=== PATIENT | female | born 1950 | race African-American/Black ===

== ENCOUNTER → 2017-04-11 | Outpatient (CLI) | payer OTHER, MEDICARE ==
[~2017-04-11] MED LIST: AC325T PO; ALBU17AE23 IH; ALBU8.5H2 IH; ASP325T PO; CEFU500T5 PO; FURO40TA4 PO; KCL20TCR PO; LEVO500T2 PO; LISI-594 PO; METO25TA PO; WARF7.5T PO; WRF5T PO; qvar IH
--- NOTE | 2017-04-11 13:53 | Diagnostic Imaging Report ---
PROCEDURE: CT chest without contrast. TECHNIQUE: Multiple contiguous axial images were obtained through the chest without the use of intravenous contrast. INDICATION: One-year followup for pulmonary nodule. History of sarcoidosis. Comparison with 03/26/2016. FINDINGS: Scattered 4 and 5 mm pulmonary nodules again noted bilaterally with no change. There is atelectasis within the lingula which is slightly more prominent today than on previous exam. No evidence of bronchial obstruction. There is a new subpleural tree-in-bud infiltrate in the region of the right upper lobe along the major fissure. The previous infiltrate medially in the right lower lobe has resolved. No mediastinal or hilar adenopathy of pathologic size is occurred. Atherosclerotic changes aorta again noted without aneurysm. Pacemaker present. Leads appear in good position. No pleural effusion or pericardial effusion. IMPRESSION: 1. Scattered 4 and 5 mm nodules appear stable. No new nodules have developed. 2. Left lingular atelectasis is slightly more prominent today. 3. New subtle subpleural tree-in-bud infiltrate in the right upper lobe laterally has developed. Similar appearing infiltrate in the right lower lobe medially on previous study has resolved. Dictated by: Dictated on workstation # [id number]
== END ==
LOC: RAD 12:56
PROVIDERS: ATTEND Internal Medicine Critical Care Medicine
DX: R91.8 Other nonspecific abnormal finding of lung field (principal); I50.43 Acute on chronic combined systolic (congestive) and diastolic (congestive) heart failure; N17.9 Acute kidney failure, unspecified; E66.9 Obesity, unspecified; Z87.09 Personal history of other diseases of the respiratory system
CPT/HCPCS: 71250

== ENCOUNTER → 2017-05-23 | Outpatient (CLI) | payer OTHER, MEDICARE | LOC: CARD 10:40 | PROVIDERS: ATTEND Internal Medicine Cardiovascular Disease | DX: I48.92 Unspecified atrial flutter (principal); I50.42 Chronic combined systolic (congestive) and diastolic (congestive) heart failure; N18.3 Chronic kidney disease, stage 3 (moderate); R91.1 Solitary pulmonary nodule; E66.8 Other obesity; I42.0 Dilated cardiomyopathy; I27.0 Primary pulmonary hypertension | CPT/HCPCS: 93306 ==

== ENCOUNTER → 2017-07-29 | Outpatient (CLI) | payer OTHER, MEDICARE ==
[2017-07-29 13:14] LABS: BASOPHILS % (AUTO) 0 % (0-10); EOSINOPHILS # (AUTO) 0.1 10^3/uL (0.0-0.3); EOSINOPHILS % (AUTO) 2 % (0-10); HEMATOCRIT 37 % (35-52); HEMOGLOBIN 11.9 G/DL (11.5-16.0); LYMPHOCYTES % (AUTO) 22 % (12-44); MEAN CORPUSCULAR HEMOGLOBIN 27 PG (25-34); MEAN CORPUSCULAR HGB CONC 33 G/DL (32-36); MEAN CORPUSCULAR VOLUME 84 FL (80-99); MEAN PLATELET VOLUME 10.4 FL (7.4-10.4); MONOCYTES # (AUTO) 0.6 X 10^3 (0.0-1.0); MONOCYTES % (AUTO) 12 % (0-12); NEUTROPHILS # (AUTO) 2.9 X 10^3 (1.8-7.8); NEUTROPHILS % (AUTO) 64 % (42-75); PLATELET COUNT 224 10^3/uL (130-400); RED BLOOD COUNT 4.37 10^6/uL (4.35-5.85); RED CELL DISTRIBUTION WIDTH 14.9 % (10.0-14.5); WHITE BLOOD COUNT 4.6 10^3/uL (4.3-11.0)
[2017-07-29 13:16] LABS: BILIRUBIN,URINE NEGATIVE (NEGATIVE); CLARITY,URINE CLEAR; COLOR,URINE YELLOW; GLUCOSE, URINE (UA) NEGATIVE (NEGATIVE); KETONES,URINE NEGATIVE (NEGATIVE); LEUKOCYTE ESTERASE ,URINE NEGATIVE (NEGATIVE); NITRITE,URINE NEGATIVE (NEGATIVE); PH,URINE 6 (5-9); PROTEIN,URINE NEGATIVE (NEGATIVE); UROBILINOGEN,URINE NORMAL (NORMAL)
[2017-07-29 13:29] LABS: BACTERIA,URINE NEGATIVE /HPF; SQUAMOUS EPITHELIAL CELL,UR 0-2 /HPF
[2017-07-29 13:36] LABS: CALCIUM 9.6 MG/DL (8.5-10.1); CREATININE SERUM 1.77 MG/DL (0.60-1.30); PHOSPHORUS 4.1 MG/DL (2.3-4.7); POTASSIUM 4.7 MMOL/L (3.6-5.0); URIC ACID 7.7 MG/DL (2.6-7.2)
[2017-07-29 13:52] LABS: URINE CREATININE FOR RATIO 29 MG/DL (30-125); URINE PROTEIN FOR RATIO ONLY < 6 MG/DL (6-12)
--- NOTE | 2017-07-29 14:31 | Diagnostic Imaging Report ---
EXAMINATION: Bilateral renal ultrasound. INDICATION: Chronic kidney disease. COMPARISON: There are no prior ultrasound studies available for comparison. FINDINGS: Both kidneys were identified. The right kidney measures 8.9 x 4.3 x 4.7 cm while the left kidney is estimated to be 8.8 x 5.6 x 5.1 cm. There is no evidence for a solid renal mass or for hydronephrosis of either kidney. The renal cortices are normal in thickness and echogenicity. There is no evidence for chronic medical renal disease. There is no shadowing from the kidneys to suggest nephrolithiasis. The bladder is only partially filled and consequently not well evaluated. There is no obvious bladder abnormality identified, although neither ureteral jet was visualized. IMPRESSION: 1. There is no evidence for a solid renal mass or for an acute abnormality of either kidney. 2. The renal cortices are normal in thickness and echogenicity. 3. There is no obvious bladder abnormality noted, although neither ureteral jet was visualized. Dictated by: Dictated on workstation # [id number]
== END ==
LOC: RAD 12:47
PROVIDERS: ATTEND Internal Medicine Nephrology
DX: N18.4 Chronic kidney disease, stage 4 (severe) (principal); I50.9 Heart failure, unspecified; D64.9 Anemia, unspecified; I27.20 Pulmonary hypertension, unspecified
CPT/HCPCS: 36415; 76770; 80069; 81000; 82306; 82570; 82728; 83540; 83970; 84156; 84550; 85025

== ENCOUNTER → 2017-11-25 | Outpatient (CLI) | payer OTHER, MEDICARE ==
[~2017-11-25] MED LIST changes: +DOXY100T2 PO; +LEVO250T11 PO; +ONDA8TAB9 PO
[2017-11-25 15:59] LABS: ABG BASE EXCESS -0.4 MMOL/L (-2.5-2.5); ABG OXYGEN SATURATION 88 % (94-100); ABG PCO2 40 MMHG (35-45); ABG PH 7.39 (7.37-7.43); ABG PO2 61 MMHG (79-93); ABG TCO2 25.1 MMOL/L (21.0-31.0)
[2017-11-25 16:01] LABS: ALLENS TEST YES-POS; INSPIRED O2 2L; PATIENT TEMP 98.3; VENTILATOR NO
== END ==
LOC: RT 15:21
PROVIDERS: ATTEND Nurse Practitioner Family
DX: J45.901 Unspecified asthma with (acute) exacerbation (principal)
CPT/HCPCS: 36600; 82805

== ENCOUNTER → 2017-12-01 | Outpatient (CLI) | payer OTHER, MEDICARE ==
--- NOTE | 2017-12-01 11:36 | Diagnostic Imaging Report ---
PROCEDURE: CT chest without contrast. TECHNIQUE: Multiple contiguous axial images were obtained through the chest without the use of intravenous contrast. INDICATION: Asthma, exacerbation, and lung nodule. COMPARISON: 04/11/2017. FINDINGS: There is cardiomegaly. A pacemaker overlies the left hemithorax. Note is again made of scattered 4-5 mm nodules bilaterally which are unchanged. There is some minimal atelectasis and/or scarring in the lingula. There is no pleural or pericardial fluid. There is no pneumothorax. There is no pathologically enlarged adenopathy in the chest. There are degenerative changes in the spine. There is cholelithiasis. There are questionable inflammatory changes about the kidneys; however, these are only partially visualized on this exam. IMPRESSION: Stable bilateral 4-5 mm pulmonary nodules. Scarring or atelectasis in the lingula. Cardiomegaly. Cholelithiasis. Degenerative changes in the spine. Questionable inflammatory changes about the kidneys which are only partially visualized on this exam. Dictated by: Dictated on workstation # [id number]
--- NOTE | 2017-12-01 12:44 | Diagnostic Imaging Report ---
PROCEDURE: US Venous Lower Ext Ozzy. TECHNIQUE: Multiple real-time grayscale images were obtained over the lower extremities in various projections, bilaterally. Additional duplex Doppler and color Doppler images were also obtained. INDICATION: Bilateral leg edema. FINDINGS: The common femoral, femoral, popliteal veins and tibial veins demonstrate normal response to compression, augmentation and Valsalva. There is a Jolly's cyst measuring 4.2 x 1.2 x 1.9 cm. There are no other lower extremity fluid collections or masses IMPRESSION: No evidence of deep venous thrombosis in either lower extremity. Jolly's cyst. Dictated by: Dictated on workstation # [id number]
== END ==
LOC: RAD 10:39
PROVIDERS: ATTEND Nurse Practitioner Family
DX: M79.89 Other specified soft tissue disorders (principal); J45.901 Unspecified asthma with (acute) exacerbation; R91.8 Other nonspecific abnormal finding of lung field
CPT/HCPCS: 71250; 93970

== ENCOUNTER 2017-12-05 12:12 | Emergency (ER) | payer OTHER, MEDICARE ==
[~2017-12-05] VITALS: Ht 165.1 cm; Wt 113.9 kg
[~2017-12-05 12:12] MED LIST changes: -DOXY100T2 PO; -LEVO250T11 PO; -ONDA8TAB9 PO
[2017-12-05] MEDS ORDERED: raNItidine 50 MG/2 ML INJ (ZANTAC) ONE (12:27)
[2017-12-05] MEDS ORDERED: diphenhydrAMINE 50 MG/ML INJ (BENADRYL) ONE (12:28)
[2017-12-05] MEDS ORDERED: NS IV 1000 ML 1,000 ML ONE (12:28)
[2017-12-05] MEDS ORDERED: methylPREDNISolone 125 MG (Solu-MEDROL) VIAL ONE (12:28)
[2017-12-05 13:59] LABS: BASOPHILS % (AUTO) 0 % (0-10); EOSINOPHILS % (AUTO) 0 % (0-10); HEMATOCRIT 42 % (35-52); HEMOGLOBIN 13.7 G/DL (11.5-16.0); LYMPHOCYTES # (AUTO) 0.3 X 10^3 (1.0-4.0); LYMPHOCYTES % (AUTO) 4 % (12-44); MEAN CORPUSCULAR HEMOGLOBIN 29 PG (25-34); MEAN CORPUSCULAR HGB CONC 33 G/DL (32-36); MEAN CORPUSCULAR VOLUME 88 FL (80-99); MEAN PLATELET VOLUME 10.6 FL (7.4-10.4); MONOCYTES # (AUTO) 0.3 X 10^3 (0.0-1.0); MONOCYTES % (AUTO) 3 % (0-12); NEUTROPHILS # (AUTO) 7.6 X 10^3 (1.8-7.8); NEUTROPHILS % (AUTO) 93 % (42-75); PLATELET COUNT 197 10^3/uL (130-400); RED BLOOD COUNT 4.76 10^6/uL (4.35-5.85); RED CELL DISTRIBUTION WIDTH 16.4 % (10.0-14.5); WHITE BLOOD COUNT 8.2 10^3/uL (4.3-11.0)
[2017-12-05 14:16] LABS: BAND NEUTROPHILS 0 %; BASOPHILS % (MANUAL) 0 %; EOSINOPHILS % (MANUAL) 0 %; LYMPHOCYTES % (MANUAL) 5 %; MONOCYTES % (MANUAL) 1 %; NEUTROPHILS % (MANUAL) 94 %; RBC MORPH NORMAL
[2017-12-05 14:22] LABS: ALANINE AMINOTRANSFERASE 119 U/L (0-55); ALBUMIN 3.7 GM/DL (3.2-4.5); ALKALINE PHOSPHATASE 287 U/L (40-136); BUN/CREATININE RATIO 29; CALCIUM 9.1 MG/DL (8.5-10.1); CARBON DIOXIDE 26 MMOL/L (21-32); CHLORIDE 104 MMOL/L (98-107); CREATININE SERUM 1.54 MG/DL (0.60-1.30); GFR ESTIMATED 41; GLUCOSE 122 MG/DL (70-105); POTASSIUM 4.1 MMOL/L (3.6-5.0); SODIUM 138 MMOL/L (135-145); TOTAL PROTEIN 6.4 GM/DL (6.4-8.2)
[2017-12-05] MEDS ORDERED: RT-ALBUTEROL/IPRATROPIUM 3 ML (DUONEB) VIAL INH ONE (14:45)
--- NOTE | 2017-12-05 15:05 | Diagnostic Imaging Report ---
INDICATION: Shortness of breath. EXAMINATION: PA and lateral chest was obtained at 2:34 p.m. COMPARISON: 10/01/2013. FINDINGS: There is worsening cardiomegaly. Pacemaker device is unchanged. There is central vascular prominence. There is some infiltrate or atelectasis in the right base which appears chronic or recurrent compared to the previous study. There is no pneumothorax or pleural fluid. IMPRESSION: Worsening cardiomegaly and central vascular congestion compared to the prior study. There is some infiltrate or atelectasis in the right base which appears either recurrent or chronic compared to the previous study of 10/01/2013. There is no pneumothorax or pleural fluid. Dictated by: Dictated on workstation # [id number]
[2017-12-05 15:40] VITALS: BP 100/80
--- NOTE | 2017-12-05 15:44 | ED General ---
General Chief Complaint: Respiratory Problems Stated Complaint: SOB,NAUSEA,SWELLING ON LE Nursing Triage Note: Pt c/o worsening SOA over past month. Pt reports SOA is worse today and she feels more tired than normal. Pt reports she was seen by her field cane scaler helper yesterday and had lasix dosage changed. Pt has hx CHF and COPD. Nursing Sepsis Screen: No Definite Risk Source of Information: Patient Exam Limitations: No Limitations History of Present Illness Date Seen by Provider: Dec 05, 2017 Time Seen by Provider: 12:42 Initial Comments This 67-year-old woman presents to emergency room with complaints of shortness of air, dyspnea on exertion, and increased lower extremity swelling over the last 2-3 weeks. She has had some nausea and mild cough but denies fever or production of sputum with her cough. She has history of A. fib and is out of her Eliquis because of an insurance change. She presently takes Lasix and recently had her dosing doubled by her field cane scaler helper. She made this change about 2 days ago. Patient has COPD and CHF. She has maintenance inhaled medications that is presently out of her albuterol inhaler. Her primary care provider is Dr. Eden, her prizer hand is Dr. Wilson, her field cane scaler helper is Dr. Huff, and her strainer cleaner is Dr. Rose. Allergies and Home Medications Allergies Coded Allergies: No Known Drug Allergies (Unverified , 11/03/11) Home Medications Cefuroxime Axetil 500 Mg Tablet, 500 MG PO BID, (Reported) TAKE FOR 5 DAYS Furosemide 40 Mg Tablet, 40 MG PO DAILY, (Reported) Lisinopril 5 Mg Tablet, 5 MG PO DAILY, (Reported) Metoprolol Succinate 25 Mg Tab.sr.24h, 25 MG PO DAILY, (Reported) Potassium Chloride 20 Meq Tab, 20 MEQ PO DAILY, (Reported) Warfarin Sod 7.5 Mg Tablet, 7.5 MG PO UD, (Reported) ON FRIDAY AND FRIDAY Warfarin Sodium 5 Mg Tablet, 5 MG PO UD, (Reported) EVERY DAY EXCEPT FRIDAY AND FRIDAY Patient Home Medication List Home Medication List Reviewed: Yes (this list was loaded in the note prior to medication correction) Review of Systems Constitutional: no symptoms reported EENTM: no symptoms reported Respiratory: see HPI Cardiovascular: see HPI Gastrointestinal: see HPI Genitourinary: no symptoms reported : No Musculoskeletal: no symptoms reported Skin: no symptoms reported Psychiatric/Neurological: No Symptoms Reported Hematologic/Lymphatic: No Symptoms Reported Past Myfvpji-Hotgls-Dpcmvt Hx Past Med/Social Hx: Reviewed and Corrections made Patient Social History Alcohol Use: Denies Use Recreational Drug Use: No Recent Foreign Travel: No Contact w/Someone Who Travel: No Recent Infectious Disease Expo: No Recent Hopitalizations: Yes Physical Abuse: No Sexual Abuse: No Immunizations Up To Date Date of Influenza Vaccine: Feb 06, 2012 Past Medical History Surgeries: Yes (Appy and hysterectomy ') Respiratory: Yes Asthma, COPD Cardiac: Yes (low ef, CHF) Atrial Fibrillation Neurological: Yes Reproductive Disorders: Yes Sexually Transmitted Disease: No Genitourinary: Yes Renal Failure Gastrointestinal: No Endocrine: No HEENT: No Cancer: No Psychosocial: No Nursing Suicide Risk Score: 0 Blood Disorders: Yes Physical Exam Vital Signs Vital Signs - First Documented 12/05/17 12/05/17 12:15 15:40 Temp 97.8 Pulse 81 Resp 15 B/P (MAP) 120/83 (95) Pulse Ox 99 O2 Delivery Room Air Capillary Refill : Less Than 3 Seconds Height, Weight, BMI Height: 5'5.00" Weight: 251lbs. oz. 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 Norm as Tested Skin: Normal Color, Warm/Dry Progress/Results/Core Measures Suspected Sepsis Recent Fever Within 48 Hours: No Infection Criteria Present: None New/Unexplained Altered Menta: No Sepsis Screen: No Definite Risk SIRS Temperature:97.8 Pulse: 81 Respiratory Rate: Laboratory Tests 12/05/17 13:45: White Blood Count 8.2 Blood Pressure 120 /83 Mean: 95 Laboratory Tests 12/05/17 13:45: Creatinine 1.54H, Platelet Count 197, Total Bilirubin 2.0H Results/Orders Lab Results Laboratory Tests Test 12/05/17 13:45 Range/Units White Blood Count 8.2 4.3-11.0 10^3/uL Red Blood Count 4.76 4.35-5.85 10^6/uL Hemoglobin 13.7 11.5-16.0 G/DL Hematocrit 42 35-52 % Mean Corpuscular Volume 88 80-99 FL Mean Corpuscular Hemoglobin 29 25-34 PG Mean Corpuscular Hemoglobin Concent 33 32-36 G/DL Red Cell Distribution Width 16.4 H 10.0-14.5 % Platelet Count 197 130-400 10^3/uL Mean Platelet Volume 10.6 H 7.4-10.4 FL Neutrophils (%) (Auto) 93 H 42-75 % Lymphocytes (%) (Auto) 4 L 12-44 % Monocytes (%) (Auto) 3 0-12 % Eosinophils (%) (Auto) 0 0-10 % Basophils (%) (Auto) 0 0-10 % Neutrophils # (Auto) 7.6 1.8-7.8 X 10^3 Lymphocytes # (Auto) 0.3 L 1.0-4.0 X 10^3 Monocytes # (Auto) 0.3 0.0-1.0 X 10^3 Eosinophils # (Auto) 0.0 0.0-0.3 10^3/uL Basophils # (Auto) 0.0 0.0-0.1 10^3/uL Neutrophils % (Manual) 94 % Lymphocytes % (Manual) 5 % Monocytes % (Manual) 1 % Eosinophils % (Manual) 0 % Basophils % (Manual) 0 % Band Neutrophils 0 % Blood Morphology Comment NORMAL Sodium Level 138 135-145 MMOL/L Potassium Level 4.1 3.6-5.0 MMOL/L Chloride Level 104 98-107 MMOL/L Carbon Dioxide Level 26 21-32 MMOL/L Anion Gap 8 5-14 MMOL/L Blood Urea Nitrogen 44 H 7-18 MG/DL Creatinine 1.54 H 0.60-1.30 MG/DL Estimat Glomerular Filtration Rate 41 BUN/Creatinine Ratio 29 Glucose Level 122 H 70-105 MG/DL Calcium Level 9.1 8.5-10.1 MG/DL Total Bilirubin 2.0 H 0.1-1.0 MG/DL Aspartate Amino Transf (AST/SGOT) 65 H 5-34 U/L Alanine Aminotransferase (ALT/SGPT) 119 H 0-55 U/L Alkaline Phosphatase 287 H 40-136 U/L Troponin I < 0.30 <0.30 NG/ML B-Type Natriuretic Peptide 2508.6 H <100.0 PG/ML Total Protein 6.4 6.4-8.2 GM/DL Albumin 3.7 3.2-4.5 GM/DL My Orders Orders - JERI GUTIERRES MD Ranitidine Injection (Zantac Injection) (12/05/17 12:27) Diphenhydramine Injection (Benadryl Inje (12/05/17 12:28) Methylprednisolone Sod Succ (Solu-Medrol (12/05/17 12:28) Ns Iv 1000 Ml (Sodium Chloride 0.9%) (12/05/17 12:28) BNP (12/05/17 12:42) Cbc With Automated Diff (12/05/17 12:42) Comprehensive Metabolic Panel (12/05/17 12:42) Troponin I (12/05/17 12:42) Saline Lock/Iv-Start (12/05/17 12:42) Ekg Tracing (12/05/17 12:42) Monitor-Rhythm Ecg Trace Only (12/05/17 12:42) Chest Pa/Lat (2 View) (12/05/17 12:42) Manual Differential (12/05/17 13:45) Albuterol/Ipra Inhalation Soln (Duoneb I (12/05/17 14:45) Svn Small Volume Nebulizer (12/05/17 14:40) Medications Given in ED Vital Signs/I&O Capillary Refill : Less Than 3 Seconds Blood Pressure Mean: 95 Progress Note : Progress Note Patient's workup revealed features of congestive heart failure. Patient's dosing of Lasix was just recently changed. Patient does believe she has diuresed more over the last 24 hours and has perhaps not been patient enough with the dosing change. Encouraged patient to have better compliance with her medications. She has been without her albuterol and her Eliquis for a couple of weeks due to an insurance change. She did check with the pharmacy today and noted she is now able to fill her medications. She plans to pick them up today. We discussed adding perhaps an additional 20 mg of Lasix to the morning dose if necessary for further diuresis. She received a DuoNeb treatment in the ER which was helpful. She plans to discuss a nebulizer machine prescription with Dr. Rose. In the meantime, she will use her albuterol rescue inhaler as needed for shortness of breath. We also discussed strategies for better diuresis including elevating legs more and taking her p.m. dose of Lasix earlier in the afternoon. Return precautions discussed. ECG Initial ECG Impression Date: Dec 05, 2017 Initial ECG Impression Time: 13:35 Initial ECG Rate: 94 Initial ECG Rhythm: A Fib/Flutter Comment Atrial fibrillation with no acute ST elevation or depression. LVH with secondary repolarization abnormality by automated read. Diagnostic Imaging Diagonstic Imaging: Xray Plain Films/CT/US/NM/MRI: chest Comments Chest x-ray viewed by me and report reviewed. See report below: NAME: MARQUIS SHEEHAN [facility] REC#: [id number] PT STATUS: DEP ER : [id number] PHYSICIAN: JERI GUTIERRES MD ADMIT DATE: 12/05/17/ER Signed Date of Exam: 12/05/17 CHEST PA/LAT (2 VIEW) INDICATION: Shortness of breath. EXAMINATION: PA and lateral chest was obtained at 2:34 p.m. COMPARISON: 10/01/2013. FINDINGS: There is worsening cardiomegaly. Pacemaker device is unchanged. There is central vascular prominence. There is some infiltrate or atelectasis in the right base which appears chronic or recurrent compared to the previous study. There is no pneumothorax or pleural fluid. IMPRESSION: Worsening cardiomegaly and central vascular congestion compared to the prior study. There is some infiltrate or atelectasis in the right base which appears either recurrent or chronic compared to the previous study of 10/01/2013. There is no pneumothorax or pleural fluid. Dictated by: Dictated on workstation # [id number] Dict: 12/05/17 1456 Trans: 12/05/[id number] Interpreted by: FERNANDO ELIAS MD Electronically signed by: FERNANDO ELIAS MD 12/05/17 358 Departure Impression Primary Impression: COPD exacerbation Additional Impressions: CHF exacerbation Qualified Codes: I50.9 - Heart failure, unspecified Atrial fibrillation Qualified Codes: I48.2 - Chronic atrial fibrillation Disposition: HOME, SELF-CARE Condition: Improved Departure-Patient Inst. Decision time for Depature: 15:30 Referrals: PILY EDEN MD (PCP/Family) Primary Care Physician Patient Instructions: CHF, Chronic Obstructive Pulmonary Disease (COPD), Including Emphysema Add. Discharge Instructions: Fill the medications your out of today and resume use. You may use your albuterol (Ventolin) inhaler up to 2 puffs every 4 hours. Continue your maintenance inhalers. Call Dr. Rose's office on Friday to inquire about a nebulizer machine. If needed, you may add an additional 20 mg of Lasix (total dose of 60 mg) to your morning dose. Take your second dose of Lasix early in the afternoon to avoid getting up in the night to urinate. Follow-up with your field cane scaler helper on Friday regarding your Lasix dosing. Complete your prednisone steroids as prescribed. Return to care if you have worsening symptoms or if you develop new symptoms such as fever or productive cough. All discharge instructions reviewed with patient and/or family. Voiced understanding. Copy Copies To 1: PILY EDEN MD Copies To 2: PHILLIP ROSE JOSHUA T MD Dec 05, 2017 15:44
== END 2017-12-05 15:52 | disposition home or self-care (01) ==
LOC: EDUNIT# 12:12 → ER 12:14
DX: J44.1 Chronic obstructive pulmonary disease with (acute) exacerbation (principal); I48.91 Unspecified atrial fibrillation; I50.9 Heart failure, unspecified; Z90.710 Acquired absence of both cervix and uterus; Z79.51 Long term (current) use of inhaled steroids; Z79.01 Long term (current) use of anticoagulants
CPT/HCPCS: 36415; 71046; 80053; 83880; 84484; 85007; 85027; 93005; 93041; 94640

== ENCOUNTER 2017-12-10 11:52 | Emergency (ER) | payer OTHER, MEDICARE ==
[~2017-12-10] VITALS: Ht 165.1 cm; Wt 112.5 kg
[2017-12-10] MEDS ORDERED: RT-ALBUTEROL/IPRATROPIUM 3 ML (DUONEB) VIAL INH ONE (12:45)
[2017-12-10 12:48] LABS: BASOPHILS % (AUTO) 0 % (0-10); EOSINOPHILS % (AUTO) 0 % (0-10); HEMATOCRIT 43 % (35-52); HEMOGLOBIN 14.3 G/DL (11.5-16.0); LYMPHOCYTES # (AUTO) 0.7 X 10^3 (1.0-4.0); LYMPHOCYTES % (AUTO) 8 % (12-44); MEAN CORPUSCULAR HEMOGLOBIN 30 PG (25-34); MEAN CORPUSCULAR HGB CONC 33 G/DL (32-36); MEAN CORPUSCULAR VOLUME 90 FL (80-99); MEAN PLATELET VOLUME 10.6 FL (7.4-10.4); MONOCYTES # (AUTO) 0.7 X 10^3 (0.0-1.0); MONOCYTES % (AUTO) 8 % (0-12); NEUTROPHILS # (AUTO) 7.4 X 10^3 (1.8-7.8); NEUTROPHILS % (AUTO) 83 % (42-75); PLATELET COUNT 194 10^3/uL (130-400); RED BLOOD COUNT 4.79 10^6/uL (4.35-5.85); RED CELL DISTRIBUTION WIDTH 16.9 % (10.0-14.5); WHITE BLOOD COUNT 8.8 10^3/uL (4.3-11.0)
[2017-12-10 13:01] LABS: ALBUMIN 3.6 GM/DL (3.2-4.5); BILIRUBIN,TOTAL 2.3 MG/DL (0.1-1.0); CREATININE SERUM 1.67 MG/DL (0.60-1.30); POTASSIUM 3.8 MMOL/L (3.6-5.0); TOTAL PROTEIN 6.5 GM/DL (6.4-8.2)
--- NOTE | 2017-12-10 13:11 | ED Respiratory ---
General Chief Complaint: Respiratory Problems Stated Complaint: SOB Nursing Triage Note: ARRIVED VIA WC TO ROOM 02. STATES SHE WAS HERE ON FRIDAY AND STILL FEELS WORN OUT AND IS HAVING SOA. STATES SHE USUALLY USES OXYGEN AT NOC BUT IS NOW HAVING TO USE IT DURING THE DAY. History of Present Illness Date Seen by Provider: Dec 10, 2017 Time Seen by Provider: 12:45 Initial Comments 67 year old -[place] female presents for progressive shortness of air. She's had long-standing history of COPD who reports over the last few days she has been having SOA on exertion and at rest. Previously she would use oxygen per nasal cannula at night and she is now requiring during the day at times. Timing/Duration: intermittent Severity: mild Modifying Factors: Improves With Oxygen, Improves With Rest Associated Symptoms: cough, shortness of breath, wheezing Allergies and Home Medications Allergies Coded Allergies: No Known Drug Allergies (Unverified , 11/03/11) Home Medications Cefuroxime Axetil 500 Mg Tablet, 500 MG PO BID, (Reported) TAKE FOR 5 DAYS Doxycycline Hyclate 100 Mg Tablet, 100 MG PO BID 200 mg bid for 3 days, then 100 mg bid for 4 days Prescribed by: NELSON LOVE on 12/10/17 1459 Furosemide 40 Mg Tablet, 40 MG PO DAILY, (Reported) Lisinopril 5 Mg Tablet, 5 MG PO DAILY, (Reported) Metoprolol Succinate 25 Mg Tab.sr.24h, 25 MG PO DAILY, (Reported) Ondansetron 8 Mg Tab.rapdis, 8 MG PO Q8H PRN for NAUSEA/VOMITING-1ST LINE Prescribed by: NELSON LOVE on 12/10/17 1540 Potassium Chloride 20 Meq Tab, 20 MEQ PO DAILY, (Reported) Warfarin Sod 7.5 Mg Tablet, 7.5 MG PO UD, (Reported) ON FRIDAY AND FRIDAY Warfarin Sodium 5 Mg Tablet, 5 MG PO UD, (Reported) EVERY DAY EXCEPT FRIDAY AND FRIDAY Patient Home Medication List Home Medication List Reviewed: Yes Review of Systems Constitutional: no symptoms reported, see HPI Respiratory: see HPI, cough, dyspnea on exertion, short of breath, wheezing All Other Systems Reviewed Negative Unless Noted: Yes Past Tjueveg-Vthaal-Dhensf Hx Past Med/Social Hx: Reviewed Nursing Past Med/Soc Hx Patient Social History Alcohol Use: Denies Use Recreational Drug Use: No Smoking Status: Never a Smoker Recent Foreign Travel: No Contact w/Someone Who Travel: No Recent Infectious Disease Expo: No Recent Hopitalizations: Yes Immunizations Up To Date Date of Influenza Vaccine: Feb 06, 2012 Past Medical History Surgeries: Yes (Appy and hysterectomy ) Respiratory: Yes Asthma, COPD Cardiac: Yes (low ef, CHF) Atrial Fibrillation Neurological: Yes Reproductive Disorders: Yes Sexually Transmitted Disease: No Genitourinary: Yes Renal Failure Gastrointestinal: No Musculoskeletal: No Endocrine: No HEENT: No Cancer: No Psychosocial: No Integumentary: No Blood Disorders: Yes Physical Exam Vital Signs - First Documented 12/10/17 11:52 Temp 98.0 Pulse 102 Resp 18 B/P (MAP) 119/90 (100) Pulse Ox 94 O2 Delivery Nasal Cannula O2 Flow Rate 2.00 Capillary Refill : Less Than 3 Seconds Height: 5'5.00" Weight: 248lbs. oz. 112.427866ow; BMI Method:Stated General Appearance: WD/WN, no apparent distress Eyes: Bilateral Eye Normal Inspection, Bilateral Eye PERRL, Bilateral Eye EOMI HEENT: PERRL/EOMI, normal ENT inspection, TMs normal, pharynx normal Neck: non-tender, full range of motion, supple, normal inspection Respiratory: chest non-tender, wheezing, expiration, inspiration Cardiovascular: normal peripheral pulses, tachycardia Gastrointestinal: normal bowel sounds, non tender, soft Neurologic/Psychiatric: no motor/sensory deficits, alert, normal mood/affect, oriented x 3 Skin: normal color, warm/dry Progress/Results/Core Measures Suspected Sepsis Recent Fever Within 48 Hours: No Infection Criteria Present: None New/Unexplained Altered Menta: No Sepsis Screen: No Definite Risk SIRS Temperature:98.0 Pulse: 102 Respiratory Rate: 18 Laboratory Tests 12/10/17 12:13: White Blood Count 8.8 Blood Pressure 119 /90 Mean: 100 Laboratory Tests 12/10/17 12:13: Creatinine 1.67H, Platelet Count 194, Total Bilirubin 2.3H Results/Orders Lab Results Laboratory Tests Test 12/10/17 12:13 Range/Units White Blood Count 8.8 4.3-11.0 10^3/uL Red Blood Count 4.79 4.35-5.85 10^6/uL Hemoglobin 14.3 11.5-16.0 G/DL Hematocrit 43 35-52 % Mean Corpuscular Volume 90 80-99 FL Mean Corpuscular Hemoglobin 30 25-34 PG Mean Corpuscular Hemoglobin Concent 33 32-36 G/DL Red Cell Distribution Width 16.9 H 10.0-14.5 % Platelet Count 194 130-400 10^3/uL Mean Platelet Volume 10.6 H 7.4-10.4 FL Neutrophils (%) (Auto) 83 H 42-75 % Lymphocytes (%) (Auto) 8 L 12-44 % Monocytes (%) (Auto) 8 0-12 % Eosinophils (%) (Auto) 0 0-10 % Basophils (%) (Auto) 0 0-10 % Neutrophils # (Auto) 7.4 1.8-7.8 X 10^3 Lymphocytes # (Auto) 0.7 L 1.0-4.0 X 10^3 Monocytes # (Auto) 0.7 0.0-1.0 X 10^3 Eosinophils # (Auto) 0.0 0.0-0.3 10^3/uL Basophils # (Auto) 0.0 0.0-0.1 10^3/uL Sodium Level 137 135-145 MMOL/L Potassium Level 3.8 3.6-5.0 MMOL/L Chloride Level 99 98-107 MMOL/L Carbon Dioxide Level 26 21-32 MMOL/L Anion Gap 12 5-14 MMOL/L Blood Urea Nitrogen 38 H 7-18 MG/DL Creatinine 1.67 H 0.60-1.30 MG/DL Estimat Glomerular Filtration Rate 37 BUN/Creatinine Ratio 23 Glucose Level 96 70-105 MG/DL Calcium Level 9.0 8.5-10.1 MG/DL Total Bilirubin 2.3 H 0.1-1.0 MG/DL Aspartate Amino Transf (AST/SGOT) 79 H 5-34 U/L Alanine Aminotransferase (ALT/SGPT) 180 H 0-55 U/L Alkaline Phosphatase 392 H 40-136 U/L Troponin I < 0.30 <0.30 NG/ML B-Type Natriuretic Peptide 2468.5 H <100.0 PG/ML Total Protein 6.5 6.4-8.2 GM/DL Albumin 3.6 3.2-4.5 GM/DL My Orders Orders - NELSON LOVE Ekg Tracing (12/10/17 12:41) Cbc With Automated Diff (12/10/17 12:41) Comprehensive Metabolic Panel (12/10/17 12:41) BNP (12/10/17 12:41) Albuterol/Ipra Inhalation Soln (Duoneb I (12/10/17 12:45) Chest Pa/Lat (2 View) (12/10/17 12:41) O2 (12/10/17 12:41) Saline Lock/Iv-Start (12/10/17 12:41) Monitor-Rhythm Ecg Trace Only (12/10/17 12:41) Svn Small Volume Nebulizer (12/10/17 12:41) Troponin I (12/10/17 13:07) General/Regular (12/10/17 Lunch) Methylprednisolone Sod Succ (Solu-Medrol (12/10/17 14:30) Levofloxacin Tablet (Levaquin Tablet) (12/10/17 14:37) Ondansetron Injection (Zofran Injectio (12/10/17 15:45) Medications Given in ED Current Medications Medications Dose Ordered Sig/Jennifer Route Start Time Stop Time Status Last Admin Dose Admin Albuterol/ Ipratropium 3 ml ONCE ONCE INH 12/10/17 12:45 12/10/17 12:46 DC 12/10/17 12:54 3 ML Methylprednisolone Sodium Succinate 125 mg ONCE ONCE IVP 12/10/17 14:30 12/10/17 14:31 DC 12/10/17 14:51 125 MG Ondansetron HCl 4 mg ONCE ONCE IVP 12/10/17 15:45 12/10/17 15:50 DC 12/10/17 15:35 4 MG Vital Signs/I&O 12/10/17 12/10/17 12/10/17 12/10/17 11:52 11:52 12:54 16:00 Temp 98.0 Pulse 102 75 Resp 18 16 B/P (MAP) 119/90 (100) 115/86 Pulse Ox 94 98 93 O2 Delivery Nasal Cannula Room Air Nasal Cannula Room Air O2 Flow Rate 2.00 2.00 Capillary Refill : Less Than 3 Seconds Blood Pressure Mean: 100 Progress Note : Time: 12:45 Progress Note Initial evaluation completed, SaO2 on room air 92-93%, recommended oxygen per nasal cannula 2 L and SaO2 improved to 96%. We'll obtain EKG, chest x-ray and labs. RT complete DuoNeb treatment. 1315 slight improvement of breathing after obtaining the DuoNeb treatment. 1400 Heart rate 90s. Patient reports not taking any of her home medications this morning, she has been with her and gave her metoprolol and amiodarone. 1445 Heart rate down to 60-70s. Patient has eaten and now is complaining of nausea, Zofran 4 mg IV. 1500 discharge instructions and return precautions reviewed with the patient. Stressed the importance of being compliant with her medication regimen. Encouraged to use oxygen at all times during the day and at night until her pneumonia improves. ECG Initial ECG Impression Date: Dec 10, 2017 Initial ECG Impression Time: 12:52 Initial ECG Rate: 102 Initial ECG Rhythm: S.Tach Initial ECG Intervals: Normal Initial ECG Intervals HI 196, QRSD 126, QT 368, QTC 480. Nat[place] P 95, QRS 251, T 100 Initial ECG Impression: Normal Initial ECG Comparisson: Unchanged Comment Reviewed with Dr. Bryson, agreed with interpretation. Diagnostic Imaging Diagonstic Imaging: Xray Plain Films/CT/US/NM/MRI: chest Comments NAME: MARQUIS [facility]EHAN [facility] REC#: [id number] PT STATUS: REG ER : 1950 PHYSICIAN: NELSON LOVE ADMIT DATE: 12/10/17/ER Draft Date of Exam:12/10/17 CHEST PA/LAT (2 VIEW) Indication: Shortness of breath PA and lateral chest obtained at 2:15 hours p.m. and compared to 12/05/2017. There is prominent cardiomegaly with unchanged pacemaker device. There is mild central vascular congestion. There is mild worsening of infiltrate in the right lung base compared to the prior study. There is no pneumothorax or pleural fluid. IMPRESSION: Cardiomegaly and mild central vascular prominence with worsening infiltrate in the right lung base. No pneumothorax or pleural fluid. Dictated on workstation # [id number] Dict: 12/10/17 1335 Trans: 12/10/17 1341 [facility] [id number] Interpreted by: FERNANDO ELIAS MD Electronically signed by: Departure Impression Primary Impression: Right lower lobe pneumonia Qualified Codes: J18.1 - Lobar pneumonia, unspecified organism Additional Impression: CHF exacerbation Qualified Codes: I50.43 - Acute on chronic combined systolic (congestive) and diastolic (congestive) heart failure Disposition: 01 HOME, SELF-CARE Condition: Improved Departure-Patient Inst. Decision time for Depature: 14:45 Referrals: PILY EDEN MD (PCP/Family) Primary Care Physician Patient Instructions: Pneumonia, Adult (DC) Add. Discharge Instructions: Take your medications daily as prescribed. Use your albuterol rescue inhaler 2 puffs every 4 hours as needed. Use the oxygen during the day and at night until your breathing improves. Complete the Doxycycline as prescribed. Schedule follow-up lab studies with Dr. Eden. Continued shortness of air follow-up with Dr. Rose. Return to emergency department for new, acute health care problems. All discharge instructions reviewed with patient and/or family. Voiced understanding. Scripts Ondansetron (Zofran Odt) 8 Mg Tab.rapdis 8 MG PO Q8H PRN for NAUSEA/VOMITING-1ST LINE, #12 TAB 0 Refills Prov: NELSON LOVE 12/10/17 Doxycycline Hyclate (Doxycycline Hyclate) 100 Mg Tablet 100 MG PO BID, #20 TAB 0 Refills 200 mg bid for 3 days, then 100 mg bid for 4 days Prov: NELSON LOVE 12/10/17 Copy Copies To 1: PHILLIP ROSE DO; HENRY SMITH MD FACP [facility]; PILY EDEN MD, AMY ARNP Dec 10, 2017 13:11
--- NOTE | 2017-12-10 13:41 | Diagnostic Imaging Report ---
Indication: Shortness of breath PA and lateral chest obtained at 2:15 hours p.m. and compared to 12/05/2017. There is prominent cardiomegaly with unchanged pacemaker device. There is mild central vascular congestion. There is mild worsening of infiltrate in the right lung base compared to the prior study. There is no pneumothorax or pleural fluid. IMPRESSION: Cardiomegaly and mild central vascular prominence with worsening infiltrate in the right lung base. No pneumothorax or pleural fluid. Dictated by: Dictated on workstation # [id number]
[2017-12-10] MEDS ORDERED: methylPREDNISolone 125 MG (Solu-MEDROL) VIAL IVP ONE (14:30)
[2017-12-10] MEDS ORDERED: LEVOFLOXACIN 500 MG TAB (LEVAQUIN) PO STA (14:37)
[2017-12-10] MEDS ORDERED: LEVO250T11 PO (14:42)
[2017-12-10] MEDS ORDERED: DOXY100T2 PO (14:59)
[2017-12-10] MEDS ORDERED: ONDA8TAB9 PO (15:40)
[2017-12-10] MEDS ORDERED: ONDANSETRON 4 MG/2 ML (SDV) Z0FRAN IVP ONE (15:45)
[2017-12-10 16:00] VITALS: BP 115/86
== END 2017-12-10 16:00 | disposition home or self-care (01) ==
LOC: EDUNIT# 11:52 → ER 11:54
DX: J18.1 Lobar pneumonia, unspecified organism (principal); I50.9 Heart failure, unspecified; J44.9 Chronic obstructive pulmonary disease, unspecified; I48.91 Unspecified atrial fibrillation; Z79.01 Long term (current) use of anticoagulants; Z90.710 Acquired absence of both cervix and uterus
CPT/HCPCS: 36415; 71046; 80053; 83880; 84484; 85025; 93005; 93041; 94640; 94664; 96374; 96375

== ENCOUNTER 2017-12-20 19:44 | Outpatient (CLI) | payer OTHER, MEDICARE ==
[~2017-12-20 19:44] MED LIST changes: +DOXY100T2 PO; +LEVO250T11 PO; +ONDA8TAB9 PO
== END 2017-12-21 06:30 | disposition home or self-care (01) ==
LOC: SLEEP 19:44
PROVIDERS: ATTEND Nurse Practitioner Family
DX: G47.10 Hypersomnia, unspecified (principal); J45.909 Unspecified asthma, uncomplicated; R29.818 Other symptoms and signs involving the nervous system; G47.50 Parasomnia, unspecified; R09.02 Hypoxemia; D86.0 Sarcoidosis of lung
CPT/HCPCS: 95811

== ENCOUNTER 2018-09-22 12:25 | Day surgery (SDC) | payer OTHER, MEDICARE ==
[~2018-09-22] VITALS: Ht 165.1 cm; Wt 109.8 kg
[2018-09-22] VITALS (8 sets, daily range): BP systolic 70–140; BP diastolic 59–90
[2018-09-22] MEDS ORDERED: HEParin (CATH LAB) 1,000 ML IV ONE (12:34)
[2018-09-22] MEDS ORDERED: NS IV 1000 ML 1,000 ML ONE (12:34)
[2018-09-22] MEDS ORDERED: NS IV 1000 ML 1,000 ML IV SCH ×2 (12:41→15:52)
[2018-09-22] MEDS ORDERED: BACITRACIN INJECTION 50,000 UNIT, SODIUM CHLORIDE 0.9% IRRIGATIO 500 ML IR ONE ×2 (12:45)
[2018-09-22] MEDS ORDERED: ceFAZolin INJECTION 1,000 MG ONE (12:45)
[2018-09-22] MEDS ORDERED: LIDOCAINE 1% INJ 20 ML 20 ML VIAL ONE (12:45)
[2018-09-22 13:05] LABS: HEMOGLOBIN 11.7 G/DL (11.5-16.0); RED CELL DISTRIBUTION WIDTH 13.7 % (10.0-14.5)
[2018-09-22 13:19] LABS: PROTHROMBIN TIME PATIENT 13.3 SEC (12.2-14.7)
[2018-09-22 13:27] LABS: ALBUMIN 4.1 GM/DL (3.2-4.5); BILIRUBIN,TOTAL 0.7 MG/DL (0.1-1.0); CALCIUM 9.4 MG/DL (8.5-10.1); CREATININE SERUM 1.3 MG/DL (0.60-1.30); TOTAL PROTEIN 7.5 GM/DL (6.4-8.2)
[2018-09-22] MEDS ORDERED: BACITRACIN 50000 UNITS/500 ML NS IR ONE ×2 (13:30)
[2018-09-22] MEDS ORDERED: METO50TA15 PO (13:42)
[2018-09-22] MEDS ORDERED: CETI10TA17 PO (13:42)
[2018-09-22] MEDS ORDERED: APIX5TAB PO (13:42)
[2018-09-22] MEDS ORDERED: ERGO50006 PO (13:42)
[2018-09-22] MEDS ORDERED: FLUT15.88 NS (13:42)
[2018-09-22] MEDS ORDERED: RT-ALBUINH INH (13:42)
[2018-09-22] MEDS ORDERED: IRON PO (13:42)
[2018-09-22] MEDS ORDERED: POTA10CA43 PO (13:42)
[2018-09-22] MEDS ORDERED: AMIO200T4 PO (13:42)
[2018-09-22] MEDS ORDERED: CHOL10007 PO (13:42)
[2018-09-22] MEDS ORDERED: FLUT1DIS26 IH (13:42)
[2018-09-22] MEDS ORDERED: GLUC100016 PO (13:42)
[2018-09-22] MEDS ORDERED: LISI10TA2 PO (13:42)
[2018-09-22] MEDS ORDERED: MIDAZOLAM 5 MG/5 ML (VERSED) VIAL ONE ×2 (14:07→15:14)
[2018-09-22] MEDS ORDERED: fentaNYL INJECTION 100 MCG/2 ML AMP ONE ×2 (14:07→15:17)
[2018-09-22] MEDS ORDERED: NEO/POLY/BAC (NEOSPORIN) OINT 15 GM TUBE ONE (15:37)
--- NOTE | 2018-09-22 15:52 | Cardiac Procedure Note-CS/ASA ---
Pre-Procedure Note Pre-Op Procedure Note H&P Reviewed The H&P was reviewed, patient examined and no changes noted. Date H&P Reviewed: September 22, 2018 Time H&P Reviewed: 14:45 Conscious Sedation Pre-Proced Time 14:45 ASA Score 3 For ASA 3 and 4: Consider anesthesia and medical clearance. Also, for patients with a history of failed moderate sedation consider anesthesia. Airway Lungs Heart ASA score ASA 1: a normal healthy patient ASA 2: a patient with a mild systemic disease (mid diabetes, controlled hypertension, obesity ASA 3: a patient with a severe systemic disease that limits activity (angina , COPD, prior Myocardial infarction) ASA 4: a patient with an incapacitating disease that is a constant threat to life (CHF, renal failure) ASA 5: a moribund patient not expected to survive 24 hrs. (ruptured aneurysm) ASA 6: a declared brain- patient whose organs are being harvested. For emergent operations, add the letter E after the classification Mallampati Classification Grade 3 Sedation Plan Analgesia, Amnesia, Plan communicated to team members, Discussed options with patient/fam, Discussed risks with patient/fam The patient is an appropriate candidate to undergo the planned procedure, sedation, and anesthesia. The patient immediately re-assessed prior to indication. HENRY SMITH MD FACP [facility] September 22, 2018 15:52
[2018-09-22] MEDS ORDERED: PATIENT MAY USE OWN MEDS, ALL PO SCH (16:00)
[2018-09-22] MEDS ORDERED: CEFU500T63 PO (16:03)
--- NOTE | 2018-09-22 16:03 | Discharge Inst-Post Device ---
Discharge Inst-Post Device Follow up/Plan F/u at Dr Wilson's for wound check on 09/25/18 Heart Healthy Diet Activity as tolerated. Leave dressing on until follow up at the office. HENRY WILSON MD FACP [facility] September 22, 2018 16:03
[2018-09-22] MEDS ORDERED: ACET325C5 PO (16:04)
[2018-09-22] MEDS ORDERED: CATHETER FLUSH 10 ML SYR IV PRN (17:15)
--- NOTE | 2018-09-22 22:34 | OPERATIVE REPORT ---
DATE OF SERVICE: 09/22/2018 PREOPERATIVE DIAGNOSIS: ICD at elective replacement indicator. POSTOPERATIVE DIAGNOSIS: ICD at elective replacement indicator. PROCEDURE: ICD pulse generator change. INDICATIONS: The patient is a 68-year-old lady with nonischemic cardiomyopathy who has the dual chamber pacemaker defibrillator in place, which has reached elective replacement indicator. Informed consent was obtained for the pulse generator change. DESCRIPTION OF PROCEDURE: She was brought to the cardiac catheterization laboratory in a fasting state. The left prepectoral area, the site of device implant, was prepared and draped in the usual sterile fashion. The site was marked under fluoroscopy. A 1% lidocaine was used for anesthesia. Sharp and blunt dissection was used to open the pocket and the device was removed from the pocket and detached from the leads. The pocket was thoroughly irrigated with an antibiotic solution. Good hemostasis was assured. The leads were attached to a new device and the leads and device were placed in the pocket and the pocket was closed in 2 layers using 3.0 Vicryl. The device removed is Fortify device with a Fortify St. [employer]én device with serial #[id number]. The device implanted is Fortify (Mooney) device with serial #[id number]. The leads remained unchanged. The lead sensing is at 1.6 millivolts with an impedance of 360 ohms. Threshold could not be carried out because the patient was in atrial fibrillation. Right ventricle lead sensed at 11.4 millivolts. Right ventricular lead impedance is 690 ohms. Ventricular capture threshold was 0.75 volts at 0.5 milliseconds. HV lead impedance is 46 ohms. The pacemaker is in the DDDR mode (70/120). Job ID: [id number] DocumentID: [id number] Dictated Date: 09/22/2018 16:12:08 Drug Coordinator Date: 09/22/2018 22:33:40 Dictated By: HENRY SMITH MD, MA, FACP, FACC,
[2018-09-23] MEDS ORDERED: FURO40TA4 PO (14:41)
[2018-09-23] MEDS ORDERED: POTA10TA10 PO (14:41)
[2018-09-23] MEDS ORDERED: FLUT16SP22 NS (14:41)
[2018-09-23] MEDS ORDERED: ALBU18HF2 INH (14:41)
[2018-09-23] MEDS ORDERED: FERR-84 PO (14:41)
[2018-09-23] MEDS ORDERED: ACET325T38 PO (14:59)
== END 2018-09-22 18:55 | disposition home or self-care (01) ==
LOC: CATH 12:25 → ICU 16:29 → CATH 18:55
PROVIDERS: ATTEND Internal Medicine Cardiovascular Disease
DX: Z95.810 Presence of automatic (implantable) cardiac defibrillator (principal); I50.42 Chronic combined systolic (congestive) and diastolic (congestive) heart failure; I42.9 Cardiomyopathy, unspecified; I27.20 Pulmonary hypertension, unspecified; N18.3 Chronic kidney disease, stage 3 (moderate); I48.92 Unspecified atrial flutter; G47.33 Obstructive sleep apnea (adult) (pediatric); J45.909 Unspecified asthma, uncomplicated; I44.7 Left bundle-branch block, unspecified; Z79.01 Long term (current) use of anticoagulants; Z79.899 Other long term (current) drug therapy
CPT/HCPCS: 33263; 36415; 80053; 80061; 85027; 85610; 85730; 87081

== ENCOUNTER 2018-09-23 11:15 | Observation (INO) | payer OTHER, MEDICARE ==
[~2018-09-23] VITALS: Ht 165.1 cm; Wt 97.1 kg
[~2018-09-23 11:15] MED LIST changes: +ACET325C5 PO; +AMIO200T4 PO; +APIX5TAB PO; +CEFU500T63 PO; +CETI10TA17 PO; +CHOL10007 PO; +ERGO50006 PO; +FLUT15.88 NS; +FLUT1DIS26 IH; +GLUC100016 PO; +IRON PO; +LISI10TA2 PO; +METO50TA15 PO; +POTA10CA43 PO; +RT-ALBUINH INH
[2018-09-23] MEDS ORDERED: RT-ALBUTEROL SULF 2.5 MG/3 ML PRE-MIX VIAL INH STA (11:27)
[2018-09-23] MEDS ORDERED: RT-ALBUTEROL/IPRATROPIUM 3 ML (DUONEB) VIAL INH ONE (11:30)
[2018-09-23 11:36] LABS: BASOPHILS % (AUTO) 0 % (0-10); EOSINOPHILS % (AUTO) 1 % (0-10); HEMATOCRIT 35 % (35-52); HEMOGLOBIN 11.4 G/DL (11.5-16.0); LYMPHOCYTES # (AUTO) 0.5 X 10^3 (1.0-4.0); LYMPHOCYTES % (AUTO) 6 % (12-44); MEAN CORPUSCULAR HEMOGLOBIN 30 PG (25-34); MEAN CORPUSCULAR HGB CONC 32 G/DL (32-36); MEAN CORPUSCULAR VOLUME 93 FL (80-99); MEAN PLATELET VOLUME 10.6 FL (7.4-10.4); MONOCYTES # (AUTO) 0.7 X 10^3 (0.0-1.0); MONOCYTES % (AUTO) 8 % (0-12); NEUTROPHILS # (AUTO) 7.3 X 10^3 (1.8-7.8); NEUTROPHILS % (AUTO) 85 % (42-75); PLATELET COUNT 155 10^3/uL (130-400); WHITE BLOOD COUNT 8.5 10^3/uL (4.3-11.0)
[2018-09-23 11:56] LABS: ALANINE AMINOTRANSFERASE 18 U/L (0-55); ALBUMIN 4.1 GM/DL (3.2-4.5); ALKALINE PHOSPHATASE 67 U/L (40-136); BILIRUBIN,TOTAL 0.9 MG/DL (0.1-1.0); BUN/CREATININE RATIO 17; CALCIUM 9.8 MG/DL (8.5-10.1); CARBON DIOXIDE 21 MMOL/L (21-32); CHLORIDE 107 MMOL/L (98-107); CREATININE SERUM 1.27 MG/DL (0.60-1.30); GFR ESTIMATED 51; GLUCOSE 108 MG/DL (70-105); MAGNESIUM 2.3 MG/DL (1.8-2.4); POTASSIUM 4.4 MMOL/L (3.6-5.0); SODIUM 141 MMOL/L (135-145); TOTAL PROTEIN 7.7 GM/DL (6.4-8.2)
--- NOTE | 2018-09-23 11:58 | NUR ---
RT IN ROOM AT THIS TIME.
[2018-09-23 12:04] LABS: LYMPHOCYTES % (MANUAL) 7 %; MONOCYTES % (MANUAL) 8 %; NEUTROPHILS % (MANUAL) 85 %; RBC MORPH NORMAL
--- NOTE | 2018-09-23 12:10 | Diagnostic Imaging Report ---
INDICATION: Shortness of air. COMPARISON: 12/10/2017 FINDINGS: Single frontal radiographic view of the chest was obtained and demonstrates marked cardiomegaly and moderate pulmonary vascular congestion. There is also mild diffuse prominence of the pulmonary interstitium. There is an alveolar opacity within the right base as well. These findings have progressed when compared to 12/10/2017. There is no large effusion or pneumothorax on either side. Left-sided AICD is noted. Bony structures show no gross acute abnormalities. IMPRESSION: 1. Marked cardiomegaly with increasing pulmonary vascular congestion and interval development of interstitial pulmonary edema. 2. Probable atelectasis in the right base, although focal area of infiltrate or alveolar edema is not entirely excluded. Dictated by: Dictated on workstation # [id number]
[2018-09-23] MEDS ORDERED: FUROSEMIDE 40 MG/4 ML INJ (LASIX) IV STA (12:14)
--- NOTE | 2018-09-23 12:55 | NUR ---
CESAR FROM PHARMACY NOTIFIED OF MED REC NEEDING DONE.
--- NOTE | 2018-09-23 13:09 | ED Respiratory ---
General Chief Complaint: Respiratory Problems Stated Complaint: TROUBLE BREATHING Nursing Triage Note: SENT OVER FROM DR MADRIGAL OFFICE WITH INCREASED SOA FOR LAST SEVERAL DAYS. Source: patient Exam Limitations: no limitations History of Present Illness Date Seen by Provider: September 23, 2018 Time Seen by Provider: 11:22 Initial Comments Here from pulmonology clinic where she was noted to have increasing shortness of air over the last few days. She has only a few word sentences without having to take a breath currently and this is not her norm. She does have both COPD and CHF. She had procedure done yesterday changing pacemaker leads or pacemaker with Dr. Wilson. Denies fever or chills. Denies nausea or vomiting. Does have some increased swelling of the legs. Timing/Duration: getting worse, other (few days) Severity: moderate Prior Episodes/Possible Cause: occasional episodes Modifying Factors: Worse With Activity; Improves With Oxygen, Improves With Rest Associated Symptoms: No chest pain/soreness, No cough, No fever/chills, No nasal congestion; shortness of breath; No wheezing Allergies and Home Medications Allergies Coded Allergies: No Known Drug Allergies (Unverified , 11/03/11) Home Medications Acetaminophen 325 Mg Capsule, 650 MG PO Q6H PRN for PAIN-MILD TO MODERATE Prescribed by: HENRY WILSON on 09/22/18 1604 Albuterol Sulfate 1 Puff Puff, 2 PUFF INH QID PRN for SHORTNESS OF BREATH, ( Reported) 1 PUFF = 90 MCG Amiodarone HCl 200 Mg Tablet, 200 MG PO DAILY, (Reported) Apixaban 5 Mg Tablet, 5 MG PO BID, (Reported) Cefuroxime Axetil 500 Mg Tablet, 500 MG PO BID Prescribed by: HENRY WILSON on 09/22/18 1603 Cetirizine HCl 10 Mg Tablet, 10 MG PO HS, (Reported) Cholecalciferol (Vitamin D3) 1,000 Unit Capsule, 1,000 UNIT PO DAILY, (Reported) Ergocalciferol (Vitamin D2) 50,000 Unit Capsule, 50,000 UNIT PO WEEK, (Reported) Fluticasone Propionate 15.8 Ml [place].susp, 1 SPRAY NS DAILY, (Reported) Fluticasone/Salmeterol 1 Each Blst.w.dev, 1 EACH IH BID, (Reported) Furosemide 40 Mg Tablet, 80 MG PO DAILY, (Reported) Glucosamine Sulfate 2Kcl 1,000 Mg Tablet, 1,000 MG PO DAILY, (Reported) Lisinopril 10 Mg Tablet, 10 MG PO DAILY, (Reported) Metoprolol Tartrate 50 Mg Tablet, 50 MG PO BID, (Reported) Ondansetron 8 Mg Tab.rapdis, 8 MG PO Q8H PRN for NAUSEA/VOMITING-1ST LINE Prescribed by: NELSON LOVE on 12/10/17 1540 Potassium Chloride 10 Meq Capsule.er, 10 MEQ PO DAILY, (Reported) [Iron] , 65 MG PO BID, (Reported) Patient Home Medication List Home Medication List Reviewed: Yes Review of Systems Review of Systems Constitutional: see HPI; No chills, No fever EENTM: no symptoms reported Respiratory: No cough; short of breath; No wheezing Cardiovascular: No chest pain; edema; No palpitations Gastrointestinal: No abdominal pain, No nausea, No vomiting Genitourinary: no symptoms reported Musculoskeletal: no symptoms reported Skin: no symptoms reported All Other Systems Reviewed Negative Unless Noted: Yes Past Lnikklv-Pbomhx-Uiypcn Hx Past Med/Social Hx: Reviewed Nursing Past Med/Soc Hx Patient Social History Alcohol Use: Denies Use Recreational Drug Use: No Smoking Status: Never a Smoker Recent Foreign Travel: No Contact w/Someone Who Travel: No Recent Infectious Disease Expo: No Recent Hopitalizations: No Immunizations Up To Date Date of Influenza Vaccine: Feb 06, 2012 Past Medical History Surgeries: Yes (Appy and hysterectomy ') Appendectomy, Defibrillator, Hysterectomy Respiratory: Yes Sleep Apnea, COPD Currently Using CPAP: Yes (WITH O2) Cardiac: Yes (CHF WITH RECENT MULTIPLE SHOCKS FROM DEFIB) Atrial Fibrillation Neurological: No Reproductive Disorders: Yes Sexually Transmitted Disease: No Genitourinary: No Renal Failure Gastrointestinal: No Musculoskeletal: No Endocrine: No HEENT: No Cancer: No Psychosocial: No Integumentary: No Blood Disorders: No Adverse Reaction/Blood Tranf: No Family Medical History Reviewed Nursing Family Hx No Pertinent Family Hx Physical Exam Vital Signs - First Documented Capillary Refill : Less Than 3 Seconds Height: 5'2.00" Weight: 248lbs. 0.0oz. 112.327471zy; 40.3 BMI Method:Stated General Appearance: WD/WN, mild distress HEENT: PERRL/EOMI, pharynx normal Neck: full range of motion, supple Respiratory: decreased breath sounds, crackles (few basilar) Cardiovascular: regular rate, rhythm, no murmur Gastrointestinal: non tender, soft Extremities: non-tender, normal inspection Neurologic/Psychiatric: alert, oriented x 3 Skin: normal color, warm/dry Progress/Results/Core Measures Suspected Sepsis Recent Fever Within 48 Hours: No Infection Criteria Present: Suspected New Infection New/Unexplained Altered Menta: No Sepsis Screen: No Definite Risk SIRS Temperature:98.9 Pulse: 70 Respiratory Rate: 16 Laboratory Tests 09/23/18 11:24: White Blood Count 8.5 Blood Pressure 117 /91 Mean: 100 Laboratory Tests 09/23/18 11:24: Creatinine 1.27, Platelet Count 155, Total Bilirubin 0.9 Results/Orders Lab Results Laboratory Tests Test 09/23/18 11:24 Range/Units White Blood Count 8.5 4.3-11.0 10^3/uL Red Blood Count 3.79 L 4.35-5.85 10^6/uL Hemoglobin 11.4 L 11.5-16.0 G/DL Hematocrit 35 35-52 % Mean Corpuscular Volume 93 80-99 FL Mean Corpuscular Hemoglobin 30 25-34 PG Mean Corpuscular Hemoglobin Concent 32 32-36 G/DL Red Cell Distribution Width 14.0 10.0-14.5 % Platelet Count 155 130-400 10^3/uL Mean Platelet Volume 10.6 H 7.4-10.4 FL Neutrophils (%) (Auto) 85 H 42-75 % Lymphocytes (%) (Auto) 6 L 12-44 % Monocytes (%) (Auto) 8 0-12 % Eosinophils (%) (Auto) 1 0-10 % Basophils (%) (Auto) 0 0-10 % Neutrophils # (Auto) 7.3 1.8-7.8 X 10^3 Lymphocytes # (Auto) 0.5 L 1.0-4.0 X 10^3 Monocytes # (Auto) 0.7 0.0-1.0 X 10^3 Eosinophils # (Auto) 0.0 0.0-0.3 10^3/uL Basophils # (Auto) 0.0 0.0-0.1 10^3/uL Neutrophils % (Manual) 85 % Lymphocytes % (Manual) 7 % Monocytes % (Manual) 8 % Blood Morphology Comment NORMAL Sodium Level 141 135-145 MMOL/L Potassium Level 4.4 3.6-5.0 MMOL/L Chloride Level 107 98-107 MMOL/L Carbon Dioxide Level 21 21-32 MMOL/L Anion Gap 13 5-14 MMOL/L Blood Urea Nitrogen 21 H 7-18 MG/DL Creatinine 1.27 0.60-1.30 MG/DL Estimat Glomerular Filtration Rate 51 BUN/Creatinine Ratio 17 Glucose Level 108 H 70-105 MG/DL Calcium Level 9.8 8.5-10.1 MG/DL Corrected Calcium 9.7 8.5-10.1 MG/DL Magnesium Level 2.3 1.8-2.4 MG/DL Total Bilirubin 0.9 0.1-1.0 MG/DL Aspartate Amino Transf (AST/SGOT) 20 5-34 U/L Alanine Aminotransferase (ALT/SGPT) 18 0-55 U/L Alkaline Phosphatase 67 40-136 U/L Troponin I < 0.028 <0.028 NG/ML C-Reactive Protein High Sensitivity 3.25 H 0.00-0.50 MG/DL B-Type Natriuretic Peptide 1004.0 H <100.0 PG/ML Total Protein 7.7 6.4-8.2 GM/DL Albumin 4.1 3.2-4.5 GM/DL My Orders Orders - ANÍBAL CARDOZA MD BNP (09/23/18 11:27) Cbc With Automated Diff (09/23/18 11:27) Comprehensive Metabolic Panel (09/23/18 11:27) Hs C Reactive Protein (09/23/18 11:27) Magnesium (09/23/18 11:27) Troponin I (09/23/18 11:27) Ekg Tracing (09/23/18 11:27) O2 (09/23/18 11:27) Chest 1 View, Ap/Pa Only (09/23/18 11:27) Albuterol Pre-Mix Nebs (Rt) (Proventil (09/23/18 11:27) Albuterol/Ipra Inhalation Soln (Duoneb I (09/23/18 11:30) Svn Small Volume Nebulizer (09/23/18 11:27) Svn Small Volume Nebulizer (09/23/18 11:27) Manual Differential (09/23/18 11:24) Furosemide Injection (Lasix Injection) (09/23/18 12:14) Medications Given in ED Current Medications Medications Dose Ordered Sig/Jennifer Route Start Time Stop Time Status Last Admin Dose Admin Albuterol/ Ipratropium 3 ml ONCE ONCE INH 09/23/18 11:30 09/23/18 11:31 DC 09/23/18 11:58 3 ML Vital Signs/I&O 09/23/18 09/23/18 09/23/18 09/23/18 11:17 11:17 11:58 12:03 Temp 98.9 Pulse 70 Resp 16 B/P (MAP) 117/91 (100) Pulse Ox 96 99 99 O2 Delivery Nasal Cannula Nasal Cannula Nasal Cannula Nasal Cannula O2 Flow Rate 3.00 3.00 2.00 2.00 Capillary Refill : Less Than 3 Seconds Blood Pressure Mean: 100 Progress Note : Progress Note Seen and evaluated. IV, labs, EKG and chest x-ray ordered. Albuterol and DuoNeb treatment ordered. Monitor patient. Albuterol DuoNeb treatment did not change her respiratory concerns. Chest x-ray does show significant pulmonary vascular congestion. Lasix 40 mg IV ordered. I did discuss the case with Dr. Wilson at 1232 and he will accept the patient for admission especially considering she just had a pacemaker changed yesterday. I discussed this with the patient and family who agree. We will continue Lasix inpatient. Admit, inpatient status. ECG Initial ECG Impression Date: September 23, 2018 Initial ECG Impression Time: 11:32 Initial ECG Rate: 70 Comment Atrial paced complexes with normal but leftward axis. Similar but slower than previous to 12/10/17. No evidence of ST elevation AR. Interpreted by me. Diagnostic Imaging Diagonstic Imaging: Xray Plain Films/CT/US/NM/MRI: chest Comments [facility] [place], [place] NAME: MARQUIS SHEEHAN [facility] REC#: [id number] PT STATUS: REG ER : 1950 PHYSICIAN: ANÍBAL CARDOZA MD ADMIT DATE: 09/23/18/ER Draft Date of Exam:09/23/18 CHEST 1 VIEW, AP/PA ONLY INDICATION: Shortness of air. COMPARISON: 12/10/2017 FINDINGS: Single frontal radiographic view of the chest was obtained and demonstrates marked cardiomegaly and moderate pulmonary vascular congestion. There is also mild diffuse prominence of the pulmonary interstitium. There is an alveolar opacity within the right base as well. These findings have progressed when compared to 12/10/2017. There is no large effusion or pneumothorax on either side. Left-sided AICD is noted. Bony structures show no gross acute abnormalities. IMPRESSION: 1. Marked cardiomegaly with increasing pulmonary vascular congestion and interval development of interstitial pulmonary edema. 2. Probable atelectasis in the right base, although focal area of infiltrate or alveolar edema is not entirely excluded. Dictated on workstation # [id number] Dict: 09/23/18 1156 Trans: 09/23/18 1209 [facility] [id number] Interpreted by: CHEIKH GALDAMEZ MD Electronically signed by: Departure Communication (Admissions) Time/Spoke to Admitting Phy: 12:32 Impression Primary Impression: CHF (congestive heart failure) Qualified Codes: I50.9 - Heart failure, unspecified Disposition: ADMITTED INPATIENT Condition: Stable Admissions Decision to Admit Reason: Admit from ER (General) Decision to Admit/Date: September 23, 2018 Time/Decision to Admit Time: 12:32 Departure-Patient Inst. Referrals: PILY EDEN MD (PCP) Primary Care Physician ANÍBAL CARDOZA MD September 23, 2018 13:09
--- NOTE | 2018-09-23 13:35 | NUR ---
REPORT GIVEN TO TAMMY WHO ASKS ME TO WAIT 20 MINS TO BRING PT UP TO 4TH.
[2018-09-23 14:29] VITALS: BP 134/63
--- NOTE | 2018-09-23 14:30 | NUR ---
MARQUIS SHEEHAN admitted to room 404-1, with an admitting diagnosis of CHF EXACERBATION, on 09/23/18 from ER via , accompanied by .MARQUIS SHEEHAN introduced to surroundings, call light, bed controls, phone, TV, temperature control, lights, meal times, smoking policy, visitor policy, side rail policy, bathrooms and showers. Patient Rights given to patient in the handbook.MARQUIS SHEEHAN verbalizes understanding that [facility] is not responsible for the loss or damage to any personal effects or valuables that are kept in the patients posession during their hospitalization. The following Patient Care Plans were discussed with the : Discharge Planning, IMPAIRED GAS EXCHANGE,INEFFECTIVE BREATHING PATTERN, and FLUID VOLUME EXCESS. MARQUIS SHEEHAN verbalizes understanding of Interdisciplinary Patient Education.
[2018-09-23] MEDS ORDERED: FLUT16SP22 NS (14:41)
[2018-09-23] MEDS ORDERED: ALBU18HF2 INH (14:41)
[2018-09-23] MEDS ORDERED: FERR-84 PO (14:41)
[2018-09-23] MEDS ORDERED: FURO40TA4 PO (14:41)
[2018-09-23] MEDS ORDERED: POTA10TA10 PO (14:41)
--- NOTE | 2018-09-23 14:44 | Cardiology History & Physical ---
HPI-Cardiology Cardiology H&P Date of Admission 09-23-18 Primary Care Physician Filippo Levin MD Attending Physician Suzette Smith MD Facp Fac Ccds Consulting Physician FAITH Ms. Hurley is a 68 year old female admitted to 403 from the ED with increasing dyspnea over the course of the last few days, which became progressively worse overnight. She underwent pulse generator change out yesterday d/t device reaching CASH. She reports she has not taken her home medications in 2 day. She reports early this morning her SOB progressed to the point she could not lie in bed even with her CPAP on so she went to the recliner where she was still having difficulty breathing. She reports the SOB has progressed to the point she could not walk across a room with losing her air. She had an appt with Dr. Rose of pulmonary services this morning and they sent her to the ED. She reports she has chest tightness with exertion. No c/o CP, palpitations, syncope or near syncope. No c/o LE swelling. Occ non- productive cough. No c/o fever or chills. She currently reports she is breathing better, but continues to have dyspnea. Review of Systems-Cardiology Review of Systems Constitutional: No chills, No fever Eyes: No vision change Ears/Nose/Throat: No epistaxis, No recent hearing loss Respiratory: As described under HPI Cardiovascular: As described under HPI Gastrointestinal: No constipation, No diarrhea, No nausea, No vomiting Genitourinary: No dysuria, No hematuria Musculoskeletal: muscle pain (back pain) Skin: No dryness, No rash; other (L ACW Drsg in place from pulse generator change out on 09-22-18) Psychiatric/Neurological: No depression, No seizure, No focal weakness, No syncope Hematologic: No bleeding abnormalities All Other Systems Reviewed Negative Unless Noted: Yes WRN-Asfxun-Mrbugi Hx Patient Social History Alcohol Use: Denies Use Recreational Drug Use: No Smoking Status: Never a Smoker Recent Foreign Travel: No Recent Infectious Disease Expo: No Immunizations Up To Date Date of Influenza Vaccine: Feb 06, 2012 Past Medical History PMH As described under Assessment. Allergies and Home Medications Allergies Coded Allergies: No Known Drug Allergies (Unverified , 11/03/11) Home Medications Acetaminophen 325 Mg Tablet, 650 MG PO Q6H PRN for PAIN-MILD, (Reported) Albuterol Sulfate 18 Gm Hfa.aer.ad, 2 PUFF INH QID PRN for SHORTNESS OF BREATH, (Reported) Amiodarone HCl 200 Mg Tablet, 200 MG PO DAILY, (Reported) Apixaban 5 Mg Tablet, 5 MG PO BID, (Reported) Cefuroxime Axetil 500 Mg Tablet, 500 MG PO BID Prescribed by: SUZETTE SMITH on 09/22/18 1603 Cetirizine HCl 10 Mg Tablet, 10 MG PO HS, (Reported) Cholecalciferol (Vitamin D3) 1,000 Unit Capsule, 1,000 UNIT PO DAILY, (Reported) Ergocalciferol (Vitamin D2) 50,000 Unit Capsule, 50,000 UNIT PO Th, (Reported) Ferrous Sulfate 325 Mg Tablet, 325 MG PO BID, (Reported) Fluticasone Propionate 16 Gm [place].susp, 2 SPRAYS NS HS, (Reported) Fluticasone/Salmeterol 1 Each Blst.w.dev, 1 PUFF IH BID, (Reported) Furosemide 40 Mg Tablet, 80 MG PO DAILY, (Reported) TAKES 2 (40MG) TABLETS Glucosamine Sulfate 2Kcl 1,000 Mg Tablet, 1,000 MG PO DAILY, (Reported) Lisinopril 10 Mg Tablet, 10 MG PO DAILY, (Reported) Metoprolol Tartrate 50 Mg Tablet, 50 MG PO BID, (Reported) Potassium Chloride 10 Meq Tablet.er, 10 MEQ PO DAILY, (Reported) Patient Home Medication List Home Medication List Reviewed: Yes Physical Exam-Cardiology Physical Exam Vital Signs/I&O 09/23/18 09/24/18 09/24/18 09/24/18 22:23 00:02 01:00 03:54 Temp 99.1 98.6 Pulse 76 71 69 68 Resp 18 18 B/P (MAP) 140/68 (92) 120/57 (78) 125/79 (94) Pulse Ox 97 96 09/24/18 09/24/18 04:03 07:00 Pulse 69 Pulse Ox 95 O2 Delivery Nasal Cannula O2 Flow Rate 3.00 09/24/18 00:00 Intake Total 200 ml Output Total 700 ml Balance -500 ml Capillary Refill : Less Than 3 Seconds Constitutional: AAO x 3, well-developed, well-nourished HEENT: PERRL, hearing is well preserved, oral hygience is good Neck: No carotid bruit; carotid pulses are 2 + bilaterally Respiratory: No accessory muscle use, No respiratory distress; chest expansion is symmetric, chest is bilaterally symmetric, rhonchi (scattered), other ( diminished bases bilat) Cardiovascular: regular rate-rhythm; No JVD; S1 and S2, systolic murmur Gastrointestinal: No tender; soft, round, audible bowel sounds Rectal: deferred Extremities: no lower extremity edema bilateral Neurologic/Psychiatric: grossly intact, power is 5/5 both on sides Skin: No rash, No ulcerations; other (Dressing to L ACW; mild bruising; no redness or swelling noted) Data Review Labs Laboratory Tests 09/23/18 11:24: White Blood Count 8.5, Red Blood Count 3.79L, Hemoglobin 11.4L, Hematocrit 35, Mean Corpuscular Volume 93, Mean Corpuscular Hemoglobin 30, Mean Corpuscular Hemoglobin Concent 32, Red Cell Distribution Width 14.0, Platelet Count 155, Mean Platelet Volume 10.6H, Neutrophils (%) (Auto) 85H, Lymphocytes (%) (Auto) 6L, Monocytes (%) (Auto) 8, Eosinophils (%) (Auto) 1, Basophils (%) (Auto) 0, Neutrophils # (Auto) 7.3, Lymphocytes # (Auto) 0.5L, Monocytes # (Auto) 0.7, Eosinophils # (Auto) 0.0, Basophils # (Auto) 0.0, Neutrophils % (Manual) 85, Lymphocytes % (Manual) 7, Monocytes % (Manual) 8, Blood Morphology Comment NORMAL, Sodium Level 141, Potassium Level 4.4, Chloride Level 107, Carbon Dioxide Level 21, Anion Gap 13, Blood Urea Nitrogen 21H, Creatinine 1.27, Estimat Glomerular Filtration Rate 51, BUN/Creatinine Ratio 17, Glucose Level 108H, Calcium Level 9.8, Corrected Calcium 9.7, Magnesium Level 2.3, Total Bilirubin 0.9, Aspartate Amino Transf (AST/SGOT) 20, Alanine Aminotransferase ( ALT/SGPT) 18, Alkaline Phosphatase 67, Troponin I < 0.028, C-Reactive Protein High Sensitivity 3.25H, B-Type Natriuretic Peptide 1004.0H, Total Protein 7.7, Albumin 4.1 09/24/18 05:45: White Blood Count 5.8, Red Blood Count 3.24L, Hemoglobin 9.7L, Hematocrit 30L, Mean Corpuscular Volume 93, Mean Corpuscular Hemoglobin 30, Mean Corpuscular Hemoglobin Concent 32, Red Cell Distribution Width 13.6, Platelet Count 126L, Mean Platelet Volume 10.9H, Neutrophils (%) (Auto) 80H, Lymphocytes (%) (Auto) 8L, Monocytes (%) (Auto) 12, Eosinophils (%) (Auto) 1, Basophils (%) (Auto) 0, Neutrophils # (Auto) 4.6, Lymphocytes # (Auto) 0.5L, Monocytes # (Auto) 0.7, Eosinophils # (Auto) 0.0, Basophils # (Auto) 0.0, Sodium Level 139, Potassium Level 3.6, Chloride Level 105, Carbon Dioxide Level 22, Anion Gap 12, Blood Urea Nitrogen 23H, Creatinine 1.38H, Estimat Glomerular Filtration Rate 46, BUN/ Creatinine Ratio 17, Glucose Level 108H, Calcium Level 8.8, Corrected Calcium 9.3, Total Bilirubin 1.2H, Aspartate Amino Transf (AST/SGOT) 13, Alanine Aminotransferase (ALT/SGPT) 15, Alkaline Phosphatase 49, Total Protein 6.3L, Albumin 3.4 Radiology NAME: MARQUIS HURLEY [facility] REC#: [id number] PT STATUS: ADM IN : 1950 PHYSICIAN: ANÍBAL CARDOZA MD ADMIT DATE: 09/23/18 Signed Date of Exam: 09/23/18 CHEST 1 VIEW, AP/PA ONLY INDICATION: Shortness of air. COMPARISON: 12/10/2017 FINDINGS: Single frontal radiographic view of the chest was obtained and demonstrates marked cardiomegaly and moderate pulmonary vascular congestion. There is also mild diffuse prominence of the pulmonary interstitium. There is an alveolar opacity within the right base as well. These findings have progressed when compared to 12/10/2017. There is no large effusion or pneumothorax on either side. Left-sided AICD is noted. Bony structures show no gross acute abnormalities. IMPRESSION: 1. Marked cardiomegaly with increasing pulmonary vascular congestion and interval development of interstitial pulmonary edema. 2. Probable atelectasis in the right base, although focal area of infiltrate or alveolar edema is not entirely excluded. Dictated by: Dictated on workstation # [id number] Dict: 09/23/18 1156 Trans: 09/23/18 1400 Interpreted by: CHEIKH GALDAMEZ MD Electronically signed by: CHEIKH GALADMEZ MD 09/23/18 1400 A/P-Cardiology Assessment/Admission Diagnosis Acute on chronic diastolic CHF Dual chamber ICD, device at CASH on interrogation of 09/21/18. S/P pulse generator change out on 09-22-18. Nonischemic cardiomyopathy with an ejection fraction between 30 and 35%. Most recent echocardiogram of May 2017 shows LVEF 55-60%, grade I diastolic dysfunction, trivial MR and TR. Cardiac cath of October [address] Issa showed angiographically normal coronaries Suspected sarcoidosis, followed by Dr Rose. 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 Rose rn circulating Paroxysmal atrial flutter with an intermittent rapid ventricular response. In July 2012, she received one shock ICD for atrial flutter but has not has not received any since. She has not had any syncope or presyncope. Intolerance to digoxin (results in N/V and poor appetite) Chronic LBBB Diastolic dysfunction of the left ventricle on cardiac catheterization of October 2011. CKD, stage 3 - is being followed by Dr Huff Moderate pulmonary hypertension with pulmonary artery systolic pressure of approximately 60 mmHg on echocardiography of April 2012. Echo of January 2013 showed PASP to be 55mmHg. Echo of October 2013 showed PASP 50-55mmHg. Echo of 04/10/16 shows PASP 30-35 mmHg History of bronchial asthma Chronic anticoagulation with warfarin therapy for stroke prophylaxis. No evidence of MAXIM on sleep study by Dr. Jolly on 05-25-2013 Admission Status: Observation Discussion and Recomendations Acute on chronic diastolic CHF - treat with IV Lasix Continue home medications Monitor lab closely Continue tele Further recs will be based on her hospital course Continue post pulse generator change out oral Abx VIRGIL CORNEJO September 23, 2018 14:44
[2018-09-23] MEDS ORDERED: ACET325T38 PO (14:59)
[2018-09-23] MEDS ORDERED: CATHETER FLUSH 10 ML SYR IV PRN (15:00)
[2018-09-23 15:04] VITALS: BP 134/63
--- NOTE | 2018-09-23 15:05 | NUR ---
WENT OVER THE EXT MED HX WELL THE BOTTLES THE PATIENT BROUGHT IN WITH THEM. SHE VERIFIED HOW SHE TAKES EACH MEDICATION.
[2018-09-23] MEDS ORDERED: RT-ALBUTEROL/IPRATROPIUM 3 ML (DUONEB) VIAL ONE (15:13)
[2018-09-23] MEDS: RT-ALBUTEROL/IPRATROPIUM 3 ML (DUONEB) VIAL INH SCH ×2 (15:20→19:15)
[2018-09-23 15:27] VITALS: BP 161/77
[2018-09-23] MEDS ORDERED: ACETAMINOPHEN 325 MG TABLET PO PRN (15:30)
[2018-09-23] MEDS ORDERED: RT-ALBUTEROL SULF 2.5 MG/3 ML PRE-MIX VIAL INH PRN (15:30)
[2018-09-23] MEDS ORDERED: RT-ALBUTEROL/IPRATROPIUM 3 ML (DUONEB) VIAL INH PRN (15:45)
[2018-09-23] MEDS ORDERED: PANTOPRAZOLE 40 MG (PROTONIX) TAB PO ONE (15:45)
--- OUTSIDE RECORDS SUMMARY | 2018-09-23 16:27 | XMS REPORT | Continuity of Care Document ---
Author Organization Unknown Address Unknown Allergies Active Description Code Type Severity Reaction Onset Reported/Identified Relationship to Patient Clinical Status Yes NO KNOWN DRUG ALLERGIES UNKNOWN NO KNOWN DRUG ALLERG Yes No Known Drug Allergies [id number] Drug Allergy Unknown N/A 11/03/2011 Medications There is no data. Problems Date Dx Coded Attending Type Code Diagnosis Diagnosed By 05/08/2012 Ot 416.8 05/08/2012 Ot 425.4 05/08/2012 Ot 427.31 05/08/2012 Ot 427.81 05/08/2012 Ot 427.89 05/08/2012 Ot 428.0 05/08/2012 Ot 428.42 05/08/2012 Ot V58.61 05/08/2012 Ot V58.69 05/26/2013 VIRGIL CORNEJO Ot 327.23 OBSTRUCTIVE SLEEP APNEA (ADULT) (PEDIATR 05/26/2013 VIRGIL CORNEJO Ot 786.09 RESPIRATORY ABNORM NEC 06/13/2014 PHILLIP MADRIGAL DO Ot 135 06/13/2014 PHILLIP MADRIGAL DO Ot 278.00 06/13/2014 PHILLIP MADRIGAL DO Ot 416.8 06/13/2014 PHILLIP MADRIGAL DO Ot 425.4 06/13/2014 PHILLIP MADRIGAL DO Ot 428.43 06/13/2014 PHILLIP MADRIGAL DO Ot 493.90 06/13/2014 PHILLIP MADRIGAL DO Ot 786.09 06/13/2014 PHILLIP MADRIGAL DO Ot V57.89 06/13/2014 PHILLIP MADRIGAL DO Ot 135 06/13/2014 PHILLIP MADRIGAL DO Ot 278.00 06/13/2014 PHILLIP MADRIGAL DO Ot 416.8 06/13/2014 PHILLIP MADRIGAL DO Ot 425.4 06/13/2014 PHILLIP MADRIGAL DO Ot 428.43 06/13/2014 PHILLIP MADRIGAL DO Ot 493.90 06/13/2014 KAITLIN DO, PHILLIP M Ot 786.09 06/13/2014 KAITLIN DO, PHILLIP M Ot V57.89 06/16/2014 KAITLIN DO, PHILLIP M Ot 135 06/16/2014 KAITLIN DO, PHILLIP M Ot 278.00 06/16/2014 KAITLIN DO, PHILLIP M Ot 416.8 06/16/2014 KAITLIN DO, PHILLIP M Ot 425.4 06/16/2014 KAITLIN DO, PHILLIP M Ot 428.43 06/16/2014 KAITLIN DO, PHILLIP M Ot 493.90 06/16/2014 KAITLIN DO, PHILLIP M Ot 786.09 06/16/2014 KAITLIN DO, PHILLIP M Ot V57.89 06/16/2014 KAITLIN DO, PHILLIP M Ot 135 06/16/2014 KAITLIN DO, PHILLIP M Ot 278.00 06/16/2014 KAITLIN DO, PHILLIP M Ot 416.8 06/16/2014 KAITLIN DO, PHILLIP M Ot 425.4 06/16/2014 KAITLIN DO, PHILLIP M Ot 428.43 06/16/2014 KAITLIN DO, PHILLIP M Ot 493.90 06/16/2014 KAITLIN DO, PHILLIP M Ot 786.09 06/16/2014 KAITLIN DO, PHILLIP M Ot V57.89 06/16/2014 KAITLIN DO, PHILLIP M Ot 135 06/16/2014 KAITLIN DO, PHILLIP M Ot 278.00 06/16/2014 KAITLIN DO, PHILLIP M Ot 416.8 06/16/2014 KAITLIN DO, PHILLIP M Ot 425.4 06/16/2014 KAITLIN DO, PHILLIP M Ot 428.43 06/16/2014 KAITLIN DO, PHILLIP M Ot 493.90 06/16/2014 KAITLIN DO, PHILLIP M Ot 786.09 06/16/2014 KAITLIN DO, PHILLIP M Ot V57.89 06/17/2014 KAITLIN DO, PHILLIP M Ot 135 06/17/2014 KAITLIN DO, PHILLIP M Ot 278.00 06/17/2014 KAITLIN DO, PHILLIP M Ot 416.8 06/17/2014 KAITLIN DO, PHILLIP M Ot 425.4 06/17/2014 KAITLIN DO, PHILLIP M Ot 428.43 06/17/2014 KAITLIN DO, PHILLIP M Ot 493.90 06/17/2014 KAITLIN DO, PHILLIP M Ot 786.09 06/17/2014 KAITLIN DO, PHILLIP M Ot V57.89 06/20/2014 Ot 416.8 06/20/2014 Ot 425.4 06/20/2014 Ot 427.32 06/20/2014 Ot 428.0 06/20/2014 Ot V72.63 06/20/2014 Ot V72.81 06/20/2014 BAIMAVIRGIL L SPECIAL PROCEDURES NURSE Ot 397.0 06/20/2014 BAIMA, VIRGIL L SPECIAL PROCEDURES NURSE Ot 424.0 06/20/2014 BAIMAPIERREVIRGIL L SPECIAL PROCEDURES NURSE Ot 425.4 06/20/2014 ARTHUR SUAREZ, BELLA S Ot 135 06/20/2014 ARTHUR SUAREZ, BELLA S Ot 429.3 06/20/2014 ARTHUR SUAREZ, BELLA S Ot 786.05 06/20/2014 KAITLIN DO, PHILLIP M Ot 135 06/20/2014 KAITLIN DO, PHILLIP M Ot 416.8 06/20/2014 KAITLIN DO, PHILLIP M Ot 425.4 06/20/2014 KAITLIN DO, PHILLIP M Ot 428.43 06/20/2014 KAITLIN DO, PHILLIP M Ot 429.9 06/20/2014 KAITLIN DO, PHILLIP M Ot 493.90 06/20/2014 KAITLIN DO, PHILLIP M Ot 135 06/20/2014 KAITLIN DO, PHILLIP M Ot 278.00 06/20/2014 KAITLIN DO, PHILLIP M Ot 416.8 06/20/2014 KAITLIN DO, PHILLIP M Ot 425.4 06/20/2014 KAITLIN DO, PHILLIP M Ot 428.43 06/20/2014 KAITLIN DO, PHILLIP M Ot 493.90 06/20/2014 KAITLIN DO, PHILLIP M Ot 786.09 06/20/2014 KAITLIN DO, PHILLIP M Ot V57.89 06/20/2014 KAITLIN DO, PHILLIP M Ot 135 06/20/2014 KAITLIN DO, PHILLIP M Ot 278.00 06/20/2014 KAITLIN DO, PHILLIP M Ot 416.8 06/20/2014 KAITLIN DO, PHILLIP M Ot 425.4 06/20/2014 KAITLIN DO, PHILLIP M Ot 428.43 06/20/2014 KAITLIN DO, PHILLIP M Ot 493.90 06/20/2014 KAITLIN DOPHILLIP M Ot 786.09 06/20/2014 KAITLIN DO, PHILLIP M Ot V57.89 06/20/2014 KAITLIN DOPHILLIP M Ot 135 06/20/2014 KAITLIN DOPHILLIP M Ot 278.00 06/20/2014 KAITLIN DO, PHILLIP M Ot 416.8 06/20/2014 KAITLIN DO, PHILLIP M Ot 425.4 06/20/2014 KAITLIN DODINAPHILLIP M Ot 428.43 06/20/2014 KAITLINPHILLIP ALEMAN DO M Ot 493.90 06/20/2014 KAITLINPIHLLIP ALEMAN DO M Ot 786.09 06/20/2014 PHILLIP MADRIGAL DO M Ot V57.89 06/23/2014 PHILLIP MADRIGAL DO M Ot 135 06/23/2014 PHILLIP MADRIGAL DO M Ot 278.00 06/23/2014 PHILLIP MADRIGAL DO M Ot 416.8 06/23/2014 PHILLIP MADRIGAL DO M Ot 425.4 06/23/2014 DINA MADRIGAL DOSON M Ot 428.43 06/23/2014 KAITLIN DOPHILLIP M Ot 493.90 06/23/2014 PHILLIP MADRIGAL DO M Ot 786.09 06/23/2014 KAITLIN JENNINGS, PHILLIP M Ot V57.89 08/10/2014 PHILLIP MADRIGAL DO M Ot 135 08/10/2014 PHILLIP MADRIGAL DO M Ot 278.00 08/10/2014 PHILLIP MADRIGAL DO M Ot 416.8 08/10/2014 KAITLIN JENNINGS, PHILLIP M Ot 425.4 08/10/2014 KAITLIN DO, PHILLIP M Ot 428.43 08/10/2014 KAITLIN DODINAPHILLIP M Ot 493.90 08/10/2014 KAITLINDINA ALEMAN DOSON M Ot 786.09 08/10/2014 KAITLIN DINA JENNINGSSON M Ot V57.89 03/27/2016 THIAGO LONGO APRN Ot I51.7 CARDIOMEGALY 03/27/2016 THIAGO LONGO APRN Ot J45.909 UNSPECIFIED ASTHMA, UNCOMPLICATED 03/27/2016 THIAGO LONGO APRN Ot J98.11 ATELECTASIS 03/27/2016 THIAGO LONGO SECURITY SALES MANAGER Ot K80.20 CALCULUS OF GALLBLADDER W/O CHOLECYSTITI 03/27/2016 THIAGO LONGO SECURITY SALES MANAGER Ot R06.00 DYSPNEA, UNSPECIFIED 03/27/2016 THIAGO LONGO SECURITY SALES MANAGER Ot R59.0 LOCALIZED ENLARGED LYMPH NODES 04/11/2016 BAIMA, VIRGIL L SPECIAL PROCEDURES NURSE Ot I27.0 PRIMARY PULMONARY HYPERTENSION 04/11/2016 BAIMA, VIRGIL L SPECIAL PROCEDURES NURSE Ot I42.9 CARDIOMYOPATHY, UNSPECIFIED 04/11/2016 BAIMA, VIRGIL L SPECIAL PROCEDURES NURSE Ot I51.9 HEART DISEASE, UNSPECIFIED 04/11/2016 BAIMA, VIRGIL L SPECIAL PROCEDURES NURSE Ot R06.09 OTHER FORMS OF DYSPNEA 04/12/2016 BAIMA, VIRGIL L SPECIAL PROCEDURES NURSE Ot I27.0 PRIMARY PULMONARY HYPERTENSION 04/12/2016 BAIMA, VIRGIL L SPECIAL PROCEDURES NURSE Ot I42.9 CARDIOMYOPATHY, UNSPECIFIED 04/12/2016 BAIMA, VIRGIL L SPECIAL PROCEDURES NURSE Ot I51.9 HEART DISEASE, UNSPECIFIED 04/12/2016 BAIMA, VIRGIL L SPECIAL PROCEDURES NURSE Ot R06.09 OTHER FORMS OF DYSPNEA 04/24/2016 THIAGO LONGO SECURITY SALES MANAGER Ot I51.7 CARDIOMEGALY 04/24/2016 THIAGO LONGO APRN Ot J45.909 UNSPECIFIED ASTHMA, UNCOMPLICATED 04/24/2016 THIAGO LONGO APRN Ot J98.11 ATELECTASIS 04/24/2016 THIAGO LONGO APRN Ot K80.20 CALCULUS OF GALLBLADDER W/O CHOLECYSTITI 04/24/2016 THIAGO LONGO SECURITY SALES MANAGER Ot R06.00 DYSPNEA, UNSPECIFIED 04/24/2016 THIAGO LONGO SECURITY SALES MANAGER Ot R59.0 LOCALIZED ENLARGED LYMPH NODES 05/10/2016 BAIMA, VIRGIL L SPECIAL PROCEDURES NURSE Ot I27.0 PRIMARY PULMONARY HYPERTENSION 05/10/2016 BAIMA, VIRGIL L SPECIAL PROCEDURES NURSE Ot I42.9 CARDIOMYOPATHY, UNSPECIFIED 05/10/2016 BAIMA, VIRGIL L SPECIAL PROCEDURES NURSE Ot I51.9 HEART DISEASE, UNSPECIFIED 05/10/2016 BAIMA, VIRGIL L SPECIAL PROCEDURES NURSE Ot R06.09 OTHER FORMS OF DYSPNEA 04/10/2017 THIAGO LONGO SECURITY SALES MANAGER Ot I51.7 CARDIOMEGALY 04/10/2017 THIAGO LONGO SECURITY SALES MANAGER Ot J45.909 UNSPECIFIED ASTHMA, UNCOMPLICATED 04/10/2017 THIAGO LONGO SECURITY SALES MANAGER Ot J98.11 ATELECTASIS 04/10/2017 THIAGO LONGO SECURITY SALES MANAGER Ot K80.20 CALCULUS OF GALLBLADDER W/O CHOLECYSTITI 04/10/2017 THIAGO LONGO SECURITY SALES MANAGER Ot R06.00 DYSPNEA, UNSPECIFIED 04/10/2017 THIAGO LONGO SECURITY SALES MANAGER Ot R59.0 LOCALIZED ENLARGED LYMPH NODES 04/10/2017 CLEMENTEVIRGIL Omaira SPECIAL PROCEDURES NURSE Ot I27.0 PRIMARY PULMONARY HYPERTENSION 04/10/2017 PIERRE CORNEJOHER Omaira SPECIAL PROCEDURES NURSE Ot I42.9 CARDIOMYOPATHY, UNSPECIFIED 04/10/2017 BAIVIRGIL HELMS L SPECIAL PROCEDURES NURSE Ot I51.9 HEART DISEASE, UNSPECIFIED 04/10/2017 ANJALIVIRGIL HELMS SPECIAL PROCEDURES NURSE Ot R06.09 OTHER FORMS OF DYSPNEA 04/17/2017 PHILLIP MADRIGAL DO M Ot E66.9 OBESITY, UNSPECIFIED 04/17/2017 PHILLIP MADRIGAL DO M Ot I50.43 ACUTE ON CHRONIC COMBINED SYSTOLIC AND D 04/17/2017 PHILLIP MADRIGAL DO Ot N17.9 ACUTE KIDNEY FAILURE, UNSPECIFIED 04/17/2017 PHILLIP MADRIGAL DO Ot R91.8 OTHER NONSPECIFIC ABNORMAL FINDING OF 04/17/2017 PHILLIP MADRIGAL DO Ot Z87.09 PERSONAL HISTORY OF OTHER DISEASES OF 04/24/2017 PHILLIP MADRIGAL DO M Ot E66.9 OBESITY, UNSPECIFIED 04/24/2017 PHILLIP MADRIGAL DO M Ot I50.43 ACUTE ON CHRONIC COMBINED SYSTOLIC AND D 04/24/2017 PHILLIP MADRIGAL DO Ot N17.9 ACUTE KIDNEY FAILURE, UNSPECIFIED 04/24/2017 PHILLIP MADRIGAL DO Ot R91.8 OTHER NONSPECIFIC ABNORMAL FINDING OF 04/24/2017 PHILLIP MADRIGAL DO Ot Z87.09 PERSONAL HISTORY OF OTHER DISEASES OF 06/25/2017 SARAH SUAREZ FACC, HENRY YATESP CCDS Ot E66.8 OTHER OBESITY 06/25/2017 SARAH SUAREZ FACC, ALI FACP CCDS Ot I27.0 PRIMARY PULMONARY HYPERTENSION 06/25/2017 SARAH SUAREZ FACC, HENRY FACP CCDS Ot I42.0 DILATED CARDIOMYOPATHY 06/25/2017 SAR[facility] SU[facility]Z [facility], [facility] Ot I48.92 UNSPECIFIED ATRIAL FLUTTER 06/25/[address] [facility], ALI FACP CCDS Ot 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 06/25/[address] [facility], ALI FACP CCDS Ot N18.3 CHRONIC KIDNEY DISEASE, STAGE 3 (MODERAT 06/25/[address] [facility], ALI FACP CCDS Ot R91.1 SOLITARY PULMONARY NODULE 07/30/2017 MARY DE LOS SANTOS MD Ot D64.9 ANEMIA, UNSPECIFIED 07/30/2017 MARY DE LOS SANTOS MD Ot I27.20 PULMONARY HYPERTENSION, UNSPECIFIED 07/30/2017 MARY DE LOS SANTOS MD Ot I50.9 HEART FAILURE, UNSPECIFIED 07/30/2017 MARY DE LOS SANTOS MD Ot N18.4 CHRONIC KIDNEY DISEASE, STAGE 4 (SEVERE) 08/08/2017 MARY DE LOS SANTOS MD Ot D64.9 ANEMIA, UNSPECIFIED 08/08/2017 DOUG DE LOS SANTOS MDMAD Ot I27.20 PULMONARY HYPERTENSION, UNSPECIFIED 08/08/2017 DOUG DE LOS SANTOS MDMAD Ot I50.9 HEART FAILURE, UNSPECIFIED 08/08/2017 MARY DE LOS SANTOS MD Ot N18.4 CHRONIC KIDNEY DISEASE, STAGE 4 (SEVERE) 11/05/2017 MARY DE LOS SANTOS MD Ot D64.9 ANEMIA, UNSPECIFIED 11/05/2017 MARY DE LOS SANTOS MD Ot I27.20 PULMONARY HYPERTENSION, UNSPECIFIED 11/05/2017 MARY DE LOS SANTOS MD Ot I50.9 HEART FAILURE, UNSPECIFIED 11/05/2017 MARY DE LOS SANTOS MD Ot N18.4 CHRONIC KIDNEY DISEASE, STAGE 4 (SEVERE) 11/25/2017 THIAGO LONGO APRN Ot J45.901 UNSPECIFIED ASTHMA WITH (ACUTE) EXACERBA 12/01/2017 THIAGO LONGO APRN Ot I51.7 CARDIOMEGALY 12/01/2017 THIAGO LONGO APRN Ot J45.909 UNSPECIFIED ASTHMA, UNCOMPLICATED 12/01/2017 THIAGO LONGO APRN Ot J98.11 ATELECTASIS 12/01/2017 THIAGO LONGO APRN Ot K80.20 CALCULUS OF GALLBLADDER W/O CHOLECYSTITI 12/01/2017 THIAGO LONGO APRN Ot R06.00 DYSPNEA, UNSPECIFIED 12/01/2017 THIAGO LONGO APRN Ot R59.0 LOCALIZED ENLARGED LYMPH NODES 12/01/2017 CLEMENTEVIRGIL Omaira SPECIAL PROCEDURES NURSE Ot I27.0 PRIMARY PULMONARY HYPERTENSION 12/01/2017 ANJALIANALIA VIRGIL Omaira SPECIAL PROCEDURES NURSE Ot I42.9 CARDIOMYOPATHY, UNSPECIFIED 12/01/2017 ANJALIANALIA VIRGIL L SPECIAL PROCEDURES NURSE Ot I51.9 HEART DISEASE, UNSPECIFIED 12/01/2017 CLEMENTEVIRGIL SPECIAL PROCEDURES NURSE Ot R06.09 OTHER FORMS OF DYSPNEA 12/01/2017 PHILLIP MADRIGAL DO Ot E66.9 OBESITY, UNSPECIFIED 12/01/2017 PHILLIP MADRIGAL DO Ot I50.43 ACUTE ON CHRONIC COMBINED SYSTOLIC AND D 12/01/2017 PHILLIP MADRIGAL DO Ot N17.9 ACUTE KIDNEY FAILURE, UNSPECIFIED 12/01/2017 PHILLIP MADRIGAL DO Ot R91.8 OTHER NONSPECIFIC ABNORMAL FINDING OF 12/01/2017 PHILLIP MADRIGAL DO Ot Z87.09 PERSONAL HISTORY OF OTHER DISEASES OF TH 12/01/2017 SARAH SUAREZ FACC, HENRY FACP CCDS Ot E66.8 OTHER OBESITY 12/01/2017 SARAH SUAREZ FACC, ALI FACP CCDS Ot I27.0 PRIMARY PULMONARY HYPERTENSION 12/01/2017 SARAH SUAREZ FACC, HENRY FACP CCDS Ot I42.0 DILATED CARDIOMYOPATHY 12/01/2017 SARAH SUAREZ FACC, ALI FACP CCDS Ot I48.92 UNSPECIFIED ATRIAL FLUTTER 12/01/2017 SARAH SUAREZ FACC, ALI FACP CCDS Ot 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 12/01/2017 SARAH SUAREZ FACC, ALI FACP CCDS Ot N18.3 CHRONIC KIDNEY DISEASE, STAGE 3 (MODERAT 12/01/2017 SARAH SUAREZ FACC, ALI FACP CCDS Ot R91.1 SOLITARY PULMONARY NODULE 12/01/2017 MARY DE LOS SANTOS MD, Ot D64.9 ANEMIA, UNSPECIFIED 12/01/2017 MARY DE LOS SANTOS MD, Ot I27.20 PULMONARY HYPERTENSION, UNSPECIFIED 12/01/2017 MARY DE LOS SANTOS MD Ot I50.9 HEART FAILURE, UNSPECIFIED 12/01/2017 MARY DE LOS SANTOS MD Ot N18.4 CHRONIC KIDNEY DISEASE, STAGE 4 (SEVERE) 12/01/2017 THIAGO LONGO APRN Ot J45.901 UNSPECIFIED ASTHMA WITH (ACUTE) EXACERBA 12/01/2017 THIAGO LOGNO APRN Ot J45.901 UNSPECIFIED ASTHMA WITH (ACUTE) EXACERBA 12/01/2017 THIAGO LONGO APRN Ot M79.89 OTHER SPECIFIED SOFT TISSUE DISORDERS 12/01/2017 THIAGO LONGO APRN Ot R91.8 OTHER NONSPECIFIC ABNORMAL FINDING OF 12/05/2017 JERI GUTIERRES MD Ot I48.91 UNSPECIFIED ATRIAL FIBRILLATION 12/05/2017 JERI GUTIERRES MD Ot I50.9 HEART FAILURE, UNSPECIFIED 12/05/2017 JERI GUTIERRES MD Ot J44.1 CHRONIC OBSTRUCTIVE PULMONARY DISEASE W 12/05/2017 JERI GUTIERRES MD Ot R06.02 SHORTNESS OF BREATH 12/05/2017 JERI GUTIERRES MD Ot Z79.01 ACTUARIAL TECHNICIAN (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 OF ANTICOAGULANT 12/05/2017 JERI GUTIERRES MD Ot Z79.51 RESIDENTIAL (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 OF INHALED STERO 12/05/2017 JERI GUTIERRES MD Ot Z90.710 ACQUIRED ABSENCE OF BOTH CERVIX AND UTER 12/08/2017 JERI GUTIERRES MD Ot I48.91 UNSPECIFIED ATRIAL FIBRILLATION 12/08/2017 JERI GUTIERRES MD Ot I50.9 HEART FAILURE, UNSPECIFIED 12/08/2017 JERI GUTIERRES MD Ot J44.1 CHRONIC OBSTRUCTIVE PULMONARY DISEASE W 12/08/2017 JERI GUTIERRES MD Ot R06.02 SHORTNESS OF BREATH 12/08/2017 JERI GUTIERRES MD Ot Z79.01 RESIDENTIAL (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 OF ANTICOAGULANT 12/08/2017 JERI GUTIERRES MD Ot Z79.51 ACTUARIAL TECHNICIAN (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 OF INHALED STERO 12/08/2017 JERI GUTIERRES MD Ot Z90.710 ACQUIRED ABSENCE OF BOTH CERVIX AND UTER 12/10/2017 Ot I48.91 UNSPECIFIED ATRIAL FIBRILLATION 12/10/2017 Ot I50.9 HEART FAILURE , UNSPECIFIED 12/10/2017 Ot J18.1 LOBAR PNEUMONIA, UNSPECIFIED ORGANISM 12/10/2017 Ot J44.9 CHRONIC OBSTRUCTIVE PULMONARY DISEASE, U 12/10/2017 Ot R06.02 SHORTNESS OF BREATH 12/10/2017 Ot Z79.01 ACTUARIAL TECHNICIAN ( 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 OF ANTICOAGULANT 12/10/2017 Ot Z90.710 ACQUIRED ABSENCE OF BOTH CERVIX AND UTER 12/21/2017 THIAGO LONGO APRN Ot D86.0 SARCOIDOSIS OF LUNG 12/21/2017 THIAGO LONGO APRN Ot G47.10 HYPERSOMNIA, UNSPECIFIED 12/21/2017 THIAGO LONGO APRN Ot G47.50 PARASOMNIA, UNSPECIFIED 12/21/2017 TIHAGO LONGO APRN Ot J45.909 UNSPECIFIED ASTHMA, UNCOMPLICATED 12/21/2017 THIAGO LONGO APRN Ot R09.02 HYPOXEMIA 12/21/2017 THIAGO LONGO SECURITY SALES MANAGER Ot R29.818 OTHER SYMPTOMS AND SIGNS INVOLVING THE N 12/24/2017 Levin, Gem-Eric W 428.32 CHRONIC DIASTOLIC HEART FAILURE 12/24/2017 Levin, Gem-Eric W 486 PNEUMONIA, ORGANISM UNSPECIFIED 12/24/2017 Levin, Gem-Eric W I50.32 CHRONIC DIASTOLIC (CONGESTIVE) HEART FAILURE 12/24/2017 Levin, Gem-Eric W J18.9 PNEUMONIA, UNSPECIFIED ORGANISM 12/24/2017 Levin, Gem-Eric W 428.32 CHRONIC DIASTOLIC HEART FAILURE 12/24/2017 Levin, Gem-Eric W 486 PNEUMONIA, ORGANISM UNSPECIFIED 12/24/2017 Levin, Gem-Eric W I50.32 CHRONIC DIASTOLIC (CONGESTIVE) HEART FAILURE 12/24/2017 Ollie, Gem-Eric W J18.9 PNEUMONIA, UNSPECIFIED ORGANISM 01/01/2018 THIAGO LONGO SECURITY SALES MANAGER Ot J45.901 UNSPECIFIED ASTHMA WITH (ACUTE) EXACERBA 01/01/2018 THIAGO LONGO SECURITY SALES MANAGER Ot M79.89 OTHER SPECIFIED SOFT TISSUE DISORDERS 01/01/2018 THIAGO LONGO APRN Ot R91.8 OTHER NONSPECIFIC ABNORMAL FINDING OF 01/01/2018 THIAGO LONGO SECURITY SALES MANAGER Ot J45.901 UNSPECIFIED ASTHMA WITH (ACUTE) EXACERBA 01/08/2018 THIAGO LONGO SECURITY SALES MANAGER Ot J45.901 UNSPECIFIED ASTHMA WITH (ACUTE) EXACERBA 01/08/2018 THIAGO LONGO SECURITY SALES MANAGER Ot M79.89 OTHER SPECIFIED SOFT TISSUE DISORDERS 01/08/2018 THIAGO LONGO SECURITY SALES MANAGER Ot R91.8 OTHER NONSPECIFIC ABNORMAL FINDING OF 02/03/2018 SARAH SUAREZ FACC, ALI FACP CCDS Ot E66.8 OTHER OBESITY 02/03/2018 SARAH SUAREZ FACC, ALI FACP CCDS Ot I27.0 PRIMARY PULMONARY HYPERTENSION 02/03/2018 SARAH SUAREZ FACC, ALI FACP CCDS Ot I42.0 DILATED CARDIOMYOPATHY 02/03/2018 SARAH SUAREZ FACC, ALI FACP CCDS Ot I48.92 UNSPECIFIED ATRIAL FLUTTER 02/03/2018 SARAH SUAREZ FACC, ALI FACP CCDS Ot 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 02/03/2018 SARAH SUAREZ FAC, ALI FACP CCDS Ot N18.3 CHRONIC KIDNEY DISEASE, STAGE 3 (MODERAT 02/03/2018 SARAH SUAREZ FACC, ALI FACP CCDS Ot R91.1 SOLITARY PULMONARY NODULE 02/17/2018 MARY DE LOS SANTOS MD Ot D64.9 ANEMIA, UNSPECIFIED 02/17/2018 MARY DE LOS SANTOS MD Ot I27.20 PULMONARY HYPERTENSION, UNSPECIFIED 02/17/2018 MARY DE LOS SANTOS MD Ot I50.9 HEART FAILURE, UNSPECIFIED 02/17/2018 MARY DE LOS SANTOS MD Ot N18.4 CHRONIC KIDNEY DISEASE, STAGE 4 (SEVERE) 03/18/2018 JERI GUTIERRES MD Ot I48.91 UNSPECIFIED ATRIAL FIBRILLATION 03/18/2018 JERI GUTIERRES MD Ot I50.9 HEART FAILURE, UNSPECIFIED 03/18/2018 JERI GUTIERRES MD Ot J44.1 CHRONIC OBSTRUCTIVE PULMONARY DISEASE W 03/18/2018 JERI GUTIERRES MD Ot R06.02 SHORTNESS OF BREATH 03/18/2018 JERI GUTIERRES MD Ot Z79.01 RESIDENTIAL (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 OF ANTICOAGULANT 03/18/2018 JERI GUTIERRES MD, Ot Z79.51 RESIDENTIAL (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 OF INHALED STERO 03/18/2018 JERI GUTIERRES MD, Ot Z90.710 ACQUIRED ABSENCE OF BOTH CERVIX AND UTER Procedures There is no data. Results Test Result Range Complete blood count (CBC) with automated white blood cell (WBC) differential - 07/29/17 13:05 Blood leukocytes automated count (number/volume) 4.6 10*3/uL 4.3-11.0 Blood erythrocytes automated count (number/volume) 4.37 10*6/uL 4.35-5.85 Venous blood hemoglobin measurement (mass/volume) 11.9 g/dL 11.5-16.0 Blood hematocrit (volume fraction) 37 % 35-52 Automated erythrocyte mean corpuscular volume 84 [foz_us] 80-99 Automated erythrocyte mean corpuscular hemoglobin (mass per erythrocyte) 27 pg 25-34 Automated erythrocyte mean corpuscular hemoglobin concentration measurement ( mass/volume) 33 g/dL 32-36 Automated erythrocyte distribution width ratio 14.9 % 10.0-14.5 Automated blood platelet count (count/volume) 224 10*3/uL 130-400 Automated blood platelet mean volume measurement 10.4 [foz_us] 7.4-10.4 Automated blood neutrophils/100 leukocytes 64 % 42-75 Automated blood lymphocytes/100 leukocytes 22 % 12-44 Blood monocytes/100 leukocytes 12 % 0-12 Automated blood eosinophils/100 leukocytes 2 % 0-10 Automated blood basophils/100 leukocytes 0 % 0-10 Blood neutrophils automated count (number/volume) 2.9 10*3 1.8-7.8 Blood lymphocytes automated count (number/volume) 1.0 10*3 1.0-4.0 Blood monocytes automated count (number/volume) 0.6 10*3 0.0-1.0 Automated eosinophil count 0.1 10*3/uL 0.0-0.3 Automated blood basophil count (count/volume) 0.0 10*3/uL 0.0-0.1 Complete urinalysis with reflex to culture - 07/29/17 13:05 Urine color determination YELLOW NRG Urine clarity determination CLEAR NRG Urine pH measurement by test strip 6 5-9 Specific gravity of urine by test strip 1.010 1.016- 1.022 Urine protein assay by test strip, semi-quantitative NEGATIVE NEGATIVE Urine glucose detection by automated test strip NEGATIVE NEGATIVE Erythrocytes detection in urine sediment by light microscopy NEGATIVE NEGATIVE Urine ketones detection by automated test strip NEGATIVE NEGATIVE Urine nitrite detection by test strip NEGATIVE NEGATIVE Urine total bilirubin detection by test strip NEGATIVE NEGATIVE Urine urobilinogen measurement by automated test strip (mass/volume) NORMAL NORMAL Urine leukocyte esterase detection by dipstick NEGATIVE NEGATIVE Automated urine sediment erythrocyte count by microscopy (number/high power field) NONE NRG Automated urine sediment leukocyte count by microscopy (number/high power field ) NONE NRG Bacteria detection in urine sediment by light microscopy NEGATIVE NRG Squamous epithelial cells detection in urine sediment by light microscopy 0-2 NRG Crystals detection in urine sediment by light microscopy NONE NRG Casts detection in urine sediment by light microscopy PRESENT NRG Mucus detection in urine sediment by light microscopy NEGATIVE NRG Complete urinalysis with reflex to culture NO NRG Hyaline casts detection in urine sediment by light microscopy 2-5 NRG Serum or plasma renal function panel (Na, K, Cl, CO2, BUN, Cr, glucose,Ca, phos , alb) - 07/29/17 13:05 Serum or plasma sodium measurement (moles/volume) 138 mmol/L 135-145 Serum or plasma potassium measurement (moles/volume) 4.7 mmol/L 3.6-5.0 Serum or plasma chloride measurement (moles/volume) 103 mmol/L 98-107 Carbon dioxide 25 mmol/L 21-32 Serum or plasma anion gap determination (moles/volume) 10 mmol/L 5-14 Serum or plasma urea nitrogen measurement (mass/volume) 31 mg/dL 7-18 Serum or plasma creatinine measurement (mass/volume) 1.77 mg/dL 0.60-1.30 Serum or plasma urea nitrogen/creatinine mass ratio 18 NRG Serum or plasma creatinine measurement with calculation of estimated glomerular filtration rate 35 NRG Serum or plasma glucose measurement (mass/volume) 86 mg/dL 70-105 Serum or plasma calcium measurement (mass/volume) 9.6 mg/dL 8.5-10.1 Serum or plasma albumin measurement (mass/volume) 4.0 g/dL 3.2-4.5 Serum or plasma phosphate measurement (mass/volume) 4.1 mg/dL 2.3-4.7 Serum or plasma uric acid measurement (mass/volume) - 07/29/17 13:05 Serum or plasma uric acid measurement (mass/volume) 7.7 mg/dL 2.6-7.2 Urine protein/creatinine mass ratio - 07/29/17 13:05 Urine protein measurement (mass/volume) < mg/dL 6-12 Urine creatinine measurement (mass/volume) 29 mg/dL 30- 125 Urine protein/creatinine mass ratio TNP NRG Serum iron and total iron binding capacity panel - 07/29/17 13:05 Serum or plasma iron measurement (mass/volume) 61 % 35- 180 Total iron binding capacity and transferrin saturation measurement 13 % 15-50 Iron binding capacity [mass/volume] in serum or plasma 455 % 280-380 UIBC (unsaturated iron binding capacity) 394 % 55-450 Serum or plasma ferritin measurement (mass/volume) 15.0 % 15.0-150.0 Serum or plasma intact pararthyroid hormone measurement (mass/volume) - 13:05 Serum or plasma intact parathyroid hormone measurement (mass/volume) 111.0 pg/mL 10.0-65.0 Bio-intact parathyroid hormone (PTH) measurement with calcium 9.7 % 8.5-10.5 VITAMIN D 25-HYDROXY - 07/29/17 13:05 VITAMIN D 25-HYDROXY (TOTAL) 13 % 30-100 Arterial blood gas measurement - 11/25/17 15:52 Blood pCO2 40 mm[Hg] 35-45 Blood pO2 61 mm[Hg] 79-93 Arterial blood bicarbonate measurement (moles/volume) 24 mmol/L 23-27 Arterial blood base excess by calculation -0.4 mmol/L - 2.5-2.5 Arterial blood oxygen saturation measurement 88 % 94-100 * Inhaled oxygen flow rate 2L NRG Arterial blood pH measurement with patient temperature correction 7.39 7.37-7.43 Arterial blood carbon dioxide, total measurement (moles/volume) 25.1 mmol/L 21.0-31.0 Body site LT RAD NRG Assessment of wrist artery patency prior to arterial puncture YES- POS NRG Setting of ventilation mode NO NRG Measurement of body temperature 98.3 NRG Complete blood count (CBC) with automated white blood cell (WBC) differential - 12/05/17 13:45 Blood leukocytes automated count (number/volume) 8.2 10*3/uL 4.3-11.0 Blood erythrocytes automated count (number/volume) 4.76 10*6/uL 4.35-5.85 Venous blood hemoglobin measurement (mass/volume) 13.7 g/dL 11.5-16.0 Blood hematocrit (volume fraction) 42 % 35-52 Automated erythrocyte mean corpuscular volume 88 [foz_us] 80-99 Automated erythrocyte mean corpuscular hemoglobin (mass per erythrocyte) 29 pg 25-34 Automated erythrocyte mean corpuscular hemoglobin concentration measurement ( mass/volume) 33 g/dL 32-36 Automated erythrocyte distribution width ratio 16.4 % 10.0-14.5 Automated blood platelet count (count/volume) 197 10*3/uL 130-400 Automated blood platelet mean volume measurement 10.6 [foz_us] 7.4-10.4 Automated blood neutrophils/100 leukocytes 93 % 42-75 Automated blood lymphocytes/100 leukocytes 4 % 12-44 Blood monocytes/100 leukocytes 3 % 0-12 Automated blood eosinophils/100 leukocytes 0 % 0-10 Automated blood basophils/100 leukocytes 0 % 0-10 Blood neutrophils automated count (number/volume) 7.6 10*3 1.8-7.8 Blood lymphocytes automated count (number/volume) 0.3 10*3 1.0-4.0 Blood monocytes automated count (number/volume) 0.3 10*3 0.0-1.0 Automated eosinophil count 0.0 10*3/uL 0.0-0.3 Automated blood basophil count (count/volume) 0.0 10*3/uL 0.0-0.1 Blood manual differential performed detection - 12/05/17 13:45 Blood monocytes/100 leukocytes 1 % NR Manual blood segmented neutrophils/100 leukocytes 94 % NRG Blood band neutrophils/100 leukocytes 0 % NRG Manual blood lymphocytes/100 leukocytes 5 % NRG Manual eosinophils/100 leukocytes in nose 0 % NRG Manual blood basophils/100 leukocytes 0 % NR Blood erythrocyte morphology finding identification NORMAL [facility] Comprehensive metabolic panel - 12/05/17 13:45 Serum or plasma sodium measurement (moles/volume) 138 mmol/L 135-145 Serum or plasma potassium measurement (moles/volume) 4.1 mmol/L 3.6-5.0 Serum or plasma chloride measurement (moles/volume) 104 mmol/L 98-107 Carbon dioxide 26 mmol/L 21-32 Serum or plasma anion gap determination (moles/volume) 8 mmol/L 5-14 Serum or plasma urea nitrogen measurement (mass/volume) 44 mg/dL 7-18 Serum or plasma creatinine measurement (mass/volume) 1.54 mg/dL 0.60-1.30 Serum or plasma urea nitrogen/creatinine mass ratio 29 NRG Serum or plasma creatinine measurement with calculation of estimated glomerular filtration rate 41 NRG Serum or plasma glucose measurement (mass/volume) 122 mg/dL 70-105 Serum or plasma calcium measurement (mass/volume) 9.1 mg/dL 8.5-10.1 Serum or plasma total bilirubin measurement (mass/volume) 2.0 mg/dL 0.1-1.0 Serum or plasma alkaline phosphatase measurement (enzymatic activity/volume) 287 U/L 40-136 Serum or plasma aspartate aminotransferase measurement (enzymatic activity/ volume) 65 U/L 5-34 Serum or plasma alanine aminotransferase measurement (enzymatic activity/volume ) 119 U/L 0-55 Serum or plasma protein measurement (mass/volume) 6.4 g/dL 6.4-8.2 Serum or plasma albumin measurement (mass/volume) 3.7 g/dL 3.2-4.5 Serum or plasma lithium measurement (moles/volume) - 12/05/17 13:45 BNP level 2508.6 pg/mL <100.0 Serum or plasma troponin i.cardiac measurement (mass/volume) - 12/05/17 13:45 Serum or plasma troponin i.cardiac measurement (mass/volume) < ng/ mL <0.30 Complete blood count (CBC) with automated white blood cell (WBC) differential - 12/10/17 12:13 Blood leukocytes automated count (number/volume) 8.8 10*3/uL 4.3-11.0 Blood erythrocytes automated count (number/volume) 4.79 10*6/uL 4.35-5.85 Venous blood hemoglobin measurement (mass/volume) 14.3 g/dL 11.5-16.0 Blood hematocrit (volume fraction) 43 % 35-52 Automated erythrocyte mean corpuscular volume 90 [foz_us] 80-99 Automated erythrocyte mean corpuscular hemoglobin (mass per erythrocyte) 30 pg 25-34 Automated erythrocyte mean corpuscular hemoglobin concentration measurement ( mass/volume) 33 g/dL 32-36 Automated erythrocyte distribution width ratio 16.9 % 10.0-14.5 Automated blood platelet count (count/volume) 194 10*3/uL 130-400 Automated blood platelet mean volume measurement 10.6 [foz_us] 7.4-10.4 Automated blood neutrophils/100 leukocytes 83 % 42-75 Automated blood lymphocytes/100 leukocytes 8 % 12-44 Blood monocytes/100 leukocytes 8 % 0-12 Automated blood eosinophils/100 leukocytes 0 % 0-10 Automated blood basophils/100 leukocytes 0 % 0-10 Blood neutrophils automated count (number/volume) 7.4 10*3 1.8-7.8 Blood lymphocytes automated count (number/volume) 0.7 10*3 1.0-4.0 Blood monocytes automated count (number/volume) 0.7 10*3 0.0-1.0 Automated eosinophil count 0.0 10*3/uL 0.0-0.3 Automated blood basophil count (count/volume) 0.0 10*3/uL 0.0-0.1 Comprehensive metabolic panel - 12/10/17 12:13 Serum or plasma sodium measurement (moles/volume) 137 mmol/L 135-145 Serum or plasma potassium measurement (moles/volume) 3.8 mmol/L 3.6-5.0 Serum or plasma chloride measurement (moles/volume) 99 mmol/L 98-107 Carbon dioxide 26 mmol/L 21-32 Serum or plasma anion gap determination (moles/volume) 12 mmol/L 5-14 Serum or plasma urea nitrogen measurement (mass/volume) 38 mg/dL 7-18 Serum or plasma creatinine measurement (mass/volume) 1.67 mg/dL 0.60-1.30 Serum or plasma urea nitrogen/creatinine mass ratio 23 NRG Serum or plasma creatinine measurement with calculation of estimated glomerular filtration rate 37 NRG Serum or plasma glucose measurement (mass/volume) 96 mg/dL 70-105 Serum or plasma calcium measurement (mass/volume) 9.0 mg/dL 8.5-10.1 Serum or plasma total bilirubin measurement (mass/volume) 2.3 mg/dL 0.1-1.0 Serum or plasma alkaline phosphatase measurement (enzymatic activity/volume) 392 U/L 40-136 Serum or plasma aspartate aminotransferase measurement (enzymatic activity/ volume) 79 U/L 5-34 Serum or plasma alanine aminotransferase measurement (enzymatic activity/volume ) 180 U/L 0-55 Serum or plasma protein measurement (mass/volume) 6.5 g/dL 6.4-8.2 Serum or plasma albumin measurement (mass/volume) 3.6 g/dL 3.2-4.5 Serum or plasma lithium measurement (moles/volume) - 12/10/17 12:13 BNP level 2468.5 pg/mL <100.0 Serum or plasma troponin i.cardiac measurement (mass/volume) - 12/10/17 12:13 Serum or plasma troponin i.cardiac measurement (mass/volume) < ng/ mL <0.30 BNP - 12/19/17 11:45 BNP 2490.00 pg/ml 0.00-100.00 BNP - 12/24/17 14:38 BNP 1338.90 pg/ml 0.00-100.00 Other Culture - 01/29/18 17:36 PRELIM CULTURE RESULTS Abundant Gram Negative RADHA / ID to Follow MEDIA PLATED Setup at 18:11 on 01/29/2018 [facility] - 01/29/18 17:36 FINAL CULTURE RESULTS Klebsiella pneumoniae (Isolate 1) Ampicillin/Sulbactam <=8/4 Ampicillin <=8 Amoxicillin/K Clavulanate <=8/4 Ceftriaxone <=8 Ciprofloxacin <=1 Nitrofurantoin <=32 Gentamicin <=4 Levofloxacin <=2 Trimethoprim/ Sulfamethoxazole <=2/38 Tetracycline <=4 Amikacin <=16 Aztreonam <=8 Ceftazidime <=1 Ceftazidime/K Clavulanate <=0.25 Cephalothin <=8 Cefotaxime <=2 Cefotaxime/K Clavulanate <=0.5 Cefoxitin <=8 Cefazolin <=8 Cefepime <=8 Cefuroxime <=4 Ertapenem <=1 Imipenem <=4 Meropenem <=4 Piperacillin/Tazobactam <=16 Piperacillin <=16 Tigecycline <=2 Tobramycin <=4 Automated blood complete blood count (hemogram) panel - 09/22/18 12:58 Blood leukocytes automated count (number/volume) 6.0 10*3/uL 4.3-11.0 Blood erythrocytes automated count (number/volume) 3.92 10*6/uL 4.35-5.85 Venous blood hemoglobin measurement (mass/volume) 11.7 g/dL 11.5-16.0 Blood hematocrit (volume fraction) 36 % 35-52 Automated erythrocyte mean corpuscular volume 93 [foz_us] 80-99 Automated erythrocyte mean corpuscular hemoglobin (mass per erythrocyte) 30 pg 25-34 Automated erythrocyte mean corpuscular hemoglobin concentration measurement ( mass/volume) 32 g/dL 32-36 Automated erythrocyte distribution width ratio 13.7 % 10.0-14.5 Automated blood platelet count (count/volume) 161 10*3/uL 130-400 Automated blood platelet mean volume measurement 11.0 [foz_us] 7.4-10.4 PT panel in platelet poor plasma by coagulation assay - 09/22/18 12:58 Prothrombin time (PT) in platelet poor plasma by coagulation assay 13.3 s 12.2-14.7 INR in platelet poor plasma or blood by coagulation assay 1.0 0.8-1.4 Activated partial thromboplastin time (aPTT) in platelet poor plasma bycoagulation assay - 09/22/18 12:58 Activated partial thromboplastin time (aPTT) in platelet poor plasma bycoagulation assay 24 s 24-35 Comprehensive metabolic panel - 09/22/18 12:58 Serum or plasma sodium measurement (moles/volume) 141 mmol/L 135-145 Serum or plasma potassium measurement (moles/volume) 4.0 mmol/L 3.6-5.0 Serum or plasma chloride measurement (moles/volume) 107 mmol/L 98-107 Carbon dioxide 25 mmol/L 21-32 Serum or plasma anion gap determination (moles/volume) 9 mmol/L 5-14 Serum or plasma urea nitrogen measurement (mass/volume) 24 mg/dL 7-18 Serum or plasma creatinine measurement (mass/volume) 1.30 mg/dL 0.60-1.30 Serum or plasma urea nitrogen/creatinine mass ratio 18 NRG Serum or plasma creatinine measurement with calculation of estimated glomerular filtration rate 50 NRG Serum or plasma glucose measurement (mass/volume) 100 mg/dL 70-105 Serum or plasma calcium measurement (mass/volume) 9.4 mg/dL 8.5-10.1 Serum or plasma total bilirubin measurement (mass/volume) 0.7 mg/dL 0.1-1.0 Serum or plasma alkaline phosphatase measurement (enzymatic activity/volume) 66 U/L 40-136 Serum or plasma aspartate aminotransferase measurement (enzymatic activity/ volume) 18 U/L 5-34 Serum or plasma alanine aminotransferase measurement (enzymatic activity/volume ) 22 U/L 0-55 Serum or plasma protein measurement (mass/volume) 7.5 g/dL 6.4-8.2 Serum or plasma albumin measurement (mass/volume) 4.1 g/dL 3.2-4.5 CALCIUM CORRECTED 9.3 mg/dL 8.5-10.1 Lipid 1996 panel - 09/22/18 12:58 Serum or plasma triglyceride measurement (mass/volume) 86 mg/dL <150 Serum or plasma cholesterol measurement (mass/volume) 200 mg/dL < 200 Serum or plasma cholesterol in HDL measurement (mass/volume) 61 mg/ dL 40-60 Cholesterol in LDL [mass/volume] in serum or plasma by direct assay 125 mg/dL 1-129 Serum or plasma cholesterol in VLDL measurement (mass/volume) 17 mg/ dL 5-40 Methicillin resistant Staphylococcus aureus (MRSA) screening culture - 12:58 Methicillin resistant Staphylococcus aureus (MRSA) screening culture NEG NRG Complete blood count (CBC) with automated white blood cell (WBC) differential - 09/23/18 11:24 Blood leukocytes automated count (number/volume) 8.5 10*3/uL 4.3-11.0 Blood erythrocytes automated count (number/volume) 3.79 10*6/uL 4.35-5.85 Venous blood hemoglobin measurement (mass/volume) 11.4 g/dL 11.5-16.0 Blood hematocrit (volume fraction) 35 % 35-52 Automated erythrocyte mean corpuscular volume 93 [foz_us] 80-99 Automated erythrocyte mean corpuscular hemoglobin (mass per erythrocyte) 30 pg 25-34 Automated erythrocyte mean corpuscular hemoglobin concentration measurement ( mass/volume) 32 g/dL 32-36 Automated erythrocyte distribution width ratio 14.0 % 10.0-14.5 Automated blood platelet count (count/volume) 155 10*3/uL 130-400 Automated blood platelet mean volume measurement 10.6 [foz_us] 7.4-10.4 Automated blood neutrophils/100 leukocytes 85 % 42-75 Automated blood lymphocytes/100 leukocytes 6 % 12-44 Blood monocytes/100 leukocytes 8 % 0-12 Automated blood eosinophils/100 leukocytes 1 % 0-10 Automated blood basophils/100 leukocytes 0 % 0-10 Blood neutrophils automated count (number/volume) 7.3 10*3 1.8-7.8 Blood lymphocytes automated count (number/volume) 0.5 10*3 1.0-4.0 Blood monocytes automated count (number/volume) 0.7 10*3 0.0-1.0 Automated eosinophil count 0.0 10*3/uL 0.0-0.3 Automated blood basophil count (count/volume) 0.0 10*3/uL 0.0-0.1 Comprehensive metabolic panel - 09/23/18 11:24 Serum or plasma sodium measurement (moles/volume) 141 mmol/L 135-145 Serum or plasma potassium measurement (moles/volume) 4.4 mmol/L 3.6-5.0 Serum or plasma chloride measurement (moles/volume) 107 mmol/L 98-107 Carbon dioxide 21 mmol/L 21-32 Serum or plasma anion gap determination (moles/volume) 13 mmol/L 5-14 Serum or plasma urea nitrogen measurement (mass/volume) 21 mg/dL 7-18 Serum or plasma creatinine measurement (mass/volume) 1.27 mg/dL 0.60-1.30 Serum or plasma urea nitrogen/creatinine mass ratio 17 NRG Serum or plasma creatinine measurement with calculation of estimated glomerular filtration rate 51 NRG Serum or plasma glucose measurement (mass/volume) 108 mg/dL 70-105 Serum or plasma calcium measurement (mass/volume) 9.8 mg/dL 8.5-10.1 Serum or plasma total bilirubin measurement (mass/volume) 0.9 mg/dL 0.1-1.0 Serum or plasma alkaline phosphatase measurement (enzymatic activity/volume) 67 U/L 40-136 Serum or plasma aspartate aminotransferase measurement (enzymatic activity/ volume) 20 U/L 5-34 Serum or plasma alanine aminotransferase measurement (enzymatic activity/volume ) 18 U/L 0-55 Serum or plasma protein measurement (mass/volume) 7.7 g/dL 6.4-8.2 Serum or plasma albumin measurement (mass/volume) 4.1 g/dL 3.2-4.5 CALCIUM CORRECTED 9.7 mg/dL 8.5-10.1 Magnesium - 09/23/18 11:24 Magnesium 2.3 mg/dL 1.8-2.4 Serum or plasma troponin i.cardiac measurement (mass/volume) - 09/23/18 11:24 Serum or plasma troponin i.cardiac measurement (mass/volume) < ng/ mL <0.028 Serum or plasma C reactive protein measurement (mass/volume) - 09/23/18 11:24 Serum or plasma C reactive protein measurement (mass/volume) 3.25 mg /dL 0.00-0.50 Blood manual differential performed detection - 09/23/18 11:24 Blood monocytes/100 leukocytes 8 % NRG Manual blood segmented neutrophils/100 leukocytes 85 % NRG Manual blood lymphocytes/100 leukocytes 7 % NRG Blood erythrocyte morphology finding identification NORMAL NRG Serum or plasma lithium measurement (moles/volume) - 09/23/18 11:24 BNP level 1004.0 pg/mL <100.0 Encounters ACCT No. Visit Date/Time Discharge Status Pt. Type Provider Facility Loc./Unit Complaint [id number] 08/13/2018 10:48:00 08/13/2018 23:59:59 CLS Preadmit THIAGO LONGO APRN [facility] RT BRONCHIAL ASTHMA [id number] 01/08/2018 14:58:00 01/08/2018 23:59:59 CLS Preadmit THIAGO LONGO APRN [facility] RAD ACUTE ON CHRONIC COMBINED SYSTOLIC AND DIASTOLIC [id number] 12/05/2017 12:14:00 12/05/2017 15:52:00 DIS Emergency NENITA SUAREZ, JERI Goodman [facility] ER SOB,NAUSEA,SWELLING ON LE [id number] 12/01/2017 10:39:00 12/01/2017 23:59:59 CLS Outpatient THIAGO LONGO APRN [facility] RAD LEG SWELLING, ASTHMA EXACERBATION,LUNG NODULE [id number] 11/25/2017 15:36:00 11/25/2017 23:59:59 CLS Outpatient THIAGO LONGO APRN [facility] SLEEP BRONCHIAL ASTHMA, SUSPECTED SLEEP APNEA,HYPERSOMNIA [id number] 11/25/2017 15:21:00 11/25/2017 23:59:59 CLS Outpatient THIAGO LONGO APRN [facility] RT ASTHMA EXACERBATION [id number] 07/29/2017 12:47:00 07/29/2017 23:59:59 CLS Outpatient MAGALI SUAREZ, MARY [facility] RAD CHRONIC KIDNEY DISEASE STAGE 4 [id number] 05/23/2017 10:40:00 05/23/2017 23:59:59 CLS Outpatient SARAH SUAREZ FACC, HENRY LOVE CCDS [facility] CARD ATRIAL FLUTTER [id number] 04/11/2017 12:56:00 04/11/2017 23:59:59 CLS Outpatient PHILLIP MADRIGAL DO [facility] RAD LUNG NODULE,OBESITY, SARCOIDOSIS [id number] 04/10/2016 14:18:00 04/10/2016 23:59:59 CLS Outpatient VIRGIL CORNEJO [facility] CARD NICM,DIASTOLIC DYSFUNCTION,FERMIN,PULM HTN [id number] 03/26/2016 13:14:00 03/26/2016 23:59:59 CLS Outpatient THIAGO LONGO APRN [facility] RAD DYSPNEA,BRONCHIAL ASTHMA [id number] 08/11/2014 15:00:00 08/11/2014 23:59:59 CLS Preadmit PHILLIP MADRIGAL DO [facility] PULM [id number] 06/21/2014 13:00:00 06/21/2014 23:59:59 CLS Outpatient PHILLIP MADRIGAL DO [facility] PULM [id number] 06/09/2014 13:00:00 06/13/2014 00:00:00 DIS Outpatient PHILLIP MADRIGAL DO [facility] PULM [id number] 10/27/2013 07:42:00 10/27/2013 23:59:59 CLS Outpatient PHILLIP MADRIGAL DO [facility] RT [id number] 10/15/2013 13:38:00 10/15/2013 23:59:59 CLS Outpatient VIRGIL CORNEJO [facility] CARD [id number] 10/01/2013 11:46:00 10/01/2013 23:59:59 CLS Outpatient ARTHUR SUAREZ, BELLA Estrada [facility] RAD [id number] 05/25/2013 21:00:00 05/26/2013 06:55:00 DIS Outpatient VIRGIL CORNEJO [facility] SLEEP SNORING [id number] 02/05/2013 08:07:00 02/05/2013 23:59:59 CLS Outpatient [id number] 02/02/2013 10:36:00 02/02/2013 23:59:59 CLS Outpatient [id number] 09/23/2018 11:38:00 Document Registration [id number] 09/22/2018 13:06:00 Document Registration [id number] 12/10/2017 12:49:00 Document Registration [id number] 05/07/2012 06:36:00 Document Registration [id number] 05/06/2012 09:58:00 Document Registration [id number] 01/29/2018 17:31:00 01/29/2018 23:59:00 DIS Outpatient Filippo Levin [id number] 12/24/2017 14:38:00 12/24/2017 23:59:00 DIS Outpatient Filippo Levin [id number] 12/19/2017 13:14:00 12/19/2017 23:59:00 DIS Outpatient Filippo Levin
[2018-09-23] MEDS: FUROSEMIDE 40 MG/4 ML INJ (LASIX) IV SCH (18:50)
--- NOTE | 2018-09-23 19:04 | Cardiology History & Physical ---
HPI-Cardiology Cardiology H&P Date of Admission 09/23/18 Primary Care Physician Filippo Levin MD Attending Physician Suzette Smith MD, MA FACP [facility] Consulting Physician FAITH CC: Shortness of breath HPI: Ms. Hurley is a 68 year old female admitted to 403 from the ED with increasing dyspnea over the course of the last few days, which became progressively worse overnight. She underwent pulse generator change out yesterday d/t device reaching CASH. She reports she has not taken her home medications in 2 day. She reports early this morning her SOB progressed to the point she could not lie in bed even with her CPAP on so she went to the recliner where she was still having difficulty breathing. She reports the SOB has progressed to the point she could not walk across a room with losing her air. She had an appt with Dr. Rose of pulmonary services this morning and they sent her to the ED. She reports she has chest tightness with exertion. No c/o CP, palpitations, syncope or near syncope. No c/o LE swelling. Occ non- productive cough. No c/o fever or chills. She currently reports she is breathing better, but continues to have dyspnea. Review of Systems-Cardiology Review of Systems Constitutional: No chills, No fever Eyes: No vision change Ears/Nose/Throat: No epistaxis, No recent hearing loss Respiratory: As described under HPI Cardiovascular: As described under HPI Gastrointestinal: No constipation, No diarrhea, No nausea, No vomiting Genitourinary: No dysuria, No hematuria Musculoskeletal: muscle pain (back pain) Skin: No dryness, No rash; other (L ACW Drsg in place from pulse generator change out on 09-22-18) Psychiatric/Neurological: No depression, No seizure, No focal weakness, No syncope Hematologic: No bleeding abnormalities All Other Systems Reviewed Negative Unless Noted: Yes [id number] Hx Patient Social History Alcohol Use: Denies Use Recreational Drug Use: No Smoking Status: Never a Smoker Recent Foreign Travel: No Recent Infectious Disease Expo: No Hospitalization with Isolation: Denies Physical Abuse Screen: No Sexual Abuse: No Immunizations Up To Date Date of Influenza Vaccine: Feb 06, 2012 Past Medical History PMH As described under Assessment. Family Medical History Family History: Patient reports no known family medical history. Allergies and Home Medications Allergies Coded Allergies: No Known Drug Allergies (Unverified , 6/24/12) Home Medications Acetaminophen 325 Mg Tablet, 650 MG PO Q6H PRN for PAIN-MILD, (Reported) Albuterol Sulfate 18 Gm Hfa.aer.ad, 2 PUFF INH QID PRN for SHORTNESS OF BREATH, (Reported) Amiodarone HCl 200 Mg Tablet, 200 MG PO DAILY, (Reported) Apixaban 5 Mg Tablet, 5 MG PO BID, (Reported) Cefuroxime Axetil 500 Mg Tablet, 500 MG PO BID Prescribed by: SUZETTE SMITH on 09/22/18 1603 Cetirizine HCl 10 Mg Tablet, 10 MG PO HS, (Reported) Cholecalciferol (Vitamin D3) 1,000 Unit Capsule, 1,000 UNIT PO DAILY, (Reported) Ergocalciferol (Vitamin D2) 50,000 Unit Capsule, 50,000 UNIT PO Th, (Reported) Ferrous Sulfate 325 Mg Tablet, 325 MG PO BID, (Reported) Fluticasone Propionate 16 Gm [place].susp, 2 SPRAYS NS HS, (Reported) Fluticasone/Salmeterol 1 Each Blst.w.dev, 1 PUFF IH BID, (Reported) Furosemide 40 Mg Tablet, 80 MG PO DAILY, (Reported) TAKES 2 (40MG) TABLETS Glucosamine Sulfate 2Kcl 1,000 Mg Tablet, 1,000 MG PO DAILY, (Reported) Lisinopril 10 Mg Tablet, 10 MG PO DAILY, (Reported) Metoprolol Tartrate 50 Mg Tablet, 50 MG PO BID, (Reported) Potassium Chloride 10 Meq Tablet.er, 10 MEQ PO DAILY, (Reported) Patient Home Medication List Home Medication List Reviewed: Yes Physical Exam-Cardiology Physical Exam Vital Signs/I&O 09/23/18 09/23/18 09/23/18 09/23/18 11:17 11:17 11:58 12:03 Temp 98.9 Pulse 70 Resp 16 B/P (MAP) 117/91 (100) Pulse Ox 96 99 99 O2 Delivery Nasal Cannula Nasal Cannula Nasal Cannula Nasal Cannula O2 Flow Rate 3.00 3.00 2.00 2.00 09/23/18 09/23/18 09/23/18 09/23/18 14:05 14:29 14:59 15:00 Temp 99.0 Pulse 73 73 77 Resp 16 18 B/P (MAP) 115/82 (93) 134/63 Pulse Ox 98 93 O2 Delivery Nasal Cannula Nasal Cannula Nasal Cannula O2 Flow Rate 3.00 3.00 3.00 09/23/18 09/23/18 09/23/18 15:04 15:20 15:27 Temp 99.2 Pulse 73 70 Resp 22 B/P (MAP) 161/77 (105) Pulse Ox 95 95 96 O2 Delivery Nasal Cannula Nasal Cannula O2 Flow Rate 3.00 3.00 FiO2 32 Capillary Refill : Less Than 3 Seconds Constitutional: AAO x 3, well-developed, well-nourished HEENT: PERRL, hearing is well preserved, oral hygience is good Neck: No carotid bruit; carotid pulses are 2 + bilaterally Respiratory: No accessory muscle use, No respiratory distress; chest expansion is symmetric, chest is bilaterally symmetric, rhonchi (scattered), other ( diminished bases bilat) Cardiovascular: regular rate-rhythm; No JVD; S1 and S2, systolic murmur Gastrointestinal: No tender; soft, round, audible bowel sounds Rectal: deferred Extremities: no lower extremity edema bilateral Neurologic/Psychiatric: grossly intact, power is 5/5 both on sides Skin: No rash, No ulcerations; other (Dressing to L ACW; mild bruising; no redness or swelling noted) Data Review Labs Laboratory Tests 09/23/18 11:24: White Blood Count 8.5, Red Blood Count 3.79L, Hemoglobin 11.4L, Hematocrit 35, Mean Corpuscular Volume 93, Mean Corpuscular Hemoglobin 30, Mean Corpuscular Hemoglobin Concent 32, Red Cell Distribution Width 14.0, Platelet Count 155, Mean Platelet Volume 10.6H, Neutrophils (%) (Auto) 85H, Lymphocytes (%) (Auto) 6L, Monocytes (%) (Auto) 8, Eosinophils (%) (Auto) 1, Basophils (%) (Auto) 0, Neutrophils # (Auto) 7.3, Lymphocytes # (Auto) 0.5L, Monocytes # (Auto) 0.7, Eosinophils # (Auto) 0.0, Basophils # (Auto) 0.0, Neutrophils % (Manual) 85, Lymphocytes % (Manual) 7, Monocytes % (Manual) 8, Blood Morphology Comment NORMAL, Sodium Level 141, Potassium Level 4.4, Chloride Level 107, Carbon Dioxide Level 21, Anion Gap 13, Blood Urea Nitrogen 21H, Creatinine 1.27, Estimat Glomerular Filtration Rate 51, BUN/Creatinine Ratio 17, Glucose Level 108H, Calcium Level 9.8, Corrected Calcium 9.7, Magnesium Level 2.3, Total Bilirubin 0.9, Aspartate Amino Transf (AST/SGOT) 20, Alanine Aminotransferase ( ALT/SGPT) 18, Alkaline Phosphatase 67, Troponin I < 0.028, C-Reactive Protein High Sensitivity 3.25H, B-Type Natriuretic Peptide 1004.0H, Total Protein 7.7, Albumin 4.1 A/P-Cardiology Assessment/Admission Diagnosis Acute on chronic diastolic CHF Dual chamber ICD, device at CASH on interrogation of 09/21/18. S/P pulse generator change out on 09-22-18. Nonischemic cardiomyopathy with an ejection fraction between 30 and 35%. Most recent echocardiogram of May 2017 shows LVEF 55-60%, grade I diastolic dysfunction, trivial MR and TR. Cardiac cath of October [address] Issa showed angiographically normal coronaries Suspected sarcoidosis, followed by Dr Rose. 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 In July 2012, she received one shock ICD for atrial flutter but has not has not received any since. She has not had any syncope or presyncope. Intolerance to digoxin (results in N/V and poor appetite) Chronic LBBB Diastolic dysfunction of the left ventricle on cardiac catheterization of October 2011. CKD, stage 3 - is being followed by Dr Huff Moderate pulmonary hypertension with pulmonary artery systolic pressure of approximately 60 mmHg on echocardiography of April 2012. Echo of January 2013 showed PASP to be 55mmHg. Echo of October 2013 showed PASP 50-55mmHg. Echo of 04/10/16 shows PASP 30-35 mmHg History of bronchial asthma Chronic anticoagulation with warfarin therapy for stroke prophylaxis. No evidence of MAXIM on sleep study by Dr. Jolly on 05-25-2013 Admission Status: Observation Discussion and Recomendations Acute on chronic diastolic CHF - treat with IV Lasix Continue home medications Monitor lab closely Continue tele Further recs will be based on her hospital course Continue post pulse generator change out oral Abx Clinical Quality Measures DVT/VTE Risk/Contraindication: Risk Factor Score Per Nursin RFS Level Per Nursing on Admit: 4+=Very High SUZETTE SMITH MD FACP FAC [facility]S September 23, 2018 19:04
[2018-09-23 19:10] VITALS: BP 130/58
[2018-09-23] MEDS: RT-ADVAIR HFA 115/21 MCG PER PUFF IH SCH (19:16)
[2018-09-23] MEDS ORDERED: LORATADINE (CLARITIN) 10 MG TAB PO SCH (21:00)
[2018-09-23] MEDS ORDERED: FLUTICASONE NASAL SPRAY (FLONASE) 16 GM BTL NS SCH (21:00)
[2018-09-23] MEDS: meTOprolol TARTRATE 50 MG (LOPRESSOR) TAB PO SCH (22:20)
[2018-09-23] MEDS: CEFDINIR 300 MG (OMNICEF) CAP PO SCH (22:20)
[2018-09-23] MEDS: FERROUS SULF 325 MG (IRON) TAB PO SCH (22:20)
[2018-09-23] MEDS: APIXABAN 5 MG (ELIQUIS) TABLET PO SCH (22:20)
[2018-09-23] MEDS: CATHETER FLUSH 10 ML SYR IV SCH (22:22)
[2018-09-23 22:23] VITALS: BP 140/68
[2018-09-24 00:02] VITALS: BP 120/57
[2018-09-24 03:54] VITALS: BP 125/79
[2018-09-24 06:11] LABS: BASOPHILS % (AUTO) 0 % (0-10); EOSINOPHILS % (AUTO) 1 % (0-10); HEMATOCRIT 30 % (35-52); HEMOGLOBIN 9.7 G/DL (11.5-16.0); LYMPHOCYTES # (AUTO) 0.5 X 10^3 (1.0-4.0); LYMPHOCYTES % (AUTO) 8 % (12-44); MEAN CORPUSCULAR HEMOGLOBIN 30 PG (25-34); MEAN CORPUSCULAR HGB CONC 32 G/DL (32-36); MEAN CORPUSCULAR VOLUME 93 FL (80-99); MEAN PLATELET VOLUME 10.9 FL (7.4-10.4); MONOCYTES # (AUTO) 0.7 X 10^3 (0.0-1.0); MONOCYTES % (AUTO) 12 % (0-12); NEUTROPHILS # (AUTO) 4.6 X 10^3 (1.8-7.8); NEUTROPHILS % (AUTO) 80 % (42-75); PLATELET COUNT 126 10^3/uL (130-400); RED CELL DISTRIBUTION WIDTH 13.6 % (10.0-14.5); WHITE BLOOD COUNT 5.8 10^3/uL (4.3-11.0)
[2018-09-24 06:29] LABS: ALBUMIN 3.4 GM/DL (3.2-4.5); BILIRUBIN,TOTAL 1.2 MG/DL (0.1-1.0); CALCIUM 8.8 MG/DL (8.5-10.1); CREATININE SERUM 1.38 MG/DL (0.60-1.30); POTASSIUM 3.6 MMOL/L (3.6-5.0); TOTAL PROTEIN 6.3 GM/DL (6.4-8.2)
[2018-09-24] MEDS: FUROSEMIDE 40 MG/4 ML INJ (LASIX) IV SCH (06:43)
[2018-09-24] MEDS: CATHETER FLUSH 10 ML SYR IV SCH (06:44)
[2018-09-24] MEDS: RT-ALBUTEROL/IPRATROPIUM 3 ML (DUONEB) VIAL INH SCH ×2 (06:47→10:03)
[2018-09-24] MEDS: RT-ADVAIR HFA 115/21 MCG PER PUFF IH SCH (06:52)
[2018-09-24 08:00] VITALS: BP 132/62
[2018-09-24] MEDS ORDERED: lisINopril 10 MG (PRINIVIL) TABLET PO SCH (09:00)
[2018-09-24] MEDS ORDERED: PANTOPRAZOLE 40 MG (PROTONIX) TAB PO SCH (09:00)
[2018-09-24] MEDS ORDERED: VITAMIN D3 1,000 UNITS (CHOLECALCIFEROL) TABLET PO SCH (09:00)
[2018-09-24] MEDS ORDERED: AMIODARONE 200 MG (CORDARONE) TAB PO SCH (09:00)
[2018-09-24] MEDS ORDERED: KCL 10 MEQ TAB (MICRO K) PO SCH (09:00)
--- NOTE | 2018-09-24 09:05 | Progress Note-Cardiology ---
Cardiology SOAP Progress Note Subjective: Sitting up on the side of the bed. Feels SOB is much better today. No c/o CP or palpitations. Objective: I&O/Vital Signs 09/23/18 09/24/18 09/24/18 09/24/18 22:23 00:02 01:00 03:54 Temp 99.1 98.6 Pulse 76 71 69 68 Resp 18 18 B/P (MAP) 140/68 (92) 120/57 (78) 125/79 (94) Pulse Ox 97 96 09/24/18 09/24/18 09/24/18 09/24/18 04:03 06:47 06:52 07:00 Pulse 69 Pulse Ox 95 96 95 O2 Delivery Nasal Cannula Nasal Cannula O2 Flow Rate 3.00 3.00 2.00 09/24/18 08:00 Temp 98.0 Pulse 70 Resp 16 B/P (MAP) 132/62 (85) Pulse Ox 95 O2 Delivery Nasal Cannula O2 Flow Rate 3.00 09/24/18 00:00 Intake Total 200 ml Output Total 700 ml Balance -500 ml Weight (Pounds): 214 Weight (Ounces): 0.8 Weight (Calculated Kilograms): 97.605184 Constitutional: AAO x 3, well-developed, well-nourished Respiratory: No accessory muscle use, No respiratory distress; chest expansion is symmetric, chest is bilaterally symmetric, rhonchi (scattered), other ( diminished bases bilat) Cardiovascular: regular rate-rhythm; No JVD; S1 and S2, systolic murmur Gastrointestional: No tender; soft, round, audible bowel sounds Extremities: no lower extremity edema bilateral Neurologic/Psychiatric: grossly intact, power is 5/5 both on sides Skin: No rash, No ulcerations; other (Dressing to L ACW; mild bruising; no redness or swelling noted) Results/Procedures: Labs Laboratory Tests 09/23/18 11:24: White Blood Count 8.5, Red Blood Count 3.79L, Hemoglobin 11.4L, Hematocrit 35, Mean Corpuscular Volume 93, Mean Corpuscular Hemoglobin 30, Mean Corpuscular Hemoglobin Concent 32, Red Cell Distribution Width 14.0, Platelet Count 155, Mean Platelet Volume 10.6H, Neutrophils (%) (Auto) 85H, Lymphocytes (%) (Auto) 6L, Monocytes (%) (Auto) 8, Eosinophils (%) (Auto) 1, Basophils (%) (Auto) 0, Neutrophils # (Auto) 7.3, Lymphocytes # (Auto) 0.5L, Monocytes # (Auto) 0.7, Eosinophils # (Auto) 0.0, Basophils # (Auto) 0.0, Neutrophils % (Manual) 85, Lymphocytes % (Manual) 7, Monocytes % (Manual) 8, Blood Morphology Comment NORMAL, Sodium Level 141, Potassium Level 4.4, Chloride Level 107, Carbon Dioxide Level 21, Anion Gap 13, Blood Urea Nitrogen 21H, Creatinine 1.27, Estimat Glomerular Filtration Rate 51, BUN/Creatinine Ratio 17, Glucose Level 108H, Calcium Level 9.8, Corrected Calcium 9.7, Magnesium Level 2.3, Total Bilirubin 0.9, Aspartate Amino Transf (AST/SGOT) 20, Alanine Aminotransferase ( ALT/SGPT) 18, Alkaline Phosphatase 67, Troponin I < 0.028, C-Reactive Protein High Sensitivity 3.25H, B-Type Natriuretic Peptide 1004.0H, Total Protein 7.7, Albumin 4.1 09/24/18 05:45: White Blood Count 5.8, Red Blood Count 3.24L, Hemoglobin 9.7L, Hematocrit 30L, Mean Corpuscular Volume 93, Mean Corpuscular Hemoglobin 30, Mean Corpuscular Hemoglobin Concent 32, Red Cell Distribution Width 13.6, Platelet Count 126L, Mean Platelet Volume 10.9H, Neutrophils (%) (Auto) 80H, Lymphocytes (%) (Auto) 8L, Monocytes (%) (Auto) 12, Eosinophils (%) (Auto) 1, Basophils (%) (Auto) 0, Neutrophils # (Auto) 4.6, Lymphocytes # (Auto) 0.5L, Monocytes # (Auto) 0.7, Eosinophils # (Auto) 0.0, Basophils # (Auto) 0.0, Sodium Level 139, Potassium Level 3.6, Chloride Level 105, Carbon Dioxide Level 22, Anion Gap 12, Blood Urea Nitrogen 23H, Creatinine 1.38H, Estimat Glomerular Filtration Rate 46, BUN/ Creatinine Ratio 17, Glucose Level 108H, Calcium Level 8.8, Corrected Calcium 9.3, Total Bilirubin 1.2H, Aspartate Amino Transf (AST/SGOT) 13, Alanine Aminotransferase (ALT/SGPT) 15, Alkaline Phosphatase 49, Total Protein 6.3L, Albumin 3.4 A/P: Assessment: Acute on chronic diastolic CHF, improved Dual chamber ICD, device at CASH on interrogation of 09/21/18. S/P pulse generator change out on 09-22-18. Nonischemic cardiomyopathy with an ejection fraction between 30 and 35%. Most recent echocardiogram of May 2017 shows LVEF 55-60%, grade I diastolic dysfunction, trivial MR and TR. Cardiac cath of October [address] Issa showed angiographically normal coronaries Suspected sarcoidosis, followed by Dr Rose. 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 In July 2012, she received one shock ICD for atrial flutter but has not has not received any since. She has not had any syncope or presyncope. Intolerance to digoxin (results in N/V and poor appetite) Chronic LBBB Diastolic dysfunction of the left ventricle on cardiac catheterization of October 2011. CKD, stage 3 - is being followed by Dr Huff Moderate pulmonary hypertension with pulmonary artery systolic pressure of approximately 60 mmHg on echocardiography of April 2012. Echo of January 2013 showed PASP to be 55mmHg. Echo of October 2013 showed PASP 50-55mmHg. Echo of 04/10/16 shows PASP 30-35 mmHg History of bronchial asthma Chronic anticoagulation with warfarin therapy for stroke prophylaxis. No evidence of MAXIM on sleep study by Dr. Jolly on 05-25-2013 Plan: Acute on chronic diastolic CHF - clinically improved OK to discharge home today Increase home dose of diuretics Out pt f/u in a week Lab in a week Physician Assessment Physician Assessment Shortness of breath improved No cp or palp or syncope Some malaise and weakness, but better No discomfort at site of device implant in the L prepectoral area Lungs: good air entry, a few basal coarse crackles Cor: reg Ext: no c/c. Mild leg edema A&R * As documented in our note above that I updated (italics) and as noted below * I discussed her CV issues with. We also discussed risk factor mod and med changed during this hosp * We advise close clinical f/u for now * Repeat labs on 09/28/18 VIRGIL CORNEJO September 24, 2018 09:05 HENRY SMITH MD FACP FACC CCDS September 24, 2018 09:51
[2018-09-24] MEDS ORDERED: POTA10TA36 PO (09:13)
[2018-09-24] MEDS ORDERED: FURO-124 PO (09:13)
[2018-09-24] MEDS: meTOprolol TARTRATE 50 MG (LOPRESSOR) TAB PO SCH (09:48)
[2018-09-24] MEDS: APIXABAN 5 MG (ELIQUIS) TABLET PO SCH (09:49)
[2018-09-24] MEDS: FERROUS SULF 325 MG (IRON) TAB PO SCH (09:49)
[2018-09-24] MEDS: CEFDINIR 300 MG (OMNICEF) CAP PO SCH (09:49)
[2018-09-24 12:00] VITALS: BP 132/62
--- NOTE | 2018-09-25 16:34 | Physician Query-Final Dx ---
JOSE FRANCISCO CLEARY 09/25/18 1634: Final Diagnosis Give Final Diagnosis Please give Final Diagnosis HENRY SMITH MD [facility] 09/26/18 1554: Final Diagnosis Give Final Diagnosis Acute on chronic diastolic CHF, improved Dual chamber ICD, device at CASH on interrogation of 09/21/18. S/P pulse generator change out on 09-22-18. Nonischemic cardiomyopathy with an ejection fraction between 30 and 35%. Most recent echocardiogram of May 2017 shows LVEF 55-60%, grade I diastolic dysfunction, trivial MR and TR. Cardiac cath of October [address] Issa showed angiographically normal coronaries Suspected sarcoidosis, followed by Dr Rose. 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 In July 2012, she received one shock ICD for atrial flutter but has not has not received any since. She has not had any syncope or presyncope. Intolerance to digoxin (results in N/V and poor appetite) Chronic LBBB Diastolic dysfunction of the left ventricle on cardiac catheterization of October 2011. CKD, stage 3 - is being followed by Dr Huff Moderate pulmonary hypertension with pulmonary artery systolic pressure of a pproximately 60 mmHg on echocardiography of April 2012. Echo of January 2013 showed PASP to be 55mmHg. Echo of October 2013 showed PASP 50-55mmHg. Echo of 04/10/16 shows PASP 30-35 mmHg History of bronchial asthma Chronic anticoagulation with warfarin therapy for stroke prophylaxis. No evidence of MAXIM on sleep study by Dr. Jolly on 05-25-2013 JOSE FRANCISCO CLEARY September 25, 2018 16:34 HENRY SMITH MD [facility] September 26, 2018 15:54
--- OUTSIDE RECORDS SUMMARY | 2018-09-30 17:55 | XMS REPORT | Continuity of Care Document ---
Author Organization Unknown Address Unknown Allergies Active Description Code Type Severity Reaction Onset Reported/Identified Relationship to Patient Clinical Status Yes NO KNOWN DRUG ALLERGIES UNKNOWN NO KNOWN DRUG ALLERG Yes No Known Drug Allergies [id number] Drug Allergy Unknown N/A 11/03/2011 Medications There [...] PHILLIP M Ot 786.09 06/16/2014 KAITLIN DO, PHILLPI M Ot V57.89 06/16/2014 KAITLIN DO, PHILLIP [...] V72.63 06/20/2014 Ot V72.81 06/20/2014 BAIMAVIRGIL L EPIC INTERFACE ANALYST Ot 397.0 06/20/2014 BAIMA, VIRGIL L EPIC INTERFACE ANALYST Ot 424.0 06/20/2014 BAIMAPIERREVIRGIL L EPIC INTERFACE ANALYST Ot 425.4 06/20/2014 ARTHUR SUAREZ, BELLA S [...] KAITLINPHILLIP ALEMAN DO M Ot 493.90 06/20/2014 KAITLINPHILLIP ALEMAN DO M Ot 786.09 06/20/2014 PHILLIP [...] APRN Ot J98.11 ATELECTASIS 03/27/2016 THIAGO LONGO SHOE PULLER Ot K80.20 CALCULUS OF GALLBLADDER W/O CHOLECYSTITI 03/27/2016 THIAGO LONGO SHOE PULLER Ot R06.00 DYSPNEA, UNSPECIFIED 03/27/2016 THIAGO LONGO SHOE PULLER Ot R59.0 LOCALIZED ENLARGED LYMPH NODES 04/11/2016 BAIMA, VIRGIL L EPIC INTERFACE ANALYST Ot I27.0 PRIMARY PULMONARY HYPERTENSION 04/11/2016 BAIMA, VIRGIL L EPIC INTERFACE ANALYST Ot I42.9 CARDIOMYOPATHY, UNSPECIFIED 04/11/2016 BAIMA, VIRGIL L EPIC INTERFACE ANALYST Ot I51.9 HEART DISEASE, UNSPECIFIED 04/11/2016 BAIMA, VIRGIL L EPIC INTERFACE ANALYST Ot R06.09 OTHER FORMS OF DYSPNEA 04/12/2016 BAIMA, VIRGIL L EPIC INTERFACE ANALYST Ot I27.0 PRIMARY PULMONARY HYPERTENSION 04/12/2016 BAIMA, VIRGIL L EPIC INTERFACE ANALYST Ot I42.9 CARDIOMYOPATHY, UNSPECIFIED 04/12/2016 BAIMA, VIRGIL L EPIC INTERFACE ANALYST Ot I51.9 HEART DISEASE, UNSPECIFIED 04/12/2016 BAIMA, VIRGIL L EPIC INTERFACE ANALYST Ot R06.09 OTHER FORMS OF DYSPNEA 04/24/2016 THIAGO LONGO SHOE PULLER Ot I51.7 CARDIOMEGALY 04/24/2016 THIAGO LONGO APRN Ot J45.909 UNSPECIFIED ASTHMA, UNCOMPLICATED 04/24/2016 THIAGO LONGO APRN Ot J98.11 ATELECTASIS 04/24/2016 THIAGO LONGO APRN Ot K80.20 CALCULUS OF GALLBLADDER W/O CHOLECYSTITI 04/24/2016 THIAGO LONGO SHOE PULLER Ot R06.00 DYSPNEA, UNSPECIFIED 04/24/2016 THIAGO LONGO SHOE PULLER Ot R59.0 LOCALIZED ENLARGED LYMPH NODES 05/10/2016 BAIMA, VIRGIL L EPIC INTERFACE ANALYST Ot I27.0 PRIMARY PULMONARY HYPERTENSION 05/10/2016 BAIMA, VIRGIL L EPIC INTERFACE ANALYST Ot I42.9 CARDIOMYOPATHY, UNSPECIFIED 05/10/2016 BAIMA, VIRGIL L EPIC INTERFACE ANALYST Ot I51.9 HEART DISEASE, UNSPECIFIED 05/10/2016 BAIMA, VIRGIL L EPIC INTERFACE ANALYST Ot R06.09 OTHER FORMS OF DYSPNEA 04/10/2017 THIAGO LONGO SHOE PULLER Ot I51.7 CARDIOMEGALY 04/10/2017 THIAGO LONGO SHOE PULLER Ot J45.909 UNSPECIFIED ASTHMA, UNCOMPLICATED 04/10/2017 THIAGO LONGO SHOE PULLER Ot J98.11 ATELECTASIS 04/10/2017 THIAGO LONGO SHOE PULLER Ot K80.20 CALCULUS OF GALLBLADDER W/O CHOLECYSTITI 04/10/2017 THIAGO LONGO SHOE PULLER Ot R06.00 DYSPNEA, UNSPECIFIED 04/10/2017 THIAGO LONGO SHOE PULLER Ot R59.0 LOCALIZED ENLARGED LYMPH NODES 04/10/2017 CLEMENTEVIRGIL Omaira EPIC INTERFACE ANALYST Ot I27.0 PRIMARY PULMONARY HYPERTENSION 04/10/2017 PIERRE CORNEJOHER Omaira EPIC INTERFACE ANALYST Ot I42.9 CARDIOMYOPATHY, UNSPECIFIED 04/10/2017 BAIVIRGIL HELMS L EPIC INTERFACE ANALYST Ot I51.9 HEART DISEASE, UNSPECIFIED 04/10/2017 ANJALIVIRGIL HELMS EPIC INTERFACE ANALYST Ot R06.09 OTHER FORMS OF DYSPNEA 04/17/2017 [...] I42.0 DILATED CARDIOMYOPATHY 06/25/2017 [facility] I48.92 UNSPECIFIED ATRIAL FLUTTER 06/25/2017 SARAH SUAREZ [facility], ALI FACP CCDS Ot 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 06/25/2017 SARAH SUAREZ [facility], ALI FACP CCDS Ot N18.3 CHRONIC KIDNEY DISEASE, STAGE 3 (MODERAT 06/25/2017 SARAH SUAREZ [facility], ALI FACP CCDS Ot R91.1 SOLITARY PULMONARY [...] J45.901 UNSPECIFIED ASTHMA WITH (ACUTE) EXACERBA 12/01/2017 THAIGO LONGO APRN Ot I51.7 CARDIOMEGALY 12/01/2017 THIAGO LONGO APRN Ot J45.909 UNSPECIFIED ASTHMA, UNCOMPLICATED 12/01/2017 THIAGO LONGO APRN Ot J98.11 ATELECTASIS 12/01/2017 THIAGO LONGO APRN Ot K80.20 CALCULUS OF GALLBLADDER W/O CHOLECYSTITI 12/01/2017 THIAGO LONGO APRN Ot R06.00 DYSPNEA, UNSPECIFIED 12/01/2017 THIAGO LONGO APRN Ot R59.0 LOCALIZED ENLARGED LYMPH NODES 12/01/2017 CLEMENTEVIRGIL Omaira EPIC INTERFACE ANALYST Ot I27.0 PRIMARY PULMONARY HYPERTENSION 12/01/2017 ANJALIANALIA VIRGIL Omaira EPIC INTERFACE ANALYST Ot I42.9 CARDIOMYOPATHY, UNSPECIFIED 12/01/2017 ANJALIANALIA VIRGIL L EPIC INTERFACE ANALYST Ot I51.9 HEART DISEASE, UNSPECIFIED 12/01/2017 CLEMENTEVIRGIL EPIC INTERFACE ANALYST Ot R06.09 OTHER FORMS OF DYSPNEA 12/01/2017 [...] 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 12/01/2017 ASRAH SUAREZ FACC, ALI FACP CCDS Ot N18.3 [...] (ACUTE) EXACERBA 12/01/2017 THIAGO LONGO APRN Ot J45.901 UNSPECIFIED [...] BREATH 12/05/2017 JERI GUTIERRES MD Ot 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/ASSISTANT FOREMAN (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 OF ANTICOAGULANT 12/05/2017 JERI GUTIERRES MD Ot Z79.51 LONGTERM (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 OF INHALED STERO 12/05/2017 JERI GUTIERRES MD Ot Z90.710 ACQUIRED ABSENCE OF BOTH CERVIX AND UTER 12/08/2017 JERI GUTIERRES MD Ot I48.91 UNSPECIFIED ATRIAL FIBRILLATION 12/08/2017 JERI GUTIERRES MD Ot I50.9 HEART FAILURE, UNSPECIFIED 12/08/2017 JERI GUTIERRES MD Ot J44.1 CHRONIC OBSTRUCTIVE PULMONARY DISEASE W 12/08/2017 EJRI GUTIERRES MD Ot R06.02 SHORTNESS OF BREATH 12/08/2017 JERI GUTIERRES MD Ot Z79.01 LONGTERM (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 OF ANTICOAGULANT 12/08/2017 JERI GUTIERRES MD Ot Z79.51 OPERATOR/ASSISTANT FOREMAN (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 OF INHALED STERO 12/08/2017 JERI GUTIERRES MD Ot Z90.710 ACQUIRED ABSENCE OF BOTH CERVIX AND UTER 12/10/2017 Ot I48.91 UNSPECIFIED ATRIAL FIBRILLATION 12/10/2017 Ot I50.9 HEART FAILURE, UNSPECIFIED 12/10/2017 Ot J18.1 LOBAR PNEUMONIA, UNSPECIFIED ORGANISM 12/10/2017 Ot J44.9 CHRONIC OBSTRUCTIVE PULMONARY DISEASE, U 12/10/2017 Ot R06.02 SHORTNESS OF BREATH 12/10/2017 Ot 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/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 FOREMAN (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 OF ANTICOAGULANT 12/10/2017 Ot Z90.710 ACQUIRED ABSENCE OF BOTH CERVIX AND UTER 12/21/2017 THIAGO LONGO APRN Ot D86.0 SARCOIDOSIS OF LUNG 12/21/2017 THIAGO LONGO APRN Ot G47.10 HYPERSOMNIA, UNSPECIFIED 12/21/2017 THIAGO LONGO APRN Ot G47.50 PARASOMNIA, UNSPECIFIED 12/21/2017 THIAGO LONGO APRN Ot J45.909 UNSPECIFIED ASTHMA, UNCOMPLICATED 12/21/2017 THIAGO LONGO APRN Ot R09.02 HYPOXEMIA 12/21/2017 THIAGO LONGO SHOE PULLER Ot R29.818 OTHER SYMPTOMS AND SIGNS INVOLVING [...] J18.9 PNEUMONIA, UNSPECIFIED ORGANISM 01/01/2018 THIAGO LONGO SHOE PULLER Ot J45.901 UNSPECIFIED ASTHMA WITH (ACUTE) EXACERBA 01/01/2018 THIAGO LONGO SHOE PULLER Ot M79.89 OTHER SPECIFIED SOFT TISSUE DISORDERS 01/01/2018 THIAGO LONGO APRN Ot R91.8 OTHER NONSPECIFIC ABNORMAL FINDING OF 01/01/2018 THIAGO LONGO SHOE PULLER Ot J45.901 UNSPECIFIED ASTHMA WITH (ACUTE) EXACERBA 01/08/2018 THIAGO LONGO SHOE PULLER Ot J45.901 UNSPECIFIED ASTHMA WITH (ACUTE) EXACERBA 01/08/2018 THIAGO LONGO SHOE PULLER Ot M79.89 OTHER SPECIFIED SOFT TISSUE DISORDERS 01/08/2018 THIAGO LONGO SHOE PULLER Ot R91.8 OTHER NONSPECIFIC ABNORMAL FINDING OF [...] BREATH 03/18/2018 JERI GUTIERRES MD Ot Z79.01 LONGTERM (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 OF ANTICOAGULANT 03/18/2018 JERI GUTIERRES MD Ot Z79.51 OPERATOR/ASSISTANT FOREMAN (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 OF INHALED STERO 03/18/2018 JERI GUTIERRES MD Ot Z90.710 ACQUIRED ABSENCE OF BOTH CERVIX AND UTER 09/24/2018 SARAH SUAREZ FACC, ALI FACP CCDS Ot I27.20 PULMONARY HYPERTENSION, UNSPECIFIED 09/24/2018 SARAH SUAREZ FACC, ALI FACP CCDS Ot I42.9 CARDIOMYOPATHY, UNSPECIFIED 09/24/2018 SARAH SUAREZ FACC, ALI FACP CCDS Ot I44.7 LEFT BUNDLE-BRANCH BLOCK, UNSPECIFIED 09/24/2018 SARAH SUAREZ FACC, ALI FACP CCDS Ot I48.92 UNSPECIFIED ATRIAL FLUTTER 09/24/2018 SARAH SUAREZ FACC, ALI FACP CCDS Ot I50.33 ACUTE ON CHRONIC DIASTOLIC (CONGESTIVE) 09/24/2018 SARAH SUAREZ FACC, ALI FACP CCDS Ot J45.909 UNSPECIFIED ASTHMA, UNCOMPLICATED 09/24/2018 SARAH SUAREZ FACC, ALI FACP CCDS Ot N18.3 CHRONIC KIDNEY DISEASE, STAGE 3 (MODERAT 09/24/2018 SARAH SUAREZ FACC, ALI FACP CCDS Ot Z79.01 LONGTERM (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 OF ANTICOAGULANT 09/24/2018 SARAH SUAREZ FACC, ALI FACP CCDS Ot Z95.810 PRESENCE OF AUTOMATIC (IMPLANTABLE) CARD 09/29/2018 SARAH SUAREZ FACC, ALI FACP CCDS Ot G47.33 OBSTRUCTIVE SLEEP APNEA (ADULT) (PEDIATR 09/29/2018 SARAH SUAREZ FACC, ALI FACP CCDS Ot I27.20 PULMONARY HYPERTENSION, UNSPECIFIED 09/29/2018 SARAH SUAREZ FACC, ALI FACP CCDS Ot I42.9 CARDIOMYOPATHY, UNSPECIFIED 09/29/2018 SARAH SUAREZ FACC, ALI FACP CCDS Ot I44.7 LEFT BUNDLE-BRANCH BLOCK, UNSPECIFIED 09/29/2018 SARAH SUAREZ FACC, ALI FACP CCDS Ot I48.92 UNSPECIFIED ATRIAL FLUTTER 09/29/2018 SARAH SUAREZ FACC, ALI FACP CCDS Ot 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 Results Test [...] Automated erythrocyte mean corpuscular hemoglobin concentration measurement (mass/volume) 33 g/dL 32-36 Automated erythrocyte distribution width ratio 14.9 % 10.0- 14.5 Automated blood platelet count (count/volume) 224 10*3/uL [...] Blood monocytes automated count (number/volume) 0.6 10*3 0.0- 1.0 Automated eosinophil count 0.1 10*3/uL 0.0-0.3 Automated blood basophil count (count/volume) 0.0 10*3/uL 0.0-0.1 Complete urinalysis with reflex to culture - 07/29/17 13:05 Urine color determination YELLOW NRG Urine clarity determination CLEAR NRG Urine pH measurement by test strip 6 5-9 Specific gravity of urine by test strip 1.010 1.016-1.022 Urine protein assay by test strip, semi-quantitative [...] sediment leukocyte count by microscopy (number/high power field) NONE NRG Bacteria detection in urine sediment [...] (Na, K, Cl, CO2, BUN, Cr, glucose,Ca, phos, alb) - 07/29/17 13:05 Serum or plasma [...] 6-12 Urine creatinine measurement (mass/volume) 29 mg/dL 30-125 Urine protein/creatinine mass ratio TNP NRG Serum iron and total iron binding capacity panel - 07/29/17 13:05 Serum or plasma iron measurement (mass/volume) 61 % 35-180 Total iron binding capacity and transferrin saturation measurement 13 % 15-50 Iron binding capacity [mass/volume] in serum or plasma 455 % 280-380 UIBC (unsaturated iron binding capacity) 394 % 55-450 Serum or plasma ferritin measurement (mass/volume) 15.0 % 15.0-150.0 Serum or plasma intact pararthyroid hormone measurement (mass/volume) - 07/29/17 13:05 Serum or plasma intact parathyroid hormone [...] blood base excess by calculation -0.4 mmol/L -2.5-2.5 Arterial blood oxygen saturation measurement 88 % 94-100 * Inhaled oxygen flow rate 2L NRG Arterial blood pH measurement with patient temperature correction 7.39 7.37-7.43 Arterial blood carbon dioxide, total measurement (moles/volume) 25.1 mmol/L 21.0-31.0 Body site LT RAD NRG Assessment of wrist artery patency prior to arterial puncture YES-POS NRG Setting of ventilation mode NO NRG [...] Automated erythrocyte mean corpuscular hemoglobin concentration measurement (mass/volume) 33 g/dL 32-36 Automated erythrocyte distribution width ratio 16.4 % 10.0- 14.5 Automated blood platelet count (count/volume) 197 10*3/uL [...] Blood monocytes automated count (number/volume) 0.3 10*3 0.0- 1.0 Automated eosinophil count 0.0 10*3/uL 0.0-0.3 Automated blood basophil count (count/volume) 0.0 10*3/uL 0.0-0.1 Blood manual differential performed detection - 12/05/17 13:45 Blood monocytes/100 leukocytes 1 % NRG Manual blood segmented neutrophils/100 leukocytes 94 % NRG Blood band neutrophils/100 leukocytes 0 % NRG Manual blood lymphocytes/100 leukocytes 5 % NRG Manual eosinophils/100 leukocytes in nose 0 % NRG Manual blood basophils/100 leukocytes 0 % NRG Blood erythrocyte morphology finding identification NORMAL NRG Comprehensive metabolic panel - 12/05/17 13:45 Serum [...] Serum or plasma aspartate aminotransferase measurement (enzymatic activity/volume) 65 U/L 5-34 Serum or plasma alanine aminotransferase measurement (enzymatic activity/volume) 119 U/L 0-55 Serum or plasma protein measurement (mass/volume) 6.4 g/dL 6.4-8.2 Serum or plasma albumin measurement (mass/volume) 3.7 g/dL 3.2-4.5 Serum or plasma lithium measurement (moles/volume) - 12/05/17 13:45 BNP level 2508.6 pg/mL <100.0 Serum or plasma troponin i.cardiac measurement (mass/volume) - 12/05/17 13:45 Serum or plasma troponin i.cardiac measurement (mass/volume) < ng/mL <0.30 Complete blood count (CBC) with automated [...] Automated erythrocyte mean corpuscular hemoglobin concentration measurement (mass/volume) 33 g/dL 32-36 Automated erythrocyte distribution width ratio 16.9 % 10.0- 14.5 Automated blood platelet count (count/volume) 194 10*3/uL [...] Blood monocytes automated count (number/volume) 0.7 10*3 0.0- 1.0 Automated eosinophil count 0.0 10*3/uL 0.0-0.3 Automated [...] Serum or plasma aspartate aminotransferase measurement (enzymatic activity/volume) 79 U/L 5-34 Serum or plasma alanine aminotransferase measurement (enzymatic activity/volume) 180 U/L 0-55 Serum or plasma protein measurement (mass/volume) 6.5 g/dL 6.4-8.2 Serum or plasma albumin measurement (mass/volume) 3.6 g/dL 3.2-4.5 Serum or plasma lithium measurement (moles/volume) - 12/10/17 12:13 BNP level 2468.5 pg/mL <100.0 Serum or plasma troponin i.cardiac measurement (mass/volume) - 12/10/17 12:13 Serum or plasma troponin i.cardiac measurement (mass/volume) < ng/mL <0.30 BNP - 12/19/17 11:45 BNP 2490.00 [...] Automated erythrocyte mean corpuscular hemoglobin concentration measurement (mass/volume) 32 g/dL 32-36 Automated erythrocyte distribution width ratio 13.7 % 10.0- 14.5 Automated blood platelet count (count/volume) 161 10*3/uL [...] Serum or plasma aspartate aminotransferase measurement (enzymatic activity/volume) 18 U/L 5-34 Serum or plasma alanine aminotransferase measurement (enzymatic activity/volume) 22 U/L 0-55 Serum or plasma protein measurement (mass/volume) 7.5 g/dL 6.4-8.2 Serum or plasma albumin measurement (mass/volume) 4.1 g/dL 3.2-4.5 CALCIUM CORRECTED 9.3 mg/dL 8.5-10.1 Lipid 1996 panel - 09/22/18 12:58 Serum or plasma triglyceride measurement (mass/volume) 86 mg/dL <150 Serum or plasma cholesterol measurement (mass/volume) 200 mg/dL < 200 Serum or plasma cholesterol in HDL measurement (mass/volume) 61 mg/dL 40-60 Cholesterol in LDL [mass/volume] in serum or plasma by direct assay 125 mg/dL 1-129 Serum or plasma cholesterol in VLDL measurement (mass/volume) 17 mg/dL 5-40 Methicillin resistant Staphylococcus aureus (MRSA) screening culture - 09/22/18 12:58 Methicillin resistant Staphylococcus aureus (MRSA) screening culture NEG [facility] Complete blood count (CBC) with automated white [...] Automated erythrocyte mean corpuscular hemoglobin concentration measurement (mass/volume) 32 g/dL 32-36 Automated erythrocyte distribution width ratio 14.0 % 10.0- 14.5 Automated blood platelet count (count/volume) 155 10*3/uL [...] Blood monocytes automated count (number/volume) 0.7 10*3 0.0- 1.0 Automated eosinophil count 0.0 10*3/uL 0.0-0.3 Automated [...] Serum or plasma aspartate aminotransferase measurement (enzymatic activity/volume) 20 U/L 5-34 Serum or plasma alanine aminotransferase measurement (enzymatic activity/volume) 18 U/L 0-55 Serum or plasma protein measurement (mass/volume) 7.7 g/dL 6.4-8.2 Serum or plasma albumin measurement (mass/volume) 4.1 g/dL 3.2-4.5 CALCIUM CORRECTED 9.7 mg/dL 8.5-10.1 Magnesium - 09/23/18 11:24 Magnesium 2.3 mg/dL 1.8-2.4 Serum or plasma troponin i.cardiac measurement (mass/volume) - 09/23/18 11:24 Serum or plasma troponin i.cardiac measurement (mass/volume) < ng/mL <0.028 Serum or plasma C reactive protein measurement (mass/volume) - 09/23/18 11:24 Serum or plasma C reactive protein measurement (mass/volume) 3.25 mg/dL 0.00-0.50 Blood manual differential performed detection - 09/23/18 11:24 Blood monocytes/100 leukocytes 8 % NRG Manual blood segmented neutrophils/100 leukocytes 85 % NRG Manual blood lymphocytes/100 leukocytes 7 % NRG Blood erythrocyte morphology finding identification NORMAL NRG Serum or plasma lithium measurement (moles/volume) - 09/23/18 11:24 BNP level 1004.0 pg/mL <100.0 Complete blood count (CBC) with automated white blood cell (WBC) differential - 09/24/18 05:45 Blood leukocytes automated count (number/volume) 5.8 10*3/uL 4.3-11.0 Blood erythrocytes automated count (number/volume) 3.24 10*6/uL 4.35-5.85 Venous blood hemoglobin measurement (mass/volume) 9.7 g/dL 11.5-16.0 Blood hematocrit (volume fraction) 30 % 35-52 Automated erythrocyte mean corpuscular volume 93 [foz_us] 80-99 Automated erythrocyte mean corpuscular hemoglobin (mass per erythrocyte) 30 pg 25-34 Automated erythrocyte mean corpuscular hemoglobin concentration measurement (mass/volume) 32 g/dL 32-36 Automated erythrocyte distribution width ratio 13.6 % 10.0- 14.5 Automated blood platelet count (count/volume) 126 10*3/uL 130-400 Automated blood platelet mean volume measurement 10.9 [foz_us] 7.4-10.4 Automated blood neutrophils/100 leukocytes 80 % 42-75 Automated blood lymphocytes/100 leukocytes 8 % 12-44 Blood monocytes/100 leukocytes 12 % 0-12 Automated blood eosinophils/100 leukocytes 1 % 0-10 Automated blood basophils/100 leukocytes 0 % 0-10 Blood neutrophils automated count (number/volume) 4.6 10*3 1.8-7.8 Blood lymphocytes automated count (number/volume) 0.5 10*3 1.0-4.0 Blood monocytes automated count (number/volume) 0.7 10*3 0.0- 1.0 Automated eosinophil count 0.0 10*3/uL 0.0-0.3 Automated blood basophil count (count/volume) 0.0 10*3/uL 0.0-0.1 Comprehensive metabolic panel - 09/24/18 05:45 Serum or plasma sodium measurement (moles/volume) 139 mmol/L 135-145 Serum or plasma potassium measurement (moles/volume) 3.6 mmol/L 3.6-5.0 Serum or plasma chloride measurement (moles/volume) 105 mmol/L 98-107 Carbon dioxide 22 mmol/L 21-32 Serum or plasma anion gap determination (moles/volume) 12 mmol/L 5-14 Serum or plasma urea nitrogen measurement (mass/volume) 23 mg/dL 7-18 Serum or plasma creatinine measurement (mass/volume) 1.38 mg/dL 0.60-1.30 Serum or plasma urea nitrogen/creatinine mass ratio 17 NRG Serum or plasma creatinine measurement with calculation of estimated glomerular filtration rate 46 NRG Serum or plasma glucose measurement (mass/volume) 108 mg/dL 70-105 Serum or plasma calcium measurement (mass/volume) 8.8 mg/dL 8.5-10.1 Serum or plasma total bilirubin measurement (mass/volume) 1.2 mg/dL 0.1-1.0 Serum or plasma alkaline phosphatase measurement (enzymatic activity/volume) 49 U/L 40-136 Serum or plasma aspartate aminotransferase measurement (enzymatic activity/volume) 13 U/L 5-34 Serum or plasma alanine aminotransferase measurement (enzymatic activity/volume) 15 U/L 0-55 Serum or plasma protein measurement (mass/volume) 6.3 g/dL 6.4-8.2 Serum or plasma albumin measurement (mass/volume) 3.4 g/dL 3.2-4.5 CALCIUM CORRECTED 9.3 mg/dL 8.5-10.1 Whole blood basic metabolic panel - 09/28/18 13:25 Serum or plasma sodium measurement (moles/volume) 137 mmol/L 135-145 Serum or plasma potassium measurement (moles/volume) 4.4 mmol/L 3.6-5.0 Serum or plasma chloride measurement (moles/volume) 102 mmol/L 98-107 Carbon dioxide 20 mmol/L 21-32 Serum or plasma anion gap determination (moles/volume) 15 mmol/L 5-14 Serum or plasma urea nitrogen measurement (mass/volume) 36 mg/dL 7-18 Serum or plasma creatinine measurement (mass/volume) 1.39 mg/dL 0.60-1.30 Serum or plasma urea nitrogen/creatinine mass ratio 26 NRG Serum or plasma creatinine measurement with calculation of estimated glomerular filtration rate 46 NRG Serum or plasma glucose measurement (mass/volume) 96 mg/dL 70-105 Serum or plasma calcium measurement (mass/volume) 9.7 mg/dL 8.5-10.1 Encounters ACCT No. Visit Date/Time Discharge Status Pt. Type Provider Facility Loc./Unit Complaint [id number] 09/23/2018 13:25:00 09/24/2018 12:00:00 DIS Outpatient HENRY SMITH MD, FACC, FACP CCDS Via [address] CHF ACUTE EXACERBATION [id number] 09/22/2018 12:25:00 09/22/2018 18:55:00 DIS Outpatient HENRY SMITH MD, FACC, FACP CCDS Via [facility] CHF [id number] 01/08/2018 14:58:00 01/08/2018 23:59:59 CLS Preadmit THIAGO LONGO APRN Via [facility] RAD ACUTE ON CHRONIC COMBINED SYSTOLIC AND DIASTOLIC [id number] 12/05/2017 12:14:00 12/05/2017 15:52:00 DIS Emergency NENITA SUAREZ, JERI Goodman [facility] ER SOB,NAUSEA,SWELLING ON LE [id number] 12/01/2017 10:39:00 12/01/2017 23:59:59 CLS Outpatient THIAGO LONGO APRN [facility] RAD LEG SWELLING, ASTHMA EXACERBATION,LUNG NODULE [id number] 11/25/2017 15:36:00 11/25/2017 23:59:59 CLS Outpatient THIAGO LONGO APRN [facility] SLEEP BRONCHIAL ASTHMA,SUSPECTED SLEEP APNEA,HYPERSOMNIA [id number] 11/25/2017 15:21:00 11/25/2017 23:59:59 CLS Outpatient THIAGO LONGO APRN [facility] RT ASTHMA EXACERBATION [id number] 07/29/2017 12:47:00 07/29/2017 23:59:59 CLS Outpatient MARY DE LOS SANTOS MD [facility] RAD CHRONIC KIDNEY DISEASE STAGE 4 [id number] 05/23/2017 10:40:00 05/23/2017 23:59:59 CLS Outpatient SARAH SUAREZ FACC, HENRY LOVE CCDS [facility] CARD ATRIAL FLUTTER [id number] 04/11/2017 12:56:00 04/11/2017 23:59:59 CLS Outpatient PHILLIP MADRIGAL DO [facility] RAD LUNG NODULE,OBESITY,SARCOIDOSIS [id number] 04/10/2016 14:18:00 04/10/2016 23:59:59 CLS Outpatient VIRGIL CORNEJO EPIC INTERFACE ANALYST [facility] CARD NICM,DIASTOLIC DYSFUNCTION,FERMIN,PULM HTN [id number] 03/26/2016 13:14:00 03/26/2016 23:59:59 CLS Outpatient THIAGO LONGO APRN [facility] RAD DYSPNEA,BRONCHIAL ASTHMA [id number] 08/11/2014 15:00:00 08/11/2014 23:59:59 CLS Preadmit PHILLIP MADRIGAL DO [facility] PULM [id number] 06/21/2014 13:00:00 06/21/2014 23:59:59 CLS Outpatient PHILLIP MADRIGAL DO [facility] PULM [id number] 06/09/2014 13:00:00 06/13/2014 00:00:00 DIS Outpatient PHILLIP MADRIGAL DO [facility] PULM [id number] 10/27/2013 07:42:00 10/27/2013 23:59:59 CLS Outpatient PHILLIP MADRIGAL DO [facility] RT [id number] 10/15/2013 13:38:00 10/15/2013 23:59:59 CLS Outpatient VIRGIL CORNEJO EPIC INTERFACE ANALYST [facility] CARD [id number] 10/01/2013 11:46:00 10/01/2013 23:59:59 CLS Outpatient ARTHUR SUAREZ, BELLA Estrada [facility] RAD [id number] 05/25/2013 21:00:00 05/26/2013 06:55:00 DIS Outpatient VIRGIL CORNEJO [facility] SLEEP SNORING [id number] 02/05/2013 08:07:00 02/05/2013 23:59:59 CLS Outpatient [id number] 02/02/2013 10:36:00 02/02/2013 23:59:59 CLS Outpatient [id number] 09/28/2018 13:14:00 ACT Outpatient VIRGIL CORNEJO [facility] LAB HEART FAILURE [id number] 09/28/2018 13:09:00 ACT Outpatient THIAGO LONGO APRN [facility] RT BRONCHIAL ASTHMA [id number] 12/10/2017 12:49:00 Document Registration [id number] 05/07/2012 06:36:00 Document Registration [id number] 05/06/2012 09:58:00 Document Registration [id number] 01/29/2018 17:31:00 01/29/2018 23:59:00 DIS Outpatient Filippo Levin [id number] 12/24/2017 14:38:00 12/24/2017 23:59:00 DIS Outpatient Filippo Levin [id number] 12/19/2017 13:14:00 12/19/2017 23:59:00 DIS Outpatient Filippo Levin
== END 2018-09-24 09:20 | disposition home or self-care (01) ==
LOC: EDUNIT# 11:15 → ER 11:16 → INTOOBSV 13:25 → UNDOADMOB 13:25 → 4TH 13:25 → UNDODISOB 09-24 12:00
PROVIDERS: ADMIT Internal Medicine Cardiovascular Disease; ATTEND Internal Medicine Cardiovascular Disease
DX: I50.33 Acute on chronic diastolic (congestive) heart failure (principal); I42.9 Cardiomyopathy, unspecified; I48.92 Unspecified atrial flutter; I27.20 Pulmonary hypertension, unspecified; I44.7 Left bundle-branch block, unspecified; N18.3 Chronic kidney disease, stage 3 (moderate); J45.909 Unspecified asthma, uncomplicated; Z95.810 Presence of automatic (implantable) cardiac defibrillator; Z79.01 Long term (current) use of anticoagulants
CPT/HCPCS: 36415; 71045; 80053; 83735; 83880; 84484; 85007; 85025; 85027; 86141; 93005; 94640; 94664; 94760; 96374

== ENCOUNTER → 2018-09-28 | Outpatient (CLI) | payer OTHER, MEDICARE ==
[~2018-09-28] MED LIST changes: +ACET325T38 PO; +ALBU18HF2 INH; +FERR-84 PO; +FLUT16SP22 NS; +FURO-124 PO; +POTA10TA10 PO; +POTA10TA36 PO; +RT-ALBUTEROL SULF 2.5 MG/3 ML PRE-MIX VIAL INH ONE; +RT-ALBUTEROL SULF 2.5 MG/3 ML PRE-MIX VIAL ONE
--- NOTE | 2018-09-28 15:48 | Diagnostic Imaging Report ---
PROCEDURE: CT chest without contrast. TECHNIQUE: Multiple contiguous axial images were obtained through the chest without the use of intravenous contrast. Auto Exposure Controls were utilized during the CT exam to meet ALARA standards for radiation dose reduction. INDICATION: Shortness of air and difficulty breathing. COMPARISON: Correlation is made with prior CT chest from 12/01/2017. FINDINGS: Left chest wall cardiac pacemaker remains in place. No axillary lymphadenopathy is seen. Hilar and mediastinal evaluation is limited without intravenous contrast but no gross abnormality is seen. The heart is enlarged. There is no pericardial or pleural fluid identified. Tiny nodules in the right upper lobe appears stable, image 21 of 22. Tiny nodules more inferiorly in the right middle lobe appears stable. Nodular densities in the lateral portion of the left lower lobe image 35 are stable. There are zones of linear atelectasis or scarring in the bilateral upper lobes as well as the right middle lobe. Upper abdomen demonstrates multiple stones in the gallbladder. IMPRESSION: 1. Cardiomegaly and bilateral pulmonary nodules, stable since study from November 2017. 2. Cholelithiasis. Dictated by: Dictated on workstation # [id number]
== END ==
LOC: RT 13:09
PROVIDERS: ATTEND Nurse Practitioner Family
DX: J45.909 Unspecified asthma, uncomplicated (principal); R91.1 Solitary pulmonary nodule; D86.0 Sarcoidosis of lung; I50.43 Acute on chronic combined systolic (congestive) and diastolic (congestive) heart failure
CPT/HCPCS: 71250; 94060; 94726; 94729

== ENCOUNTER → 2018-09-28 | Outpatient (CLI) | payer OTHER, MEDICARE ==
[~2018-09-28] MED LIST changes: -RT-ALBUTEROL SULF 2.5 MG/3 ML PRE-MIX VIAL INH ONE; -RT-ALBUTEROL SULF 2.5 MG/3 ML PRE-MIX VIAL ONE
[2018-09-28 13:54] LABS: CALCIUM 9.7 MG/DL (8.5-10.1); CREATININE SERUM 1.39 MG/DL (0.60-1.30); POTASSIUM 4.4 MMOL/L (3.6-5.0)
== END ==
LOC: LAB 13:14
PROVIDERS: ATTEND Nurse Practitioner Family
DX: I50.9 Heart failure, unspecified (principal); T50.2X5A Adverse effect of carbonic-anhydrase inhibitors, benzothiadiazides and other diuretics, initial encounter
CPT/HCPCS: 36415; 80048

== ENCOUNTER 2018-10-26 07:53 | Outpatient (RCR) | payer OTHER, MEDICARE ==
[2018-11-03 09:25] VITALS: BP 118/70
[2018-11-03 09:58] VITALS: BP 120/68
[2018-11-05 09:30] VITALS: BP 115/60
[2018-11-05 10:30] VITALS: BP 120/62
[2018-11-10 09:25] VITALS: BP 112/60
[2018-11-10 10:10] VITALS: BP 112/64
[2018-11-17 09:30] VITALS: BP 120/60
[2018-11-17 10:32] VITALS: BP 110/66
[2018-11-19 09:23] VITALS: BP 115/60
[2018-11-19 10:20] VITALS: BP 108/64
[2018-11-24 09:30] VITALS: BP 123/64
[2018-11-24 10:39] VITALS: BP 130/50
[2018-11-26 09:15] VITALS: BP 160/60
[2018-11-26 10:30] VITALS: BP 121/60
[2018-12-01 09:30] VITALS: BP 130/60
[2018-12-01 10:45] VITALS: BP 120/68
[2018-12-03 09:20] VITALS: BP 119/78
[2018-12-08 09:30] VITALS: BP 100/60
[2018-12-08 10:45] VITALS: BP 115/60
[2018-12-10 09:30] VITALS: BP 120/60
[2018-12-10 10:45] VITALS: BP 150/60
[2018-12-15 09:20] VITALS: BP 118/60
[2018-12-15 10:22] VITALS: BP 102/64
[2018-12-17 09:30] VITALS: BP 140/70
[2018-12-17 10:33] VITALS: BP 122/70
[2018-12-22 09:30] VITALS: BP 90/60
[2018-12-22 10:45] VITALS: BP 115/60
[2018-12-24 10:45] VITALS: BP 120/60
[2018-12-24 11:20] VITALS: BP 130/60
[2018-12-29 09:30] VITALS: BP 127/70
[2018-12-29 10:35] VITALS: BP 122/58
[2018-12-31 09:20] VITALS: BP 122/64
[2018-12-31 10:25] VITALS: BP 132/72
[2019-01-05 09:40] VITALS: BP 140/60
[2019-01-05 10:30] VITALS: BP 120/70
== END 2019-01-24 | disposition home or self-care (01) ==
LOC: PULM 07:53
PROVIDERS: ATTEND Nurse Practitioner Family
DX: J45.909 Unspecified asthma, uncomplicated (principal); J44.9 Chronic obstructive pulmonary disease, unspecified; G47.33 Obstructive sleep apnea (adult) (pediatric); R91.1 Solitary pulmonary nodule; R06.00 Dyspnea, unspecified
CPT/HCPCS: 99211

== ENCOUNTER → 2019-02-01 | Outpatient (CLI) | payer OTHER, MEDICARE ==
[2019-02-01 12:12] LABS: CREATININE SERUM 1.47 MG/DL (0.60-1.30)
--- NOTE | 2019-02-01 12:50 | Diagnostic Imaging Report ---
PROCEDURE: US Venous Lower Ext Ozzy. TECHNIQUE: Multiple real-time grayscale images were obtained over the lower extremities in various projections, bilaterally. Additional duplex Doppler and color Doppler images were also obtained. INDICATION: Leg swelling. There is no evidence of a right or left lower extremity DVT. Both lower extremity deep venous systems demonstrate normal compressibility with normal response to augmentation and Valsalva. No fluid collection or mass is seen. IMPRESSION: No evidence of right or left lower extremity DVT. Dictated by: Dictated on workstation # [id number]
--- NOTE | 2019-02-01 15:54 | Diagnostic Imaging Report ---
CT CHEST WO TECHNIQUE: Multiple contiguous axial images were obtained through the chest without the use of intravenous contrast. All CT scans use one or more of the following dose optimizing techniques: automated exposure control, MA and/or KvP adjustment based on a patient size and exam type, or iterative reconstruction. INDICATION: Obstructive sleep apnea, allergic rhinitis, dyspnea and leg swelling. COMPARISON: CT chest of 09/28/2018. FINDINGS: Lungs and airway: No endoluminal nodule within the trachea. A few nodular consolidations have developed within the right upper and lower lobes. The largest is in the superior segment of the right lower lobe measuring 1.7 x 1.6 cm. Additionally, there are numerous centrilobular micronodules within the lung bases. Linear atelectasis/scar within the lingula is unchanged. Pleura: No pleural effusion or pneumothorax. Heart and mediastinum: Visualized thyroid is normal. No supraclavicular or axillary lymphadenopathy. No mediastinal, hilar or juxtaphrenic lymphadenopathy. Stable enlargement of the heart without pericardial effusion. Left pectoral transvenous dual-chamber pacemaker is in stable position. Normal caliber thoracic aorta. Upper abdomen: Cholelithiasis is again noted. No features of acute cholecystitis. No hiatal hernia. Musculoskeletal: No worrisome focal osseous lesions. IMPRESSION: 1. New multifocal pulmonary nodules and centrilobular micronodules most compatible with an infectious or inflammatory process. 2. No features of congestive heart failure. Dictated by: Dictated on workstation # [id number]
== END ==
LOC: RAD 11:37
PROVIDERS: ATTEND Nurse Practitioner Family
DX: M79.89 Other specified soft tissue disorders (principal); G47.33 Obstructive sleep apnea (adult) (pediatric); G47.50 Parasomnia, unspecified; J45.909 Unspecified asthma, uncomplicated; R09.02 Hypoxemia; D86.0 Sarcoidosis of lung; R91.8 Other nonspecific abnormal finding of lung field
CPT/HCPCS: 36415; 71250; 82565; 84520; 93970

== ENCOUNTER → 2019-02-08 | Outpatient (CLI) | payer OTHER, MEDICARE ==
[2019-02-08 12:24] LABS: ABG BASE EXCESS 0.6 MMOL/L (-2.5-2.5); ABG OXYGEN SATURATION 89 % (94-100); ABG PCO2 40 MMHG (35-45); ABG PO2 60 MMHG (79-93); ABG TCO2 26.3 MMOL/L (21.0-31.0); ALLENS TEST YES-POS; INSPIRED O2 ROOM AIR; PATIENT TEMP 35.8; VENTILATOR NO
--- NOTE | 2019-02-08 13:58 | Diagnostic Imaging Report ---
PA and lateral chest at 12:45 Indication: Dyspnea Findings: The heart is enlarged but both the heart and the central pulmonary vascularity are less prominent than noted on the prior exam of 09/23/2018. There is no evidence for overt failure at this time. There are a few thin strands of increased density in the right lung base. These could be chronic in nature. There is no consolidative pneumonia identified. There is no sign of a pleural effusion. The mediastinum is not widened. The osseous structures are intact. The left-sided defibrillator device seen previously is again evident and no different. Impression: 1. There is cardiomegaly but there is no evidence for overt congestive failure. The bands of increased density in the right lung base may be secondary to atelectasis/scar formation. There is no pneumonia identified with certainty. 2. If clinical concern regarding an acute abnormality persists, then CT of the chest would be recommended for further study. Dictated by: Dictated on workstation # [id number]
== END ==
LOC: RAD 11:54
PROVIDERS: ATTEND Nurse Practitioner Family
DX: J45.909 Unspecified asthma, uncomplicated (principal); D86.0 Sarcoidosis of lung; J98.4 Other disorders of lung; I51.7 Cardiomegaly; G47.50 Parasomnia, unspecified; G47.36 Sleep related hypoventilation in conditions classified elsewhere; G47.33 Obstructive sleep apnea (adult) (pediatric); Z95.810 Presence of automatic (implantable) cardiac defibrillator
CPT/HCPCS: 71046; 82805

== ENCOUNTER 2019-03-14 09:33 | Observation (INO) | payer OTHER, MEDICARE ==
[2019-03-14] VITALS (7 sets, daily range): BP systolic 112–162; BP diastolic 68–99
[~2019-03-14] VITALS: Ht 162.5 cm; Wt 107.6 kg
--- NOTE | 2019-03-14 09:55 | ED Respiratory ---
General Chief Complaint: Respiratory Problems Stated Complaint: SOB Source: patient Exam Limitations: no limitations History of Present Illness Date Seen by Provider: Mar 14, 2019 Time Seen by Provider: 09:52 Initial Comments This 68-year-old female presents with increasing respiratory distress very progressive over the last month and much worse this morning. Patient has had long-standing COPD. She is under the care of Dr. Rose. She is due for bronchoscopy and their future. In the past exacerbations of required steroids and antibiotics. The patient has had a mildly productive cough. The patient has discontinued several of her medications recently and decreased her diuretics. Allergies and Home Medications Allergies Coded Allergies: No Known Drug Allergies (Unverified , 11/03/11) Home Medications Acetaminophen 325 Mg Tablet, 650 MG PO Q6H PRN for PAIN-MILD, (Reported) Albuterol Sulfate 18 Gm Hfa.aer.ad, 2 PUFF INH QID PRN for SHORTNESS OF BREATH, (Reported) Amiodarone HCl 200 Mg Tablet, 200 MG PO DAILY, (Reported) Apixaban 5 Mg Tablet, 5 MG PO BID, (Reported) Cefuroxime Axetil 500 Mg Tablet, 500 MG PO BID Prescribed by: HENRY SMITH on 09/22/18 1603 Cetirizine HCl 10 Mg Tablet, 10 MG PO HS, (Reported) Cholecalciferol (Vitamin D3) 1,000 Unit Capsule, 1,000 UNIT PO DAILY, (Reported) Ergocalciferol (Vitamin D2) 50,000 Unit Capsule, 50,000 UNIT PO Th, (Reported) Ferrous Sulfate 325 Mg Tablet, 325 MG PO BID, (Reported) Fluticasone Propionate 16 Gm [place].susp, 2 SPRAYS NS HS, (Reported) Fluticasone/Salmeterol 1 Each Blst.w.dev, 1 PUFF IH BID, (Reported) Furosemide 40 Mg Tablet, 40 MG PO LASIXBID Take 2 tablets in the morning and one tablet in the evening Prescribed by: VIRGIL CORNEJO on 09/24/18 09 Glucosamine Sulfate 2Kcl 1,000 Mg Tablet, 1,000 MG PO DAILY, (Reported) Lisinopril 10 Mg Tablet, 10 MG PO DAILY, (Reported) Metoprolol Tartrate 50 Mg Tablet, 50 MG PO BID, (Reported) Potassium Chloride 10 Meq Tab.er.prt, 10 MEQ PO BID Prescribed by: VIRGIL CORNEJO on 09/24/18 0913 Patient Home Medication List Home Medication List Reviewed: Yes Review of Systems Review of Systems Constitutional: No chills, No fever EENTM: no symptoms reported Respiratory: see HPI, cough, short of breath Cardiovascular: chest pain; No edema, No palpitations Gastrointestinal: No abdominal pain, No nausea, No vomiting Genitourinary: no symptoms reported Musculoskeletal: no symptoms reported Skin: no symptoms reported Psychiatric/Neurological: No Symptoms Reported Hematologic/Lymphatic: No Symptoms Reported Immunological/Allergic: no symptoms reported Past Sliomwe-Pepgqf-Znginz Hx Past Med/Social Hx: Reviewed Nursing Past Med/Soc Hx Patient Social History Alcohol Use: Occasionally Uses Recreational Drug Use: No 2nd Hand Smoke Exposure: No Recent Foreign Travel: No Contact w/Someone Who Travel: No Recent Hopitalizations: No Immunizations Up To Date Date of Influenza Vaccine: Feb 06, 2012 Seasonal Allergies Seasonal Allergies: Yes Past Medical History Surgeries: Yes (Appy and hysterectomy ) Appendectomy, Defibrillator, Hysterectomy Respiratory: Yes Sleep Apnea, COPD Currently Using CPAP: Yes (WITH O2) Currently Using BIPAP: No Cardiac: Yes (CHF WITH RECENT MULTIPLE SHOCKS FROM DEFIB) Atrial Fibrillation Neurological: No Reproductive Disorders: Yes Sexually Transmitted Disease: No HIV/AIDS: No Genitourinary: No Renal Failure Gastrointestinal: No Musculoskeletal: No Endocrine: No HEENT: No Loss of Vision: Denies Cancer: No Psychosocial: No Integumentary: No Blood Disorders: No Adverse Reaction/Blood Tranf: No Family Medical History Patient reports no known family medical history. No Pertinent Family Hx Physical Exam Vital Signs - First Documented 03/14/19 03/14/19 09:44 10:19 Temp 36.9 Pulse 76 Resp 19 B/P (MAP) 100/73 (82) Pulse Ox 95 O2 Delivery Nasal Cannula O2 Flow Rate 2.00 Capillary Refill : Height: 5'5.00" Weight: 243lbs. 0.2oz. [id number]; 35.6 BMI Method:Stated General Appearance: WD/WN, mild distress Eyes: Bilateral Eye Normal Inspection HEENT: normal ENT inspection Neck: normal inspection Respiratory: decreased breath sounds Cardiovascular: regular rate, rhythm, no murmur Gastrointestinal: non tender, soft Extremities: normal range of motion, non-tender Neurologic/Psychiatric: no motor/sensory deficits, alert, normal mood/affect, oriented x 3 Skin: normal color, warm/dry Progress/Results/Core Measures Suspected Sepsis SIRS Temperature: Pulse: Respiratory Rate: Laboratory Tests 03/14/19 10:15: White Blood Count 5.3 Blood Pressure / Mean: Laboratory Tests 03/14/19 10:15: Creatinine 1.59H, Platelet Count 231, Total Bilirubin 0.8 Results/Orders Lab Results Laboratory Tests Test 03/14/19 10:15 03/14/19 10:35 Range/Units White Blood Count 5.3 4.3-11.0 10^3/uL Red Blood Count 3.60 L 4.35-5.85 10^6/uL Hemoglobin 10.8 L 11.5-16.0 G/DL Hematocrit 33 L 35-52 % Mean Corpuscular Volume 92 80-99 FL Mean Corpuscular Hemoglobin 30 25-34 PG Mean Corpuscular Hemoglobin Concent 33 32-36 G/DL Red Cell Distribution Width 14.1 10.0-14.5 % Platelet Count 231 130-400 10^3/uL Mean Platelet Volume 10.0 7.4-10.4 FL Neutrophils (%) (Auto) 81 H 42-75 % Lymphocytes (%) (Auto) 9 L 12-44 % Monocytes (%) (Auto) 9 0-12 % Eosinophils (%) (Auto) 1 0-10 % Basophils (%) (Auto) 0 0-10 % Neutrophils # (Auto) 4.3 1.8-7.8 X 10^3 Lymphocytes # (Auto) 0.5 L 1.0-4.0 X 10^3 Monocytes # (Auto) 0.5 0.0-1.0 X 10^3 Eosinophils # (Auto) 0.1 0.0-0.3 10^3/uL Basophils # (Auto) 0.0 0.0-0.1 10^3/uL D-Dimer 0.49 0.00-0.49 UG/ML Sodium Level 141 135-145 MMOL/L Potassium Level 4.1 3.6-5.0 MMOL/L Chloride Level 104 98-107 MMOL/L Carbon Dioxide Level 25 21-32 MMOL/L Anion Gap 12 5-14 MMOL/L Blood Urea Nitrogen 31 H 7-18 MG/DL Creatinine 1.59 H 0.60-1.30 MG/DL Estimat Glomerular Filtration Rate 39 BUN/Creatinine Ratio 19 Glucose Level 105 70-105 MG/DL Calcium Level 9.6 8.5-10.1 MG/DL Corrected Calcium 9.7 8.5-10.1 MG/DL Total Bilirubin 0.8 0.1-1.0 MG/DL Aspartate Amino Transf (AST/SGOT) 20 5-34 U/L Alanine Aminotransferase (ALT/SGPT) 21 0-55 U/L Alkaline Phosphatase 60 40-136 U/L Total Protein 7.3 6.4-8.2 GM/DL Albumin 3.9 3.2-4.5 GM/DL My Orders Orders - SELENA HUFFMAN MD Cbc With Automated Diff (03/14/19 09:49) Comprehensive Metabolic Panel (03/14/19 09:49) Ua Culture If Indicated (03/14/19 09:49) Chest 1 View, Ap/Pa Only (03/14/19 09:49) Ekg Tracing (03/14/19 09:49) Troponin I (03/14/19 09:49) Fibrin Degradation Products (03/14/19 09:49) Basic Metabolic Panel (03/14/19 09:49) Albuterol/Ipra Inhalation Soln (Duoneb I (03/14/19 10:00) Svn Small Volume Nebulizer (03/14/19 09:49) Methylprednisolone Sod Succ (Solu-Medrol (03/14/19 10:00) Ceftriaxone For Iv Use (Rocephin For I (03/14/19 10:00) Furosemide Injection (Lasix Injection) (03/14/19 10:45) Medications Given in ED Current Medications Medications Dose Ordered Sig/Jennifer Route Start Time Stop Time Status Last Admin Dose Admin Albuterol/ Ipratropium 3 ml ONCE ONCE INH 03/14/19 10:00 03/14/19 10:01 DC 03/14/19 10:18 3 ML Methylprednisolone Sodium Succinate 125 mg ONCE ONCE IVP 03/14/19 10:00 03/14/19 10:01 DC 03/14/19 10:24 125 MG Vital Signs/I&O 03/14/19 03/14/19 09:44 10:19 Temp 36.9 Pulse 76 Resp 19 B/P (MAP) 100/73 (82) Pulse Ox 95 97 O2 Delivery Nasal Cannula Nasal Cannula O2 Flow Rate 2.00 Capillary Refill : Progress Note : Time: 10:53 Progress Note Patient's chest x-ray was consistent with congestive heart failure. Patient's white count was normal. The patient's d-dimer was normal. The patient's B and P is pending. Patient received 40 mg of Lasix IV. 125 mg of Solu-Medrol IV were given. A pro-calcitonin was ordered after telephone consultation with Dr. Serrano. IV antibiotics will be held at this point. I left a phone message for Dr. Rose. Patient was admitted to a [facility] bed and orders were written. Patient's EKG demonstrated a paced rhythm with a ventricular rate of 70. Departure Communication (Admissions) Time/Spoke to Admitting Phy: 10:55 Dr. Serrano. Time/Spoke to Consulting Phy: 10:56 I left a message for Dr. Ramirez. Impression Primary Impression: CHF (congestive heart failure) Qualified Codes: I50.9 - Heart failure, unspecified Additional Impression: COPD exacerbation Disposition: ADMITTED INPATIENT Condition: Improved Admissions Decision to Admit Reason: Admit from ER (General) Decision to Admit/Date: Mar 14, 2019 Time/Decision to Admit Time: 10:57 Departure-Patient Inst. Referrals: NO,LOCAL PHYSICIAN (PCP/Family) Primary Care Physician SELENA HUFFMAN MD Mar 14, 2019 09:55 POS
[2019-03-14] MEDS ORDERED: methylPREDNISolone 125 MG (Solu-MEDROL) VIAL IVP ONE (10:00)
[2019-03-14] MEDS ORDERED: cefTRIAXone FOR IV USE 1,000 MG in WATER (STERILE) FOR INJECTION 10 ML IV ONE (10:00)
[2019-03-14] MEDS ORDERED: RT-ALBUTEROL/IPRATROPIUM 3 ML (DUONEB) VIAL INH ONE (10:00)
[2019-03-14 10:31] LABS: BASOPHILS % (AUTO) 0 % (0-10); EOSINOPHILS # (AUTO) 0.1 10^3/uL (0.0-0.3); EOSINOPHILS % (AUTO) 1 % (0-10); HEMATOCRIT 33 % (35-52); HEMOGLOBIN 10.8 G/DL (11.5-16.0); LYMPHOCYTES # (AUTO) 0.5 X 10^3 (1.0-4.0); LYMPHOCYTES % (AUTO) 9 % (12-44); MEAN CORPUSCULAR HEMOGLOBIN 30 PG (25-34); MEAN CORPUSCULAR HGB CONC 33 G/DL (32-36); MEAN CORPUSCULAR VOLUME 92 FL (80-99); MONOCYTES # (AUTO) 0.5 X 10^3 (0.0-1.0); MONOCYTES % (AUTO) 9 % (0-12); NEUTROPHILS # (AUTO) 4.3 X 10^3 (1.8-7.8); NEUTROPHILS % (AUTO) 81 % (42-75); PLATELET COUNT 231 10^3/uL (130-400); RED CELL DISTRIBUTION WIDTH 14.1 % (10.0-14.5); WHITE BLOOD COUNT 5.3 10^3/uL (4.3-11.0)
--- NOTE | 2019-03-14 10:42 | Diagnostic Imaging Report ---
INDICATION: Shortness of breath. Pacemaker COMPARISON: 02/08/2019 FINDINGS: Single view chest demonstrates cardiac enlargement with new central vascular congestion and borderline pulmonary edema. Underlying pneumonia not excluded. There is no pneumothorax or effusion. The pacemaker stable. Osseous structures are age-appropriate IMPRESSION: Cardiac enlargement with new bilateral pulmonary infiltrates representing CHF versus pneumonia. Dictated by: Dictated on workstation # [id number]
[2019-03-14 10:45] LABS: BILIRUBIN,URINE NEGATIVE (NEGATIVE); CLARITY,URINE CLEAR; COLOR,URINE YELLOW; GLUCOSE, URINE (UA) NEGATIVE (NEGATIVE); KETONES,URINE NEGATIVE (NEGATIVE); LEUKOCYTE ESTERASE ,URINE 2+ (NEGATIVE); NITRITE,URINE NEGATIVE (NEGATIVE); PH,URINE 5 (5-9); PROTEIN,URINE 2+ (NEGATIVE)
[2019-03-14] MEDS ORDERED: FUROSEMIDE 40 MG/4 ML INJ (LASIX) IVP ONE (10:45)
[2019-03-14 10:51] LABS: ALBUMIN 3.9 GM/DL (3.2-4.5); BILIRUBIN,TOTAL 0.8 MG/DL (0.1-1.0); CALCIUM 9.6 MG/DL (8.5-10.1); CREATININE SERUM 1.59 MG/DL (0.60-1.30); POTASSIUM 4.1 MMOL/L (3.6-5.0); TOTAL PROTEIN 7.3 GM/DL (6.4-8.2)
[2019-03-14 10:55] LABS: BACTERIA,URINE NEGATIVE /HPF; RBC,URINE RARE /HPF; WBC,URINE 0-2 /HPF
--- NOTE | 2019-03-14 11:10 | NUR ---
Called house sup for bed
[2019-03-14] MEDS ORDERED: NS IV 1000 ML 1,000 ML IV SCH (12:30)
--- NOTE | 2019-03-14 14:13 | Consultation-Cardiology ---
HPI-Cardiology Cardiology Consultation: Date of Consultation 03/14/19 Time Seen by a Provider: 13:50 Date of Admission Attending Physician Jyothi Serrano MD Admitting Physician No,Local Physician Consulting Physician HENRY SMITH MD, MA, FACP, FACC, FSCAI, CCDS HPI: Chief Complaint: CC: Shortness of breath HPI 68 yo woman with increasing shortness of breath for several weeks. This was much worse this am. She decided to come to the hosp ER from where she was admitted to Dr Serrano. Has chronic, mild to mod ankle swelling that has not changed lately. Denies cp or palp or syncope. Notes gen malaise and tiredness. Had been on low dose amio that was stopped on 03/11/19 under the suspicion of amio toxicity being at the root of her relatively recent shortness of breath. She saw her adventure education teacher on 03/10/19 who stopped her ORAL-inhib because of worsening renal function and also reduced her diuretics. Shortness of breath has been worse since Review of Systems-Cardiology Review of Systems Constitutional: malaise, tiredness; No weight loss, No weight gain Eyes: No vision change Ears/Nose/Throat: No ear discharge, No nasal drainage, No recent hearing loss Respiratory: As described under HPI Cardiovascular: As described under HPI Gastrointestinal: No diarrhea, No nausea, No vomiting Genitourinary: No dysuria, No hematuria, No urine frequency changes Musculoskeletal: back pain (chronic) Skin: No rash, No ulcerations Psychiatric/Neurological: No seizure, No focal weakness, No syncope Hematologic: No bleeding abnormalities LJL-Xeoshk-Bqwmbx Hx Patient Social History Alcohol Use: Occasionally Uses Recreational Drug Use: No 2nd Hand Smoke Exposure: No Recent Foreign Travel: No Recent Infectious Disease Expo: No Hospitalization with Isolation: Denies Immunizations Up To Date Date of Influenza Vaccine: Feb 06, 2012 Past Medical History PMH As described under Assessment. Family Medical History Family History: Patient reports no known family medical history. Allergies and Home Medications Allergies Coded Allergies: No Known Drug Allergies (Unverified , 11/03/11) Home Medications Acetaminophen 325 Mg Tablet, 650 MG PO Q6H PRN for PAIN-MILD, (Reported) Albuterol Sulfate 18 Gm Hfa.aer.ad, 2 PUFF INH QID PRN for SHORTNESS OF BREATH, (Reported) Amiodarone HCl 200 Mg Tablet, 200 MG PO DAILY, (Reported) Apixaban 5 Mg Tablet, 5 MG PO BID, (Reported) Cefuroxime Axetil 500 Mg Tablet, 500 MG PO BID Prescribed by: HENRY SMITH on 09/22/18 1603 Cetirizine HCl 10 Mg Tablet, 10 MG PO HS, (Reported) Cholecalciferol (Vitamin D3) 1,000 Unit Capsule, 1,000 UNIT PO DAILY, (Reported) Ergocalciferol (Vitamin D2) 50,000 Unit Capsule, 50,000 UNIT PO Th, (Reported) Ferrous Sulfate 325 Mg Tablet, 325 MG PO BID, (Reported) Fluticasone Propionate 16 Gm [place].susp, 2 SPRAYS NS HS, (Reported) Fluticasone/Salmeterol 1 Each Blst.w.dev, 1 PUFF IH BID, (Reported) Furosemide 40 Mg Tablet, 40 MG PO LASIXBID Take 2 tablets in the morning and one tablet in the evening Prescribed by: VIRGIL CORNEJO on 09/24/18912 Glucosamine Sulfate 2Kcl 1,000 Mg Tablet, 1,000 MG PO DAILY, (Reported) Lisinopril 10 Mg Tablet, 10 MG PO DAILY, (Reported) Metoprolol Tartrate 50 Mg Tablet, 50 MG PO BID, (Reported) Potassium Chloride 10 Meq Tab.er.prt, 10 MEQ PO BID Prescribed by: VIRGIL CORNEJO on 09/24/18912 Patient Home Medication List Home Medication List Reviewed: Yes Physical Exam-Cardiology Physical Exam Vital Signs/I&O 03/14/19 03/14/19 03/14/19 03/14/19 09:44 10:19 11:57 12:30 Temp 36.9 36.9 Pulse 76 70 70 Resp 19 17 21 B/P (MAP) 100/73 (82) 160/67 (82) 162/88 (112) Pulse Ox 95 97 96 94 O2 Delivery Nasal Cannula Nasal Cannula Nasal Cannula Room Air O2 Flow Rate 2.00 2.00 03/14/19 12:35 Pulse 73 Capillary Refill : Less Than 3 Seconds Constitutional: AAO x 3, well-developed, well-nourished HEENT: PERRL, EOMI, hearing is well preserved Neck: carotid pulses are 2 + bilaterally, with good upstrokes Respiratory: No accessory muscle use; other (fair bilat air entry, but diminished at the bases) Cardiovascular: regular rate-rhythm, S1 and S2, systolic murmur (faint LUZ at card base) Gastrointestinal: No tender; soft; No guarding, No rebound; audible bowel sounds Extremities: swelling (mild to mod, bilateral leg edema); No clubbing, No cyanosis Neurologic/Psychiatric: oriented x 3, other (moves all limbs equally) Skin: No rash, No ulcerations Data Review Labs Laboratory Tests 03/14/19 10:15: White Blood Count 5.3, Red Blood Count 3.60L, Hemoglobin 10.8L, Hematocrit 33L, Mean Corpuscular Volume 92, Mean Corpuscular Hemoglobin 30, Mean Corpuscular Hemoglobin Concent 33, Red Cell Distribution Width 14.1, Platelet Count 231, Mean Platelet Volume 10.0, Neutrophils (%) (Auto) 81H, Lymphocytes (%) (Auto) 9L , Monocytes (%) (Auto) 9, Eosinophils (%) (Auto) 1, Basophils (%) (Auto) 0, Neutrophils # (Auto) 4.3, Lymphocytes # (Auto) 0.5L, Monocytes # (Auto) 0.5, Eosinophils # (Auto) 0.1, Basophils # (Auto) 0.0, D-Dimer 0.49, Sodium Level 141, Potassium Level 4.1, Chloride Level 104, Carbon Dioxide Level 25, Anion Gap 12, Blood Urea Nitrogen 31H, Creatinine 1.59H, Estimat Glomerular Filtration Rate 39, BUN/Creatinine Ratio 19, Glucose Level 105, Lactic Acid Level 1.10, Calcium Level 9.6, Corrected Calcium 9.7, Total Bilirubin 0.8, Aspartate Amino Transf (AST/SGOT) 20, Alanine Aminotransferase (ALT/SGPT) 21, Alkaline Phosphatase 60, Troponin I 0.041H, B-Type Natriuretic Peptide 1074.8H, Total Protein 7.3, Albumin 3.9, Procalcitonin 0.05 03/14/19 10:35: Urine Color YELLOW, Urine Clarity CLEAR, Urine pH 5, Urine Specific [place] 1.020, Urine Protein 2+H, Urine Glucose (UA) NEGATIVE, Urine Ketones NEGATIVE, Urine Nitrite NEGATIVE, Urine Bilirubin NEGATIVE, Urine Urobilinogen 1, Urine Leukocyte Esterase 2+H, Urine RBC (Auto) 1+H, Urine RBC RARE, Urine WBC 0-2, Urine Squamous Epithelial Cells 10-25H, Urine Crystals NONE, Urine Bacteria NEGATIVE, Urine Casts NONE, Urine Mucus NEGATIVE, Urine Culture Indicated NO 03/14/19 12:35: Troponin I 0.050H Laboratory Tests 03/14/19 10:15 A/P-Cardiology Assessment/Admission Diagnosis Multifactorial shortness of breath (see below) Nonischemic cardiomyopathy with an ejection fraction between 30 and 35% on serial echocardiograms, the last one of which was in January 2013. Most recent echocardiogram of May 2017 shows LVEF 55-60%, grade I diastolic dysfunction, trivial MR and TR. Cardiac cath of October [address] Issa showed angiographically normal coronaries Ac diastolic CHF after diuretics reduced on 03/10/19. H/o chronic systolic and diastolic CHF due to nonischemic cardiomyopathy. Minimal troponin elevation due to type 2 MT due to CHF Obesity with obesity-hypoventilation Intolerance to ORAL-inhib / ARB due to worsening renal function Suspected sarcoidosis, followed by Dr Rose. 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 Rose police officer S/p dual chamber ICD, pulse generator change out on 09-22-18. Superficial dehiscence at the device insertion site, healed by secondary intention. No evidence of pocket infection or inflammation Paroxysmal atrial flutter with an intermittent rapid ventricular response. In July 2012, she received one shock ICD for atrial flutter but has not has not received any since. She has not had any syncope or presyncope. Intolerance to digoxin (results in N/V and poor apetite) Chronic LBBB CKD-4, being followed by Dr Huff History of bronchial asthma, managed by Dr Aranda Chronic anticoagulation with warfarin therapy for stroke prophylaxis. MAXIM, treated with CPAP H/o pulm hypertension on echo studies of 2011,2012, 2013, echo studies of 2015 and 2017 have shown PASP approx 30-35 mmHg Discussion and Recomendations * Continue previous cardiac regimen * iv diuretics * Monitor labs * Repeat echo HENRY SMITH MD FACP [facility] CCDS Mar 14, 2019 14:13 POS
[2019-03-14] MEDS ORDERED: meTOprolol SUCCINATE 100 MG (TOPROL XL) TAB PO ONE (14:30)
[2019-03-14] MEDS ORDERED: RT-ALBUTEROL/IPRATROPIUM 3 ML (DUONEB) VIAL IH SCH (15:00)
[2019-03-14] MEDS ORDERED: MELATONIN 3 MG TABLET PO PRN (16:15)
[2019-03-14] MEDS ORDERED: POLYETHYLENE GLYCOL 17 GM (MIRALAX) PACK PO PRN (16:15)
[2019-03-14] MEDS ORDERED: ACETAMINOPHEN 325 MG TABLET PO PRN (16:15)
[2019-03-14] MEDS ORDERED: BISACODYL 10 MG SUPP (DULCOLAX) PR PRN (16:15)
[2019-03-14] MEDS ORDERED: ANTACID SUSP 30 ML UDC (MYLANTA) PO PRN (16:15)
[2019-03-14] MEDS ORDERED: ONDANSETRON 4 MG (ZOFRAN) ORAL DISSOLVE TAB PO PRN (16:15)
[2019-03-14] MEDS ORDERED: FUROSEMIDE 40 MG/4 ML INJ (LASIX) IV SCH (17:00)
--- NOTE | 2019-03-14 17:29 | History & Physical-Hospitalist ---
History of Present Illness HPI/Chief Complaint Malathi Hurlye is a 68-year-old female with past medical history of hypertension, atrial flutter, sarcoidosis, nonischemic cardiomyopathy, or failure, who presented with shortness of breath. She reports that the shortness of breath has been getting worse over the past couple months. She is not sure if she has been gaining weight. She hasn't noticed any increase in the swelling in her legs. She denies any fevers or chills. She has a dry cough. She denies any chest pain. She reports chest tightness, but none at this time. She denies any abdominal pain, nausea, vomiting, diarrhea, or constipation. She denies any dysuria. She has been compliant with her medications. Source: patient Exam Limitations: no limitations Date Seen 03/14/19 Time Seen by a Provider: 16:30 Attending Physician Jyothi Tony MD PCP No,Local Physician Referring Physician Date of Admission Mar 14, 2019 at 10:53 Home Medications & Allergies Home Medications Reviewed patient Home Medication Reconciliation performed by pharmacy medication reconciliations production technician and/or nursing. Patients Allergies have been reviewed. Allergies Allergies Coded Allergies No Known Drug Allergies (Unverified11/03/11) Past Gxjucpz-Nzsaxy-Saefel Hx Past Med/Social Hx: Reviewed Nursing Past Med/Soc Hx Patient Social History Alcohol Use: Occasionally Uses Recreational Drug Use: No 2nd Hand Smoke Exposure: No Recent Foreign Travel: No Contact w/other who traveled: No Recent Hopitalizations: No Recent Infectious Disease Expo: No Immunizations Up To Date Date of Influenza Vaccine: Feb 06, 2012 Seasonal Allergies Seasonal Allergies: Yes Past Medical History Surgeries: Appendectomy, Defibrillator, Hysterectomy Currently Using CPAP: Yes (WITH O2) Currently Using BIPAP: No Cardiac: Atrial Fibrillation Reproductive: Yes Sexually Transmitted Disease: No HIV/AIDS: No Genitourinary: Renal Failure Loss of Vision: Denies History of Blood Disorders: No Adverse Reaction to Blood Garduno: No Family History Patient reports no known family medical history. No Pertinent Family Hx Review of Systems Constitutional: weight gain EENTM: no symptoms reported Respiratory: cough, dyspnea on exertion, short of breath Gastrointestinal: no symptoms reported Genitourinary: no symptoms reported Musculoskeletal: no symptoms reported Skin: no symptoms reported Psychiatric/Neurological: No Symptoms Reported Physical Exam Physical Exam Vital Signs Vital Signs - First Documented 1103/14/19 03/14/19 09:44 10:19 16:23 Temp 36.9 Pulse 76 Resp 19 B/P (MAP) 100/73 (82) Pulse Ox 95 O2 Delivery Nasal Cannula O2 Flow Rate 2.00 FiO2 28 Capillary Refill : Less Than 3 Seconds Height, Weight, BMI Height: 5'5.00" Weight: 243lbs. 0.2oz. 97.802175ww; 41.00 BMI Method:Stated General Appearance: No Apparent Distress, Obese HEENT: PERRL/EOMI, Pharynx Normal Neck: Normal Inspection, Supple Respiratory: Lungs Clear, Normal Breath Sounds, No Respiratory Distress, Other (wearing nasal cannula) Cardiovascular: Tachycardia, Other (regular rhythm, no murmurs) Gastrointestinal: Normal Bowel Sounds, Non Tender, Soft Extremity: Normal Inspection, Non Tender, Pedal Edema (2+ pitting edema bilateral lower extremities) Neurologic/Psychiatric: Alert, Oriented x3, No Motor/Sensory Deficits, Normal Mood/Affect Skin: Normal Color, Warm/Dry Lymphatic: No Adenopathy Results Results/Procedures Labs Laboratory Tests 03/14/19 10:15 Patient resulted labs reviewed. Imaging: Reviewed Imaging Films, Reviewed Imaging Report Assessment/Plan Admission Diagnosis Acute on chronic diastolic heart failure Admission Status: Inpatient Order (span 2 midnights) Reason for Inpatient Admission: heart failure requiring IV diuretics Assessment and Plan Acute on chronic diastolic heart failure Acute respiratory failure with hypoxemia weight increased to 110 kg from a 97 kg during September admission Chest x-ray showed pulmonary edema BNP elevated at 1074 WBC normal, procalcitonin normal no indication for antibiotics at this time Daily weights, strict intake and output Cardiology consulted, appreciate recommendations Begin IV Lasix 80 mg twice daily NSTEMI Troponin mildly elevated at 0.04 on admission, trended up to 0.05 Likely secondary to heart failure and chronic kidney disease Cardiology consulted Will continue to trend troponins CKD creatinine 1.59, slightly above baseline likely cardiorenal, will diuresis and continue to monitor COPD without exacerbation MAT protocol ordered Paroxysmal Atrial fibrillation Continue metoprolol and Eliquis DVT prophylaxis: already receiving therapeutic anticoagulation Diagnosis/Problems Diagnosis/Problems (1) Acute on chronic diastolic heart failure (2) COPD without exacerbation (3) Acute respiratory failure with hypoxemia (4) Paroxysmal atrial flutter (5) Nonischemic cardiomyopathy (6) ICD (implantable cardioverter-defibrillator) in place (7) CKD (chronic kidney disease) JYOTHI TONY MD Mar 14, 2019 17:29 POS
[2019-03-14] MEDS: FUROSEMIDE 40 MG/4 ML INJ (LASIX) IV SCH (17:30)
[2019-03-14] MEDS ORDERED: methylPREDNISolone 125 MG (Solu-MEDROL) VIAL IV SCH (18:00)
[2019-03-14] MEDS: RT-ALBUTEROL/IPRATROPIUM 3 ML (DUONEB) VIAL INH SCH ×2 (20:21→21:52)
[2019-03-14] MEDS ORDERED: meTOprolol TARTRATE 50 MG (LOPRESSOR) TAB PO SCH (21:00)
[2019-03-14] MEDS ORDERED: APIXABAN 5 MG (ELIQUIS) TABLET PO SCH (21:00)
[2019-03-14] MEDS: DOCUSATE SODIUM 100 MG (COLACE) CAP PO SCH (21:25)
[2019-03-14] MEDS: FLUTICASONE NASAL SPRAY (FLONASE) 16 GM BTL NS SCH (21:25)
[2019-03-14] MEDS: SENNOSIDES 8.6 MG (SENOKOT) TAB PO SCH (21:25)
[2019-03-14] MEDS: APIXABAN 5 MG (ELIQUIS) TABLET PO SCH (21:25)
[2019-03-14] MEDS: RT-ADVAIR HFA 115/21 MCG PER PUFF IH SCH (21:51)
[2019-03-15] VITALS (8 sets, daily range): BP systolic 104–118; BP diastolic 66–85
[2019-03-15] MEDS: RT-ALBUTEROL/IPRATROPIUM 3 ML (DUONEB) VIAL INH SCH ×6 (02:28→21:34)
[2019-03-15 03:53] LABS: BASOPHILS % (AUTO) 0 % (0-10); EOSINOPHILS % (AUTO) 0 % (0-10); HEMATOCRIT 33 % (35-52); HEMOGLOBIN 10.5 G/DL (11.5-16.0); LYMPHOCYTES # (AUTO) 0.3 X 10^3 (1.0-4.0); LYMPHOCYTES % (AUTO) 6 % (12-44); MEAN CORPUSCULAR HEMOGLOBIN 30 PG (25-34); MEAN CORPUSCULAR HGB CONC 32 G/DL (32-36); MEAN CORPUSCULAR VOLUME 92 FL (80-99); MEAN PLATELET VOLUME 10.6 FL (7.4-10.4); MONOCYTES # (AUTO) 0.1 X 10^3 (0.0-1.0); MONOCYTES % (AUTO) 1 % (0-12); NEUTROPHILS # (AUTO) 5.5 X 10^3 (1.8-7.8); NEUTROPHILS % (AUTO) 93 % (42-75); PLATELET COUNT 269 10^3/uL (130-400); RED CELL DISTRIBUTION WIDTH 13.5 % (10.0-14.5); WHITE BLOOD COUNT 5.9 10^3/uL (4.3-11.0)
[2019-03-15 04:07] LABS: CALCIUM 9.6 MG/DL (8.5-10.1); CREATININE SERUM 1.57 MG/DL (0.60-1.30); MAGNESIUM 2.1 MG/DL (1.6-2.4)
[2019-03-15 04:28] LABS: BAND NEUTROPHILS 2 %; LYMPHOCYTES % (MANUAL) 7 %; MONOCYTES % (MANUAL) 3 %; NEUTROPHILS % (MANUAL) 88 %
[2019-03-15 04:29] LABS: RBC MORPH NORMAL
--- NOTE | 2019-03-15 04:55 | Pulmonary Consultation ---
History of Present Illness History of Present Illness Date of Consultation 03/15/19 04:50 Date of Admission Allergies and Home Medications Allergies Coded Allergies: No Known Drug Allergies (Unverified , 11/03/11) Home Medications Acetaminophen 325 Mg Tablet, 650 MG PO Q6H PRN for PAIN-MILD, (Reported) Albuterol Sulfate 18 Gm Hfa.aer.ad, 2 PUFF INH QID PRN for SHORTNESS OF BREATH, (Reported) Allopurinol 100 Mg Tablet, 100 MG PO DAILY, (Reported) Apixaban 5 Mg Tablet, 5 MG PO BID, (Reported) Calcitriol 0.25 Mcg Capsule, 0.25 MCG PO MoWeFr, (Reported) Cetirizine HCl 10 Mg Tablet, 10 MG PO HS PRN for ALLERGIES, (Reported) Cholecalciferol (Vitamin D3) 2,000 Unit Capsule, 2,000 UNIT PO DAILY, (Reported) Clotrimazole/Betamethasone Dip 15 Gm Cream..g., TOP BID, (Reported) Epinephrine 11.7 Gm Hfa.aer.ad, 2 PUFF IH QID PRN for SHORTNESS OF BREATH, (Reported) USES WHEN SHE DOES NOT HAVE VENTOLIN Ferrous Sulfate 325 Mg Tablet, 325 MG PO BID, (Reported) Fluticasone Propionate 16 Gm Sixes.susp, 1 SPRAY NS HS, (Reported) Fluticasone/Salmeterol 1 Each Blst.w.dev, 1 PUFF IH BID, (Reported) Folic Acid/Mv,Fe,Other Min 1 Each Tablet, 1 TAB PO DAILY, (Reported) Furosemide 40 Mg Tablet, 40 MG PO DAILY, (Reported) Guaifenesin 600 Mg Tab.er.12h, 600 MG PO BID PRN for CONGESTION, (Reported) Metoprolol Tartrate 50 Mg Tablet, 50 MG PO BID, (Reported) Potassium Chloride 10 Meq Tablet.er, 10 MEQ PO DAILY, (Reported) Tiotropium Boyce 4 Gm Mist.inhal, 2 PUFF INH DAILY, (Reported) Past Iwzudkf-Gvgurd-Hnbzyt Hx Past Med/Social Hx: Reviewed Nursing Past Med/Soc Hx Patient Social History Alcohol Use: Occasionally Uses Recreational Drug Use: No 2nd Hand Smoke Exposure: No Recent Foreign Travel: No Contact w/Someone Who Travel: No Recent Infectious Disease Expo: No Recent Hopitalizations: No Immunizations Up To Date Date of Influenza Vaccine: Feb 06, 2012 Seasonal Allergies Seasonal Allergies: Yes Past Medical History Surgeries: Yes (Appy and hysterectomy ') Appendectomy, Defibrillator, Hysterectomy Respiratory: Yes Sleep Apnea, COPD Currently Using CPAP: Yes (WITH O2) Currently Using BIPAP: No Cardiac: Yes (CHF WITH RECENT MULTIPLE SHOCKS FROM DEFIB) Atrial Fibrillation Neurological: No Reproductive Disorders: Yes Sexually Transmitted Disease: No HIV/AIDS: No Genitourinary: No Renal Failure Gastrointestinal: No Musculoskeletal: No Endocrine: No HEENT: No Loss of Vision: Denies Cancer: No Psychosocial: No Integumentary: No Blood Disorders: No Adverse Reaction/Blood Tranf: No Family Medical History Patient reports no known family medical history. No Pertinent Family Hx Review of Systems Time Seen by Provider: 05:09 Sepsis Event Evaluation Height, Weight, BMI Height: 5'5.00" Weight: 243lbs. 0.2oz. 97.296032ca; 41.00 BMI Method:Stated Exam Exam Vital Signs Date Time Temp Pulse Resp B/P (MAP) Pulse Ox O2 Delivery O2 Flow Rate FiO2 03/15/19 04:00 36.1 103 17 110/85 (93) 98 NIV CPAP 2.00 03/15/19 04:00 NIV CPAP 2.00 03/15/19 02:28 98 NIV CPAP 2.00 03/15/19 01:00 105 03/15/19 00:00 36.2 106 16 114/66 (82) 90 NIV CPAP 2.00 03/15/19 00:00 Room Air 2.00 03/14/19 21:52 95 Nasal Cannula 2.50 03/14/19 21:52 Nasal Cannula 3.00 03/14/19 21:00 Nasal Cannula 2.00 03/14/19 20:00 36.4 03/14/19 20:00 103 13 112/89 (97) 96 Nasal Cannula 2.00 03/14/19 20:00 Room Air 03/14/19 19:00 108 21 135/99 (111) Nasal Cannula 2.00 03/14/19 19:00 108 03/14/19 16:31 94 Nasal Cannula 2.00 03/14/19 16:23 107 94 28 03/14/19 16:12 Nasal Cannula 2.00 03/14/19 16:00 36.1 03/14/19 16:00 105 31 140/91 (107) 96 Room Air 03/14/19 15:00 70 16 133/76 (95) 95 Room Air 03/14/19 14:00 70 127/68 (87) 95 Room Air 03/14/19 12:35 73 03/14/19 12:30 70 21 162/88 (112) 94 Room Air 03/14/19 11:57 36.9 70 17 160/67 (82) 96 Nasal Cannula 2.00 03/14/19 10:19 97 Nasal Cannula 2.00 03/14/19 09:44 36.9 76 19 100/73 (82) 95 Nasal Cannula I & O 03/15/19 07:00 Intake Total 1925 ml Output Total 700 ml Balance 1225 ml Height & Weight Height: 5'5.00" Weight: 243lbs. 0.2oz. 97.965643xo; 41.00 BMI Method:Stated General Appearance: No Apparent Distress, Obese HEENT: PERRL/EOMI, Pharynx Normal Neck: Normal Inspection, Supple Respiratory: Lungs Clear, Normal Breath Sounds, No Respiratory Distress, Other (wearing nasal cannula) Cardiovascular: Tachycardia, Other (regular rhythm, no murmurs) Capillary Refill: Less Than 3 Seconds Gastrointestinal: non tender, soft Extremity: Normal Inspection, Non Tender, Pedal Edema (2+ pitting edema bilateral lower extremities) Neurologic/Psychiatric: Alert, Oriented x3, No Motor/Sensory Deficits, Normal Mood/Affect Skin: Normal Color, Warm/Dry Lymphatic: No Adenopathy Results Lab Laboratory Tests 03/14/19 10:15 03/15/19 03:12 Assessment/Plan Assessment/Plan Acute on chronic respiratory failure with hypoxia -- Failed out pt treatment. -Will plan for bronchoscopy tomorrow. Acute on chronic diastolic heart failure -Lasix 80mg BID NSTEMI -Cardiology consulted CKD COPD Paroxysmal Atrial fibrillation Continue metoprolol and Eliquis DVT prophylaxis: already receiving therapeutic anticoagulation PHILLIP MADRIGAL DO Mar 15, 2019 04:55 POS
[2019-03-15] MEDS: FUROSEMIDE 40 MG/4 ML INJ (LASIX) IV SCH ×2 (06:37→17:07)
[2019-03-15] MEDS: RT-ADVAIR HFA 115/21 MCG PER PUFF IH SCH ×2 (06:42→18:28)
--- NOTE | 2019-03-15 08:11 | Diagnostic Imaging Report ---
INDICATION: Shortness of air. Dyspnea. COMPARISON: 03/14/2019 FINDINGS: Single frontal radiograph view of the chest was obtained and again demonstrates moderate cardiomegaly with perhaps mild pulmonary vascular congestion and interstitial pulmonary edema. Overall, aeration is stable compared to prior exam. There is no large effusion or pneumothorax. Left-sided AICD is noted. Osseous structures show no gross acute abnormalities. IMPRESSION: 1. Stable exam of the chest showing cardiomegaly with pulmonary vascular congestion and interstitial pulmonary edema. Dictated by: Dictated on workstation # [id number]
[2019-03-15] MEDS ORDERED: KCL 20 MEQ TAB (K-DUR) PO SCH (09:00)
[2019-03-15] MEDS: SENNOSIDES 8.6 MG (SENOKOT) TAB PO SCH ×2 (09:30→21:48)
[2019-03-15] MEDS: DOCUSATE SODIUM 100 MG (COLACE) CAP PO SCH ×2 (09:30→21:48)
[2019-03-15] MEDS: meTOprolol SUCCINATE 100 MG (TOPROL XL) TAB PO SCH (09:30)
--- NOTE | 2019-03-15 09:36 | Progress Note - Hospitalist ---
Subjective HPI/CC On Admission Date Seen by Provider: Mar 15, 2019 Time Seen by Provider: 08:30 Malathi Hurley is a 68-year-old female with past medical history of hypertension, atrial flutter, sarcoidosis, nonischemic cardiomyopathy, or failure, who presented with shortness of breath. She reports that the shortness of breath has been getting worse over the past couple months. She is not sure if she has been gaining weight. She hasn't noticed any increase in the swelling in her legs. She denies any fevers or chills. She has a dry cough. She denies any chest pain. She reports chest tightness, but none at this time. She denies any abdominal pain, nausea, vomiting, diarrhea, or constipation. She denies any dysuria. She has been compliant with her medications. Subjective/Events-last exam Pt reports doing well and breathing better. Plan for bronchoscopy tomorrow. Focused Exam Lactate Level 03/14/19 10:15: Lactic Acid Level 1.10 Objective Exam Vital Signs Vital Signs Date Time Temp Pulse Resp B/P (MAP) Pulse Ox O2 Delivery O2 Flow Rate FiO2 03/15/19 07:00 107 03/15/19 06:40 94 Nasal Cannula 2.00 03/15/19 04:00 36.1 17 110/85 (93) 03/14/19 16:23 28 Capillary Refill : Less Than 3 Seconds General Appearance: No Apparent Distress, Obese Respiratory: Lungs Clear, No Respiratory Distress Cardiovascular: Regular Rate, Rhythm, No Murmur Gastrointestinal: Normal Bowel Sounds, Soft Neurologic/Psychiatric: Alert, Oriented x3, Normal Mood/Affect Results/Procedures Lab Laboratory Tests 03/14/19 10:15 03/15/19 03:12 Patient resulted labs reviewed. Imaging: Reviewed Imaging Films, Reviewed Imaging Report Assessment/Plan Assessment and Plan Assess & Plan/Chief Complaint Acute on chronic diastolic heart failure Acute respiratory failure with hypoxemia - Pulmonology and Cardiology consulted, appreciate recs Daily weights, strict intake and output Cardiology consulted, appreciate recommendations - Continue IV Lasix 80 mg twice daily - Plan for bronch tomorrow NSTEMI- Type II VT Troponin mildly elevated at 0.04 on admission, trended up to 0.05 Likely secondary to heart failure and chronic kidney disease Cardiology consulted CKD Stage 3b creatinine 1.59, near baseline, trend with Lasix COPD without exacerbation MAT protocol ordered Paroxysmal Atrial fibrillation Continue metoprolol Hold eliquis for bronch tomorrow DVT prophylaxis: On hold for bronch XIN MASTERSON MD Mar 15, 2019 09:36 POS
--- NOTE | 2019-03-15 11:15 | Diagnostic Imaging Report ---
PROCEDURE: CT chest without contrast. TECHNIQUE: Multiple contiguous axial images were obtained through the chest without the use of intravenous contrast. Auto Exposure Controls were utilized during the CT exam to meet ALARA standards for radiation dose reduction. INDICATION: Shortness of breath. COMPARISON: February 01, 2019, September 28, 2018, and April 11, 2017. FINDINGS: Pacer device is again identified with a battery pack overlying the left chest. Calcified mediastinal and hilar lymph nodes are again identified. Precarinal hypodensity is present measuring 1.5 x 1.3 cm, increased in size since the prior examinations. This may relate to a lymph node versus pericardial fluid within a pericardial recess. No additional new adenopathy, though evaluation for adenopathy is limited secondary to lack of intravenous contrast. No aneurysmal dilatation of the thoracic aorta. Mild scattered vascular calcifications. The heart is enlarged, though stable. No large pericardial effusion. No pleural effusion. No pneumothorax. Scarring and atelectasis is identified within the left upper lobe extending into the lingula. Very minimal tree-in-bud nodularity is noted within the left upper lobe, which appears new from the prior examinations. Sub-5 mm subpleural left lower lobe pulmonary nodules are present and unchanged since April 2017 suggesting a benign etiology. Previously noted tree-in-bud nodularity and ground-glass densities within the right lung have improved since the prior examination. However, some persistent tree-in-bud nodularity does remain, particularly within the posterior aspect of the right lower lobe. Increasing interstitial and reticular opacities are seen within the right lung, particularly peripherally. Previously noted sub-5 mm right-sided pulmonary nodules are again identified and stable. These do not appear significantly changed since prior imaging since 2017. Tiny hiatal hernia. Cholelithiasis. Visualized upper abdomen is otherwise unremarkable. Scattered osseous degenerative changes without acute osseous abnormality. IMPRESSION: Previously noted tree-in-bud nodularity and ground-glass nodularity within the lungs has significantly improved since the prior examination, consistent with an improving infectious or inflammatory process. However, persisting scattered regions of tree-in-bud nodularity and reticular opacities are present consistent with improvement though not complete resolution of this underlying abnormality. Additional 5 mm and smaller bilateral pulmonary nodules appearing unchanged since 2017. These are felt to relate to noncalcified granulomas. Precarinal mildly enlarged lymph node versus prominent epicardial recess, appearing more prominent than the prior exam. Cholelithiasis. Evidence of chronic granulomatous disease. Dictated by: Dictated on workstation # [id number]
[2019-03-15] MEDS ORDERED: POTA10TA10 PO (11:20)
[2019-03-15] MEDS ORDERED: CLOT15CR6 TOP (11:20)
[2019-03-15] MEDS ORDERED: CALC0.253 PO (11:20)
[2019-03-15] MEDS ORDERED: CHOL20002 PO (11:20)
[2019-03-15] MEDS ORDERED: ALLO100T PO (11:20)
[2019-03-15] MEDS ORDERED: EPIN11.7 IH (11:20)
[2019-03-15] MEDS ORDERED: TIOT4MIS2 INH (11:20)
[2019-03-15] MEDS ORDERED: GUAI600T43 PO (11:20)
[2019-03-15] MEDS ORDERED: FURO40TA4 PO (11:20)
[2019-03-15] MEDS ORDERED: FOLI-74 PO (11:20)
--- NOTE | 2019-03-15 11:25 | NUR ---
SPOKE WITH THE PATIENT ABOUT HER MEDICATIONS. WE WENT OVER THE EXT MED HX WELL HER BOTTLES SHE HAS HERE WITH HER. SHE STATES THE FOLLOWING THAT HAS BEEN FILLED RECENTLY HAVE BEEN DISCONTINUED: 02-23-19 AMIODARONE 200MG #90 (STOPPED) 02-11-19 LISINOPRIL 10MG #30 (STOPPED) SHE IS FINISHED WITH VITAMIN D WEEKLY DOSES SHE FILLED LASIX 40MG BID #180 02-11-19 HOWEVER SHE STATES THIS WAS DECREASED TO ONCE DAILY. SHE IS UNSURE IF HE INCREASED IT BACK TO TWO DAILY AT HER APPOINTMENT FRIDAY BUT SHE HAS NOT STARTED TAKING IT DIFFERENTLY. SHE WILL VERIFY WITH AFTER SHE IS DISCHARGED. OTC MEDS: TYLENOL PRN ZYRTEC HS PRN ONE A DAY VITAMIN DAILY MUCINEX PRN (HAS 600MG AND 1200MG TABLETS) VITAMIN D DAILY PRIMATENE MIST (BOUGHT THIS OTC WHEN SHE FORGOT HER VENTOLIN INHALER, DOES NOT USE IT IF SHE HAS HER VENTOLIN AVAILABLE)
--- NOTE | 2019-03-15 12:30 | Occupational Therapy Eval ---
OT Evaluation-General/PLF Medical Diagnosis Admission Date Mar 14, 2019 at 10:53 Medical Diagnosis: Acute on chronic diastolic heart failure Onset Date: Mar 14, 2019 Therapy Diagnosis Therapy Diagnosis: Weakness Height/Weight Height (Feet): 5 Height (Inches): 5.00 Weight (Pounds): 243 Weight (Ounces): 0.2 Precautions Precautions/Isolations: Standard Precautions Safety Interventions: None Weight Bear Status Weight Bearing Restriction: Weight Bearing/Tolerated Referral Physician: Dr. Serrano Referral Reason: Activity Tolerance, Self Care, Evaluation/Treatment, Strengthening/ROM Medical History Pertinent Medical History: HTN Additional Medical History Sarcoidosis, defibrillator, hysterectomy Reviewed History: Yes Social History Home: Single Level Current Living Status: Spouse Entry Into Home: Stairs With Railing Steps Into Home: 2 ADL-Prior Level of Function SCALE: Activities may be completed with or without assistive devices. 0-Lumqljuneq-kcaoagu completes the activity by him/herself with no assistance from a helper. 5-Set-up or Clean-up Assistance-helper sets up or cleans up; patient completes activity. Warren assists only prior to or following the activity. 4-Supervision or Touching Assistance-helper provides verbal cues and/or touching/steadying and/or contact guard assistance as patient completes activity. Assistance may be provided throughout the activity or intermittently. 3-Partial/Moderate Assistance-helper does LESS THAN HALF the effort. Warren lifts, holds or supports trunk or limbs, but provides less than half the effort. 2-Substantial/Maximal Assistance-helper does MORE THAN HALF the effort. Warren lifts or holds trunk or limbs and provides more than half the effort. 0-Fcnvpuxxv-ksgftr does ALL the effort. Patient does none of the effort to complete the activity. Or, the assistance of 2 or more helpers is required for the patient to complete the activity. If activity was not attempted, code reason: 7-Patient Refused. 9-Not Applicable-not attempted and the patient did not perform the activity before the current illness, exacerbation or injury. 10-Not Attempted due to Environmental Limitations-(lack of equipment, weather restraints, etc.). 88-Not Attempted due to Medical Conditions or Safety Concerns. ADL PLOF Comments Pt. is independent with daily skills. Self Care: Independent Functional Cognition: Independent DME/Equipment: Bath Chair, Tub/Shower DME/Equipment Comments Pt. will likely need a walker. States that she might have one that was a family member's. 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 Pt. states that she is doing well. Appearance Pt.up in chair listening to a book on tape when OT entered room. Mental Status/Objective Patient Orientation: Person, Place, Time, Situation Attachments: Oxygen Current Glasses/Contacts: Yes Upper Extremity ROM WFL ADL-Treatment Eating (QC): 6 Lower Body Dressing (QC): 6 On/Off Footwear (QC): 6 Toileting Hygiene (QC): 6 (Per pt. report.) Toilet Transfer (QC): 6 (Per pt. report) Pt. seated in chair. States that she has been ambulating to and from bathroom with no difficulty. Demonstrates ability to doff/don socks. Pt. states that she is doing well, but becomes SOA with functional activities at home. Pt. is educated about energy conservation techniques, including planning her day, taking rest breaks, sitting for tasks such as showering and doing dishes, and not bending over to complete tasks. Pt. verbalizes understanding. OT educates pt. on AE to keep from bending over to reach feet, but pt. states that she is not ready for this yet. Pt. is educated on bringing feet up to her, or propping them on stool, so as she does not have to bend over and block lung air. Pt. verbalizes understanding. At this time, OT is not warranted. Will be happy to come back in and re-assess if pt. should need further training or education regarding functional tasks. Education OT Patient Education: Correct positioning, Energy conservation, Modified ADL techniques, Progress toward Goal/Update tx plan, Purpose of tx/functional activities, Reviewed precautions, Rehab process, Transfer techniques Teaching Recipient: Patient Teaching Methods: Demonstration, Discussion Response to Teaching: Verbalize Understanding, Return Demonstration OT Short Term Goals Short Term Goals 1=Demonstrate adherence to instructed precautions during ADL tasks. 2=Patient will verbalize/demonstrate understanding of assistive devices/modifications for ADL. 3=Patient will improve strength/tolerance for activity to enable patient to perform ADL's. OT Airplane Cabin Attendant Goals Airplane Cabin Attendant Goals Time Frame: Mar 15, 2019 Additional Goals: 2-Verbalize Understanding (energy conservation techniques) 1=Demonstrate adherence to instructed precautions during ADL tasks. 2=Patient will verbalize/demonstrate understanding of assistive devices/modifications for ADL. 3=Patient will improve strength/tolerance for activity to enable patient to perform ADL's. OT Education/Plan Problem List/Assessment Assessment: No Skilled OT Needs ID'd Discharge Recommendations Plan/Recommendations: Discontinue OT Treatment Plan/Plan of Care Treatment,Training & Education: Yes Treatment Duration: Mar 15, 2019 Frequency: 5 times per week Estimated Hrs Per Day: .25 hour per day Agreement: Yes Rehab Potential: Good Time/GCodes Start Time: 11:35 Stop Time: 11:55 Total Time Billed (hr/min): 20 Billed Treatment Time 1, EVL Discharge from OT services. No further OT warranted at this time. JAC HELLER OT Mar 15, 2019 12:30 POS
[2019-03-15] MEDS ORDERED: RT-ALBUTEROL/IPRATROPIUM 3 ML (DUONEB) VIAL INH PRN (16:00)
--- NOTE | 2019-03-15 18:11 | Progress Note - Cardiology ---
Cardiology SOAP Progress Note Subjective: She feels her shortness of breath is somewhat improved No cp or palp or syncope Objective: I&O/Vital Signs 03/15/19 03/15/19 03/15/19 03/15/19 06:40 07:00 08:00 08:00 Temp 36.6 Pulse 107 86 Resp 22 B/P (MAP) 118/82 (94) Pulse Ox 94 98 O2 Delivery Nasal Cannula NIV CPAP Nasal Cannula O2 Flow Rate 2.00 2.00 2.00 03/15/19 03/15/19 03/15/19 03/15/19 09:00 10:00 10:49 12:00 Pulse 114 B/P (MAP) 115/82 (93) Pulse Ox 94 96 O2 Delivery Nasal Cannula Nasal Cannula Nasal Cannula NIV CPAP O2 Flow Rate 2.00 2.00 2.00 2.00 03/15/19 03/15/19 03/15/19 03/15/19 12:00 13:00 14:29 14:33 Temp 36.7 36.6 Pulse 112 113 112 Resp 24 B/P (MAP) 107/74 (85) Pulse Ox 97 95 93 O2 Delivery Nasal Cannula Nasal Cannula O2 Flow Rate 2.00 2.00 FiO2 28 03/15/19 16:54 Temp 36.4 Pulse 113 Resp 20 B/P (MAP) 115/75 (88) Pulse Ox 96 O2 Delivery Nasal Cannula O2 Flow Rate 2.00 03/15/19 00:00 Intake Total 875 ml Output Total 300 ml Balance 575 ml Weight (Pounds): 243 Weight (Ounces): 0.2 Weight (Calculated Kilograms): 97.083532 Constitutional: AAO x 3, well-developed, well-nourished Respiratory: No accessory muscle use; other (fair bilat air entry, but diminished at the bases) Cardiovascular: regular rate-rhythm, S1 and S2, systolic murmur (faint LUZ at card base) Gastrointestional: No tender; soft; No guarding, No rebound; audible bowel sounds Extremities: swelling (mild to mod, bilateral leg edema); No clubbing, No cyanosis Neurologic/Psychiatric: oriented x 3, other (moves all limbs equally) Skin: No rash, No ulcerations Results/Procedures: Labs Laboratory Tests 03/14/19 18:25: Troponin I 0.029H 03/15/19 00:25: Troponin I < 0.028 03/15/19 03:12: White Blood Count 5.9, Red Blood Count 3.56L, Hemoglobin 10.5L, Hematocrit 33L, Mean Corpuscular Volume 92, Mean Corpuscular Hemoglobin 30, Mean Corpuscular Hemoglobin Concent 32, Red Cell Distribution Width 13.5, Platelet Count 269, Mean Platelet Volume 10.6H, Neutrophils (%) (Auto) 93H, Lymphocytes (%) (Auto) 6L, Monocytes (%) (Auto) 1, Eosinophils (%) (Auto) 0, Basophils (%) (Auto) 0, Neutrophils # (Auto) 5.5, Lymphocytes # (Auto) 0.3L, Monocytes # (Auto) 0.1, Eosinophils # (Auto) 0.0, Basophils # (Auto) 0.0, Neutrophils % (Manual) 88, Lymphocytes % (Manual) 7, Monocytes % (Manual) 3, Band Neutrophils 2, Blood Morphology Comment NORMAL, Sodium Level 140, Potassium Level 4.0, Chloride Level 101, Carbon Dioxide Level 25, Anion Gap 14, Blood Urea Nitrogen 28H, Creatinine 1.57H, Estimat Glomerular Filtration Rate 40, BUN/Creatinine Ratio 18, Glucose Level 131H, Calcium Level 9.6, Phosphorus Level 4.0, Magnesium Level 2.1, Procalcitonin 0.05 Microbiology 03/14/19 Blood Culture - Preliminary, Resulted No growth Laboratory Tests 03/14/19 10:15 03/15/19 03:12 A/P: Assessment: Multifactorial shortness of breath (see below) Nonischemic cardiomyopathy with an ejection fraction between 30 and 35% on serial echocardiograms, the last one of which was in January 2013. Most recent echocardiogram of May 2017 shows LVEF 55-60%, grade I diastolic dysfunction, trivial MR and TR. Cardiac cath of October [address] Issa showed angiographically normal coronaries Ac diastolic CHF after diuretics reduced on 03/10/19. H/o chronic systolic and diastolic CHF due to nonischemic cardiomyopathy. Minimal troponin elevation due to type 2 MS due to CHF Obesity with obesity-hypoventilation Intolerance to ORAL-inhib / ARB due to worsening renal function Suspected sarcoidosis, followed by Dr Rose. 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 Superficial dehiscence at the device insertion site, healed by secondary intention. No evidence of pocket infection or inflammation Paroxysmal atrial flutter with an intermittent rapid ventricular response. In July 2012, she received one shock ICD for atrial flutter but has not has not received any since. She has not had any syncope or presyncope. Intolerance to digoxin (results in N/V and poor apetite) Chronic LBBB CKD-4, being followed by Dr Huff History of bronchial asthma, managed by Dr Aranda Chronic anticoagulation with warfarin therapy for stroke prophylaxis. MAXIM, treated with CPAP H/o pulm hypertension on echo studies of 2011,2012, 2013, echo studies of 2015 and 2017 have shown PASP approx 30-35 mmHg Plan: * Continue current cardiac regimen * iv diuretics * Monitor labs HENRY SMITH MD FACP FAC CCDS Mar 15, 2019 18:11 POS
[2019-03-15] MEDS: FLUTICASONE NASAL SPRAY (FLONASE) 16 GM BTL NS SCH (21:00)
[2019-03-16] VITALS: BP 93/61
[2019-03-16] MEDS: RT-ALBUTEROL/IPRATROPIUM 3 ML (DUONEB) VIAL INH SCH ×6 (01:40→22:43)
--- NOTE | 2019-03-16 03:36 | Pulmonary Progress Note ---
GRACY CLEARY MED STUDENT 03/16/19 0336: Subjective Date Seen by a Provider: Mar 16, 2019 Time Seen by a Provider: 03:32 Subjective/Events-last exam Patient is a 68 year old female with a past medical history of CHF, A fib on Eliquis, CKD, hypertension, presenting to the ED on 03/14/19 for shortness of breath. No acute events overnight. Patient is sleeping in bed with CPAP. She states that her shortness of breath is fair, but improved. She endorses cough, which is intermittently productive of clear sputum. Sepsis Event Evaluation Height, Weight, BMI Height: 5'5.00" Weight: 243lbs. 0.2oz. 97.822371gr; 41.00 BMI Method:Stated Focused Exam Lactate Level 03/14/19 10:15: Lactic Acid Level 1.10 Exam Exam Vital Signs Date Time Temp Pulse Resp B/P (MAP) Pulse Ox O2 Delivery O2 Flow Rate FiO2 03/16/19 01:40 93 Nasal Cannula 2.00 03/16/19 01:00 110 03/16/19 00:00 36.3 110 18 93/61 (72) 95 NIV CPAP 2.00 03/16/19 00:00 NIV CPAP 2.00 03/15/19 21:34 93 Nasal Cannula 2.00 03/15/19 21:00 Nasal Cannula 2.00 03/15/19 20:00 36.1 115 20 104/71 (82) 94 Nasal Cannula 2.00 03/15/19 20:00 Nasal Cannula 2.00 03/15/19 19:00 111 03/15/19 18:28 94 Nasal Cannula 2.00 03/15/19 16:54 36.4 113 20 115/75 (88) 96 Nasal Cannula 2.00 03/15/19 16:00 NIV CPAP 2.00 03/15/19 14:33 93 Nasal Cannula 2.00 03/15/19 14:29 36.6 112 95 28 03/15/19 13:00 113 03/15/19 12:00 36.7 112 24 107/74 (85) 97 Nasal Cannula 2.00 03/15/19 12:00 NIV CPAP 2.00 03/15/19 10:49 96 Nasal Cannula 2.00 03/15/19 10:00 114 115/82 (93) 94 Nasal Cannula 2.00 03/15/19 09:00 Nasal Cannula 2.00 03/15/19 08:00 36.6 86 22 118/82 (94) 98 Nasal Cannula 2.00 03/15/19 08:00 NIV CPAP 2.00 03/15/19 07:00 107 03/15/19 06:40 94 Nasal Cannula 2.00 03/15/19 04:00 36.1 103 17 110/85 (93) 98 NIV CPAP 2.00 03/15/19 04:00 NIV CPAP 2.00 I & O 03/16/19 07:00 Intake Total 750 ml Output Total 1800 ml Balance -1050 ml Height & Weight Height: 5'5.00" Weight: 243lbs. 0.2oz. 97.391338pj; 41.00 BMI Method:Stated General Appearance: No Apparent Distress, Obese HEENT: PERRL/EOMI, Pharynx Normal Neck: Normal Inspection, Supple Respiratory: Lungs Clear, No Respiratory Distress Cardiovascular: No Murmur, Irregularly Irregular, Tachycardia Capillary Refill: Less Than 3 Seconds Peripheral Pulses: 2+ Dorsalis Pedis (R), 2+ Left Dors-Pedis (L), 2+ Radial Pulses (R), 2+ Radial Pulses (L) Gastrointestinal: normal bowel sounds, non tender, soft Extremity: Normal Inspection, Non Tender, No Pedal Edema Neurologic/Psychiatric: Alert, Oriented x3, Normal Mood/Affect Skin: Normal Color, Warm/Dry Lymphatic: No Adenopathy Other comments Ins and Outs up to 2400 03/15 Intake: 1000 ml NS 850 oral Output: 2200 ml Total: -350 ml Blood culture 03/14/19- No growth to date No current Abx therapy Results Lab Laboratory Tests 03/15/19 03:[address] 03/15/19 IMPRESSION: Previously noted tree-in-bud nodularity and ground-glass nodularity within the lungs has significantly improved since the prior examination, consistent with an improving infectious or inflammatory process. However, persisting scattered regions of tree-in-bud nodularity and reticular opacities are present consistent with improvement though not complete resolution of this underlying abnormality. Additional 5 mm and smaller bilateral pulmonary nodules appearing unchanged since 2017. These are felt to relate to noncalcified granulomas. Precarinal mildly enlarged lymph node versus prominent epicardial recess, appearing more prominent than the prior exam. Chest X ray 03/15/19 Impression: 1. Stable exam of the chest showing cardiomegaly with pulmonary vascular congestion and interstitial pulmonary edema. 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 1,57, near baseline COPD Paroxysmal Atrial fibrillation Continue metoprolol and Eliquis DVT prophylaxis: already receiving therapeutic anticoagulation PHILLIP ROSE DO 03/16/19 0514: Subjective Time Seen by a Provider: 05:09 Exam Exam General Appearance: No Apparent Distress, Obese HEENT: PERRL/EOMI, Pharynx Normal Neck: Normal Inspection Respiratory: Lungs Clear Cardiovascular: Irregularly Irregular, Tachycardia Gastrointestinal: normal bowel sounds, non tender, soft Extremity: Normal Inspection, Non Tender, No Pedal Edema Neurologic/Psychiatric: Alert, Oriented x3 Skin: Normal Color, Warm/Dry Lymphatic: No Adenopathy Assessment/Plan Assessment/Plan Acute on chronic respiratory failure with hypoxia - failed out treatment -Will do bronchoscopy today -Restart eliquis after bronch Acute on chronic diastolic heart failure -Lasix 80mg BID - Hold secondary to renal function. -May 2017 echo LVEF 55-60% NSTEMI -Appreciate cardiology recs -Troponin elevation: type II ND due to CHF CKD -Wellness Spa Manager. 1,57, near baseline COPD Paroxysmal Atrial fibrillation Continue metoprolol and Eliquis DVT prophylaxis: already receiving therapeutic anticoagulation Supervisory-Addendum Brief Verification & Attestation Participated in pt care: history Personally performed: exam, history Care discussed with: Medical Student Procedures: n/a Verification and Attestation of Medical Student E/M Service A medical student performed and documented this service in my presence. I reviewed and verified all information documented by the medical student and made modifications to such information, when appropriate. I personally performed the physical exam and medical decision making. Phillip Rose, Mar 16, 2019,05:10 GRACY CLEARY MED STUDENT Mar 16, 2019 03:36 PHILLIP RONQUILLO DO Mar 16, 2019 05:14 POS
[2019-03-16 03:53] LABS: BASOPHILS % (AUTO) 0 % (0-10); EOSINOPHILS % (AUTO) 0 % (0-10); HEMATOCRIT 32 % (35-52); HEMOGLOBIN 10.2 G/DL (11.5-16.0); LYMPHOCYTES # (AUTO) 0.8 X 10^3 (1.0-4.0); LYMPHOCYTES % (AUTO) 10 % (12-44); MEAN CORPUSCULAR HEMOGLOBIN 29 PG (25-34); MEAN CORPUSCULAR HGB CONC 32 G/DL (32-36); MEAN CORPUSCULAR VOLUME 93 FL (80-99); MEAN PLATELET VOLUME 10.2 FL (7.4-10.4); MONOCYTES # (AUTO) 0.8 X 10^3 (0.0-1.0); MONOCYTES % (AUTO) 10 % (0-12); NEUTROPHILS # (AUTO) 6.1 X 10^3 (1.8-7.8); NEUTROPHILS % (AUTO) 79 % (42-75); PLATELET COUNT 280 10^3/uL (130-400); RED CELL DISTRIBUTION WIDTH 14.2 % (10.0-14.5); WHITE BLOOD COUNT 7.8 10^3/uL (4.3-11.0)
[2019-03-16 04:00] VITALS: BP 109/75
[2019-03-16 04:07] LABS: CALCIUM 9.6 MG/DL (8.5-10.1); CREATININE SERUM 1.83 MG/DL (0.60-1.30); MAGNESIUM 2.2 MG/DL (1.6-2.4); PHOSPHORUS 3.4 MG/DL (2.3-4.7); POTASSIUM 4.3 MMOL/L (3.6-5.0)
[2019-03-16] MEDS ORDERED: LACTATED RINGERS 1,000 ML IV SCH (05:15)
[2019-03-16] MEDS: RT-ADVAIR HFA 115/21 MCG PER PUFF IH SCH ×2 (05:47→18:53)
[2019-03-16] MEDS ORDERED: fentaNYL INJECTION 100 MCG/2 ML AMP ONE (06:19)
[2019-03-16] MEDS ORDERED: MIDAZOLAM 5 MG/5 ML (VERSED) VIAL ONE (06:19)
--- NOTE | 2019-03-16 06:55 | NUR ---
Timeline Note 0639 Dr. Rose at bedside with Bharathi TAYLOR and this RN for bedside bronchoscopy. 0640 2mg Versed IV given 0641 50mcg Fentanyl IV given 0642 Bronchoscopy started 0645 25mcg Fentanyl IV given 0645 1mg Versed IV given 0649 Bronchoscopy completed at this time. Patient resting comfortably, vital signs stable: HR 105 BP 118/91 O2 94% R 14 0651 2mg Versed and 25 mcg Fentanyl wasted by this RN, witnessed by HARRIET Valencia.
--- NOTE | 2019-03-16 07:30 | Diagnostic Imaging Report ---
INDICATION: Dyspnea. COMPARISON: 03/15/2019 FINDINGS: Frontal radiograph view of the chest was obtained and again demonstrates marked cardiomegaly. Pulmonary vasculature however is within normal limits on this exam. Left-sided AICD is noted. Lungs appear clear. There is no focal consolidation, large effusion, no pneumothorax. Osseous structures show no new acute abnormalities. IMPRESSION: 1. Persistent moderate cardiomegaly, but no convincing evidence of failure on today's study. Dictated by: Dictated on workstation # [id number]
[2019-03-16] MEDS ORDERED: LIDOCAINE PF 1% 2 ML AMP IJ ONE (07:52)
[2019-03-16] MEDS ORDERED: LIDOCAINE PF 2% 5 ML (XYLOCAINE) VIAL INJ ONE (07:52)
[2019-03-16] MEDS ORDERED: LIDOCAINE JELLY 2% 6 ML SYRINGE MM ONE (07:52)
[2019-03-16 08:00] VITALS: BP 118/80
--- NOTE | 2019-03-16 08:05 | Pulmonary Procedures ---
Pulmonary Procedures Date of Procedure Date of Service: Mar 16, 2019 Bronch Bronchoscopy with bilateral bronchial washes. Preop DX persistent cough pneumonia - failed out pt tx. Postop DX: same - no endobronchial mass Complications: none After informed consent obtained and formal time out pt was sedated using Fe ntanyl and Versed. Bronchoscope was advanced through the nare and vocal cords. 1% lidocaine was used to anesthetize vocal cords, epiglottis, vickey, and left/right main stem bronchus. An anatomical tour was undertaken down to the segmental bronchi bilaterally. No endobronchial lesions noted. Bronchoscopy with bilateral bronchial washes were obtained. Pt tolerated procedure well. No complications noted. Stat CXR is pending. PHILLIP MADRIGAL DO Mar 16, 2019 08:05 POS
--- NOTE | 2019-03-16 08:45 | Diagnostic Imaging Report ---
INDICATION: Post bronchoscopy. TECHNIQUE/COMPARISON: A frontal chest was obtained at 0829 hours and is compared to 0519 hours the same day. FINDINGS: There is prominent cardiomegaly. The pacemaker device is unchanged. There is mild central vascular congestion. There is some minimal right basilar infiltrate versus atelectasis. There is no pneumothorax or pleural fluid. IMPRESSION: Cardiomegaly. No pneumothorax or pleural fluid following bronchoscopy. There is some minimal infiltrate or atelectasis in the right lung base. Dictated by: Dictated on workstation # [id number]
[2019-03-16] MEDS: APIXABAN 5 MG (ELIQUIS) TABLET PO SCH ×2 (08:48→21:25)
[2019-03-16] MEDS: meTOprolol SUCCINATE 100 MG (TOPROL XL) TAB PO SCH (08:48)
[2019-03-16] MEDS: DOCUSATE SODIUM 100 MG (COLACE) CAP PO SCH ×2 (08:48→21:25)
[2019-03-16] MEDS: SENNOSIDES 8.6 MG (SENOKOT) TAB PO SCH ×2 (08:48→21:25)
--- NOTE | 2019-03-16 09:03 | Progress Note - Cardiology ---
Cardiology SOAP Progress Note Subjective: S/P bronch by Dr. Rose. She denies any CP or palpitations. Continues to have cough. Continues to c/o SOB which is chronic and unchanged. Objective: I&O/Vital Signs 03/16/19 03/16/19 03/16/19 03/16/19 05:47 07:00 07:00 07:48 Pulse 113 Resp 18 Pulse Ox 95 95 O2 Delivery Nasal Cannula Nasal Cannula O2 Flow Rate 2.00 2.00 03/16/19 03/16/19 03/16/19 03/16/19 08:00 08:00 09:00 11:08 Temp 37.0 Pulse 97 Resp 15 B/P (MAP) 118/80 (93) Pulse Ox 94 84 O2 Delivery Nasal Cannula Nasal Cannula Nasal Cannula Room Air O2 Flow Rate 2.00 2.00 2.00 03/16/19 03/16/19 03/16/19 03/16/19 12:00 12:00 13:00 15:08 Temp 36.5 Pulse 105 117 Resp 18 B/P (MAP) 110/65 (80) Pulse Ox 97 92 O2 Delivery Nasal Cannula Nasal Cannula Nasal Cannula O2 Flow Rate 2.00 2.00 2.00 03/16/19 03/16/19 15:33 16:00 Temp 36.3 Pulse 105 Resp 18 B/P (MAP) 118/64 (82) Pulse Ox 97 O2 Delivery Nasal Cannula Nasal Cannula O2 Flow Rate 2.00 2.00 03/15/19 23:59 Intake Total 750 ml Output Total 1800 ml Balance -1050 ml Weight (Pounds): 243 Weight (Ounces): 0.2 Weight (Calculated Kilograms): 97.822869 Constitutional: AAO x 3, well-developed, well-nourished Respiratory: No accessory muscle use; rhonchi (expiratory), other (fair bilat air entry, but diminished at the bases; prolonged exp phase) Cardiovascular: regular rate-rhythm, S1 and S2, systolic murmur (faint LUZ at card base) Gastrointestional: No tender; soft; No guarding, No rebound; audible bowel sounds Extremities: swelling (mild bilateral leg edema); No clubbing, No cyanosis Neurologic/Psychiatric: oriented x 3, other (moves all limbs equally) Skin: No rash, No ulcerations Results/Procedures: Labs Laboratory Tests 03/16/19 03:20: White Blood Count 7.8, Red Blood Count 3.50L, Hemoglobin 10.2L, Hematocrit 32L, Mean Corpuscular Volume 93, Mean Corpuscular Hemoglobin 29, Mean Corpuscular Hemoglobin Concent 32, Red Cell Distribution Width 14.2, Platelet Count 280, Mean Platelet Volume 10.2, Neutrophils (%) (Auto) 79H, Lymphocytes (%) (Auto) 10L, Monocytes (%) (Auto) 10, Eosinophils (%) (Auto) 0, Basophils (%) (Auto) 0, Neutrophils # (Auto) 6.1, Lymphocytes # (Auto) 0.8L, Monocytes # (Auto) 0.8, Eosinophils # (Auto) 0.0, Basophils # (Auto) 0.0, Sodium Level 141, Potassium Level 4.3, Chloride Level 103, Carbon Dioxide Level 27, Anion Gap 11, Blood Urea Nitrogen 44H, Creatinine 1.83H, Estimat Glomerular Filtration Rate 33, BUN/Creatinine Ratio 24, Glucose Level 112H, Calcium Level 9.6, Phosphorus Level 3.4, Magnesium Level 2.2 Microbiology 03/14/19 Blood Culture - Preliminary, Resulted No growth Procedures NAME: MARQUIS SHEEHAN [facility] REC#: [id number] PT STATUS: ADM IN : 1950 PHYSICIAN: PHILLIP ROSE DO ADMIT DATE: 03/14/19/[facility] Draft Date of Exam:03/16/19 CHEST 1 VIEW, AP/PA ONLY INDICATION: Post bronchoscopy. TECHNIQUE/COMPARISON: A frontal chest was obtained at 0829 hours and is compared to 0519 hours the same day. FINDINGS: There is prominent cardiomegaly. The pacemaker device is unchanged. There is mild central vascular congestion. There is some minimal right basilar infiltrate versus atelectasis. There is no pneumothorax or pleural fluid. IMPRESSION: Cardiomegaly. No pneumothorax or pleural fluid following bronchoscopy. There is some minimal infiltrate or atelectasis in the right lung base. Dictated on workstation # [id number] Dict: 03/16/19 0841 Trans: 03/16/19 0844 [id number] Interpreted by: FERNANDO ELIAS MD Electronically signed by: A/P: Assessment: Multifactorial shortness of breath (see below) Nonischemic cardiomyopathy with a h/o ejection fraction between 30 and 35%. Echocardiogram of May 2017, however, shows LVEF 55-60%, grade I diastolic dysfunction, trivial MR and TR. Last echo of 03/15/19 shows LVEF 55-60%, enlargement of LA, mod to sev MR, mod TR, RVSP 40 mmHg Cardiac cath of October [address] Issa showed angiographically normal coronaries Ac diastolic CHF after diuretics reduced on 03/10/19. H/o chronic systolic and diastolic CHF due to nonischemic cardiomyopathy. Minimal troponin elevation due to type 2 KS due to CHF Obesity with obesity-hypoventilation Intolerance to ORAL-inhib / ARB due to worsening renal function Suspected sarcoidosis, followed by Dr Rose. 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 Superficial dehiscence at the device insertion site, healed by secondary intention. No evidence of pocket infection or inflammation Paroxysmal atrial flutter with an intermittent rapid ventricular response. In July 2012, she received one shock ICD for atrial flutter but has not has not received any since. She has not had any syncope or presyncope. Intolerance to digoxin (results in N/V and poor apetite) Chronic LBBB CKD-4, being followed by Dr Huff History of bronchial asthma, managed by Dr Aranda Chronic anticoagulation with Eliquis therapy for stroke prophylaxis. MAXIM, treated with CPAP H/o pulm hypertension on echo studies of 2011,2012, 2013, echo studies of 2015 and 2017 have shown PASP approx 30-35 mmHg Plan: * Continue current cardiac regimen * Oral diuretics * Monitor labs * OK to discharge home from cardiac stand point with out pt f/u Physician Assessment Physician Assessment Shortness of better somewhat improved, but not resolved. Still short of breath. Does not report cp. Has gen malaise and weakness. Denies palp or syncope Lungs: dec bs at bases Cor: reg Ext: no c/c, mild edema A&R * As documented in our note above that I updated (italics) and as noted below * Complex management due to multiple CV issues and other comorbidities * Diuretics increased * Monitor labs * I discussed her case with Dr Rose in detail * I discussed echo findings with her. May need further w/u for consideration of intervention to mitral valve. She is planning to go home tomorrow. Will consider further w/u if symptoms stay significant VIRGIL CORNEJO Mar 16, 2019 09:03 HENRY ROD MD FACP FAC CCDS Mar 16, 2019 16:59 POS
[2019-03-16] MEDS ORDERED: FUROSEMIDE 40 MG (LASIX) TAB PO ONE (09:15)
--- NOTE | 2019-03-16 09:48 | Discharge Inst-Simple/Standard ---
Discharge Inst-Standard Reconcile Patient Problems Problems Reviewed?: Yes Discharge Medications New, Converted or Re-Newed RX: Transmitted to Pharmacy Patient Instructions/Follow Up Plan of Care/Instructions/FU: Please continue to take your medications as written. Please follow up with your PCP in the next week to follow up this hospital stay and with Dr Rose to follow up results from your bronchoscopy. Activity as Tolerated: Yes Discharge Diet: Cardiac Diet Return to The Hospital For: Chest pain, shortness of breath, fever, increasing oxygen needs, if you feel you are getting worse. Planned Outpatient Orders/Ref. Pneu Vac Indicated: Yes XIN MASTERSON MD Mar 16, 2019 09:48 POS
--- NOTE | 2019-03-16 09:52 | Discharge Summary ---
Diagnosis/Chief Complaint Date of Admission Mar 14, 2019 at 10:53 Date of Discharge Discharge Date: Mar 16, 2019 Admission Diagnosis Acute on chronic diastolic heart failure Primary Care No,Local Physician Discharge Diagnosis (1) Acute on chronic diastolic heart failure (2) COPD without exacerbation (3) Acute respiratory failure with hypoxemia (4) Paroxysmal atrial flutter (5) Nonischemic cardiomyopathy (6) ICD (implantable cardioverter-defibrillator) in place (7) CKD (chronic kidney disease) Discharge Summary Discharge Physical Exam Allergies: Coded Allergies: No Known Drug Allergies (Unverified , 11/03/11) Vitals & I&Os Vital Signs Date Time Temp Pulse Resp B/P (MAP) Pulse Ox O2 Delivery O2 Flow Rate FiO2 03/16/19 11:08 84 Room Air 03/16/19 09:00 2.00 03/16/19 08:00 37.0 97 15 118/80 (93) 03/15/19 14:29 28 Hospital Course Labs (last 24 hrs) Laboratory Tests 03/16/19 03:20: White Blood Count 7.8, Red Blood Count 3.50L, Hemoglobin 10.2L, Hematocrit 32L, Mean Corpuscular Volume 93, Mean Corpuscular Hemoglobin 29, Mean Corpuscular Hemoglobin Concent 32, Red Cell Distribution Width 14.2, Platelet Count 280, Mean Platelet Volume 10.2, Neutrophils (%) (Auto) 79H, Lymphocytes (%) (Auto) 10L, Monocytes (%) (Auto) 10, Eosinophils (%) (Auto) 0, Basophils (%) (Auto) 0, Neutrophils # (Auto) 6.1, Lymphocytes # (Auto) 0.8L, Monocytes # (Auto) 0.8, Eosinophils # (Auto) 0.0, Basophils # (Auto) 0.0, Sodium Level 141, Potassium Level 4.3, Chloride Level 103, Carbon Dioxide Level 27, Anion Gap 11, Blood Urea Nitrogen 44H, Creatinine 1.83H, Estimat Glomerular Filtration Rate 33, BUN/Creatinine Ratio 24, Glucose Level 112H, Calcium Level 9.6, Phosphorus Level 3.4, Magnesium Level 2.2 Microbiology 03/14/19 Blood Culture - Preliminary, Resulted No growth Patient resulted labs reviewed. Pending Labs Imaging: Reviewed Imaging Films, Reviewed Imaging Report Discharge Home Medications: Active Scripts Active Lasix (Furosemide) 40 Mg Tablet 40 Mg PO BID Reported Spiriva Respimat 2.5MCG/ACTUATION (Tiotropium [place]) 4 Gm Mist.inhal 2 Puff INH DAILY Potassium Chloride 10 Meq Tablet.er 10 Meq PO DAILY Allopurinol 100 Mg Tablet 100 Mg PO DAILY Calcitriol 0.25 Mcg Capsule 0.25 Mcg PO MOWEFR Primatene Mist (Epinephrine) 11.7 Gm Hfa.aer.ad 2 Puff IH QID PRN USES WHEN SHE DOES NOT HAVE VENTOLIN One Daily For Women Tablet (Folic Acid/Mv,Fe,Other Min) 1 Each Tablet 1 Tab PO DAILY Mucinex (Guaifenesin) 600 Mg Tab.er.12h 600 Mg PO BID PRN Clotrimazole-Betamethasone Crm (Clotrimazole/Betamethasone Dip) 15 Gm Cream..g. TOP BID Vitamin D-3 (Cholecalciferol (Vitamin D3)) 2,000 Unit Capsule 2,000 Unit PO DAILY Tylenol (Acetaminophen) 325 Mg Tablet 650 Mg PO Q6H PRN Fluticasone Propionate 16 Gm Astatula.susp 1 Astatula NS HS Ventolin Hfa (Albuterol Sulfate) 18 Gm Hfa.aer.ad 2 Puff INH QID PRN Metoprolol Tartrate 50 Mg Tablet 50 Mg PO BID Eliquis (Apixaban) 5 Mg Tablet 5 Mg PO BID Advair 250-50 Diskus (Fluticasone/Salmeterol) 1 Each Blst.w.dev 1 Puff IH BID Cetirizine HCl 10 Mg Tablet 10 Mg PO HS PRN Instructions to patient/family Please see electronic discharge instructions given to patient. Problem Qualifiers (1) CKD (chronic kidney disease): Chronic kidney disease stage: stage 4 (severe) Qualified Codes: N18.4 - Chronic kidney disease, stage 4 (severe) XIN MASTERSON MD Mar 16, 2019 09:52 POS
--- NOTE | 2019-03-16 10:01 | NUR ---
CM/SS patient is trying to find transportation. Transportation voucher was provided to the RN for patient if she would need it.
[2019-03-16] MEDS ORDERED: FURO-124 PO (10:56)
[2019-03-16 12:00] VITALS: BP 110/65
[2019-03-16] MEDS: predniSONE 20 MG TAB PO SCH (12:24)
--- NOTE | 2019-03-16 13:46 | Progress Note - Hospitalist ---
Subjective HPI/CC On Admission Date Seen by Provider: Mar 16, 2019 Time Seen by Provider: 08:15 Malathi Hurley is a 68-year-old female with past medical history of hypertension, atrial flutter, sarcoidosis, nonischemic cardiomyopathy, or failure, who presented with shortness of breath. She reports that the shortness of breath has been getting worse over the past couple months. She is not sure if she has been gaining weight. She hasn't noticed any increase in the swelling in her legs. She denies any fevers or chills. She has a dry cough. She denies any chest pain. She reports chest tightness, but none at this time. She denies any abdominal pain, nausea, vomiting, diarrhea, or constipation. She denies any dysuria. She has been compliant with her medications. Subjective/Events-last exam Pt reports feeling better this morning. Had bronch done and no complaints or complications. Received called later that developed coughing and wheezing and felt unsafe to DC to DC plan held. Focused Exam Lactate Level 03/14/19 10:15: Lactic Acid Level 1.10 Objective Exam Vital Signs Vital Signs Date Time Temp Pulse Resp B/P (MAP) Pulse Ox O2 Delivery O2 Flow Rate FiO2 03/16/19 11:08 84 Room Air 03/16/19 09:00 2.00 03/16/19 08:00 37.0 97 15 118/80 (93) 03/15/19 14:29 28 Capillary Refill : Less Than 3 Seconds General Appearance: No Apparent Distress, Chronically ill, Obese Respiratory: Lungs Clear, No Respiratory Distress Cardiovascular: No Murmur, Irregularly Irregular Gastrointestinal: Normal Bowel Sounds, Soft Neurologic/Psychiatric: Alert, Oriented x3 Results/Procedures Lab Laboratory Tests 03/16/19 03:20 Patient resulted labs reviewed. Imaging: Reviewed Imaging Films, Reviewed Imaging Report Assessment/Plan Assessment and Plan Assess & Plan/Chief Complaint Acute on chronic diastolic heart failure Acute respiratory failure with hypoxemia - Pulmonology and Cardiology consulted, appreciate recs Cardiology consulted, appreciate recommendations - Continue Lasix, switched to oral COPD MAT protocol ordered - Will start on prednisone since wheezing - Bronch done, cultures pending NSTEMI- Type II FL Likely secondary to heart failure and chronic kidney disease Cardiology consulted CKD Stage 3b creatinine near baseline but up slightly today, will decrease lasix dose Paroxysmal Atrial fibrillation Continue metoprolol - Resume eliquis DVT prophylaxis: Eliquis Diagnosis/Problems Diagnosis/Problems (1) Acute on chronic diastolic heart failure (2) COPD without exacerbation (3) Acute respiratory failure with hypoxemia (4) Paroxysmal atrial flutter (5) Nonischemic cardiomyopathy (6) ICD (implantable cardioverter-defibrillator) in place (7) CKD (chronic kidney disease) Qualifiers: Chronic kidney disease stage: stage 4 (severe) Qualified Codes: N18.4 - Chronic kidney disease, stage 4 (severe) XIN MASTERSON MD Mar 16, 2019 13:46 POS
[2019-03-16 16:00] VITALS: BP 118/64
[2019-03-16 20:00] VITALS: BP 113/78
[2019-03-16] MEDS: FLUTICASONE NASAL SPRAY (FLONASE) 16 GM BTL NS SCH (21:25)
[2019-03-17] VITALS: BP 96/65
[2019-03-17] MEDS: RT-ALBUTEROL/IPRATROPIUM 3 ML (DUONEB) VIAL INH SCH ×3 (02:08→10:42)
[2019-03-17 03:50] LABS: BASOPHILS % (AUTO) 0 % (0-10); EOSINOPHILS % (AUTO) 0 % (0-10); HEMATOCRIT 32 % (35-52); HEMOGLOBIN 10.2 G/DL (11.5-16.0); LYMPHOCYTES # (AUTO) 0.4 X 10^3 (1.0-4.0); LYMPHOCYTES % (AUTO) 5 % (12-44); MEAN CORPUSCULAR HEMOGLOBIN 29 PG (25-34); MEAN CORPUSCULAR HGB CONC 32 G/DL (32-36); MEAN CORPUSCULAR VOLUME 93 FL (80-99); MEAN PLATELET VOLUME 10.2 FL (7.4-10.4); MONOCYTES # (AUTO) 0.4 X 10^3 (0.0-1.0); MONOCYTES % (AUTO) 6 % (0-12); NEUTROPHILS # (AUTO) 5.9 X 10^3 (1.8-7.8); NEUTROPHILS % (AUTO) 89 % (42-75); PLATELET COUNT 273 10^3/uL (130-400); RED CELL DISTRIBUTION WIDTH 13.9 % (10.0-14.5); WHITE BLOOD COUNT 6.6 10^3/uL (4.3-11.0)
[2019-03-17 04:00] VITALS: BP 129/82
[2019-03-17 04:46] LABS: CALCIUM 9.3 MG/DL (8.5-10.1); CREATININE SERUM 1.41 MG/DL (0.60-1.30); MAGNESIUM 2.2 MG/DL (1.6-2.4); PHOSPHORUS 3.4 MG/DL (2.3-4.7); POTASSIUM 4.6 MMOL/L (3.6-5.0)
--- NOTE | 2019-03-17 05:51 | Diagnostic Imaging Report ---
Portable erect AP chest at 0406 hours. INDICATION: Dyspnea. FINDINGS: The cardiomegaly and the left-sided defibrillator device seen on the prior exam of 03/16/2019 are again evident and no different. There is still a small amount of atelectasis/infiltrate involving the right lung base. This essentially no different. The lungs are otherwise unchanged. The mediastinum is not widened. The osseous structures are intact. IMPRESSION: Stable chest. There has been no significant change since the prior exam. A followup study would be recommended for continued evaluation. Dictated by: Dictated on workstation # [id number]
[2019-03-17] MEDS: predniSONE 20 MG TAB PO SCH (07:04)
[2019-03-17] MEDS: RT-ADVAIR HFA 115/21 MCG PER PUFF IH SCH (07:51)
[2019-03-17 08:00] VITALS: BP 120/79
[2019-03-17] MEDS: meTOprolol SUCCINATE 100 MG (TOPROL XL) TAB PO SCH (08:05)
[2019-03-17] MEDS: SENNOSIDES 8.6 MG (SENOKOT) TAB PO SCH (08:05)
[2019-03-17] MEDS: APIXABAN 5 MG (ELIQUIS) TABLET PO SCH (08:05)
[2019-03-17] MEDS: DOCUSATE SODIUM 100 MG (COLACE) CAP PO SCH (08:06)
[2019-03-17] MEDS ORDERED: FUROSEMIDE 40 MG (LASIX) TAB PO SCH (09:00)
--- NOTE | 2019-03-17 09:03 | Discharge Summary ---
Diagnosis/Chief Complaint Date of Admission Mar 14, 2019 at 10:53 Date of Discharge Discharge Date: Mar 16, 2019 Admission Diagnosis Acute on chronic diastolic heart failure Primary Care No,Local Physician Discharge Diagnosis (1) Acute on chronic diastolic heart failure (2) COPD without exacerbation (3) Acute respiratory failure with hypoxemia (4) Paroxysmal atrial flutter (5) Nonischemic cardiomyopathy (6) ICD (implantable cardioverter-defibrillator) in place (7) CKD (chronic kidney disease) Discharge Summary Procedures/Consulations Dr Rose- Pulm Dr Wilson- Cardiology Discharge Physical Exam Allergies: Coded Allergies: No Known Drug Allergies (Unverified , 11/03/11) Vitals & I&Os Vital Signs Date Time Temp Pulse Resp B/P (MAP) Pulse Ox O2 Delivery O2 Flow Rate FiO2 03/17/19 07:51 96 Nasal Cannula 3.00 03/17/19 06:53 96 03/17/19 04:00 36.1 18 129/82 (98) 03/15/19 14:29 28 General Appearance: No Apparent Distress, WD/WN Respiratory: Lungs Clear, No Respiratory Distress Cardiovascular: Regular Rate, Rhythm, No Murmur Neurologic/Psychiatric: Alert, Oriented x3 Hospital Course patient is a 68-year-old female with a past medical history of CHF, COPD, a-fib and was admitted for dyspnea likely multifactorial in etiology. She was diuresed due to an elevated BMP and symptoms improved but then she developed wheezing. She was started on a prednisone burst which resolved her symptoms. She was discharged home in stable condition to follow up with her primary care doctor, Dr. Rose, and Dr. Wilson. Labs (last 24 hrs) Laboratory Tests 03/17/19 03:25: White Blood Count 6.6, Red Blood Count 3.48L, Hemoglobin 10.2L, Hematocrit 32L, Mean Corpuscular Volume 93, Mean Corpuscular Hemoglobin 29, Mean Corpuscular Hemoglobin Concent 32, Red Cell Distribution Width 13.9, Platelet Count 273, Mean Platelet Volume 10.2, Neutrophils (%) (Auto) 89H, Lymphocytes (%) (Auto) 5L , Monocytes (%) (Auto) 6, Eosinophils (%) (Auto) 0, Basophils (%) (Auto) 0, Neutrophils # (Auto) 5.9, Lymphocytes # (Auto) 0.4L, Monocytes # (Auto) 0.4, Eosinophils # (Auto) 0.0, Basophils # (Auto) 0.0, Sodium Level 140, Potassium Level 4.6, Chloride Level 101, Carbon Dioxide Level 28, Anion Gap 11, Blood Urea Nitrogen 39H, Creatinine 1.41H, Estimat Glomerular Filtration Rate 45, BUN/Creatinine Ratio 28, Glucose Level 110H, Calcium Level 9.3, Phosphorus Level 3.4, Magnesium Level 2.2 Microbiology 03/14/19 Blood Culture - Preliminary, Resulted No growth Patient resulted labs reviewed. Pending Labs Laboratory Tests 03/17/19 03:25: White Blood Count 6.6, Red Blood Count 3.48, Hemoglobin 10.2, Hematocrit 32, Mean Corpuscular Volume 93, Mean Corpuscular Hemoglobin 29, Mean Corpuscular Hemoglobin Concent 32, Red Cell Distribution Width 13.9, Platelet Count 273, Mean Platelet Volume 10.2, Neutrophils (%) (Auto) 89, Lymphocytes (%) (Auto) 5, Monocytes (%) (Auto) 6, Eosinophils (%) (Auto) 0, Basophils (%) (Auto) 0, Neutrophils # (Auto) 5.9, Lymphocytes # (Auto) 0.4, Monocytes # (Auto) 0.4, Eosinophils # (Auto) 0.0, Basophils # (Auto) 0.0, Sodium Level 140, Potassium Level 4.6, Chloride Level 101, Carbon Dioxide Level 28, Anion Gap 11, Blood Urea Nitrogen 39, Creatinine 1.41, Estimat Glomerular Filtration Rate 45, BUN/Creatinine Ratio 28, Glucose Level 110, Calcium Level 9.3, Phosphorus Level 3.4, Magnesium Level 2.2 Imaging: Reviewed Imaging Films, Reviewed Imaging Report Discussion & Recommendations Discharge Planning: >30 minutes discharge planning Discharge Home Medications: Active Scripts Active Lasix (Furosemide) 40 Mg Tablet 40 Mg PO BID Reported Spiriva Respimat 2.5MCG/ACTUATION (Tiotropium [place]) 4 Gm Mist.inhal 2 Puff INH DAILY Potassium Chloride 10 Meq Tablet.er 10 Meq PO DAILY Allopurinol 100 Mg Tablet 100 Mg PO DAILY Calcitriol 0.25 Mcg Capsule 0.25 Mcg PO MOWEFR Primatene Mist (Epinephrine) 11.7 Gm Hfa.aer.ad 2 Puff IH QID PRN USES WHEN SHE DOES NOT HAVE VENTOLIN One Daily For Women Tablet (Folic Acid/Mv,Fe,Other Min) 1 Each Tablet 1 Tab PO DAILY Mucinex (Guaifenesin) 600 Mg Tab.er.12h 600 Mg PO BID PRN Clotrimazole-Betamethasone Crm (Clotrimazole/Betamethasone Dip) 15 Gm Cream..g. TOP BID Vitamin D-3 (Cholecalciferol (Vitamin D3)) 2,000 Unit Capsule 2,000 Unit PO DAILY Tylenol (Acetaminophen) 325 Mg Tablet 650 Mg PO Q6H PRN Fluticasone Propionate 16 Gm [place].susp 1 [place] NS HS Ventolin Hfa (Albuterol Sulfate) 18 Gm Hfa.aer.ad 2 Puff INH QID PRN Metoprolol Tartrate 50 Mg Tablet 50 Mg PO BID Eliquis (Apixaban) 5 Mg Tablet 5 Mg PO BID Advair 250-50 Diskus (Fluticasone/Salmeterol) 1 Each Blst.w.dev 1 Puff IH BID Cetirizine HCl 10 Mg Tablet 10 Mg PO HS PRN Instructions to patient/family Please see electronic discharge instructions given to patient. Problem Qualifiers (1) CKD (chronic kidney disease): Chronic kidney disease stage: stage 4 (severe) Qualified Codes: N18.4 - Chronic kidney disease, stage 4 (severe) XIN MASTERSON MD Mar 17, 2019 09:03 POS
[2019-03-17] MEDS ORDERED: PRD20T PO (09:04)
--- NOTE | 2019-03-17 09:21 | Progress Note - Cardiology ---
Cardiology SOAP Progress Note Subjective: Shortness of breath better No cp or palp or syncope Chronic gen malaise Objective: I&O/Vital Signs 03/16/19 03/17/19 03/17/19 03/17/19 22:43 00:00 00:00 01:00 Temp 36.2 Pulse 110 102 Resp 17 B/P (MAP) 96/65 (75) Pulse Ox 97 98 O2 Delivery NIV CPAP NIV CPAP NIV CPAP O2 Flow Rate 2.00 2.00 2.00 03/17/19 03/17/19 03/17/19 03/17/19 02:08 04:00 04:00 06:53 Temp 36.1 Pulse 106 96 Resp 18 B/P (MAP) 129/82 (98) Pulse Ox 93 97 O2 Delivery NIV CPAP NIV CPAP Nasal Cannula O2 Flow Rate 2.00 2.00 2.00 03/17/19 07:51 Pulse Ox 96 O2 Delivery Nasal Cannula O2 Flow Rate 3.00 03/16/19 23:59 Intake Total 1825 ml Output Total 300 ml Balance 1525 ml Weight (Pounds): 243 Weight (Ounces): 0.2 Weight (Calculated Kilograms): 97.298389 Constitutional: AAO x 3, well-developed, well-nourished Respiratory: No accessory muscle use; rhonchi (expiratory), other (fair bilat air entry, but diminished at the bases; prolonged exp phase) Cardiovascular: regular rate-rhythm, S1 and S2, systolic murmur (faint LUZ at card base) Gastrointestional: No tender; soft; No guarding, No rebound; audible bowel sounds Extremities: swelling (mild bilateral leg edema); No clubbing, No cyanosis Neurologic/Psychiatric: oriented x 3, other (moves all limbs equally) Skin: No rash, No ulcerations Results/Procedures: Labs Laboratory Tests 03/17/19 03:25: White Blood Count 6.6, Red Blood Count 3.48L, Hemoglobin 10.2L, Hematocrit 32L, Mean Corpuscular Volume 93, Mean Corpuscular Hemoglobin 29, Mean Corpuscular Hemoglobin Concent 32, Red Cell Distribution Width 13.9, Platelet Count 273, Mean Platelet Volume 10.2, Neutrophils (%) (Auto) 89H, Lymphocytes (%) (Auto) 5L , Monocytes (%) (Auto) 6, Eosinophils (%) (Auto) 0, Basophils (%) (Auto) 0, Neutrophils # (Auto) 5.9, Lymphocytes # (Auto) 0.4L, Monocytes # (Auto) 0.4, Eosinophils # (Auto) 0.0, Basophils # (Auto) 0.0, Sodium Level 140, Potassium Level 4.6, Chloride Level 101, Carbon Dioxide Level 28, Anion Gap 11, Blood Urea Nitrogen 39H, Creatinine 1.41H, Estimat Glomerular Filtration Rate 45, BUN/Creatinine Ratio 28, Glucose Level 110H, Calcium Level 9.3, Phosphorus Level 3.4, Magnesium Level 2.2 Microbiology 03/14/19 Blood Culture - Preliminary, Resulted No growth Laboratory Tests 03/16/19 03:20 03/17/19 03:25 A/P: Assessment: Multifactorial shortness of breath (see below) Nonischemic cardiomyopathy with a h/o ejection fraction between 30 and 35%. Echocardiogram of May 2017, however, shows LVEF 55-60%, grade I diastolic dysfunction, trivial MR and TR. Last echo of 03/15/19 shows LVEF 55-60%, enlargement of LA, mod to sev MR, mod TR, RVSP 40 mmHg Cardiac cath of October [address] Issa showed angiographically normal coronaries Ac diastolic CHF after diuretics reduced on 03/10/19. H/o chronic systolic and diastolic CHF due to nonischemic cardiomyopathy. Minimal troponin elevation due to type 2 GA due to CHF Obesity with obesity-hypoventilation Intolerance to ORAL-inhib / ARB due to worsening renal function Suspected sarcoidosis, followed by Dr Rose. 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 Superficial dehiscence at the device insertion site, healed by secondary intention. No evidence of pocket infection or inflammation Paroxysmal atrial flutter with an intermittent rapid ventricular response. In July 2012, she received one shock ICD for atrial flutter but has not has not received any since. She has not had any syncope or presyncope. Intolerance to digoxin (results in N/V and poor apetite) Chronic LBBB CKD-4, being followed by Dr Huff History of bronchial asthma, managed by Dr Aranda Chronic anticoagulation with Eliquis therapy for stroke prophylaxis. MAXIM, treated with CPAP H/o pulm hypertension on echo studies of 2011,2013, 2013, echo studies of 2016 and 2018 have shown PASP approx 30-35 mmHg Plan: * I again reviewed her CV issues and our treatment plan with her in detail * I reviewed with her the management of CHF * Continue current cardiac regimen * OK to discharge home from cardiac stand point with close out pt f/u HENRY SMITH MD FACP [facility] Mar 17, 2019 09:21 POS
--- NOTE | 2019-03-17 10:54 | Pulmonary Progress Note ---
Subjective Time Seen by a Provider: 10:54 Subjective/Events-last exam No complications noted. Sepsis Event Evaluation Height, Weight, BMI Height: '.00" Weight: 243lbs. 0.2oz. 97.990867ox; 41.00 BMI Method:Stated Exam Exam Vital Signs Date Time Temp Pulse Resp B/P (MAP) Pulse Ox O2 Delivery O2 Flow Rate FiO2 03/17/19 10:42 95 Nasal Cannula 3.00 03/17/19 09:00 Nasal Cannula 2.00 03/17/19 08:00 Nasal Cannula 2.00 03/17/19 08:00 36.2 103 20 120/79 (93) 97 Nasal Cannula 2.00 03/17/19 07:51 96 Nasal Cannula 3.00 03/17/19 06:53 96 03/17/19 04:00 36.1 106 18 129/82 (98) 97 Nasal Cannula 2.00 03/17/19 04:00 NIV CPAP 2.00 03/17/19 02:08 93 NIV CPAP 2.00 03/17/19 01:00 102 03/17/19 00:00 NIV CPAP 2.00 03/17/19 00:00 36.2 110 17 96/65 (75) 98 NIV CPAP 2.00 03/16/19 22:43 97 NIV CPAP 2.00 03/16/19 21:00 Nasal Cannula 2.00 03/16/19 20:00 36.4 111 20 113/78 (90) 96 Nasal Cannula 2.00 03/16/19 20:00 Nasal Cannula 2.00 03/16/19 19:00 111 03/16/19 18:54 93 Nasal Cannula 2.00 03/16/19 16:00 36.3 105 18 118/64 (82) 97 Nasal Cannula 2.00 03/16/19 15:33 Nasal Cannula 2.00 03/16/19 15:08 92 Nasal Cannula 2.00 03/16/19 13:00 117 03/16/19 12:00 Nasal Cannula 2.00 03/16/19 12:00 36.5 105 18 110/65 (80) 97 Nasal Cannula 2.00 03/16/19 11:08 84 Room Air I & O 03/17/19 07:00 Intake Total 2325 ml Output Total 1100 ml Balance 1225 ml Height & Weight Height: 5'5.00" Weight: 243lbs. 0.2oz. 97.231523te; 41.00 BMI Method:Stated General Appearance: No Apparent Distress, WD/WN HEENT: PERRL/EOMI, Pharynx Normal Neck: Normal Inspection Respiratory: Lungs Clear, No Respiratory Distress Cardiovascular: Regular Rate, Rhythm, No Murmur Capillary Refill: Less Than 3 Seconds Peripheral Pulses: 2+ Dorsalis Pedis (R), 2+ Left Dors-Pedis (L), 2+ Radial Pulses (R), 2+ Radial Pulses (L) Gastrointestinal: normal bowel sounds, non tender, soft Extremity: Normal Inspection, Non Tender, No Pedal Edema Neurologic/Psychiatric: Alert, Oriented x3 Skin: Normal Color, Warm/Dry Lymphatic: No Adenopathy Results Lab Laboratory Tests 03/16/19 03:20 03/17/19 03:25 Assessment/Plan Assessment/Plan Acute on chronic respiratory failure with hypoxia - failed out treatment -S/p bronchoscopy -Prednisone taper Acute on chronic diastolic heart failure -May 2017 echo LVEF 55-60% NSTEMI -Appreciate cardiology recs -Troponin elevation: type II MO due to CHF CKD -[employer]. 1,57, near baseline COPD Paroxysmal Atrial fibrillation Continue metoprolol and Eliquis DVT prophylaxis: already receiving therapeutic anticoagulation Pt is ok from pulmonary standpoint for discharge. PHILLIP MADRIGAL DO Mar 17, 2019 10:54 POS
== END 2019-03-17 09:04 | disposition home or self-care (01) ==
LOC: EDUNIT# 09:33 → ER 09:34 → UNDOADMOB 10:53 → INTOOBSV 10:53 → ICU 10:53 → CSD 03-15 10:27 → ICU 03-15 10:27 → CSD 03-15 10:27 → UNDODISOB 03-17 11:30
PROVIDERS: ADMIT Internal Medicine; ATTEND Internal Medicine
DX: I50.9 Heart failure, unspecified (principal); J44.9 Chronic obstructive pulmonary disease, unspecified; J96.01 Acute respiratory failure with hypoxia; I42.8 Other cardiomyopathies; N18.4 Chronic kidney disease, stage 4 (severe); I48.91 Unspecified atrial fibrillation; M25.473 Effusion, unspecified ankle; I48.0 Paroxysmal atrial fibrillation; I44.7 Left bundle-branch block, unspecified; I21.4 Non-ST elevation (NSTEMI) myocardial infarction; E66.2 Morbid (severe) obesity with alveolar hypoventilation; Z90.89 Acquired absence of other organs; Z90.710 Acquired absence of both cervix and uterus; Z95.810 Presence of automatic (implantable) cardiac defibrillator; Z79.899 Other long term (current) drug therapy; Z79.01 Long term (current) use of anticoagulants; Z68.41 Body mass index [BMI] 40.0-44.9, adult
CPT/HCPCS: 36415; 71045; 71250; 80048; 80053; 81000; 82164; 83605; 83735; 83880; 84100; 84145; 84484; 85007; 85025; 85027; 85379; 87015; 87040; 87070; 87101; 87116; 87205; 87206; 93005; 94640; 94760

== ENCOUNTER 2019-03-28 21:24 | Inpatient (IN) | payer OTHER, MEDICARE ==
[~2019-03-28] VITALS: Ht 165.1 cm; Wt 109.9 kg
[~2019-03-28 21:24] MED LIST changes: +ALLO100T PO; +CALC0.253 PO; +CHOL20002 PO; +CLOT15CR6 TOP; +EPIN11.7 IH; +FOLI-74 PO; +GUAI600T43 PO; +PRD20T PO; +TIOT4MIS2 INH
[2019-03-28] MEDS ORDERED: RT-ALBUTEROL SULF 2.5 MG/3 ML PRE-MIX VIAL INH STA ×2 (21:31→22:11)
[2019-03-28 21:44] LABS: BASOPHILS % (AUTO) 0 % (0-10); EOSINOPHILS # (AUTO) 0.1 10^3/uL (0.0-0.3); EOSINOPHILS % (AUTO) 1 % (0-10); HEMATOCRIT 32 % (35-52); HEMOGLOBIN 9.9 G/DL (11.5-16.0); LYMPHOCYTES # (AUTO) 0.8 X 10^3 (1.0-4.0); LYMPHOCYTES % (AUTO) 10 % (12-44); MEAN CORPUSCULAR HEMOGLOBIN 29 PG (25-34); MEAN CORPUSCULAR HGB CONC 31 G/DL (32-36); MEAN CORPUSCULAR VOLUME 93 FL (80-99); MEAN PLATELET VOLUME 11.3 FL (7.4-10.4); MONOCYTES # (AUTO) 0.8 X 10^3 (0.0-1.0); MONOCYTES % (AUTO) 9 % (0-12); NEUTROPHILS # (AUTO) 6.7 X 10^3 (1.8-7.8); NEUTROPHILS % (AUTO) 80 % (42-75); PLATELET COUNT 174 10^3/uL (130-400); RED CELL DISTRIBUTION WIDTH 14.9 % (10.0-14.5); WHITE BLOOD COUNT 8.4 10^3/uL (4.3-11.0)
[2019-03-28 21:56] LABS: ALBUMIN 3.9 GM/DL (3.2-4.5); BILIRUBIN,TOTAL 0.9 MG/DL (0.1-1.0); CALCIUM 9.2 MG/DL (8.5-10.1); CREATININE SERUM 1.43 MG/DL (0.60-1.30); POTASSIUM 3.9 MMOL/L (3.6-5.0); TOTAL PROTEIN 7.2 GM/DL (6.4-8.2)
--- NOTE | 2019-03-28 22:13 | Diagnostic Imaging Report ---
INDICATION: Shortness of breath. EXAMINATION: Portable erect AP chest at 9:52 p.m. FINDINGS: The cardiomegaly and the left-sided defibrillator device seen on the prior exam of 03/17/2019 are again evident and no different. However, the density in the right lung base is somewhat greater than noted on the prior exam. The right upper lung and left upper lung are generally clear. The left retrocardiac region is not well penetrated. The mediastinum is not widened. The osseous structures are intact. IMPRESSION: The appearance of the chest has worsened somewhat since the prior study as there does appear to be slightly greater involvement of the right lower lobe by pneumonia/atelectasis. A followup exam would be recommended for continued evaluation. Dictated by: Dictated on workstation # [id number]
[2019-03-28] MEDS ORDERED: RT-IPRATROPIUM (ATROVENT) 0.5MG/2.5ML AMP IH ONE (22:15)
[2019-03-28] MEDS ORDERED: methylPREDNISolone 125 MG (Solu-MEDROL) VIAL IV STA (22:21)
[2019-03-28] MEDS ORDERED: CEFEPIME INJECTION 2,000 MG in WATER (STERILE) FOR INJECTION 20 ML IV ONE (22:30)
--- NOTE | 2019-03-28 22:32 | ED Respiratory ---
General Chief Complaint: Respiratory Problems Stated Complaint: SOB Nursing Triage Note: Patient presented to the ER via EMS secondary to c/o shortness of breath. EMS advise that the patient was ambulating to the bathroom at approximately 2000 when she began experiencing shortness of breath that became progressively worse. Source: patient Exam Limitations: no limitations History of Present Illness Date Seen by Provider: Mar 28, 2019 Time Seen by Provider: 21:25 Initial Comments Here by EMS with report of increasing shortness of breath over the last couple of days but certainly worse tonight. Also complains of increased tightness in the right side. She was hospitalized a few weeks ago for COPD exacerbation and discharged after 3 days today. She is not currently on steroids. She has metered-dose inhaler at home but does not have breathing machine. She follows with Dr. Vail and Dr. Wilson and her primary care is Dr. Castellano. Timing/Duration: yesterday, getting worse Severity: moderate Prior Episodes/Possible Cause: occasional episodes Modifying Factors: Worse With Activity; Improves With Albuterol Inhaler, Improves With Albuterol Nebulizer, Improves With Oxygen, Improves With Rest Associated Symptoms: chest pain/soreness, cough; No fever/chills, No nasal congestion, No nasal drainage; shortness of breath, wheezing Allergies and Home Medications Allergies Coded Allergies: No Known Drug Allergies (Unverified , 11/03/11) Home Medications Acetaminophen 325 Mg Tablet, 650 MG PO Q6H PRN for PAIN-MILD, (Reported) Albuterol Sulfate 18 Gm Hfa.aer.ad, 2 PUFF INH QID PRN for SHORTNESS OF BREATH, (Reported) Allopurinol 100 Mg Tablet, 100 MG PO DAILY, (Reported) Apixaban 5 Mg Tablet, 5 MG PO BID, (Reported) Calcitriol 0.25 Mcg Capsule, 0.25 MCG PO MoWeFr, (Reported) Cetirizine HCl 10 Mg Tablet, 10 MG PO HS PRN for ALLERGIES, (Reported) Cholecalciferol (Vitamin D3) 2,000 Unit Capsule, 2,000 UNIT PO DAILY, (Reported) Clotrimazole/Betamethasone Dip 15 Gm Cream..g., TOP BID, (Reported) Epinephrine 11.7 Gm Hfa.aer.ad, 2 PUFF IH QID PRN for SHORTNESS OF BREATH, (Reported) USES WHEN SHE DOES NOT HAVE VENTOLIN Fluticasone Propionate 16 Gm [place].susp, 1 SPRAY NS HS, (Reported) Fluticasone/Salmeterol 1 Each Blst.w.dev, 1 PUFF IH BID, (Reported) Folic Acid/Mv,Fe,Other Min 1 Each Tablet, 1 TAB PO DAILY, (Reported) Furosemide 40 Mg Tablet, 40 MG PO BID Prescribed by: VIRGIL CORNEJO on 03/16/19 1056 Guaifenesin 600 Mg Tab.er.12h, 600 MG PO BID PRN for CONGESTION, (Reported) Metoprolol Tartrate 50 Mg Tablet, 50 MG PO BID, (Reported) Potassium Chloride 10 Meq Tablet.er, 10 MEQ PO DAILY, (Reported) Prednisone 20 Mg Tab, 40 MG PO DAILY@0700 Prescribed by: XIN MASTERSON on 03/17/19 0904 Tiotropium [place] 4 Gm Mist.inhal, 2 PUFF INH DAILY, (Reported) Patient Home Medication List Home Medication List Reviewed: Yes Review of Systems Review of Systems Constitutional: see HPI; No chills, No fever EENTM: no symptoms reported Respiratory: see HPI Cardiovascular: see HPI; No palpitations, No syncope Gastrointestinal: No nausea, No vomiting Genitourinary: No dysuria, No pain Musculoskeletal: no symptoms reported Skin: no symptoms reported All Other Systems Reviewed Negative Unless Noted: Yes Past Ntdxmnc-Bmggad-Ucotmv Hx Past Med/Social Hx: Reviewed Nursing Past Med/Soc Hx Patient Social History Alcohol Use: Denies Use Recreational Drug Use: No Smoking Status: Never a Smoker 2nd Hand Smoke Exposure: No Recent Foreign Travel: No Contact w/Someone Who Travel: No Recent Infectious Disease Expo: No Recent Hopitalizations: No Immunizations Up To Date Date of Influenza Vaccine: Feb 06, 2012 Seasonal Allergies Seasonal Allergies: Yes Past Medical History Surgeries: Yes (Appy and hysterectomy ') Appendectomy, Defibrillator, Hysterectomy Respiratory: Yes Sleep Apnea, COPD Currently Using CPAP: Yes (WITH O2) Currently Using BIPAP: No Cardiac: Yes (CHF WITH RECENT MULTIPLE SHOCKS FROM DEFIB) Atrial Fibrillation Neurological: No Reproductive Disorders: Yes Sexually Transmitted Disease: No HIV/AIDS: No Genitourinary: No Renal Failure Gastrointestinal: No Musculoskeletal: No Endocrine: No HEENT: No Loss of Vision: Denies Cancer: No Psychosocial: No Integumentary: No Blood Disorders: No Adverse Reaction/Blood Tranf: No Family Medical History Reviewed Nursing Family Hx Patient reports no known family medical history. No Pertinent Family Hx Physical Exam Vital Signs - First Documented 03/28/19 03/28/19 21:27 21:45 Pulse 86 Resp 18 B/P (MAP) 127/65 (85) Pulse Ox 98 O2 Delivery Room Air O2 Flow Rate 1.50 Capillary Refill : Less Than 3 Seconds Height: 5'5.00" Weight: 243lbs. 0.2oz. 97.598872pe; 44.00 BMI Method:Stated General Appearance: WD/WN, no apparent distress HEENT: PERRL/EOMI, pharynx normal Neck: full range of motion, supple Respiratory: decreased breath sounds, accessory muscle use, wheezing, expiration Cardiovascular: regular rate, rhythm, no murmur Gastrointestinal: non tender, soft Extremities: non-tender, normal inspection Neurologic/Psychiatric: alert, oriented x 3 Skin: normal color, warm/dry Progress/Results/Core Measures Suspected Sepsis Recent Fever Within 48 Hours: No Infection Criteria Present: Suspected New Infection New/Unexplained Altered Menta: No Sepsis Screen: No Definite Risk SIRS Temperature: Pulse: 86 Respiratory Rate: 18 Laboratory Tests 03/28/19 21:28: White Blood Count 8.4 Blood Pressure 127 /65 Mean: 85 Laboratory Tests 03/28/19 21:28: Creatinine 1.43H, Platelet Count 174, Total Bilirubin 0.9 Results/Orders Lab Results Laboratory Tests Test 03/28/19 21:28 Range/Units White Blood Count 8.4 4.3-11.0 10^3/uL Red Blood Count 3.43 L 4.35-5.85 10^6/uL Hemoglobin 9.9 L 11.5-16.0 G/DL Hematocrit 32 L 35-52 % Mean Corpuscular Volume 93 80-99 FL Mean Corpuscular Hemoglobin 29 25-34 PG Mean Corpuscular Hemoglobin Concent 31 L 32-36 G/DL Red Cell Distribution Width 14.9 H 10.0-14.5 % Platelet Count 174 130-400 10^3/uL Mean Platelet Volume 11.3 H 7.4-10.4 FL Neutrophils (%) (Auto) 80 H 42-75 % Lymphocytes (%) (Auto) 10 L 12-44 % Monocytes (%) (Auto) 9 0-12 % Eosinophils (%) (Auto) 1 0-10 % Basophils (%) (Auto) 0 0-10 % Neutrophils # (Auto) 6.7 1.8-7.8 X 10^3 Lymphocytes # (Auto) 0.8 L 1.0-4.0 X 10^3 Monocytes # (Auto) 0.8 0.0-1.0 X 10^3 Eosinophils # (Auto) 0.1 0.0-0.3 10^3/uL Basophils # (Auto) 0.0 0.0-0.1 10^3/uL Sodium Level 138 135-145 MMOL/L Potassium Level 3.9 3.6-5.0 MMOL/L Chloride Level 101 98-107 MMOL/L Carbon Dioxide Level 25 21-32 MMOL/L Anion Gap 12 5-14 MMOL/L Blood Urea Nitrogen 21 H 7-18 MG/DL Creatinine 1.43 H 0.60-1.30 MG/DL Estimat Glomerular Filtration Rate 44 BUN/Creatinine Ratio 15 Glucose Level 102 70-105 MG/DL Calcium Level 9.2 8.5-10.1 MG/DL Corrected Calcium 9.3 8.5-10.1 MG/DL Total Bilirubin 0.9 0.1-1.0 MG/DL Aspartate Amino Transf (AST/SGOT) 20 5-34 U/L Alanine Aminotransferase (ALT/SGPT) 25 0-55 U/L Alkaline Phosphatase 59 40-136 U/L C-Reactive Protein High Sensitivity 4.10 H 0.00-0.50 MG/DL Total Protein 7.2 6.4-8.2 GM/DL Albumin 3.9 3.2-4.5 GM/DL My Orders Orders - ANÍBAL CARDOZA MD Albuterol Pre-Mix Nebs (Rt) (Proventil (03/28/19 21:31) Chest 1 View, Ap/Pa Only (03/28/19 21:31) Cbc With Automated Diff (03/28/19 21:31) Comprehensive Metabolic Panel (03/28/19 21:31) Hs C Reactive Protein (03/28/19 21:31) Svn Small Volume Nebulizer (03/28/19 21:31) Lactic Acid Analyzer (03/28/19 22:11) Blood Culture (03/28/19 22:11) Albuterol Pre-Mix Nebs (Rt) (Proventil (03/28/19 22:11) Ipratropium 0.02% Neb Solution (Atrovent (03/28/19 22:15) Svn Small Volume Nebulizer (03/28/19 22:11) Svn Small Volume Nebulizer (03/28/19 22:11) Methylprednisolone Sod Succ (Solu-Medrol (03/28/19 22:21) Cefepime Injection (Maxipime Injection) (03/28/19 22:30) Medications Given in ED Current Medications Medications Dose Ordered Sig/Jennifer Route Start Time Stop Time Status Last Admin Dose Admin Ipratropium [place] 0.5 mg ONCE ONCE IH 03/28/19 22:15 03/28/19 22:16 DC 03/28/19 22:21 0.5 MG Vital Signs/I&O 03/28/19 03/28/19 03/28/19 21:27 21:45 22:22 Pulse 86 Resp 18 B/P (MAP) 127/65 (85) Pulse Ox 98 92 94 O2 Delivery Room Air Nasal Cannula Nasal Cannula O2 Flow Rate 1.50 2.00 Capillary Refill : Less Than 3 Seconds Blood Pressure Mean: 85 POS Progress Note : Progress Note Seen and evaluated on arrival by EMS. IV by EMS. EMS did give DuoNeb treatment in route which helped a little bit but patient is still wheezing significantly with some accessory muscle use. Albuterol treatment 3 via nebulizer ordered. We will go ahead and get labs, chest x-ray and EKG is she reportedly has paced r hythm by EMS. Monitor patient. 2220: Patient has findings of right lower lobe pneumonia. Blood cultures and lactic acid added. I discussed the case with Dr. Serrano. She is still wheezing significantly. Continuous one-hour treatment ordered as well as Solu-Medrol 125 mg IV. Due to the pneumonia as well as recent hospital stay of 3 days or more, we will initiate cefepime 2 g IV now and continue inpatient pneumonia protocol. Patient does have findings of sepsis but no findings of severe sepsis or septic shock and does not require high-volume fluid resuscitation. We will continue inpatient Solu-Medrol 60 mg IV every [address] Rose in the morning. She was due to have follow-up and procedure with Dr. Wilson for heart-related condition of some sort so we will consult them in the hospital to evaluate. All findings and concerns were discussed with the patient and family who agree with plan. Dr. Serrano agrees to admission, inpatient status. ECG Initial ECG Impression Date: Mar 28, 2019 Initial ECG Impression Time: 21:25 Initial ECG Rate: 81 Comment Atrial paced rhythm with PVC, left axis deviation and left bundle branch block noted. Similar to 03/14/19. No evidence of ST elevation ND. Interpreted by me. Diagnostic Imaging Diagonstic Imaging: Xray Plain Films/CT/US/NM/MRI: chest Comments Right lower lobe pneumonia and chronic lung disease. Reviewed: Reviewed by Me Departure Communication (Admissions) Time/Spoke to Admitting Phy: 22:20 Impression Primary Impression: Right lower lobe pneumonia Qualified Codes: J18.1 - Lobar pneumonia, unspecified organism Additional Impression: COPD with acute exacerbation Disposition: ADMITTED INPATIENT Condition: Stable Admissions Decision to Admit Reason: Admit from ER (General) Decision to Admit/Date: Mar 28, 2019 Time/Decision to Admit Time: 22:20 Departure-Patient Inst. Referrals: NO,LOCAL PHYSICIAN (PCP/Family) Primary Care Physician ANÍBAL CARDOZA MD Mar 28, 2019 22:32 POS
--- NOTE | 2019-03-28 23:45 | NUR ---
MARQUIS SHEEHAN admitted to room 408-1, with an admitting diagnosis of RLL pneumonia, acute copd exacerbation, on 03/28/19 from ED via stretcher, accompanied by staff.MARQUIS SHEEHAN introduced to surroundings, call light, bed controls, phone, TV, temperature control, lights, meal times, smoking policy, visitor policy, side rail policy, bathrooms and showers. Patient Rights given to patient in the handbook. MARQUIS SHEEHAN verbalizes understanding that [facility] is not responsible for the loss or damage to any personal effects or valuables that are kept in the patients posession during their hospitalization.
[2019-03-29] VITALS (10 sets, daily range): BP systolic 111–144; BP diastolic 50–90
[2019-03-29] MEDS ORDERED: RT-ALBUTEROL/IPRATROPIUM 3 ML (DUONEB) VIAL INH PRN (00:15)
[2019-03-29] MEDS: RT-ALBUTEROL/IPRATROPIUM 3 ML (DUONEB) VIAL INH SCH ×6 (03:00→21:10)
[2019-03-29] MEDS: methylPREDNISolone 40 MG/ML (Solu-MEDROL) VIAL IV SCH ×4 (04:11→22:26)
[2019-03-29] MEDS: APIXABAN 5 MG (ELIQUIS) TABLET PO SCH ×2 (08:13→20:43)
--- NOTE | 2019-03-29 08:39 | Pulmonary Consultation ---
History of Present Illness History of Present Illness Date of Consultation 03/29/19 08:35 Time Seen by Provider: 08:36 Date of Admission History of Present Illness 68 year old female with PMHx of COPD, HTN, Aflutter, CHF, non-ischemic cardiomyopathy p/w worsening SOB over the last couple days. Pt was discharged on 03/17 and states she felt good at that time. Pt states that over the last 3 days she just started becoming more short of breath. Pt states that she has also had a non-productive cough and states that when she would get up and walk that her O2 sat would drop down into the mid 80's with her normal 2L home O2. Pt states that over the weekend she also had some decreased appetitie and decreased activity. Pt denies any nausea, vomiting, diarrhea, ORTIZ, CP. Allergies and Home Medications Allergies Coded Allergies: No Known Drug Allergies (Unverified , 11/03/11) Home Medications Acetaminophen 325 Mg Tablet, 650 MG PO Q6H PRN for PAIN-MILD, (Reported) Albuterol Sulfate 18 Gm Hfa.aer.ad, 2 PUFF INH QID PRN for SHORTNESS OF BREATH, (Reported) Allopurinol 100 Mg Tablet, 100 MG PO DAILY, (Reported) Apixaban 5 Mg Tablet, 5 MG PO BID, (Reported) Calcitriol 0.25 Mcg Capsule, 0.25 MCG PO MoWeFr, (Reported) Cetirizine HCl 10 Mg Tablet, 10 MG PO HS PRN for ALLERGIES, (Reported) Cholecalciferol (Vitamin D3) 2,000 Unit Capsule, 2,000 UNIT PO DAILY, (Reported) Clotrimazole/Betamethasone Dip 15 Gm Cream..g., TOP BID, (Reported) Epinephrine 11.7 Gm Hfa.aer.ad, 2 PUFF IH QID PRN for SHORTNESS OF BREATH, (Reported) USES WHEN SHE DOES NOT HAVE VENTOLIN Fluticasone Propionate 16 Gm [place].susp, 1 SPRAY NS HS, (Reported) Fluticasone/Salmeterol 1 Each Blst.w.dev, 1 PUFF IH BID, (Reported) Folic Acid/Mv,Fe,Other Min 1 Each Tablet, 1 TAB PO DAILY, (Reported) Furosemide 40 Mg Tablet, 40 MG PO BID Prescribed by: VIRGIL CORNEJO on 03/16/19 1056 Guaifenesin 600 Mg Tab.er.12h, 600 MG PO BID PRN for CONGESTION, (Reported) Metoprolol Tartrate 50 Mg Tablet, 50 MG PO BID, (Reported) Potassium Chloride 10 Meq Tablet.er, 10 MEQ PO DAILY, (Reported) Prednisone 20 Mg Tab, 40 MG PO DAILY@0700 Prescribed by: XIN MASTERSON on 03/17/19 0904 Tiotropium [place] 4 Gm Mist.inhal, 2 PUFF INH DAILY, (Reported) Past Hrjokif-Gcevsl-Yjfwlz Hx Past Med/Social Hx: Reviewed Nursing Past Med/Soc Hx Patient Social History Alcohol Use: Denies Use Recreational Drug Use: No Smoking Status: Never a Smoker 2nd Hand Smoke Exposure: No Recent Foreign Travel: No Contact w/Someone Who Travel: No Recent Infectious Disease Expo: No Recent Hopitalizations: No Immunizations Up To Date Date of Influenza Vaccine: Feb 06, 2012 Seasonal Allergies Seasonal Allergies: Yes Past Medical History Surgeries: Yes (Appy and hysterectomy ') Appendectomy, Defibrillator, Hysterectomy Respiratory: Yes Sleep Apnea, COPD Currently Using CPAP: Yes (WITH O2) Currently Using BIPAP: No Cardiac: Yes (CHF WITH RECENT MULTIPLE SHOCKS FROM DEFIB) Atrial Fibrillation Neurological: No Reproductive Disorders: Yes Sexually Transmitted Disease: No HIV/AIDS: No Genitourinary: No Renal Failure Gastrointestinal: No Musculoskeletal: No Endocrine: No HEENT: No Loss of Vision: Denies Cancer: No Psychosocial: No Integumentary: No Blood Disorders: No Adverse Reaction/Blood Tranf: No Family Medical History Reviewed Nursing Family Hx Patient reports no known family medical history. No Pertinent Family Hx Review of Systems Constitutional: No: Fever, Chills Eyes: No: Pain ENT: No: Ear pain Respiratory: Cough, Shortness of breath, SOB with excertion Cardiovascular: No: Chest Pain Gastrointestinal: No: Nausea, Vomiting, Abdominal Pain Genitourinary: No Frequency Musculoskeletal: No: neck pain Skin: No: Rash Neurological: No: Confusion Sepsis Event Evaluation Height, Weight, BMI Height: 5'5.00" Weight: 243lbs. 0.2oz. 97.301303li; 40.31 BMI Method:Stated Exam Exam Vital Signs Date Time Temp Pulse Resp B/P (MAP) Pulse Ox O2 Delivery O2 Flow Rate FiO2 03/29/19 06:40 95 Nasal Cannula 2.00 03/29/19 04:00 36.6 81 22 144/68 (93) 94 Nasal Cannula 2.00 03/29/19 03:00 94 Nasal Cannula 2.00 03/29/19 00:57 37.2 96 22 142/90 95 Nasal Cannula 2.00 03/29/19 00:09 36.8 80 92 03/28/19 23:53 Nasal Cannula 2.00 03/28/19 23:35 36.8 55 22 109/77 94 Nasal Cannula 2.00 03/28/19 23:31 36.8 55 22 109/77 94 Nasal Cannula 03/28/19 22:22 94 Nasal Cannula 2.00 03/28/19 21:45 92 Nasal Cannula 1.50 03/28/19 21:27 86 18 127/65 (85) 98 Room Air I & O 03/29/19 07:00 Intake Total 250 ml Output Total 0 ml Balance 250 ml Height & Weight Height: 5'5.00" Weight: 243lbs. 0.2oz. 97.038435ws; 40.31 BMI Method:Stated General Appearance: No Apparent Distress, WD/WN HEENT: PERRL/EOMI Neck: Full Range of Motion; No JVD Respiratory: Chest Non Tender, Wheezing (expiratory) Cardiovascular: Regular Rate, Rhythm Capillary Refill: Less Than 3 Seconds Gastrointestinal: normal bowel sounds, non tender, soft Extremity: Normal Inspection, Normal Range of Motion Neurologic/Psychiatric: Alert, Oriented x3, No Motor/Sensory Deficits, Normal Mood/Affect Skin: Normal Color, Warm/Dry Lymphatic: No Adenopathy Results Lab Laboratory Tests 03/28/19 21:28 Assessment/Plan Assessment/Plan Acute respiratory failure with failed outpatient therapy -CXR shows worsened greater involvement of RLL by PNA/atelectasis -duoneb -steroids -cefepime AECOPD -duoneb -prednisone 40mg daily Acute on chronic diastolic heart failure -May 2017 echo LVEF 55-60% -lasix CKD -creat 1.43 - around baseline for pt Paroximal Afib -continue metoperlol -continue Eliquis Hx of HTN DVT prophylaxis MORGAN BONILLA [employer] STUDENT Mar 29, 2019 08:39 POS
--- NOTE | 2019-03-29 08:43 | Consultation-Cardiology ---
HPI-Cardiology Cardiology Consultation: Date of Consultation 03/29/19 Time Seen by a Provider: 08:20 Date of Admission 03-28-19 Attending Physician Jyothi Serrano MD Admitting Physician No,Local Physician Consulting Physician Suzette Wilson MD HPI: Chief Complaint: Progressive FERMIN Ms. Hurley is a 68 year old female admitted to [facility] from the ED from home. She reports over the last 2-3 days she has had progressively increased dyspnea. She reports heaviness in her chest. She reports frequent, non-productive cough. She states she generally has been feeling unwell. She reports yesterday she got up, took her oxygen off so she could get ready for orthodoxy. She reports that after just a few steps she felt as though she could not catch her breath. She put her oxygen back on, which did not seem to help. She reports a feeling of "wheezing" in her chest. She reports increasing fatigue. No c/o CP, palpitations, syncope, near syncope or LE swelling. She states she has been compliant with her medications. She reports her breathing is somewhat better than at the time of admission. Review of Systems-Cardiology Review of Systems Constitutional: No chills, No fever; malaise Eyes: No vision change Ears/Nose/Throat: No epistaxis, No recent hearing loss Respiratory: As described under HPI Cardiovascular: As described under HPI Gastrointestinal: No constipation, No diarrhea, No nausea, No vomiting Genitourinary: No dysuria, No hematuria Musculoskeletal: no symptoms reported Skin: No rash on exposed areas, No ulcerations on exposed areas Psychiatric/Neurological: No anxiety, No depression, No seizure, No focal weakness, No syncope Hematologic: No bleeding abnormalities All Other Systems Reviewed Negative Unless Noted: Yes MDB-[id number]-Fonjwb Hx Patient Social History Alcohol Use: Denies Use Recreational Drug Use: No Smoking Status: Never a Smoker 2nd Hand Smoke Exposure: No Recent Foreign Travel: No Recent Infectious Disease Expo: No Immunizations Up To Date Date of Influenza Vaccine: Feb 06, 2012 Past Medical History PMH As described under Assessment. Family Medical History Family History: Patient reports no known family medical history. Allergies and Home Medications Allergies Coded Allergies: No Known Drug Allergies (Unverified , 11/03/11) Home Medications Acetaminophen 325 Mg Tablet, 650 MG PO Q6H PRN for PAIN-MILD, (Reported) Albuterol Sulfate 18 Gm Hfa.aer.ad, 2 PUFF INH QID PRN for SHORTNESS OF BREATH, (Reported) Allopurinol 100 Mg Tablet, 100 MG PO DAILY, (Reported) Apixaban 5 Mg Tablet, 5 MG PO BID, (Reported) Calcitriol 0.25 Mcg Capsule, 0.25 MCG PO MoWeFr, (Reported) Cetirizine HCl 10 Mg Tablet, 10 MG PO HS PRN for ALLERGIES, (Reported) Cholecalciferol (Vitamin D3) 2,000 Unit Capsule, 2,000 UNIT PO DAILY, (Reported) Clotrimazole/Betamethasone Dip 15 Gm Cream..g., TOP BID, (Reported) Fluticasone Propionate 16 Gm [place].susp, 1 SPRAY NS HS, (Reported) Fluticasone/Salmeterol 1 Each Blst.w.dev, 1 EACH IH BID, (Reported) Folic Acid/Mv,Fe,Other Min 1 Each Tablet, 1 TAB PO DAILY, (Reported) Furosemide 40 Mg Tablet, 40 MG PO BID, (Reported) Guaifenesin 600 Mg Tab.er.12h, 600 MG PO BID PRN for CONGESTION, (Reported) Metoprolol Tartrate 50 Mg Tablet, 50 MG PO BID, (Reported) Potassium Chloride 10 Meq Tablet.er, 10 MEQ PO DAILY, (Reported) Tiotropium [place] 4 Gm Mist.inhal, 2 PUFF INH DAILY, (Reported) Physical Exam-Cardiology Physical Exam Vital Signs/I&O 03/29/19 03/29/19 03/30/19 03/30/19 22:00 23:44 01:56 03:55 Temp 36.4 36.4 Pulse 80 97 Resp 18 18 B/P (MAP) 118/50 (72) 131/60 (83) 131/68 (89) Pulse Ox 92 91 94 O2 Delivery High Flow N/C Nasal Cannula High Flow N/C O2 Flow Rate 2.00 2.00 2.00 03/30/19 03/30/19 03/30/19 03/30/19 06:34 06:36 06:36 08:00 Temp 36.2 Pulse 91 Resp 18 B/P (MAP) 126/61 (82) Pulse Ox 87 92 92 95 O2 Delivery Room Air Nasal Cannula Nasal Cannula Nasal Cannula O2 Flow Rate 2.00 2.00 2.00 03/30/19 00:00 Intake Total 1640 ml Output Total 650 ml Balance 990 ml Capillary Refill : Less Than 3 Seconds Constitutional: AAO x 3, well-developed, well-nourished HEENT: PERRL, oral hygience is good Neck: No carotid bruit; carotid pulses are 2 + bilaterally Respiratory: No accessory muscle use, No respiratory distress; chest expansion is symmetric, chest is bilaterally symmetric, rhonchi (scattered), other (fair air entry; diminished lower lobes) Cardiovascular: regular rate-rhythm; No JVD; S1 and S2 Gastrointestinal: No tender; soft, round, audible bowel sounds Rectal: deferred Extremities: no lower extremity edema bilateral Neurologic/Psychiatric: grossly intact Skin: No rash on exposed areas, No ulcerations on exposed areas Data Review Labs Laboratory Tests 03/29/19 10:02: Erythrocyte Sedimentation Rate 62H, C-Reactive Protein High Sensitivity 4.59H, Rheumatoid Factor <15, Rheumatoid Factor Interpretation Negative 03/30/19 05:29: Sodium Level 139, Potassium Level 3.8, Chloride Level 100, Carbon Dioxide Level 24, Anion Gap 15H, Blood Urea Nitrogen 34H, Creatinine 1.53H, Estimat Glomerular Filtration Rate 41, BUN/Creatinine Ratio 22, Glucose Level 150H, Calcium Level 9.6, Magnesium Level 2.3 Microbiology 03/28/19 Blood Culture - Preliminary, Resulted No growth Radiology NAME: MARQUIS HURLEY [facility] REC#: [id number] PT STATUS: REG ER : 1950 PHYSICIAN: ANÍBAL CARDOZA MD ADMIT DATE: 03/28/19/ER Signed Date of Exam:03/28/19 CHEST 1 VIEW, AP/PA ONLY INDICATION: Shortness of breath. EXAMINATION: Portable erect AP chest at 9:52 p.m. FINDINGS: The cardiomegaly and the left-sided defibrillator device seen on the prior exam of 03/17/2019 are again evident and no different. However, the density in the right lung base is somewhat greater than noted on the prior exam. The right upper lung and left upper lung are generally clear. The left retrocardiac region is not well penetrated. The mediastinum is not widened. The osseous structures are intact. IMPRESSION: The appearance of the chest has worsened somewhat since the prior study as there does appear to be slightly greater involvement of the right lower lobe by pneumonia/atelectasis. A followup exam would be recommended for continued evaluation. Dictated by: Dictated on workstation # [id number] Dict: 03/28/192199 Trans: 03/28/192231 [facility] [id number] Interpreted by: RITA PEACOCK MD Electronically signed by: RITA PEACOCK MD 03/28/192231 ECG Impression ECG Comment SR with LBB A/P-Cardiology Assessment/Admission Diagnosis Multifactorial shortness of breath (see below) Pneumonia -management per medical/pulmonary services services H/O nonischemic cardiomyopathy with an ejection fraction between 30 and 35% on serial echocardiograms previously. Most recent echocardiogram of Mar 24, 2019 shows LVEF 50-55%, LA mild to mod dilated; Mod-severe MR and TR. PASP 60mmHg Cardiac cath of October [address] Issa showed angiographically normal coronaries Chronic systolic and diastolic CHF due to nonischemic cardiomyopathy currently clinically compensated Intolerance to ORAL-inhib / ARB due to worsening renal function Suspected sarcoidosis, followed by Dr Rose. 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 Rose order administrator S/p dual chamber ICD, device at [facility] on interrogation of 09/21/18 with pulse generator change out on 09-22-18. Superficial dehiscence at the device insertion site, healed by secondary intention. Device functioning normally per interrogation of Feb 2019 Paroxysmal atrial flutter with an intermittent rapid ventricular response. In July 2012, she received one shock ICD for atrial flutter but has not has not received any since. She has not had any syncope or presyncope. Intolerance to digoxin (results in N/V and poor apetite) Chronic LBBB CKD-4, being followed by Dr Huff History of bronchial asthma, managed by Dr Rose Chronic anticoagulation with Eliquis therapy for stroke prophylaxis. MAXIM, treated with CPAP H/o pulm hypertension on echo studies of 2011,2012, 2013, echo studies of 2015 and 2017 had shown PASP approx 30-35 mmHg. Most recent echo of Mar 2019 showed PASP 60mmHg Mild carotid dz per u/s of Mar 2019 Discussion and Recomendations Complex management issue Multi-factorial dyspnea as noted above Treatment of pneumonia is with medical/pulmonary services Continue home BB and diuretics Monitor lab closely Further recs will be based on her hospital course We would like to thank medical services for this consult Clinical Quality Measures DVT/VTE Risk/Contraindication: Risk Factor Score Per Nursin RFS Level Per Nursing on Admit: 3=High VIRGIL CORNEJO Mar 29, 2019 08:43 POS
[2019-03-29] MEDS ORDERED: KCL 10 MEQ TAB (MICRO K) PO NR (09:00)
[2019-03-29] MEDS ORDERED: FUROSEMIDE 40 MG (LASIX) TAB PO NR (09:00)
[2019-03-29] MEDS ORDERED: CEFEPIME INJECTION 2,000 MG in WATER (STERILE) FOR INJECTION 20 ML IV SCH (09:00)
[2019-03-29] MEDS: meTOprolol TARTRATE 50 MG (LOPRESSOR) TAB PO SCH ×2 (09:33→22:20)
--- NOTE | 2019-03-29 09:35 | History & Physical-Hospitalist ---
History of Present Illness HPI/Chief Complaint Patient is a 68-year-old female known to me from previous admissions who presented to the ER due to shortness of breath. She was recently admitted for a COPD exacerbation and was treated with spheroids which she has since completed. Over the last week she has continued to have worsening shortness of breath and dyspnea on exertion. She has been compliant with her home inhalers and home oxygen. Despite this she has had progressive dyspnea prompting her to seek evaluation in the emergency department. This morning she states she is feeling better but still has some shortness of breath mostly with exertion. In the ER she was found to have a right lower lobe pneumonia and was admitted for IV steroids and antibiotics. Source: patient Date Seen 03/29/19 Time Seen by a Provider: 09:30 Attending Physician Jyothi Serrano MD PCP No,Local Physician Referring Physician Date of Admission Mar 28, 2019 at 22:25 Home Medications & Allergies Home Medications Reviewed patient Home Medication Reconciliation performed by pharmacy medication reconciliations it help desk technician and/or nursing. Patients Allergies have been reviewed. Allergies Allergies Coded Allergies No Known Drug Allergies (Unverified11/03/11) Past Rjaiunt-Jcrzrr-Cbbpsm Hx Past Med/Social Hx: Reviewed Nursing Past Med/Soc Hx Patient Social History Alcohol Use: Denies Use Recreational Drug Use: No Smoking Status: Never a Smoker 2nd Hand Smoke Exposure: No Recent Foreign Travel: No Contact w/other who traveled: No Recent Hopitalizations: No Recent Infectious Disease Expo: No Immunizations Up To Date Date of Influenza Vaccine: Feb 06, 2012 Seasonal Allergies Seasonal Allergies: Yes Past Medical History Surgeries: Appendectomy, Defibrillator, Hysterectomy Respiratory: COPD Currently Using CPAP: Yes (WITH O2) Currently Using BIPAP: No Cardiac: Atrial Fibrillation, Hypertension Reproductive: Yes Sexually Transmitted Disease: No HIV/AIDS: No Genitourinary: Renal Failure Loss of Vision: Denies History of Blood Disorders: No Adverse Reaction to Blood [place]: No Family History Reviewed Nursing Family Hx Patient reports no known family medical history. No Pertinent Family Hx Review of Systems Constitutional: No fever; malaise, weakness EENTM: no symptoms reported Respiratory: see HPI, cough, dyspnea on exertion, short of breath Cardiovascular: No chest pain, No edema, No palpitations Gastrointestinal: no symptoms reported Genitourinary: no symptoms reported Musculoskeletal: no symptoms reported Skin: no symptoms reported Psychiatric/Neurological: No Symptoms Reported Physical Exam Physical Exam Vital Signs Vital Signs - First Documented 03/28/19 03/28/19 03/28/19 03/29/19 21:27 21:45 23:31 11:12 Temp 36.8 Pulse 86 Resp 18 B/P (MAP) 127/65 (85) Pulse Ox 98 O2 Delivery Room Air O2 Flow Rate 1.50 FiO2 28 Capillary Refill : Less Than 3 Seconds Height, Weight, BMI Height: 5'5.00" Weight: 243lbs. 0.2oz. [id number]; 40.31 BMI Method:Stated General Appearance: No Apparent Distress, Chronically ill, Obese HEENT: Moist Mucous Membranes; No Scleral Icterus (L), No Scleral Icterus (R) Neck: Normal Inspection, Supple; No JVD Respiratory: No Accessory Muscle Use, No Respiratory Distress, Wheezing (expiratory) Cardiovascular: Regular Rate, Rhythm, No JVD, No Murmur Gastrointestinal: Normal Bowel Sounds, Non Tender, Soft Extremity: Normal Capillary Refill, No Calf Tenderness, No Pedal Edema Neurologic/Psychiatric: Alert, Oriented x3, Normal Mood/Affect Skin: Normal Color, Warm/Dry Results Results/Procedures Labs Laboratory Tests 03/28/19 21:28 Patient resulted labs reviewed. Imaging: Reviewed Imaging Report Assessment/Plan Admission Diagnosis COPD Exacerbation with lower respiratory tract infection Admission Status: Inpatient Order (span 2 midnights) Reason for Inpatient Admission: ON iv steroids, failed outpatient management with home inhalers, high risk for decompensation if DC home Assessment and Plan COPD with Lower Respiratory Tract Infection RLL Pneumonia Acute respiratory failure with hypoxia Pulmonology consulted, appreciate recs Discussed with Dr Rose- will expand workup of obstructive disease Continue Steroids Continue Cefepime ORAL-I level negative Will need home nebulizer at discharge HTN A-fib- paroxysmal Continue home meds Eliquis Cardiology consulted, appreciate recs Echo from last admission shows preserved EF Diagnosis/Problems Diagnosis/Problems (1) Right lower lobe pneumonia Status: Acute Qualifiers: Pneumonia type: due to unspecified organism Qualified Codes: J18.1 - Lobar pneumonia, unspecified organism (2) COPD with acute exacerbation Status: Acute (3) CKD (chronic kidney disease) Qualifiers: Chronic kidney disease stage: stage 3 (moderate) Qualified Codes: N18.3 - Chronic kidney disease, stage 3 (moderate) (4) Nonischemic cardiomyopathy Status: Chronic (5) Acute respiratory failure with hypoxemia Status: Chronic (6) ICD (implantable cardioverter-defibrillator) in place Status: Chronic (7) Paroxysmal atrial flutter Status: Chronic (8) CHF (congestive heart failure) Status: Chronic Qualifiers: Heart failure type: systolic Heart failure chronicity: chronic Qualified Codes: I50.22 - Chronic systolic (congestive) heart failure Clinical Quality Measures DVT/VTE Risk/Contraindication: Risk Factor Score Per Nursin RFS Level Per Nursing on Admit: 3=High XIN MASTERSON MD Mar 29, 2019 09:35 POS
[2019-03-29] MEDS ORDERED: FURO-124 PO (09:51)
[2019-03-29] MEDS ORDERED: FLUT1DIS26 IH (09:56)
--- NOTE | 2019-03-29 10:33 | NUR ---
SPOKE WITH PT (SHE HAD HER BOTTLES WITH HER) WELL GOING THRU THE EXT MED HISTORY TO COMPLETE THE MED REC. PT WAS ABLE TO TELL ME HOW/WHEN SHE TAKES ALL HER MEDS; EVERYTHING MATCHED THE EXT MED HISTORY. PT INDICATED THE AMIODARONE, LISINOPRIL, AND IRON WERE DISCONTINUED. OTC MEDS: TYLENOL CETIRIZINE VIT D MTV MUCINEX
--- NOTE | 2019-03-29 11:45 | Consultation-Cardiology ---
HPI-Cardiology Cardiology Consultation: Date of Consultation 03/29/19 Time Seen by a Provider: 09:00 Date of Admission Attending Physician Jyothi Serrano MD Admitting Physician No,Local Physician Consulting Physician HENRY SMITH MD, MA, FACP, FACC, FSCAI, CCDS HPI: Chief Complaint: CC: Progressive shortness of breath HPI Ms. Hurlye is a 68 year old female admitted to [facility] from the ED from home. She reports over the last 2-3 days she has had progressively increased dyspnea. She reports heaviness in her chest. She reports frequent, non-productive cough. She states she generally has been feeling unwell. She reports yesterday she got up, took her oxygen off so she could get ready for episcopal. She reports that after just a few steps she felt as though she could not catch her breath. She put her oxygen back on, which did not seem to help. She reports a feeling of "wheezing" in her chest. She reports increasing fatigue. No c/o CP, palpitations, syncope, near syncope or LE swelling. She states she has been compliant with her medications. She reports her breathing is somewhat better than at the time of admission. Review of Systems-Cardiology Review of Systems Constitutional: No chills, No fever; malaise Eyes: No vision change Ears/Nose/Throat: No epistaxis, No recent hearing loss Respiratory: As described under HPI Cardiovascular: As described under HPI Gastrointestinal: No constipation, No diarrhea, No nausea, No vomiting Genitourinary: No dysuria, No hematuria Musculoskeletal: no symptoms reported Skin: No rash on exposed areas, No ulcerations on exposed areas Psychiatric/Neurological: No anxiety, No depression, No seizure, No focal weakness, No syncope Hematologic: No bleeding abnormalities All Other Systems Reviewed Negative Unless Noted: Yes YBQ-Jkdxtj-Ywtfxx Hx Patient Social History Alcohol Use: Denies Use Recreational Drug Use: No Smoking Status: Never a Smoker 2nd Hand Smoke Exposure: No Recent Foreign Travel: No Recent Infectious Disease Expo: No Immunizations Up To Date Date of Influenza Vaccine: Feb 06, 2012 Past Medical History PMH As described under Assessment. Family Medical History Family History: Patient reports no known family medical history. Allergies and Home Medications Allergies Coded Allergies: No Known Drug Allergies (Unverified , 11/03/11) Home Medications Acetaminophen 325 Mg Tablet, 650 MG PO Q6H PRN for PAIN-MILD, (Reported) Albuterol Sulfate 18 Gm Hfa.aer.ad, 2 PUFF INH QID PRN for SHORTNESS OF BREATH, (Reported) Allopurinol 100 Mg Tablet, 100 MG PO DAILY, (Reported) Apixaban 5 Mg Tablet, 5 MG PO BID, (Reported) Calcitriol 0.25 Mcg Capsule, 0.25 MCG PO MoWeFr, (Reported) Cetirizine HCl 10 Mg Tablet, 10 MG PO HS PRN for ALLERGIES, (Reported) Cholecalciferol (Vitamin D3) 2,000 Unit Capsule, 2,000 UNIT PO DAILY, (Reported) Clotrimazole/Betamethasone Dip 15 Gm Cream..g., TOP BID, (Reported) Fluticasone Propionate 16 Gm [place].susp, 1 SPRAY NS HS, (Reported) Fluticasone/Salmeterol 1 Each Blst.w.dev, 1 EACH IH BID, (Reported) Folic Acid/Mv,Fe,Other Min 1 Each Tablet, 1 TAB PO DAILY, (Reported) Furosemide 40 Mg Tablet, 40 MG PO BID, (Reported) Guaifenesin 600 Mg Tab.er.12h, 600 MG PO BID PRN for CONGESTION, (Reported) Metoprolol Tartrate 50 Mg Tablet, 50 MG PO BID, (Reported) Potassium Chloride 10 Meq Tablet.er, 10 MEQ PO DAILY, (Reported) Tiotropium [place] 4 Gm Mist.inhal, 2 PUFF INH DAILY, (Reported) Patient Home Medication List Home Medication List Reviewed: Yes Physical Exam-Cardiology Physical Exam Vital Signs/I&O 03/28/19 03/29/19 03/29/19 03/29/19 23:53 00:09 00:57 03:00 Temp 36.8 37.2 Pulse 80 96 Resp 22 B/P (MAP) 142/90 Pulse Ox 92 95 94 O2 Delivery Nasal Cannula Nasal Cannula Nasal Cannula O2 Flow Rate 2.00 2.00 2.00 03/29/19 03/29/19 03/29/19 03/29/19 04:00 06:40 08:00 08:41 Temp 36.6 36.4 Pulse 81 77 Resp 22 16 B/P (MAP) 144/68 (93) 137/64 (88) Pulse Ox 94 95 94 O2 Delivery Nasal Cannula Nasal Cannula Nasal Cannula Nasal Cannula O2 Flow Rate 2.00 2.00 2.00 2.00 03/29/19 03/29/19 10:29 11:12 Temp 36.4 Pulse 71 Pulse Ox 94 94 O2 Delivery Nasal Cannula O2 Flow Rate 2.00 FiO2 28 Capillary Refill : Less Than 3 Seconds Constitutional: AAO x 3, well-developed, well-nourished HEENT: PERRL, oral hygience is good Neck: No carotid bruit; carotid pulses are 2 + bilaterally Respiratory: No accessory muscle use, No respiratory distress; chest expansion is symmetric, chest is bilaterally symmetric, rhonchi (scattered), other (fair air entry; diminished lower lobes) Cardiovascular: regular rate-rhythm; No JVD; S1 and S2 Gastrointestinal: No tender; soft, round, audible bowel sounds Rectal: deferred Extremities: no lower extremity edema bilateral Neurologic/Psychiatric: grossly intact Skin: No rash on exposed areas, No ulcerations on exposed areas Data Review Labs Laboratory Tests 03/28/19 21:28: White Blood Count 8.4, Red Blood Count 3.43L, Hemoglobin 9.9L, Hematocrit 32L, Mean Corpuscular Volume 93, Mean Corpuscular Hemoglobin 29, Mean Corpuscular Hemoglobin Concent 31L, Red Cell Distribution Width 14.9H, Platelet Count 174, Mean Platelet Volume 11.3H, Neutrophils (%) (Auto) 80H, Lymphocytes (%) (Auto) 10L, Monocytes (%) (Auto) 9, Eosinophils (%) (Auto) 1, Basophils (%) (Auto) 0, Neutrophils # (Auto) 6.7, Lymphocytes # (Auto) 0.8L, Monocytes # (Auto) 0.8, Eosinophils # (Auto) 0.1, Basophils # (Auto) 0.0, Sodium Level 138, Potassium Level 3.9, Chloride Level 101, Carbon Dioxide Level 25, Anion Gap 12, Blood Urea Nitrogen 21H, Creatinine 1.43H, Estimat Glomerular Filtration Rate 44, BUN/Creatinine Ratio 15, Glucose Level 102, Calcium Level 9.2, Corrected Calcium 9.3, Total Bilirubin 0.9, Aspartate Amino Transf (AST/SGOT) 20, Alanine Aminotransferase (ALT/SGPT) 25, Alkaline Phosphatase 59, C-Reactive Protein High Sensitivity 4.10H, Total Protein 7.2, Albumin 3.9 03/28/19 22:27: Lactic Acid Level 1.48 03/29/19 10:02: C-Reactive Protein High Sensitivity 4.59H, Erythrocyte Sedimentation Rate 62H A/P-Cardiology Assessment/Admission Diagnosis Multifactorial shortness of breath (see below) Pneumonia -management per medical/pulmonary services services H/O nonischemic cardiomyopathy with an ejection fraction between 30 and 35% on serial echocardiograms previously. Most recent echocardiogram of Mar 24, 2019 shows LVEF 50-55%, LA mild to mod dilated; Mod-severe MR and TR. PASP 60mmHg Cardiac cath of October [address] Issa showed angiographically normal coronaries Chronic systolic and diastolic CHF due to nonischemic cardiomyopathy currently clinically compensated Intolerance to ORAL-inhib / ARB due to worsening renal function Suspected sarcoidosis, followed by Dr Rose. 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 Superficial dehiscence at the device insertion site, healed by secondary intention. Device functioning normally per interrogation of Feb 2019 Paroxysmal atrial flutter with an intermittent rapid ventricular response. In July 2012, she received one shock ICD for atrial flutter but has not has not re ceived any since. She has not had any syncope or presyncope. Intolerance to digoxin (results in N/V and poor apetite) Chronic LBBB CKD-4, being followed by Dr Huff History of bronchial asthma, managed by Dr Rose Chronic anticoagulation with Eliquis therapy for stroke prophylaxis. MAXIM, treated with CPAP H/o pulm hypertension on echo studies of 2011,2012, 2013, echo studies of 2015 and 2017 had shown PASP approx 30-35 mmHg. Most recent echo of Mar 2019 showed PASP 60mmHg Mild carotid dz per u/s of Mar 2019 Discussion and Recomendations Complex management issue due to multiple comorbidities that are outline above Treatment of pneumonia is with medical/pulmonary services Continue beta-yahaira iv diuretics Monitor lab closely Further recs will be based on her hospital course We would like to thank Medical Services for this consult Clinical Quality Measures DVT/VTE Risk/Contraindication: Risk Factor Score Per Nursin RFS Level Per Nursing on Admit: 3=High HENRY SMITH MD FACP FAC CCDS Mar 29, 2019 11:44 POS
--- NOTE | 2019-03-29 13:10 | NUR ---
CM/SS visited patient to assess for needs. Plan: The patient states that when she discharges she plans to return home. The patient is on oxygen and did bring her portable tank to the hospital with her. The patient is currently on 2L. Summary: The patient states that she does not currently have any needs. CM/SS will continue to follow to see if patient needs a taxi voucher to get home when discharged. Addendum: 03/29/19 at 1617 by APOLINAR LAWRENCE [employer]IT TESTER social work note reviewed and approved
[2019-03-29] MEDS ORDERED: guaiFENesin (MUCINEX) 600 MG TAB PO PRN (14:45)
[2019-03-29] MEDS ORDERED: ACETAMINOPHEN 325 MG TABLET PO PRN (14:45)
[2019-03-29] MEDS: CALCITRIOL 0.25 MCG (ROCALTROL) CAPSULE PO SCH (15:02)
[2019-03-29] MEDS: FUROSEMIDE 40 MG (LASIX) TAB PO SCH (17:10)
[2019-03-29] MEDS: RT-ADVAIR HFA 115/21 MCG PER PUFF IH SCH (18:12)
[2019-03-29] MEDS: FLUTICASONE NASAL SPRAY (FLONASE) 16 GM BTL NS SCH (20:43)
[2019-03-29] MEDS ORDERED: LORATADINE (CLARITIN) 10 MG TAB PO PRN (21:00)
[2019-03-30] MEDS: RT-ALBUTEROL/IPRATROPIUM 3 ML (DUONEB) VIAL INH SCH ×6 (01:56→22:23)
[2019-03-30 03:55] VITALS: BP 131/68
[2019-03-30] MEDS: methylPREDNISolone 40 MG/ML (Solu-MEDROL) VIAL IV SCH ×4 (03:57→22:23)
[2019-03-30] MEDS: UMECLIDINIUM BROMIDE (INCRUSE ELLIPTA) 7'S IH SCH (06:33)
[2019-03-30] MEDS: RT-ADVAIR HFA 115/21 MCG PER PUFF IH SCH (06:33)
[2019-03-30] MEDS: FUROSEMIDE 40 MG (LASIX) TAB PO SCH ×2 (06:42→16:40)
[2019-03-30] MEDS: VITAMIN D3 1,000 UNITS (CHOLECALCIFEROL) TABLET PO SCH (06:42)
[2019-03-30] MEDS: KCL 10 MEQ TAB (MICRO K) PO SCH (06:42)
[2019-03-30 06:53] LABS: CALCIUM 9.6 MG/DL (8.5-10.1); CREATININE SERUM 1.53 MG/DL (0.60-1.30); MAGNESIUM 2.3 MG/DL (1.6-2.4); POTASSIUM 3.8 MMOL/L (3.6-5.0)
--- NOTE | 2019-03-30 07:22 | Pulmonary Progress Note ---
MORGAN BONILLA A MEDICAL STUDENT 03/30/19 0722: Subjective Date Seen by a Provider: Mar 30, 2019 Time Seen by a Provider: 07:19 Subjective/Events-last exam Pt states she feels a little bit better, pt had no acute events over night. Pt states that she still desats when she gets up and walks around. Sepsis Event Evaluation Height, Weight, BMI Height: 5'5.00" Weight: 243lbs. 0.2oz. 97.762674xn; 40.31 BMI Method:Stated Focused Exam Lactate Level 03/28/19 22:27: Lactic Acid Level 1.48 Exam Exam Vital Signs Date Time Temp Pulse Resp B/P (MAP) Pulse Ox O2 Delivery O2 Flow Rate FiO2 03/30/19 06:36 92 Nasal Cannula 2.00 03/30/19 06:36 92 Nasal Cannula 2.00 03/30/19 06:34 87 Room Air 03/30/19 03:55 36.4 97 18 131/68 (89) 94 High Flow N/C 2.00 03/30/19 01:56 91 Nasal Cannula 2.00 03/29/19 23:44 36.4 80 18 131/60 (83) 92 High Flow N/C 2.00 03/29/19 22:00 118/50 (72) 03/29/19 21:10 94 Nasal Cannula 2.00 03/29/19 20:40 Nasal Cannula 2.00 03/29/19 20:04 36.7 72 18 123/56 (78) 94 High Flow N/C 2.00 03/29/19 18:17 93 Nasal Cannula 2.00 03/29/19 18:12 93 Nasal Cannula 2.00 03/29/19 15:20 36.7 70 18 136/62 (86) 94 High Flow N/C 2.00 03/29/19 14:36 92 Nasal Cannula 2.00 03/29/19 12:09 36.6 71 18 123/60 (81) 94 Nasal Cannula 2.00 03/29/19 11:12 36.4 71 94 28 03/29/19 10:29 94 Nasal Cannula 2.00 03/29/19 08:41 36.4 77 16 137/64 (88) 94 Nasal Cannula 2.00 03/29/19 08:00 Nasal Cannula 2.00 I & O 03/30/19 07:00 Intake Total 2140 ml Output Total 1050 ml Balance 1090 ml Height & Weight Height: 5'5.00" Weight: 243lbs. 0.2oz. 97.208405dm; 40.31 BMI Method:Stated General Appearance: No Apparent Distress, Obese HEENT: Moist Mucous Membranes; No Scleral Icterus (L), No Scleral Icterus (R) Neck: Normal Inspection, Supple; No JVD Respiratory: No Accessory Muscle Use, No Respiratory Distress, Wheezing (expir atory) Cardiovascular: Regular Rate, Rhythm, No JVD, No Murmur Capillary Refill: Less Than 3 Seconds Gastrointestinal: normal bowel sounds, non tender, soft Extremity: Normal Capillary Refill, No Calf Tenderness Neurologic/Psychiatric: Alert, Oriented x3, Normal Mood/Affect Skin: Normal Color, Warm/Dry Lymphatic: No Adenopathy Results Lab Laboratory Tests 03/28/19 21:28 03/30/19 05:29 Assessment/Plan Assessment/Plan Acute respiratory failure with failed outpatient therapy -duoneb -steroids -cefepime -recheck cxr AECOPD -duoneb -prednisone 40mg daily Acute on chronic diastolic heart failure -May 2017 echo LVEF 55-60% -lasix -decrease to 20mg daily secondary to worsening kidney function CKD -creat increased to 1.53 today -decrease lasix to 20mg daily Paroximal Afib -continue metoperlol -continue Eliquis Hx of HTN DVT prophylaxis -on Eliquis PHILLIP ROSE DO 03/30/19 1520: Exam Exam General Appearance: No Apparent Distress, Obese HEENT: Moist Mucous Membranes; No Scleral Icterus (L), No Scleral Icterus (R) Neck: Normal Inspection, Supple; No JVD Respiratory: No Accessory Muscle Use, No Respiratory Distress Cardiovascular: Regular Rate, Rhythm, No JVD, No Murmur Capillary Refill: Less Than 3 Seconds Gastrointestinal: normal bowel sounds, non tender, soft Extremity: Normal Capillary Refill, No Calf Tenderness Neurologic/Psychiatric: Alert, Oriented x3, Normal Mood/Affect Skin: Normal Color, Warm/Dry Lymphatic: No Adenopathy Assessment/Plan Assessment/Plan Acute respiratory failure with failed outpatient therapy -No fever, no leukocytosis -duoneb -steroids -cefepime -recheck cxr AECOPD -duoneb -prednisone 40mg daily Acute on chronic diastolic heart failure -May 2017 echo LVEF 55-60% -lasix -decrease to 20mg daily secondary to worsening kidney function CKD -creat increased to 1.53 today -decrease lasix to 20mg daily Paroximal Afib -continue metoperlol -continue Eliquis Hx of HTN DVT prophylaxis -on Eliquis Supervisory-Addendum Brief Verification & Attestation Participated in pt care: history Personally performed: exam, history Care discussed with: Medical Student Procedures: n/a Verification and Attestation of Medical Student E/M Service A medical student performed and documented this service in my presence. I reviewed and verified all information documented by the medical student and made modifications to such information, when appropriate. I personally performed the physical exam and medical decision making. Phillip Rose, Mar 30, 2019,15:21 MORGAN BONILLA MEDICAL STUDENT Mar 30, 2019 07:22 PHILLIP RONQUILLO DO Mar 30, 2019 15:20 POS
[2019-03-30 08:00] VITALS: BP 126/61
[2019-03-30] MEDS: ALLOPURINOL 100 MG (ZYLOPRIM) TAB PO SCH (08:38)
[2019-03-30] MEDS: APIXABAN 5 MG (ELIQUIS) TABLET PO SCH ×2 (08:38→20:05)
[2019-03-30] MEDS: meTOprolol TARTRATE 50 MG (LOPRESSOR) TAB PO SCH ×2 (08:38→20:05)
[2019-03-30] MEDS: CEFEPIME INJECTION 2,000 MG in WATER (STERILE) FOR INJECTION 20 ML IV SCH (08:39)
--- NOTE | 2019-03-30 09:31 | Progress Note - Hospitalist ---
Subjective HPI/CC On Admission Date Seen by Provider: Mar 30, 2019 Time Seen by Provider: 09:29 Patient is a 68-year-old female known to me from previous admissions who presented to the ER due to shortness of breath. She was recently admitted for a COPD exacerbation and was treated with spheroids which she has since comp leted. Over the last week she has continued to have worsening shortness of breath and dyspnea on exertion. She has been compliant with her home inhalers and home oxygen. Despite this she has had progressive dyspnea prompting her to seek evaluation in the emergency department. This morning she states she is feeling better but still has some shortness of breath mostly with exertion. In the ER she was found to have a right lower lobe pneumonia and was admitted for IV steroids and antibiotics. Subjective/Events-last exam Pt reports feeling better. Still has a tightness in her chest. Was able to ambulate to the bathroom and around her room more easily. No other complaints. Focused Exam Lactate Level 03/28/19 22:27: Lactic Acid Level 1.48 Objective Exam Vital Signs Vital Signs Date Time Temp Pulse Resp B/P (MAP) Pulse Ox O2 Delivery O2 Flow Rate FiO2 03/30/19 08:00 36.2 91 18 126/61 (82) 95 Nasal Cannula 2.00 03/29/19 11:12 28 Capillary Refill : Less Than 3 Seconds General Appearance: No Apparent Distress, WD/WN, Obese Respiratory: Lungs Clear, No Respiratory Distress Cardiovascular: Regular Rate, Rhythm, No Murmur Gastrointestinal: Normal Bowel Sounds, Non Tender, Soft Neurologic/Psychiatric: Alert, Oriented x3 Results/Procedures Lab Laboratory Tests 03/30/19 05:29 Patient resulted labs reviewed. Imaging: Reviewed Imaging Report Assessment/Plan Assessment and Plan Assess & Plan/Chief Complaint COPD with Lower Respiratory Tract Infection RLL Pneumonia Acute respiratory failure with hypoxia Pulmonology consulted, appreciate recs Continue Steroids Continue Cefepime ORAL-I level negative, RF negative Will need home nebulizer at discharge Will add nasal saline due to nasal dryness HTN A-fib- paroxysmal Continue home meds Eliquis Cardiology consulted, appreciate recs Echo from last admission shows preserved EF Diagnosis/Problems Diagnosis/Problems (1) Right lower lobe pneumonia Status: Acute Qualifiers: Pneumonia type: due to unspecified organism Qualified Codes: J18.1 - Lobar pneumonia, unspecified organism (2) COPD with acute exacerbation Status: Acute (3) CKD (chronic kidney disease) Qualifiers: Chronic kidney disease stage: stage 3 (moderate) Qualified Codes: N18.3 - Chronic kidney disease, stage 3 (moderate) (4) Nonischemic cardiomyopathy Status: Chronic (5) Acute respiratory failure with hypoxemia Status: Chronic (6) ICD (implantable cardioverter-defibrillator) in place Status: Chronic (7) Paroxysmal atrial flutter Status: Chronic (8) CHF (congestive heart failure) Status: Chronic Qualifiers: Heart failure type: systolic Heart failure chronicity: chronic Qualified Codes: I50.22 - Chronic systolic (congestive) heart failure Clinical Quality Measures DVT/VTE Risk/Contraindication: Risk Factor Score Per Nursin RFS Level Per Nursing on Admit: 3=High XIN MASTERSON MD Mar 30, 2019 09:31 POS
[2019-03-30] MEDS ORDERED: SALINE NASAL SPRAY (OCEAN) 45 ML BTL PRN (09:45)
--- NOTE | 2019-03-30 09:50 | Progress Note - Cardiology ---
Cardiology SOAP Progress Note Subjective: Sitting up in bed. States SOB is somewhat better today. No c/o CP, palpitations. C/O oxygen desat when up ambulating without oxygen. Objective: I&O/Vital Signs 03/30/19 03/30/19 03/30/19 03/30/19 01:56 03:55 06:34 06:36 Temp 36.4 Pulse 97 Resp 18 B/P (MAP) 131/68 (89) Pulse Ox 91 94 87 92 O2 Delivery Nasal Cannula High Flow N/C Room Air Nasal Cannula O2 Flow Rate 2.00 2.00 2.00 03/30/19 03/30/19 03/30/19 03/30/19 06:36 08:00 08:00 09:52 Temp 36.2 Pulse 91 Resp 18 B/P (MAP) 126/61 (82) Pulse Ox 92 95 93 93 O2 Delivery Nasal Cannula Nasal Cannula Nasal Cannula Nasal Cannula O2 Flow Rate 2.00 2.00 2.00 2.00 03/30/19 12:49 Temp 36.3 Pulse 71 Resp 18 B/P (MAP) 121/79 (93) Pulse Ox 97 O2 Delivery Nasal Cannula O2 Flow Rate 2.00 03/30/19 00:00 Intake Total 1640 ml Output Total 650 ml Balance 990 ml Weight (Pounds): 243 Weight (Ounces): 0.2 Weight (Calculated Kilograms): 97.817801 Constitutional: AAO x 3, well-developed, well-nourished Respiratory: No accessory muscle use, No respiratory distress; chest expansion is symmetric, chest is bilaterally symmetric, rhonchi (scattered), other (fair air entry; diminished lower lobes) Cardiovascular: regular rate-rhythm; No JVD; S1 and S2 Gastrointestional: No tender; soft, round, audible bowel sounds Extremities: no lower extremity edema bilateral Neurologic/Psychiatric: grossly intact Skin: No rash on exposed areas, No ulcerations on exposed areas Results/Procedures: Labs Laboratory Tests 03/30/19 05:29: Sodium Level 139, Potassium Level 3.8, Chloride Level 100, Carbon Dioxide Level 24, Anion Gap 15H, Blood Urea Nitrogen 34H, Creatinine 1.53H, Estimat Glomerular Filtration Rate 41, BUN/Creatinine Ratio 22, Glucose Level 150H, Calcium Level 9.6, Magnesium Level 2.3 Microbiology 03/28/19 Blood Culture - Preliminary, Resulted No growth A/P: Assessment: Multifactorial shortness of breath (see below) Pneumonia -management per medical/pulmonary services services H/O nonischemic cardiomyopathy with an ejection fraction between 30 and 35% on serial echocardiograms previously. Most recent echocardiogram of Mar 24, 2019 shows LVEF 50-55%, LA mild to mod dilated; Mod-severe MR and TR. PASP 60mmHg Cardiac cath of October [address] Issa showed angiographically normal coronaries Chronic systolic and diastolic CHF due to nonischemic cardiomyopathy currently clinically compensated Intolerance to ORAL-inhib / ARB due to worsening renal function Suspected sarcoidosis, followed by Dr Rose. 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 Rose bar pointer S/p dual chamber ICD, device at [facility] on interrogation of 09/21/18 with pulse generator change out on 09-22-18. Superficial dehiscence at the device insertion site, healed by secondary intention. Device functioning normally per interrogation of Feb 2019 Paroxysmal atrial flutter with an intermittent rapid ventricular response. In July 2012, she received one shock ICD for atrial flutter but has not has not re ceived any since. She has not had any syncope or presyncope. Intolerance to digoxin (results in N/V and poor apetite) Chronic LBBB CKD-4, being followed by Dr Huff History of bronchial asthma, managed by Dr Rose Chronic anticoagulation with Eliquis therapy for stroke prophylaxis. MAXIM, treated with CPAP H/o pulm hypertension on echo studies of 2011,2012, 2013, echo studies of 2015 and 2017 had shown PASP approx 30-35 mmHg. Most recent echo of Mar 2019 showed PASP 60mmHg Mild carotid dz per u/s of Mar 2019 Plan: Complex management issue due to multiple comorbidities that are outline above Treatment of pneumonia is with medical/pulmonary services Continue beta-yahaira Continue oral diuretics Monitor lab closely VIRGIL CORNEJO Mar 30, 2019 09:50 POS
[2019-03-30 12:49] VITALS: BP 121/79
--- NOTE | 2019-03-30 13:08 | Progress Note - Cardiology ---
Cardiology SOAP Progress Note Subjective: No cp. Still short of breath. Still has malaise and weakness. No palp or syncope Objective: I&O/Vital Signs 03/30/19 03/30/19 03/30/19 03/30/19 01:56 03:55 06:34 06:36 Temp 36.4 Pulse 97 Resp 18 B/P (MAP) 131/68 (89) Pulse Ox 91 94 87 92 O2 Delivery Nasal Cannula High Flow N/C Room Air Nasal Cannula O2 Flow Rate 2.00 2.00 2.00 03/30/19 03/30/19 03/30/19 03/30/19 06:36 08:00 08:00 09:52 Temp 36.2 Pulse 91 Resp 18 B/P (MAP) 126/61 (82) Pulse Ox 92 95 93 93 O2 Delivery Nasal Cannula Nasal Cannula Nasal Cannula Nasal Cannula O2 Flow Rate 2.00 2.00 2.00 2.00 03/30/19 12:49 Temp 36.3 Pulse 71 Resp 18 B/P (MAP) 121/79 (93) Pulse Ox 97 O2 Delivery Nasal Cannula O2 Flow Rate 2.00 03/30/19 00:00 Intake Total 1640 ml Output Total 650 ml Balance 990 ml Weight (Pounds): 243 Weight (Ounces): 0.2 Weight (Calculated Kilograms): 97.818046 Constitutional: AAO x 3, well-developed, well-nourished Respiratory: No accessory muscle use, No respiratory distress; chest expansion is symmetric, chest is bilaterally symmetric, rhonchi (scattered), other (fair air entry; diminished lower lobes) Cardiovascular: regular rate-rhythm; No JVD; S1 and S2 Gastrointestional: No tender; soft, round, audible bowel sounds Extremities: no lower extremity edema bilateral Neurologic/Psychiatric: grossly intact Skin: No rash on exposed areas, No ulcerations on exposed areas Results/Procedures: Labs Laboratory Tests 03/30/19 05:29: Sodium Level 139, Potassium Level 3.8, Chloride Level 100, Carbon Dioxide Level 24, Anion Gap 15H, Blood Urea Nitrogen 34H, Creatinine 1.53H, Estimat Glomerular Filtration Rate 41, BUN/Creatinine Ratio 22, Glucose Level 150H, Calcium Level 9.6, Magnesium Level 2.3 Microbiology 03/28/19 Blood Culture - Preliminary, Resulted No growth Laboratory Tests 03/28/19 21:28 03/30/19 05:29 A/P: Assessment: Multifactorial shortness of breath (see below) Pneumonia -management per medical/pulmonary services services H/O nonischemic cardiomyopathy with an ejection fraction between 30 and 35% on serial echocardiograms previously. Most recent echocardiogram of Mar 24, 2019 shows LVEF 50-55%, LA mild to mod dilated; Mod-severe MR and TR. PASP 60mmHg Cardiac cath of October [address] Issa showed angiographically normal coronaries Chronic systolic and diastolic CHF due to nonischemic cardiomyopathy currently clinically compensated Intolerance to ORAL-inhib / ARB due to worsening renal function Suspected sarcoidosis, followed by Dr Rose. 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 Rose moving consultant S/p dual chamber ICD, device at [facility] on interrogation of 09/21/18 with pulse generator change out on 09-22-18. Superficial dehiscence at the device insertion site, healed by secondary intention. Device functioning normally per interrogation of Feb 2019 Paroxysmal atrial flutter with an intermittent rapid ventricular response. In July 2012, she received one shock ICD for atrial flutter but has not has not received any since. She has not had any syncope or presyncope. Intolerance to digoxin (results in N/V and poor apetite) Chronic LBBB CKD-4, being followed by Dr Huff History of bronchial asthma, managed by Dr Rose Chronic anticoagulation with Eliquis therapy for stroke prophylaxis. MAXIM, treated with CPAP H/o pulm hypertension on echo studies of 2011,2012, 2013, echo studies of 2015 and 2017 had shown PASP approx 30-35 mmHg. Most recent echo of Mar 2019 showed PASP 60mmHg Mild carotid dz per u/s of Mar 2019 Plan: * Complex management due to multiple comorbidities * Continue current management * [facility] managing pneumonia * Monitor lab * I answered her and her 's CV-related questions HENRY SMITH MD FACP FAC CCDS Mar 30, 2019 13:08 POS
--- NOTE | 2019-03-30 13:15 | NUR ---
Pastoral care visit.
[2019-03-30 15:40] VITALS: BP 140/68
[2019-03-30 19:36] VITALS: BP 131/60
[2019-03-30] MEDS: FLUTICASONE NASAL SPRAY (FLONASE) 16 GM BTL NS SCH (20:06)
[2019-03-31] VITALS: BP 134/80
[2019-03-31] MEDS: RT-ALBUTEROL/IPRATROPIUM 3 ML (DUONEB) VIAL INH SCH ×3 (02:53→10:30)
[2019-03-31] MEDS: methylPREDNISolone 40 MG/ML (Solu-MEDROL) VIAL IV SCH ×2 (03:26→09:36)
[2019-03-31 04:47] VITALS: BP 129/80
[2019-03-31] MEDS: KCL 10 MEQ TAB (MICRO K) PO SCH (06:35)
[2019-03-31] MEDS: VITAMIN D3 1,000 UNITS (CHOLECALCIFEROL) TABLET PO SCH (06:35)
[2019-03-31] MEDS: FUROSEMIDE 40 MG (LASIX) TAB PO SCH (06:35)
[2019-03-31] MEDS: RT-ADVAIR HFA 115/21 MCG PER PUFF IH SCH (07:08)
[2019-03-31] MEDS: UMECLIDINIUM BROMIDE (INCRUSE ELLIPTA) 7'S IH SCH (07:12)
--- NOTE | 2019-03-31 07:26 | Diagnostic Imaging Report ---
INDICATION: Dyspnea. COMPARISON: 03/28/2019. FINDINGS: Cardiomegaly is again noted. There has been some decrease in infiltrate in the right lung, though interstitial infiltrates remain present bilaterally. Blunting of left costophrenic angle. Pacemaker on the left unchanged. Upper lungs are clear without evidence of pulmonary edema. IMPRESSION: 1. There has been improvement with decreasing infiltrates since previous exam. 2. Continued cardiomegaly with blunting of left costophrenic angle likely representing small pleural effusion. Dictated by: Dictated on workstation # [id number]
[2019-03-31] MEDS: meTOprolol TARTRATE 50 MG (LOPRESSOR) TAB PO SCH (07:57)
[2019-03-31] MEDS: CALCITRIOL 0.25 MCG (ROCALTROL) CAPSULE PO SCH (07:57)
[2019-03-31] MEDS: APIXABAN 5 MG (ELIQUIS) TABLET PO SCH (07:58)
[2019-03-31] MEDS: CEFEPIME INJECTION 2,000 MG in WATER (STERILE) FOR INJECTION 20 ML IV SCH (07:58)
[2019-03-31] MEDS: ALLOPURINOL 100 MG (ZYLOPRIM) TAB PO SCH (07:58)
[2019-03-31 08:00] VITALS: BP 124/69
--- NOTE | 2019-03-31 08:50 | Pulmonary Progress Note ---
MORGAN BONILLA A MEDICAL STUDENT 03/31/19 0850: Subjective Date Seen by a Provider: Mar 31, 2019 Time Seen by a Provider: 08:47 Subjective/Events-last exam Pt satting 96% on her normal 2L O2. Pt has not current complaints at this time, no acute events over night. Pt states she fells better and is able to get up and walk around without getting short of breath. Pt states she would like a concentrator and nebulizer for home. Pt states she feels comfortable going home. Sepsis Event Evaluation Height, Weight, BMI Height: 5'5.00" Weight: 243lbs. 0.2oz. 97.989722gs; 40.31 BMI Method:Stated Focused Exam Lactate Level 03/28/19 22:27: Lactic Acid Level 1.48 Exam Exam Vital Signs Date Time Temp Pulse Resp B/P (MAP) Pulse Ox O2 Delivery O2 Flow Rate FiO2 03/31/19 08:00 Nasal Cannula 2.00 03/31/19 07:15 Nasal Cannula 2.00 03/31/19 07:14 96 Nasal Cannula 2.00 03/31/19 04:47 36.6 69 20 129/80 (96) 96 Nasal Cannula 2.00 03/31/19 02:52 98 Nasal Cannula 2.00 03/31/19 00:00 36.6 68 20 134/80 (98) 96 Nasal Cannula 1.00 03/30/19 22:22 98 Nasal Cannula 2.00 03/30/19 20:06 94 Nasal Cannula 2.00 03/30/19 20:00 Nasal Cannula 2.00 03/30/19 19:36 36.9 78 18 131/60 (83) 95 03/30/19 15:40 36.8 76 19 140/68 (92) 96 03/30/19 13:58 94 Nasal Cannula 2.00 03/30/19 12:49 36.3 71 18 121/79 (93) 97 Nasal Cannula 2.00 03/30/19 09:52 93 Nasal Cannula 2.00 I & O 03/31/19 07:00 Intake Total 1710 ml Output Total 2901 ml Balance -1191 ml Height & Weight Height: 5'5.00" Weight: 243lbs. 0.2oz. 97.503771fg; 40.31 BMI Method:Stated General Appearance: No Apparent Distress, Obese HEENT: Moist Mucous Membranes; No Scleral Icterus (L), No Scleral Icterus (R) Neck: Normal Inspection, Supple; No JVD Respiratory: No Accessory Muscle Use, No Respiratory Distress, Wheezing (slight expiratory) Cardiovascular: Regular Rate, Rhythm, No JVD, No Murmur Capillary Refill: Less Than 3 Seconds Gastrointestinal: normal bowel sounds, non tender, soft Extremity: Normal Capillary Refill, No Calf Tenderness Neurologic/Psychiatric: Alert, Oriented x3, Normal Mood/Affect Skin: Normal Color, Warm/Dry Lymphatic: No Adenopathy Results Lab Laboratory Tests 03/30/19 05:29 Assessment/Plan Assessment/Plan Acute respiratory failure with failed outpatient therapy -No fever, no leukocytosis, patient satting 96% on her normal 2L O2 NC -duoneb -steroids -cefepime -cxr showed: improvement with decreasing infiltrates since previous exam and continued cardiomegaly with blunting of left costophrenic angle likely representing small pleural effusion. AECOPD -duoneb -prednisone 40mg daily Acute on chronic diastolic heart failure -May 2017 echo LVEF 55-60% -lasix -betty diuresis secondary to worsening kidney function CKD -betty diuresis secondary to worsening kidney function Paroximal Afib -continue metoperlol -continue Eliquis Hx of HTN DVT prophylaxis -on Bessyquis PHILLIP MADRIGAL DO 03/31/19 1034: Subjective Time Seen by a Provider: 10:32 Assessment/Plan Assessment/Plan Acute respiratory failure with failed outpatient therapy -No fever, no leukocytosis, patient satting 96% on her normal 2L O2 NC -duoneb -steroids -cefepime -cxr showed: improvement with decreasing infiltrates since previous exam and continued cardiomegaly with blunting of left costophrenic angle likely representing small pleural effusion. AECOPD -duoneb -Currently on Solumedrol - D/C upon discharge Acute on chronic diastolic heart failure -May 2017 echo LVEF 55-60% -lasix CKD -betty diuresis secondary to worsening kidney function Paroximal Afib -continue metoprolol -continue Eliquis Hx of HTN DVT prophylaxis -on Eliquis Pt is ok for discharge from pulmonary standpoint. MORGAN BONILLA MEDICAL STUDENT Mar 31, 2019 08:50 PHILLIP RONQUILLO DO Mar 31, 2019 10:34 POS
--- NOTE | 2019-03-31 08:51 | Discharge Summary ---
Diagnosis/Chief Complaint Date of Admission Mar 28, 2019 at 22:25 Date of Discharge Discharge Date: Mar 31, 2019 Admission Diagnosis COPD Exacerbation with lower respiratory tract infection Primary Care No,Local Physician Discharge Diagnosis (1) Right lower lobe pneumonia Status: Acute (2) COPD with acute exacerbation Status: Acute (3) CKD (chronic kidney disease) (4) Nonischemic cardiomyopathy Status: Chronic (5) Acute respiratory failure with hypoxemia Status: Chronic (6) ICD (implantable cardioverter-defibrillator) in place Status: Chronic (7) Paroxysmal atrial flutter Status: Chronic (8) CHF (congestive heart failure) Status: Chronic Discharge Summary Discharge Physical Exam Allergies: Coded Allergies: No Known Drug Allergies (Unverified , 11/03/11) Vitals & I&Os Vital Signs Date Time Temp Pulse Resp B/P (MAP) Pulse Ox O2 Delivery O2 Flow Rate FiO2 03/31/19 08:00 36.5 70 20 124/69 (87) 95 High Flow N/C 2.00 03/29/19 11:12 28 Hospital Course Labs (last 24 hrs) Microbiology 03/28/19 Blood Culture - Preliminary, Resulted No growth Patient resulted labs reviewed. Imaging: Reviewed Imaging Report Discharge Home Medications: Active Scripts Active Reported Advair 250-50 Diskus (Fluticasone/Salmeterol) 1 Each Blst.w.dev 1 Each IH BID Lasix (Furosemide) 40 Mg Tablet 40 Mg PO BID Spiriva Respimat 2.5MCG/ACTUATION (Tiotropium [place]) 4 Gm Mist.inhal 2 Puff INH DAILY Potassium Chloride 10 Meq Tablet.er 10 Meq PO DAILY Allopurinol 100 Mg Tablet 100 Mg PO DAILY Calcitriol 0.25 Mcg Capsule 0.25 Mcg PO MOWEFR One Daily For Women Tablet (Folic Acid/Mv,Fe,Other Min) 1 Each Tablet 1 Tab PO DAILY Mucinex (Guaifenesin) 600 Mg Tab.er.12h 600 Mg PO BID PRN Clotrimazole-Betamethasone Crm (Clotrimazole/Betamethasone Dip) 15 Gm Cream..g. TOP BID Vitamin D-3 (Cholecalciferol (Vitamin D3)) 2,000 Unit Capsule 2,000 Unit PO DAILY Tylenol (Acetaminophen) 325 Mg Tablet 650 Mg PO Q6H PRN Fluticasone Propionate 16 Gm Baxter.susp 1 Baxter NS HS Ventolin Hfa (Albuterol Sulfate) 18 Gm Hfa.aer.ad 2 Puff INH QID PRN Metoprolol Tartrate 50 Mg Tablet 50 Mg PO BID Eliquis (Apixaban) 5 Mg Tablet 5 Mg PO BID Cetirizine HCl 10 Mg Tablet 10 Mg PO HS PRN Instructions to patient/family Please see electronic discharge instructions given to patient. Clinical Quality Measures DVT/VTE Risk/Contraindication: Risk Factor Score Per Nursin RFS Level Per Nursing on Admit: 3=High Problem Qualifiers (1) Right lower lobe pneumonia: Pneumonia type: due to unspecified organism Qualified Codes: J18.1 - Lobar pneumonia, unspecified organism (2) CKD (chronic kidney disease): Chronic kidney disease stage: stage 3 (moderate) Qualified Codes: N18.3 - Chronic kidney disease, stage 3 (moderate) (3) CHF (congestive heart failure): Heart failure type: systolic Heart failure chronicity: chronic Qualified Codes: I50.22 - Chronic systolic (congestive) heart failure XIN MASTERSON MD Mar 31, 2019 08:51 POS
[2019-03-31 12:00] VITALS: BP 116/77
[2019-03-31] MEDS ORDERED: CEFD300C3 PO (12:44)
--- NOTE | 2019-03-31 12:45 | Discharge Inst-Simple/Standard ---
Discharge Inst-Standard Patient Instructions/Follow Up Plan of Care/Instructions/FU: Please continue to take your medications as written. Please follow up with your PCP in the next week and with Dr Rose in 2 weeks. Activity as Tolerated: Yes Discharge Diet: Cardiac Diet Return to The Hospital For: Chest pain, shortness of breath, fever, if you feel you are getting worse. Planned Outpatient Orders/Ref. Pneu Vac Indicated: Yes XIN MASTERSON MD Mar 31, 2019 12:45 POS
--- NOTE | 2019-03-31 13:56 | NUR ---
CM/SS spoke with patient regarding discharge planning. Plan: The patient plans to return home. DME: The patient is established with [facility] and a choice form was signed and completed. The patient needs a nebulizer and information was sent to DME. No other needs at this time. Addendum: 03/31/19 at 1613 by APOLINAR ANGUIANO JOCELYN social work student note reviewed and approved.
[2019-03-31 14:33] VITALS: BP 116/77
== END 2019-03-31 14:30 | disposition home or self-care (01) | DRG 193 ==
LOC: EDUNIT# 21:24 → ER 21:25 → 4TH 22:25
PROVIDERS: ADMIT Internal Medicine; ATTEND Internal Medicine
DX: J18.1 Lobar pneumonia, unspecified organism (principal); J44.1 Chronic obstructive pulmonary disease with (acute) exacerbation; J96.01 Acute respiratory failure with hypoxia; I13.0 Hypertensive heart and chronic kidney disease with heart failure and stage 1 through stage 4 chronic kidney disease, or unspecified chronic kidney disease; I50.42 Chronic combined systolic (congestive) and diastolic (congestive) heart failure; N18.3 Chronic kidney disease, stage 3 (moderate); I48.92 Unspecified atrial flutter; I48.0 Paroxysmal atrial fibrillation; I49.3 Ventricular premature depolarization; I44.7 Left bundle-branch block, unspecified; I42.9 Cardiomyopathy, unspecified; I27.20 Pulmonary hypertension, unspecified; G47.33 Obstructive sleep apnea (adult) (pediatric); D86.9 Sarcoidosis, unspecified; Z95.810 Presence of automatic (implantable) cardiac defibrillator; Z90.710 Acquired absence of both cervix and uterus
CPT/HCPCS: 36415; 71045; 80048; 80053; 82103; 83605; 83735; 85025; 85652; 86021; 86038; 86141; 86431; 87040; 93005; 94640; 94760; 96374; 96375

== ENCOUNTER 2019-05-07 10:35 | Inpatient (IN) | payer OTHER, MEDICARE ==
[~2019-05-07] VITALS: Ht 165 cm; Wt 109.1 kg
[~2019-05-07 10:35] MED LIST changes: +ASPI-983 PO; +CEFD300C3 PO; +IPRA3AMP31 NEB
--- NOTE | 2019-05-07 10:56 | ED Cardiac General ---
History of Present Illness General Stated Complaint: SOA Source: patient, family (SON) History of Present Illness Date Seen by Provider: May 07, 2019 Time Seen by Provider: 10:38 Allergies and Home Medications Allergies Coded Allergies: No Known Drug Allergies (Unverified , 11/03/11) Home Medications Acetaminophen 325 Mg Tablet, 650 MG PO Q6H PRN for PAIN-MILD, (Reported) Albuterol Sulfate 18 Gm Hfa.aer.ad, 2 PUFF INH QID PRN for SHORTNESS OF BREATH, (Reported) Allopurinol 100 Mg Tablet, 100 MG PO DAILY, (Reported) Amiodarone HCl 200 Mg Tablet, 200 MG PO DAILY Prescribed by: ELVIRA VINES on 04/13/19950 Apixaban 5 Mg Tablet, 5 MG PO BID, (Reported) Aspirin 81 Mg Tablet.dr, 81 MG PO DAILY Prescribed by: ELVIRA VINES on 04/13/19950 Calcitriol 0.25 Mcg Capsule, 0.25 MCG PO MoWeFr, (Reported) Cetirizine HCl 10 Mg Tablet, 10 MG PO HS PRN for ALLERGIES, (Reported) Cholecalciferol (Vitamin D3) 2,000 Unit Capsule, 2,000 UNIT PO DAILY, (Reported) Clotrimazole/Betamethasone Dip 15 Gm Cream..g., 1 APPLIC TOP BID PRN for RASH, (Reported) Fluticasone Propionate 16 Gm [place].susp, 1 SPRAY NS HS, (Reported) Fluticasone/Salmeterol 1 Each Blst.w.dev, 1 EACH IH BID, (Reported) Folic Acid/Mv,Fe,Other Min 1 Each Tablet, 1 TAB PO DAILY, (Reported) Furosemide 40 Mg Tablet, 40 MG PO BID, (Reported) Ipratropium/Albuterol Sulfate 3 Ml Ampul.neb, 3 ML NEB TID PRN for SHORTNESS OF BREATH, (Reported) Metoprolol Tartrate 50 Mg Tablet, 50 MG PO BID, (Reported) Potassium Chloride 10 Meq Tablet.er, 10 MEQ PO DAILY, (Reported) Tiotropium [place] 4 Gm Mist.inhal, 2 PUFF INH DAILY, (Reported) Past Tfjlhfn-Xrjxtl-Jnfyji Hx Patient Social History 2nd Hand Smoke Exposure: No Recent Foreign Travel: No Contact w/Someone Who Travel: No Recent Hopitalizations: Yes (pneumonia 03/2019) Immunizations Up To Date Date of Influenza Vaccine: Feb 06, 2012 Seasonal Allergies Seasonal Allergies: Yes Past Medical History Surgeries: Yes (Appy and hysterectomy ') Appendectomy, Defibrillator, Hysterectomy Respiratory: Yes Sleep Apnea, COPD Currently Using CPAP: Yes (WITH O2) Currently Using BIPAP: No Cardiac: Yes (CHF WITH RECENT MULTIPLE SHOCKS FROM DEFIB) Atrial Fibrillation, Cardiomyopathy, Hypertension Neurological: No Reproductive Disorders: Yes Sexually Transmitted Disease: No HIV/AIDS: No Genitourinary: Yes Renal Failure Gastrointestinal: No Musculoskeletal: No Endocrine: No HEENT: No Loss of Vision: Denies Cancer: No Psychosocial: No Integumentary: No Blood Disorders: No Adverse Reaction/Blood Tranf: No Family Medical History Patient reports no known family medical history. No Pertinent Family Hx Physical Exam Vital Signs Capillary Refill : Height, Weight, BMI Height: 5'5.00" Weight: 243lbs. 0.2oz. [id number]; 39.87 BMI Method:Stated Progress/Results/Core Measures Results/Orders My Orders Orders - TANA SHAW DO Ed Iv/Invasive Line Start (05/07/19 10:47) Ekg Tracing (05/07/19 10:47) O2 (05/07/19 10:47) Monitor-Rhythm Ecg Trace Only (05/07/19 10:47) BNP (05/07/19 10:47) Cbc With Automated Diff (05/07/19 10:47) Comprehensive Metabolic Panel (05/07/19 10:47) Creatine Kinase (05/07/19 10:47) Creatine Kinase Mb (05/07/19 10:47) Magnesium (05/07/19 10:47) Protime With Inr (05/07/19 10:47) Partial Thromboplastin Time (05/07/19 10:47) Thyroid Analyzer (05/07/19 10:47) Myoglobin Serum (05/07/19 10:47) Troponin I (05/07/19 10:47) Chest 1 View, Ap/Pa Only (05/07/19 10:47) Departure Impression Condition: Improved Departure-Patient Inst. Referrals: CAPRI CARCAMO MD (PCP/Family) Primary Care Physician TANA SHAW DO May 07, 2019 10:56
[2019-05-07 11:12] LABS: BASOPHILS % (AUTO) 0 % (0-10); EOSINOPHILS % (AUTO) 0 % (0-10); HEMATOCRIT 33 % (35-52); HEMOGLOBIN 9.7 G/DL (11.5-16.0); LYMPHOCYTES # (AUTO) 0.5 X 10^3 (1.0-4.0); LYMPHOCYTES % (AUTO) 6 % (12-44); MEAN CORPUSCULAR HEMOGLOBIN 29 PG (25-34); MEAN CORPUSCULAR HGB CONC 30 G/DL (32-36); MEAN CORPUSCULAR VOLUME 97 FL (80-99); MEAN PLATELET VOLUME 10.6 FL (7.4-10.4); MONOCYTES # (AUTO) 0.5 X 10^3 (0.0-1.0); MONOCYTES % (AUTO) 6 % (0-12); NEUTROPHILS # (AUTO) 6.8 X 10^3 (1.8-7.8); NEUTROPHILS % (AUTO) 88 % (42-75); PLATELET COUNT 167 10^3/uL (130-400); RED CELL DISTRIBUTION WIDTH 17.6 % (10.0-14.5); WHITE BLOOD COUNT 7.7 10^3/uL (4.3-11.0)
[2019-05-07 11:14] LABS: INR 1.5 (0.8-1.4); PROTHROMBIN TIME PATIENT 18.8 SEC (12.2-14.7)
[2019-05-07 11:24] LABS: ALBUMIN 4.1 GM/DL (3.2-4.5); BILIRUBIN,TOTAL 1.8 MG/DL (0.1-1.0); CALCIUM 9.5 MG/DL (8.5-10.1); CREATININE SERUM 1.72 MG/DL (0.60-1.30); MAGNESIUM 2.2 MG/DL (1.6-2.4); POTASSIUM 3.9 MMOL/L (3.6-5.0); TOTAL PROTEIN 6.8 GM/DL (6.4-8.2)
[2019-05-07 11:40] LABS: ANISOCYTOSIS SLIGHT; BAND NEUTROPHILS 2 %; BASOPHILS % (MANUAL) 0 %; ELLIPT/OVALOCYTES SLIGHT; EOSINOPHILS % (MANUAL) 0 %; LYMPHOCYTES % (MANUAL) 9 %; MONOCYTES % (MANUAL) 3 %; NEUTROPHILS % (MANUAL) 86 %; POLYCHROMASIA SLIGHT
[2019-05-07 11:44] LABS: CREATINE KINASE MB 4.1 NG/ML (<6.6); TSH (THYROID ANALYZER) 1.79 UIU/ML (0.35-4.94)
[2019-05-07] MEDS ORDERED: FUROSEMIDE 40 MG/4 ML INJ (LASIX) IVP ONE (12:00)
[2019-05-07] MEDS ORDERED: NITROGLYCERIN 2% OINT 1 GM UNIT DOSE PACKET TOP ONE (12:00)
--- NOTE | 2019-05-07 12:18 | Diagnostic Imaging Report ---
INDICATION: Shortness of air. Time of exam 11:39 AM Correlation is made with prior chest 04/13/2019. Heart remains enlarged but stable. Cardiac defibrillator remains in place. There is some mild central congestive changes noted but no overt failure is identified. There is no effusion or pneumothorax. IMPRESSION: Cardiomegaly and central congestion. Dictated by: Dictated on workstation # [id number]
[2019-05-07] MEDS ORDERED: meTOprolol SUCCINATE 100 MG (TOPROL XL) TAB PO ONE (12:30)
[2019-05-07] MEDS ORDERED: morphine INJ 4 MG/ML 1 ML (VIAL/SYRINGE) IV PRN (14:15)
[2019-05-07] MEDS ORDERED: CATHETER FLUSH 10 ML SYR IV PRN (14:15)
[2019-05-07] MEDS ORDERED: ONDANSETRON 4 MG/2 ML (SDV) Z0FRAN IV PRN (14:15)
[2019-05-07 16:00] VITALS: BP 109/76
[2019-05-07] MEDS ORDERED: AMIO200T4 PO (16:04)
[2019-05-07] MEDS ORDERED: ASPI-983 PO (16:06)
[2019-05-07] MEDS ORDERED: LORA1TAB59 PO (16:13)
[2019-05-07] MEDS ORDERED: SODI30SP2 NS (16:13)
[2019-05-07] MEDS ORDERED: FURO40TA4 PO (16:13)
[2019-05-07 16:49] VITALS: BP 142/88
[2019-05-07] MEDS ORDERED: FUROSEMIDE 40 MG/4 ML INJ (LASIX) IV NR (18:00)
--- NOTE | 2019-05-07 18:01 | Consultation-Cardiology ---
HPI-Cardiology Cardiology Consultation: Date of Consultation 05/07/19 Date of Admission Attending Physician Jyothi Serrano MD Admitting Physician Carlos Castellano MD Consulting Physician Mervat PRITCHETT MD HPI: Time Seen by a Provider: 15:00 Chief Complaint: Shortness of breath This is a 68-year-old lady who presents with shortness of breath which has been worsening with coughing as well. Lower extremity swelling as well. Near syncope.. She has history of active smoking. History of COPD, congestive heart failure, chronic kidney disease. Negative family history for atrial fibril lation or CAD. She has history of atrial fibrillation. On amiodarone and Eliquis. Elevated BNP. She has mildly positive troponin however coronary angiography done within the last few weeks for is negative. Review of Systems-Cardiology Review of Systems Constitutional: As described under HPI; No As described under HPI, No no symptoms reported, No chills, No fever, No lightheadedness Eyes: No As described under HPI, No no symptoms reported, No blindness, No blurred vision, No contact lenses, No drainage, No decreased acuity, No foreign body sensation, No pain, No vision change Ears/Nose/Throat: No As described under HPI, No no symptoms reported, No chronic hearing loss, No ear discharge, No ear pain, No nasal drainage, No ulcerations Respiratory: No no symptoms reported; As described under HPI; No As described under HPI, No cough; orthopnea; No shortness of breath, No SOB with excertion Cardiovascular: No no symptoms reported; As described under HPI; No As described under HPI; chest pain; No edema, No irregular heart rate, No lightheadedness, No palpitations Gastrointestinal: No no symptoms reported, No As described under HPI, No abdomen distended, No abdominal pain, No blood streaked bowels, No constipation, No diarrhea, No nausea, No vomiting, No stool coloration changes Genitourinary: No As described under HPI, No burning, No dysuria, No discharge, No frequency, No flank pain, No hematuria, No urgency : Yes : No Skin: No rash, No skin related problems, No ulcerations Psychiatric/Neurological: No anxiety, No depression, No seizure, No focal weakness, No syncope Hematologic: No bleeding abnormalities GUR-Yfjrev-Gqddmx Hx Patient Social History Alcohol Use: Denies Use Recreational Drug Use: No Smoking Status: Never a Smoker 2nd Hand Smoke Exposure: No Recent Foreign Travel: No Recent Infectious Disease Expo: No Hospitalization with Isolation: Denies Immunizations Up To Date Date of Influenza Vaccine: Feb 06, 2012 Past Medical History PMH As described under Assessment. Family Medical History Family History: Patient reports no known family medical history. Allergies and Home Medications Allergies Coded Allergies: No Known Drug Allergies (Unverified , 11/03/11) Home Medications Acetaminophen 325 Mg Tablet, 650 MG PO Q6H PRN for PAIN-MILD, (Reported) Albuterol Sulfate 18 Gm Hfa.aer.ad, 2 PUFF INH QID PRN for SHORTNESS OF BREATH, (Reported) Allopurinol 100 Mg Tablet, 100 MG PO DAILY, (Reported) Amiodarone HCl 200 Mg Tablet, 200 MG PO DAILY, (Reported) FILLED 05-02-19 - HAS NOT PICKED UP YET Apixaban 5 Mg Tablet, 5 MG PO BID, (Reported) Aspirin 81 Mg Tablet.dr, 81 MG PO DAILY, (Reported) Calcitriol 0.25 Mcg Capsule, 0.25 MCG PO MoWeFr, (Reported) Cetirizine HCl 10 Mg Tablet, 10 MG PO HS PRN for ALLERGIES, (Reported) Cholecalciferol (Vitamin D3) 2,000 Unit Capsule, 2,000 UNIT PO DAILY, (Reported) Clotrimazole/Betamethasone Dip 15 Gm Cream..g., 1 APPLIC TOP BID PRN for RASH, (Reported) Fluticasone Propionate 16 Gm [place].susp, 1 SPRAY NS HS, (Reported) Fluticasone/Salmeterol 1 Each Blst.w.dev, 1 PUFF IH BID, (Reported) Folic Acid/Mv,Fe,Other Min 1 Each Tablet, 1 TAB PO DAILY, (Reported) Furosemide 40 Mg Tablet, 40 MG PO BID, (Reported) Ipratropium/Albuterol Sulfate 3 Ml Ampul.neb, 3 ML NEB QID PRN for SHORTNESS OF BREATH, (Reported) Loratadine/Pseudoephedrine 1 Each Tab.er.12h, 1 TAB PO BID PRN for CONGESTION, (Reported) Metoprolol Tartrate 50 Mg Tablet, 50 MG PO BID, (Reported) Potassium Chloride 10 Meq Tablet.er, 10 MEQ PO DAILY, (Reported) Sodium Chloride 30 Ml [place], 1-2 SPRAYS NS QID PRN for DRY NOSE, (Reported) Tiotropium [place] 4 Gm Mist.inhal, 2 PUFF INH DAILY, (Reported) Patient Home Medication List Home Medication List Reviewed: Yes Physical Exam-Cardiology Physical Exam Vital Signs/I&O 05/08/19 05/08/19 05/08/19 05/08/19 01:00 01:35 04:00 04:00 Temp 36.2 Pulse 95 103 Resp 18 B/P (MAP) 118/84 (95) Pulse Ox 96 96 96 O2 Delivery Nasal Cannula Nasal Cannula Nasal Cannula O2 Flow Rate 3.00 3.00 3.00 05/08/19 05/08/19 05/08/19 05/08/19 06:17 07:00 08:00 08:00 Temp 36.7 Pulse 109 109 Resp 20 B/P (MAP) 101/67 (78) Pulse Ox 94 96 96 O2 Delivery Nasal Cannula Nasal Cannula Nasal Cannula O2 Flow Rate 3.00 3.00 3.00 05/08/19 05/08/19 05/08/19 05/08/19 09:00 12:00 12:00 12:02 Temp 36.9 Pulse 108 Resp 20 B/P (MAP) 108/73 (85) Pulse Ox 96 96 95 93 O2 Delivery Nasal Cannula Nasal Cannula Nasal Cannula Nasal Cannula O2 Flow Rate 3.00 3.00 3.00 3.00 05/08/19 12:21 Pulse 109 05/08/19 00:00 Intake Total 700 ml Output Total 1900 ml Balance -1200 ml Capillary Refill : Less Than 3 Seconds Constitutional: appears stated age, AAO x 3; No apparent distress; well- developed, well-nourished HEENT: PERRL; No discharge; hearing is well preserved, oral hygience is good; No ulceration, No xanthelasmas are seen Neck: No carotid bruit; carotid pulses are 2 + bilaterally Respiratory: chest is bilaterally symmetric, other (decreased air entry bilaterally.) Cardiovascular: irregularly irregular, S1 and S2 Gastrointestinal: soft, audible bowel sounds; No spleenomegaly Rectal: deferred Extremities: normal range of motion, non-tender, normal inspection, pedal edema; No clubbing, No cyanosis, No significant edema Neurologic/Psychiatric: no motor/sensory deficits, alert, normal mood/affect, oriented x 3, power is 5/5 both on sides Skin: normal color; No rash, No ulcerations Data Review Labs Laboratory Tests 05/07/19 16:06: Glucometer 122H 05/07/19 16:43: Troponin I 0.059H 05/07/19 20:54: Glucometer 128H 05/07/19 23:06: Troponin I 0.064H 05/08/19 03:42: White Blood Count 6.4, Red Blood Count 2.99L, Hemoglobin 8.7L, Hematocrit 29L, Mean Corpuscular Volume 97, Mean Corpuscular Hemoglobin 29, Mean Corpuscular Hemoglobin Concent 30L, Red Cell Distribution Width 17.1H, Platelet Count 135, Mean Platelet Volume 10.8H, Neutrophils (%) (Auto) 81H, Lymphocytes (%) (Auto) 10L, Monocytes (%) (Auto) 7, Eosinophils (%) (Auto) 2, Basophils (%) (Auto) 0, Neutrophils # (Auto) 5.2, Lymphocytes # (Auto) 0.7L, Monocytes # (Auto) 0.5, Eosinophils # (Auto) 0.1, Basophils # (Auto) 0.0, Sodium Level 142, Potassium Level 3.6, Chloride Level 100, Carbon Dioxide Level 30, Anion Gap 12, Blood Urea Nitrogen 32H, Creatinine 1.56H, Estimat Glomerular Filtration Rate 40, BUN/Creatinine Ratio 21, Glucose Level 96, Calcium Level 9.0, Corrected Calcium 9.4, Total Bilirubin 1.5H, Aspartate Amino Transf (AST/SGOT) 23, Alanine Aminotransferase (ALT/SGPT) 42, Alkaline Phosphatase 86, Total Protein 5.9L, Albumin 3.5 ECG Impression ECG Initial ECG Rhythm: S.Tach Initial ECG Impression: Nonspecific Changes A/P-Cardiology Assessment/Admission Diagnosis Acute diastolic congestive heart failure, Chest pain, COPD, Chronic Atrial fibrillation, Chronic kidney disease stage IV, Pulmonary hypertension. Moderate to severe mitral regurgitation. Plan Acute diastolic congestive heart failure, IV Lasix. Chest pain, serial troponin. Borderline positive troponin. Likely type II myocardial infarction due to congestive heart failure. COPD, defer to the primary team. Atrial fibrillation, on amiodarone and Eliquis. Request echocardiogram. Chest discomfort and shortness of breath of unclear etiology, improved Card cath of 04/12/19: normal cors, LVEF 50%, LVEDP 17 mmHg, no significant MR on this study H/O nonischemic cardiomyopathy with an ejection fraction between 30 and 35% on serial echocardiograms previously. Most recent echocardiogram of Mar 24, 2019 shows LVEF 50-55%, LA mild to mod dilated; Mod-severe MR and TR. PASP 60mmHg Chronic systolic and diastolic CHF due to nonischemic cardiomyopathy currently clinically compensated Anemia of undetermined etiology (possibly due to CKD) managed by the [facility] [place] Intolerance to ORAL-inhib / ARB due to worsening renal function Suspected sarcoidosis, followed by Dr Rose. 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 Device functioning normally per interrogation of Feb 2019 Paroxysmal atrial flutter with an intermittent rapid ventricular response. In July 2012, she received one shock ICD for atrial flutter but has not has not received any since. She has not had any syncope or presyncope. Intolerance to digoxin (results in N/V and poor apetite) Chronic LBBB CKD-4, being followed by Dr Huff History of bronchial asthma, managed by Dr Rose Chronic anticoagulation with Eliquis therapy for stroke prophylaxis. MAXIM, treated with CPAP H/o pulm hypertension on echo studies of 2011,2012, 2013, echo studies of 2015 and 2017 had shown PASP approx 30-35 mmHg. Most recent echo of Mar 2019 showed PASP 60mmHg Mild carotid dz per u/s of Mar 2019 Thank you for your consultation. Please call me if you have any questions. Thais Pritchett MD, FACP, FACC, FSCAI, FHRS, CCDS Interventional Cardiology Cardiac Electrophysiology Vascular Medicine and Endovascular Interventions Clinical Quality Measures DVT/VTE Risk/Contraindication: Risk Factor Score Per Nursin RFS Level Per Nursing on Admit: 4+=Very High Mervat PRITCHETT MD May 07, 2019 18:01
[2019-05-07] MEDS: RT-ALBUTEROL/IPRATROPIUM 3 ML (DUONEB) VIAL INH SCH ×2 (18:19→22:39)
[2019-05-07] MEDS: NITROGLYCERIN 2% OINT 1 GM UNIT DOSE PACKET TOP SCH (18:31)
[2019-05-07 20:00] VITALS: BP 100/62
[2019-05-07] MEDS ORDERED: RT-ALBUTEROL/IPRATROPIUM 3 ML (DUONEB) VIAL INH PRN (20:00)
[2019-05-07] MEDS: FLUTICASONE NASAL SPRAY (FLONASE) 16 GM BTL NS SCH ×2 (20:39→21:00)
[2019-05-07] MEDS: APIXABAN 5 MG (ELIQUIS) TABLET PO SCH (20:39)
[2019-05-07] MEDS ORDERED: NON-FORMULARY MEDICATION 1 EA EA (Fluticasone/Salmeterol (Advair 250-50 Diskus) 1 PUFF) IH SCH (21:00)
[2019-05-07] MEDS: RT-ADVAIR HFA 115/21 MCG PER PUFF IH SCH (22:39)
[2019-05-07] MEDS: CATHETER FLUSH 10 ML SYR IV SCH (22:49)
[2019-05-08] VITALS (7 sets, daily range): BP systolic 101–118; BP diastolic 64–84
[2019-05-08] MEDS: NITROGLYCERIN 2% OINT 1 GM UNIT DOSE PACKET TOP SCH ×5 (00:02→23:49)
[2019-05-08] MEDS: RT-ALBUTEROL/IPRATROPIUM 3 ML (DUONEB) VIAL INH SCH ×5 (01:35→18:25)
[2019-05-08 04:07] LABS: BASOPHILS % (AUTO) 0 % (0-10); EOSINOPHILS # (AUTO) 0.1 10^3/uL (0.0-0.3); EOSINOPHILS % (AUTO) 2 % (0-10); HEMATOCRIT 29 % (35-52); HEMOGLOBIN 8.7 G/DL (11.5-16.0); LYMPHOCYTES # (AUTO) 0.7 X 10^3 (1.0-4.0); LYMPHOCYTES % (AUTO) 10 % (12-44); MEAN CORPUSCULAR HEMOGLOBIN 29 PG (25-34); MEAN CORPUSCULAR HGB CONC 30 G/DL (32-36); MEAN CORPUSCULAR VOLUME 97 FL (80-99); MEAN PLATELET VOLUME 10.8 FL (7.4-10.4); MONOCYTES # (AUTO) 0.5 X 10^3 (0.0-1.0); MONOCYTES % (AUTO) 7 % (0-12); NEUTROPHILS # (AUTO) 5.2 X 10^3 (1.8-7.8); NEUTROPHILS % (AUTO) 81 % (42-75); PLATELET COUNT 135 10^3/uL (130-400); RED CELL DISTRIBUTION WIDTH 17.1 % (10.0-14.5); WHITE BLOOD COUNT 6.4 10^3/uL (4.3-11.0)
[2019-05-08 04:28] LABS: ALBUMIN 3.5 GM/DL (3.2-4.5); BILIRUBIN,TOTAL 1.5 MG/DL (0.1-1.0); CREATININE SERUM 1.56 MG/DL (0.60-1.30); POTASSIUM 3.6 MMOL/L (3.6-5.0); TOTAL PROTEIN 5.9 GM/DL (6.4-8.2)
[2019-05-08] MEDS: CATHETER FLUSH 10 ML SYR IV SCH ×3 (06:11→20:18)
[2019-05-08] MEDS: RT-ADVAIR HFA 115/21 MCG PER PUFF IH SCH ×2 (06:20→18:25)
[2019-05-08] MEDS: UMECLIDINIUM BROMIDE (INCRUSE ELLIPTA) 7'S IH SCH (06:20)
--- NOTE | 2019-05-08 06:35 | History & Physical-Hospitalist ---
History of Present Illness HPI/Chief Complaint Malathi Hurley is a 68-year-old female with past medical history of heart failure, chronic kidney disease, COPD, atrial fibrillation, who presented with shortness of breath. She reports that she has had worsening shortness of breath and cough. She has noticed that her shoes been fitting more tightly. She was walking around her car and had a near syncopal episode with her son present. Immediately following the event she felt better. She denies any fevers or chills. She denies any chest pain. She says that she has been compliant with a low-salt diet. She has been taking her diuretics. She does not have a scale and does not weigh herself daily. Source: patient, family Exam Limitations: no limitations Date Seen 05/07/19 Time Seen by a Provider: 18:00 Attending Physician Jyothi Tony MD PCP Carlos Castellano MD Referring Physician Date of Admission May 07, 2019 at 12:55 Home Medications & Allergies Home Medications Reviewed patient Home Medication Reconciliation performed by pharmacy medication reconciliations survey and mapping technician and/or nursing. Patients Allergies have been reviewed. Allergies Allergies Coded Allergies No Known Drug Allergies (Unverified11/03/11) Past Cnkuval-Syiesf-Wujyfh Hx Past Med/Social Hx: Reviewed Nursing Past Med/Soc Hx Patient Social History Alcohol Use: Denies Use Recreational Drug Use: No Smoking Status: Never a Smoker 2nd Hand Smoke Exposure: No Recent Foreign Travel: No Contact w/other who traveled: No Recent Hopitalizations: Yes (pneumonia 03/2019) Recent Infectious Disease Expo: No Immunizations Up To Date Date of Influenza Vaccine: Feb 06, 2012 Seasonal Allergies Seasonal Allergies: Yes Past Medical History Surgeries: Appendectomy, Defibrillator, Hysterectomy Respiratory: COPD, Pneumonia, Sleep Apnea Sarcoidosis Currently Using CPAP: Yes (WITH O2) Currently Using BIPAP: No Cardiac: Atrial Fibrillation, Cardiomyopathy, Hypertension PHTN Reproductive: Yes Sexually Transmitted Disease: No HIV/AIDS: No Genitourinary: Renal Failure Loss of Vision: Denies History of Blood Disorders: No Adverse Reaction to Blood [place]: No Family History Patient reports no known family medical history. No Pertinent Family Hx Review of Systems Constitutional: no symptoms reported, see HPI EENTM: nose congestion Respiratory: cough, short of breath Cardiovascular: no symptoms reported Gastrointestinal: no symptoms reported Genitourinary: no symptoms reported Musculoskeletal: no symptoms reported Skin: no symptoms reported Psychiatric/Neurological: No Symptoms Reported Physical Exam Physical Exam Vital Signs Vital Signs - First Documented 05/07/19 05/07/19 10:38 16:49 Temp 36.8 Pulse 111 Resp 20 B/P (MAP) 142/88 (106) Pulse Ox 98 O2 Delivery Nasal Cannula O2 Flow Rate 3.00 FiO2 32 Capillary Refill : Less Than 3 Seconds Height, Weight, BMI Height: 5'5.00" Weight: 243lbs. 0.2oz. 97.732239fd; 40.00 BMI Method:Stated General Appearance: No Apparent Distress, WD/WN, Obese HEENT: PERRL/EOMI, Pharynx Normal Neck: Normal Inspection, Non Tender, Supple Respiratory: Chest Non Tender, No Respiratory Distress, Crackles, Decreased Breath Sounds Cardiovascular: Regular Rate, Rhythm, No Murmur Gastrointestinal: Normal Bowel Sounds, Non Tender, Soft Extremity: Normal Inspection, Non Tender, Pedal Edema, Swelling Neurologic/Psychiatric: Alert, Oriented x3, No Motor/Sensory Deficits, Normal Mood/Affect Skin: Normal Color, Warm/Dry Lymphatic: No Adenopathy Results Results/Procedures Labs Laboratory Tests 05/07/19 10:55 05/08/19 03:42 Patient resulted labs reviewed. Imaging: Reviewed Imaging Report Assessment/Plan Admission Diagnosis acute on chronic heart failure with preserved ejection fraction Admission Status: Inpatient Order (span 2 midnights) Reason for Inpatient Admission: heart failure requiring IV diuresis Assessment and Plan Acute on chronic heart failure with preserved ejection fraction Acute on chronic respiratory failure with hypoxemia clinically hypervolemic on arrival BNP elevated at 1100 Chest x-ray with cardiomegaly and central venous congestion Started on IV Lasix Monitor intake and output and daily weights Low-sodium diet Cardiology consulted, appreciate assistance Elevated troponin Minimal elevation Likely due to chronic heart failure and kidney disease Cardiology following Acute kidney injury superimposed on chronic kidney disease Baseline appears to be around 1.4 Creatinine increased at 1.72 on arrival IV diuresis Paroxysmal atrial fibrillation Continue metoprolol, amiodarone, and Eliquis COPD without acute exacerbation Continue home meds Morbid obesity Clinically significant, in no acute management needs Diagnosis/Problems Diagnosis/Problems (1) Acute on chronic heart failure with preserved ejection fraction Status: Acute (2) Acute and chronic respiratory failure with hypoxia Status: Acute (3) Acute kidney injury superimposed on chronic kidney disease Status: Acute (4) Paroxysmal atrial flutter Status: Chronic (5) COPD without exacerbation Status: Chronic Clinical Quality Measures DVT/VTE Risk/Contraindication: Risk Factor Score Per Nursin RFS Level Per Nursing on Admit: 4+=Very High JYOTHI TONY MD May 08, 2019 06:35
--- NOTE | 2019-05-08 08:35 | Diagnostic Imaging Report ---
INDICATION: CHF. TIME OF EXAM: 01:48 a.m. Correlation is made with prior chest from one day earlier. FINDINGS: Cardiac defibrillator remains in place. Heart is enlarged. Congestive changes have worsened since yesterday's exam. There are bilateral perihilar and bibasilar infiltrates. No significant effusion or pneumothorax is seen. IMPRESSION: Worsening congestive changes when compared with exam one day earlier. Dictated by: Dictated on workstation # [id number]
[2019-05-08] MEDS: meTOprolol TARTRATE 50 MG (LOPRESSOR) TAB PO SCH ×2 (08:55→20:17)
[2019-05-08] MEDS: APIXABAN 5 MG (ELIQUIS) TABLET PO SCH ×2 (08:55→20:17)
[2019-05-08] MEDS: LORATADINE (CLARITIN) 10 MG TAB PO SCH (08:55)
[2019-05-08] MEDS: AMIODARONE 200 MG (CORDARONE) TAB PO SCH (08:55)
[2019-05-08] MEDS: ASPIRIN E.C. 81 MG (ECOTRIN) TAB PO SCH (08:55)
[2019-05-08] MEDS ORDERED: FLUTICASONE NASAL SPRAY (FLONASE) 16 GM BTL NS SCH (09:00)
[2019-05-08] MEDS ORDERED: ACETAMINOPHEN 500 MG TAB (TYLENOL) PO PRN (09:00)
[2019-05-08] MEDS ORDERED: NON-FORMULARY MEDICATION 1 EA EA (Tiotropium Bromide (Spiriva Respimat 2.5MCG/ACTUATION) 2 INH SCH (09:00)
[2019-05-08] MEDS: FUROSEMIDE 40 MG/4 ML INJ (LASIX) IVP SCH ×2 (09:03→17:01)
--- NOTE | 2019-05-08 11:39 | Progress Note - Hospitalist ---
Subjective HPI/CC On Admission Date Seen by Provider: May 08, 2019 Time Seen by Provider: 08:30 Malathi Hurley is a 68-year-old female with past medical history of heart failure, chronic kidney disease, COPD, atrial fibrillation, who presented with shortness of breath. She reports that she has had worsening shortness of breath and cough. She has noticed that her shoes been fitting more tightly. She was walking around her car and had a near syncopal episode with her son present. Immediately following the event she felt better. She denies any fevers or chills. She denies any chest pain. She says that she has been compliant with a low-salt diet. She has been taking her diuretics. She does not have a scale and does not weigh herself daily. Subjective/Events-last exam she feels about the same this morning. She is still having nasal congestion. She reports having a bloody nose. She asks many questions about her chronic medical conditions and they were all answered to the best of my ability. She denies any fevers or chills. She reports shortness of breath. She denies chest pain. She denies abdominal pain, nausea, or vomiting. Objective Exam Vital Signs Vital Signs Date Time Temp Pulse Resp B/P (MAP) Pulse Ox O2 Delivery O2 Flow Rate FiO2 05/08/19 08:00 36.7 109 20 101/67 (78) 96 Nasal Cannula 3.00 05/07/19 16:49 32 Capillary Refill : Less Than 3 Seconds General Appearance: No Apparent Distress, WD/WN, Obese HEENT: PERRL/EOMI, Pharynx Normal Neck: Normal Inspection, Supple Respiratory: No Respiratory Distress, Decreased Breath Sounds Cardiovascular: Regular Rate, Rhythm, No Edema, No Murmur Gastrointestinal: Normal Bowel Sounds, Non Tender, Soft Extremity: Normal Inspection, Non Tender, Pedal Edema Neurologic/Psychiatric: Alert, Oriented x3, No Motor/Sensory Deficits, Normal Mood/Affect Skin: Normal Color, Warm/Dry Lymphatic: No Adenopathy Results/Procedures Lab Laboratory Tests 05/08/19 03:42 Patient resulted labs reviewed. Imaging: Reviewed Imaging Report Assessment/Plan Assessment and Plan Assess & Plan/Chief Complaint Acute on chronic heart failure with preserved ejection fraction Acute on chronic respiratory failure with hypoxemia continue Lasix Cardiology following, appreciate assistance Elevated troponin Minimal elevation Likely due to chronic heart failure and kidney disease Cardiology following Acute kidney injury superimposed on chronic kidney disease Baseline appears to be around 1.4 Creatinine increased at 1.72 on arrival, improved to 1.56 this morning continue IV diuresis Paroxysmal atrial fibrillation Continue metoprolol, amiodarone, and Eliquis COPD without acute exacerbation Continue home meds Morbid obesity Clinically significant, in no acute management needs Diagnosis/Problems Diagnosis/Problems (1) Acute on chronic heart failure with preserved ejection fraction Status: Acute (2) Acute and chronic respiratory failure with hypoxia Status: Acute (3) Acute kidney injury superimposed on chronic kidney disease Status: Acute (4) Paroxysmal atrial flutter Status: Chronic (5) COPD without exacerbation Status: Chronic Clinical Quality Measures DVT/VTE Risk/Contraindication: Risk Factor Score Per Nursin RFS Level Per Nursing on Admit: 4+=Very High STEFFI TONY MD May 08, 2019 11:39
--- NOTE | 2019-05-08 12:45 | Cardiology Progress Note ---
Cardiology SOAP Progress Note Subjective: Slightly improved shortness of breath Objective: I&O/Vital Signs 05/08/19 05/08/19 05/08/19 05/08/19 01:00 01:35 04:00 04:00 Temp 36.2 Pulse 95 103 Resp 18 B/P (MAP) 118/84 (95) Pulse Ox 96 96 96 O2 Delivery Nasal Cannula Nasal Cannula Nasal Cannula O2 Flow Rate 3.00 3.00 3.00 05/08/19 05/08/19 05/08/19 05/08/19 06:17 07:00 08:00 08:00 Temp 36.7 Pulse 109 109 Resp 20 B/P (MAP) 101/67 (78) Pulse Ox 94 96 96 O2 Delivery Nasal Cannula Nasal Cannula Nasal Cannula O2 Flow Rate 3.00 3.00 3.00 05/08/19 05/08/19 05/08/19 05/08/19 09:00 12:00 12:00 12:02 Temp 36.9 Pulse 108 Resp 20 B/P (MAP) 108/73 (85) Pulse Ox 96 96 95 93 O2 Delivery Nasal Cannula Nasal Cannula Nasal Cannula Nasal Cannula O2 Flow Rate 3.00 3.00 3.00 3.00 05/08/19 12:21 Pulse 109 05/08/19 00:00 Intake Total 700 ml Output Total 1900 ml Balance -1200 ml Weight (Pounds): 243 Weight (Ounces): 0.2 Weight (Calculated Kilograms): 97.113763 Constitutional: appears stated age, AAO x 3; No apparent distress; well- developed, well-nourished Respiratory: chest is bilaterally symmetric, other (decreased air entry bilaterally.) Cardiovascular: irregularly irregular, S1 and S2 Gastrointestional: soft, audible bowel sounds; No spleenomegaly Extremities: normal range of motion, non-tender, normal inspection, pedal edema; No clubbing, No cyanosis, No significant edema Neurologic/Psychiatric: no motor/sensory deficits, alert, normal mood/affect, oriented x 3, power is 5/5 both on sides Skin: normal color; No rash, No ulcerations Results/Procedures: Labs Laboratory Tests 05/07/19 16:06: Glucometer 122H 05/07/19 16:43: Troponin I 0.059H 05/07/19 20:54: Glucometer 128H 05/07/19 23:06: Troponin I 0.064H 05/08/19 03:42: White Blood Count 6.4, Red Blood Count 2.99L, Hemoglobin 8.7L, Hematocrit 29L, Mean Corpuscular Volume 97, Mean Corpuscular Hemoglobin 29, Mean Corpuscular Hemoglobin Concent 30L, Red Cell Distribution Width 17.1H, Platelet Count 135, Mean Platelet Volume 10.8H, Neutrophils (%) (Auto) 81H, Lymphocytes (%) (Auto) 10L, Monocytes (%) (Auto) 7, Eosinophils (%) (Auto) 2, Basophils (%) (Auto) 0, Neutrophils # (Auto) 5.2, Lymphocytes # (Auto) 0.7L, Monocytes # (Auto) 0.5, Eosinophils # (Auto) 0.1, Basophils # (Auto) 0.0, Sodium Level 142, Potassium Level 3.6, Chloride Level 100, Carbon Dioxide Level 30, Anion Gap 12, Blood Urea Nitrogen 32H, Creatinine 1.56H, Estimat Glomerular Filtration Rate 40, BUN/Creatinine Ratio 21, Glucose Level 96, Calcium Level 9.0, Corrected Calcium 9.4, Total Bilirubin 1.5H, Aspartate Amino Transf (AST/SGOT) 23, Alanine Aminotransferase (ALT/SGPT) 42, Alkaline Phosphatase 86, Total Protein 5.9L, Albumin 3.5 A/P: Assessment/Dx: Acute diastolic congestive heart failure, Chest pain, COPD, Chronic Atrial fibrillation, Chronic kidney disease stage IV, Pulmonary hypertension. Moderate to severe mitral regurgitation. Plan: Acute diastolic congestive heart failure, IV Lasix. Chest pain, serial troponin. Borderline positive troponin. Likely type II myocardial infarction due to congestive heart failure. COPD, defer to the primary team. Atrial fibrillation, on amiodarone and Eliquis. Request echocardiogram. Chest discomfort and shortness of breath of unclear etiology, improved Card cath of 04/12/19: normal cors, LVEF 50%, LVEDP 17 mmHg, no significant MR on this study H/O nonischemic cardiomyopathy with an ejection fraction between 30 and 35% on serial echocardiograms previously. Most recent echocardiogram of Mar 24, 2019 shows LVEF 50-55%, LA mild to mod dilated; Mod-severe MR and TR. PASP 60mmHg Chronic systolic and diastolic CHF due to nonischemic cardiomyopathy currently clinically compensated Anemia of undetermined etiology (possibly due to CKD) managed [place] [facility] [place] Intolerance to ORAL-inhib / ARB due to worsening renal function Suspected sarcoidosis, followed by Dr Rose. 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 Device functioning normally per interrogation of Feb 2019 Paroxysmal atrial flutter with an intermittent rapid ventricular response. In July 2012, she received one shock ICD for atrial flutter but has not has not received any since. She has not had any syncope or presyncope. Intolerance to digoxin (results in N/V and poor apetite) Chronic LBBB CKD-4, being followed by Dr Huff History of bronchial asthma, managed by Dr Rose Chronic anticoagulation with Eliquis therapy for stroke prophylaxis. MAXIM, treated with CPAP H/o pulm hypertension on echo studies of 2011,2012, 2013, echo studies of 2015 and 2017 had shown PASP approx 30-35 mmHg. Most recent echo of Mar 2019 showed PASP 60mmHg Mild carotid dz per u/s of Mar 2019 Thank you for your consultation. Please call me if you have any questions. Thais Pritchett MD, FACP, FACC, FSCAI, FHRS, CCDS Interventional Cardiology Cardiac Electrophysiology Vascular Medicine and Endovascular Interventions Mervat PRITCHETT MD May 08, 2019 12:45
[2019-05-09] MEDS: RT-ALBUTEROL/IPRATROPIUM 3 ML (DUONEB) VIAL INH SCH ×7 (02:38→23:02)
[2019-05-09 04:00] VITALS: BP 110/78
[2019-05-09] MEDS: FUROSEMIDE 40 MG/4 ML INJ (LASIX) IVP SCH ×2 (05:19→14:16)
[2019-05-09] MEDS: CATHETER FLUSH 10 ML SYR IV SCH ×3 (05:20→19:22)
[2019-05-09] MEDS: NITROGLYCERIN 2% OINT 1 GM UNIT DOSE PACKET TOP SCH ×3 (05:20→18:29)
[2019-05-09 06:43] LABS: BASOPHILS % (AUTO) 0 % (0-10); EOSINOPHILS # (AUTO) 0.1 10^3/uL (0.0-0.3); EOSINOPHILS % (AUTO) 2 % (0-10); HEMATOCRIT 30 % (35-52); LYMPHOCYTES # (AUTO) 0.6 X 10^3 (1.0-4.0); LYMPHOCYTES % (AUTO) 10 % (12-44); MEAN CORPUSCULAR HEMOGLOBIN 29 PG (25-34); MEAN CORPUSCULAR HGB CONC 30 G/DL (32-36); MEAN CORPUSCULAR VOLUME 96 FL (80-99); MEAN PLATELET VOLUME 10.6 FL (7.4-10.4); MONOCYTES # (AUTO) 0.5 X 10^3 (0.0-1.0); MONOCYTES % (AUTO) 9 % (0-12); NEUTROPHILS # (AUTO) 4.7 X 10^3 (1.8-7.8); NEUTROPHILS % (AUTO) 79 % (42-75); PLATELET COUNT 132 10^3/uL (130-400); RED CELL DISTRIBUTION WIDTH 17.2 % (10.0-14.5)
[2019-05-09] MEDS: RT-ADVAIR HFA 115/21 MCG PER PUFF IH SCH ×2 (06:52→22:44)
[2019-05-09] MEDS: UMECLIDINIUM BROMIDE (INCRUSE ELLIPTA) 7'S IH SCH (06:55)
[2019-05-09 06:58] LABS: CALCIUM 8.8 MG/DL (8.5-10.1); CREATININE SERUM 1.6 MG/DL (0.60-1.30); POTASSIUM 3.5 MMOL/L (3.6-5.0)
[2019-05-09 07:34] VITALS: BP 125/77
[2019-05-09] MEDS ORDERED: KCL 20 MEQ TAB (K-DUR) PO ONE (07:45)
[2019-05-09] MEDS ORDERED: FUROSEMIDE 40 MG/4 ML INJ (LASIX) IVP ONE (07:45)
[2019-05-09] MEDS: AMIODARONE 200 MG (CORDARONE) TAB PO SCH (07:55)
[2019-05-09] MEDS: APIXABAN 5 MG (ELIQUIS) TABLET PO SCH ×2 (07:55→19:22)
[2019-05-09] MEDS: ASPIRIN E.C. 81 MG (ECOTRIN) TAB PO SCH (07:55)
[2019-05-09] MEDS: LORATADINE (CLARITIN) 10 MG TAB PO SCH (07:55)
[2019-05-09] MEDS: meTOprolol TARTRATE 50 MG (LOPRESSOR) TAB PO SCH ×2 (07:55→19:22)
--- NOTE | 2019-05-09 09:20 | Progress Note - Hospitalist ---
Subjective HPI/CC On Admission Date Seen by Provider: May 09, 2019 Time Seen by Provider: 07:50 Malathi Hurley is a 68-year-old female with past medical history of heart failure, chronic kidney disease, COPD, atrial fibrillation, who presented with shortness of breath. She reports that she has had worsening shortness of breath and cough. She has noticed that her shoes been fitting more tightly. She was walking around her car and had a near syncopal episode with her son present. Immediately following the event she felt better. She denies any fevers or chills. She denies any chest pain. She says that she has been compliant with a low-salt diet. She has been taking her diuretics. She does not have a scale and does not weigh herself daily. Subjective/Events-last exam She reports feeling a bit better this morning. She reports that she noticed the swelling in her feet yesterday evening but it is better this morning. She reports that her congestion is improved. She thinks her shortness of breath is improved. She denies any fevers or chills. Objective Exam Vital Signs Vital Signs Date Time Temp Pulse Resp B/P (MAP) Pulse Ox O2 Delivery O2 Flow Rate FiO2 05/09/19 07:34 36.8 98 18 125/77 (93) 96 05/09/19 07:31 Nasal Cannula 3.00 05/07/19 16:49 32 Capillary Refill : Less Than 3 SecondsLess Than 3 Seconds General Appearance: No Apparent Distress, WD/WN, Obese HEENT: PERRL/EOMI, Pharynx Normal Neck: Normal Inspection, Supple Respiratory: Lungs Clear, Normal Breath Sounds, No Respiratory Distress Cardiovascular: Regular Rate, Rhythm, No Edema, No Murmur Gastrointestinal: Normal Bowel Sounds, Non Tender, Soft Extremity: Normal Inspection, Non Tender, Pedal Edema, Swelling Neurologic/Psychiatric: Alert, Oriented x3, No Motor/Sensory Deficits, Normal Mood/Affect Skin: Normal Color, Warm/Dry Lymphatic: No Adenopathy Results/Procedures Lab Laboratory Tests 05/09/19 06:25 Patient resulted labs reviewed. Imaging: Reviewed Imaging Report Assessment/Plan Assessment and Plan Assess & Plan/Chief Complaint Acute on chronic heart failure with preserved ejection fraction Acute on chronic respiratory failure with hypoxemia continue Lasix, increased dose this morning Cardiology following, appreciate assistance Oxygen requirement at her baseline, 3 L Acute kidney injury superimposed on chronic kidney disease Creatinine stable, 1.6 continue IV diuresis Elevated troponin Minimal elevation Likely due to chronic heart failure and kidney disease Cardiology following Paroxysmal atrial fibrillation Continue metoprolol, amiodarone, and Eliquis COPD without acute exacerbation Continue home meds Morbid obesity Clinically significant, in no acute management needs Diagnosis/Problems Diagnosis/Problems (1) Acute on chronic heart failure with preserved ejection fraction Status: Acute (2) Acute and chronic respiratory failure with hypoxia Status: Acute (3) Acute kidney injury superimposed on chronic kidney disease Status: Acute (4) Paroxysmal atrial flutter Status: Chronic (5) COPD without exacerbation Status: Chronic Clinical Quality Measures DVT/VTE Risk/Contraindication: Risk Factor Score Per Nursin RFS Level Per Nursing on Admit: 4+=Very High STEFFI TONY MD May 09, 2019 09:20
[2019-05-09 11:58] VITALS: BP 109/73
--- NOTE | 2019-05-09 14:50 | Cardiology Progress Note ---
Cardiology SOAP Progress Note Subjective: Some improvement in shortness of breath. Objective: I&O/Vital Signs 05/09/19 05/09/19 05/09/19 05/09/19 02:58 04:00 04:00 06:55 Temp 36.8 Pulse 102 Resp 18 B/P (MAP) 110/78 (89) Pulse Ox 94 98 94 96 O2 Delivery Nasal Cannula Nasal Cannula Nasal Cannula Nasal Cannula O2 Flow Rate 3.00 3.00 3.00 3.00 05/09/19 05/09/19 05/09/19 05/09/19 07:00 07:31 07:34 09:00 Temp 36.8 Pulse 104 98 Resp 18 B/P (MAP) 125/77 (93) Pulse Ox 94 96 96 O2 Delivery Nasal Cannula Nasal Cannula O2 Flow Rate 3.00 3.00 05/09/19 05/09/19 05/09/19 05/09/19 09:57 11:58 12:00 12:05 Temp 36.6 Pulse 99 104 Resp 20 B/P (MAP) 109/73 (85) Pulse Ox 96 97 100 O2 Delivery Nasal Cannula Nasal Cannula Nasal Cannula O2 Flow Rate 3.00 3.00 3.00 05/09/19 14:15 Pulse Ox 95 O2 Delivery Nasal Cannula O2 Flow Rate 3.00 05/09/19 00:00 Intake Total 1400 ml Output Total 650 ml Balance 750 ml Weight (Pounds): 243 Weight (Ounces): 0.2 Weight (Calculated Kilograms): 97.003241 Constitutional: appears stated age, AAO x 3; No apparent distress; well- developed, well-nourished Respiratory: chest is bilaterally symmetric, other (decreased air entry bilaterally.) Cardiovascular: irregularly irregular, S1 and S2 Gastrointestional: soft, audible bowel sounds; No spleenomegaly Extremities: normal range of motion, non-tender, normal inspection, pedal edema; No clubbing, No cyanosis, No significant edema Neurologic/Psychiatric: no motor/sensory deficits, alert, normal mood/affect, oriented x 3, power is 5/5 both on sides Skin: normal color; No rash, No ulcerations Results/Procedures: Labs Laboratory Tests 05/09/19 06:25: White Blood Count 6.0, Red Blood Count 3.13L, Hemoglobin 9.0L, Hematocrit 30L, Mean Corpuscular Volume 96, Mean Corpuscular Hemoglobin 29, Mean Corpuscular Hemoglobin Concent 30L, Red Cell Distribution Width 17.2H, Platelet Count 132, Mean Platelet Volume 10.6H, Neutrophils (%) (Auto) 79H, Lymphocytes (%) (Auto) 10L, Monocytes (%) (Auto) 9, Eosinophils (%) (Auto) 2, Basophils (%) (Auto) 0, Neutrophils # (Auto) 4.7, Lymphocytes # (Auto) 0.6L, Monocytes # (Auto) 0.5, Eosinophils # (Auto) 0.1, Basophils # (Auto) 0.0, Sodium Level 141, Potassium Level 3.5L, Chloride Level 98, Carbon Dioxide Level 28, Anion Gap 15H, Blood Urea Nitrogen 33H, Creatinine 1.60H, Estimat Glomerular Filtration Rate 39, BUN/Creatinine Ratio 21, Glucose Level 110H, Calcium Level 8.8 A/P: Assessment/Dx: Acute diastolic congestive heart failure, Chest pain, COPD, Chronic Atrial fibrillation, Chronic kidney disease stage IV, Pulmonary hypertension. Moderate to severe mitral regurgitation. Plan: Acute diastolic congestive heart failure, IV Lasix. Chest pain, serial troponin. Borderline positive troponin. Likely type II myocardial infarction due to congestive heart failure. COPD, defer to the primary team. Atrial fibrillation, on amiodarone and Eliquis. Request echocardiogram. Chest discomfort and shortness of breath of unclear etiology, improved Card cath of 04/12/19: normal cors, LVEF 50%, LVEDP 17 mmHg, no significant MR on this study H/O nonischemic cardiomyopathy with an ejection fraction between 30 and 35% on serial echocardiograms previously. Most recent echocardiogram of Mar 24, 2019 shows LVEF 50-55%, LA mild to mod dilated; Mod-severe MR and TR. PASP 60mmHg Chronic systolic and diastolic CHF due to nonischemic cardiomyopathy currently clinically compensated Anemia of undetermined etiology (possibly due to CKD) [place] [facility] [place] Intolerance to ORAL-inhib / ARB due to worsening renal function Suspected sarcoidosis, followed by Dr Rose. 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 Device functioning normally per interrogation of Feb 2019 Paroxysmal atrial flutter with an intermittent rapid ventricular response. In July 2012, she received one shock ICD for atrial flutter but has not has not received any since. She has not had any syncope or presyncope. Intolerance to digoxin (results in N/V and poor apetite) Chronic LBBB CKD-4, being followed by Dr Huff History of bronchial asthma, managed by Dr Rose Chronic anticoagulation with Eliquis therapy for stroke prophylaxis. MAXIM, treated with CPAP H/o pulm hypertension on echo studies of 2011,2012, 2013, echo studies of 2015 and 2017 had shown PASP approx 30-35 mmHg. Most recent echo of Mar 2019 showed PASP 60mmHg Mild carotid dz per u/s of Mar 2019 Thank you for your consultation. Please call me if you have any questions. Thais Pritchett MD, FACP, FACC, FSCAI, FHRS, CCDS Interventional Cardiology Cardiac Electrophysiology Vascular Medicine and Endovascular Interventions Mervat PRITCHETT MD May 09, 2019 14:50
[2019-05-09] MEDS ORDERED: SALINE NASAL SPRAY (OCEAN) 45 ML BTL PRN (15:45)
[2019-05-09 15:48] LABS: BILIRUBIN,URINE NEGATIVE (NEGATIVE); CLARITY,URINE SL CLOUDY; COLOR,URINE YELLOW; GLUCOSE, URINE (UA) NEGATIVE (NEGATIVE); KETONES,URINE NEGATIVE (NEGATIVE); LEUKOCYTE ESTERASE ,URINE 1+ (NEGATIVE); NITRITE,URINE NEGATIVE (NEGATIVE); PH,URINE 6.5 (5-9); PROTEIN,URINE NEGATIVE (NEGATIVE)
[2019-05-09 15:57] LABS: BACTERIA,URINE LARGE /HPF; SQUAMOUS EPITHELIAL CELL,UR 0-2 /HPF
[2019-05-09 16:00] VITALS: BP 104/62
[2019-05-09 19:21] VITALS: BP 99/63
[2019-05-09] MEDS ORDERED: guaiFENesin/DM (ROBITUSSIN DM) 10 ML UDC PO PRN (19:30)
[2019-05-09] MEDS: FLUTICASONE NASAL SPRAY (FLONASE) 16 GM BTL NS SCH (20:25)
[2019-05-10] VITALS: BP 114/63
[2019-05-10] MEDS: NITROGLYCERIN 2% OINT 1 GM UNIT DOSE PACKET TOP SCH ×3 (00:05→13:24)
[2019-05-10] MEDS: RT-ALBUTEROL/IPRATROPIUM 3 ML (DUONEB) VIAL INH SCH ×4 (00:59→14:58)
[2019-05-10 04:00] VITALS: BP 100/70
[2019-05-10] MEDS: FUROSEMIDE 40 MG/4 ML INJ (LASIX) IVP SCH (05:17)
[2019-05-10] MEDS: CATHETER FLUSH 10 ML SYR IV SCH ×2 (05:17→14:04)
[2019-05-10] MEDS: UMECLIDINIUM BROMIDE (INCRUSE ELLIPTA) 7'S IH SCH (07:35)
[2019-05-10] MEDS: RT-ADVAIR HFA 115/21 MCG PER PUFF IH SCH (07:35)
[2019-05-10 08:00] VITALS: BP 106/72
[2019-05-10] MEDS: LORATADINE (CLARITIN) 10 MG TAB PO SCH (08:00)
[2019-05-10] MEDS: ASPIRIN E.C. 81 MG (ECOTRIN) TAB PO SCH (08:00)
[2019-05-10] MEDS: meTOprolol TARTRATE 50 MG (LOPRESSOR) TAB PO SCH (08:00)
[2019-05-10] MEDS: AMIODARONE 200 MG (CORDARONE) TAB PO SCH (08:00)
[2019-05-10] MEDS: APIXABAN 5 MG (ELIQUIS) TABLET PO SCH (08:00)
--- NOTE | 2019-05-10 10:33 | Physical Therapy Evaluation ---
PT Evaluation-General Medical Diagnosis Admission Date May 07, 2019 at 12:55 Medical Diagnosis: CHF/elevated troponin/COPD Onset Date: May 07, 2019 Therapy Diagnosis Therapy Diagnosis: debility Height/Weight Height (Feet): 5 Height (Inches): 5.00 Weight (Pounds): 243 Weight (Ounces): 0.2 Precautions Precautions/Isolations: Standard Precautions Weight Bear Status Right Lower Extremity: Right Weight Bearing/Tolerated Left Lower Extremity: Left Weight Bearing/Tolerated Referral Physician: Maggie Reason for Referral: Evaluation/Treatment Medical History Pertinent Medical History: Atrial Fib, COPD, HTN Current History ER with SOA and weakness Reviewed History: Yes Social History Current Living Status: Spouse Prior Prior Level of Function SCALE: Activities may be completed with or without assistive devices. 5-Qmkdtmdbhz-bqawoud completes the activity by him/herself with no assistance from a helper. 5-Set-up or Clean-up Assistance-helper sets up or cleans up; patient completes activity. [place] assists only prior to or following the activity. 4-Supervision or Touching Assistance-helper provides verbal cues and/or touching/steadying and/or contact guard assistance as patient completes activity. Assistance may be provided throughout the activity or intermittently. 3-Partial/Moderate Assistance-helper does LESS THAN HALF the effort. [place] lifts, holds or supports trunk or limbs, but provides less than half the effort. 2-Substantial/Maximal Assistance-helper does MORE THAN HALF the effort. [place] lifts or holds trunk or limbs and provides more than half the effort. 6-Htqvuulke-utqzjg does ALL the effort. Patient does none of the effort to complete the activity. Or, the assistance of 2 or more helpers is required for the patient to complete the activity. If activity was not attempted, code reason: 7-Patient Refused. 9-Not Applicable-not attempted and the patient did not perform the activity before the current illness, exacerbation or injury. 10-Not Attempted due to Environmental Limitations-(lack of equipment, weather restraints, etc.). 88-Not Attempted due to Medical Conditions or Safety Concerns. Bed Mobility: 6 Transfers (B,C,W/C): 6 Gait: 6 Indoor Mobility (Ambulation): Independent PT Evaluation-Current Subjective Patient agrees to PT. Pain Numeric Pain Scale: 0-No Pain Location: No Pain Reported Objective Patient Orientation: Normal For Age Attachments: Oxygen ROM/Strength ROM Lower Extremities bilateral LE WFL Strength Lower Extremities 4-/5 grossly bilateral LE Integumentary/Posture Integumentary refer to nursing notes Bowel Incontinence: No Bladder Incontinence: No Posture WFL Neuromuscular (Tone, Coordination, Reflexes) grossly intact Sensory Vision: Functional Hearing: Functional Sensation Right Lower Extremit: Intact Sensation Left Lower Extremity: Intact Transfers Roll Left to Right (QC): 6 Sit to Lying (QC): 6 Lying to Sitting/Side of Bed(Q: 6 Sit to Stand (QC): 6 Chair/Rld-pd-Pxpao Xfer(QC): 6 Gait Does the Patient Walk?: Yes Mode of Locomotion: Walk Anticipated Mode of Locomotion: Walk Walk 10 feet (QC): 6 Walk 50 ft with 2 Turns(QC): 6 Walk 150 ft (QC): 6 Distance: 200' Gait Assistive Device: FWW Comments/Gait Description FWW for energy conservation Balance Sitting Static: Normal Sitting Dynamic: Normal Standing Static: Normal Standing Dynamic: Normal Assessment/Needs 68 y.o. female, will be seen short term by skilled PT to address pulmonary function with functional mobility. Patient is limited due to SOA with minimal activity. Rehab Potential: Fair PT Post Doc Fellowship Goals Long-Term Goals PT Long-Term Goals Time Frame: May 19, 2019 Roll Left & Right (QC): 6 Sit to Lying (QC): 6 Lying-Sitting on Side/Bed(QC): 6 Sit to Stand (QC): 6 Chair/Ord-we-Lryyz Xfer(QC): 6 Toilet Transfer (QC): 6 Does the Patient Walk: Yes Walk 10 feet (QC): 6 Walk 50ft with 2 Turns (QC): 6 Walk 150 ft (QC): 6 PT Plan Problem List Problem List: Activity Tolerance Treatment/Plan Treatment Plan: Continue Plan of Care Treatment Plan: Education, Functional Activity Rufina, Functional Strength, Gait, Safety, Therapeutic Exercise, Transfers Treatment Duration: May 19, 2019 Frequency: 6 times per week Estimated Hrs Per Day: .25 hour per day Patient and/or Family Agrees t: Yes Time/GCodes Time In: 830 Time Out: 848 Total Billed Treatment Time: 18 Total Billed Treatment 1 visit EVModC 18 min SUZIE ASH PT May 10, 2019 10:33
[2019-05-10 12:00] VITALS: BP 112/79
--- NOTE | 2019-05-10 13:15 | Occupational Therapy Eval ---
OT Evaluation-General/PLF Medical Diagnosis Admission Date May 07, 2019 at 12:55 Medical Diagnosis: CHF/elevated troponin/COPD Onset Date: May 07, 2019 Therapy Diagnosis Therapy Diagnosis: Weakness Height/Weight Height (Feet): 5 Height (Inches): 5.00 Weight (Pounds): 243 Weight (Ounces): 0.2 Precautions Precautions/Isolations: Standard Precautions Safety Interventions: None Weight Bear Status Weight Bearing Restriction: Weight Bearing/Tolerated Referral Physician: Maggie Referral Reason: Activity Tolerance, Self Care, Evaluation/Treatment, Strengthening/ROM Medical History Pertinent Medical History: Atrial Fib, COPD, HTN Additional Medical History Heart failure, pneumonia Current History Pt. became SOA. Presented to hospital with acute on chronic heart failure with hypoxemia. Reviewed History: Yes Social History Home: Single Level Current Living Status: Spouse ADL-Prior Level of Function SCALE: Activities may be completed with or without assistive devices. 6-Iwpjngqgap-eekpabh completes the activity by him/herself with no assistance from a helper. 5-Set-up or Clean-up Assistance-helper sets up or cleans up; patient completes activity. [place] assists only prior to or following the activity. 4-Supervision or Touching Assistance-helper provides verbal cues and/or touching/steadying and/or contact guard assistance as patient completes acti vity. Assistance may be provided throughout the activity or intermittently. 3-Partial/Moderate Assistance-helper does LESS THAN HALF the effort. [place] lifts, holds or supports trunk or limbs, but provides less than half the effort. 2-Substantial/Maximal Assistance-helper does MORE THAN HALF the effort. [place] lifts or holds trunk or limbs and provides more than half the effort. 4-Zrieiumcq-qpxowq does ALL the effort. Patient does none of the effort to complete the activity. Or, the assistance of 2 or more helpers is required for the patient to complete the activity. If activity was not attempted, code reason: 7-Patient Refused. 9-Not Applicable-not attempted and the patient did not perform the activity before the current illness, exacerbation or injury. 10-Not Attempted due to Environmental Limitations-(lack of equipment, weather restraints, etc.). 88-Not Attempted due to Medical Conditions or Safety Concerns. ADL PLOF Comments Pt. was independent with daily tasks. States that she has a walker but was only using it for approximately the last week. Does wear oxygen at home. States that she can perform all ADLs, but does become SOA. Takes rest breaks and plans her day out. Self Care: Independent Functional Cognition: Independent OT Current Status Subjective No pain reported. Mental Status/Objective Patient Orientation: Person, Place, Time, Situation Current Glasses/Contacts: Yes Upper Extremity ROM WFL ADL-Treatment Eating (QC): 6 (Lunch tray arrives when OT in room. Pt. able to set up her own meal and eat with no difficulty.) On/Off Footwear (QC): 5 Pt. in bed when OT enters room. Transferred supine-sit with Mod I. This pt. is known to this therapist from previous hospitalizations. OT spoke with pt. regarding self care skills. Pt. reports that currently, she is able to do everything that she needs to do, but does become SOA when doing it. Pt. has already showered this date. Reports no difficulty. Pt. is able to doff/don socks by bending over. Talked with pt. about this "cutting her air off." Pt. is able to stand with SBA. OT talked with pt. regarding AE equipment training. Pt. is open to it to make doffing/donning LE clothing easier. OT went over energy conservation techniques briefly, but pt. aware, as OT had educated her in the past regarding this. OT to bring back AE and educate pt. on using it to make dressing/bathing easier. All needs met at this time. Education OT Patient Education: Correct positioning, Modified ADL techniques, Progress toward Goal/Update tx plan, Purpose of tx/functional activities, Reviewed precautions, Rehab process, Transfer techniques, Use of adapted equipment Teaching Recipient: Patient Teaching Methods: Demonstration, Discussion Response to Teaching: Verbalize Understanding, Return Demonstration OT Industrial Relations Worker Goals Industrial Relations Worker Goals Time Frame: May 17, 2019 Eating (QC): 6 Oral Hygiene (QC): 6 Toileting Hygiene (QC): 6 Shower/Bathe Self (QC): 6 Upper Body Dressing (QC): 6 Lower Body Dressing (QC): 6 On/Off Footwear (QC): 6 Additional Goals: 1-Demonstrate ADL Tasks, 2-Verbalize Understanding, 3- ImproveStrength/Rufina 1=Demonstrate adherence to instructed precautions during ADL tasks. 2=Patient will verbalize/demonstrate understanding of assistive devices/modifi cations for ADL. 3=Patient will improve strength/tolerance for activity to enable patient to perform ADL's. OT Education/Plan Problem List/Assessment Assessment: Decreased Activ Tolerance, Impaired I ADL's, Impaired Self-Care Skills Discharge Recommendations Plan/Recommendations: Continue POC Therapy Discharge Recommendati: Home & Family Equpiment Recommendations-D/C: Hip Kit Treatment Plan/Plan of Care Treatment,Training & Education: Yes Patient would benefit from OT for education, treatment and training to promote independence in ADL's, mobility, safety and/or upper extremity function for ADL's. Plan of Care: ADL Retraining, Functional Mobility, UE Funct Exercise/Act Treatment Duration: May 17, 2019 Frequency: 5 times per week Estimated Hrs Per Day: .25 hour per day Agreement: Yes Rehab Potential: Good Time/GCodes Start Time: 10:15 Stop Time: 12:00 Total Time Billed (hr/min): 15 Billed Treatment Time 1015- 1, visit- in room and OT to come back. [id number] 1, EVM x 15minutes JAC HELLER OT May 10, 2019 13:15
--- NOTE | 2019-05-10 13:31 | Occupational Ther Daily Note ---
OT Current Status-Daily Note Subjective Pt alert, lying in bed. Pt agrees to therapy. Pt c/o not knowing why she is so SOA. Mental Status/Objective Patient Orientation: Person, Place, Time, Situation Attachments: IV, Oxygen, Telemetry ADL-Treatment Pt educated on LE dressing equipment. Pt verbalized understanding and stated that she would try to get it at [facility]. Pt declined attempting equipment stating that she understands how to use equipment. After therapy, pt lying in bed with call light/phone in reach. Nrsg present in room. All needs met in room. Therapy Code Descriptions/Definitions Functional [place] Measure: 0=Not Assessed/NA 4=Minimal Assistance 1=Total Assistance 5=Supervision or Setup 2=Maximal Assistance 6=Modified [place] 3=Moderate Assistance 7=Complete IndependenceSCALE: Activities may be completed with or without assistive devices. 9-Utnczsnzjt-decruwl completes the activity by him/herself with no assistance from a helper. 5-Set-up or Clean-up Assistance-helper sets up or cleans up; patient completes activity. [place] assists only prior to or following the activity. 4-Supervision or Touching Assistance-helper provides verbal cues and/or touching/steadying and/or contact guard assistance as patient completes activity. Assistance may be provided throughout the activity or intermittently. 3-Partial/Moderate Assistance-helper does LESS THAN HALF the effort. Tw[place] lifts, holds or supports trunk or limbs, but provides less than half the effort. 2-Substantial/Maximal Assistance-helper does MORE THAN HALF the effort. [place] lifts or holds trunk or limbs and provides more than half the effort. 4-Bcosskjpg-lkjwfv does ALL the effort. Patient does none of the effort to complete the activity. Or, the assistance of 2 or more helpers is required for the patient to complete the activity. If activity was not attempted, code reason: 7-Patient Refused. 9-Not Applicable-not attempted and the patient did not perform the activity before the current illness, exacerbation or injury. 10-Not Attempted due to Environmental Limitations-(lack of equipment, weather restraints, etc.). 88-Not Attempted due to Medical Conditions or Safety Concerns. 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 2=Patient will verbalize/demonstrate understanding of assistive devices/modifications for ADL. 3=Patient will improve strength/tolerance for activity to enable patient to perform ADL's. OT Education/Plan Problem List/Assessment Assessment: Decreased Activ Tolerance, Impaired Self-Care Skills Discharge Recommendations Plan/Recommendations: Continue POC Treatment Plan/Plan of Care Patient would benefit from OT for education, treatment and training to promote independence in ADL's, mobility, safety and/or upper extremity function for ADL's. Plan of Care: ADL Retraining, Functional Mobility, UE Funct Exercise/Act Treatment Duration: May 17, 2019 Frequency: 5 times per week Estimated Hrs Per Day: .25 hour per day Agreement: Yes Rehab Potential: Good Time/GCodes Start Time: 14:10 Stop Time: 14:24 Total Time Billed (hr/min): 14 Billed Treatment Time 1 visit-ADL 1 (14 min) ANTHONY SMITH May 10, 2019 13:31
--- NOTE | 2019-05-10 14:47 | Discharge Inst-Simple/Standard ---
Discharge Inst-Standard Reconcile Patient Problems Problems Reviewed?: Yes Patient Instructions/Follow Up Plan of Care/Instructions/FU: Please continue to take your medications as written. Please follow up with Dr Rose as scheduled and with [facility] in June. Activity as Tolerated: Yes Discharge Diet: Low Sodium Diet Return to The Hospital For: Chest pain, shortness of breath, low oxygen, if you feel you are getting worse. Planned Outpatient Orders/Ref. Pneu Vac Indicated: Yes XIN MASTERSON MD May 10, 2019 14:47
--- NOTE | 2019-05-10 14:48 | Discharge Summary ---
Diagnosis/Chief Complaint Date of Admission May 07, 2019 at 12:55 Date of Discharge Discharge Date: May 10, 2019 Admission Diagnosis acute on chronic heart failure with preserved ejection fraction Primary Care Carlos Castellano MD Discharge Diagnosis (1) Acute on chronic heart failure with preserved ejection fraction Status: Acute (2) Acute and chronic respiratory failure with hypoxia Status: Acute (3) Acute kidney injury superimposed on chronic kidney disease Status: Acute (4) Paroxysmal atrial flutter Status: Chronic (5) COPD without exacerbation Status: Chronic Discharge Summary Discharge Physical Exam Allergies: Coded Allergies: No Known Drug Allergies (Unverified , 11/03/11) Vitals & I&Os Vital Signs Date Time Temp Pulse Resp B/P (MAP) Pulse Ox O2 Delivery O2 Flow Rate FiO2 05/10/19 13:00 97 05/10/19 12:00 Nasal Cannula 3.00 05/10/19 12:00 36.3 20 112/79 (90) 94 05/07/19 16:49 32 Hospital Course Labs (last 24 hrs) Laboratory Tests 05/09/19 15:25: Urine Color YELLOW, Urine Clarity SL CLOUDY, Urine pH 6.5, Urine Specific [place] 1.015L, Urine Protein NEGATIVE, Urine Glucose (UA) NEGATIVE, Urine Ketones NEGATIVE, Urine Nitrite NEGATIVE, Urine Bilirubin NEGATIVE, Urine Urobilinogen 1.0, Urine Leukocyte Esterase 1+H, Urine RBC (Auto) NEGATIVE, Urine RBC NONE, Urine WBC 5-10H, Urine Squamous Epithelial Cells 0-2, Urine Crystals NONE, Urine Bacteria LARGEH, Urine Casts NONE, Urine Mucus NEGATIVE, Urine Culture Indicated YES Microbiology 05/09/19 Urine Culture - Preliminary, Resulted Escherichia coli Patient resulted labs reviewed. Imaging: Reviewed Imaging Report Discharge Home Medications: Active Scripts Active Reported Claritin-D 12 Hour Tablet (Loratadine/Pseudoephedrine) 1 Each Tab.er.12h 1 Tab PO BID PRN Saline Nasal [place] (Sodium Chloride) 30 Ml [place] 1-2 Sprays NS QID PRN Furosemide 40 Mg Tablet 40 Mg PO BID Aspirin EC (Aspirin) 81 Mg Tablet.dr 81 Mg PO DAILY Amiodarone HCl 200 Mg Tablet 200 Mg PO DAILY FILLED 05-02-19 - HAS NOT PICKED UP YET Iprat-Albut 0.5-3(2.5) mg/3 ml (Ipratropium/Albuterol Sulfate) 3 Ml Ampul.neb 3 Ml NEB QID PRN Advair 250-50 Diskus (Fluticasone/Salmeterol) 1 Each Blst.w.dev 1 Puff IH BID Spiriva Respimat 2.5MCG/ACTUATION (Tiotropium [place]) 4 Gm Mist.inhal 2 Puff INH DAILY Potassium Chloride 10 Meq Tablet.er 10 Meq PO DAILY Allopurinol 100 Mg Tablet 100 Mg PO DAILY Calcitriol 0.25 Mcg Capsule 0.25 Mcg PO MOWEFR One Daily For Women Tablet (Folic Acid/Mv,Fe,Other Min) 1 Each Tablet 1 Tab PO DAILY Clotrimazole-Betamethasone Crm (Clotrimazole/Betamethasone Dip) 15 Gm Cream..g. 1 Applic TOP BID PRN Vitamin D-3 (Cholecalciferol (Vitamin D3)) 2,000 Unit Capsule 2,000 Unit PO BACILIO Y Tylenol (Acetaminophen) 325 Mg Tablet 650 Mg PO Q6H PRN Fluticasone Propionate 16 Gm [place].susp 1 [place] NS HS Ventolin Hfa (Albuterol Sulfate) 18 Gm Hfa.aer.ad 2 Puff INH QID PRN Metoprolol Tartrate 50 Mg Tablet 50 Mg PO BID Eliquis (Apixaban) 5 Mg Tablet 5 Mg PO BID Cetirizine HCl 10 Mg Tablet 10 Mg PO HS PRN Instructions to patient/family Please see electronic discharge instructions given to patient. Clinical Quality Measures DVT/VTE Risk/Contraindication: Risk Factor Score Per Nursin RFS Level Per Nursing on Admit: 4+=Very High XIN MASTERSON MD May 10, 2019 14:48
--- NOTE | 2019-05-10 17:34 | Cardiology Progress Note ---
Cardiology SOAP Progress Note Subjective: Significantly improved shortness of breath. Objective: I&O/Vital Signs 05/10/19 05/10/19 05/10/19 05/10/19 07:00 07:35 08:00 08:00 Temp 36.7 Pulse 103 107 Resp 18 B/P (MAP) 106/72 (83) Pulse Ox 93 95 O2 Delivery Nasal Cannula Nasal Cannula Nasal Cannula O2 Flow Rate 3.00 3.00 3.00 05/10/19 05/10/19 05/10/19 05/10/19 08:00 11:04 12:00 12:00 Temp 36.3 Pulse 97 Resp 20 B/P (MAP) 112/79 (90) Pulse Ox 92 94 O2 Delivery Nasal Cannula Nasal Cannula Nasal Cannula Nasal Cannula O2 Flow Rate 3.00 3.00 3.00 3.00 05/10/19 05/10/19 05/10/19 05/10/19 13:00 14:59 16:00 16:40 Pulse 97 B/P (MAP) Pulse Ox 91 O2 Delivery Nasal Cannula Nasal Cannula O2 Flow Rate 3.00 3.00 05/10/19 00:00 Intake Total 1250 ml Output Total 600 ml Balance 650 ml Weight (Pounds): 243 Weight (Ounces): 0.2 Weight (Calculated Kilograms): 97.794321 Constitutional: appears stated age, AAO x 3; No apparent distress; well- developed, well-nourished Respiratory: chest is bilaterally symmetric, other (decreased air entry bilaterally.) Cardiovascular: irregularly irregular, S1 and S2 Gastrointestional: soft, audible bowel sounds; No spleenomegaly Extremities: normal range of motion, non-tender, normal inspection, pedal edema; No clubbing, No cyanosis, No significant edema Neurologic/Psychiatric: no motor/sensory deficits, alert, normal mood/affect, oriented x 3, power is 5/5 both on sides Skin: normal color; No rash, No ulcerations Results/Procedures: Labs Microbiology 05/09/19 Urine Culture - Preliminary, Resulted Escherichia coli A/P: Assessment/Dx: Acute diastolic congestive heart failure, Chest pain, COPD, Chronic Atrial fibrillation, Chronic kidney disease stage IV, Pulmonary hypertension. severe mitral regurgitation. Plan: Acute diastolic congestive heart failure, IV Lasix. Significantly improved. Chest pain, serial troponin. Borderline positive troponin. Likely type II myocardial infarction due to congestive heart failure. COPD, defer to the primary team. Atrial fibrillation, on amiodarone and Eliquis. Echocardiogram showed normal LV function with moderate diastolic dysfunction. Severe tricuspid regurgitation, severe mitral regurgitation, moderate to severe pulmonary hypertension. Chest discomfort and shortness of breath of unclear etiology, improved Card cath of 04/12/19: normal cors, LVEF 50%, LVEDP 17 mmHg, no significant MR on this study H/O nonischemic cardiomyopathy with an ejection fraction between 30 and 35% on serial echocardiograms previously. Most recent echocardiogram of Mar 24, 2019 shows LVEF 50-55%, LA mild to mod dilated; Mod-severe MR and TR. PASP 60mmHg Chronic systolic and diastolic CHF due to nonischemic cardiomyopathy currently clinically compensated Anemia of undetermined etiology (possibly due to CKD) [facility] Intolerance to ORAL-inhib / ARB due to worsening renal function Suspected sarcoidosis, followed by Dr Rose. 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 Rose resident service coordinator S/p dual chamber ICD, pulse generator change out on 09-22-18 and subsequent superficial dehiscence at the device insertion site that healed by secondary intention. Device functioning normally per interrogation of Feb 2019 Paroxysmal atrial flutter with an intermittent rapid ventricular response. In July 2012, she received one shock ICD for atrial flutter but has not has not received any since. She has not had any syncope or presyncope. Intolerance to digoxin (results in N/V and poor apetite) Chronic LBBB CKD-4, being followed by Dr Huff History of bronchial asthma, managed by Dr Rose Chronic anticoagulation with Eliquis therapy for stroke prophylaxis. MAXIM, treated with CPAP H/o pulm hypertension on echo studies of 2011,2012, 2013, echo studies of 2015 and 2017 had shown PASP approx 30-35 mmHg. Most recent echo of Mar 2019 showed PASP 60mmHg Mild carotid dz per u/s of Mar 2019 Thank you for your consultation. Please call me if you have any questions. Thias Pritchett MD, FACP, FACC, FSCAI, FHRS, CCDS Interventional Cardiology Cardiac Electrophysiology Vascular Medicine and Endovascular Interventions Mervat PRITCHETT MD May 10, 2019 17:34
== END 2019-05-10 16:40 | disposition home or self-care (01) | DRG 280 ==
LOC: EDUNIT# 10:35 → ER 10:36 → CSD 12:55
PROVIDERS: ADMIT Internal Medicine; ATTEND Internal Medicine
DX: I13.0 Hypertensive heart and chronic kidney disease with heart failure and stage 1 through stage 4 chronic kidney disease, or unspecified chronic kidney disease (principal); I21.A1 Myocardial infarction type 2; I50.33 Acute on chronic diastolic (congestive) heart failure; J96.21 Acute and chronic respiratory failure with hypoxia; N18.4 Chronic kidney disease, stage 4 (severe); N17.9 Acute kidney failure, unspecified; I48.92 Unspecified atrial flutter; Z68.41 Body mass index [BMI] 40.0-44.9, adult; J44.9 Chronic obstructive pulmonary disease, unspecified; E66.01 Morbid (severe) obesity due to excess calories; G47.33 Obstructive sleep apnea (adult) (pediatric); I48.0 Paroxysmal atrial fibrillation; I42.9 Cardiomyopathy, unspecified; I27.20 Pulmonary hypertension, unspecified; I08.1 Rheumatic disorders of both mitral and tricuspid valves; D86.9 Sarcoidosis, unspecified; I44.7 Left bundle-branch block, unspecified; D64.9 Anemia, unspecified; F17.200 Nicotine dependence, unspecified, uncomplicated; Z79.01 Long term (current) use of anticoagulants; Z95.810 Presence of automatic (implantable) cardiac defibrillator; Z99.81 Dependence on supplemental oxygen; Z90.710 Acquired absence of both cervix and uterus; Z90.49 Acquired absence of other specified parts of digestive tract
CPT/HCPCS: 36415; 71045; 80048; 80053; 81000; 82550; 82553; 82962; 83735; 83874; 83880; 84443; 84484; 85007; 85025; 85027; 85610; 85730; 87077; 87088; 87186; 93005; 93041; 93306; 94640; 94760; 96374

== ENCOUNTER 2019-05-17 09:32 | Observation (INO) | payer BC, MEDICARE ==
[~2019-05-17] VITALS: Ht 165.1 cm; Wt 109.8 kg
[~2019-05-17 09:32] MED LIST changes: +LORA1TAB59 PO; +SODI30SP2 NS
[2019-05-17] MEDS ORDERED: NITROGLYCERIN 0.4 MG SL TABS BTL 25'S SL PRN (09:45)
[2019-05-17 09:51] LABS: BASOPHILS % (AUTO) 0 % (0-10); EOSINOPHILS # (AUTO) 0.1 10^3/uL (0.0-0.3); EOSINOPHILS % (AUTO) 1 % (0-10); HEMATOCRIT 34 % (35-52); HEMOGLOBIN 10.2 G/DL (11.5-16.0); LYMPHOCYTES # (AUTO) 0.5 X 10^3 (1.0-4.0); LYMPHOCYTES % (AUTO) 8 % (12-44); MEAN CORPUSCULAR HEMOGLOBIN 29 PG (25-34); MEAN CORPUSCULAR HGB CONC 30 G/DL (32-36); MEAN CORPUSCULAR VOLUME 95 FL (80-99); MEAN PLATELET VOLUME 10.9 FL (7.4-10.4); MONOCYTES # (AUTO) 0.3 X 10^3 (0.0-1.0); MONOCYTES % (AUTO) 5 % (0-12); NEUTROPHILS # (AUTO) 5.7 X 10^3 (1.8-7.8); NEUTROPHILS % (AUTO) 86 % (42-75); PLATELET COUNT 255 10^3/uL (130-400); RED CELL DISTRIBUTION WIDTH 16.9 % (10.0-14.5); WHITE BLOOD COUNT 6.6 10^3/uL (4.3-11.0)
--- NOTE | 2019-05-17 10:04 | Diagnostic Imaging Report ---
INDICATION: Chest pain. TECHNIQUE/COMPARISON: A frontal chest was obtained at 0951 hours and is compared to 05/08/2019. FINDINGS: There is cardiomegaly with an unchanged pacemaker device. There is central vascular congestion with patchy bibasilar infiltrates. There is no pneumothorax or pleural fluid. IMPRESSION: Unchanged cardiomegaly and central vascular congestion with stable pacemaker device. Unchanged patchy bibasilar infiltrates. Dictated by: Dictated on workstation # [id number]
[2019-05-17 10:10] LABS: PROTHROMBIN TIME PATIENT 23.2 SEC (12.2-14.7)
[2019-05-17 10:19] LABS: ALBUMIN 4.3 GM/DL (3.2-4.5); BILIRUBIN,TOTAL 1.6 MG/DL (0.1-1.0); CALCIUM 9.5 MG/DL (8.5-10.1); CREATININE SERUM 1.87 MG/DL (0.60-1.30); MAGNESIUM 2.1 MG/DL (1.6-2.4); POTASSIUM 4.8 MMOL/L (3.6-5.0); TOTAL PROTEIN 7.4 GM/DL (6.4-8.2)
--- NOTE | 2019-05-17 10:26 | ED Chest Pain ---
General Chief Complaint: Chest Pain Stated Complaint: SOA;CP Nursing Triage Note: PT TO RM 7 BY WHEELCHAIR WITH COMPLAINT OF SOA AND CP. STATES SOA STARTED LAST NIGHT AND CP THIS MORNING. PT WEARS 3LNC. Nursing Sepsis Screen: No Definite Risk Source: patient Exam Limitations: no limitations History of Present Illness Date Seen by Provider: May 17, 2019 Time Seen by Provider: 09:38 Initial Comments Here with report of chest pain central and right-sided. States that she had worse shortness of breath. Chest pain started this morning and shortness of air started last night. This history of heart failure and was recently hospitalized for that. She is on Lasix. Does note that her legs are swelling. Denies nausea or vomiting. Does report weakness which is related to shortness of breath. Has had some nosebleeds and is chronically on oxygen at home. 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 NTG SL STRAIGHTENING ROLL OPERATOR: No Associated Symptoms: No abdominal pain, No back pain; edema; No fever/chills, No nausea/vomiting; shortness of breath; No weakness Allergies and Home Medications Allergies Coded Allergies: No Known Drug Allergies (Unverified , 11/03/11) Home Medications Acetaminophen 325 Mg Tablet, 650 MG PO Q6H PRN for PAIN-MILD, (Reported) Albuterol Sulfate 18 Gm Hfa.aer.ad, 2 PUFF INH QID PRN for SHORTNESS OF BREATH, (Reported) Allopurinol 100 Mg Tablet, 100 MG PO DAILY, (Reported) Amiodarone HCl 200 Mg Tablet, 200 MG PO DAILY, (Reported) FILLED 05-02-19 - HAS NOT PICKED UP YET Apixaban 5 Mg Tablet, 5 MG PO BID, (Reported) Aspirin 81 Mg Tablet.dr, 81 MG PO DAILY, (Reported) Calcitriol 0.25 Mcg Capsule, 0.25 MCG PO MoWeFr, (Reported) Cetirizine HCl 10 Mg Tablet, 10 MG PO HS PRN for ALLERGIES, (Reported) Cholecalciferol (Vitamin D3) 2,000 Unit Capsule, 2,000 UNIT PO DAILY, (Reported) Clotrimazole/Betamethasone Dip 15 Gm Cream..g., 1 APPLIC TOP BID PRN for RASH, (Reported) Fluticasone Propionate 16 Gm [place].susp, 1 SPRAY NS HS, (Reported) Fluticasone/Salmeterol 1 Each Blst.w.dev, 1 PUFF IH BID, (Reported) Folic Acid/Mv,Fe,Other Min 1 Each Tablet, 1 TAB PO DAILY, (Reported) Furosemide 40 Mg Tablet, 40 MG PO BID, (Reported) Ipratropium/Albuterol Sulfate 3 Ml Ampul.neb, 3 ML NEB QID PRN for SHORTNESS OF BREATH, (Reported) Loratadine/Pseudoephedrine 1 Each Tab.er.12h, 1 TAB PO BID PRN for CONGESTION, (Reported) Metoprolol Tartrate 50 Mg Tablet, 50 MG PO BID, (Reported) Potassium Chloride 10 Meq Tablet.er, 10 MEQ PO DAILY, (Reported) Sodium Chloride 30 Ml [place], 1-2 SPRAYS NS QID PRN for DRY NOSE, (Reported) Tiotropium [place] 4 Gm Mist.inhal, 2 PUFF INH DAILY, (Reported) Patient Home Medication List Home Medication List Reviewed: Yes Review of Systems Review of Systems Constitutional: see HPI; No chills, No fever EENTM: See HPI Respiratory: Cough, Shortness of Air, Wheezing Cardiovascular: Chest Pain, Edema, Irregular Heart Rate Gastrointestinal: No Symptoms Reported Genitourinary: No Symptoms Reported Musculoskeletal: no symptoms reported Skin: no symptoms reported Psychiatric/Neurological: No Symptoms Reported All Other Systems Reviewed Negative Unless Noted: Yes Past Uxojwwa-Niihaz-Tucoap Hx Past Med/Social Hx: Reviewed Nursing Past Med/Soc Hx Patient Social History Alcohol Use: Rarely Uses Recreational Drug Use: No Smoking Status: Never a Smoker 2nd Hand Smoke Exposure: No Recent Foreign Travel: No Contact w/Someone Who Travel: No Recent Infectious Disease Expo: No Recent Hopitalizations: Yes (pneumonia 03/2019) Immunizations Up To Date Date of Influenza Vaccine: Feb 06, 2012 Seasonal Allergies Seasonal Allergies: Yes Past Medical History Surgeries: Yes (Appy and hysterectomy ) Appendectomy, Defibrillator, Hysterectomy Respiratory: Yes Sleep Apnea, COPD Currently Using CPAP: Yes (WITH O2) Currently Using BIPAP: No Cardiac: Yes (CHF WITH RECENT MULTIPLE SHOCKS FROM DEFIB) Atrial Fibrillation, Cardiomyopathy, Hypertension Neurological: No Reproductive Disorders: Yes Sexually Transmitted Disease: No HIV/AIDS: No Genitourinary: Yes Renal Failure Gastrointestinal: No Musculoskeletal: No Endocrine: No HEENT: No Loss of Vision: Denies Cancer: No Psychosocial: No Integumentary: No Blood Disorders: No Adverse Reaction/Blood Tranf: No Family Medical History Reviewed Nursing Family Hx Patient reports no known family medical history. No Pertinent Family Hx Physical Exam Vital Signs Vital Signs - First Documented 05/17/19 09:33 Temp 37.2 Pulse 101 Resp 30 B/P (MAP) 122/79 (93) Pulse Ox 91 O2 Delivery Nasal Cannula O2 Flow Rate 3.0 Capillary Refill : Less Than 3 Seconds Height, Weight, BMI Height: 5'5.00" Weight: 243lbs. 0.2oz. 97.394551ps; 39.00 BMI Method:Stated General Appearance: No Apparent Distress, WD/WN, Obese HEENT: PERRL/EOMI, Pharynx Normal Neck: Non Tender, Supple Respiratory: No Respiratory Distress, Expiration, Wheezing Cardiovascular: No Murmur, Irregularly Irregular, Tachycardia Gastrointestinal: Non Tender, Soft Extremity: Normal Range of Motion, Non Tender, Pedal Edema (2+ bilateral lower extremities at the knees) Neurologic/Psychiatric: Alert, Oriented x3 Skin: Normal Color, Warm/Dry Progress/Results/Core Measures Results/Orders Lab Results Laboratory Tests Test 05/17/19 09:40 Range/Units White Blood Count 6.6 4.3-11.0 10^3/uL Red Blood Count 3.55 L 4.35-5.85 10^6/uL Hemoglobin 10.2 L 11.5-16.0 G/DL Hematocrit 34 L 35-52 % Mean Corpuscular Volume 95 80-99 FL Mean Corpuscular Hemoglobin 29 25-34 PG Mean Corpuscular Hemoglobin Concent 30 L 32-36 G/DL Red Cell Distribution Width 16.9 H 10.0-14.5 % Platelet Count 255 130-400 10^3/uL Mean Platelet Volume 10.9 H 7.4-10.4 FL Neutrophils (%) (Auto) 86 H 42-75 % Lymphocytes (%) (Auto) 8 L 12-44 % Monocytes (%) (Auto) 5 0-12 % Eosinophils (%) (Auto) 1 0-10 % Basophils (%) (Auto) 0 0-10 % Neutrophils # (Auto) 5.7 1.8-7.8 X 10^3 Lymphocytes # (Auto) 0.5 L 1.0-4.0 X 10^3 Monocytes # (Auto) 0.3 0.0-1.0 X 10^3 Eosinophils # (Auto) 0.1 0.0-0.3 10^3/uL Basophils # (Auto) 0.0 0.0-0.1 10^3/uL Neutrophils % (Manual) 85 % Lymphocytes % (Manual) 6 % Monocytes % (Manual) 4 % Eosinophils % (Manual) 2 % Basophils % (Manual) 1 % Band Neutrophils 2 % Poikilocytosis SLIGHT Anisocytosis SLIGHT Elliptocytes SLIGHT Prothrombin Time 23.2 H 12.2-14.7 SEC INR Comment 2.0 H 0.8-1.4 Activated Partial Thromboplast Time 37 H 24-35 SEC Sodium Level 139 135-145 MMOL/L Potassium Level 4.8 3.6-5.0 MMOL/L Chloride Level 99 98-107 MMOL/L Carbon Dioxide Level 22 21-32 MMOL/L Anion Gap 18 H 5-14 MMOL/L Blood Urea Nitrogen 30 H 7-18 MG/DL Creatinine 1.87 H 0.60-1.30 MG/DL Estimat Glomerular Filtration Rate 33 BUN/Creatinine Ratio 16 Glucose Level 127 H 70-105 MG/DL Calcium Level 9.5 8.5-10.1 MG/DL Corrected Calcium 9.3 8.5-10.1 MG/DL Magnesium Level 2.1 1.6-2.4 MG/DL Total Bilirubin 1.6 H 0.1-1.0 MG/DL Aspartate Amino Transf (AST/SGOT) 45 H 5-34 U/L Alanine Aminotransferase (ALT/SGPT) 32 0-55 U/L Alkaline Phosphatase 86 40-136 U/L Myoglobin 158.7 H 10.0-92.0 NG/ML Troponin I 0.062 H <0.028 NG/ML B-Type Natriuretic Peptide 1027.5 H <100.0 PG/ML Total Protein 7.4 6.4-8.2 GM/DL Albumin 4.3 3.2-4.5 GM/DL Lipase 24 8-78 U/L My Orders Orders - ANÍBAL CARDOZA MD Ekg Tracing (05/17/19 09:35) Cbc With Automated Diff (05/17/19 09:40) Magnesium (05/17/19 09:40) Chest 1 View, Ap/Pa Only (05/17/19 09:40) Comprehensive Metabolic Panel (05/17/19 09:40) Myoglobin Serum (05/17/19 09:40) Protime With Inr (05/17/19 09:40) Partial Thromboplastin Time (05/17/19 09:40) O2 (05/17/19 09:40) Monitor-Rhythm Ecg Trace Only (05/17/19 09:40) Lipid Panel (05/18/19 06:00) Ed Iv/Invasive Line Start (05/17/19 09:40) Lipase (05/17/19 09:40) BNP (05/17/19 09:40) Troponin I (05/17/19 09:40) Nitroglycerin 0.4 Mg Btl 25's (Nitrostat (05/17/19 09:45) Manual Differential (05/17/19 09:40) Furosemide Injection (Lasix Injection) (05/17/19 12:01) Furosemide Injection (Lasix Injection) (05/17/19 12:13) Medications Given in ED Current Medications Medications Dose Ordered Sig/Jennifer Route Start Time Stop Time Status Last Admin Dose Admin Nitroglycerin 0.4 mg UD PRN SL 05/17/19 09:45 05/17/19 09:44 0.4 MG Vital Signs/I&O 05/17/19 05/17/19 09:33 09:33 Temp 37.2 Pulse 101 Resp 30 B/P (MAP) 122/79 (93) Pulse Ox 91 O2 Delivery Nasal Cannula Nasal Cannula O2 Flow Rate 3.0 3.00 Blood Pressure Mean: 93 Progress Progress Note : Progress Note Seen and evaluated. IV, labs, EKG and chest x-ray ordered. Patient did take aspirin already this morning. Monitor patient. 1201: Lasix IV ordered for apparent heart failure. Does have bump in troponin indicating type 2 TX likely secondary to heart failure. She will need admission. I discussed the case with Dr. Serrano, on-call for hospitalist service and he accepts patient for admission. 1210: I discussed the case with Dr. Wilson, patient's primary cistern room operator and he accepts patient and consult and is requesting Lasix 80 mg IV now and twice a day with potassium 20 mEq by mouth daily. I did discuss at [facility] with the patient regarding diet especially at home after discharge from the hospital. It does appear that she did have salty food after discharge and I think this is what is likely causing her weight gain and water retention and heart failure. She states that she knows that it's bad and she is trying. Admit, inpatient status. Patient agrees with plan. Initial ECG Impression Date: May 17, 2019 Initial ECG Impression Time: 09:38 Initial ECG Rate: 97 Initial ECG Rhythm: A Fib/Flutter Comment Atrial fibrillation, left bundle branch block ECG noted. No evidence of ST elevation TX. Similar to previous with respect to morphology but seems to go in and out of atrial fibrillation from 05/07/19. Interpreted by me. Diagnostic Imaging Diagonstic Imaging: Xray Plain Films/CT/US/NM/MRI: chest Comments [facility]. [place], [place] NAME: MARQUIS SHEEHAN [facility] REC#: [id number] PT STATUS: REG ER : 1950 PHYSICIAN: ANÍBAL CARDOZA MD ADMIT DATE: 05/17/19/ER Draft Date of Exam:05/17/19 CHEST 1 VIEW, AP/PA ONLY INDICATION: Chest pain. TECHNIQUE/COMPARISON: A frontal chest was obtained at 0951 hours and is compared to 05/08/2019. FINDINGS: There is cardiomegaly with an unchanged pacemaker device. There is central vascular congestion with patchy bibasilar infiltrates. There is no pneumothorax or pleural fluid. IMPRESSION: Unchanged cardiomegaly and central vascular congestion with stable pacemaker device. Unchanged patchy bibasilar infiltrates. Dictated on workstation # [id number] Dict: 05/17/19 0953 Trans: 05/17/19 1003 [id number] Interpreted by: FERNANDO ELIAS MD Electronically signed by: Departure Communication (Admissions) Time/Spoke to Admitting Phy: 12:01 Time/Spoke to Consulting Phy: 12:10 Impression Primary Impression: Acute on chronic heart failure Qualified Codes: I50.9 - Heart failure, unspecified Additional Impression: Non-ST elevation TX (NSTEMI) Disposition: ADMITTED INPATIENT Condition: Improved Admissions Decision to Admit Reason: Admit from ER (General) Decision to Admit/Date: May 17, 2019 Time/Decision to Admit Time: 12:01 Departure-Patient Inst. Referrals: CAPRI CARCAMO MD (PCP/Family) Primary Care Physician ANÍBAL CARDOZA MD May 17, 2019 10:26
[2019-05-17 10:43] LABS: BAND NEUTROPHILS 2 %; BASOPHILS % (MANUAL) 1 %; EOSINOPHILS % (MANUAL) 2 %; LYMPHOCYTES % (MANUAL) 6 %; MONOCYTES % (MANUAL) 4 %; NEUTROPHILS % (MANUAL) 85 %
[2019-05-17 10:44] LABS: ANISOCYTOSIS SLIGHT; ELLIPT/OVALOCYTES SLIGHT; POIKILOCYTOSIS SLIGHT
[2019-05-17] MEDS ORDERED: FUROSEMIDE 40 MG/4 ML INJ (LASIX) IV STA ×2 (12:01→12:13)
[2019-05-17 12:55] VITALS: BP 115/73
--- NOTE | 2019-05-17 12:55 | NUR ---
MARQUIS SHEEHAN admitted to room 429-1, with an admitting diagnosis of CHF, on 05/17/19 from ER via W/C, accompanied by STAFF.MARQUIS SHEEHAN introduced to surroundings, call light, bed controls, phone, TV, temperature control, lights, meal times, smoking policy, visitor policy, side rail policy, bathrooms and showers. Patient Rights given to patient in the handbook.MARQUIS SHEEHAN verbalizes understanding that [facility] is not responsible for the loss or damage to any personal effects or valuables that are kept in the patients posession during their hospitalization. The following Patient Care Plans were discussed with the PT: Discharge Planning, PAIN CONTROL,IV THERAPY AND MEDS, and TESTS AND PROCEDURES. MARQUIS SHEEHAN verbalizes understanding of Interdisciplinary Patient Education. Patient and/or family were informed about the Rapid Response Team and its purpose.
--- NOTE | 2019-05-17 12:58 | Consultation-Cardiology ---
HPI-Cardiology Cardiology Consultation: Date of Consultation 05/17/19 Time Seen by a Provider: 13:10 Date of Admission 05/17/19 Attending Physician Jyothi Serrano MD Admitting Physician Carlos Castellano MD Consulting Physician Suzette Wilson MD HPI: Chief Complaint: Chest pain Dyspnea Ms. Hurley is a 68 year old female admitted to 429 from the ED with c/o increasing bilat LE swelling and progressive exertional dyspnea. She states for the last 3-4 days she has noticed increased bilat LE swelling up to her knees. She states she has been compliant with her medications. She reports increasing FERMIN over the last 2-3 days. She denies any c/o CP, palpitations. She reports frequent nose bleeds and dry nares. She reports when she blows her nose she notices dried blood and then it will bleed a small amount for a few minutes and resolve on its own. She reports that she has been using normal saline mist spray and on OTC nasal decongestant. She also reports on the day after she went to her sons house and got out of the car; she walked around the car and passed out. She reports she was only out for a few seconds. She reports feeling dizzy prior to the syncopal episode, but no palpitations and no shock from her device. She reports she has frequent episodes of dizziness when she first gets up from a sitting or lying position. She denies any other syncopal or near syncopal episodes. She denies any loss of bowel or bladder control. She denies any fever, chills or productive cough. She states she has been drinking a lot of fluids at home to stay hydrated. She also reports an abr asion to her left hand, below the thumb from her fall. Review of Systems-Cardiology Review of Systems Constitutional: No chills, No fever Eyes: no symptoms reported Ears/Nose/Throat: epistaxis; No recent hearing loss Respiratory: As described under HPI Cardiovascular: As described under HPI Gastrointestinal: No constipation, No diarrhea, No nausea, No vomiting Genitourinary: No dysuria, No hematuria Musculoskeletal: no symptoms reported Skin: other (abrasion to the palm of her left hand) Psychiatric/Neurological: syncope; No anxiety, No depression, No seizure, No focal weakness Hematologic: easy bruising; No bleeding abnormalities All Other Systems Reviewed Negative Unless Noted: Yes OYP-Gvwell-Mdfuyy Hx Patient Social History Alcohol Use: Rarely Uses Recreational Drug Use: No Smoking Status: Never a Smoker 2nd Hand Smoke Exposure: No Recent Foreign Travel: No Recent Infectious Disease Expo: No Hospitalization with Isolation: Denies Immunizations Up To Date Date of Influenza Vaccine: Feb 06, 2012 Past Medical History PMH As described under Assessment. Family Medical History Family Medical History: She reports her father had HTN. No reported family h/o CAD or SCD. Family History: Patient reports no known family medical history. Allergies and Home Medications Allergies Coded Allergies: No Known Drug Allergies (Unverified , 11/03/11) Home Medications Acetaminophen 325 Mg Tablet, 650 MG PO Q6H PRN for PAIN-MILD, (Reported) Albuterol Sulfate 18 Gm Hfa.aer.ad, 2 PUFF INH QID PRN for SHORTNESS OF BREATH, (Reported) Allopurinol 100 Mg Tablet, 100 MG PO DAILY, (Reported) Amiodarone HCl 200 Mg Tablet, 200 MG PO DAILY, (Reported) Apixaban 5 Mg Tablet, 5 MG PO BID, (Reported) Aspirin 81 Mg Tablet.dr, 81 MG PO DAILY, (Reported) Calcitriol 0.25 Mcg Capsule, 0.25 MCG PO MoWeFr, (Reported) Cetirizine HCl 10 Mg Tablet, 10 MG PO HS PRN for ALLERGIES, (Reported) Cholecalciferol (Vitamin D3) 2,000 Unit Capsule, 2,000 UNIT PO DAILY, (Reported) Clotrimazole/Betamethasone Dip 15 Gm Cream..g., 1 APPLIC TOP BID PRN for RASH, (Reported) Fluticasone Propionate 16 Gm [place].susp, 1 SPRAY NS HS, (Reported) Fluticasone/Salmeterol 1 Each Blst.w.dev, 1 PUFF IH BID, (Reported) Folic Acid/Mv,Fe,Other Min 1 Each Tablet, 1 TAB PO DAILY, (Reported) Furosemide 40 Mg Tablet, 40 MG PO BID, (Reported) Ipratropium/Albuterol Sulfate 3 Ml Ampul.neb, 3 ML NEB QID PRN for SHORTNESS OF BREATH, (Reported) Loratadine/Pseudoephedrine 1 Each Tab.er.12h, 1 TAB PO BID PRN for CONGESTION, (Reported) Metoprolol Tartrate 50 Mg Tablet, 50 MG PO BID, (Reported) Potassium Chloride 10 Meq Tablet.er, 10 MEQ PO DAILY, (Reported) Sodium Chloride 30 Ml [place], 1-2 SPRAYS NS QID PRN for DRY NOSE, (Reported) Tiotropium [place] 4 Gm Mist.inhal, 2 PUFF INH DAILY, (Reported) Physical Exam-Cardiology Physical Exam Vital Signs/I&O 05/17/19 05/18/19 05/18/19 05/18/19 23:52 00:45 03:33 05:00 Temp 36.3 36.6 Pulse 96 98 101 Resp 20 20 B/P (MAP) 102/61 (75) 111/79 (90) Pulse Ox 97 97 97 O2 Delivery Nasal Cannula Nasal Cannula Nasal Cannula O2 Flow Rate 3.00 3.00 3.00 05/18/19 05/18/19 05/18/19 05/18/19 07:00 07:33 07:35 08:18 Temp 36.1 Pulse 100 98 Resp 20 B/P (MAP) 115/64 (81) 115/64 (81) 110/64 (79) Pulse Ox 98 91 O2 Delivery Nasal Cannula Nasal Cannula O2 Flow Rate 3.00 3.00 05/18/19 00:00 Intake Total 1450 ml Output Total 1200 ml Balance 250 ml Capillary Refill : Less Than 3 Seconds Constitutional: AAO x 3, well-developed, well-nourished HEENT: PERRL, other (dried blood inside nares bilat), hearing is well preserved Neck: carotid pulses are 2 + bilaterally Respiratory: No accessory muscle use, No respiratory distress; chest expansion is symmetric, chest is bilaterally symmetric, rhonchi (scattered), other (good air entry) Cardiovascular: irregularly irregular; No JVD; S1 and S2 Gastrointestinal: No tender; soft, round, audible bowel sounds Extremities: swelling (bilat pitting edema) Neurologic/Psychiatric: grossly intact (moves all extremities) Skin: other (abrasion, approx the size of a quarter, to the palm of her left hand, below the thumb; multiple brusies/abrasions to her arms bilat) Data Review Labs Laboratory Tests 05/18/19 05:45: White Blood Count 5.3, Red Blood Count 3.23L, Hemoglobin 9.1L, Hematocrit 31L, Mean Corpuscular Volume 94, Mean Corpuscular Hemoglobin 28, Mean Corpuscular Hemoglobin Concent 30L, Red Cell Distribution Width 16.1H, Platelet Count 203, Mean Platelet Volume 10.5H, Neutrophils (%) (Auto) 78H, Lymphocytes (%) (Auto) 11L, Monocytes (%) (Auto) 9, Eosinophils (%) (Auto) 2, Basophils (%) (Auto) 0, Neutrophils # (Auto) 4.1, Lymphocytes # (Auto) 0.6L, Monocytes # (Auto) 0.5, Eosinophils # (Auto) 0.1, Basophils # (Auto) 0.0, Sodium Level 139, Potassium Level 3.4L, Chloride Level 97L, Carbon Dioxide Level 28, Anion Gap 14, Blood Urea Nitrogen 35H, Creatinine 1.95H, Estimat Glomerular Filtration Rate 31, B UN/Creatinine Ratio 18, Glucose Level 100, Calcium Level 9.4, Corrected Calcium 9.6, Magnesium Level 2.1, Total Bilirubin 1.3H, Aspartate Amino Transf (AST/SGOT) 22, Alanine Aminotransferase (ALT/SGPT) 25, Alkaline Phosphatase 78, Total Protein 6.6, Albumin 3.7, Triglycerides Level 66, Cholesterol Level 127, LDL Cholesterol Direct 83, VLDL Cholesterol 13, HDL Cholesterol 40 Radiology NAME: MARQUIS HURLEY [facility] REC#: [id number] PT STATUS: REG ER : 1950 PHYSICIAN: ANÍBAL CARDOZA MD ADMIT DATE: 05/17/19/ER Draft Date of Exam:05/17/19 CHEST 1 VIEW, AP/PA ONLY INDICATION: Chest pain. TECHNIQUE/COMPARISON: A frontal chest was obtained at 0951 hours and is compared to 05/08/2019. FINDINGS: There is cardiomegaly with an unchanged pacemaker device. There is central vascular congestion with patchy bibasilar infiltrates. There is no pneumothorax or pleural fluid. IMPRESSION: Unchanged cardiomegaly and central vascular congestion with stable pacemaker device. Unchanged patchy bibasilar infiltrates. Dictated on workstation # [id number] Dict: 05/17/19 0953 Trans: 05/17/19 1003 [id number] [id number] Interpreted by: FERNANDO ELIAS MD Electronically signed by: ECG Impression ECG Initial ECG Impression: Atrial Fibrillation Initial ECG Comparisson: Unchanged Comment LBBB A/P-Cardiology Assessment/Admission Diagnosis Multifactorial shortness of breath (see below) Card cath of 04/12/19: normal cors, LVEF 50%, LVEDP 17 mmHg, no significant MR on this study H/O nonischemic cardiomyopathy with an ejection fraction between 30 and 35% on serial echocardiograms previously. Most recent echocardiogram of Mar 24, 2019 shows LVEF 50-55%, LA mild to mod dilated; Mod-severe MR and TR. PASP 60mmHg. Most recent echo of May 08, [address] Pritchett showed LVEF 55-65%. Concentric LVH. Grade 2 diastolic dysfuncton. LA mild to mod dilated. Severe MR and TR. PASP 70-75mmHg. Acute on chronic systolic and diastolic CHF due to nonischemic cardiomyopathy Type 2 PA likely secondary to transient hypoxia and acute on chronic renal dz Syncopal episode of undetermined etiology (May 06, 2019 per pt report) Anemia of undetermined etiology (possibly due to CKD) managed by the Med Svce Intolerance to ORAL-inhib / ARB due to worsening renal function Suspected sarcoidosis, followed by Dr Rose. 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 Rose juvenile justice specialist S/p dual chamber ICD, pulse generator change out on 09-22-18 and subsequent superficial dehiscence at the device insertion site that healed by secondary intention. Device functioning normally per interrogation of Feb 2019 Paroxysmal atrial flutter with an intermittent rapid ventricular response. In July 2012, she received one shock ICD for atrial flutter but has not has not r eceived any since. Intolerance to digoxin (results in N/V and poor apetite) Chronic LBBB CKD-4, being followed by Dr Huff History of bronchial asthma, managed by Dr Rose Chronic anticoagulation with Eliquis therapy for stroke prophylaxis. Obesity-hypoventilation syndrome and MAXIM, treated with CPAP, but she is noncompliant H/o pulm hypertension on echo studies of 2011,2012, 2013, echo studies of 2015 and 2017 had shown PASP approx 30-35 mmHg. Most recent echo of Mar 2019 showed PASP 60mmHg Mild carotid dz per u/s of Mar 2019 Discussion and Recomendations Complex management issue Multi-factorial dyspnea as noted above IV Lasix to tx decompensated HF Replace electrolytes Continue home medications Reported syncopal episode of undetermined etiology - interrogate device to check for possible arrhythmia Check ortho v/s Further recs will be based on her hospital course We would like to thank medical services for this consult Clinical Quality Measures AMI/AHF: ASA po Prior to arrival: Yes VIRGIL CORNEJO May 17, 2019 12:58
[2019-05-17] MEDS ORDERED: CATHETER FLUSH 10 ML SYR IV PRN (13:30)
--- NOTE | 2019-05-17 13:30 | NUR ---
WENT OVER THE EXT MED HX WITH THE PATIENT AND SHE VERIFIED HOW SHE TAKES THEM. SHE ALSO LISTED HER OTC MEDS. IN ADDITION TO WHAT IS SHOWN ON THE EXT MED HX [facility]UA FILLED THE ADVAIR 250 04-06-19 FOR #1 INHALER.
[2019-05-17 16:00] VITALS: BP 118/74
[2019-05-17] MEDS: CATHETER FLUSH 10 ML SYR IV SCH ×2 (16:14→20:06)
[2019-05-17] MEDS: FUROSEMIDE 40 MG/4 ML INJ (LASIX) IVP SCH (16:14)
[2019-05-17] MEDS ORDERED: KCL 20 MEQ TAB (K-DUR) PO SCH (17:00)
--- NOTE | 2019-05-17 17:06 | Consultation-Cardiology ---
HPI-Cardiology Cardiology Consultation: Date of Consultation 05/17/19 Time Seen by a Provider: 16:50 Date of Admission Attending Physician Jyothi Serrano MD Admitting Physician Carlos Castellano MD Consulting Physician HENRY SMITH MD, MA, FACP, FACC, FSCAI, CCDS HPI: Chief Complaint: CC: Shortness of breath HPI Ms. Hurley is a 68 year old female admitted to 429 from the ED with c/o increasing bilat LE swelling and progressive exertional dyspnea. She states for the last 3-4 days she has noticed increased bilat LE swelling up to her knees. She states she has been compliant with her medications. She reports increasing FERMIN over the last 2-3 days. She denies any c/o CP, palpitations. She reports frequent nose bleeds and dry nares. She reports when she blows her nose she notices dried blood and then it will bleed a small amount for a few minutes and resolve on its own. She reports that she has been using normal saline mist spray and on OTC nasal decongestant. She also reports on the day after she went to her sons house and got out of the car; she walked around the car and passed out. She reports she was only out for a few seconds. She reports feeling dizzy prior to the syncopal episode, but no palpitations and no shock from her device. She reports she has frequent episodes of dizziness when she first gets up from a sitting or lying position. She denies any other syncopal or near syncopal episodes. She denies any loss of bowel or bladder control. She denies any fever, chills or productive cough. She states she has been drinking a lot of fluids at home to stay hydrated. She also reports an abrasion to her left hand, below the thumb from her fall. Review of Systems-Cardiology Review of Systems Constitutional: No chills, No fever Eyes: no symptoms reported Ears/Nose/Throat: epistaxis; No recent hearing loss Respiratory: As described under HPI Cardiovascular: As described under HPI Gastrointestinal: No constipation, No diarrhea, No nausea, No vomiting Genitourinary: No dysuria, No hematuria Musculoskeletal: no symptoms reported Skin: other (abrasion to the palm of her left hand) Psychiatric/Neurological: syncope; No anxiety, No depression, No seizure, No focal weakness Hematologic: easy bruising; No bleeding abnormalities All Other Systems Reviewed Negative Unless Noted: Yes GSG-Xqgmpr-Yandto Hx Patient Social History Alcohol Use: Rarely Uses Recreational Drug Use: No Smoking Status: Never a Smoker 2nd Hand Smoke Exposure: No Recent Foreign Travel: No Recent Infectious Disease Expo: No Hospitalization with Isolation: Denies Physical Abuse Screen: No Sexual Abuse: No Immunizations Up To Date Date of Influenza Vaccine: Feb 06, 2012 Past Medical History PMH As described under Assessment. Family Medical History Family Medical History: She reports her father had HTN. No reported family h/o CAD or SCD. Family History: Patient reports no known family medical history. Allergies and Home Medications Allergies Coded Allergies: No Known Drug Allergies (Unverified , 11/03/11) Home Medications Acetaminophen 325 Mg Tablet, 650 MG PO Q6H PRN for PAIN-MILD, (Reported) Albuterol Sulfate 18 Gm Hfa.aer.ad, 2 PUFF INH QID PRN for SHORTNESS OF BREATH, (Reported) Allopurinol 100 Mg Tablet, 100 MG PO DAILY, (Reported) Amiodarone HCl 200 Mg Tablet, 200 MG PO DAILY, (Reported) Apixaban 5 Mg Tablet, 5 MG PO BID, (Reported) Aspirin 81 Mg Tablet.dr, 81 MG PO DAILY, (Reported) Calcitriol 0.25 Mcg Capsule, 0.25 MCG PO MoWeFr, (Reported) Cetirizine HCl 10 Mg Tablet, 10 MG PO HS PRN for ALLERGIES, (Reported) Cholecalciferol (Vitamin D3) 2,000 Unit Capsule, 2,000 UNIT PO DAILY, (Reported) Clotrimazole/Betamethasone Dip 15 Gm Cream..g., 1 APPLIC TOP BID PRN for RASH, (Reported) Fluticasone Propionate 16 Gm [place].susp, 1 SPRAY NS HS, (Reported) Fluticasone/Salmeterol 1 Each Blst.w.dev, 1 PUFF IH BID, (Reported) Folic Acid/Mv,Fe,Other Min 1 Each Tablet, 1 TAB PO DAILY, (Reported) Furosemide 40 Mg Tablet, 40 MG PO BID, (Reported) Ipratropium/Albuterol Sulfate 3 Ml Ampul.neb, 3 ML NEB QID PRN for SHORTNESS OF BREATH, (Reported) Loratadine/Pseudoephedrine 1 Each Tab.er.12h, 1 TAB PO BID PRN for CONGESTION, (Reported) Metoprolol Tartrate 50 Mg Tablet, 50 MG PO BID, (Reported) Potassium Chloride 10 Meq Tablet.er, 10 MEQ PO DAILY, (Reported) Sodium Chloride 30 Ml [place], 1-2 SPRAYS NS QID PRN for DRY NOSE, (Reported) Tiotropium [place] 4 Gm Mist.inhal, 2 PUFF INH DAILY, (Reported) Patient Home Medication List Home Medication List Reviewed: Yes Physical Exam-Cardiology Physical Exam Vital Signs/I&O 05/17/19 05/17/19 05/17/19 05/17/19 09:33 09:33 12:38 12:55 Temp 37.2 36.0 Pulse 101 93 95 Resp 30 15 24 B/P (MAP) 122/79 (93) 125/87 115/73 Pulse Ox 91 96 90 O2 Delivery Nasal Cannula Nasal Cannula Nasal Cannula Nasal Cannula O2 Flow Rate 3.0 3.00 3.00 05/17/19 05/17/19 14:04 14:07 Pulse 85 Pulse Ox 92 O2 Delivery Room Air Capillary Refill : Less Than 3 Seconds Constitutional: AAO x 3, well-developed, well-nourished HEENT: PERRL, other (dried blood inside nares bilat), hearing is well preserved Neck: carotid pulses are 2 + bilaterally Respiratory: No accessory muscle use, No respiratory distress; chest expansion is symmetric, chest is bilaterally symmetric, rhonchi (scattered), other (good air entry) Cardiovascular: irregularly irregular; No JVD; S1 and S2 Gastrointestinal: No tender; soft, round, audible bowel sounds Extremities: swelling (bilat pitting edema) Neurologic/Psychiatric: grossly intact (moves all extremities) Skin: other (abrasion, approx the size of a quarter, to the palm of her left hand, below the thumb; multiple brusies/abrasions to her arms bilat) Data Review Labs Laboratory Tests 05/17/19 09:40: White Blood Count 6.6, Red Blood Count 3.55L, Hemoglobin 10.2L, Hematocrit 34L, Mean Corpuscular Volume 95, Mean Corpuscular Hemoglobin 29, Mean Corpuscular Hemoglobin Concent 30L, Red Cell Distribution Width 16.9H, Platelet Count 255, Mean Platelet Volume 10.9H, Neutrophils (%) (Auto) 86H, Lymphocytes (%) (Auto) 8L, Monocytes (%) (Auto) 5, Eosinophils (%) (Auto) 1, Basophils (%) (Auto) 0, Neutrophils # (Auto) 5.7, Lymphocytes # (Auto) 0.5L, Monocytes # (Auto) 0.3, Eosinophils # (Auto) 0.1, Basophils # (Auto) 0.0, Neutrophils % (Manual) 85, Lymphocytes % (Manual) 6, Monocytes % (Manual) 4, Eosinophils % (Manual) 2, Basophils % (Manual) 1, Band Neutrophils 2, Poikilocytosis SLIGHT, Anisocytosis SLIGHT, Elliptocytes SLIGHT, Prothrombin Time 23.2H, INR Comment 2.0H, Activated Partial Thromboplast Time 37H, Sodium Level 139, Potassium Level 4.8, Chloride Level 99, Carbon Dioxide Level 22, Anion Gap 18H, Blood Urea Nitrogen 30H, Creatinine 1.87H, Estimat Glomerular Filtration Rate 33, BUN/Creatinine Ratio 16, Glucose Level 127H, Calcium Level 9.5, Corrected Calcium 9.3, Magnesium Level 2.1, Total Bilirubin 1.6H, Aspartate Amino Transf (AST/SGOT) 45H, Alanine Aminotransferase (ALT/SGPT) 32, Alkaline Phosphatase 86, Myoglobin 158.7H, Troponin I 0.062H, B-Type Natriuretic Peptide 1027.5H, Total Protein 7.4, Albumin 4.3, Lipase 24 A/P-Cardiology Assessment/Admission Diagnosis Multifactorial shortness of breath (see below) Card cath of 04/12/19: normal cors, LVEF 50%, LVEDP 17 mmHg, no significant MR on this study H/O nonischemic cardiomyopathy with an ejection fraction between 30 and 35% on serial echocardiograms previously. Most recent echocardiogram of Mar 24, 2019 shows LVEF 50-55%, LA mild to mod dilated; Mod-severe MR and TR. PASP 60mmHg. Most recent echo of May 08, [address] Pritchett showed LVEF 55-65%. Concentric LVH. Grade 2 diastolic dysfuncton. LA mild to mod dilated. Severe MR and TR. PASP 70-75mmHg. Acute on chronic systolic and diastolic CHF due to nonischemic cardiomyopathy Type 2 LA likely secondary to transient hypoxia and acute on chronic renal dz Syncopal episode of undetermined etiology (May 06, 2019 per pt report). Device interrogation of 05/17/19 did not any significant arrhythmia that might account for syncope Anemia of undetermined etiology (possibly due to CKD) managed by the Med Svce Intolerance to ORAL-inhib / ARB due to worsening renal function Suspected sarcoidosis, followed by Dr Rose. 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 Rose dance artist S/p dual chamber ICD, pulse generator change out on 09-22-18 and subsequent superficial dehiscence at the device insertion site that healed by secondary intention. Device functioning normally per interrogation of Feb 2019 Paroxysmal atrial flutter with an intermittent rapid ventricular response. In 2012, she received one shock ICD for atrial flutter but has not has not received any since. Interrogation of 05/17/19 shows brief episodes of A Fl but with good rate control Intolerance to digoxin (results in N/V and poor apetite) Chronic LBBB CKD-4, being followed by Dr Huff History of bronchial asthma, managed by Dr Rose Chronic anticoagulation with Eliquis therapy for stroke prophylaxis. Obesity-hypoventilation syndrome and MAXIM, treated with CPAP, but she is noncompliant H/o pulm hypertension on echo studies of 2011,2012, 2013, echo studies of 2015 and 2017 had shown PASP approx 30-35 mmHg. Most recent echo of Mar 2019 showed PASP 60mmHg Mild carotid dz per u/s of Mar 2019 Discussion and Recomendations Complex management issue IV Lasix to tx decompensated HF Replace electrolytes Continue home medications Check ortho v/s Further recs will be based on her hospital course We would like to thank medical services for this consult Clinical Quality Measures AMI/AHF: ASA po Prior to arrival: Yes DVT/VTE Risk/Contraindication: Risk Factor Score Per Nursin RFS Level Per Nursing on Admit: 4+=Very High HENRY SMITH MD FACP FAC CCDS May 17, 2019 17:06
[2019-05-17] MEDS ORDERED: FUROSEMIDE 40 MG/4 ML INJ (LASIX) IV SCH (18:00)
[2019-05-17 19:56] VITALS: BP 104/65
[2019-05-17] MEDS: meTOprolol TARTRATE 50 MG (LOPRESSOR) TAB PO SCH (20:05)
[2019-05-17] MEDS: APIXABAN 5 MG (ELIQUIS) TABLET PO SCH (20:05)
[2019-05-17 23:52] VITALS: BP 102/61
[2019-05-18] MEDS ORDERED: RT-ALBUTEROL/IPRATROPIUM 3 ML (DUONEB) VIAL ONE (03:26)
[2019-05-18] MEDS ORDERED: RT-ALBUTEROL/IPRATROPIUM 3 ML (DUONEB) VIAL INH ONE (03:45)
[2019-05-18 05:00] VITALS: BP 111/79
[2019-05-18] MEDS: CATHETER FLUSH 10 ML SYR IV SCH ×3 (05:07→20:15)
[2019-05-18] MEDS: FUROSEMIDE 40 MG/4 ML INJ (LASIX) IVP SCH ×2 (06:08→16:24)
[2019-05-18] MEDS: RT-ALBUTEROL/IPRATROPIUM 3 ML (DUONEB) VIAL INH SCH ×6 (06:08→21:21)
[2019-05-18 06:10] LABS: BASOPHILS % (AUTO) 0 % (0-10); EOSINOPHILS # (AUTO) 0.1 10^3/uL (0.0-0.3); EOSINOPHILS % (AUTO) 2 % (0-10); HEMATOCRIT 31 % (35-52); HEMOGLOBIN 9.1 G/DL (11.5-16.0); LYMPHOCYTES # (AUTO) 0.6 X 10^3 (1.0-4.0); LYMPHOCYTES % (AUTO) 11 % (12-44); MEAN CORPUSCULAR HEMOGLOBIN 28 PG (25-34); MEAN CORPUSCULAR HGB CONC 30 G/DL (32-36); MEAN CORPUSCULAR VOLUME 94 FL (80-99); MEAN PLATELET VOLUME 10.5 FL (7.4-10.4); MONOCYTES # (AUTO) 0.5 X 10^3 (0.0-1.0); MONOCYTES % (AUTO) 9 % (0-12); NEUTROPHILS # (AUTO) 4.1 X 10^3 (1.8-7.8); NEUTROPHILS % (AUTO) 78 % (42-75); PLATELET COUNT 203 10^3/uL (130-400); RED CELL DISTRIBUTION WIDTH 16.1 % (10.0-14.5); WHITE BLOOD COUNT 5.3 10^3/uL (4.3-11.0)
[2019-05-18 06:36] LABS: ALBUMIN 3.7 GM/DL (3.2-4.5); BILIRUBIN,TOTAL 1.3 MG/DL (0.1-1.0); CALCIUM 9.4 MG/DL (8.5-10.1); CREATININE SERUM 1.95 MG/DL (0.60-1.30); MAGNESIUM 2.1 MG/DL (1.6-2.4); POTASSIUM 3.4 MMOL/L (3.6-5.0); TOTAL PROTEIN 6.6 GM/DL (6.4-8.2)
[2019-05-18] MEDS ORDERED: KCL 10 MEQ TAB (MICRO K) PO SCH (07:00)
[2019-05-18 07:33] VITALS: BP 115/64
[2019-05-18 07:35] VITALS: BP_SYST 110; BP_SYST 115; BP_DIAS 64
[2019-05-18] MEDS ORDERED: ASPIRIN E.C. 81 MG (ECOTRIN) TAB PO SCH (09:00)
[2019-05-18] MEDS: AMIODARONE 200 MG (CORDARONE) TAB PO SCH (09:01)
[2019-05-18] MEDS: APIXABAN 5 MG (ELIQUIS) TABLET PO SCH ×2 (09:01→20:14)
[2019-05-18] MEDS: meTOprolol TARTRATE 50 MG (LOPRESSOR) TAB PO SCH ×2 (09:01→20:14)
[2019-05-18] MEDS ORDERED: KCL 20 MEQ TAB (K-DUR) PO ONE (09:45)
--- NOTE | 2019-05-18 10:05 | Progress Note - Cardiology ---
Cardiology SOAP Progress Note Subjective: Lying in bed. States she feels her LE swelling has improved somewhat. Continues to report mild to mod dyspnea. No c/o dizziness, syncope or near syncope. Frequent cough, non-productive. Objective: I&O/Vital Signs 05/17/19 05/18/19 05/18/19 05/18/19 23:52 00:45 03:33 05:00 Temp 36.3 36.6 Pulse 96 98 101 Resp 20 20 B/P (MAP) 102/61 (75) 111/79 (90) Pulse Ox 97 97 97 O2 Delivery Nasal Cannula Nasal Cannula Nasal Cannula O2 Flow Rate 3.00 3.00 3.00 05/18/19 05/18/19 05/18/19 05/18/19 07:00 07:33 07:35 08:18 Temp 36.1 Pulse 100 98 Resp 20 B/P (MAP) 115/64 (81) 115/64 (81) 110/64 (79) Pulse Ox 98 91 O2 Delivery Nasal Cannula Nasal Cannula O2 Flow Rate 3.00 3.00 05/18/19 00:00 Intake Total 1450 ml Output Total 1200 ml Balance 250 ml Weight (Pounds): 243 Weight (Ounces): 0.2 Weight (Calculated Kilograms): 97.884416 Constitutional: AAO x 3, well-developed, well-nourished Respiratory: No accessory muscle use, No respiratory distress; chest expansion is symmetric, chest is bilaterally symmetric, rhonchi (scattered), other (good air entry) Cardiovascular: irregularly irregular; No JVD; S1 and S2 Gastrointestional: No tender; soft, round, audible bowel sounds Extremities: swelling (bilat pitting edema) Neurologic/Psychiatric: grossly intact (moves all extremities) Skin: other (abrasion, approx the size of a quarter, to the palm of her left hand, below the thumb; multiple brusies/abrasions to her arms bilat) Results/Procedures: Labs Laboratory Tests 05/18/19 05:45: White Blood Count 5.3, Red Blood Count 3.23L, Hemoglobin 9.1L, Hematocrit 31L, Mean Corpuscular Volume 94, Mean Corpuscular Hemoglobin 28, Mean Corpuscular Hemoglobin Concent 30L, Red Cell Distribution Width 16.1H, Platelet Count 203, Mean Platelet Volume 10.5H, Neutrophils (%) (Auto) 78H, Lymphocytes (%) (Auto) 11L, Monocytes (%) (Auto) 9, Eosinophils (%) (Auto) 2, Basophils (%) (Auto) 0, Neutrophils # (Auto) 4.1, Lymphocytes # (Auto) 0.6L, Monocytes # (Auto) 0.5, Eosinophils # (Auto) 0.1, Basophils # (Auto) 0.0, Sodium Level 139, Potassium Level 3.4L, Chloride Level 97L, Carbon Dioxide Level 28, Anion Gap 14, Blood Urea Nitrogen 35H, Creatinine 1.95H, Estimat Glomerular Filtration Rate 31, BUN/Creatinine Ratio 18, Glucose Level 100, Calcium Level 9.4, Corrected Calcium 9.6, Magnesium Level 2.1, Total Bilirubin 1.3H, Aspartate Amino Transf (AST/SGOT) 22, Alanine Aminotransferase (ALT/SGPT) 25, Alkaline Phosphatase 78, Total Protein 6.6, Albumin 3.7, Triglycerides Level 66, Cholesterol Level 127, LDL Cholesterol Direct 83, VLDL Cholesterol 13, HDL Cholesterol 40 A/P: Assessment: Multifactorial shortness of breath (see below) Card cath of 04/12/19: normal cors, LVEF 50%, LVEDP 17 mmHg, no significant MR on this study H/O nonischemic cardiomyopathy with an ejection fraction between 30 and 35% on serial echocardiograms previously. Most recent echocardiogram of Mar 24, 2019 shows LVEF 50-55%, LA mild to mod dilated; Mod-severe MR and TR. PASP 60mmHg. Most recent echo of May 08, [address] Pritchett showed LVEF 55-65%. Concentric LVH. Grade 2 diastolic dysfuncton. LA mild to mod dilated. Severe MR and TR. PASP 70-75mmHg. Acute on chronic systolic and diastolic CHF due to nonischemic cardiomyopathy Type 2 HI likely secondary to transient hypoxia and acute on chronic renal dz Syncopal episode of undetermined etiology (May 06, 2019 per pt report). Device interrogation of 05/17/19 did not any significant arrhythmia that might account for syncope Anemia of undetermined etiology (possibly due to CKD) managed by the [facility] [place] Intolerance to ORAL-inhib / ARB due to worsening renal function Suspected sarcoidosis, followed by Dr Rose. 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 Device functioning normally per interrogation of Feb 2019 Paroxysmal atrial flutter with an intermittent rapid ventricular response. In July 2012, she received one shock ICD for atrial flutter but has not has not received any since. Interrogation of 05/17/19 shows brief episodes of A Fl but with good rate control Intolerance to digoxin (results in N/V and poor apetite) Chronic LBBB CKD-4, being followed by Dr Huff History of bronchial asthma, managed by Dr Rose Chronic anticoagulation with Eliquis therapy for stroke prophylaxis. Obesity-hypoventilation syndrome and MAXIM, treated with CPAP, but she is noncompliant H/o pulm hypertension on echo studies of 2011,2012, 2013, echo studies of 2015 and 2017 had shown PASP approx 30-35 mmHg. Most recent echo of Mar 2019 showed PASP 60mmHg Mild carotid dz per u/s of Mar 2019 Plan: Complex management issue Continue IV Lasix to tx decompensated HF Fluid restriction Replace electrolytes Monitor lab Clinical Quality Measures AMI/AHF: ASA po Prior to arrival: Yes VIRGIL CORNEJO May 18, 2019 10:05
[2019-05-18] MEDS ORDERED: SALINE NASAL SPRAY (OCEAN) 45 ML BTL NS PRN (10:15)
[2019-05-18] MEDS ORDERED: ACETAMINOPHEN 325 MG TABLET PO PRN (10:15)
--- NOTE | 2019-05-18 10:43 | History & Physical-Hospitalist ---
History of Present Illness HPI/Chief Complaint Malathi Hurley is a 68-year-old female with a past medical history of heart failure, chronic kidney disease, COPD, atrial fibrillation, who presented with shortness of breath. She reports that she had increasing swelling in her legs. She also reports that she is having some orthopnea and PND. She denies any fevers or chills. She denies any cough. She reports that her nose has been congested. She has had ongoing issues with epistaxis. She denies any abdominal pain, nausea, vomiting, or diarrhea. She denies any dysuria. Source: patient Exam Limitations: no limitations Date Seen 05/18/19 Time Seen by a Provider: 07:55 Attending Physician Jyothi Tony MD PCP Carlos Castellano MD Referring Physician Date of Admission May 17, 2019 at 12:24 Home Medications & Allergies Home Medications Reviewed patient Home Medication Reconciliation performed by pharmacy medication reconciliations orthotic finish grinding technician and/or nursing. Patients Allergies have been reviewed. Allergies Allergies Coded Allergies No Known Drug Allergies (Unverified11/03/11) Past Dusgxdc-Vuwrjd-Nmjqli Hx Past Med/Social Hx: Reviewed Nursing Past Med/Soc Hx Patient Social History Alcohol Use: Rarely Uses Number of Drinks Today: 0 Recreational Drug Use: No Smoking Status: Never a Smoker 2nd Hand Smoke Exposure: No Physical Abuse Screen: No Sexual Abuse: No Recent Foreign Travel: No Contact w/other who traveled: No Recent Hopitalizations: Yes (pneumonia 03/2019) Recent Infectious Disease Expo: No Immunizations Up To Date Date of Influenza Vaccine: Feb 06, 2012 Seasonal Allergies Seasonal Allergies: Yes Past Medical History Surgeries: Appendectomy, Defibrillator, Hysterectomy Respiratory: COPD, Pneumonia, Sleep Apnea Sarcoidosis Currently Using CPAP: Yes (WITH O2) Currently Using BIPAP: No Cardiac: Atrial Fibrillation, Cardiomyopathy, Hypertension PHTN Reproductive: Yes Sexually Transmitted Disease: No HIV/AIDS: No Genitourinary: Renal Failure Loss of Vision: Denies History of Blood Disorders: No Adverse Reaction to Blood [place]: No Family History Reviewed Nursing Family Hx Patient reports no known family medical history. No Pertinent Family Hx Review of Systems Constitutional: no symptoms reported EENTM: no symptoms reported Respiratory: short of breath Cardiovascular: no symptoms reported Gastrointestinal: no symptoms reported Genitourinary: no symptoms reported Musculoskeletal: no symptoms reported Skin: no symptoms reported Psychiatric/Neurological: No Symptoms Reported Physical Exam Physical Exam Vital Signs Vital Signs - First Documented 05/17/19 09:33 Temp 37.2 Pulse 101 Resp 30 B/P (MAP) 122/79 (93) Pulse Ox 91 O2 Delivery Nasal Cannula O2 Flow Rate 3.0 Capillary Refill : Less Than 3 Seconds Height, Weight, BMI Height: 5'5.00" Weight: 243lbs. 0.2oz. 97.430660gn; 40.53 BMI Method:Stated General Appearance: No Apparent Distress, Anxious, Obese HEENT: PERRL/EOMI, Pharynx Normal Neck: Normal Inspection, Supple Respiratory: Lungs Clear, Normal Breath Sounds, No Respiratory Distress Cardiovascular: Regular Rate, Rhythm, No Murmur Gastrointestinal: Normal Bowel Sounds, Non Tender, Soft Extremity: Normal Inspection, Non Tender, Pedal Edema Neurologic/Psychiatric: Alert, Oriented x3, No Motor/Sensory Deficits, Normal Mood/Affect Skin: Normal Color, Warm/Dry Lymphatic: No Adenopathy Results Results/Procedures Labs Laboratory Tests 05/17/19 09:40 05/18/19 05:45 Patient resulted labs reviewed. Imaging: Reviewed Imaging Report Assessment/Plan Admission Diagnosis Acute on chronic heart failure with preserved ejection fraction Admission Status: Observation Assessment and Plan Acute on chronic heart failure with preserved ejection fraction Chronic respiratory failure with hypoxia Chest x-ray with congestion, stable from prior BNP elevated at 1000, appears to be at baseline Troponin mildly elevated, appears chronic due to heart failure and kidney disease Requiring baseline oxygen supplementation Cardiology consulted, appreciate recommendations Continue IV Lasix Nutrition consulted for heart failure diet education Debility PT/OT consulted Nasal congestion [place] nasal spray Acute kidney injury superimposed on chronic kidney disease Creatinine increased at 1.95, baseline appears to be around 1.6 IV diuresis Paroxysmal atrial fibrillation Continue metoprolol, amiodarone, and Eliquis COPD without acute exacerbation Continue home meds Morbid obesity Clinically significant, in no acute management needs Diagnosis/Problems Diagnosis/Problems (1) Acute on chronic heart failure with preserved ejection fraction Status: Acute Clinical Quality Measures AMI/AHF: ASA po Prior to arrival: Yes DVT/VTE Risk/Contraindication: Risk Factor Score Per Nursin RFS Level Per Nursing on Admit: 4+=Very High JYOTHI TONY MD May 18, 2019 10:43
--- NOTE | 2019-05-18 11:26 | Occupational Therapy Eval ---
OT Evaluation-General/PLF Medical Diagnosis Admission Date May 17, 2019 at 12:24 Medical Diagnosis: CHF Onset Date: May 17, 2019 Therapy Diagnosis Therapy Diagnosis: weakness/impaired ADLs Height/Weight Height (Feet): 5 Height (Inches): 5.00 Weight (Pounds): 243 Weight (Ounces): 0.2 Precautions Precautions/Isolations: Standard Precautions Referral Physician: Maggie Referral Reason: Activity Tolerance, Self Care, Evaluation/Treatment, Strengthening/ROM Medical History Pertinent Medical History: Atrial Fib, COPD, HTN Current History Pt was recently admitted to the hospital on 05/07/19 and discharged on 05/10/19. Pt states she began to have BLE swelling and came to the ED yesterday and she was admitted to the hospital. Social History Home: Single Level Current Living Status: Spouse ADL-Prior Level of Function SCALE: Activities may be completed with or without assistive devices. 9-Wicrywrajk-nxpcbcj completes the activity by him/herself with no assistance from a helper. 5-Set-up or Clean-up Assistance-helper sets up or cleans up; patient completes activity. [place] assists only prior to or following the activity. 4-Supervision or Touching Assistance-helper provides verbal cues and/or touch ing/steadying and/or contact guard assistance as patient completes activity. Assistance may be provided throughout the activity or intermittently. 3-Partial/Moderate Assistance-helper does LESS THAN HALF the effort. [place] lifts, holds or supports trunk or limbs, but provides less than half the effort. 2-Substantial/Maximal Assistance-helper does MORE THAN HALF the effort. [place] lifts or holds trunk or limbs and provides more than half the effort. 9-Uorivuikn-nrbiub does ALL the effort. Patient does none of the effort to complete the activity. Or, the assistance of 2 or more helpers is required for the patient to complete the activity. If activity was not attempted, code reason: 7-Patient Refused. 9-Not Applicable-not attempted and the patient did not perform the activity before the current illness, exacerbation or injury. 10-Not Attempted due to Environmental Limitations-(lack of equipment, weather restraints, etc.). 88-Not Attempted due to Medical Conditions or Safety Concerns. ADL PLOF Comments Pt reports she is able to complete all ADLs at home and simple cooking/cleaning. She knows that she needs rest breaks throughout the day and with tasks. Self Care: Independent Functional Cognition: Independent DME/Equipment: Tub/Shower DME/Equipment Comments Pt has home O2 (3L), she denies needing a walker or a cane but expressed that she would like to look into getting a 4WW. OT Current Status Subjective Pt seating in recliner at start of session, agreeable to OT evaluation Mental Status/Objective Patient Orientation: Person, Place, Time, Situation Attachments: Oxygen Current Glasses/Contacts: Yes Hearing Aids: No Dentures/Partials: No Hand Dominance: Right Upper Extremity ROM WFL, BUE shoulder flexion to approx 140 degrees, she is able to touch the back of her head. Upper Extremity Strength grossly 4/5 Other Treatments Pt sitting upright in recliner, provided information about PLOF and home set up. Pt expressed that she would like to look into getting a 4WW. She also states she has been looking into getting a chair for her shower but she may need to go to [place] to get what she is looking for. OT educated pt on benefits of bath chair vs bath bench. Pt also said she has thought about getting a walk in tub, but she has heard they can be expensive. Education OT Patient Education: Correct positioning, Energy conservation, Modified ADL techniques, Progress toward Goal/Update tx plan, Purpose of tx/functional activities, Use of adapted equipment Teaching Recipient: Patient Teaching Methods: Discussion Response to Teaching: Verbalize Understanding OT Manager Country Goals Manager Country Goals Time Frame: May 28, 2019 Eating (QC): 6 Oral Hygiene (QC): 6 Toileting Hygiene (QC): 6 Shower/Bathe Self (QC): 6 Upper Body Dressing (QC): 6 Lower Body Dressing (QC): 6 On/Off Footwear (QC): 6 Additional Goals: 1-Demonstrate ADL Tasks, 2-Verbalize Understanding, 3-Impr oveStrength/Rufina 1=Demonstrate adherence to instructed precautions during ADL tasks. 2=Patient will verbalize/demonstrate understanding of assistive devices/modifications for ADL. 3=Patient will improve strength/tolerance for activity to enable patient to perform ADL's. OT Education/Plan Problem List/Assessment Assessment: Decreased Activ Tolerance, Decreased UE Strength, Impaired I ADL's, Impaired Self-Care Skills Discharge Recommendations Plan/Recommendations: Continue POC Treatment Plan/Plan of Care Treatment,Training & Education: Yes Patient would benefit from OT for education, treatment and training to promote independence in ADL's, mobility, safety and/or upper extremity function for ADL's. Plan of Care: ADL Retraining, Functional Mobility, UE Funct Exercise/Act Treatment Duration: May 28, 2019 Frequency: 5 times per week Estimated Hrs Per Day: .25 hour per day Agreement: Yes Rehab Potential: Fair Time/GCodes Start Time: 10:55 Stop Time: 11:07 Total Time Billed (hr/min): 12 Billed Treatment Time 1, GHULAM RICE OT May 18, 2019 11:26
--- NOTE | 2019-05-18 11:54 | Progress Note - Cardiology ---
Cardiology SOAP Progress Note Subjective: Still having intermittent nose bleeds Mouth remains dry, leading to consumption of large amounts of water No cp Shortness of breath as before Leg swelling as before No palp or syncope since adm Objective: I&O/Vital Signs 05/17/19 05/18/19 05/18/19 05/18/19 23:52 00:45 03:33 05:00 Temp 36.3 36.6 Pulse 96 98 101 Resp 20 20 B/P (MAP) 102/61 (75) 111/79 (90) Pulse Ox 97 97 97 O2 Delivery Nasal Cannula Nasal Cannula Nasal Cannula O2 Flow Rate 3.00 3.00 3.00 05/18/19 05/18/19 05/18/19 05/18/19 07:00 07:33 07:35 08:18 Temp 36.1 Pulse 100 98 Resp 20 B/P (MAP) 115/64 (81) 115/64 (81) 110/64 (79) Pulse Ox 98 91 O2 Delivery Nasal Cannula Nasal Cannula O2 Flow Rate 3.00 3.00 05/18/19 05/18/19 09:00 11:29 Pulse Ox 94 O2 Delivery Nasal Cannula Nasal Cannula O2 Flow Rate 3.00 3.00 05/18/19 00:00 Intake Total 1450 ml Output Total 1200 ml Balance 250 ml Weight (Pounds): 243 Weight (Ounces): 0.2 Weight (Calculated Kilograms): 97.776562 Constitutional: AAO x 3, well-developed, well-nourished Respiratory: No accessory muscle use, No respiratory distress; chest expansion is symmetric, chest is bilaterally symmetric, rhonchi (scattered), other (good air entry) Cardiovascular: irregularly irregular; No JVD; S1 and S2 Gastrointestional: No tender; soft, round, audible bowel sounds Extremities: swelling (bilat pitting edema) Neurologic/Psychiatric: grossly intact (moves all extremities) Skin: other (abrasion, approx the size of a quarter, to the palm of her left hand, below the thumb; multiple brusies/abrasions to her arms bilat) Results/Procedures: Labs Laboratory Tests 05/18/19 05:45: White Blood Count 5.3, Red Blood Count 3.23L, Hemoglobin 9.1L, Hematocrit 31L, Mean Corpuscular Volume 94, Mean Corpuscular Hemoglobin 28, Mean Corpuscular Hemoglobin Concent 30L, Red Cell Distribution Width 16.1H, Platelet Count 203, Mean Platelet Volume 10.5H, Neutrophils (%) (Auto) 78H, Lymphocytes (%) (Auto) 11L, Monocytes (%) (Auto) 9, Eosinophils (%) (Auto) 2, Basophils (%) (Auto) 0, Neutrophils # (Auto) 4.1, Lymphocytes # (Auto) 0.6L, Monocytes # (Auto) 0.5, Eosinophils # (Auto) 0.1, Basophils # (Auto) 0.0, Sodium Level 139, Potassium Level 3.4L, Chloride Level 97L, Carbon Dioxide Level 28, Anion Gap 14, Blood Urea Nitrogen 35H, Creatinine 1.95H, Estimat Glomerular Filtration Rate 31, BUN/Creatinine Ratio 18, Glucose Level 100, Calcium Level 9.4, Corrected Calcium 9.6, Magnesium Level 2.1, Total Bilirubin 1.3H, Aspartate Amino Transf (AST/SG OT) 22, Alanine Aminotransferase (ALT/SGPT) 25, Alkaline Phosphatase 78, Total Protein 6.6, Albumin 3.7, Triglycerides Level 66, Cholesterol Level 127, LDL Cholesterol Direct 83, VLDL Cholesterol 13, HDL Cholesterol 40 Laboratory Tests 05/17/19 09:40 05/18/19 05:45 A/P: Assessment: Multifactorial shortness of breath (see below) Card cath of 04/12/19: normal cors, LVEF 50%, LVEDP 17 mmHg, no significant MR on this study H/O nonischemic cardiomyopathy with an ejection fraction between 30 and 35% on serial echocardiograms previously. Most recent echocardiogram of Mar 24, 2019 shows LVEF 50-55%, LA mild to mod dilated; Mod-severe MR and TR. PASP 60mmHg. Most recent echo of May 08, [address] Pritchett showed LVEF 55-65%. Concentric LVH. Grade 2 diastolic dysfuncton. LA mild to mod dilated. Severe MR and TR. PASP 70-75mmHg. Acute on chronic systolic and diastolic CHF due to nonischemic cardiomyopathy Type 2 IA likely secondary to transient hypoxia and acute on chronic renal dz Syncopal episode of undetermined etiology (May 06, 2019 per pt report). Device interrogation of 05/17/19 did not any significant arrhythmia that might account for syncope Anemia of undetermined etiology (possibly due to CKD) [place] [facility] [place] to ORAL-inhib / ARB due to worsening renal function Suspected sarcoidosis, followed by Dr Rose. 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 Device functioning normally per interrogation of Feb 2019 Paroxysmal atrial flutter with an intermittent rapid ventricular response. In July 2012, she received one shock ICD for atrial flutter but has not has not received any since. Interrogation of 05/17/19 shows brief episodes of A Fl but with good rate control Intolerance to digoxin (results in N/V and poor apetite) Chronic LBBB CKD-4, being followed by Dr Huff History of bronchial asthma, managed by Dr Rose Chronic anticoagulation with Eliquis therapy for stroke prophylaxis. Frequent epistaxis Obesity-hypoventilation syndrome and MAXIM, treated with CPAP, but she is nonc ompliant H/o pulm hypertension on echo studies of 2011,2012, 2013, echo studies of 2015 and 2017 had shown PASP approx 30-35 mmHg. Most recent echo of Mar 2019 showed PASP 60mmHg Mild carotid dz per u/s of Mar 2019 Plan: Complex management issue Continue IV Lasix to tx decompensated HF She is consuming large amoutns of fluid. We have advised fluid restriction Because nose bleeds is a significant problem for her and because she does not have significant CAD and is on Eliquis, we have stopped ASA. Consider reducing Eliquis if nose bleeds continue Replace electrolytes Monitor lab Clinical Quality Measures AMI/AHF: ASA po Prior to arrival: Yes HENRY SMITH MD FACP FAC CCDS May 18, 2019 11:53
[2019-05-18 12:00] VITALS: BP 105/63
[2019-05-18] MEDS ORDERED: SALINE NASAL SPRAY (OCEAN) 45 ML BTL SCH (13:00)
--- NOTE | 2019-05-18 13:50 | Physical Therapy Evaluation ---
PT Evaluation-General Medical Diagnosis Admission Date May 17, 2019 at 12:24 Medical Diagnosis: CHF Onset Date: May 17, 2019 Therapy Diagnosis Therapy Diagnosis: Debility; deconditioning Height/Weight Height (Feet): 5 Height (Inches): 5.00 Weight (Pounds): 243 Weight (Ounces): 0.2 Precautions Precautions/Isolations: Standard Precautions Weight Bear Status Right Lower Extremity: Right Weight Bearing/Tolerated Left Lower Extremity: Left Weight Bearing/Tolerated Referral Physician: Maggie Reason for Referral: Evaluation/Treatment Medical History Pertinent Medical History: Atrial Fib, COPD, HTN, Renal Insufficiency Additional Medical History previous hospital stay 05/07-05/10 Current History ER with SOA and CP Reviewed History: Yes Social History Home: Single Level Current Living Status: Spouse Prior Prior Level of Function SCALE: Activities may be completed with or without assistive devices. 3-Pgicjievts-lkpcvze completes the activity by him/herself with no assistance from a helper. 5-Set-up or Clean-up Assistance-helper sets up or cleans up; patient completes activity. [place] assists only prior to or following the activity. 4-Supervision or Touching Assistance-helper provides verbal cues and/or touching /steadying and/or contact guard assistance as patient completes activity. Assistance may be provided throughout the activity or intermittently. 3-Partial/Moderate Assistance-helper does LESS THAN HALF the effort. [place] lifts, holds or supports trunk or limbs, but provides less than half the effort. 2-Substantial/Maximal Assistance-helper does MORE THAN HALF the effort. [place] lifts or holds trunk or limbs and provides more than half the effort. 7-Nihmbljge-ffpukh does ALL the effort. Patient does none of the effort to complete the activity. Or, the assistance of 2 or more helpers is required for the patient to complete the activity. If activity was not attempted, code reason: 7-Patient Refused. 9-Not Applicable-not attempted and the patient did not perform the activity before the current illness, exacerbation or injury. 10-Not Attempted due to Environmental Limitations-(lack of equipment, weather restraints, etc.). 88-Not Attempted due to Medical Conditions or Safety Concerns. Bed Mobility: 6 Transfers (B,C,W/C): 6 Gait: 6 Indoor Mobility (Ambulation): Independent Prior Devices Use: None PT Evaluation-Current Subjective 68 y.o. female with history of COPE, a-fib, HTN, and renal insufficiency presented to the ER with SOA and CP. Patient was previously in the hospital 05/07/19 to 05/10/19. Objective Patient Orientation: Person, Place, Time, Situation Attachments: Oxygen (2L resting 3L with activity) ROM/Strength ROM Lower Extremities WFL bilateral Strength Lower Extremities WFL bilateral Integumentary/Posture Bowel Incontinence: No Bladder Incontinence: No Neuromuscular (Tone, Coordination, Reflexes) Normal Sensory Vision: Functional Hearing: Functional Hand Dominance: Right Sensation Right Lower Extremit: Intact Sensation Left Lower Extremity: Intact Transfers Sit to Stand (QC): 5 Gait Does the Patient Walk?: Yes Mode of Locomotion: Walk Anticipated Mode of Locomotion: Walk Walk 10 feet (QC): 4 Walk 50 ft with 2 Turns(QC): 4 Walk 150 ft (QC): 4 Distance: 200' with frequent rest breaks due to SOA; O2 stats >96 Gait Assistive Device: FWW Wheelchair Training Does the Pt Use a Wheelchair?: No Stairs 1 Step (curb) (QC): 9 4 Steps (QC): 9 12 Steps (QC): 9 Balance Sitting Static: Normal Sitting Dynamic: Normal Standing Static: Normal Standing Dynamic: Normal Assessment/Needs Patient is able to get around well but is limited by her SOA. During ambulation patient needed frequent rest breaks due to SOA, O2 states remained >96 while ambulating. Rehab Potential: Fair Post Rehab Potential-Barriers: SOA due to COPD Equipment Needs Walker for energy conservation PT Short Term Goals Short Term Goals Time Frame: May 21, 2019 Roll Left & Right: 5 Sit to lyin Lying to sitting on side of be: 5 Sit to stand: 6 Chair/mil-qi-eiikz transfer: 4 Toilet transfer: 4 Car transfer: 4 Walk 10 feet: 6 Walk 50 feet with two turns: 6 Walk 150 feet: 6 Walking 10ft on uneven surface: 4 1 step (curb): 9 4 steps: 9 12 steps: 9 Does pt use a wc or scooter: No PT Crop Specialist Goals Crop Specialist Goals PT Crop Specialist Goals Time Frame: May 25, 2019 Roll Left & Right (QC): 6 Sit to Lying (QC): 6 Lying-Sitting on Side/Bed(QC): 6 Sit to Stand (QC): 6 Chair/Fvi-zc-Xjxnz Xfer(QC): 6 Toilet Transfer (QC): 6 Car Transfer (QC): 6 Does the Patient Walk: Yes Walk 10 feet (QC): 6 Walk 50ft with 2 Turns (QC): 6 Walk 150 ft (QC): 6 Walking 10ft on Uneven Surface: 6 1 Step (curb) (QC): 9 4 Steps (QC): 9 12 Steps (QC): 9 Does the Pt use WC or Scooter?: No PT Plan Problem List Problem List: Activity Tolerance, Safety Treatment/Plan Treatment Plan: Continue Plan of Care Treatment Plan: Bed Mobility, Education, Functional Activity Rufina, Functional Strength, Gait, Safety, Therapeutic Exercise, Transfers Treatment Duration: May 25, 2019 Frequency: 6 times per week Estimated Hrs Per Day: .25 hour per day Patient and/or Family Agrees t: Yes Safety Risks/Education Patient Education: Safety Issues Teaching Recipient: Patient discussed with patient different types of walker as patient is planning t buy a walker upon discharge. Time/GCodes Time In: 1317 Time Out: 1338 Total Billed Treatment Time: 21 Total Billed Treatment 1 visit EVM 21 minutes SUZIE ASH PT May 18, 2019 13:50
--- NOTE | 2019-05-18 13:54 | NUR ---
Received consult for dietary education on low-salt diet. Note previous education and handout were given to pt on 05/10/3019 with discussion provided in dietary note. Will continue to follow and reassess as pt needs and status change. Paola Krishna, MS, RD, LD
[2019-05-18 15:56] VITALS: BP 104/67
--- NOTE | 2019-05-18 16:16 | NUR ---
CM/SS visited patient to assess for needs upon discharge. CM/SS discussed the patients recurrent visit into the hospital and how the patient felt she was doing at home. The patient states that she is doing really well at home but does need some help with running errands, grocery shopping, and other things around the house. Her is a manager truck and usually stays in the [place] area; therefore he is not home a lot. The patient does report that she has two sons who live close and help her out when she needs it. CM/SS spoke with the patient about the concern with frequent visit to the hospital and discussed resources such as [facility]. CM/SS will call with the patient tomorrow to set up a meeting. This could provide help with the homemaker services and extra support in the home. Will continue to follow patient.
[2019-05-18] MEDS: KCL 20 MEQ TAB (K-DUR) PO SCH (16:25)
--- NOTE | 2019-05-18 16:45 | NUR ---
REPORT RECEIVED FROM HARRIET LEWIS. ASSUMED CARE OF THE PATIENT AT THIS TIME.
[2019-05-18 20:22] VITALS: BP 118/59
[2019-05-18] MEDS ORDERED: FLUTICASONE NASAL SPRAY (FLONASE) 16 GM BTL NS SCH (21:00)
[2019-05-18] MEDS: RT-ADVAIR HFA 115/21 MCG PER PUFF IH SCH (21:21)
[2019-05-19 00:13] VITALS: BP 98/53
[2019-05-19] MEDS: RT-ALBUTEROL/IPRATROPIUM 3 ML (DUONEB) VIAL INH SCH ×3 (02:24→13:06)
[2019-05-19 04:33] VITALS: BP 109/67
[2019-05-19] MEDS: FUROSEMIDE 40 MG/4 ML INJ (LASIX) IVP SCH (05:52)
[2019-05-19] MEDS: KCL 20 MEQ TAB (K-DUR) PO SCH (05:52)
[2019-05-19] MEDS: CATHETER FLUSH 10 ML SYR IV SCH (05:53)
[2019-05-19 07:00] LABS: HEMOGLOBIN 9.2 G/DL (11.5-16.0); MEAN PLATELET VOLUME 10.6 FL (7.4-10.4); RED CELL DISTRIBUTION WIDTH 16.1 % (10.0-14.5); WHITE BLOOD COUNT 4.3 10^3/uL (4.3-11.0)
[2019-05-19 07:21] LABS: CALCIUM 9.2 MG/DL (8.5-10.1); CREATININE SERUM 1.92 MG/DL (0.60-1.30); MAGNESIUM 2.3 MG/DL (1.6-2.4); POTASSIUM 4.2 MMOL/L (3.6-5.0)
[2019-05-19] MEDS: RT-ADVAIR HFA 115/21 MCG PER PUFF IH SCH (07:29)
[2019-05-19 08:00] VITALS: BP 126/68
[2019-05-19] MEDS ORDERED: UMECLIDINIUM BROMIDE (INCRUSE ELLIPTA) 7'S IH SCH (08:00)
[2019-05-19] MEDS: APIXABAN 5 MG (ELIQUIS) TABLET PO SCH (08:26)
[2019-05-19] MEDS: meTOprolol TARTRATE 50 MG (LOPRESSOR) TAB PO SCH (08:26)
[2019-05-19] MEDS: AMIODARONE 200 MG (CORDARONE) TAB PO SCH (08:26)
--- NOTE | 2019-05-19 11:57 | NUR ---
CM/SS follow up with patient The patient and CM/SS called Nubia Hendricks with [facility] to see if she was able to get resources through them. Nubia stated that the patient would not qualify due to, too high of an income. Nubia suggested that they patient may be able to qualify for Medicaid with division of assets. CM/SS called Aleja in financial services to do a consult with the patient. Aleja reported that she would try and assist with that. The patient is planned to discharge today. No other needs at this time.
--- NOTE | 2019-05-19 13:02 | Progress Note - Cardiology ---
Cardiology SOAP Progress Note Subjective: Nose bleeds have resolved Shortness of breath and leg swelling are better No cp or palp or syncope Gen weakness as before Objective: I&O/Vital Signs 05/19/19 05/19/19 05/19/19 05/19/19 01:00 02:25 04:33 07:00 Temp 36.4 Pulse 101 101 100 Resp 18 B/P (MAP) 109/67 (81) Pulse Ox 94 98 O2 Delivery Nasal Cannula Nasal Cannula O2 Flow Rate 3.00 3.00 05/19/19 05/19/19 05/19/19 05/19/19 07:30 07:35 07:37 08:00 Temp 36.2 Pulse 100 Resp 0 B/P (MAP) 126/68 (87) Pulse Ox 93 96 O2 Delivery Nasal Cannula Nasal Cannula Nasal Cannula Nasal Cannula O2 Flow Rate 3.00 3.00 3.00 3.00 05/19/19 09:00 O2 Delivery Nasal Cannula O2 Flow Rate 3.00 05/19/19 00:00 Intake Total 850 ml Output Total 1250 ml Balance -400 ml Weight (Pounds): 243 Weight (Ounces): 0.2 Weight (Calculated Kilograms): 97.723691 Constitutional: AAO x 3, well-developed, well-nourished Respiratory: No accessory muscle use, No respiratory distress; chest expansion is symmetric, chest is bilaterally symmetric, rhonchi (scattered), other (good air entry) Cardiovascular: irregularly irregular; No JVD; S1 and S2 Gastrointestional: No tender; soft, round, audible bowel sounds Extremities: swelling (bilat pitting edema) Neurologic/Psychiatric: grossly intact (moves all extremities) Skin: other (abrasion, approx the size of a quarter, to the palm of her left hand, below the thumb; multiple brusies/abrasions to her arms bilat) Results/Procedures: Labs Laboratory Tests 05/19/19 06:25: White Blood Count 4.3, Red Blood Count 3.25L, Hemoglobin 9.2L, Hematocrit 31L, Mean Corpuscular Volume 94, Mean Corpuscular Hemoglobin 28, Mean Corpuscular Hemoglobin Concent 30L, Red Cell Distribution Width 16.1H, Platelet Count 228, Mean Platelet Volume 10.6H, Sodium Level 141, Potassium Level 4.2, Chloride Level 100, Carbon Dioxide Level 27, Anion Gap 14, Blood Urea Nitrogen 34H, Creatinine 1.92H, Estimat Glomerular Filtration Rate 32, BUN/Creatinine Ratio 18, Glucose Level 100, Calcium Level 9.2, Magnesium Level 2.3 Laboratory Tests 05/18/19 05:45 05/19/19 06:25 A/P: Assessment: Multifactorial shortness of breath (see below) Card cath of 04/12/19: normal cors, LVEF 50%, LVEDP 17 mmHg, no significant MR on this study H/O nonischemic cardiomyopathy with an ejection fraction between 30 and 35% on serial echocardiograms previously. Most recent echocardiogram of Mar 24, 2019 shows LVEF 50-55%, LA mild to mod dilated; Mod-severe MR and TR. PASP 60mmHg. Most recent echo of May 08, [address] Pritchett showed LVEF 55-65%. Concentric LVH. Grade 2 diastolic dysfuncton. LA mild to mod dilated. Severe MR and TR. PASP 70-75mmHg. Acute on chronic systolic and diastolic CHF due to nonischemic cardiomyopathy Type 2 ND likely secondary to transient hypoxia and acute on chronic renal dz Syncopal episode of undetermined etiology (May 06, 2019 per pt report). Device interrogation of 05/17/19 did not any significant arrhythmia that might account for syncope Anemia of undetermined etiology (possibly due to CKD) managed by the [facility] [place] Intolerance to ORAL-inhib / ARB due to worsening renal function Suspected sarcoidosis, followed by Dr Rose. 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 Device functioning normally per interrogation of Feb 2019 Paroxysmal atrial flutter with an intermittent rapid ventricular response. In July 2012, she received one shock ICD for atrial flutter but has not has not received any since. Interrogation of 05/17/19 shows brief episodes of A Fl but with good rate control Intolerance to digoxin (results in N/V and poor apetite) Chronic LBBB CKD-4, being followed by Dr Huff History of bronchial asthma, managed by Dr Rose Chronic anticoagulation with Eliquis therapy for stroke prophylaxis. Frequent epistaxis Obesity-hypoventilation syndrome and MAXIM, treated with CPAP, but she is noncompliant H/o pulm hypertension on echo studies of 2011,2012, 2013, echo studies of 2015 and 2017 had shown PASP approx 30-35 mmHg. Most recent echo of Mar 2019 showed PASP 60mmHg Mild carotid dz per u/s of Mar 2019 Plan: Complex management issue Change diuretics to oral Advised to avoid large amounts of water intake Because nose bleeds is a significant problem for her and because she does not have significant CAD and is on Eliquis, we have stopped ASA I discussed her case with Dr Serrano, her hospitalist Outpt card f/u is advised Clinical Quality Measures AMI/AHF: ASA po Prior to arrival: Yes HENRY SMITH MD FACP FACC CCDS May 19, 2019 13:02
[2019-05-19 13:25] VITALS: BP 126/68
--- NOTE | 2019-05-19 14:17 | NUR ---
Pt scheduled for pulmonary rehab evaluation; looked up pt's file to see if current PFT in records and to get mailing address to send paperwork
--- NOTE | 2019-05-21 13:15 | Physician Query-Final Dx ---
HILDA EDMONDS 05/21/19 1314: Final Diagnosis Give Final Diagnosis Please give Final Diagnosis STEFFI TONY MD 05/21/19 1527: Final Diagnosis Give Final Diagnosis acute on chronic heart failure with preserved ejection fraction HILDA EDMONDS May 21, 2019 13:14 STEFFI TONY MD May 21, 2019 15:27
--- NOTE | 2019-05-21 15:14 | Discharge Summary ---
Discharge Summary Hospital Course Was the Problem List Reviewed?: Yes Problems/Dx: (1) Acute on chronic heart failure with preserved ejection fraction Status: Acute Hospital Course Date of Admission: May 17, 2019 at 12:24 Admission Diagnosis : acute on chronic heart failure with preserved ejection fraction Family Physician/Provider: Carlos Castellano MD Date of Discharge: 05/21/19 Discharge Diagnosis: acute on chronic heart failure with preserved ejection fraction Hospital Course: Malathi Hurley is a 68-year-old female with history of heart failure who presented with shortness of breath and leg swelling and was admitted with acute on chronic heart failure with preserved ejection fraction. She was treated with IV diuretics and responded appropriately. Cardiology was consulted and assisted with her care. She was on her baseline oxygen requirement at the time of discharge. She was educated regarding a low-salt diet. She was encouraged to weigh herself daily. She was scheduled to follow-up with her primary care physician and cardiology. Labs and Pending Lab Test: Home Meds Active Reported Claritin-D 12 Hour Tablet (Loratadine/Pseudoephedrine) 1 Each Tab.er.12h 1 Tab PO BID PRN Saline Nasal Newell (Sodium Chloride) 30 Ml Newell 1-2 Sprays NS QID PRN Furosemide 40 Mg Tablet 40 Mg PO BID Amiodarone HCl 200 Mg Tablet 200 Mg PO DAILY Iprat-Albut 0.5-3(2.5) mg/3 ml (Ipratropium/Albuterol Sulfate) 3 Ml Ampul.neb 3 Ml NEB QID PRN Advair 250-50 Diskus (Fluticasone/Salmeterol) 1 Each Blst.w.dev 1 Puff IH BID Spiriva Respimat 2.5MCG/ACTUATION (Tiotropium [place]) 4 Gm Mist.inhal 2 Puff INH DAILY Potassium Chloride 10 Meq Tablet.er 10 Meq PO DAILY Allopurinol 100 Mg Tablet 100 Mg PO DAILY Calcitriol 0.25 Mcg Capsule 0.25 Mcg PO MOWEFR One Daily For Women Tablet (Folic Acid/Mv,Fe,Other Min) 1 Each Tablet 1 Tab PO DAILY Clotrimazole-Betamethasone Crm (Clotrimazole/Betamethasone Dip) 15 Gm Cream..g. 1 Applic TOP BID PRN Vitamin D-3 (Cholecalciferol (Vitamin D3)) 2,000 Unit Capsule 2,000 Unit PO DAILY Tylenol (Acetaminophen) 325 Mg Tablet 650 Mg PO Q6H PRN Fluticasone Propionate 16 Gm Newell.susp 1 Newell NS HS Ventolin Hfa (Albuterol Sulfate) 18 Gm Hfa.aer.ad 2 Puff INH QID PRN Metoprolol Tartrate 50 Mg Tablet 50 Mg PO BID Eliquis (Apixaban) 5 Mg Tablet 5 Mg PO BID Cetirizine HCl 10 Mg Tablet 10 Mg PO HS PRN Assessment/Pt Instructions take medications as prescribed. Follow up with her primary care physician. Discharge Planning: <30 minutes discharge planning Discharge Instructions Discharge Diet: Low Sodium Diet Pneumonia Vaccine Order Indica: Yes Consultations Cardiology Discharge Physical Examination Vital Signs Vital Signs Date Time Temp Pulse Resp B/P (MAP) Pulse Ox O2 Delivery O2 Flow Rate FiO2 05/19/19 13:25 36.2 100 18 126/68 96 Nasal Cannula 3.00 General Appearance: No Apparent Distress, WD/WN HEENT: PERRL/EOMI, Pharynx Normal Respiratory: Lungs Clear, Normal Breath Sounds, No Respiratory Distress Cardiovascular: Regular Rate, Rhythm, No Murmur Gastrointestinal: Normal Bowel Sounds, Non Tender, Soft Extremity: Normal Inspection, Non Tender, Pedal Edema Skin: Normal Color, Warm/Dry Neurologic/Psychiatric: Alert, Oriented x3, No Motor/Sensory Deficits, Normal Mood/Affect Allergies: Coded Allergies: No Known Drug Allergies (Unverified , 11/03/11) Discharge Summary Date of Admission May 17, 2019 at 12:24 Date of Discharge May 19, 2019 at 13:25 Discharge Date: May 19, 2019 Discharge Time: 13:25 Admission Diagnosis Acute on chronic heart failure with preserved ejection fraction Consults/Procedures Consulations cardiology Discharge Diagnosis Acute on chronic heart failure with preserved ejection fraction (1) Acute on chronic heart failure with preserved ejection fraction Status: Acute Clinical Quality Measures AMI/AHF: ASA po Prior to arrival: Yes DVT/VTE Risk/Contraindication: Risk Factor Score Per Nursin RFS Level Per Nursing on Admit: 4+=Very High STEFFI TONY MD May 21, 2019 15:14
== END 2019-05-19 13:25 | disposition home or self-care (01) ==
LOC: EDUNIT# 09:32 → ER 09:33 → 4TH 12:24 → INTOOBSV 12:24
PROVIDERS: ADMIT Internal Medicine; ATTEND Internal Medicine
DX: I13.0 Hypertensive heart and chronic kidney disease with heart failure and stage 1 through stage 4 chronic kidney disease, or unspecified chronic kidney disease (principal); I50.23 Acute on chronic systolic (congestive) heart failure; N18.4 Chronic kidney disease, stage 4 (severe); R53.81 Other malaise; R09.81 Nasal congestion; I44.7 Left bundle-branch block, unspecified; I48.0 Paroxysmal atrial fibrillation; J44.9 Chronic obstructive pulmonary disease, unspecified; E66.01 Morbid (severe) obesity due to excess calories; Z68.41 Body mass index [BMI] 40.0-44.9, adult; G47.30 Sleep apnea, unspecified; D86.9 Sarcoidosis, unspecified; I27.20 Pulmonary hypertension, unspecified; Z90.710 Acquired absence of both cervix and uterus; Z79.82 Long term (current) use of aspirin; Z79.01 Long term (current) use of anticoagulants; Z79.899 Other long term (current) drug therapy; Z79.52 Long term (current) use of systemic steroids; Z82.49 Family history of ischemic heart disease and other diseases of the circulatory system
CPT/HCPCS: 36415; 71045; 80048; 80053; 80061; 83690; 83735; 83874; 83880; 84484; 85007; 85025; 85027; 85610; 85730; 93005; 93041; 94640; 94760; 96374; G0378

== ENCOUNTER 2019-05-24 10:43 | Inpatient (IN) | payer BC, MEDICARE ==
[~2019-05-24] VITALS: Ht 165 cm; Wt 110.1 kg
[~2019-05-24 10:43] MED LIST changes: -ACET325C5 PO; +ACET325C7 PO; +FLUT15.845 NS; -FLUT15.88 NS
[2019-05-24] MEDS ORDERED: ASPIRIN 81 MG CHEW (CHILDREN'S ASA) PO ONE (11:00)
[2019-05-24 11:29] LABS: BASOPHILS % (AUTO) 0 % (0-10); EOSINOPHILS % (AUTO) 0 % (0-10); HEMATOCRIT 32 % (35-52); HEMOGLOBIN 9.3 G/DL (11.5-16.0); LYMPHOCYTES # (AUTO) 0.4 X 10^3 (1.0-4.0); LYMPHOCYTES % (AUTO) 6 % (12-44); MEAN CORPUSCULAR HEMOGLOBIN 28 PG (25-34); MEAN CORPUSCULAR HGB CONC 30 G/DL (32-36); MEAN CORPUSCULAR VOLUME 94 FL (80-99); MEAN PLATELET VOLUME 10.5 FL (7.4-10.4); MONOCYTES # (AUTO) 0.8 X 10^3 (0.0-1.0); MONOCYTES % (AUTO) 12 % (0-12); NEUTROPHILS # (AUTO) 5.5 X 10^3 (1.8-7.8); NEUTROPHILS % (AUTO) 82 % (42-75); PLATELET COUNT 302 10^3/uL (130-400); RED CELL DISTRIBUTION WIDTH 15.9 % (10.0-14.5); WHITE BLOOD COUNT 6.7 10^3/uL (4.3-11.0)
[2019-05-24 11:41] LABS: INR 1.7 (0.8-1.4); PROTHROMBIN TIME PATIENT 20.8 SEC (12.2-14.7)
[2019-05-24] MEDS ORDERED: FUROSEMIDE 40 MG/4 ML INJ (LASIX) IVP ONE (11:45)
[2019-05-24 11:51] LABS: ALBUMIN 3.8 GM/DL (3.2-4.5); CALCIUM 9.5 MG/DL (8.5-10.1); CREATININE SERUM 1.91 MG/DL (0.60-1.30); MAGNESIUM 2.2 MG/DL (1.6-2.4); POTASSIUM 4.2 MMOL/L (3.6-5.0); TOTAL PROTEIN 6.9 GM/DL (6.4-8.2)
[2019-05-24 11:57] LABS: CREATINE KINASE MB 3.2 NG/ML (<6.6)
--- NOTE | 2019-05-24 12:09 | Diagnostic Imaging Report ---
Indication: Shortness of air. Time of exam 11:28 AM Correlation is made with prior chest from 05/17/2019. Heart size is stable. Cardiac defibrillator is in place. There is central congestion. Patchy bibasal infiltrates persist. Mid and upper lung hermosillo are clear. There is no effusion or pneumothorax. IMPRESSION: Stable chest since one week earlier. Dictated by: Dictated on workstation # [id number]
[2019-05-24 12:54] LABS: ANISOCYTOSIS SLIGHT; BASOPHILS % (MANUAL) 0 %; ELLIPT/OVALOCYTES SLIGHT; EOSINOPHILS % (MANUAL) 0 %; HYPOCHROMASIA SLIGHT; LYMPHOCYTES % (MANUAL) 8 %; MONOCYTES % (MANUAL) 10 %; NEUTROPHILS % (MANUAL) 82 %; POIKILOCYTOSIS SLIGHT; TEAR DROP CELLS SLIGHT
[2019-05-24 12:58] LABS: BILIRUBIN,URINE NEGATIVE (NEGATIVE); CLARITY,URINE CLEAR; COLOR,URINE YELLOW; GLUCOSE, URINE (UA) NEGATIVE (NEGATIVE); KETONES,URINE NEGATIVE (NEGATIVE); LEUKOCYTE ESTERASE ,URINE TRACE (NEGATIVE); NITRITE,URINE NEGATIVE (NEGATIVE); PH,URINE 5.5 (5-9); PROTEIN,URINE NEGATIVE (NEGATIVE)
[2019-05-24 13:09] LABS: BACTERIA,URINE MODERATE /HPF; RBC,URINE RARE /HPF
[2019-05-24 13:10] LABS: AMORPHOUS SEDIMENT,UR MOD AMOR URATES /LPF; SQUAMOUS EPITHELIAL CELL,UR RARE /HPF
--- NOTE | 2019-05-24 15:15 | NUR ---
MARQUIS SHEEHAN admitted to room 407-1, with an admitting diagnosis of ACUTE EXACERBATION OF CHF, COPD; MIDLY ELEVATED TROPONIN, on 05/24/19 from ED via STRETCHER, accompanied by ED STAFF. MARQUIS SHEEHAN introduced to surroundings, call light, bed controls, phone, TV, temperature control, lights, meal times, smoking policy, visitor policy, side rail policy, bathrooms and showers. Patient Rights given to patient in the handbook. MARQUIS SHEEHAN verbalizes understanding that [facility] is not responsible for the loss or damage to any personal effects or valuables that are kept in the patients posession during their hospitalization. The following Patient Care Plans were discussed with the PATIENT: Discharge Planning, CHRONIC OBSTRUCTIVE PULMONARY DISEASE, CONGESTIVE HEART FAILURE and KNOWLEDGE DEFICIT. MARQUIS SHEEHAN verbalizes understanding of Interdisciplinary Patient Education. Patient and/or family were informed about the Rapid Response Team and its purpose.
[2019-05-24 15:24] VITALS: BP 122/87
[2019-05-24] MEDS ORDERED: CATHETER FLUSH 10 ML SYR IV PRN (15:30)
--- NOTE | 2019-05-24 15:30 | NUR ---
DR MASTERSON NOTIFIED THAT THE PATIENT IS ON THE FLOOR AND REPORTS THAT SHE HAS NOT TAKEN ANY OF HER HOME MEDICATIONS TODAY
--- NOTE | 2019-05-24 15:51 | NUR ---
PATIENT STATES NOTHING HAS CHANGED SINCE HER RECENT DISCHARGE. AT THAT DISCHARGE THEY STOPPED HER ASPIRIN, SHE STATES SHE HAS NOT BEEN TAKING IT. I REVIEWED THE MEDICATIONS THEY WERE REPORTED PREVIOUSLY.
--- NOTE | 2019-05-24 16:13 | Pulmonary Consultation ---
History of Present Illness History of Present Illness Date Seen by Provider: May 24, 2019 Time Seen by Provider: 16:11 Date of Admission Allergies and Home Medications Allergies Coded Allergies: No Known Drug Allergies (Unverified , 11/03/11) Home Medications Acetaminophen 325 Mg Tablet, 650 MG PO Q6H PRN for PAIN-MILD, (Reported) Albuterol Sulfate 18 Gm Hfa.aer.ad, 2 PUFF INH QID PRN for SHORTNESS OF BREATH, (Reported) Allopurinol 100 Mg Tablet, 100 MG PO DAILY, (Reported) Amiodarone HCl 200 Mg Tablet, 200 MG PO DAILY, (Reported) Apixaban 5 Mg Tablet, 5 MG PO BID, (Reported) Calcitriol 0.25 Mcg Capsule, 0.25 MCG PO MoWeFr, (Reported) Cetirizine HCl 10 Mg Tablet, 10 MG PO HS PRN for ALLERGIES, (Reported) Cholecalciferol (Vitamin D3) 2,000 Unit Capsule, 2,000 UNIT PO DAILY, (Reported) Clotrimazole/Betamethasone Dip 15 Gm Cream..g., 1 APPLIC TOP BID PRN for RASH, (Reported) Fluticasone Propionate 16 Gm [place].susp, 1 SPRAY NS HS, (Reported) Fluticasone/Salmeterol 1 Each Blst.w.dev, 1 PUFF IH BID, (Reported) Folic Acid/Mv,Fe,Other Min 1 Each Tablet, 1 TAB PO DAILY, (Reported) Furosemide 40 Mg Tablet, 40 MG PO BID, (Reported) Ipratropium/Albuterol Sulfate 3 Ml Ampul.neb, 3 ML NEB QID PRN for SHORTNESS OF BREATH, (Reported) Loratadine/Pseudoephedrine 1 Each Tab.er.12h, 1 TAB PO BID PRN for CONGESTION, (Reported) Metoprolol Tartrate 50 Mg Tablet, 50 MG PO BID, (Reported) Potassium Chloride 10 Meq Tablet.er, 10 MEQ PO DAILY, (Reported) Sodium Chloride 30 Ml [place], 1-2 SPRAYS NS QID PRN for DRY NOSE, (Reported) Tiotropium [place] 4 Gm Mist.inhal, 2 PUFF INH DAILY, (Reported) Past Aatidyg-Pibtqy-Yasoha Hx Patient Social History 2nd Hand Smoke Exposure: No Recent Foreign Travel: No Contact w/Someone Who Travel: No Recent Infectious Disease Expo: No Recent Hopitalizations: Yes (pneumonia 03/2019) Immunizations Up To Date Date of Influenza Vaccine: Feb 06, 2012 Seasonal Allergies Seasonal Allergies: Yes Past Medical History Surgeries: Yes (Appy and hysterectomy ) Appendectomy, Defibrillator, Hysterectomy Respiratory: Yes Sleep Apnea, COPD Currently Using CPAP: Yes (WITH O2) Currently Using BIPAP: No Cardiac: No (CHF , MULTIPLE SHOCKS TO DEFIB) Atrial Fibrillation, Cardiomyopathy, Hypertension Neurological: No Reproductive Disorders: Yes Sexually Transmitted Disease: No HIV/AIDS: No Genitourinary: Yes Renal Failure Gastrointestinal: No Musculoskeletal: No Endocrine: No HEENT: No Loss of Vision: Denies Cancer: No Psychosocial: No Integumentary: No Blood Disorders: No Adverse Reaction/Blood Tranf: No Family Medical History Patient reports no known family medical history. No Pertinent Family Hx Sepsis Event Evaluation Height, Weight, BMI Height: 5'5.00" Weight: 243lbs. 0.2oz. 97.031440kr; 40.69 BMI Method:Stated Exam Exam Vital Signs Date Time Temp Pulse Resp B/P (MAP) Pulse Ox O2 Delivery O2 Flow Rate FiO2 05/24/19 15:24 36.6 102 22 122/87 95 Nasal Cannula 3.00 Height & Weight Height: 5'5.00" Weight: 243lbs. 0.2oz. 97.552442uh; 40.69 BMI Method:Stated Results Lab Laboratory Tests 05/24/19 11:19 Assessment/Plan Assessment/Plan Pulmonary edema CHFAE -Lasix Oxygen dependent COPD -Duonebs -Oxygen MAXIM -Noncompliant with CPAP therapy Multiple hospitalizations PHILLIP MADRIGAL DO May 24, 2019 16:13
--- NOTE | 2019-05-24 16:14 | NUR ---
DR SMITH PAGED - TO NOTIFY OF CONSULT
--- NOTE | 2019-05-24 16:15 | NUR ---
DR MADRIGAL CALLED- HE IS ALREADY AWARE OF THE CONSULT.
--- NOTE | 2019-05-24 17:12 | NUR ---
PATIENT IS UNSURE ABOUT GETTING THE FLU VACCINE. THE PATIENT WAS EDUCATED ON THE EFFECTS THE FLU COULD HAVE ON HER WITH HER CHRONIC HEALTH PROBLEMS. SHE WILL THINK ABOUT IT..
--- NOTE | 2019-05-24 17:37 | NUR ---
CALLED DR MASTERSON REGARDING DVT SCORE- NO NEW ORDERS AT THIS TIME.
[2019-05-24] MEDS ORDERED: FLU QUADRIvalent (5+ YOA) 2019-2020 (AFLURIA) 0.5 ML IM ONE (17:45)
[2019-05-24] MEDS ORDERED: FUROSEMIDE 40 MG/4 ML INJ (LASIX) IV SCH (18:00)
[2019-05-24] MEDS: RT-ALBUTEROL/IPRATROPIUM 3 ML (DUONEB) VIAL INH SCH ×2 (18:39→21:21)
[2019-05-24] MEDS: RT-ADVAIR HFA 115/21 MCG PER PUFF IH SCH (18:44)
[2019-05-24 19:49] VITALS: BP 132/87
[2019-05-24] MEDS ORDERED: RT-ALBUTEROL/IPRATROPIUM 3 ML (DUONEB) VIAL INH PRN (20:00)
[2019-05-24] MEDS: CATHETER FLUSH 10 ML SYR IV SCH (22:00)
[2019-05-25] VITALS (7 sets, daily range): BP systolic 105–138; BP diastolic 61–87
[2019-05-25] MEDS: RT-ALBUTEROL/IPRATROPIUM 3 ML (DUONEB) VIAL INH SCH ×6 (01:22→21:12)
[2019-05-25 05:08] LABS: BASOPHILS % (AUTO) 0 % (0-10); EOSINOPHILS % (AUTO) 1 % (0-10); HEMATOCRIT 30 % (35-52); HEMOGLOBIN 8.8 G/DL (11.5-16.0); LYMPHOCYTES # (AUTO) 0.5 X 10^3 (1.0-4.0); LYMPHOCYTES % (AUTO) 8 % (12-44); MEAN CORPUSCULAR HEMOGLOBIN 28 PG (25-34); MEAN CORPUSCULAR HGB CONC 30 G/DL (32-36); MEAN CORPUSCULAR VOLUME 94 FL (80-99); MEAN PLATELET VOLUME 10.5 FL (7.4-10.4); MONOCYTES # (AUTO) 0.9 X 10^3 (0.0-1.0); MONOCYTES % (AUTO) 13 % (0-12); NEUTROPHILS # (AUTO) 5.2 X 10^3 (1.8-7.8); NEUTROPHILS % (AUTO) 78 % (42-75); PLATELET COUNT 298 10^3/uL (130-400); RED CELL DISTRIBUTION WIDTH 16.2 % (10.0-14.5); WHITE BLOOD COUNT 6.7 10^3/uL (4.3-11.0)
[2019-05-25 05:31] LABS: ALBUMIN 3.7 GM/DL (3.2-4.5); BILIRUBIN,TOTAL 1.1 MG/DL (0.1-1.0); CALCIUM 9.4 MG/DL (8.5-10.1); CREATININE SERUM 1.75 MG/DL (0.60-1.30); TOTAL PROTEIN 6.6 GM/DL (6.4-8.2)
[2019-05-25] MEDS: CATHETER FLUSH 10 ML SYR IV SCH ×3 (05:31→22:00)
[2019-05-25] MEDS: RT-ADVAIR HFA 115/21 MCG PER PUFF IH SCH ×2 (07:32→18:35)
--- NOTE | 2019-05-25 08:04 | Consultation-Cardiology ---
HPI-Cardiology Cardiology Consultation: Date of Consultation 05/25/19 Time Seen by a Provider: 08:35 Date of Admission 05-24-18 Attending Physician Carey Dai MD Admitting Physician Carlos Castellano MD Consulting Physician Suzette Wilson MD HPI: Chief Complaint: Progressive dyspnea LE swelling Orthopnea Ms. Hurley is a 68 year old female admitted to [facility] from the ED. She reports on Friday night she has some increasing dyspnea, so she did a breathing tx which did help somewhat. She reports Friday morning she had an appt with her PCP in [place]. She reports she was feeling more SOB yesterday morning. She states she was able to drive herself to her appt, but then d/t worsening dyspnea she was unable to walk into the clinic. She reports she continues to have bilat LE swelling, which she feels has not improved since her last admission. She reports orthopnea and has been sleeping in her recliner at home. She continues to have episodes of nose bleeds. She denies any blood in her stool or urine. She reports worsening dyspnea with any exertion and associated tightness in her chest. She denies any fever or chills. She reports she did not take her diuretic yesterday since she had to go to her doctors appt. She denies any n/v/d. She denies any fever or chills. Review of Systems-Cardiology Review of Systems Constitutional: No chills, No fever; malaise Eyes: No vision change Ears/Nose/Throat: epistaxis; No recent hearing loss Respiratory: As described under HPI Cardiovascular: As described under HPI Gastrointestinal: No constipation, No diarrhea, No nausea, No vomiting Genitourinary: No dysuria, No hematuria Musculoskeletal: no symptoms reported Skin: No rash on exposed areas, No ulcerations on exposed areas Psychiatric/Neurological: anxiety; No seizure, No focal weakness, No syncope Hematologic: easy bruising OVZ-Xpnekg-Xhdfht Hx Patient Social History Alcohol Use: Denies Use Recreational Drug Use: No Smoking Status: Never a Smoker 2nd Hand Smoke Exposure: No Recent Foreign Travel: No Recent Infectious Disease Expo: No Hospitalization with Isolation: Denies Physical Abuse Screen: No Sexual Abuse: No Immunizations Up To Date Date of Influenza Vaccine: Feb 06, 2012 Past Medical History PMH As described under Assessment. Family Medical History Family Medical History: She reports her father had HTN. No reported family h/o CAD or SCD. Family History: Patient reports no known family medical history. Allergies and Home Medications Allergies Coded Allergies: No Known Drug Allergies (Unverified , 11/03/11) Home Medications Acetaminophen 325 Mg Tablet, 650 MG PO Q6H PRN for PAIN-MILD, (Reported) Albuterol Sulfate 18 Gm Hfa.aer.ad, 2 PUFF INH QID PRN for SHORTNESS OF BREATH, (Reported) Allopurinol 100 Mg Tablet, 100 MG PO DAILY, (Reported) Amiodarone HCl 200 Mg Tablet, 200 MG PO DAILY, (Reported) Apixaban 5 Mg Tablet, 5 MG PO BID, (Reported) Calcitriol 0.25 Mcg Capsule, 0.25 MCG PO MoWeFr, (Reported) Cetirizine HCl 10 Mg Tablet, 10 MG PO HS PRN for ALLERGIES, (Reported) Cholecalciferol (Vitamin D3) 2,000 Unit Capsule, 2,000 UNIT PO DAILY, (Reported) Clotrimazole/Betamethasone Dip 15 Gm Cream..g., 1 APPLIC TOP BID PRN for RASH, (Reported) Fluticasone Propionate 16 Gm [place].susp, 1 SPRAY NS HS, (Reported) Fluticasone/Salmeterol 1 Each Blst.w.dev, 1 PUFF IH BID, (Reported) Folic Acid/Mv,Fe,Other Min 1 Each Tablet, 1 TAB PO DAILY, (Reported) Furosemide 40 Mg Tablet, 40 MG PO BID, (Reported) Ipratropium/Albuterol Sulfate 3 Ml Ampul.neb, 3 ML NEB QID PRN for SHORTNESS OF BREATH, (Reported) Loratadine/Pseudoephedrine 1 Each Tab.er.12h, 1 TAB PO BID PRN for CONGESTION, (Reported) Metoprolol Tartrate 50 Mg Tablet, 50 MG PO BID, (Reported) Potassium Chloride 10 Meq Tablet.er, 10 MEQ PO DAILY, (Reported) Sodium Chloride 30 Ml [place], 1-2 SPRAYS NS QID PRN for DRY NOSE, (Reported) Tiotropium [place] 4 Gm Mist.inhal, 2 PUFF INH DAILY, (Reported) Patient Home Medication List Home Medication List Reviewed: Yes Physical Exam-Cardiology Physical Exam Vital Signs/I&O 05/25/19 05/25/19 05/25/19 05/25/19 00:00 00:11 00:52 01:22 Temp 36.7 Pulse 103 105 Resp 18 B/P (MAP) 105/70 (82) Pulse Ox 96 96 97 O2 Delivery Nasal Cannula Nasal Cannula Nasal Cannula O2 Flow Rate 3.00 3.00 3.00 05/25/19 05/25/19 05/25/19 05/25/19 04:19 07:00 07:30 08:00 Temp 36.9 36.6 Pulse 105 106 108 Resp 20 20 B/P (MAP) 131/83 (99) 107/61 (76) Pulse Ox 95 95 97 O2 Delivery Nasal Cannula Nasal Cannula Nasal Cannula O2 Flow Rate 3.00 3.00 3.00 05/25/19 00:00 Intake Total 390 ml Output Total 1350 ml Balance -960 ml Capillary Refill : Less Than 3 Seconds Constitutional: AAO x 3, well-developed, well-nourished HEENT: other, hearing is well preserved, oral hygience is good Neck: No carotid bruit; carotid pulses are 2 + bilaterally Respiratory: No accessory muscle use, No respiratory distress; chest expansion is symmetric, chest is bilaterally symmetric, other (diminshed lower lobes bilate) Cardiovascular: regular rate-rhythm; No JVD; S1 and S2 Gastrointestinal: No tender; soft, round, audible bowel sounds Extremities: significant edema (2 (+) bilat LE swelling) Neurologic/Psychiatric: grossly intact (moves all extremities) Skin: No rash on exposed areas, No ulcerations on exposed areas; other (mutiple brusies and scrapes to arms bilat) Data Review Labs Laboratory Tests 05/24/19 11:19: White Blood Count 6.7, Red Blood Count 3.35L, Hemoglobin 9.3L, Hematocrit 32L, Mean Corpuscular Volume 94, Mean Corpuscular Hemoglobin 28, Mean Corpuscular Hemoglobin Concent 30L, Red Cell Distribution Width 15.9H, Platelet Count 302, Mean Platelet Volume 10.5H, Neutrophils (%) (Auto) 82H, Lymphocytes (%) (Auto) 6L, Monocytes (%) (Auto) 12, Eosinophils (%) (Auto) 0, Basophils (%) (Auto) 0, Neutrophils # (Auto) 5.5, Lymphocytes # (Auto) 0.4L, Monocytes # (Auto) 0.8, Eosinophils # (Auto) 0.0, Basophils # (Auto) 0.0, Neutrophils % (Manual) 82, Lymphocytes % (Manual) 8, Monocytes % (Manual) 10, Eosinophils % (Manual) 0, Basophils % (Manual) 0, Hypochromasia SLIGHT, Poikilocytosis SLIGHT, Anisocytosis SLIGHT, Tear Drop Cells SLIGHT, Elliptocytes SLIGHT, Prothrombin Time 20.8H, INR Comment 1.7H, Activated Partial Thromboplast Time 34, Sodium Level 139, Potassium Level 4.2, Chloride Level 100, Carbon Dioxide Level 26, Anion Gap 13, Blood Urea Nitrogen 37H, Creatinine 1.91H, Estimat Glomerular Filtration Rate 32, BUN/Creatinine Ratio 19, Glucose Level 110H, Calcium Level 9.5, Corrected Calcium 9.7, Magnesium Level 2.2, Total Bilirubin 1.0, Aspartate Amino Transf (AST/SGOT) 26, Alanine Aminotransferase (ALT/SGPT) 26, Alkaline Phosphatase 95, Total Creatine Kinase 111, Creatine Kinase MB 3.2, Myoglobin 153.0H, Troponin I 0.061H, B-Type Natriuretic Peptide 1182.2H, Total Protein 6.9, Albumin 3.8 05/24/19 12:34: Urine Color YELLOW, Urine Clarity CLEAR, Urine pH 5.5, Urine Specific [place] 1.015L, Urine Protein NEGATIVE, Urine Glucose (UA) NEGATIVE, Urine Ketones NEGATIVE, Urine Nitrite NEGATIVE, Urine Bilirubin NEGATIVE, Urine Urobilinogen 0.2, Urine Leukocyte Esterase TRACE, Urine RBC (Auto) NEGATIVE, Urine RBC RARE, Urine WBC 5-10H, Urine Squamous Epithelial Cells RARE, Urine Crystals PRESENTH, Urine Amorphous Sediment MOD LEROY URATESH, Urine Bacteria MODERATEH, Urine Casts NONE, Urine Mucus NEGATIVE, Urine Culture Indicated YES 05/24/19 15:40: Troponin I 0.069H 05/25/19 04:40: White Blood Count 6.7, Red Blood Count 3.18L, Hemoglobin 8.8L, Hematocrit 30L, Mean Corpuscular Volume 94, Mean Corpuscular Hemoglobin 28, Mean Corpuscular Hemoglobin Concent 30L, Red Cell Distribution Width 16.2H, Platelet Count 298, Mean Platelet Volume 10.5H, Neutrophils (%) (Auto) 78H, Lymphocytes (%) (Auto) 8L, Monocytes (%) (Auto) 13H, Eosinophils (%) (Auto) 1, Basophils (%) (Auto) 0, Neutrophils # (Auto) 5.2, Lymphocytes # (Auto) 0.5L, Monocytes # (Auto) 0.9, Eosinophils # (Auto) 0.0, Basophils # (Auto) 0.0, Sodium Level 141, Potassium Level 4.0, Chloride Level 99, Carbon Dioxide Level 28, Anion Gap 14, Blood Urea Nitrogen 33H, Creatinine 1.75H, Estimat Glomerular Filtration Rate 35, BUN/Creatinine Ratio 19, Glucose Level 103, Calcium Level 9.4, Corrected Calcium 9.6, Total Bilirubin 1.1H, Aspartate Amino Transf (AST/SGOT) 22, Alanine Aminotransferase (ALT/SGPT) 24, Alkaline Phosphatase 73, B-Type Natriuretic Peptide 961.9H, Total Protein 6.6, Albumin 3.7 Microbiology 05/24/19 Urine Culture - Preliminary, Resulted Gram Negative Hank 05/24/19 Influenza Types A,B Antigen (RADHA) - Final, Complete Radiology NAME: MARQUIS HURLEY [facility] REC#: [id number] PT STATUS: ADM IN : 1950 PHYSICIAN: TANA SHAW DO ADMIT DATE: 05/24/19 Signed Date of Exam:05/24/19 CHEST 1 VIEW, AP/PA ONLY Indication: Shortness of air. Time of exam 11:28 AM Correlation is made with prior chest from 05/17/2019. Heart size is stable. Cardiac defibrillator is in place. There is central congestion. Patchy bibasal infiltrates persist. Mid and upper lung [place] are clear. There is no effusion or pneumothorax. IMPRESSION: Stable chest since one week earlier. Dictated by: Dictated on workstation # [id number] Dict: 05/24/19 1152 Trans: 05/24/19 1516 [facility] [id number] Interpreted by: KAREN CLEARY MD Electronically signed by: KAREN CLEARY MD 05/24/19 1516 ECG Impression ECG Initial ECG Rhythm: Normal Sinus A/P-Cardiology Assessment/Admission Diagnosis Multifactorial shortness of breath (see below) Card cath of 04/12/19: normal cors, LVEF 50%, LVEDP 17 mmHg, no significant MR on this study H/O nonischemic cardiomyopathy with an ejection fraction between 30 and 35% on serial echocardiograms previously. Most recent echocardiogram of Mar 24, 2019 shows LVEF 50-55%, LA mild to mod dilated; Mod-severe MR and TR. PASP 60mmHg. Most recent echo of May 08, [address] Pritchett showed LVEF 55-65%. Concentric LVH. Grade 2 diastolic dysfuncton. LA mild to mod dilated. Severe MR and TR. PASP 70-75mmHg. Acute on chronic systolic and diastolic CHF due to nonischemic cardiomyopathy and non-compliance with diuretic regimen Type 2 ID likely secondary to transient hypoxia and acute on chronic renal dz Syncopal episode of undetermined etiology (May 06, 2019 per pt report). Device interrogation of 05/17/19 did not any significant arrhythmia that might account for syncope Anemia of undetermined etiology (possibly due to CKD) managed by the [facility] Svce Intolerance to ORAL-inhib / ARB due to worsening renal function Suspected sarcoidosis, followed by Dr Rose. 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 Rose audio visual manager S/p dual chamber ICD, pulse generator change out on 09-22-18 and subsequent superficial dehiscence at the device insertion site that healed by secondary intention. Device functioning normally per interrogation of Feb 2019 Paroxysmal atrial flutter with an intermittent rapid ventricular response. In July 2012, she received one shock ICD for atrial flutter but has not has not received any since. Interrogation of 05/17/19 shows brief episodes of A Fl but with good rate control Intolerance to digoxin (results in N/V and poor apetite) Chronic LBBB CKD-4, being followed by Dr Huff History of bronchial asthma, managed by Dr Rose Chronic anticoagulation with Eliquis therapy for stroke prophylaxis. Frequent epistaxis Obesity-hypoventilation syndrome and MAXIM, treated with CPAP, but she is noncompliant H/o pulm hypertension on echo studies of 2011,2012, 2013, echo studies of 2015 and 2017 had shown PASP approx 30-35 mmHg. Most recent echo of Mar 2019 showed PASP 60mmHg Mild carotid dz per u/s of Mar 2019 Discussion and Recomendations Complex management issue with multiple admissions Treat decompensated CHF with diuretics Monitor lab closely Replace electrolytes Advised strict compliance with medications and recommendations Further recs will be based on her hospital course I have spoken with Dr. Dai of medical services this morning We would like to thank her for this consult Clinical Quality Measures DVT/VTE Risk/Contraindication: Risk Factor Score Per Nursin RFS Level Per Nursing on Admit: 4+=Very High VIRGIL CORNEJO May 25, 2019 08:04
--- NOTE | 2019-05-25 08:24 | Diagnostic Imaging Report ---
CHEST 1 VIEW, AP/PA ONLY Indication: Congestive heart failure, COPD Comparison: 05/24/2019 Findings: Right perihilar bandlike opacities have increased. Ill-defined opacities in lung bases are otherwise unchanged. No pneumothorax or pleural effusion. Stable enlargement of the cardiac silhouette with left pectoral transvenous pacemaker/ICD. Impression: 1. Increased right midlung zone bandlike atelectasis. Dictated by: Dictated on workstation # [id number]
[2019-05-25] MEDS ORDERED: AMIODARONE 200 MG (CORDARONE) TAB PO SCH (09:00)
[2019-05-25] MEDS: meTOprolol TARTRATE 50 MG (LOPRESSOR) TAB PO SCH ×2 (09:49→21:22)
[2019-05-25] MEDS: APIXABAN 5 MG (ELIQUIS) TABLET PO SCH ×2 (09:49→21:36)
[2019-05-25] MEDS ORDERED: FUROSEMIDE 40 MG/4 ML INJ (LASIX) IVP ONE (10:30)
--- NOTE | 2019-05-25 10:44 | History & Physical-Hospitalist ---
History of Present Illness HPI/Chief Complaint Patient is a 68-year-old female well-known to me from recent admissions for CHF and COPD who presented to the emergency department with a chief complaint of shortness of breath. She was just here last week and discharged home. She states she felt well for a couple days and then developed worsening shortness of breath. She states it is worse with laying back and with any exertion. She also complains of some mild chest tightness. She reports compliance with her medications and with diet changes but when asked more specifically she did not take her medications yesterday morning and she also had eaten a burger the night before. She reports difficulty with knowing what to eat. She states she did not take her medication because she didn't want to have to urinate while on the way to her doctor's office yesterday. She has an appointment with [facility] Pulmonology in June. Source: patient Exam Limitations: no limitations Date Seen 05/25/19 Time Seen by a Provider: 10:40 Attending Physician Xin Masterson MD PCP Carlos Castellano MD Referring Physician Date of Admission May 24, 2019 at 14:31 Home Medications & Allergies Home Medications Reviewed patient Home Medication Reconciliation performed by pharmacy medication reconciliations metallurgical or materials technician and/or nursing. Patients Allergies have been reviewed. Allergies Allergies Coded Allergies No Known Drug Allergies (Unverified11/03/11) Past Narqnbg-Ketpba-Fryvhq Hx Past Med/Social Hx: Reviewed Nursing Past Med/Soc Hx Patient Social History Marrital Status: Alcohol Use: Denies Use Recreational Drug Use: No Smoking Status: Never a Smoker 2nd Hand Smoke Exposure: No Physical Abuse Screen: No Sexual Abuse: No Recent Foreign Travel: No Contact w/other who traveled: No Recent Hopitalizations: Yes (pneumonia 03/2019) Recent Infectious Disease Expo: No Immunizations Up To Date Date of Influenza Vaccine: Feb 06, 2012 Seasonal Allergies Seasonal Allergies: Yes Past Medical History Surgeries: Appendectomy, Defibrillator, Hysterectomy Respiratory: COPD, Pneumonia, Sleep Apnea Sarcoidosis Currently Using CPAP: Yes (WITH O2) Currently Using BIPAP: No Cardiac: Atrial Fibrillation, Cardiomyopathy, Hypertension PHTN Reproductive: Yes Sexually Transmitted Disease: No HIV/AIDS: No Genitourinary: Renal Failure Loss of Vision: Denies History of Blood Disorders: No Adverse Reaction to Blood [place]: No Family History Patient reports no known family medical history. No Pertinent Family Hx Review of Systems Constitutional: No chills, No fever EENTM: no symptoms reported Respiratory: No cough; dyspnea on exertion; No hemoptysis; orthopnea; No phlegm; short of breath Cardiovascular: chest pain, edema; No palpitations Gastrointestinal: no symptoms reported Genitourinary: no symptoms reported Musculoskeletal: no symptoms reported Skin: no symptoms reported Psychiatric/Neurological: No Symptoms Reported Physical Exam Physical Exam Vital Signs Vital Signs - First Documented 05/24/19 15:24 Temp 36.6 Capillary Refill : Less Than 3 Seconds Height, Weight, BMI Height: 5'5.00" Weight: 243lbs. 0.2oz. 97.196279hp; 40.69 BMI Method:Stated General Appearance: No Apparent Distress, Chronically ill, Obese Respiratory: Lungs Clear, No Respiratory Distress Cardiovascular: Regular Rate, Rhythm, No Murmur Gastrointestinal: Normal Bowel Sounds, Non Tender, Soft Neurologic/Psychiatric: Alert, Oriented x3, Normal Mood/Affect Results Results/Procedures Labs Laboratory Tests 05/24/19 11:19 05/25/19 04:40 Patient resulted labs reviewed. Imaging: Reviewed Imaging Report Assessment/Plan Admission Diagnosis CHF Exacerbation Admission Status: Inpatient Order (span 2 midnights) Reason for Inpatient Admission: IV duiresis, had failed outpatient management, noncompliance Assessment and Plan Acute on chronic diastolic heart failure with preserved ejection fraction Chronic respiratory failure with hypoxia- at baseline 3lpm CAD -BNP Elevated -Continue IV Lasix -Cardiology consulted -Echo n 05/10/19 shows preserved EF and grade 2 diastolic dysfunction with PA pressure of 70 -Significant issues with noncompliance with diet and meds - I discussed with length about compliance with meds and diet, dietary consult placed Acute kidney injury superimposed on chronic kidney disease Creatinine increased at 1.91 on arrival -baseline appears to be around 1.6 IV diuresis as above but monitor creatinine closely COPD without acute exacerbation - Continue home meds - Pulm consulted, appreciate recs Paroxysmal atrial fibrillation Continue metoprolol, amiodarone, and Eliquis Debility Morbid Obesity PT/OT consulted Diagnosis/Problems Diagnosis/Problems (1) Pulmonary hypertension (2) Morbid obesity with BMI of 40.0-44.9, adult (3) Debility (4) Acute on chronic heart failure with preserved ejection fraction Status: Acute (5) COPD without exacerbation Status: Chronic (6) Acute kidney injury superimposed on chronic kidney disease Status: Acute (7) Acute and chronic respiratory failure with hypoxia Status: Acute (8) Paroxysmal atrial flutter Status: Chronic (9) ICD (implantable cardioverter-defibrillator) in place Status: Chronic Clinical Quality Measures DVT/VTE Risk/Contraindication: Risk Factor Score Per Nursin RFS Level Per Nursing on Admit: 4+=Very High XIN MASTERSON MD May 25, 2019 10:44
[2019-05-25] MEDS ORDERED: ACETAMINOPHEN 500 MG TAB (TYLENOL) PO PRN (11:00)
--- NOTE | 2019-05-25 12:16 | Pulmonary Progress Note ---
Subjective Time Seen by a Provider: 12:13 Subjective/Events-last exam Pt is doing better with less SOB. Sepsis Event Evaluation Height, Weight, BMI Height: 5'5.00" Weight: 243lbs. 0.2oz. 97.180899ip; 40.69 BMI Method:Stated Exam Exam Vital Signs Date Time Temp Pulse Resp B/P (MAP) Pulse Ox O2 Delivery O2 Flow Rate FiO2 05/25/19 11:01 95 Nasal Cannula 3.00 05/25/19 09:46 96 Nasal Cannula 3.00 05/25/19 08:00 36.6 108 20 107/61 (76) 97 Nasal Cannula 3.00 05/25/19 07:30 95 Nasal Cannula 3.00 05/25/19 07:00 106 05/25/19 04:19 36.9 105 20 131/83 (99) 95 Nasal Cannula 3.00 05/25/19 01:22 97 Nasal Cannula 3.00 05/25/19 00:52 105 05/25/19 00:11 96 Nasal Cannula 3.00 05/25/19 00:00 36.7 103 18 105/70 (82) 96 Nasal Cannula 3.00 05/24/19 21:21 96 Nasal Cannula 3.00 05/24/19 20:00 96 Nasal Cannula 3.00 05/24/19 19:49 36.7 104 20 132/87 (102) 97 Nasal Cannula 3.00 05/24/19 18:44 97 Nasal Cannula 3.00 05/24/19 18:39 98 Nasal Cannula 3.00 05/24/19 18:20 105 05/24/19 15:30 101 20 110/76 94 Room Air 05/24/19 15:24 36.6 102 22 122/87 95 Nasal Cannula 3.00 05/24/19 15:15 95 Nasal Cannula 3.00 I & O 05/25/19 07:00 Intake Total 840 ml Output Total 1900 ml Balance -1060 ml Height & Weight Height: 5'5.00" Weight: 243lbs. 0.2oz. 97.006045qa; 40.69 BMI Method:Stated General Appearance: No Apparent Distress, Chronically ill, Obese Respiratory: Lungs Clear, No Respiratory Distress Cardiovascular: Regular Rate, Rhythm, No Murmur Capillary Refill: Less Than 3 Seconds Neurologic/Psychiatric: Alert, Oriented x3, Normal Mood/Affect Results Lab Laboratory Tests 05/24/19 11:19 05/25/19 04:40 Assessment/Plan Assessment/Plan Pulmonary edema CHFAE -continue Lasix -Noncompliant with Lasix Oxygen dependent COPD -Duonebs -Oxygen Atelectasis -Increase activity -IS MAXIM -Noncompliant with CPAP therapy Multiple hospitalizations PHILLIP MADRIGAL DO May 25, 2019 12:16
--- NOTE | 2019-05-25 12:41 | Consultation-Cardiology ---
HPI-Cardiology Cardiology Consultation: Date of Consultation 05/25/19 Time Seen by a Provider: 11:30 Date of Admission Attending Physician Carey Dai MD Admitting Physician Carlos Castellano MD Consulting Physician HENRY SMITH MD, FACP, FACC HPI: Chief Complaint: CC: Shortness of breath, leg swelling HPI Ms. Hurley is a 68 year old female admitted to [facility] from the ED. She reports on Friday night she has some increasing dyspnea, so she did a breathing tx which did help somewhat. She reports Friday morning she had an appt with her PCP in [place]. She reports she was feeling more SOB yesterday morning. She states she was able to drive herself to her appt, but then d/t worsening dyspnea she was unable to walk into the clinic. She reports she continues to have bilat LE swelling, which she feels has not improved since her last admission. She reports orthopnea and has been sleeping in her recliner at home. She continues to have episodes of nose bleeds. She denies any blood in her stool or urine. She reports worsening dyspnea with any exertion and associated tightness in her chest. She denies any fever or chills. She reports she did not take her diuretic yesterday since she had to go to her doctors appt. She denies any n/v/d. She denies any fever or chills. She intermittently is non-compliant with diuretics and does not watch her diet at home Review of Systems-Cardiology Review of Systems Constitutional: No chills, No fever; malaise Eyes: No vision change Ears/Nose/Throat: epistaxis; No recent hearing loss Respiratory: As described under HPI Cardiovascular: As described under HPI Gastrointestinal: No constipation, No diarrhea, No nausea, No vomiting Genitourinary: No dysuria, No hematuria Musculoskeletal: no symptoms reported Skin: No rash on exposed areas, No ulcerations on exposed areas Psychiatric/Neurological: anxiety; No seizure, No focal weakness, No syncope Hematologic: easy bruising OYE-Ttffnb-Oxpctx Hx Patient Social History Marrital Status: Alcohol Use: Denies Use Recreational Drug Use: No Smoking Status: Never a Smoker 2nd Hand Smoke Exposure: No Recent Foreign Travel: No Recent Infectious Disease Expo: No Hospitalization with Isolation: Denies Physical Abuse Screen: No Sexual Abuse: No Immunizations Up To Date Date of Influenza Vaccine: Feb 06, 2012 Past Medical History PMH As described under Assessment. Family Medical History Family Medical History: She reports her father had HTN. No reported family h/o CAD or SCD. Family History: Patient reports no known family medical history. Allergies and Home Medications Allergies Coded Allergies: No Known Drug Allergies (Unverified , 11/03/11) Home Medications Acetaminophen 325 Mg Tablet, 650 MG PO Q6H PRN for PAIN-MILD, (Reported) Albuterol Sulfate 18 Gm Hfa.aer.ad, 2 PUFF INH QID PRN for SHORTNESS OF BREATH, (Reported) Allopurinol 100 Mg Tablet, 100 MG PO DAILY, (Reported) Amiodarone HCl 200 Mg Tablet, 200 MG PO DAILY, (Reported) Apixaban 5 Mg Tablet, 5 MG PO BID, (Reported) Calcitriol 0.25 Mcg Capsule, 0.25 MCG PO MoWeFr, (Reported) Cetirizine HCl 10 Mg Tablet, 10 MG PO HS PRN for ALLERGIES, (Reported) Cholecalciferol (Vitamin D3) 2,000 Unit Capsule, 2,000 UNIT PO DAILY, (Reported) Clotrimazole/Betamethasone Dip 15 Gm Cream..g., 1 APPLIC TOP BID PRN for RASH, (Reported) Fluticasone Propionate 16 Gm Marshall.susp, 1 SPRAY NS HS, (Reported) Fluticasone/Salmeterol 1 Each Blst.w.dev, 1 PUFF IH BID, (Reported) Folic Acid/Mv,Fe,Other Min 1 Each Tablet, 1 TAB PO DAILY, (Reported) Furosemide 40 Mg Tablet, 40 MG PO BID, (Reported) Ipratropium/Albuterol Sulfate 3 Ml Ampul.neb, 3 ML NEB QID PRN for SHORTNESS OF BREATH, (Reported) Loratadine/Pseudoephedrine 1 Each Tab.er.12h, 1 TAB PO BID PRN for CONGESTION, (Reported) Metoprolol Tartrate 50 Mg Tablet, 50 MG PO BID, (Reported) Potassium Chloride 10 Meq Tablet.er, 10 MEQ PO DAILY, (Reported) Sodium Chloride 30 Ml Marshall, 1-2 SPRAYS NS QID PRN for DRY NOSE, (Reported) Tiotropium [place] 4 Gm Mist.inhal, 2 PUFF INH DAILY, (Reported) Patient Home Medication List Home Medication List Reviewed: Yes Physical Exam-Cardiology Physical Exam Vital Signs/I&O 05/25/19 05/25/19 05/25/19 05/25/19 00:52 01:22 04:19 07:00 Temp 36.9 Pulse 105 105 106 Resp 20 B/P (MAP) 131/83 (99) Pulse Ox 97 95 O2 Delivery Nasal Cannula Nasal Cannula O2 Flow Rate 3.00 3.00 05/25/19 05/25/19 05/25/19 05/25/19 07:30 08:00 09:46 11:01 Temp 36.6 Pulse 108 Resp 20 B/P (MAP) 107/61 (76) Pulse Ox 95 97 96 95 O2 Delivery Nasal Cannula Nasal Cannula Nasal Cannula Nasal Cannula O2 Flow Rate 3.00 3.00 3.00 3.00 05/25/19 00:00 Intake Total 390 ml Output Total 1350 ml Balance -960 ml Capillary Refill : Less Than 3 Seconds Constitutional: AAO x 3, well-developed, well-nourished HEENT: other, hearing is well preserved, oral hygience is good Neck: No carotid bruit; carotid pulses are 2 + bilaterally Respiratory: No accessory muscle use, No respiratory distress; chest expansion is symmetric, chest is bilaterally symmetric, other (diminshed lower lobes bilate) Cardiovascular: regular rate-rhythm; No JVD; S1 and S2 Gastrointestinal: No tender; soft, round, audible bowel sounds Extremities: significant edema (2 (+) bilat LE swelling) Neurologic/Psychiatric: grossly intact (moves all extremities) Skin: No rash on exposed areas, No ulcerations on exposed areas; other (mutiple brusies and scrapes to arms bilat) Data Review Labs Laboratory Tests 05/24/19 15:40: Troponin I 0.069H 05/25/19 04:40: White Blood Count 6.7, Red Blood Count 3.18L, Hemoglobin 8.8L, Hematocrit 30L, Mean Corpuscular Volume 94, Mean Corpuscular Hemoglobin 28, Mean Corpuscular Hemoglobin Concent 30L, Red Cell Distribution Width 16.2H, Platelet Count 298, Mean Platelet Volume 10.5H, Neutrophils (%) (Auto) 78H, Lymphocytes (%) (Auto) 8L, Monocytes (%) (Auto) 13H, Eosinophils (%) (Auto) 1, Basophils (%) (Auto) 0, Neutrophils # (Auto) 5.2, Lymphocytes # (Auto) 0.5L, Monocytes # (Auto) 0.9, Eosinophils # (Auto) 0.0, Basophils # (Auto) 0.0, Sodium Level 141, Potassium Level 4.0, Chloride Level 99, Carbon Dioxide Level 28, Anion Gap 14, Blood Urea Nitrogen 33H, Creatinine 1.75H, Estimat Glomerular Filtration Rate 35, BUN/Creatinine Ratio 19, Glucose Level 103, Calcium Level 9.4, Corrected Calcium 9.6, Total Bilirubin 1.1H, Aspartate Amino Transf (AST/SGOT) 22, Alanine Aminotransferase (ALT/SGPT) 24, Alkaline Phosphatase 73, B-Type Natriuretic Peptide 961.9H, Total Protein 6.6, Albumin 3.7 Microbiology 05/24/19 Urine Culture - Preliminary, Resulted Gram Negative Hank 05/24/19 Influenza Types A,B Antigen (RADHA) - Final, Complete A/P-Cardiology Assessment/Admission Diagnosis Multifactorial shortness of breath (see below) Card cath of 04/12/19: normal cors, LVEF 50%, LVEDP 17 mmHg, no significant MR on this study H/O nonischemic cardiomyopathy that is much improved now. Previously, she had an ejection fraction between 30 and 35% on serial echocardiograms, but most recent echo of May 08, [address] Pritchett showed LVEF 55-65%. Concentric LVH. Grade 2 diastolic dysfuncton. LA mild to mod dilated. Severe MR and TR. PASP 70-75mmHg Acute on chronic systolic and diastolic CHF due to nonischemic cardiomyopathy and non-compliance with diuretic regimen Type 2 TN likely secondary to transient hypoxia and acute on chronic renal dz Syncopal episode of undetermined etiology (May 06, 2019 per pt report). Device interrogation of 05/17/19 did not any significant arrhythmia that might account for syncope Anemia of undetermined etiology (possibly due to CKD) managed by the [facility] Intolerance to ORAL-inhib / ARB due to worsening renal function Suspected sarcoidosis, followed by Dr Rose. 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 Device functioning normally per interrogation of Feb 2019 Paroxysmal atrial flutter with an intermittent rapid ventricular response. In July 2012, she received one shock ICD for atrial flutter but has not has not received any since. Interrogation of 05/17/19 shows brief episodes of A Fl but with good rate control Intolerance to digoxin (results in N/V and poor apetite) Chronic LBBB CKD-4, being followed by Dr Huff History of bronchial asthma, managed by Dr Rose Chronic anticoagulation with Eliquis therapy for stroke prophylaxis. Frequent epistaxis Obesity-hypoventilation syndrome and MAXIM, treated with CPAP, but she is noncompliant Pulmonary hypertension of undetermined etiology. H/o pulm hypertension on echo studies of 2011,2012, 2013, echo studies of 2015 and 2017 had shown PASP approx 30-35 mmHg. Most recent echo of Mar and Apr 2019 showed PASP in 60-80 mmHg range Mild carotid dz per u/s of Mar 2019 Discussion and Recomendations * Complex management issue - multiple admissions * Treat decompensated CHF with diuretics * GABRIELLA to eval MR that was severe on TTE but insignificant on card cath * D/c amiodarone because it may be resulting in pulm toxicity * Monitor lab closely * Replace electrolytes * Advised strict compliance with medications and recommendations * I discussed her case in detail with Dr Dai on the phone today * Advise consideration of inpatient rehab to improve stamina prior to discharge Clinical Quality Measures DVT/VTE Risk/Contraindication: Risk Factor Score Per Nursin RFS Level Per Nursing on Admit: 4+=Very High HNERY SMITH MD FACP [facility] May 25, 2019 12:41
--- NOTE | 2019-05-25 14:14 | Physical Therapy Evaluation ---
PT Evaluation-General Medical Diagnosis Admission Date May 24, 2019 at 14:31 Medical Diagnosis: CHF exacerbation Onset Date: May 24, 2019 Therapy Diagnosis Therapy Diagnosis: impaired mobility, strength, endurance Height/Weight Height (Feet): 5 Height (Inches): 5.00 Weight (Pounds): 243 Weight (Ounces): 0.2 Precautions Precautions/Isolations: Fall Prevention, Standard Precautions Weight Bear Status Right Lower Extremity: Right Weight Bearing/Tolerated Left Lower Extremity: Left Weight Bearing/Tolerated Referral Physician: Malaika Reason for Referral: Evaluation/Treatment Medical History Pertinent Medical History: Atrial Fib, COPD, HTN, Renal Insufficiency Additional Medical History Past Medical History Surgeries: Appendectomy, Defibrillator, Hysterectomy Respiratory: COPD, Pneumonia, Sleep Apnea Sarcoidosis Currently Using CPAP: Yes (WITH O2) Currently Using BIPAP: No Cardiac: Atrial Fibrillation, Cardiomyopathy, Hypertension PHTN Reproductive: Yes Sexually Transmitted Disease: No HIV/AIDS: No Genitourinary: Renal Failure Loss of Vision: Denies Reviewed History: Yes Social History Home: Single Level Current Living Status: Spouse Prior Prior Level of Function SCALE: Activities may be completed with or without assistive devices. 4-Orsrhqbbtt-etknmxn completes the activity by him/herself with no assistance from a helper. 5-Set-up or Clean-up Assistance-helper sets up or cleans up; patient completes activity. [place] assists only prior to or following the activity. 4-Supervision or Touching Assistance-helper provides verbal cues and/or touching/steadying and/or contact guard assistance as patient completes activity. Assistance may be provided throughout the activity or intermittently. 3-Partial/Moderate Assistance-helper does LESS THAN HALF the effort. [place] lifts, holds or supports trunk or limbs, but provides less than half the effort. 2-Substantial/Maximal Assistance-helper does MORE THAN HALF the effort. [place] lifts or holds trunk or limbs and provides more than half the effort. 9-Ntxvyvehn-otoaek does ALL the effort. Patient does none of the effort to complete the activity. Or, the assistance of 2 or more helpers is required for the patient to complete the activity. If activity was not attempted, code reason: 7-Patient Refused. 9-Not Applicable-not attempted and the patient did not perform the activity before the current illness, exacerbation or injury. 10-Not Attempted due to Environmental Limitations-(lack of equipment, weather restraints, etc.). 88-Not Attempted due to Medical Conditions or Safety Concerns. Bed Mobility: 6 Transfers (B,C,W/C): 6 Gait: 6 Indoor Mobility (Ambulation): Independent PT Evaluation-Current Subjective Patient in bed pre tx, agrees to PT, has no complaints of pain. Patient states that she needs to use her bedside commode for BM. Pt/Family Goals to be independent at home Objective Patient Orientation: Person, Place, Situation Attachments: Oxygen, Gtz Catheter ROM/Strength Strength Lower Extremities 4/5 gross BLE Sensory Vision: Wears Glasses Hearing: Functional Sensation Right Lower Extremit: Impaired Sensation Left Lower Extremity: Impaired Sensation Lower Extremities Patient states she has occasional numbness in her feet. Transfers Roll Left to Right (QC): 6 Lying to Sitting/Side of Bed(Q: 6 Sit to Stand (QC): 6 Chair/Vpi-ne-Msoek Xfer(QC): 6 Patient transferrs to commode without assist using a rolling walker, she is able to wipe herself after going. Gait Does the Patient Walk?: Yes Mode of Locomotion: Walk Anticipated Mode of Locomotion: Walk Walk 10 feet (QC): 4 Walk 50 ft with 2 Turns(QC): 4 Distance: 120' Gait Assistive Device: FWW Comments/Gait Description SBA, slow but steady, patient needs about 6 standing rest breaks due to SOB, she purse lip breathes Assessment/Needs Patient has impaired mobility, strength, endurance. She gets SOB with ambulation but needs no assist with it or transfers. Rehab Potential: Fair PT Chcf Goals Chcf Goals PT Fleet Manager Goals Time Frame: Jun 01, 2019 Roll Left & Right (QC): 6 Sit to Lying (QC): 6 Lying-Sitting on Side/Bed(QC): 6 Sit to Stand (QC): 6 Chair/Siv-pk-Fonpl Xfer(QC): 6 Walk 10 feet (QC): 6 Walk 50ft with 2 Turns (QC): 6 Walk 150 ft (QC): 6 PT Plan Problem List Problem List: Activity Tolerance, Functional Strength, Safety, Balance, Gait, Transfer, ROM Treatment/Plan Treatment Plan: Continue Plan of Care Treatment Plan: Education, Functional Activity Rufina, Functional Strength, Gait, Safety, Therapeutic Exercise, Transfers Treatment Duration: Jun 01, 2019 Frequency: 6 times per week Estimated Hrs Per Day: .25 hour per day Patient and/or Family Agrees t: Yes Safety Risks/Education Patient Education: Gait Training, Transfer Techniques, Correct Positioning, Safety Issues Teaching Recipient: Patient Teaching Methods: Demonstration, Discussion Response to Teaching: Reinforcement Needed Discharge Recommendations Plan Patient will perform bed mobility and transfer training, balance and endurance training, functional strengthening, stair training, gait training, and education, to improve functional mobility and independence at home. Therapy Discharge Recommendati: Other, See Comments (home with family) Time/GCodes Time In: 1343 Time Out: 1406 Total Billed Treatment Time: 23 Total Billed Treatment 1 visit HEIDE 15' GT 8' RUBIO PRITCHETT PT May 25, 2019 14:13
--- NOTE | 2019-05-25 15:18 | NUR ---
IRF Evaluation Order received to evaluate patient for the ARU. Chart review complete and it appears patient is transferring with independence and ambulating 120ft, FWW; therefore, patient does not require intensive therapies at this time. CM/SS notified. Thank you for this referral.
[2019-05-25] MEDS ORDERED: SALINE NASAL SPRAY (OCEAN) 45 ML BTL NS PRN (16:30)
[2019-05-25] MEDS ORDERED: ACETAMINOPHEN 325 MG TABLET PO PRN (16:30)
[2019-05-25] MEDS ORDERED: BETAMETHASONE/CLOTRIM CREAM (LOTRISONE) 45 GM TP PRN (16:30)
[2019-05-25] MEDS: FUROSEMIDE 40 MG/4 ML INJ (LASIX) IVP SCH (16:51)
--- NOTE | 2019-05-25 16:54 | NUR ---
CM/SS visited with the patient for discharge planning. The patient states that one of her physicians is wanting her to go to an assisted living however the patient is not wanting to go to an assisted living at this time. The patient only has medicare which would not pay for an assisted living stay. The patient states she does not have the funds and is not willing to apply for Medicaid with a division of assets. CM/SS discussed what was talked about last visit and patient verbalized that she did not follow up or make any calls. CM/SS discussed having a personal friend or someone she knows be a caregiver for a couple hours a week and the patient seemed interested in this. CM/SS discussed with Dr. Dai [facility] but unsure if the patient would qualify at this time. IRF evaluated the patient but has denied. A referral was put in for a new CPAP mask and CM/SS called to get this set up for the patient however the [employer] company [facility] stated that she could not provide that right now due to the patient not being compliant with CPAP at home. Will continue to follow and assist patient with any needs.
[2019-05-25] MEDS: KCL 20 MEQ TAB (K-DUR) PO SCH (21:22)
[2019-05-25] MEDS: FLUTICASONE NASAL SPRAY (FLONASE) 16 GM BTL NS SCH (21:37)
[2019-05-26 00:20] VITALS: BP 108/60
[2019-05-26] MEDS: RT-ALBUTEROL/IPRATROPIUM 3 ML (DUONEB) VIAL INH SCH ×6 (01:26→22:12)
[2019-05-26 03:16] VITALS: BP 116/74
[2019-05-26 04:41] LABS: HEMOGLOBIN 8.9 G/DL (11.5-16.0); MEAN PLATELET VOLUME 10.6 FL (7.4-10.4); RED CELL DISTRIBUTION WIDTH 16.1 % (10.0-14.5); WHITE BLOOD COUNT 7.2 10^3/uL (4.3-11.0)
[2019-05-26 05:11] LABS: CALCIUM 9.1 MG/DL (8.5-10.1); CREATININE SERUM 1.73 MG/DL (0.60-1.30); MAGNESIUM 2.4 MG/DL (1.6-2.4); POTASSIUM 4.4 MMOL/L (3.6-5.0)
[2019-05-26] MEDS: CATHETER FLUSH 10 ML SYR IV SCH ×3 (06:07→22:12)
[2019-05-26] MEDS: FUROSEMIDE 40 MG/4 ML INJ (LASIX) IVP SCH ×2 (06:39→17:43)
[2019-05-26] MEDS ORDERED: NS IV 1000 ML 1,000 ML IV ONE (07:00)
[2019-05-26] MEDS: CALCITRIOL 0.25 MCG (ROCALTROL) CAPSULE PO SCH ×2 (07:28→10:32)
[2019-05-26] MEDS: KCL 20 MEQ TAB (K-DUR) PO SCH ×3 (07:28→20:26)
[2019-05-26] MEDS: ALLOPURINOL 100 MG (ZYLOPRIM) TAB PO SCH ×2 (07:28→10:32)
--- NOTE | 2019-05-26 07:29 | NUR ---
MATTRESS FINISHER CALLED AND SPOKE TO ANN LARIOS. INSTRUCTED TO GIVE AM DOSE OF ELIQUIS AND LOPRESSOR.
[2019-05-26] MEDS ORDERED: PSEUDOEPHEDRINE HCL 30 MG (SUDAFED) TAB PO PRN (07:45)
[2019-05-26 08:00] VITALS: BP 124/79
[2019-05-26] MEDS: meTOprolol TARTRATE 50 MG (LOPRESSOR) TAB PO SCH ×2 (08:58→20:26)
[2019-05-26] MEDS: APIXABAN 5 MG (ELIQUIS) TABLET PO SCH ×2 (08:58→20:26)
[2019-05-26] MEDS ORDERED: LORATADINE (CLARITIN) 10 MG TAB PO PRN (09:00)
[2019-05-26] MEDS: RT-ADVAIR HFA 115/21 MCG PER PUFF IH SCH ×2 (09:14→18:53)
--- NOTE | 2019-05-26 09:25 | NUR ---
DR. MASTERSON NOTIFIED OF UTI AND PT ON NO ABX.
--- NOTE | 2019-05-26 10:00 | NUR ---
GABRIELLA CANCELED FOR TODAY BY DR. SMITH. RESCHEDULED FOR TOMORROW WITH ADD ON FAXED TO NURSING EXECUTIVE.
--- NOTE | 2019-05-26 10:21 | Progress Note - Hospitalist ---
Subjective HPI/CC On Admission Date Seen by Provider: May 26, 2019 Time Seen by Provider: 10:08 Patient is a 68-year-old female well-known to me from recent admissions for CHF and COPD who presented to the emergency department with a chief complaint of shortness of breath. She was just here last week and discharged home. She stat es she felt well for a couple days and then developed worsening shortness of breath. She states it is worse with laying back and with any exertion. She also complains of some mild chest tightness. She reports compliance with her medications and with diet changes but when asked more specifically she did not take her medications yesterday morning and she also had eaten a burger the night before. She reports difficulty with knowing what to eat. She states she did not take her medication because she didn't want to have to urinate while on the way to her doctor's office yesterday. She has an appointment with [facility] in June. Subjective/Events-last exam patient reports feeling a little bit better today but still short of breath with exertion. We discussed at length about nutrition and diet choices. Also about compliance with meds and CPAP. While she initially stated she was compliant upon further questioning she states she hasn't worn her CPAP in 2 months because shes says it doesn't tell the [employer] company that she wears it. I advised her strongly the need for compliance with all of her therapies. Objective Exam Vital Signs Vital Signs Date Time Temp Pulse Resp B/P (MAP) Pulse Ox O2 Delivery O2 Flow Rate FiO2 05/26/19 09:15 95 Nasal Cannula 4.00 05/26/19 08:00 37.3 105 22 124/79 (94) Capillary Refill : Less Than 3 Seconds General Appearance: No Apparent Distress, Chronically ill, Obese Respiratory: Lungs Clear, No Respiratory Distress Cardiovascular: Regular Rate, Rhythm, No Murmur Extremity: Pedal Edema Neurologic/Psychiatric: Alert, Oriented x3 Results/Procedures Lab Laboratory Tests 05/26/19 04:04 Patient resulted labs reviewed. Imaging: Reviewed Imaging Report Assessment/Plan Assessment and Plan Assess & Plan/Chief Complaint Acute on chronic diastolic heart failure with preserved ejection fraction Chronic respiratory failure with hypoxia- at baseline 3lpm CAD -BNP Elevated -Continue IV Lasix, hopefully switch to oral tomorrow -Cardiology consulted -Echo n 12/30/19 shows preserved EF and grade 2 diastolic dysfunction with PA pressure of 70 Plan for GABRIELLA tomorrow -Significant issues with noncompliance with diet and meds - I discussed with length about compliance with meds and diet, dietary consult placed Acute kidney injury superimposed on chronic kidney disease Creatinine back to baseline IV diuresis as above but monitor creatinine closely COPD without acute exacerbation - Continue home meds - Pulm consulted, appreciate recs Paroxysmal atrial fibrillation Continue metoprolol, amiodarone, and Eliquis Debility Morbid Obesity PT/OT consulted - IRF declined Diagnosis/Problems Diagnosis/Problems (1) Pulmonary hypertension (2) Morbid obesity with BMI of 40.0-44.9, adult (3) Debility (4) Acute on chronic heart failure with preserved ejection fraction Status: Acute (5) COPD without exacerbation Status: Chronic (6) Acute kidney injury superimposed on chronic kidney disease Status: Acute (7) Acute and chronic respiratory failure with hypoxia Status: Acute (8) Paroxysmal atrial flutter Status: Chronic (9) ICD (implantable cardioverter-defibrillator) in place Status: Chronic Clinical Quality Measures DVT/VTE Risk/Contraindication: Risk Factor Score Per Nursin RFS Level Per Nursing on Admit: 4+=Very High XIN MASTERSON MD May 26, 2019 10:21
[2019-05-26] MEDS: AUGMENTIN 875 MG TAB (AMOXICILLIN/CLAVULANATE) PO SCH ×2 (10:32→17:43)
--- NOTE | 2019-05-26 10:40 | Physical Therapy Daily Note ---
PT Daily Note-Current Subjective Pt. in bed upon arrival and agrees to Rx. Pt. states repeatedly she has no problem with strength but does run short on air when up and about and has to stand while walking to rest. Pt. states this is about how she got around at home. Pt. comments that she has had a bloody nose and cant really breathe through her nose to get O2 well Pain Location: No Pain Reported Mental Status Patient Orientation: Normal For Age Attachments: Oxygen, IV Transfers SCALE: Activities may be completed with or without assistive devices. 9-Sdkxbkyqfk-ojuljzn completes the activity by him/herself with no assistance from a helper. 5-Set-up or Clean-up Assistance-helper sets up or cleans up; patient completes activity. [place] assists only prior to or following the activity. 4-Supervision or Touching Assistance-helper provides verbal cues and/or touching/steadying and/or contact guard assistance as patient completes activity. Assistance may be provided throughout the activity or intermittently. 3-Partial/Moderate Assistance-helper does LESS THAN HALF the effort. [place] li fts, holds or supports trunk or limbs, but provides less than half the effort. 2-Substantial/Maximal Assistance-helper does MORE THAN HALF the effort. [place] lifts or holds trunk or limbs and provides more than half the effort. 9-Pnuziueeg-wbdsfe does ALL the effort. Patient does none of the effort to complete the activity. Or, the assistance of 2 or more helpers is required for the patient to complete the activity. If activity was not attempted, code reason: 7-Patient Refused. 9-Not Applicable-not attempted and the patient did not perform the activity before the current illness, exacerbation or injury. 10-Not Attempted due to Environmental Limitations-(lack of equipment, weather restraints, etc.). 88-Not Attempted due to Medical Conditions or Safety Concerns. in out bed and chair SBA to Mod I Weight Bearing Right Lower Extremity: Right Weight Bearing/Tolerated Left Lower Extremity: Left Weight Bearing/Tolerated Gait Training Does the Patient Walk?: Yes Gait Assistive Device: FWW CGA to SBA 225 ft with standing rest breaks about every 75 ft . Exercises Seated Therapy Exercises: Ankle pumps, Sit to stand, Long arc quads, Hip flexion, Hip abd/add Seated Reps: 12 Assessment Current Status: Good Progress PT Alf Goals Alf Goals PT Quill Stripper Goals Time Frame: Jun 01, 2019 Roll Left & Right (QC): 6 Sit to Lying (QC): 6 Lying-Sitting on Side/Bed(QC): 6 Sit to Stand (QC): 6 Chair/Xaa-da-Nrotw Xfer(QC): 6 Walk 10 feet (QC): 6 Walk 50ft with 2 Turns (QC): 6 Walk 150 ft (QC): 6 PT Plan Treatment/Plan Treatment Plan: Continue Plan of Care Treatment Plan: Education, Functional Activity Rufina, Functional Strength, Gait, Safety, Therapeutic Exercise, Transfers Treatment Duration: Jun 01, 2019 Frequency: 6 times per week Estimated Hrs Per Day: .25 hour per day Patient and/or Family Agrees t: Yes Safety Risks/Education Patient Education: Gait Training, Correct Positioning, Safety Issues Teaching Recipient: Patient Teaching Methods: Demonstration, Discussion Response to Teaching: Verbalize Understanding, Return Demonstration, Reinforcement Needed Time/GCodes Time In: 1008 Time Out: 1031 Total Billed Treatment Time: 23 Total Billed Treatment 1,GT13m,EX10m SILVIA RUIZ S[employer]IOR [employer]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
[2019-05-26 12:00] VITALS: BP 108/72
--- NOTE | 2019-05-26 12:50 | Progress Note - Cardiology ---
Cardiology SOAP Progress Note Subjective: Shortness of breath as before No cp or palp Gen weakness and malaise No N/V Objective: I&O/Vital Signs 05/26/19 05/26/19 05/26/19 05/26/19 01:00 01:26 03:16 06:38 Temp 36.7 Pulse 104 106 104 Resp 20 B/P (MAP) 116/74 (88) Pulse Ox 97 99 O2 Delivery Nasal Cannula Nasal Cannula O2 Flow Rate 4.00 4.00 05/26/19 05/26/19 08:00 09:15 Temp 37.3 Pulse 105 Resp 22 B/P (MAP) 124/79 (94) Pulse Ox 96 95 O2 Delivery Nasal Cannula Nasal Cannula O2 Flow Rate 3.50 4.00 05/26/19 00:00 Intake Total 1240 ml Output Total 1300 ml Balance -60 ml Weight (Pounds): 243 Weight (Ounces): 0.2 Weight (Calculated Kilograms): 97.453416 Constitutional: AAO x 3, well-developed, well-nourished Respiratory: No accessory muscle use, No respiratory distress; chest expansion is symmetric, chest is bilaterally symmetric, other (diminshed lower lobes bilate) Cardiovascular: regular rate-rhythm; No JVD; S1 and S2 Gastrointestional: No tender; soft, round, audible bowel sounds Extremities: significant edema (2 (+) bilat LE swelling) Neurologic/Psychiatric: grossly intact (moves all extremities) Skin: No rash on exposed areas, No ulcerations on exposed areas; other (mutiple brusies and scrapes to arms bilat) Results/Procedures: Labs Laboratory Tests 05/26/19 04:04: White Blood Count 7.2, Red Blood Count 3.21L, Hemoglobin 8.9L, Hematocrit 30L, Mean Corpuscular Volume 93, Mean Corpuscular Hemoglobin 28, Mean Corpuscular Hemoglobin Concent 30L, Red Cell Distribution Width 16.1H, Platelet Count 271, Mean Platelet Volume 10.6H, Sodium Level 138, Potassium Level 4.4, Chloride Level 98, Carbon Dioxide Level 27, Anion Gap 13, Blood Urea Nitrogen 30H, Creatinine 1.73H, Estimat Glomerular Filtration Rate 36, BUN/Creatinine Ratio 17, Glucose Level 102, Calcium Level 9.1, Magnesium Level 2.4 Microbiology 05/24/19 Urine Culture - Final, Complete Escherichia coli 05/24/19 Influenza Types A,B Antigen (RADHA) - Final, Complete 05/24/19 Blood Culture - Preliminary, Resulted No growth A/P: Assessment: Multifactorial shortness of breath (see below) Card cath of 04/12/19: normal cors, LVEF 50%, LVEDP 17 mmHg, no significant MR on this study H/O nonischemic cardiomyopathy that is much improved now. Previously, she had an ejection fraction between 30 and 35% on serial echocardiograms, but most recent echo of May 08, [address] Pritchett showed LVEF 55-65%. Concentric LVH. Grade 2 diastolic dysfuncton. LA mild to mod dilated. Severe MR and TR. PASP 70-75mmHg Acute on chronic systolic and diastolic CHF due to nonischemic cardiomyopathy and non-compliance with diuretic regimen Type 2 OR likely secondary to transient hypoxia and acute on chronic renal dz Syncopal episode of undetermined etiology (May 06, 2019 per pt report). Device interrogation of 05/17/19 did not any significant arrhythmia that might account for syncope Anemia of undetermined etiology (possibly due to CKD) managed by the [facility] Intolerance to ORAL-inhib / ARB due to worsening renal function Suspected sarcoidosis, followed by Dr Rose. 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 Rose cloth folder hand S/p dual chamber ICD, pulse generator change out on 09-22-18 and subsequent superficial dehiscence at the device insertion site that healed by secondary intention. Device functioning normally per interrogation of Feb 2019 Paroxysmal atrial flutter with an intermittent rapid ventricular response. In July 2012, she received one shock ICD for atrial flutter but has not has not received any since. Interrogation of 05/17/19 shows brief episodes of A Fl but with good rate control Intolerance to digoxin (results in N/V and poor apetite) Chronic LBBB CKD-4, being followed by Dr Huff History of bronchial asthma, managed by Dr Rose Chronic anticoagulation with Eliquis therapy for stroke prophylaxis. Frequent epistaxis Obesity-hypoventilation syndrome and MAXIM, treated with CPAP, but she is noncompliant Pulmonary hypertension of undetermined etiology. H/o pulm hypertension on echo studies of 2011,2012, 2013, echo studies of 2015 and 2017 had shown PASP approx 30-35 mmHg. Most recent echo of Mar and Apr 2019 showed PASP in 60-80 mmHg range Mild carotid dz per u/s of Mar 2019 Plan: * Complex management issue - multiple admissions * Continue diuretics * Amiodarone d/c'd * GABRIELLA had to be postponed to tomorrow for logistic reasons * Monitor lab closely * I again discussed her case with Dr Dai today HENRY SMITH MD FACP FAC CCDS May 26, 2019 12:50
--- NOTE | 2019-05-26 13:19 | NUR ---
RD ASSESSMENT PMHx: HF; COPD; CKD; afib; HTN PT INTERACTION: Pt was awake and pleasant during consult for dietary education. Pt states current appetite is "not too bad" has been this way for some time. Note avg PO intake of 81%x1d, per chart review Pt states following a regular diet at home, consisting of canned vegetables and eating out a lot at fast food restaurants. Pt states no recent issues with n/v/c/d at this time. Note last BM was 05/26 and pt not currently on bowel regimen per chart review. Pt states no recent wt changes. Note unable to determine recent wt hx, per chart review. ABNORMAL NUTRITION-RELATED LAB VALUES LOW: HIGH: BUN 30; cr 1.73 Est. kcal needs: 5349-5916 kcal | 15-18 kcal/kg Est. Pro needs: 87-110 g Pro | 0.8-1.0 g Pro/kg PES STATEMENT: Food- and nutrition-related knowledge deficit (NB-1.1) related to uncertainty how to apply nutrition information as evidenced by pt interview | demonstrates inability to apply food- and nutrition-related information (i.e. food choices) INTERVENTION: Note pt is currently NPO. Recommend advancing to 2g Na diet, when medically able and as tolerated. Discussed with pt importance of watching sodium content in food choices. Will follow-up tomorrow with more in-depth discussion and provide handout. Will continue to follow and reassess as pt needs and status change. MONITOR/EVALUATE: PO Intake; Plan of Care; Hydration Status; Weight Status; Lab Values Paola Krishna, MS, RD, LD
--- NOTE | 2019-05-26 14:00 | NUR ---
Pastoral care visit.
--- NOTE | 2019-05-26 14:57 | Pulmonary Progress Note ---
Subjective Time Seen by a Provider: 14:56 Sepsis Event Evaluation Height, Weight, BMI Height: 5'5.00" Weight: 243lbs. 0.2oz. 97.272925fj; 40.69 BMI Method:Stated Exam Exam Vital Signs Date Time Temp Pulse Resp B/P (MAP) Pulse Ox O2 Delivery O2 Flow Rate FiO2 05/26/19 09:15 95 Nasal Cannula 4.00 05/26/19 08:00 Nasal Cannula 4.00 05/26/19 08:00 37.3 105 22 124/79 (94) 96 Nasal Cannula 3.50 05/26/19 06:38 104 05/26/19 03:16 36.7 106 20 116/74 (88) 99 Nasal Cannula 4.00 05/26/19 01:26 97 Nasal Cannula 4.00 05/26/19 01:00 104 05/25/19 23:20 37.1 106 20 138/87 (104) 98 Nasal Cannula 4.00 05/25/19 21:12 95 Nasal Cannula 4.00 05/25/19 20:00 98 Nasal Cannula 3.00 05/25/19 20:00 36.8 111 20 128/77 (94) 96 Nasal Cannula 4.00 05/25/19 19:00 109 05/25/19 18:35 95 Nasal Cannula 4.00 05/25/19 17:02 98 Nasal Cannula 4.00 05/25/19 15:53 37.2 112 28 119/64 (82) 96 Nasal Cannula 4.00 I & O 05/26/19 07:00 Intake Total 1240 ml Output Total 1700 ml Balance -460 ml Height & Weight Height: 5'5.00" Weight: 243lbs. 0.2oz. 97.970434iw; 40.69 BMI Method:Stated General Appearance: No Apparent Distress, Chronically ill, Obese Respiratory: Lungs Clear, No Respiratory Distress Cardiovascular: Regular Rate, Rhythm, No Murmur Capillary Refill: Less Than 3 Seconds Extremity: Pedal Edema Neurologic/Psychiatric: Alert, Oriented x3 Results Lab Laboratory Tests 05/25/19 04:40 05/26/19 04:04 Assessment/Plan Assessment/Plan Pulmonary edema CHFAE -continue Lasix -Noncompliant with Lasix Oxygen dependent COPD -Duonebs -Oxygen Atelectasis -Increase activity -IS MAXIM -Noncompliant with CPAP therapy Multiple hospitalizations PHILLIP MADRIGAL DO May 26, 2019 14:57
[2019-05-26 16:00] VITALS: BP 111/69
[2019-05-26 20:00] VITALS: BP 115/73
[2019-05-26] MEDS: FLUTICASONE NASAL SPRAY (FLONASE) 16 GM BTL NS SCH (20:26)
--- NOTE | 2019-05-26 21:30 | NUR ---
ASSUMED PT CARE AT THIS TIME. REPORT RECEIVED FROM HARRIET JAUREGUI. PT ASSESSED BY THIS RN, AGREE WITH PREVIOUS ASSESSMENT.
[2019-05-27] VITALS (15 sets, daily range): BP systolic 85–180; BP diastolic 43–74
[2019-05-27] MEDS: RT-ALBUTEROL/IPRATROPIUM 3 ML (DUONEB) VIAL INH SCH ×4 (02:39→13:58)
[2019-05-27] MEDS: RT-ADVAIR HFA 115/21 MCG PER PUFF IH SCH (07:16)
[2019-05-27] MEDS: AUGMENTIN 875 MG TAB (AMOXICILLIN/CLAVULANATE) PO SCH ×2 (07:46→16:19)
[2019-05-27] MEDS: FUROSEMIDE 40 MG/4 ML INJ (LASIX) IVP SCH ×2 (07:47→16:17)
[2019-05-27] MEDS: CATHETER FLUSH 10 ML SYR IV SCH ×2 (07:47→15:36)
[2019-05-27] MEDS ORDERED: LIDOCAINE 2% VISCOUS 15 ML UDC ONE (08:05)
[2019-05-27] MEDS ORDERED: NS IV 1000 ML 1,000 ML ONE (08:05)
[2019-05-27] MEDS ORDERED: MIDAZOLAM 5 MG/5 ML (VERSED) VIAL ONE (08:29)
[2019-05-27] MEDS ORDERED: fentaNYL INJECTION 100 MCG/2 ML AMP ONE (08:30)
[2019-05-27] MEDS ORDERED: HURRICAINE EXT TUBE (BENZOCAINE) ONE (08:41)
--- NOTE | 2019-05-27 09:12 | Discharge Summary ---
Diagnosis/Chief Complaint Date of Admission May 24, 2019 at 14:31 Date of Discharge Discharge Date: May 27, 2019 Admission Diagnosis CHF Exacerbation Primary Care Carlos Castellano MD Discharge Diagnosis (1) Pulmonary hypertension (2) Morbid obesity with BMI of 40.0-44.9, adult (3) Debility (4) Acute on chronic heart failure with preserved ejection fraction Status: Acute (5) COPD without exacerbation Status: Chronic (6) Acute kidney injury superimposed on chronic kidney disease Status: Acute (7) Acute and chronic respiratory failure with hypoxia Status: Acute (8) Paroxysmal atrial flutter Status: Chronic (9) ICD (implantable cardioverter-defibrillator) in place Status: Chronic Discharge Summary Procedures/Consulations Dr Steve Rose Discharge Physical Exam Allergies: Coded Allergies: No Known Drug Allergies (Unverified , 11/03/11) Vitals & I&Os Vital Signs Date Time Temp Pulse Resp B/P (MAP) Pulse Ox O2 Delivery O2 Flow Rate FiO2 05/27/19 12:08 104 05/27/19 11:54 37.0 20 135/65 (88) 95 Nasal Cannula 3.50 General Appearance: No Apparent Distress, Chronically ill, Obese Respiratory: Lungs Clear, No Respiratory Distress Cardiovascular: Regular Rate, Rhythm, No Murmur Skin: No Diaphoresis Neurologic/Psychiatric: Alert, Oriented x3 Hospital Course Patient is a 68-year-old female with past history of CHF and COPD who is admitted due to acutely decompensated congestive heart failure. She was treated with IV diarrhetic's and responded well. She underwent GABRIELLA which did show moderate atrial regurgitation. Discussions with cardiology were had with did not feel that this was a cooperative for her multiple readmissions. I discussed at length with her compliance with medications and diet. Though it firstly and she says she is very compliant upon further discussion she reveals that she misses multiple doses of medications and is not compliant with her diet. She states she eats fast food, chili cheese hotdogs, and other high sodium foods. Patient education and dietitian consultation to provide further education to patient. She was placed on a fluid restriction. Her symptoms improved and she was discharged home in stable condition. I did advise patient to keep a log of everything she eats and what time she takes her medicines and to bring this to her next doctor's appointment. Labs (last 24 hrs) Microbiology 05/24/19 Urine Culture - Final, Complete Escherichia coli 05/24/19 Influenza Types A,B Antigen (RADHA) - Final, Complete 05/24/19 Blood Culture - Preliminary, Resulted No growth Patient resulted labs reviewed. Imaging: Reviewed Imaging Report Discussion & Recommendations Discharge Planning: >30 minutes discharge planning Discharge Home Medications: Active Scripts Active Reported Claritin-D 12 Hour Tablet (Loratadine/Pseudoephedrine) 1 Each Tab.er.12h 1 Tab PO BID PRN Saline Nasal [place] (Sodium Chloride) 30 Ml [place] 1-2 Sprays NS QID PRN Furosemide 40 Mg Tablet 40 Mg PO BID Amiodarone HCl 200 Mg Tablet 200 Mg PO DAILY Iprat-Albut 0.5-3(2.5) mg/3 ml (Ipratropium/Albuterol Sulfate) 3 Ml Ampul.neb 3 Ml NEB QID PRN Advair 250-50 Diskus (Fluticasone/Salmeterol) 1 Each Blst.w.dev 1 Puff IH BID Spiriva Respimat 2.5MCG/ACTUATION (Tiotropium [place]) 4 Gm Mist.inhal 2 Puff INH DAILY Potassium Chloride 10 Meq Tablet.er 10 Meq PO DAILY Allopurinol 100 Mg Tablet 100 Mg PO DAILY Calcitriol 0.25 Mcg Capsule 0.25 Mcg PO MOWEFR One Daily For Women Tablet (Folic Acid/Mv,Fe,Other Min) 1 Each Tablet 1 Tab PO DAILY Clotrimazole-Betamethasone Crm (Clotrimazole/Betamethasone Dip) 15 Gm Cream..g. 1 Applic TOP BID PRN Vitamin D-3 (Cholecalciferol (Vitamin D3)) 2,000 Unit Capsule 2,000 Unit PO DAILY Tylenol (Acetaminophen) 325 Mg Tablet 650 Mg PO Q6H PRN Fluticasone Propionate 16 Gm [place].susp 1 [place] NS HS Ventolin Hfa (Albuterol Sulfate) 18 Gm Hfa.aer.ad 2 Puff INH QID PRN Metoprolol Tartrate 50 Mg Tablet 50 Mg PO BID Eliquis (Apixaban) 5 Mg Tablet 5 Mg PO BID Cetirizine HCl 10 Mg Tablet 10 Mg PO HS PRN Instructions to patient/family Please see electronic discharge instructions given to patient. Clinical Quality Measures DVT/VTE Risk/Contraindication: Risk Factor Score Per Nursin RFS Level Per Nursing on Admit: 4+=Very High Copy Copies To 1: XIN Winters MD May 27, 2019 09:12
[2019-05-27] MEDS ORDERED: NS IV 1000 ML 1,000 ML IV ONE (09:38)
[2019-05-27] MEDS: KCL 20 MEQ TAB (K-DUR) PO SCH ×2 (09:40→10:09)
[2019-05-27] MEDS: ALLOPURINOL 100 MG (ZYLOPRIM) TAB PO SCH ×2 (09:40→10:09)
[2019-05-27] MEDS ORDERED: LIDOCAINE 2% VISCOUS 15 ML UDC PO ONE (09:45)
[2019-05-27] MEDS ORDERED: fentaNYL INJECTION 100 MCG/2 ML AMP IV ONE (09:45)
[2019-05-27] MEDS ORDERED: MIDAZOLAM 5 MG/5 ML (VERSED) VIAL IV ONE (09:45)
[2019-05-27] MEDS: meTOprolol TARTRATE 50 MG (LOPRESSOR) TAB PO SCH (10:09)
[2019-05-27] MEDS: APIXABAN 5 MG (ELIQUIS) TABLET PO SCH (10:09)
--- NOTE | 2019-05-27 10:10 | NUR ---
BACK TO FLOOR FROM GABRIELLA. ALERT AND ORIENTED. BP 110/58, HR 104.
--- NOTE | 2019-05-27 11:11 | D/C HH Face to Face Order ---
D/C Face to Face Orders Instructions for Patient Via [facility], Patient Instructions/FollowUp: Continue to take her medications as written. Please use her CPAP every night. Please follow the dietary instructions we have given new. Please follow-up with Dr. Wilson and Dr. Rose as scheduled. Please follow-up with your primary care physician Dr. Castellano within the next week. Physician to follow Patient: Dr Castellano Discharge Diet for Home: Cardiac Diet, Low Sodium Diet Patient Data-Allergies,Ht & Wt Patient Allergies: Coded Allergies: No Known Drug Allergies (Unverified , 11/03/11) Height (Feet): 5 Height (Inches): 5.00 Weight (Pounds): 243 Weight (Ounces): 0.2 Home Health Need/Face to Face Date of Face to Face: May 27, 2019 Clinical Findings: Shortness of breath I have seen Pt rkqu-wa-ygxm: Yes Discharged To: Home Diagnosis/Conditions: Congestive heart failure, COPD Patient is Homebound due to: Shortness of breath/distress Homebound Status Due to the above stated illness, injury or surgical procedure (medical condition or diagnosis) and associated clinical findings, the patient is homebound because of his/her inability to leave home except with aid of a supportive device and/or person AND leaving the home requires a considerable and taxing effort or is medically contraindicated. Pt req the following assistanc: Aid of another person, [place] Home Health Nursing Orders Home Health Services Order: Nursing Services Med set up Home Health Infusion Therapy Line Start Date: May 24, 2019 Certify Stmt I certify that this patient is under my care and that I, a nurse practitioner or a physician; a gift shop assistant working with me, had a face to face encounter that - meets the physician face to face encounter requirements with this patient as dated. XIN MASTERSON MD May 27, 2019 11:11
--- NOTE | 2019-05-27 11:50 | Physical Therapy Daily Note ---
PT Daily Note-Current Subjective Patient is agreeable to therapy and is excited to get up and moving. Patient reports no pain at this time. Appearance Patient is in recliner with legs up, bedside table and call light within reach. Mental Status Patient Orientation: Person, Place, Time, Situation Attachments: Oxygen (4L) Transfers SCALE: Activities may be completed with or without assistive devices. 2-Duhrtmkytj-zxwxoin completes the activity by him/herself with no assistance from a helper. 5-Set-up or Clean-up Assistance-helper sets up or cleans up; patient completes activity. [place] assists only prior to or following the activity. 4-Supervision or Touching Assistance-helper provides verbal cues and/or touching/steadying and/or contact guard assistance as patient completes activity. Assistance may be provided throughout the activity or intermittently. 3-Partial/Moderate Assistance-helper does LESS THAN HALF the effort. [place] lifts, holds or supports trunk or limbs, but provides less than half the effort. 2-Substantial/Maximal Assistance-helper does MORE THAN HALF the effort. [place] lifts or holds trunk or limbs and provides more than half the effort. 6-Fchocdlsl-rfsqcv does ALL the effort. Patient does none of the effort to compl ete the activity. Or, the assistance of 2 or more helpers is required for the patient to complete the activity. If activity was not attempted, code reason: 7-Patient Refused. 9-Not Applicable-not attempted and the patient did not perform the activity before the current illness, exacerbation or injury. 10-Not Attempted due to Environmental Limitations-(lack of equipment, weather restraints, etc.). 88-Not Attempted due to Medical Conditions or Safety Concerns. Roll Left & Right (QC): 6 Lying to Sitting/Side of Bed(Q: 6 Sit to Stand (QC): 6 Weight Bearing Right Lower Extremity: Right Weight Bearing/Tolerated Left Lower Extremity: Left Weight Bearing/Tolerated Gait Training Does the Patient Walk?: Yes Distance: 200' Walk 10 feet (QC): 4 Walk 50 ft with 2 Turns(QC): 4 Walk 150 ft (QC): 4 Gait Persons Needed: 1 Gait Assistive Device: FWW Assessment Current Status: Good Progress Patient requires frequent rest breaks during ambulation due to SOA. Patient is able to get around well she just can't catch her breath. Patient uses FWW to aide in energy conservation while ambulating. PT Mcfp Goals Mcfp Goals PT Mcfp Goals Time Frame: Jun 01, 2019 Roll Left & Right (QC): 6 Sit to Lying (QC): 6 Lying-Sitting on Side/Bed(QC): 6 Sit to Stand (QC): 6 Chair/Bji-wx-Fufhp Xfer(QC): 6 Walk 10 feet (QC): 6 Walk 50ft with 2 Turns (QC): 6 Walk 150 ft (QC): 6 PT Plan Problem List Problem List: Activity Tolerance, Functional Strength, Safety, Gait, Transfer Treatment/Plan Treatment Plan: Continue Plan of Care Treatment Plan: Education, Functional Activity Rufina, Functional Strength, Gait, Safety, Therapeutic Exercise, Transfers Treatment Duration: Jun 01, 2019 Frequency: 6 times per week Estimated Hrs Per Day: .25 hour per day Patient and/or Family Agrees t: Yes Safety Risks/Education Patient Education: Gait Training, Transfer Techniques Teaching Recipient: Patient Teaching Methods: Discussion Response to Teaching: Reinforcement Needed Time/GCodes Time In: 1123 Time Out: 1135 Total Billed Treatment Time: 12 Total Billed Treatment 1 visit FA (12 minutes) SUZIE ASH PT May 27, 2019 11:50
--- NOTE | 2019-05-27 12:07 | Progress Note - Cardiology ---
Cardiology SOAP Progress Note Subjective: Shortness of breath improved compared to time of admission and now at its usual baseline No cp or palp or syncope Chronic mod leg swelling that waxes and wanes Objective: I&O/Vital Signs 05/27/19 05/27/19 05/27/19 05/27/19 00:31 01:00 02:39 04:50 Temp 37.1 37.2 Pulse 105 102 104 Resp 22 18 B/P (MAP) 180/71 (107) 128/70 (89) Pulse Ox 93 93 98 O2 Delivery Nasal Cannula Nasal Cannula Nasal Cannula O2 Flow Rate 3.50 3.50 3.50 05/27/19 05/27/19 05/27/19 05/27/19 07:00 07:16 08:07 08:36 Temp 36.9 Pulse 105 108 106 Resp 20 B/P (MAP) 128/74 (92) 90/53 (65) Pulse Ox 90 95 97 O2 Delivery Nasal Cannula Nasal Cannula Nasal Cannula O2 Flow Rate 3.50 3.50 5.00 05/27/19 05/27/19 05/27/19 05/27/19 08:40 08:44 08:48 08:53 Pulse 112 104 110 105 B/P (MAP) 91/55 (67) 110/56 (74) 108/58 (75) 111/59 (76) Pulse Ox 94 91 93 95 O2 Delivery Nasal Cannula Nasal Cannula Nasal Cannula Nasal Cannula O2 Flow Rate 5.00 5.00 5.00 5.00 05/27/19 05/27/19 05/27/19 05/27/19 09:01 09:06 09:15 09:32 Pulse 104 101 104 104 B/P (MAP) 93/55 (68) 89/52 (64) 85/43 (57) 89/45 (60) Pulse Ox 95 95 95 96 O2 Flow Rate 4.00 4.00 4.00 05/27/19 05/27/19 05/27/19 10:17 10:54 11:54 Temp 37.0 Pulse 106 Resp 20 B/P (MAP) 135/65 (88) Pulse Ox 93 95 O2 Delivery Nasal Cannula Nasal Cannula Nasal Cannula O2 Flow Rate 4.00 3.50 3.50 05/27/19 00:00 Intake Total 1500 ml Output Total 1045 ml Balance 455 ml Weight (Pounds): 243 Weight (Ounces): 0.2 Weight (Calculated Kilograms): [id number] Constitutional: AAO x 3, well-developed, well-nourished Respiratory: No accessory muscle use, No respiratory distress; chest expansion is symmetric, chest is bilaterally symmetric, other (diminshed lower lobes bilate) Cardiovascular: regular rate-rhythm; No JVD; S1 and S2 Gastrointestional: No tender; soft, round, audible bowel sounds Extremities: significant edema (2 (+) bilat LE swelling) Neurologic/Psychiatric: grossly intact (moves all extremities) Skin: No rash on exposed areas, No ulcerations on exposed areas; other (mutiple brusies and scrapes to arms bilat) Results/Procedures: Labs Microbiology 05/24/19 Urine Culture - Final, Complete Escherichia coli 05/24/19 Influenza Types A,B Antigen (RADHA) - Final, Complete 05/24/19 Blood Culture - Preliminary, Resulted No growth Laboratory Tests 05/26/19 04:04 A/P: Assessment: Multifactorial shortness of breath (see below) Mitral regurg. GABRIELLA of 05/27/19 showed severe MR, mod TR, RVSP 53 mmHg, LVEF approx 50% Card cath of 04/12/19: normal cors, LVEF 50%, LVEDP 17 mmHg, no significant MR on this study H/O nonischemic cardiomyopathy that is much improved now. Previously, she had an ejection fraction between 30 and 35% on serial echocardiograms, but most recent echo of May 08, [address] Pritchett showed LVEF 55-65%. Concentric LVH. Grade 2 diastolic dysfuncton. LA mild to mod dilated. Severe MR and TR. PASP 70-75mmHg Acute on chronic systolic and diastolic CHF due to nonischemic cardiomyopathy and non-compliance with diuretic regimen Type 2 SC likely secondary to transient hypoxia and acute on chronic renal dz Syncopal episode of undetermined etiology (May 06, 2019 per pt report). Device interrogation of 05/17/19 did not any significant arrhythmia that might account for syncope Anemia of undetermined etiology (possibly due to CKD) managed by the Med [facility] Intolerance to ORAL-inhib / ARB due to worsening renal function Suspected sarcoidosis, followed by Dr Rose. 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 Rose sales mgr S/p dual chamber ICD, pulse generator change out on 09-22-18 and subsequent superficial dehiscence at the device insertion site that healed by secondary intention. Device functioning normally per interrogation of Feb 2019 Paroxysmal atrial flutter with an intermittent rapid ventricular response. In July 2012, she received one shock ICD for atrial flutter but has not has not received any since. Interrogation of 05/17/19 shows brief episodes of A Fl but with good rate control Intolerance to digoxin (results in N/V and poor apetite) Chronic LBBB CKD-4, being followed by Dr Huff History of bronchial asthma, managed by Dr Rose Chronic anticoagulation with Eliquis therapy for stroke prophylaxis. Frequent epistaxis Obesity-hypoventilation syndrome and MAXIM, treated with CPAP, but she is noncompliant Pulmonary hypertension of undetermined etiology. H/o pulm hypertension on echo studies of 2011,2012, 2013, echo studies of 2015 and 2017 had shown PASP approx 30-35 mmHg. Most recent echo of Mar and Apr 2019 showed PASP in 60-80 mmHg range Mild carotid dz per u/s of Mar 2019 Plan: * Complex management issue * GABRIELLA results note above. I have called Dr Bran at [facility], discussed the case with him and requested eval for MV surgery. He will see her on 06/01/19 * Close outpt f/u advised HENRY SMITH MD FACP FAC CCDS May 27, 2019 12:07
--- NOTE | 2019-05-27 14:00 | NUR ---
AMANDA CATHETER REMOVED.
--- NOTE | 2019-05-27 14:06 | NUR ---
Discussed and provided handout on Heart Healthy diet and nutrition label reading. Explained handout as it pertains to fat, sodium and fiber content in foods. Pt asked questions about different types of vegetables (fresh vs. canned). Explained method to lower sodium in canned vegetables by placing vegetables in a colander and rinsing them off before putting them into a pot. Pt asked questions about different soups she could have. Explained to pt that as long as the sodium content was less than 300 mg per serving of the soup, she could have it. Pt appeared confident in the suggestions provided and stated she felt better knowing what to watch for. Provided contact information should pt have any questions upon discharge. Paola Krishna, MS, RD, LD
--- NOTE | 2019-05-27 14:37 | NUR ---
GABRIELLA REPORT, DISCHARGE SUMMARY, AND CARDIOLOGY PROGRESS NOTE FROM TODAY (05/27/2019) FAXED TO DR. RANDLE'S OFFICE AND DR. ZHAO'S OFFICE WITH CONFIRMATION.
--- NOTE | 2019-05-27 14:44 | NUR ---
APPOINTMENT WITH CARDIAC REHAB ON 06/16/2019 AT 1:00 PM.
--- NOTE | 2019-05-27 14:45 | NUR ---
PER DR. MASTERSON... CONTINUE 1500 CC FLUID RESTRICTION AT [place]. 800- DAY, 400- EVENING, 300- NIGHT. PATIENT INFORMED AND VERBALIZED UNDERSTANDING.
--- NOTE | 2019-05-27 15:36 | NUR ---
UP TO THE BS. VOIDED 100 MLS.
--- NOTE | 2019-05-27 16:07 | NUR ---
CM/SS visited with patient for discharge planning. Plan: The patient will return home with Home Health. Home Health: The patient was provided with a preference form. The patient verbalized that they would like to have [facility] . CM/SS faxed referral to [facility]. Summary: The patient did talk about things that might be bothering her breathing in the home such as sprays and dust. The patient is going to try and keep track of different things in the home that affects him.
== END 2019-05-27 17:04 | disposition home health service (06) | DRG 280 ==
LOC: EDUNIT# 10:43 → ER 10:45 → 4TH 14:31
PROVIDERS: ADMIT Family Medicine; ATTEND Family Medicine
DX: I13.0 Hypertensive heart and chronic kidney disease with heart failure and stage 1 through stage 4 chronic kidney disease, or unspecified chronic kidney disease (principal); I21.A1 Myocardial infarction type 2; I50.43 Acute on chronic combined systolic (congestive) and diastolic (congestive) heart failure; N18.4 Chronic kidney disease, stage 4 (severe); J96.11 Chronic respiratory failure with hypoxia; E66.2 Morbid (severe) obesity with alveolar hypoventilation; N17.9 Acute kidney failure, unspecified; I48.92 Unspecified atrial flutter; J98.11 Atelectasis; Z68.41 Body mass index [BMI] 40.0-44.9, adult; J44.9 Chronic obstructive pulmonary disease, unspecified; I42.9 Cardiomyopathy, unspecified; I48.0 Paroxysmal atrial fibrillation; I44.7 Left bundle-branch block, unspecified; I27.20 Pulmonary hypertension, unspecified; I25.10 Atherosclerotic heart disease of native coronary artery without angina pectoris; I08.1 Rheumatic disorders of both mitral and tricuspid valves; Z91.14 Patient's other noncompliance with medication regimen; D63.1 Anemia in chronic kidney disease; D86.9 Sarcoidosis, unspecified; R53.81 Other malaise; Z79.01 Long term (current) use of anticoagulants; Z95.810 Presence of automatic (implantable) cardiac defibrillator; Z90.710 Acquired absence of both cervix and uterus; Z90.49 Acquired absence of other specified parts of digestive tract; Z99.81 Dependence on supplemental oxygen; Z23 Encounter for immunization
CPT/HCPCS: 36415; 51702; 71045; 80048; 80053; 81000; 82550; 82553; 83735; 83874; 83880; 84484; 85007; 85025; 85027; 85610; 85730; 87040; 87077; 87081; 87088; 87186; 87804; 93005; 93041; 93312; 93320; 93325; 94640; 94664; 94760; 96374

== ENCOUNTER 2019-06-12 19:13 | Observation (INO) | payer BC, MEDICARE ==
[2019-06-12] VITALS (8 sets, daily range): BP systolic 113–142; BP diastolic 56–99
[~2019-06-12] VITALS: Ht 165.1 cm; Wt 104.8 kg
[~2019-06-12 19:13] MED LIST changes: +CHOL200012 PO; +DILT-27 PO; +POTA-51 PO; +POTA10TA PO
[2019-06-12] MEDS ORDERED: RT-ALBUTEROL/IPRATROPIUM 3 ML (DUONEB) VIAL ONE (19:15)
[2019-06-12] MEDS ORDERED: DEXAMETHASONE 4 MG/ML SDV (DECADRON) ONE (19:16)
[2019-06-12] MEDS ORDERED: methylPREDNISolone 125 MG (Solu-MEDROL) VIAL IV STA (19:22)
[2019-06-12] MEDS ORDERED: RT-ALBUTEROL/IPRATROPIUM 3 ML (DUONEB) VIAL INH ONE (19:30)
[2019-06-12] MEDS ORDERED: DEXAMETHASONE 4 MG/ML SDV (DECADRON) IH ONE (19:30)
--- NOTE | 2019-06-12 19:34 | ED Respiratory ---
General Chief Complaint: Respiratory Problems Stated Complaint: SOA Source: patient, old records History of Present Illness Date Seen by Provider: Jun 12, 2019 Time Seen by Provider: 19:15 Initial Comments PT ARRIVES VIA EMS FROM HOME C/O SHORTNESS OF BREATH--CHRONIC PROBLEM, STATES IT GOT MUCH WORSE THIS EVENING HAS USED NEBULIZER AT LEAST 4 TIMES TODAY, LAST TIME WAS JUST PRIOR TO ARRIVAL. HAS ALSO USED INHALER SEVERAL TIMES TODAY PT IS NORMALLY ON O2 AT 3 1/2 L/NC CONTINUOUSLY, EMS PLACED PT ON 8L ON NRB NO FEVER STATES SHE HAD A COUGHING SPELL EARLIER, AND HAD CLEAR SPUTUM AT THAT TIME, OTHERWISE NO SIGNIFICANT COUGH NO FEVER, SWEATS OR CHILLS NO CHEST PAIN, EXCEPT WITH DEEP BREATHS NO SWELLING IN LEGS/ FEET OR PAIN IN CALVES STATES SHE "FELT GOOD" EARLIER TODAY CLAIMS THAT THE ONLY THING SHE HAS HAD TO EAT TODAY, WAS SAUSAGE AND EGGS, THIS AM. CLAIMS THE ONLY THINGS SHE HAS HAD TO DRINK TODAY WERE COFFEE, TEA AND WATER. PT HAS HAD A MULTITUDE OF VISITS, THIS BEING HER 8TH VISIT SINCE 03/14/19--HAS BEEN ADMITTED EVERY TIME -05/07-05/10 FOR CHF, COPD, ELEVATED TROPONIN -05/17-05/19 FOR CHF, COPD -05/24-05/27 FOR CHF, COPD -05/30-06/02 FOR CHF, COPD, RESPIRATORY FAILURE PT HAD CARDIAC CATH 04/11/19--EF50%, NO INTERVENTION. PT STATES SHE SAW DR. SMITH THIS WEEK FOR FOLLOW UP. NO CHANGES IN MEDICATIONS WAS SUPPOSED TO SEE A CARDIOVASCULAR SURGEON AT [employer] THIS LAST FRIDAY, BUT DIDN'T GO. HAS REPORTEDLY HAD SEVERAL APPOINTMENTS, BUT HAS NOT BEEN TO ANY OF THEM, FOR VARIOUS REASONS. PT HAS SEVERE MITRAL REGURGITATION/TRICUSPID REGURG PT IS ON ELIQUIS, AND DENIES ANY MISSED DOSES PT HAS HAD ONGOING ISSUES WITH NOSEBLEEDS, AND HAD ONE TODAY. PCP: [facility] NATIONAL SALES CONSULTANT: DR. SMITH CUSTOMER CONSULTING MANAGER: DR. MADRIGAL Allergies and Home Medications Allergies Coded Allergies: No Known Drug Allergies (Unverified , 11/03/11) Home Medications Acetaminophen 325 Mg Tablet, 650 MG PO Q6H PRN for PAIN-MILD, (Reported) Albuterol Sulfate 18 Gm Hfa.aer.ad, 2 PUFF INH QID PRN for SHORTNESS OF BREATH, (Reported) Allopurinol 100 Mg Tablet, 100 MG PO DAILY, (Reported) Apixaban 5 Mg Tablet, 5 MG PO BID, (Reported) Calcitriol 0.25 Mcg Capsule, 0.25 MCG PO MoWeFr, (Reported) Cefdinir 300 Mg Capsule, 300 MG PO BID Prescribed by: STEFFI TONY on 06/02/191203 Cetirizine HCl 10 Mg Tablet, 10 MG PO HS PRN for ALLERGIES, (Reported) Cholecalciferol (Vitamin D3) 50 Mcg Capsule, 50 MCG PO DAILY, (Reported) Clotrimazole/Betamethasone Dip 15 Gm Cream..g., 1 APPLIC TOP BID PRN for RASH, (Reported) Diltiazem HCl 120 Mg Cap.er.24h, 120 MG PO DAILY Prescribed by: STEFFI TONY on 06/02/191203 Fluticasone Propionate 16 Gm [employer].susp, 1 SPRAY NS HS, (Reported) Fluticasone/Salmeterol 1 Each Blst.w.dev, 1 PUFF IH BID, (Reported) Folic Acid/Mv,Fe,Other Min 1 Each Tablet, 1 TAB PO DAILY, (Reported) Furosemide 40 Mg Tablet, 80 MG PO BID Prescribed by: STEFFI TONY on 06/02/191203 Ipratropium/Albuterol Sulfate 3 Ml Ampul.neb, 3 ML NEB QID PRN for SHORTNESS OF BREATH, (Reported) Metoprolol Tartrate 50 Mg Tablet, 50 MG PO BID, (Reported) Potassium Chloride 20 Meq Tablet.er, 20 MEQ PO DAILY Prescribed by: STEFFI TONY on 06/02/191203 Sodium Chloride 30 Ml [employer], 1-2 SPRAYS NS QID PRN for DRY NOSE, (Reported) Tiotropium [place] 4 Gm Mist.inhal, 2 PUFF INH DAILY, (Reported) Patient Home Medication List Home Medication List Reviewed: Yes Review of Systems Review of Systems Constitutional: no symptoms reported; No chills, No diaphoresis, No dizziness, No fever EENTM: see HPI, epistaxis Respiratory: see HPI, cough, dyspnea on exertion, orthopnea, phlegm, short of breath, wheezing Cardiovascular: see HPI, chest pain (ONLY WITH DEEP BREATHS); No edema, No palpitations, No syncope Gastrointestinal: no symptoms reported; No abdominal pain, No nausea, No vomiting Genitourinary: no symptoms reported Musculoskeletal: no symptoms reported; No back pain Skin: no symptoms reported Psychiatric/Neurological: No Symptoms Reported Hematologic/Lymphatic: See HPI, Anemia, Easy Bleeding, Easy Bruising Immunological/Allergic: no symptoms reported Past Avitwzb-Lqcovh-Labokc Hx Past Med/Social Hx: Reviewed and Corrections made Patient Social History Alcohol Use: Denies Use Recreational Drug Use: No Smoking Status: Never a Smoker 2nd Hand Smoke Exposure: Yes (IN PAST, BUT NOT FOR 20 YEARS) Recent Hopitalizations: Yes (MULTIPLE ADMITS SINCE 03/2019) Immunizations Up To Date Date of Influenza Vaccine: Feb 06, 2012 Seasonal Allergies Seasonal Allergies: Yes Past Medical History Surgeries: Yes (Appy and hysterectomy ; CARDIAC CATH 04/11/19-NO INTERVENTION;) Appendectomy, Cardiac, Defibrillator, Hysterectomy Respiratory: Yes (CHRONIC RESPIRATORY FAILURE; OBESITY/HYPOVENTILATION;PULMONARY HTN) Pneumonia, Sleep Apnea, COPD Currently Using CPAP: Yes (WITH O2) Currently Using BIPAP: No Cardiac: Yes (CHF;LBBB;MR/TR;NON-ISC CARDIOMYOPATHY WITH DEFIB-MULTIPLE SHOCKS FROM DEFIB) Atrial Fibrillation, Cardiomyopathy, Chronic Edema/Swelling, High Cholesterol, Hypertension, Valvular Heart Disease Neurological: No 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 No Pertinent Family Hx PSH: -CARDIAC CATH--04/11/19--NO INTERVENTION; EF 50%, NO SIGNIFICANT CAD PMH: -SEVERE MITRAL REGURGITATION/TRIUCUSPIC REGURG -MILD CAROTID DISEASE Physical Exam Vital Signs - First Documented 06/12/19 19:27 Pulse Ox 93 Capillary Refill : Height: 5'5.00" Weight: 243lbs. 0.2oz. 97.713502tx; 40.24 BMI Method:Stated General Appearance: mild distress, other (MILD TO MODERATE DYSPNEA, TALKS IN SHORT SENTENCES. ) HEENT: PERRL/EOMI, other (DRIED BLOOD IN NARES. FEW ERYTHEMATOUS PATCHES TO FACE. ) Neck: normal inspection Respiratory: respiratory distress (MILD), decreased breath sounds (DECREASED AERATION IN ALL LUNG VEGA, ESPECIALLY IN BASES); No rales, No rhonchi, No wheezing; other (RESPIRATIONS SHALLOW AND MILDLY TACHYPNEIC. 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, no motor/sensory deficits, a lert, normal mood/affect, oriented x 3 Skin: normal color, warm/dry Focused Exam Lactate Level 06/12/19 19:30: Lactic Acid Level 1.90 Lactic Acid Level Laboratory Tests Test 06/12/19 19:30 Lactic Acid Level 1.90 MMOL/L (0.50-2.00) Progress/Results/Core Measures Suspected Sepsis SIRS Temperature: Pulse: Respiratory Rate: Laboratory Tests 06/12/19 19:30: White Blood Count 6.6 Blood Pressure / Mean: 06/12/19 19:30: Lactic Acid Level 1.90 Laboratory Tests 06/12/19 19:22: Creatinine 2.06H, Total Bilirubin 0.6 06/12/19 19:30: INR Comment 1.6H, Platelet Count 262 Results/Orders Lab Results Laboratory Tests Test 06/12/19 19:22 06/12/19 19:30 06/12/19 19:42 Range/Units Sodium Level 138 135-145 MMOL/L Potassium Level 4.0 3.6-5.0 MMOL/L Chloride Level 97 L 98-107 MMOL/L Carbon Dioxide Level 28 21-32 MMOL/L Anion Gap 13 5-14 MMOL/L Blood Urea Nitrogen 32 H 7-18 MG/DL Creatinine 2.06 H 0.60-1.30 MG/DL Estimat Glomerular Filtration Rate 29 BUN/Creatinine Ratio 16 Glucose Level 112 H 70-105 MG/DL Calcium Level 9.8 8.5-10.1 MG/DL Corrected Calcium 9.9 8.5-10.1 MG/DL Magnesium Level 2.0 1.6-2.4 MG/DL Total Bilirubin 0.6 0.1-1.0 MG/DL Aspartate Amino Transf (AST/SGOT) 23 5-34 U/L Alanine Aminotransferase (ALT/SGPT) 23 0-55 U/L Alkaline Phosphatase 69 40-136 U/L Myoglobin 102.6 H 10.0-92.0 NG/ML Troponin I 0.048 H <0.028 NG/ML Total Protein 7.7 6.4-8.2 GM/DL Albumin 3.9 3.2-4.5 GM/DL White Blood Count 6.6 4.3-11.0 10^3/uL Red Blood Count 3.29 L 4.35-5.85 10^6/uL Hemoglobin 8.7 L 11.5-16.0 G/DL Hematocrit 29 L 35-52 % Mean Corpuscular Volume 89 80-99 FL Mean Corpuscular Hemoglobin 26 25-34 PG Mean Corpuscular Hemoglobin Concent 30 L 32-36 G/DL Red Cell Distribution Width 15.9 H 10.0-14.5 % Platelet Count 262 130-400 10^3/uL Mean Platelet Volume 9.9 7.4-10.4 FL Neutrophils (%) (Auto) 79 H 42-75 % Lymphocytes (%) (Auto) 12 12-44 % Monocytes (%) (Auto) 8 0-12 % Eosinophils (%) (Auto) 1 0-10 % Basophils (%) (Auto) 0 0-10 % Neutrophils # (Auto) 5.2 1.8-7.8 X 10^3 Lymphocytes # (Auto) 0.8 L 1.0-4.0 X 10^3 Monocytes # (Auto) 0.5 0.0-1.0 X 10^3 Eosinophils # (Auto) 0.1 0.0-0.3 10^3/uL Basophils # (Auto) 0.0 0.0-0.1 10^3/uL Prothrombin Time 19.8 H 12.2-14.7 SEC INR Comment 1.6 H 0.8-1.4 Activated Partial Thromboplast Time 28 24-35 SEC Lactic Acid Level 1.90 0.50-2.00 MMOL/L B-Type Natriuretic Peptide 1348.0 H <100.0 PG/ML Blood Gas Puncture Site LEFT RADIAL Blood Gas Patient Temperature 37.0 Arterial Blood pH 7.52 H 7.37-7.43 Arterial Blood Partial Pressure CO2 38 35-45 MMHG Arterial Blood Partial Pressure O2 65 L 79-93 MMHG Arterial Blood HCO3 30 H 23-27 MMOL/L Arterial Blood Total CO2 31.5 H 21.0-31.0 MMOL/L Arterial Blood Oxygen Saturation 92 L 94-100 % Arterial Blood Base Excess 7.0 H -2.5-2.5 MMOL/L Ren Test POSITIVE Blood Gas Ventilator Setting NO Blood Gas Inspired Oxygen 2L Micro Results Microbiology 06/12/19 Influenza Types A,B Antigen (RADHA) - Final, Complete My Orders Orders - TANA SHAW DO Albuterol/Ipra Inhalation Soln (Duoneb I (06/12/19 19:15) Dexamethasone Injection (Decadron Inject (06/12/19 19:16) Ed Iv/Invasive Line Start (06/12/19 19:22) Ekg Tracing (06/12/19 19:22) O2 (06/12/19 19:22) Monitor-Rhythm Ecg Trace Only (06/12/19 19:22) Chest 1 View, Ap/Pa Only (06/12/19 19:22) BNP (06/12/19 19:22) Cbc With Automated Diff (06/12/19 19:22) Comprehensive Metabolic Panel (06/12/19 19:22) Lactic Acid Analyzer (06/12/19 19:22) Magnesium (06/12/19 19:22) Protime With Inr (06/12/19 19:22) Partial Thromboplastin Time (06/12/19 19:22) Blood Culture (06/12/19 19:22) Influenza A And B Antigens (06/12/19 19:22) Myoglobin Serum (06/12/19 19:22) Troponin I (06/12/19 19:22) Albuterol/Ipra Inhalation Soln (Duoneb I (06/12/19 19:30) Dexamethasone Injection (Decadron Inject (06/12/19 19:30) Rt Request For Service (06/12/19 19:22) Methylprednisolone Sod Succ (Solu-Medrol (06/12/19 19:22) Svn Small Volume Nebulizer (06/12/19 19:22) Arterial Blood Gas (06/12/19 19:26) Furosemide Injection (Lasix Injection) (06/12/19 20:15) Catheter(Urinary) Insert & Ass 03,15 (2/1/20 20:12) Ua Culture If Indicated (06/12/19 20:12) Medications Given in ED Current Medications Medications Dose Ordered Sig/Jennifer Route Start Time Stop Time Status Last Admin Dose Admin Albuterol/ Ipratropium 3 ml ONCE ONCE INH 06/12/19 19:30 06/12/19 19:31 DC 06/12/19 19:34 3 ML Dexamethasone Sodium Phosphate 20 mg ONCE ONCE IH 06/12/19 19:30 06/12/19 19:31 DC 06/12/19 19:34 20 MG Furosemide 80 mg ONCE ONCE IVP 06/12/19 20:15 06/12/19 20:27 DC 06/12/19 21:05 80 MG Vital Signs/I&O 06/12/19 06/12/19 06/12/19 06/12/19 19:13 19:13 19:27 20:12 Temp 37.0 37.0 Pulse 96 93 Resp 22 20 B/P (MAP) 142/85 (104) 117/45 Pulse Ox 93 99 O2 Delivery Nasal Cannula Nasal Cannula Nasal Cannula Nasal Cannula O2 Flow Rate 3.00 3.00 2.00 3.00 Capillary Refill : Progress Note : Progress Note GIVEN LASIX, SOLU-MEDROL AND NEB TREATMENTS WITH IMPROVEMENT IN SYMPTOMS--O2 SATS UPPER 90'S TO 100% ON 3L/NC, INCREASED AERATION, LESS DYSPNEIC, BUT STILL WITH SOME RESIDUAL MILD DYSPNEA. NO DETERIORATION IN PT'S CONDITION DURING ER STAY ECG Initial ECG Impression Date: Jun 12, 2019 Initial ECG Impression Time: 19:36 Initial ECG Rate: 97 Initial ECG Rhythm: A Fib/Flutter (LBBB) Initial ECG Comparisson: Unchanged Diagnostic Imaging Comments CXR--MULTIFOCAL LUNG CONSOLIDATIONS OF AT LEAST THE RIGHT LUNG, LEFT MID AND LOWER LUNG DIFFICULT TO EVALUATE, CARDIOMEGALY, UNCHANGED FROM PREVIOUS ON 05/31/19. PER RADIOLOGIST REPORT AT 0837 Reviewed: Reviewed by Me Departure Communication (Admissions) 2024--SPOKE WITH DR. MASTERSON, HOSPITALIST, ACCEPTS PT FOR ADMIT. WILL CONSULT DR. MADRIGAL IN AM. Impression Primary Impression: Acute and chronic respiratory failure with hypoxia Additional Impressions: COPD with acute exacerbation Acute exacerbation of CHF (congestive heart failure) ICD (implantable cardioverter-defibrillator) in place PERSISTENTLY ELEVATED TROPONIN Acute on chronic renal failure Morbid obesity Chronic atrial fibrillation Frequent nosebleeds Chronic anemia Mitral regurgitation Disposition: ADMITTED INPATIENT Condition: Improved Departure-Patient Inst. Referrals: CAPRI CARCAMO MD (PCP/Family) Primary Care Physician TANA SHAW DO Jun 12, 2019 19:34
[2019-06-12 19:40] LABS: BASOPHILS % (AUTO) 0 % (0-10); EOSINOPHILS # (AUTO) 0.1 10^3/uL (0.0-0.3); EOSINOPHILS % (AUTO) 1 % (0-10); HEMATOCRIT 29 % (35-52); HEMOGLOBIN 8.7 G/DL (11.5-16.0); LYMPHOCYTES # (AUTO) 0.8 X 10^3 (1.0-4.0); LYMPHOCYTES % (AUTO) 12 % (12-44); MEAN CORPUSCULAR HEMOGLOBIN 26 PG (25-34); MEAN CORPUSCULAR HGB CONC 30 G/DL (32-36); MEAN CORPUSCULAR VOLUME 89 FL (80-99); MEAN PLATELET VOLUME 9.9 FL (7.4-10.4); MONOCYTES # (AUTO) 0.5 X 10^3 (0.0-1.0); MONOCYTES % (AUTO) 8 % (0-12); NEUTROPHILS # (AUTO) 5.2 X 10^3 (1.8-7.8); NEUTROPHILS % (AUTO) 79 % (42-75); PLATELET COUNT 262 10^3/uL (130-400); RED CELL DISTRIBUTION WIDTH 15.9 % (10.0-14.5); WHITE BLOOD COUNT 6.6 10^3/uL (4.3-11.0)
[2019-06-12 19:51] LABS: INR 1.6 (0.8-1.4); PROTHROMBIN TIME PATIENT 19.8 SEC (12.2-14.7)
[2019-06-12 19:59] LABS: ALBUMIN 3.9 GM/DL (3.2-4.5); BILIRUBIN,TOTAL 0.6 MG/DL (0.1-1.0); CALCIUM 9.8 MG/DL (8.5-10.1); CREATININE SERUM 2.06 MG/DL (0.60-1.30); TOTAL PROTEIN 7.7 GM/DL (6.4-8.2)
[2019-06-12 20:06] LABS: ABG OXYGEN SATURATION 92 % (94-100); ABG PCO2 38 MMHG (35-45); ABG PH 7.52 (7.37-7.43); ABG PO2 65 MMHG (79-93); ABG TCO2 31.5 MMOL/L (21.0-31.0); ALLENS TEST POSITIVE; INSPIRED O2 2L; VENTILATOR NO
[2019-06-12] MEDS ORDERED: FUROSEMIDE 40 MG/4 ML INJ (LASIX) IVP ONE (20:15)
--- NOTE | 2019-06-12 20:33 | Diagnostic Imaging Report ---
EXAMINATION: Chest radiograph, portable AP view. DATE: 06/12/2019 7:58 PM. INDICATION: 68-year-old female, shortness of breath COMPARISON: May 31, 2019. FINDINGS: There is a left-sided cardiac assist device with leads. There is redemonstrated cardiomegaly. There is no identified pneumothorax. There is multifocal lung consolidation at least on the right. There is difficulty evaluating the left mid and lower lung zone, given heart size and overlying material. IMPRESSION: Multifocal consolidation involving at least the right lung without significant interval change since comparison exam. Dictated by: Dictated on workstation # [id number]
[2019-06-12 21:25] LABS: BILIRUBIN,URINE NEGATIVE (NEGATIVE); CLARITY,URINE CLEAR; COLOR,URINE YELLOW; GLUCOSE, URINE (UA) NEGATIVE (NEGATIVE); KETONES,URINE NEGATIVE (NEGATIVE); LEUKOCYTE ESTERASE ,URINE 1+ (NEGATIVE); NITRITE,URINE NEGATIVE (NEGATIVE); PROTEIN,URINE NEGATIVE (NEGATIVE)
[2019-06-12 21:51] LABS: BACTERIA,URINE FEW /HPF
[2019-06-13] VITALS (7 sets, daily range): BP systolic 109–148; BP diastolic 65–84
--- NOTE | 2019-06-13 00:27 | NUR ---
DUONEB Q6/QID AND Q2 PRN USE AEROBIKKA TID RT TO REASSESS OR REEVALUATE IN 72 HOURS OR PRN IF NEEDED. INITIATE 02 TO KEEP SAT GREATER THEN 90% Addendum: 06/13/19 at 0027 by UZMA MADRIGAL RT Amended: Links added.
[2019-06-13] MEDS ORDERED: RT-ALBUTEROL/IPRATROPIUM 3 ML (DUONEB) VIAL INH PRN (00:30)
[2019-06-13] MEDS ORDERED: methylPREDNISolone 125 MG (Solu-MEDROL) VIAL IV SCH (01:30)
[2019-06-13] MEDS: RT-ALBUTEROL/IPRATROPIUM 3 ML (DUONEB) VIAL INH SCH ×4 (02:26→22:03)
[2019-06-13 03:38] LABS: BASOPHILS % (AUTO) 0 % (0-10); EOSINOPHILS % (AUTO) 0 % (0-10); HEMATOCRIT 29 % (35-52); HEMOGLOBIN 8.6 G/DL (11.5-16.0); LYMPHOCYTES # (AUTO) 0.2 X 10^3 (1.0-4.0); LYMPHOCYTES % (AUTO) 3 % (12-44); MEAN CORPUSCULAR HEMOGLOBIN 27 PG (25-34); MEAN CORPUSCULAR HGB CONC 30 G/DL (32-36); MEAN CORPUSCULAR VOLUME 89 FL (80-99); MEAN PLATELET VOLUME 10.6 FL (7.4-10.4); MONOCYTES % (AUTO) 1 % (0-12); NEUTROPHILS # (AUTO) 6.6 X 10^3 (1.8-7.8); NEUTROPHILS % (AUTO) 96 % (42-75); PLATELET COUNT 263 10^3/uL (130-400); RED CELL DISTRIBUTION WIDTH 16.1 % (10.0-14.5); WHITE BLOOD COUNT 6.9 10^3/uL (4.3-11.0)
[2019-06-13 04:15] LABS: ALBUMIN 3.8 GM/DL (3.2-4.5); BILIRUBIN,TOTAL 0.7 MG/DL (0.1-1.0); CALCIUM 9.7 MG/DL (8.5-10.1); CREATININE SERUM 1.97 MG/DL (0.60-1.30); POTASSIUM 3.8 MMOL/L (3.6-5.0); TOTAL PROTEIN 7.5 GM/DL (6.4-8.2)
[2019-06-13 04:29] LABS: CREATINE KINASE MB 2.1 NG/ML (<6.6)
[2019-06-13 04:32] LABS: LYMPHOCYTES % (MANUAL) 1 %; NEUTROPHILS % (MANUAL) 99 %
--- NOTE | 2019-06-13 04:43 | Pulmonary Consultation ---
History of Present Illness History of Present Illness Date Seen by Provider: Jun 13, 2019 Time Seen by Provider: 04:39 Date of Admission Allergies and Home Medications Allergies Coded Allergies: No Known Drug Allergies (Unverified , 11/03/11) Home Medications Acetaminophen 325 Mg Tablet, 650 MG PO Q6H PRN for PAIN-MILD, (Reported) Albuterol Sulfate 18 Gm Hfa.aer.ad, 2 PUFF INH QID PRN for SHORTNESS OF BREATH, (Reported) Allopurinol 100 Mg Tablet, 100 MG PO DAILY, (Reported) Apixaban 5 Mg Tablet, 5 MG PO BID, (Reported) Calcitriol 0.25 Mcg Capsule, 0.25 MCG PO MoWeFr, (Reported) Cefdinir 300 Mg Capsule, 300 MG PO BID Prescribed by: STEFFI TONY on 06/02/191203 Cetirizine HCl 10 Mg Tablet, 10 MG PO HS PRN for ALLERGIES, (Reported) Cholecalciferol (Vitamin D3) 50 Mcg Capsule, 50 MCG PO DAILY, (Reported) Clotrimazole/Betamethasone Dip 15 Gm Cream..g., 1 APPLIC TOP BID PRN for RASH, (Reported) Diltiazem HCl 120 Mg Cap.er.24h, 120 MG PO DAILY Prescribed by: STEFFI TONY on 06/02/19 120 Fluticasone Propionate 16 Gm [place].susp, 1 SPRAY NS HS, (Reported) Fluticasone/Salmeterol 1 Each Blst.w.dev, 1 PUFF IH BID, (Reported) Folic Acid/Mv,Fe,Other Min 1 Each Tablet, 1 TAB PO DAILY, (Reported) Furosemide 40 Mg Tablet, 80 MG PO BID Prescribed by: STEFFI TONY on 06/02/19 120 Ipratropium/Albuterol Sulfate 3 Ml Ampul.neb, 3 ML NEB QID PRN for SHORTNESS OF BREATH, (Reported) Metoprolol Tartrate 50 Mg Tablet, 50 MG PO BID, (Reported) Potassium Chloride 20 Meq Tablet.er, 20 MEQ PO DAILY Prescribed by: STEFFI TONY on 06/02/19 120 Sodium Chloride 30 Ml [place], 1-2 SPRAYS NS QID PRN for DRY NOSE, (Reported) Tiotropium [place] 4 Gm Mist.inhal, 2 PUFF INH DAILY, (Reported) Past Izyrobb-Zrrihd-Cuclzx Hx Past Med/Social Hx: Reviewed and Corrections made Patient Social History Alcohol Use: Denies Use Recreational Drug Use: No Smoking Status: Never a Smoker 2nd Hand Smoke Exposure: Yes (IN PAST, BUT NOT FOR 20 YEARS) Recent Foreign Travel: No Contact w/Someone Who Travel: No Recent Infectious Disease Expo: No Recent Hopitalizations: Yes (MULTIPLE ADMITS SINCE 03/2019) Physical Abuse: No Sexual Abuse: No Mistreated: No Fear: No Immunizations Up To Date Tetanus Booster (TDap): Unknown Date of Influenza Vaccine: May 12, 2019 Seasonal Allergies Seasonal Allergies: Yes Past Medical History Surgeries: Yes (Appy and hysterectomy ; CARDIAC CATH 04/11/19-NO INTERVENTION;) Appendectomy, Cardiac, Defibrillator, Hysterectomy Respiratory: Yes (CHRONIC RESPIRATORY FAILURE; OBESITY/HYPOVENTILATION;PULMONARY HTN) Pneumonia, Sleep Apnea, COPD Currently Using CPAP: Yes (WITH O2) Currently Using BIPAP: No Cardiac: Yes (CHF;LBBB;MR/TR;NON-ISC CARDIOMYOPATHY WITH DEFIB-MULTIPLE SHOCKS FROM DEFIB) Atrial Fibrillation, Cardiomyopathy, Chronic Edema/Swelling, High Cholesterol, Hypertension, Valvular Heart Disease Neurological: No 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 No Pertinent Family Hx PSH: -CARDIAC CATH--04/11/19--NO INTERVENTION; EF 50%, NO SIGNIFICANT CAD PMH: -SEVERE MITRAL REGURGITATION/TRIUCUSPIC REGURG -MILD CAROTID DISEASE Sepsis Event Evaluation Height, Weight, BMI Height: 5'5.00" Weight: 243lbs. 0.2oz. 97.347340ex; 38.44 BMI Method:Stated Exam Exam Vital Signs Date Time Temp Pulse Resp B/P (MAP) Pulse Ox O2 Delivery O2 Flow Rate FiO2 06/13/19 04:00 96 118/66 (83) 97 Nasal Cannula 3.00 06/13/19 03:11 98 Nasal Cannula 3.00 06/13/19 03:10 36.6 06/13/19 02:26 97 Nasal Cannula 3.00 06/13/19 01:00 93 06/13/19 00:00 84 18 146/84 (104) 98 Nasal Cannula 3.00 06/12/19 23:56 98 Nasal Cannula 3.00 06/12/19 23:55 36.8 06/12/19 23:50 37.0 96 93 52 06/12/19 23:15 96 19 141/99 (113) 98 Nasal Cannula 3.00 06/12/19 23:00 104 20 123/83 (96) 96 Nasal Cannula 3.00 06/12/19 22:45 97 20 113/56 (75) 97 Nasal Cannula 3.00 06/12/19 22:30 98 15 126/72 (90) 98 Nasal Cannula 3.00 06/12/19 22:15 94 16 132/79 (96) 94 Nasal Cannula 3.00 06/12/19 22:13 98 Nasal Cannula 3.00 06/12/19 22:00 94 15 129/95 (106) 97 Nasal Cannula 3.00 06/12/19 21:57 98 06/12/19 21:45 36.6 95 12 124/74 (91) 97 Nasal Cannula 3.00 06/12/19 21:27 37.0 92 20 127/76 (69) 99 Nasal Cannula 3.00 06/12/19 20:12 37.0 93 20 117/45 99 Nasal Cannula 3.00 06/12/19 19:27 93 Nasal Cannula 2.00 06/12/19 19:13 Nasal Cannula 3.00 06/12/19 19:13 37.0 96 22 142/85 (104) Nasal Cannula 3.00 I & O 06/13/19 07:00 Output Total 150 ml Balance -150 ml Height & Weight Height: 5'5.00" Weight: 243lbs. 0.2oz. 97.039283ed; 38.44 BMI Method:Stated Capillary Refill: Less Than 3 Seconds Gastrointestinal: non tender, soft Results Lab Laboratory Tests 06/12/19 19:22 06/12/19 19:30 06/13/19 03:00 Assessment/Plan Assessment/Plan CHFAE -Continue lasix -Doubt PNA, Doubt COPDAE NSTEMI -cardiology following COPD hx -Duoneb -Advair Morbid obesity medical noncompliance Chronic anemia HX Afib -Eliquis OK to discharge home from pulmonary standpoint once cleared by cardiology. I will see her in my office in 3-4 wks. PHILLIP MADRIGAL DO Jun 13, 2019 04:43
[2019-06-13 04:57] LABS: MAGNESIUM 1.9 MG/DL (1.6-2.4); PHOSPHORUS 3.5 MG/DL (2.3-4.7)
[2019-06-13] MEDS: APIXABAN 5 MG (ELIQUIS) TABLET PO SCH ×2 (08:28→20:13)
[2019-06-13] MEDS: FUROSEMIDE 40 MG/4 ML INJ (LASIX) IV SCH ×2 (08:28→20:13)
[2019-06-13] MEDS: meTOprolol TARTRATE 50 MG (LOPRESSOR) TAB PO SCH ×2 (08:28→20:12)
--- NOTE | 2019-06-13 08:45 | Diagnostic Imaging Report ---
Clinical indication: Follow-up acute exacerbation CHF and COPD exacerbation. Exam: Portable chest x-ray upright view. Comparisons: Chest x-ray dated 06/12/2019. Findings: Cardiomegaly is again seen. There is no significant pulmonary vascular congestion. There is subtle improved aeration of the right midlung field with continued infiltrate in the right midlung field right lung base. Remaining lungs are grossly clear as visualized. There is no pleural effusion or pneumothorax. Cardiac pacemaker/AICD is in stable position. The remainder of this exam shows no significant interval change compared to the prior study of comparison. IMPRESSION: 1: There is slight improved aeration of the right mid lung field with continued right midlung field right lung base infiltrate. 2: Stable cardiomegaly with no significant pulmonary vascular congestion. Dictated by: Dictated on workstation # [id number]
--- NOTE | 2019-06-13 08:51 | Consultation-Cardiology ---
HPI-Cardiology Cardiology Consultation Date of Consultation 06/13/19 Date of Admission Time Seen by Provider: 08:46 Indication: Shortness of breath HPI 68-year-old lady with history of congestive heart failure, nonischemic cardiomyopathy, valvular heart disease. She was discharged from the hospital recently, started to have increasing shortness of breath. No palpitation, no chest pain, no syncope or near syncopal episodes, no fever or cough. Home Medications & Allergies Allergies: Coded Allergies: No Known Drug Allergies (Unverified , 11/03/11) Home Medication List Reviewed: Yes OMZ-Ohsjqe-Lcfpdi Hx Patient Social History Employed/Student: retired Alcohol Use: Denies Use Recreational Drug Use: No Smoking Status: Never a Smoker 2nd Hand Smoke Exposure: Yes (IN PAST, BUT NOT FOR 20 YEARS) Recent Foreign Travel: No Recent Infectious Disease Expo: No Recent Hopitalizations: Yes (MULTIPLE ADMITS SINCE 03/2019) Immunizations Up To Date Tetanus Booster (TDap): Unknown Date of Influenza Vaccine: May 12, 2019 Past Medical History Discussed below Family Medical History Significant Family History: No Pertinent Family Hx Family Medical Hx Noncontributory Family History: Patient reports no known family medical history. Review of Systems-General Review of Systems Constitutional: no symptoms reported; No chills, No diaphoresis, No dizziness, No fever EENTM: see HPI, epistaxis Respiratory: see HPI, cough, dyspnea on exertion, orthopnea, phlegm, short of breath, wheezing Cardiovascular: see HPI, chest pain (ONLY WITH DEEP BREATHS); No edema, No palpitations, No syncope Gastrointestinal: no symptoms reported; No abdominal pain, No nausea, No vomiting Genitourinary: no symptoms reported Musculoskeletal: no symptoms reported; No back pain Skin: no symptoms reported Psychiatric/Neurological: No Symptoms Reported Reviewed Test Results Reviewed Test Results Lab Laboratory Tests Test 06/12/19 19:22 06/12/19 19:30 06/12/19 19:42 06/12/19 21:15 Range/Units Sodium Level 138 135-145 MMOL/L Potassium Level 4.0 3.6-5.0 MMOL/L Chloride Level 97 L 98-107 MMOL/L Carbon Dioxide Level 28 21-32 MMOL/L Anion Gap 13 5-14 MMOL/L Blood Urea Nitrogen 32 H 7-18 MG/DL Creatinine 2.06 H 0.60-1.30 MG/DL Estimat Glomerular Filtration Rate 29 BUN/Creatinine Ratio 16 Glucose Level 112 H 70-105 MG/DL Calcium Level 9.8 8.5-10.1 MG/DL Corrected Calcium 9.9 8.5-10.1 MG/DL Magnesium Level 2.0 1.6-2.4 MG/DL Total Bilirubin 0.6 0.1-1.0 MG/DL Aspartate Amino Transf (AST/SGOT) 23 5-34 U/L Alanine Aminotransferase (ALT/SGPT) 23 0-55 U/L Alkaline Phosphatase 69 40-136 U/L Myoglobin 102.6 H 10.0-92.0 NG/ML Troponin I 0.048 H <0.028 NG/ML Total Protein 7.7 6.4-8.2 GM/DL Albumin 3.9 3.2-4.5 GM/DL White Blood Count 6.6 4.3-11.0 10^3/uL Red Blood Count 3.29 L 4.35-5.85 10^6/uL Hemoglobin 8.7 L 11.5-16.0 G/DL Hematocrit 29 L 35-52 % Mean Corpuscular Volume 89 80-99 FL Mean Corpuscular Hemoglobin 26 25-34 PG Mean Corpuscular Hemoglobin Concent 30 L 32-36 G/DL Red Cell Distribution Width 15.9 H 10.0-14.5 % Platelet Count 262 130-400 10^3/uL Mean Platelet Volume 9.9 7.4-10.4 FL Neutrophils (%) (Auto) 79 H 42-75 % Lymphocytes (%) (Auto) 12 12-44 % Monocytes (%) (Auto) 8 0-12 % Eosinophils (%) (Auto) 1 0-10 % Basophils (%) (Auto) 0 0-10 % Neutrophils # (Auto) 5.2 1.8-7.8 X 10^3 Lymphocytes # (Auto) 0.8 L 1.0-4.0 X 10^3 Monocytes # (Auto) 0.5 0.0-1.0 X 10^3 Eosinophils # (Auto) 0.1 0.0-0.3 10^3/uL Basophils # (Auto) 0.0 0.0-0.1 10^3/uL Prothrombin Time 19.8 H 12.2-14.7 SEC INR Comment 1.6 H 0.8-1.4 Activated Partial Thromboplast Time 28 24-35 SEC Lactic Acid Level 1.90 0.50-2.00 MMOL/L B-Type Natriuretic Peptide 1348.0 H <100.0 PG/ML Blood Gas Puncture Site LEFT RADIAL Blood Gas Patient Temperature 37.0 Arterial Blood pH 7.52 H 7.37-7.43 Arterial Blood Partial Pressure CO2 38 35-45 MMHG Arterial Blood Partial Pressure O2 65 L 79-93 MMHG Arterial Blood HCO3 30 H 23-27 MMOL/L Arterial Blood Total CO2 31.5 H 21.0-31.0 MMOL/L Arterial Blood Oxygen Saturation 92 L 94-100 % Arterial Blood Base Excess 7.0 H -2.5-2.5 MMOL/L Ren Test POSITIVE Blood Gas Ventilator Setting NO Blood Gas Inspired Oxygen 2L Urine Color YELLOW Urine Clarity CLEAR Urine pH 6.0 5-9 Urine Specific [place] 1.010 L 1.016-1.022 Urine Protein NEGATIVE NEGATIVE Urine Glucose (UA) NEGATIVE NEGATIVE Urine Ketones NEGATIVE NEGATIVE Urine Nitrite NEGATIVE NEGATIVE Urine Bilirubin NEGATIVE NEGATIVE Urine Urobilinogen 0.2 < = 1.0 MG/DL Urine Leukocyte Esterase 1+ H NEGATIVE Urine RBC (Auto) NEGATIVE NEGATIVE Urine RBC NONE /HPF Urine WBC 2-5 /HPF Urine Squamous Epithelial Cells 2-5 /HPF Urine Crystals NONE /LPF Urine Bacteria FEW H /HPF Urine Casts NONE /LPF Urine Mucus NEGATIVE /LPF Urine Culture Indicated NO Test 06/13/19 03:00 Range/Units White Blood Count 6.9 4.3-11.0 10^3/uL Red Blood Count 3.24 L 4.35-5.85 10^6/uL Hemoglobin 8.6 L 11.5-16.0 G/DL Hematocrit 29 L 35-52 % Mean Corpuscular Volume 89 80-99 FL Mean Corpuscular Hemoglobin 27 25-34 PG Mean Corpuscular Hemoglobin Concent 30 L 32-36 G/DL Red Cell Distribution Width 16.1 H 10.0-14.5 % Platelet Count 263 130-400 10^3/uL Mean Platelet Volume 10.6 H 7.4-10.4 FL Neutrophils (%) (Auto) 96 H 42-75 % Lymphocytes (%) (Auto) 3 L 12-44 % Monocytes (%) (Auto) 1 0-12 % Eosinophils (%) (Auto) 0 0-10 % Basophils (%) (Auto) 0 0-10 % Neutrophils # (Auto) 6.6 1.8-7.8 X 10^3 Lymphocytes # (Auto) 0.2 L 1.0-4.0 X 10^3 Monocytes # (Auto) 0.0 0.0-1.0 X 10^3 Eosinophils # (Auto) 0.0 0.0-0.3 10^3/uL Basophils # (Auto) 0.0 0.0-0.1 10^3/uL Neutrophils % (Manual) 99 % Lymphocytes % (Manual) 1 % Sodium Level 137 135-145 MMOL/L Potassium Level 3.8 3.6-5.0 MMOL/L Chloride Level 98 98-107 MMOL/L Carbon Dioxide Level 25 21-32 MMOL/L Anion Gap 14 5-14 MMOL/L Blood Urea Nitrogen 31 H 7-18 MG/DL Creatinine 1.97 H 0.60-1.30 MG/DL Estimat Glomerular Filtration Rate 31 BUN/Creatinine Ratio 16 Glucose Level 167 H 70-105 MG/DL Calcium Level 9.7 8.5-10.1 MG/DL Corrected Calcium 9.9 8.5-10.1 MG/DL Phosphorus Level 3.5 2.3-4.7 MG/DL Magnesium Level 1.9 1.6-2.4 MG/DL Total Bilirubin 0.7 0.1-1.0 MG/DL Aspartate Amino Transf (AST/SGOT) 23 5-34 U/L Alanine Aminotransferase (ALT/SGPT) 23 0-55 U/L Alkaline Phosphatase 64 40-136 U/L Creatine Kinase MB 2.1 <6.6 NG/ML Myoglobin 109.5 H 10.0-92.0 NG/ML Troponin I 0.031 H <0.028 NG/ML B-Type Natriuretic Peptide 1337.6 H <100.0 PG/ML Total Protein 7.5 6.4-8.2 GM/DL Albumin 3.8 3.2-4.5 GM/DL Physical Exam Physical Exam Vital Signs Vital Signs - First Documented 06/12/19 06/12/19 19:27 23:50 Pulse Ox 93 FiO2 52 Capillary Refill : Less Than 3 Seconds Height, Weight, BMI Height: 5'5.00" Weight: 243lbs. 0.2oz. 97.028617wr; 38.44 BMI Method:Stated General Appearance: No Apparent Distress, WD/WN Eyes: Bilateral Eye Normal Inspection, Bilateral Eye PERRL, Bilateral Eye EOMI HEENT: PERRL/EOMI, TMs Normal, Normal ENT Inspection, Pharynx Normal, Moist Mucous Membranes Neck: Full Range of Motion, Normal Inspection, Non Tender, Supple, Carotid Bruit Respiratory: Chest Non Tender, Normal Breath Sounds, No Accessory Muscle Use, No Respiratory Distress, Crackles Cardiovascular: Regular Rate, Rhythm, No Edema, No Gallop, No JVD, Normal Peripheral Pulses, Systolic Murmur Gastrointestinal: Normal Bowel Sounds, No Organomegaly, No Pulsatile Mass, Non Tender, Soft Back: Normal Inspection, No CVA Tenderness, No Vertebral Tenderness Extremity: Normal Capillary Refill, Normal Inspection, Normal Range of Motion, Non Tender, No Calf Tenderness, No Pedal Edema Neurologic/Psychiatric: Alert, Oriented x3, No Motor/Sensory Deficits, Normal Mood/Affect Skin: Normal Color, Warm/Dry Lymphatic: No Adenopathy A/P-Cardiology Admission Diagnosis Shortness of breath Congestive heart failure Coronary artery disease Hypertension Assessment/Plan Shortness of breath, acute on chronic left ventricular systolic dysfunction, nonischemic cardiomyopathy, started on diuretics. Restart home medications and monitor. Congestive heart failure, acute on chronic left ventricular diastolic dysfunction, severe mitral regurgitation, pulmonary hypertension with PA pressure 53 mmHg on GABRIELLA on May 27, [address] Wilson, scheduled to see Dr. Bran next week Heart catheterization done on April 12, 2019 showing normal coronaries with ejection fraction 50 percent, echocardiogram reported by Dr. Pritchett on May 30, 2019 with ejection fraction 30 percent. History of syncope on May 06, 2019, no further syncopal episodes. Intolerant to ORAL inhibitor and/or ARB due to worsening renal function Chronic kidney disease, monitored and managed by primary care team Suspected sarcoidosis, followed by Dr Rose. 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 Device functioning normally per interrogation of May 2019 Paroxysmal atrial flutter with an intermittent rapid ventricular response. In July 2012, she received one shock ICD for atrial flutter but has not has not received any since. Interrogation of 05/17/19 shows brief episodes of A Fl but with good rate control Intolerance to digoxin (results in N/V and poor apetite) Chronic LBBB CKD-4, being followed by Dr Huff History of bronchial asthma, managed by Dr Rose Chronic anticoagulation with Eliquis therapy for stroke prophylaxis. Frequent epistaxis Obesity-hypoventilation syndrome and MAIXM, treated with CPAP, but she is noncompliant Pulmonary hypertension of undetermined etiology. H/o pulm hypertension on echo studies of 2011,2012, 2013, echo studies of 2015 and 2017 had shown PASP approx 30-35 mmHg. Most recent echo of May 2019 showed PASP in 48-53 mmHg range Mild carotid dz per u/s of Mar 2019 Clinical Quality Measures DVT/VTE Risk/Contraindication: Risk Factor Score Per Nursin RFS Level Per Nursing on Admit: 4+=Very High VERA DE LUNA MD Jun 13, 2019 08:51
[2019-06-13] MEDS ORDERED: APIXABAN 5 MG (ELIQUIS) TABLET PO SCH (09:00)
--- NOTE | 2019-06-13 09:40 | History & Physical-Hospitalist ---
History of Present Illness HPI/Chief Complaint Patient is a 68-year-old female with a past medical history of COPD, CHF, CK B, paroxysmal A. fib, mitral regurgitation who presented to the emergency room due to shortness of breath. She is well known to me due to multiple admissions over the past 2 months. She reports that she was doing really well since her discha rge on June 02 at until yesterday evening when she started developed acute onset shortness of breath. She used her inhaler multiple times without any improvement and ultimately decided to call EMS. She was giving nebulized breathing treatment which helped improve her symptoms significantly. On arrival to the ER she was on 8 L up from her baseline of 3 L via nasal cannula. This morning she reports that she is feeling much better. Her BMP was found to be high. She is to see a cardiothoracic surgeon for evaluation of her mitral valve but she has missed those appointments. Upcoming appointment is on June 15. We discussed compliance with her diet and medications which she re ports she is trying to do. She denies any missed meds. She endorses compliance with diet but then stated she ate at [employer] two days ago and had their clam chowder (730mg sodium in 8 oz) and then yesterday morning at sausage patties at eggs. Source: patient Date Seen 06/13/19 Time Seen by a Provider: 09:36 Attending Physician Xin Dai MD PCP Carlos Castellano MD Referring Physician Date of Admission Jun 12, 2019 at 20:25 Home Medications & Allergies Home Medications Reviewed patient Home Medication Reconciliation performed by pharmacy medication reconciliations turfgrass technician and/or nursing. Patients Allergies have been reviewed. Allergies Allergies Coded Allergies No Known Drug Allergies (Unverified11/03/11) Past Rkuahsv-Lijuma-Cwfqyo Hx Past Med/Social Hx: Reviewed Nursing Past Med/Soc Hx, Reviewed and Corrections made Patient Social History Marrital Status: Employed/Student: retired Alcohol Use: Denies Use Recreational Drug Use: No Smoking Status: Never a Smoker 2nd Hand Smoke Exposure: Yes (IN PAST, BUT NOT FOR 20 YEARS) Recent Foreign Travel: No Contact w/other who traveled: No Recent Hopitalizations: Yes (MULTIPLE ADMITS SINCE 03/2019) Recent Infectious Disease Expo: No Immunizations Up To Date Tetanus Booster (TDap): Unknown Date of Influenza Vaccine: May 12, 2019 Seasonal Allergies Seasonal Allergies: Yes Past Medical History Surgeries: Appendectomy, Cardiac, Defibrillator, Hysterectomy Respiratory: COPD, Pneumonia, Sleep Apnea Sarcoidosis Currently Using CPAP: Yes (WITH O2) Currently Using BIPAP: No Cardiac: Atrial Fibrillation, Cardiomyopathy, Chronic Edema/Swelling, High Cholesterol, Hypertension, Valvular Heart Disease PHTN Reproductive: Yes Sexually Transmitted Disease: No HIV/AIDS: No Hysterectomy, Menopausal Genitourinary: Renal Failure Loss of Vision: Denies History of Blood Disorders: Yes (ANEMIA) Adverse Reaction to Blood [place]: No Family History Patient reports no known family medical history. No Pertinent Family Hx PSH: -CARDIAC CATH--04/11/19--NO INTERVENTION; EF 50%, NO SIGNIFICANT CAD PMH: -SEVERE MITRAL REGURGITATION/TRIUCUSPIC REGURG -MILD CAROTID DISEASE Review of Systems Constitutional: No chills, No fever EENTM: epistaxis, nose congestion Respiratory: dyspnea on exertion; No hemoptysis; short of breath Cardiovascular: No chest pain, No palpitations Gastrointestinal: no symptoms reported Genitourinary: no symptoms reported Musculoskeletal: no symptoms reported Skin: no symptoms reported Psychiatric/Neurological: No Symptoms Reported Physical Exam Physical Exam Vital Signs Vital Signs - First Documented 06/12/19 06/12/19 19:27 23:50 Pulse Ox 93 FiO2 52 Capillary Refill : Less Than 3 Seconds Height, Weight, BMI Height: 5'5.00" Weight: 243lbs. 0.2oz. 97.226301uj; 38.44 BMI Method:Stated General Appearance: No Apparent Distress, Chronically ill, Obese HEENT: PERRL/EOMI, Moist Mucous Membranes, Other (dried blood noticed in nares on left) Neck: Normal Inspection, Supple; No Thyromegaly Respiratory: No Accessory Muscle Use, No Respiratory Distress, Decreased Breath Sounds (in bases); No Rhonci, No Wheezing Cardiovascular: Regular Rate, Rhythm, No Murmur Gastrointestinal: Normal Bowel Sounds, Soft Results Results/Procedures Labs Laboratory Tests 06/12/19 19:22 06/12/19 19:30 06/13/19 03:00 Patient resulted labs reviewed. Assessment/Plan Admission Diagnosis Acute CHF exacerbation Chronic respiratory failure HTN Mitral Regurg Elevated troponin Continue Lasix Long history of noncompliance Was asked to keep log of food intake but does not have this Cardiology consulted, appreciate recs Has appointment with CTS on 06/15/19 COPD not an acute exacerbation MAT protocol Sarah Canseco consulted, apreciate diony Atrial Fibrillation Chronic anticoagulation Continue Eliquis Rate controlled Continue home meds Epistaxis Likely due to irritation from nasal cannula and anticoagulation CKD Creatinine at baseline Monitor with diuresis Anemia Due to chronic disease At baseline Trend Admission Status: Observation Diagnosis/Problems Diagnosis/Problems (1) Acute exacerbation of CHF (congestive heart failure) Status: Acute Qualifiers: Heart failure type: diastolic Qualified Codes: I50.33 - Acute on chronic diastolic (congestive) heart failure (2) Elevated troponin Status: Acute (3) Frequent nosebleeds Status: Acute (4) Chronic anemia Status: Acute (5) Chronic atrial fibrillation Status: Acute (6) Mitral regurgitation Status: Acute Qualifiers: Cardiac valve disease etiology: nonrheumatic Qualified Codes: I34.0 - Nonrheumatic mitral (valve) insufficiency (7) Morbid obesity Status: Acute (8) Chronic renal failure Status: Acute Qualifiers: Chronic kidney disease stage: stage 3 (moderate) Qualified Codes: N18.3 - Chronic kidney disease, stage 3 (moderate) (9) ICD (implantable cardioverter-defibrillator) in place Status: Chronic (10) COPD without exacerbation Status: Chronic Clinical Quality Measures DVT/VTE Risk/Contraindication: Risk Factor Score Per Nursin RFS Level Per Nursing on Admit: 4+=Very High XIN DAI MD Jun 13, 2019 09:40
--- NOTE | 2019-06-13 17:00 | NUR ---
Report called to Saira LARIOS. Patient taken to room 413 via wheel chair by this nurse and DAVID Lawton, patient sent down on telemetry.
--- NOTE | 2019-06-13 17:00 | NUR ---
RECEIVED PATIENT FROM ICU. HAVE REVIEWED ASSESSMENT BY ICU NURSE AND AGREE WITH THE ASSESSMENT
[2019-06-14] VITALS: BP 116/67
[2019-06-14] MEDS: RT-ALBUTEROL/IPRATROPIUM 3 ML (DUONEB) VIAL INH SCH ×2 (02:49→08:47)
[2019-06-14 04:00] VITALS: BP 111/81
[2019-06-14 08:00] VITALS: BP 108/65
[2019-06-14] MEDS: meTOprolol TARTRATE 50 MG (LOPRESSOR) TAB PO SCH (08:38)
[2019-06-14] MEDS: FUROSEMIDE 40 MG/4 ML INJ (LASIX) IV SCH (08:38)
[2019-06-14] MEDS: APIXABAN 5 MG (ELIQUIS) TABLET PO SCH (08:38)
--- NOTE | 2019-06-14 08:43 | Progress Note - Cardiology ---
Cardiology SOAP Progress Note Subjective: Sitting up in the recliner at the bedside. States she feels she has some chest heaviness which comes and goes. She feels her SOB is somewhat better, but still not back to baseline. C/O gen fatigue Objective: I&O/Vital Signs 06/15/19 00:00 Intake Total 700 ml Output Total 300 ml Balance 400 ml Weight (Pounds): 243 Weight (Ounces): 0.2 Weight (Calculated Kilograms): 97.503168 Constitutional: AAO x 3, well-developed, well-nourished Respiratory: No accessory muscle use, No respiratory distress; chest expansion is symmetric, chest is bilaterally symmetric, other (good air entry) Cardiovascular: regular rate-rhythm; No JVD; S1 and S2, systolic murmur Gastrointestional: No tender; soft, round, audible bowel sounds Extremities: other (mild to mod bilat LE swelling) Neurologic/Psychiatric: grossly intact (moves all extremities) Results/Procedures: Labs Microbiology 06/12/19 Blood Culture - Preliminary, Resulted No growth 06/12/19 Influenza Types A,B Antigen (RADHA) - Final, Complete Procedures NAME: MARQUIS SHEEHAN [facility] REC#: [id number] PT STATUS: ADM Nate : 1950 PHYSICIAN: XIN MASTERSON MD ADMIT DATE: 06/12/19/ICU Signed Date of Exam:06/13/19 CHEST 1 VIEW, AP/PA ONLY Clinical indication: Follow-up acute exacerbation CHF and COPD exacerbation. Exam: Portable chest x-ray upright view. Comparisons: Chest x-ray dated 06/12/2019. Findings: Cardiomegaly is again seen. There is no significant pulmonary vascular congestion. There is subtle improved aeration of the right midlung field with continued infiltrate in the right midlung field right lung base. Remaining lungs are grossly clear as visualized. There is no pleural effusion or pneumothorax. Cardiac pacemaker/AICD is in stable position. The remainder of this exam shows no significant interval change compared to the prior study of comparison. IMPRESSION: 1: There is slight improved aeration of the right mid lung field with continued right midlung field right lung base infiltrate. 2: Stable cardiomegaly with no significant pulmonary vascular congestion. Dictated by: Dictated on workstation # [id number] Dict: 06/13/19 0835 Trans: 06/13/19 1322 DARRON [id number] Interpreted by: LINDSEY ALEX MD Electronically signed by: LINDSEY ALEX MD 06/13/19 1322 A/P: Assessment: Multifactorial shortness of breath (see below) RML infiltrate seen on CXR of 06-14-2019 RLL pneumonia in May 2019 Acute on chronic systolic and diastolic CHF due to nonischemic cardiomyopathy Mitral regurg. GABRIELLA of 05/27/19 showed severe MR, mod TR, RVSP 53 mmHg, LVEF approx 50% Card cath of 04/12/19: normal cors, LVEF 50%, LVEDP 17 mmHg, no significant MR on this study H/O nonischemic cardiomyopathy that had improved. Previously, she had an ejection fraction between 30 and 35% on serial echocardiograms, but most recent echo of May 30, [address] Pritchett showed LVEF 30%. Severe MR and TR. PASP 48- 53 mmHg Syncopal episode of undetermined etiology (May 06, 2019 per pt report). Device interrogation of 05/17/19 did not any significant arrhythmia that might account for syncope Anemia of undetermined etiology (possibly due to CKD) managed by the [facility] Intolerance to ORAL-inhib / ARB due to worsening renal function Suspected sarcoidosis, followed by Dr Rose. 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 Device functioning normally per interrogation of May 2019 Paroxysmal atrial flutter with an intermittent rapid ventricular response. In July 2012, she received one shock ICD for atrial flutter but has not has not received any since. Interrogation of 05/17/19 shows brief episodes of A Fl but wi th good rate control Intolerance to digoxin (results in N/V and poor appetite) Chronic LBBB CKD-4, being followed by Dr Huff History of bronchial asthma, managed by Dr Rose Chronic anticoagulation with Eliquis therapy for stroke prophylaxis. Frequent epistaxis Obesity-hypoventilation syndrome and MAXIM, treated with CPAP, but she is noncompliant Pulmonary hypertension of undetermined etiology. H/o pulm hypertension on echo studies of 2011,2012, 2013, echo studies of 2015 and 2017 had shown PASP approx 30-35 mmHg. Most recent echo of May 2019 showed PASP in 48-53 mmHg range Mild carotid dz per u/s of Mar 2019 Plan: Complex management issue as noted above Continue current regimen Monitor lab closely Resume CCB for rate control Continue OAC for stroke prophylaxis VIRGIL CORNEJO Jun 14, 2019 08:43
[2019-06-14] MEDS ORDERED: DILTIAZEM 120 MG (CARDIZEM CD) CAP PO NR (09:15)
[2019-06-14 12:05] VITALS: BP 108/58
--- NOTE | 2019-06-14 12:24 | NUR ---
THE DISCHARGE HAS ALREADY BEEN STARTED FOR THE PT. THE PT SAYS THE ONLY THING THAT HAS CHANGED IS ON THE LASIX 40MG SHE IS NOW TAKING 2 TABS BID- THAT IS REFLECTED ON THE MED REC SINCE. WHEN I CHECKED WITH THE AID TO SEE IF SHE IS REALLY BEING DISCHARGED TODAY, SHE CONFINED THAT YES THE PT WAS LEAVING SOON. DUE TO THIS I DID NOT UPDATE ANYTHING ON THE MED LIST IT WAS NOT NEEDED.
--- NOTE | 2019-06-14 12:27 | NUR ---
CM/SS visited with patient to follow up from last discharge. Plan: The patient plans to return home and resume care with [facility]. The patient has an appointment tomorrow 06/15/19. The patient felt like she did really well after she left the hospital last time. However felt like the breathing treatment and inhaler did not help enough the night that she came in. The patient states she likes her nurse Yashira that comes out once a week on Friday'. The patient states she has really been trying to be compliant with her diet but really hasn't felt like eating much. The patient plans to go to her appointment tomorrow. No other needs at this time.
--- NOTE | 2019-06-14 12:45 | Progress Note - Cardiology ---
Cardiology SOAP Progress Note Subjective: Shortness of breath modestly improved since adm No cp or palp or syncope Leg swelling present No N/V/D Gen malaise and weakness Objective: I&O/Vital Signs 06/14/19 06/14/19 06/14/19 06/14/19 01:00 02:46 04:00 04:00 Temp 36.3 Pulse 83 104 Resp 21 B/P (MAP) 111/81 (91) Pulse Ox 96 98 98 O2 Delivery Nasal Cannula Nasal Cannula Nasal Cannula O2 Flow Rate 4.00 3.00 3.00 06/14/19 06/14/19 06/14/19 06/14/19 07:00 08:00 08:00 08:49 Temp 36.2 Pulse 100 97 Resp 18 B/P (MAP) 108/65 (79) Pulse Ox 98 93 95 O2 Delivery Nasal Cannula Nasal Cannula Nasal Cannula O2 Flow Rate 3.00 4.00 4.00 06/14/19 06/14/19 06/14/19 09:00 12:05 12:28 Temp 36.4 Pulse 88 Resp 18 B/P (MAP) 108/58 (75) Pulse Ox 95 98 99 O2 Delivery Nasal Cannula Nasal Cannula Nasal Cannula O2 Flow Rate 4.00 4.00 4.00 06/14/19 00:00 Intake Total 1290 ml Output Total 900 ml Balance 390 ml Weight (Pounds): 243 Weight (Ounces): 0.2 Weight (Calculated Kilograms): 97.034809 Constitutional: AAO x 3, well-developed, well-nourished Respiratory: No accessory muscle use, No respiratory distress; chest expansion is symmetric, chest is bilaterally symmetric, other (good air entry) Cardiovascular: regular rate-rhythm; No JVD; S1 and S2, systolic murmur Gastrointestional: No tender; soft, round, audible bowel sounds Extremities: other (mild to mod bilat LE swelling) Neurologic/Psychiatric: grossly intact (moves all extremities) Results/Procedures: Labs Microbiology 06/12/19 Blood Culture - Preliminary, Resulted No growth 06/12/19 Influenza Types A,B Antigen (RADHA) - Final, Complete Laboratory Tests 06/12/19 19:22 06/12/19 19:30 06/13/19 03:00 A/P: Assessment: Multifactorial shortness of breath (see below) Pneumonia. RML infiltrate seen on CXR of 06-14-2019. RLL pneumonia in May 2019 Acute on chronic systolic and diastolic CHF due to nonischemic cardiomyopathy Mitral regurg. GABRIELLA of 05/27/19 showed severe MR, mod TR, RVSP 53 mmHg, LVEF approx 50% Card cath of 04/12/19: normal cors, LVEF 50%, LVEDP 17 mmHg, no significant MR on this study H/O nonischemic cardiomyopathy that had improved. Previously, she had an ejection fraction between 30 and 35% on serial echocardiograms, but most recent echo of May 30, [address] Pritchett showed LVEF 30%. Severe MR and TR. PASP 48- 53 mmHg Syncopal episode of undetermined etiology (May 06, 2019 per pt report). Device interrogation of 05/17/19 did not any significant arrhythmia that might account for syncope Anemia of undetermined etiology (possibly due to CKD) managed by the [facility] Intolerance to ORAL-inhib / ARB due to worsening renal function Suspected sarcoidosis, followed by Dr Rose. 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 Device functioning normally per interrogation of May 2019 Paroxysmal atrial flutter with an intermittent rapid ventricular response. In July 2012, she received one shock ICD for atrial flutter but has not has not received any since. Interrogation of 05/17/19 shows brief episodes of A Fl but with good rate control Intolerance to digoxin (results in N/V and poor appetite) Chronic LBBB CKD-4, being followed by Dr Huff History of bronchial asthma, managed by Dr Rose Chronic anticoagulation with Eliquis therapy for stroke prophylaxis. Frequent epistaxis Obesity-hypoventilation syndrome and MAXIM, treated with CPAP, but she is noncompliant Pulmonary hypertension of undetermined etiology. H/o pulm hypertension on echo studies of 2011,2012, 2013, echo studies of 2015 and 2017 had shown PASP approx 30-35 mmHg. Most recent echo of May 2019 showed PASP in 48-53 mmHg range Mild carotid dz per u/s of Mar 2019 Plan: Complex management issue as noted above Continue current regimen Monitor lab closely Resume CCB for rate control Continue OAC for stroke prophylaxis Hospitalist [facility] managing pneumonia and COPD HENRY SMITH MD FACP FACC CCDS Jun 14, 2019 12:45
--- NOTE | 2019-06-14 13:03 | Discharge Summary ---
Discharge Summary Hospital Course Was the Problem List Reviewed?: Yes Problems/Dx: (1) Acute exacerbation of CHF (congestive heart failure) Status: Acute Qualifiers: Qualified Codes: I50.33 - Acute on chronic diastolic (congestive) heart failure (2) Elevated troponin Status: Acute (3) Frequent nosebleeds Status: Acute (4) Chronic anemia Status: Acute (5) Chronic atrial fibrillation Status: Acute (6) Mitral regurgitation Status: Acute Qualifiers: Qualified Codes: I34.0 - Nonrheumatic mitral (valve) insufficiency (7) Morbid obesity Status: Acute (8) Chronic renal failure Status: Acute Qualifiers: Qualified Codes: N18.3 - Chronic kidney disease, stage 3 (moderate) (9) ICD (implantable cardioverter-defibrillator) in place Status: Chronic (10) COPD without exacerbation Status: Chronic Hospital Course Date of Admission: Jun 12, 2019 at 20:25 Admission Diagnosis : Acute on chronic heart failure with preserved ejection fraction Family Physician/Provider: Carlos Castellano MD Date of Discharge: 06/14/19 Discharge Diagnosis: Acute on chronic heart failure with preserved ejection fraction Hospital Course: Malathi Hurley is a 68-year-old female with multiple comorbidities and the frequent recent hospitalizations who presented with acute on chronic heart failure with preserved ejection fraction. She received IV Lasix and her fluid overload improved. She has an appointment with a cardiothoracic surgeon and [place] to evaluate her mitral regurgitation tomorrow. She has a follow-up scheduled with her primary care physician, Dr. Castellano. Labs and Pending Lab Test: Microbiology 06/12/19 Blood Culture - Preliminary, Resulted No growth 06/12/19 Influenza Types A,B Antigen (RADHA) - Final, Complete Home Meds Active Diltiazem 24Hr ER (Diltiazem HCl) 120 Mg Cap.er.24h 120 Mg PO DAILY 90 Days Potassium Chloride 20 Meq Tablet.er 20 Meq PO DAILY 30 Days Furosemide 40 Mg Tablet 80 Mg PO BID 30 Days Reported D3-2000 (Cholecalciferol (Vitamin D3)) 50 Mcg Capsule 50 Mcg PO DAILY Saline Nasal Aurora (Sodium Chloride) 30 Ml Aurora 1-2 Sprays NS QID PRN Iprat-Albut 0.5-3(2.5) mg/3 ml (Ipratropium/Albuterol Sulfate) 3 Ml Ampul.neb 3 Ml NEB QID PRN Advair 250-50 Diskus (Fluticasone/Salmeterol) 1 Each Blst.w.dev 1 Puff IH BID Spiriva Respimat 2.5MCG/ACTUATION (Tiotropium Moira) 4 Gm Mist.inhal 2 Puff INH DAILY Allopurinol 100 Mg Tablet 100 Mg PO DAILY Calcitriol 0.25 Mcg Capsule 0.25 Mcg PO MOWEFR One Daily For Women Tablet (Folic Acid/Mv,Fe,Other Min) 1 Each Tablet 1 Tab PO DAILY Clotrimazole-Betamethasone Crm (Clotrimazole/Betamethasone Dip) 15 Gm Cream..g. 1 Applic TOP BID PRN Tylenol (Acetaminophen) 325 Mg Tablet 650 Mg PO Q6H PRN Fluticasone Propionate 16 Gm Aurora.susp 1 Aurora NS HS Ventolin Hfa (Albuterol Sulfate) 18 Gm Hfa.aer.ad 2 Puff INH QID PRN Metoprolol Tartrate 50 Mg Tablet 50 Mg PO BID Eliquis (Apixaban) 5 Mg Tablet 5 Mg PO BID Cetirizine HCl 10 Mg Tablet 10 Mg PO HS PRN Assessment/Pt Instructions Take medications as prescribed. Follow-up with your reflow operator in [place] for her mitral regurgitation. Return with worsening shortness of breath, swelling, or if you feel like you're getting worse. Discharge Planning: <30 minutes discharge planning Discharge Instructions Discharge Diet: Low Sodium Diet, Cardiac Diet Activity as Tolerated: Yes Pneumonia Vaccine Order Indica: Yes Discharge Physical Examination Vital Signs Vital Signs Date Time Temp Pulse Resp B/P (MAP) Pulse Ox O2 Delivery O2 Flow Rate FiO2 06/14/19 12:50 90 06/14/19 12:28 99 Nasal Cannula 4.00 06/14/19 12:05 36.4 18 108/58 (75) 06/12/19 23:50 52 General Appearance: No Apparent Distress, Obese HEENT: PERRL/EOMI, Pharynx Normal Respiratory: Lungs Clear, Normal Breath Sounds, No Respiratory Distress Cardiovascular: Regular Rate, Rhythm, Systolic Murmur Gastrointestinal: Normal Bowel Sounds, Non Tender, Soft Extremity: Non Tender, Pedal Edema Skin: Normal Color, Warm/Dry Neurologic/Psychiatric: Alert, Oriented x3, No Motor/Sensory Deficits, Normal Mood/Affect Allergies: Coded Allergies: No Known Drug Allergies (Unverified , 11/03/11) Discharge Summary Date of Admission Jun 12, 2019 at 20:25 Date of Discharge Discharge Date: Jun 14, 2019 Discharge Time: 13:02 Admission Diagnosis Acute on chronic heart failure with preserved ejection fraction Consults/Procedures Consulations Cardiology Discharge Diagnosis Acute on chronic heart failure with preserved ejection fraction (1) Acute exacerbation of CHF (congestive heart failure) Status: Acute Qualifiers: Qualified Codes: I50.33 - Acute on chronic diastolic (congestive) heart failure (2) Elevated troponin Status: Acute (3) Frequent nosebleeds Status: Acute (4) Chronic anemia Status: Acute (5) Chronic atrial fibrillation Status: Acute (6) Mitral regurgitation Status: Acute Qualifiers: Qualified Codes: I34.0 - Nonrheumatic mitral (valve) insufficiency (7) Morbid obesity Status: Acute (8) Chronic renal failure Status: Acute Qualifiers: Qualified Codes: N18.3 - Chronic kidney disease, stage 3 (moderate) (9) ICD (implantable cardioverter-defibrillator) in place Status: Chronic (10) COPD without exacerbation Status: Chronic Clinical Quality Measures DVT/VTE Risk/Contraindication: Risk Factor Score Per Nursin RFS Level Per Nursing on Admit: 4+=Very High STEFFI TONY MD Jun 14, 2019 13:01
[2019-06-15] MEDS ORDERED: DILTIAZEM 120 MG (CARDIZEM CD) CAP PO SCH (09:00)
== END 2019-06-14 15:15 | disposition home or self-care (01) ==
LOC: EDUNIT# 19:15 → ER 19:16 → ICU 20:25 → 4TH 06-13 17:01
PROVIDERS: ADMIT Family Medicine; ATTEND Family Medicine
DX: I13.0 Hypertensive heart and chronic kidney disease with heart failure and stage 1 through stage 4 chronic kidney disease, or unspecified chronic kidney disease (principal); I50.33 Acute on chronic diastolic (congestive) heart failure; J96.21 Acute and chronic respiratory failure with hypoxia; I48.20 Chronic atrial fibrillation, unspecified; I21.4 Non-ST elevation (NSTEMI) myocardial infarction; I42.8 Other cardiomyopathies; I27.20 Pulmonary hypertension, unspecified; I44.7 Left bundle-branch block, unspecified; I48.0 Paroxysmal atrial fibrillation; I34.0 Nonrheumatic mitral (valve) insufficiency; D64.9 Anemia, unspecified; E66.01 Morbid (severe) obesity due to excess calories; G47.33 Obstructive sleep apnea (adult) (pediatric); E78.00 Pure hypercholesterolemia, unspecified; J44.1 Chronic obstructive pulmonary disease with (acute) exacerbation; N17.9 Acute kidney failure, unspecified; N18.4 Chronic kidney disease, stage 4 (severe); Z91.14 Patient's other noncompliance with medication regimen; Z79.899 Other long term (current) drug therapy; Z90.89 Acquired absence of other organs; Z90.710 Acquired absence of both cervix and uterus; Z95.810 Presence of automatic (implantable) cardiac defibrillator; Z99.89 Dependence on other enabling machines and devices; Z68.38 Body mass index [BMI] 38.0-38.9, adult
CPT/HCPCS: 36415; 51702; 71045; 80053; 81000; 82553; 82805; 83605; 83735; 83874; 83880; 84100; 84484; 85007; 85025; 85027; 85610; 85730; 87040; 87804; 93005; 93041; 94640; 96374; 96375

== ENCOUNTER 2019-07-14 14:13 | Outpatient (RCR) | payer BC, MEDICARE ==
[2019-10-06] MEDS ORDERED: ALBU1.25 NEB (12:08)
[2019-10-06] MEDS ORDERED: POTA20TA15 PO (12:08)
[2019-10-06] MEDS ORDERED: METO50TA7 PO (12:08)
[2019-10-06] MEDS ORDERED: FURO40TA4 PO ×2 (12:08→13:57)
[2019-10-06] MEDS ORDERED: LISI-552 PO ×2 (12:08→13:57)
[2019-10-06] MEDS ORDERED: DILT120C53 PO (12:10)
[2019-10-06] MEDS ORDERED: CYAN-23 PO (12:23)
[2019-10-06] MEDS ORDERED: AMIO200T4 PO (12:23)
[2019-10-06] MEDS ORDERED: FOLIC ACID 1 MG PO (12:23)
[2019-10-06] MEDS ORDERED: PANT40TA3 PO (12:23)
== END 2019-10-12 | disposition home or self-care (01) ==
LOC: PULM 14:13
PROVIDERS: ATTEND Family Medicine
DX: J44.9 Chronic obstructive pulmonary disease, unspecified (principal)
CPT/HCPCS: 99211

== ENCOUNTER 2019-10-13 14:48 | Emergency (ER) | payer BC, MEDICARE ==
[~2019-10-13] VITALS: Ht 165 cm; Wt 102.0 kg
[~2019-10-13 14:48] MED LIST changes: +ALBU1.25 NEB; +CYAN-23 PO; +DILT120C53 PO; +FOLIC ACID 1 MG PO; +LISI-552 PO; +METO50TA7 PO; +PANT40TA3 PO; +POTA20TA15 PO
[2019-10-13 15:03] LABS: BASOPHILS % (AUTO) 0 % (0-10); EOSINOPHILS % (AUTO) 1 % (0-10); HEMATOCRIT 31 % (35-52); HEMOGLOBIN 9.6 G/DL (11.5-16.0); LYMPHOCYTES # (AUTO) 0.5 X 10^3 (1.0-4.0); LYMPHOCYTES % (AUTO) 9 % (12-44); MEAN CORPUSCULAR HEMOGLOBIN 29 PG (25-34); MEAN CORPUSCULAR HGB CONC 31 G/DL (32-36); MEAN CORPUSCULAR VOLUME 92 FL (80-99); MONOCYTES # (AUTO) 0.5 X 10^3 (0.0-1.0); MONOCYTES % (AUTO) 10 % (0-12); NEUTROPHILS # (AUTO) 4.5 X 10^3 (1.8-7.8); NEUTROPHILS % (AUTO) 80 % (42-75); PLATELET COUNT 204 10^3/uL (130-400); RED CELL DISTRIBUTION WIDTH 15.9 % (10.0-14.5); WHITE BLOOD COUNT 5.6 10^3/uL (4.3-11.0)
[2019-10-13 15:14] LABS: PROTHROMBIN TIME PATIENT 23.1 SEC (12.2-14.7)
[2019-10-13] MEDS ORDERED: ONDANSETRON 4 MG/2 ML (SDV) Z0FRAN IVP ONE (15:15)
--- NOTE | 2019-10-13 15:21 | ED Cardiac General ---
History of Present Illness General Chief Complaint: Chest Pain Stated Complaint: VOMITING;FEVER;CHEST PAIN Nursing Triage Note: ARRIVED VIA WC TO ROOM [address] FLOYD OFFICE. TODAY STATES SHE IS HAVING CHEST TIGNESS, SOA, AND VOMITIING. STATES SHE HAS NOT FELT WELL FOR SEVERAL DAYS. Source: patient Exam Limitations: no limitations History of Present Illness Date Seen by Provider: Oct 13, 2019 Time Seen by Provider: 15:19 Initial Comments To ER with reports of nausea for 2 or 3 days, feels like she's got fluid on her lungs she states. Increasing shortness of breath. Denies chest pain, states that she did have 3 or 4 sharp chest pains on Friday, none today. She is scheduled for a teleconference with Dr. Oreilly from [facility] for mitral valve clipping to help with her severe mitral regurgitation. That is scheduled for the of this month Severity: moderate Location: central Activities at Onset: none Prior CP/Workup: no prior chest pain Modifying Factors: improves with rest NTG SL SEWING TECHNIQUES DEMONSTRATOR: No ASA po SEWING TECHNIQUES DEMONSTRATOR: No Allergies and Home Medications Allergies Coded Allergies: No Known Drug Allergies (Unverified , 11/03/11) Home Medications Acetaminophen 325 Mg Tablet, 650 MG PO Q6H PRN for PAIN-MILD, (Reported) Albuterol Sulfate 18 Gm Hfa.aer.ad, 2 PUFF INH QID PRN for SHORTNESS OF BREATH, (Reported) Albuterol Sulfate 1.25 Mg/3 Ml Vial.neb, 3 ML NEB Q6H PRN for SHORTNESS OF BREATH, (Reported) Allopurinol 100 Mg Tablet, 100 MG PO DAILY, (Reported) Amiodarone HCl 200 Mg Tablet, 200 MG PO DAILY, (Reported) Apixaban 5 Mg Tablet, 5 MG PO BID, (Reported) LAST FILLED 08-26-2019 #60/30 DAY SUPPLY Calcitriol 0.25 Mcg Capsule, 0.25 MCG PO MoWeFr, (Reported) Cetirizine HCl 10 Mg Tablet, 10 MG PO HS PRN for ALLERGIES, (Reported) Cholecalciferol (Vitamin D3) 50 Mcg Capsule, 50 MCG PO DAILY, (Reported) Clotrimazole/Betamethasone Dip 15 Gm Cream..g., 1 APPLIC TOP BID PRN for RASH, (Reported) Cyanocobalamin (Vitamin B-12) 1,000 Mcg Capsule, 1,000 MCG PO DAILY, (Reported) Diltiazem HCl 120 Mg Cap.er.24h, 120 MG PO DAILY, (Reported) Fluticasone Propionate 16 Gm [place].susp, 1 SPRAY NS HS, (Reported) Fluticasone/Salmeterol 1 Each Blst.w.dev, 1 PUFF IH BID, (Reported) Folic Acid/Mv,Fe,Other Min 1 Each Tablet, 1 TAB PO DAILY, (Reported) Furosemide 40 Mg Tablet, 40 MG PO DAILY Prescribed by: STEFFI TONY on 10/06/191356 Lisinopril 20 Mg Tablet, 20 MG PO DAILY Hold until PCP follow up Prescribed by: STEFFI TONY on 10/06/19 135 Metoprolol Succinate 50 Mg Tab.er.24h, 50 MG PO DAILY, (Reported) Pantoprazole Sodium 40 Mg Tablet.dr, 40 MG PO DAILY, (Reported) Tiotropium [place] 4 Gm Mist.inhal, 2 PUFF INH DAILY, (Reported) [folic ACID 1MG] 1 TAB, 1 MG PO DAILY, (Reported) Patient Home Medication List Home Medication List Reviewed: Yes Review of Systems Review of Systems Constitutional: see HPI EENTM: No Symptoms Reported Respiratory: No Symptoms Reported Cardiovascular: See HPI, Chest Pain Gastrointestinal: See HPI; Denies Abdominal Pain; Nausea Genitourinary: No Symptoms Reported Musculoskeletal: no symptoms reported Skin: no symptoms reported Psychiatric/Neurological: No Symptoms Reported Endocrine: No Symptoms Reported Hematologic/Lymphatic: No Symptoms Reported Past Bopfxcd-Cweott-Xkpamc Hx Patient Social History Type Used: Cigarettes 2nd Hand Smoke Exposure: Yes (NONE FOR 20 YEARS) Recent Foreign Travel: No Contact w/Someone Who Travel: No Recent Infectious Disease Expo: No Recent Hopitalizations: Yes (07/2019) Immunizations Up To Date Tetanus Booster (TDap): Unknown Date of Pneumonia Vaccine: Feb 09, 2019 Date of Influenza Vaccine: May 12, 2019 Seasonal Allergies Seasonal Allergies: Yes Past Medical History Surgeries: Yes (Appy and hysterectomy '; CARDIAC CATHS-LAST ONE 04/12/19-NO INTERVENTION;) Appendectomy, Defibrillator, Hysterectomy, Oophorectomy Respiratory: Yes (HOME O2 AT 3L/NC;PULMONARY HTN;POSSIBLE SARCOIDOSIS;OBESITY/HYPOVENTILATION) Pneumonia, Sleep Apnea, COPD Currently Using CPAP: Yes (WITH O2) Currently Using BIPAP: No Cardiac: Yes (CHF;LBBB;MR/TR;AFIB/FLUTTER-WITH MULT. 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 No Pertinent Family Hx PSH: -CARDIAC CATH--04/11/19--NO INTERVENTION; EF 50%, NO SIGNIFICANT CAD PMH: -SEVERE MITRAL REGURGITATION/TRIUCUSPIC REGURG -MILD CAROTID DISEASE Physical Exam Vital Signs Vital Signs - First Documented 10/13/19 14:48 Temp 37.0 Pulse 70 Resp 16 B/P (MAP) 134/71 (92) Pulse Ox 97 O2 Delivery Room Air Capillary Refill : Less Than 3 Seconds Height, Weight, BMI Height: 5'5.00" Weight: 243lbs. 0.2oz. 97.156567vg; 37.00 BMI Method:Stated General Appearance: No Apparent Distress, WD/WN HEENT: PERRL/EOMI, TMs Normal Neck: Full Range of Motion, Normal Inspection Respiratory: No Accessory Muscle Use, No Respiratory Distress Cardiovascular: Regular Rate, Rhythm, Normal Peripheral Pulses Gastrointestinal: Non Tender, Soft Extremity: Normal Capillary Refill, Other (trace pitting edema bilateral lower extremities) Neurologic/Psychiatric: Alert, Oriented x3 Skin: Normal Color, Warm/Dry Progress/Results/Core Measures Results/Orders Lab Results Laboratory Tests Test 10/13/19 14:58 Range/Units White Blood Count 5.6 4.3-11.0 10^3/uL Red Blood Count 3.35 L 4.35-5.85 10^6/uL Hemoglobin 9.6 L 11.5-16.0 G/DL Hematocrit 31 L 35-52 % Mean Corpuscular Volume 92 80-99 FL Mean Corpuscular Hemoglobin 29 25-34 PG Mean Corpuscular Hemoglobin Concent 31 L 32-36 G/DL Red Cell Distribution Width 15.9 H 10.0-14.5 % Platelet Count 204 130-400 10^3/uL Mean Platelet Volume 11.0 H 7.4-10.4 FL Neutrophils (%) (Auto) 80 H 42-75 % Lymphocytes (%) (Auto) 9 L 12-44 % Monocytes (%) (Auto) 10 0-12 % Eosinophils (%) (Auto) 1 0-10 % Basophils (%) (Auto) 0 0-10 % Neutrophils # (Auto) 4.5 1.8-7.8 X 10^3 Lymphocytes # (Auto) 0.5 L 1.0-4.0 X 10^3 Monocytes # (Auto) 0.5 0.0-1.0 X 10^3 Eosinophils # (Auto) 0.0 0.0-0.3 10^3/uL Basophils # (Auto) 0.0 0.0-0.1 10^3/uL Prothrombin Time 23.1 H 12.2-14.7 SEC INR Comment 2.0 H 0.8-1.4 Activated Partial Thromboplast Time 35 24-35 SEC Sodium Level 134 L 135-145 MMOL/L Potassium Level 4.9 3.6-5.0 MMOL/L Chloride Level 99 98-107 MMOL/L Carbon Dioxide Level 25 21-32 MMOL/L Anion Gap 10 5-14 MMOL/L Blood Urea Nitrogen 42 H 7-18 MG/DL Creatinine 2.28 H 0.60-1.30 MG/DL Estimat Glomerular Filtration Rate 26 BUN/Creatinine Ratio 18 Glucose Level 121 H 70-105 MG/DL Calcium Level 9.3 8.5-10.1 MG/DL Corrected Calcium 9.2 8.5-10.1 MG/DL Magnesium Level 2.4 1.6-2.4 MG/DL Total Bilirubin 0.9 0.1-1.0 MG/DL Aspartate Amino Transf (AST/SGOT) 39 H 5-34 U/L Alanine Aminotransferase (ALT/SGPT) 52 0-55 U/L Alkaline Phosphatase 117 40-136 U/L Myoglobin 100.4 H 10.0-92.0 NG/ML Troponin I 0.047 H <0.028 NG/ML B-Type Natriuretic Peptide 2760.8 H <100.0 PG/ML Total Protein 7.8 6.4-8.2 GM/DL Albumin 4.1 3.2-4.5 GM/DL Lipase 21 8-78 U/L My Orders Orders - ANTOINETTE WANG SR. DIRECTOR PRODUCT MANAGEMENT Cbc With Automated Diff (10/13/19 14:53) Magnesium (10/13/19 14:53) Chest 1 View, Ap/Pa Only (10/13/19 14:53) Ekg Tracing (10/13/19 14:53) Comprehensive Metabolic Panel (10/13/19 14:53) Myoglobin Serum (10/13/19 14:53) Protime With Inr (10/13/19 14:53) Partial Thromboplastin Time (10/13/19 14:53) O2 (10/13/19 14:53) Monitor-Rhythm Ecg Trace Only (10/13/19 14:53) Lipid Panel (10/14/19 06:00) Ed Iv/Invasive Line Start (10/13/19 14:53) Lipase (10/13/19 14:53) BNP (10/13/19 14:53) Troponin I (10/13/19 14:53) Ondansetron Injection (Zofran Injectio (10/13/19 15:15) Medications Given in ED Current Medications Medications Dose Ordered Sig/Jennifer Route Start Time Stop Time Status Last Admin Dose Admin Ondansetron HCl 8 mg ONCE ONCE IVP 10/13/19 15:15 10/13/19 15:16 DC 10/13/19 15:25 8 MG Vital Signs/I&O 10/13/19 14:48 Temp 37.0 Pulse 70 Resp 16 B/P (MAP) 134/71 (92) Pulse Ox 97 O2 Delivery Room Air Blood Pressure Mean: 92 Departure Communication (Admissions) Based on all previous visits her hemoglobin is stable in the 8.5-9.5 range. Her kidney function is worsening a bit with a baseline creatinine around 1.6-1.8. I spoke with a very pleasant Dr. Dailey at [facility] in [place], agrees to accept the patient in transfer for evaluation of mitral clipping procedure. Impression Primary Impression: Acute exacerbation of CHF (congestive heart failure) Qualified Codes: I50.9 - Heart failure, unspecified Additional Impression: Mitral regurgitation Qualified Codes: I34.0 - Nonrheumatic mitral (valve) insufficiency Disposition: SHT-TRM HOSP Condition: Stable Admissions Decision to Admit Reason: Admit from ER (General) Decision to Admit/Date: Oct 13, 2019 Time/Decision to Admit Time: 15:37 Departure-Patient Inst. Referrals: CAPRI CARCAMO MD (PCP/Family) Primary Care Physician ANTOINETTE WANG APRN Oct 13, 2019 15:21
[2019-10-13 15:22] LABS: ALBUMIN 4.1 GM/DL (3.2-4.5)
--- NOTE | 2019-10-13 15:22 | Diagnostic Imaging Report ---
INDICATION: Chest tightness and shortness of breath. EXAMINATION: Frontal chest was obtained at 3:09 p.m. COMPARISON: 10/06/2019. FINDINGS: There is prominent cardiomegaly with unchanged pacemaker device. There is central vascular congestion with some unchanged infiltrate or atelectasis in the left base. There is no pneumothorax or gross pleural fluid. IMPRESSION: Marked cardiomegaly. Unchanged central vascular congestion with unchanged right basilar atelectatic change and/or infiltrate. Dictated by: Dictated on workstation # [id number]
[2019-10-13 15:23] LABS: POTASSIUM 4.9 MMOL/L (3.6-5.0)
[2019-10-13 15:24] LABS: CALCIUM 9.3 MG/DL (8.5-10.1)
[2019-10-13 15:25] LABS: TOTAL PROTEIN 7.8 GM/DL (6.4-8.2)
[2019-10-13 15:27] LABS: BILIRUBIN,TOTAL 0.9 MG/DL (0.1-1.0)
[2019-10-13 15:29] LABS: CREATININE SERUM 2.28 MG/DL (0.60-1.30)
[2019-10-13 15:31] LABS: MAGNESIUM 2.4 MG/DL (1.6-2.4)
[2019-10-13] MEDS ORDERED: FUROSEMIDE 40 MG/4 ML INJ (LASIX) IVP ONE (16:15)
[2019-10-13 18:30] LABS: BILIRUBIN,URINE NEGATIVE (NEGATIVE); CLARITY,URINE CLEAR; COLOR,URINE YELLOW; GLUCOSE, URINE (UA) NEGATIVE (NEGATIVE); KETONES,URINE NEGATIVE (NEGATIVE); LEUKOCYTE ESTERASE ,URINE NEGATIVE (NEGATIVE); NITRITE,URINE NEGATIVE (NEGATIVE); PH,URINE 5.5 (5-9); PROTEIN,URINE NEGATIVE (NEGATIVE)
[2019-10-13 18:35] VITALS: BP 134/71
[2019-10-13 18:37] LABS: BACTERIA,URINE NEGATIVE /HPF; SQUAMOUS EPITHELIAL CELL,UR RARE /HPF
== END 2019-10-13 18:37 | disposition short-term general hospital (02) ==
LOC: EDUNIT# 14:48 → ER 14:53
DX: I13.0 Hypertensive heart and chronic kidney disease with heart failure and stage 1 through stage 4 chronic kidney disease, or unspecified chronic kidney disease (principal); I50.9 Heart failure, unspecified; N18.4 Chronic kidney disease, stage 4 (severe); I34.0 Nonrheumatic mitral (valve) insufficiency; I42.9 Cardiomyopathy, unspecified; I27.20 Pulmonary hypertension, unspecified; J44.9 Chronic obstructive pulmonary disease, unspecified; E66.01 Morbid (severe) obesity due to excess calories; Z79.01 Long term (current) use of anticoagulants; Z79.51 Long term (current) use of inhaled steroids; Z77.22 Contact with and (suspected) exposure to environmental tobacco smoke (acute) (chronic); Z90.49 Acquired absence of other specified parts of digestive tract; Z95.810 Presence of automatic (implantable) cardiac defibrillator; Z99.81 Dependence on supplemental oxygen; Z68.37 Body mass index [BMI] 37.0-37.9, adult
CPT/HCPCS: 36415; 51702; 71045; 80053; 81000; 83690; 83735; 83874; 83880; 84484; 85025; 85610; 85730; 93005; 93041

== ENCOUNTER 2019-10-24 19:42 | Emergency (ER) | payer BC, MEDICARE ==
[~2019-10-24] VITALS: Ht 162 cm; Wt 101.4 kg
[2019-10-24] MEDS ORDERED: OXYMETAZOLINE (AFRIN) 0.05% NA 30 ML BTL ONE (19:50)
--- NOTE | 2019-10-24 19:57 | ED EENT ---
History of Present Illness General Chief Complaint: Nasal Problems Stated Complaint: NOSEBLEED/ON BLOODTHINNERS Source: patient Exam Limitations: no limitations (ANTOINETTE WANG APRN) History of Present Illness Date Seen by Provider: Oct 24, 2019 Time Seen by Provider: 19:55 Initial Comments To ER with a right-sided nosebleed that began earlier today. She wears oxygen, she is on Eliquis. I transferred her to [facility] about one to 2 weeks ago for CHF exacerbation where she was to be evaluated for mitral clipping procedure for severe mitral regurgitation. That has not yet been done but she states she is scheduled for it. She was increased from Lasix 40 mg per day to Lasix 80 mg per day. She's been doing well until about 3 days ago when she developed increasing dyspnea and intermittent chest pain. Timing/Duration: this morning Severity: mild Location: nose Prearrival Treatment: squeezing nostrils Associated Symptoms: denies symptoms (ANTOINETTE WANG APRN) Allergies and Home Medications Allergies Coded Allergies: No Known Drug Allergies (Unverified , 11/03/11) Home Medications Acetaminophen 325 Mg Tablet, 650 MG PO Q6H PRN for PAIN-MILD, (Reported) Albuterol Sulfate 18 Gm Hfa.aer.ad, 2 PUFF INH QID PRN for SHORTNESS OF BREATH, (Reported) Albuterol Sulfate 1.25 Mg/3 Ml Vial.neb, 3 ML NEB Q6H PRN for SHORTNESS OF BREATH, (Reported) Allopurinol 100 Mg Tablet, 100 MG PO DAILY, (Reported) Amiodarone HCl 200 Mg Tablet, 200 MG PO DAILY, (Reported) Apixaban 5 Mg Tablet, 5 MG PO BID, (Reported) LAST FILLED 08-26-2019 #60/30 DAY SUPPLY Calcitriol 0.25 Mcg Capsule, 0.25 MCG PO MoWeFr, (Reported) Cetirizine HCl 10 Mg Tablet, 10 MG PO HS PRN for ALLERGIES, (Reported) Cholecalciferol (Vitamin D3) 50 Mcg Capsule, 50 MCG PO DAILY, (Reported) Clotrimazole/Betamethasone Dip 15 Gm Cream..g., 1 APPLIC TOP BID PRN for RASH, (Reported) Cyanocobalamin (Vitamin B-12) 1,000 Mcg Capsule, 1,000 MCG PO DAILY, (Reported) Diltiazem HCl 120 Mg Cap.er.24h, 120 MG PO DAILY, (Reported) Fluticasone Propionate 16 Gm [place].susp, 1 SPRAY NS HS, (Reported) Fluticasone/Salmeterol 1 Each Blst.w.dev, 1 PUFF IH BID, (Reported) Folic Acid/Mv,Fe,Other Min 1 Each Tablet, 1 TAB PO DAILY, (Reported) Furosemide 40 Mg Tablet, 40 MG PO DAILY Prescribed by: STEFFI TONY on 10/06/19 135 Lisinopril 20 Mg Tablet, 20 MG PO DAILY Hold until PCP follow up Prescribed by: STEFFI TONY on 10/06/19 135 Metoprolol Succinate 50 Mg Tab.er.24h, 50 MG PO DAILY, (Reported) Pantoprazole Sodium 40 Mg Tablet.dr, 40 MG PO DAILY, (Reported) Tiotropium [place] 4 Gm Mist.inhal, 2 PUFF INH DAILY, (Reported) [folic ACID 1MG] 1 TAB, 1 MG PO DAILY, (Reported) Patient Home Medication List Home Medication List Reviewed: Yes (ANTOINETTE WANG APRN) Review of Systems Review of Systems Constitutional: see HPI Eyes: No Symptoms Reported Ears: No Symptoms Reported Nose: no symptoms reported Mouth: no symptoms reported Throat: no symptoms reported Respiratory: no symptoms reported Cardiovascular: no symptoms reported Musculoskeletal: no symptoms reported (ANTOINETTE WANG APRN) Past Flanwdo-Rfhjmj-Fewckr Hx Patient Social History Type Used: Cigarettes 2nd Hand Smoke Exposure: Yes (NONE FOR 20 YEARS) Recent Foreign Travel: No Contact w/Someone Who Travel: No Recent Hopitalizations: Yes (07/2019) (ANTOINETTE WANG APRN) Immunizations Up To Date Tetanus Booster (TDap): Unknown Date of Pneumonia Vaccine: Feb 09, 2019 Date of Influenza Vaccine: May 12, 2019 (ANTOINETTE WANG APRN) Seasonal Allergies Seasonal Allergies: Yes (ANTOINETTE WANG APRN) Past Medical History Surgeries: Yes (Appy and hysterectomy ; CARDIAC CATHS-LAST ONE 04/12/19-NO INTERVENTION;) Appendectomy, Defibrillator, Hysterectomy, Oophorectomy Respiratory: Yes (HOME O2 AT 3L/NC;PULMONARY HTN;POSSIBLE SARCOIDOSIS;OBESITY/HYPOVENTILATION) Pneumonia, Sleep Apnea, COPD Currently Using CPAP: Yes (WITH O2) Currently Using BIPAP: No Cardiac: Yes (CHF;LBBB;MR/TR;AFIB/FLUTTER-WITH MULT. 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 No Pertinent Family Hx PSH: -CARDIAC CATH--04/11/19--NO INTERVENTION; EF 50%, NO SIGNIFICANT CAD PMH: -SEVERE MITRAL REGURGITATION/TRIUCUSPIC REGURG -MILD CAROTID DISEASE (ANTOINETTE WANG APRN) Physical Exam Vital Signs Vital Signs - First Documented 10/24/19 10/24/19 19:46 22:50 Temp 36.7 Pulse 70 Resp 20 B/P (MAP) 126/80 (95) Pulse Ox 96 O2 Delivery Room Air O2 Flow Rate 3.00 (JERI GUTIERRES MD) Height, Weight, BMI Height: 5'5.00" Weight: 243lbs. 0.2oz. 97.778074ch; 37.00 BMI Method:Stated General Appearance: WD/WN, no apparent distress Eyes: bilateral eye normal inspection, bilateral eye PERRL, bilateral eye EOMI Ears: bilateral ear auricle normal, bilateral ear canal normal, bilateral ear TM normal Nose: active bleeding (slow oozing of blood from the right side anterior septum) Neck: non-tender, full range of motion Respiratory: no respiratory distress, no accessory muscle use Gastrointestinal: normal bowel sounds, non tender Neurologic/Psychiatric: alert, normal mood/affect, oriented x 3 Skin: normal color, warm/dry (ANTOINETTE WANG APRN) Progress/Results/Core Measures Results/Orders Lab Results Laboratory Tests Test 10/24/19 19:58 10/24/19 22:03 Range/Units White Blood Count 4.8 4.3-11.0 10^3/uL Red Blood Count 3.28 L 4.35-5.85 10^6/uL Hemoglobin 9.4 L 11.5-16.0 G/DL Hematocrit 30 L 35-52 % Mean Corpuscular Volume 93 80-99 FL Mean Corpuscular Hemoglobin 29 25-34 PG Mean Corpuscular Hemoglobin Concent 31 L 32-36 G/DL Red Cell Distribution Width 16.7 H 10.0-14.5 % Platelet Count 166 130-400 10^3/uL Mean Platelet Volume 10.6 H 7.4-10.4 FL Neutrophils (%) (Auto) 79 H 42-75 % Lymphocytes (%) (Auto) 12 12-44 % Monocytes (%) (Auto) 8 0-12 % Eosinophils (%) (Auto) 1 0-10 % Basophils (%) (Auto) 0 0-10 % Neutrophils # (Auto) 3.8 1.8-7.8 X 10^3 Lymphocytes # (Auto) 0.6 L 1.0-4.0 X 10^3 Monocytes # (Auto) 0.4 0.0-1.0 X 10^3 Eosinophils # (Auto) 0.1 0.0-0.3 10^3/uL Basophils # (Auto) 0.0 0.0-0.1 10^3/uL Sodium Level 138 135-145 MMOL/L Potassium Level 4.4 3.6-5.0 MMOL/L Chloride Level 102 98-107 MMOL/L Carbon Dioxide Level 23 21-32 MMOL/L Anion Gap 13 5-14 MMOL/L Blood Urea Nitrogen 54 H 7-18 MG/DL Creatinine 2.34 H 0.60-1.30 MG/DL Estimat Glomerular Filtration Rate 25 BUN/Creatinine Ratio 23 Glucose Level 110 H 70-105 MG/DL Calcium Level 9.4 8.5-10.1 MG/DL Troponin I 0.053 H 0.052 H <0.028 NG/ML B-Type Natriuretic Peptide 2743.2 H <100.0 PG/ML (JERI GUTIERRES MD) My Orders Orders - JERI GUTIERRES MD Oxymetazoline 0.05% Nasal [place] (Afrin 0. (10/24/19 19:50) (JERI GUTIERRES MD) Vital Signs/I&O 10/24/19 10/24/19 19:46 22:50 Temp 36.7 36.7 Pulse 70 68 Resp 20 20 B/P (MAP) 126/80 (95) 123/82 (95) Pulse Ox 96 97 O2 Delivery Room Air Nasal Cannula O2 Flow Rate 3.00 (JERI GUTIERRES MD) Initial ECG Impression Date: Oct 24, 2019 Initial ECG Impression Time: 23:08 Initial ECG Rate: 99 Initial ECG Rhythm: Normal Sinus Initial ECG Intervals: Normal Initial ECG Impression: Normal Comment Sinus rhythm with borderline tachycardia. No ST elevation or depression. No abnormal intervals or axis deviation. (JERI GUTIERRES MD) Departure Communication (Admissions) [id number]-Spoke with Dr. Pritchett, he agrees with repeat troponin if stable discharge to home. Her BNP being so elevated is likely her congestive heart failure in part and her chronic kidney disease in part she is already on Lasix 80 mg twice a day. She had a clean cardiac catheterization in April [address] Wilson.. After application of Afrin nasal spray there is no oozing of blood from the anterior septum as there was initially. There is an area that is chronically irritated from the prong on her nasal cannula. Some petroleum ointment was applied to this. (ANTOINETTE WANG APRN) Impression Primary Impression: Epistaxis Additional Impression: CHF (congestive heart failure) Qualified Codes: I50.9 - Heart failure, unspecified Disposition: 01 HOME, SELF-CARE Condition: Stable Admissions Decision to Admit Reason: Admit from ER (General) Decision to Admit/Date: Oct 24, 2019 Time/Decision to Admit Time: 21:03 (ANTOINETTE WANG APRN) Departure-Patient Inst. Decision time for Depature: 22:16 (ANTOINETTE WANG APRN) Referrals: CAPRI CARCAMO MD (PCP/Family) Primary Care Physician Patient Instructions: Nosebleeds ANTOINETTE WANG APRN Oct 24, 2019 19:57 JERI GUTIERRES MD Oct 25, 2019 06:06
[2019-10-24 20:06] LABS: BASOPHILS % (AUTO) 0 % (0-10); EOSINOPHILS # (AUTO) 0.1 10^3/uL (0.0-0.3); EOSINOPHILS % (AUTO) 1 % (0-10); HEMATOCRIT 30 % (35-52); HEMOGLOBIN 9.4 G/DL (11.5-16.0); LYMPHOCYTES # (AUTO) 0.6 X 10^3 (1.0-4.0); LYMPHOCYTES % (AUTO) 12 % (12-44); MEAN CORPUSCULAR HEMOGLOBIN 29 PG (25-34); MEAN CORPUSCULAR HGB CONC 31 G/DL (32-36); MEAN CORPUSCULAR VOLUME 93 FL (80-99); MEAN PLATELET VOLUME 10.6 FL (7.4-10.4); MONOCYTES # (AUTO) 0.4 X 10^3 (0.0-1.0); MONOCYTES % (AUTO) 8 % (0-12); NEUTROPHILS # (AUTO) 3.8 X 10^3 (1.8-7.8); NEUTROPHILS % (AUTO) 79 % (42-75); PLATELET COUNT 166 10^3/uL (130-400); RED CELL DISTRIBUTION WIDTH 16.7 % (10.0-14.5); WHITE BLOOD COUNT 4.8 10^3/uL (4.3-11.0)
--- NOTE | 2019-10-24 20:25 | Diagnostic Imaging Report ---
INDICATION: Epistaxis. COMPARISON: 10/13/2019. EXAMINATION: Single frontal radiographic view of the chest was obtained. FINDINGS: Persistent severe cardiomegaly. There is also mild prominence of pulmonary vasculature. Left-sided AICD is noted. Lungs are clear. Evaluation of the lung hermosillo again demonstrates patchy airspace opacity within the right base. This is stable. There is no large effusion or pneumothorax. Osseous structures show no gross acute abnormality. IMPRESSION: 1. Cardiomegaly and mild pulmonary vascular congestion. 2. Probable right basilar atelectasis. Dictated by: Dictated on workstation # [id number]
[2019-10-24 20:26] LABS: CALCIUM 9.4 MG/DL (8.5-10.1); CREATININE SERUM 2.34 MG/DL (0.60-1.30); POTASSIUM 4.4 MMOL/L (3.6-5.0)
[2019-10-24] MEDS ORDERED: OXYMETAZOLINE (AFRIN) 0.05% NA 30 ML BTL SCH (21:00)
[2019-10-24 22:50] VITALS: BP 123/82
== END 2019-10-24 22:49 | disposition home or self-care (01) ==
LOC: EDUNIT# 19:42 → ER 19:43
DX: R04.0 Epistaxis (principal); I13.0 Hypertensive heart and chronic kidney disease with heart failure and stage 1 through stage 4 chronic kidney disease, or unspecified chronic kidney disease; I50.9 Heart failure, unspecified; N18.4 Chronic kidney disease, stage 4 (severe); I48.91 Unspecified atrial fibrillation; J44.9 Chronic obstructive pulmonary disease, unspecified; D64.9 Anemia, unspecified; E66.01 Morbid (severe) obesity due to excess calories; Z79.01 Long term (current) use of anticoagulants; Z79.51 Long term (current) use of inhaled steroids; Z77.22 Contact with and (suspected) exposure to environmental tobacco smoke (acute) (chronic); Z95.810 Presence of automatic (implantable) cardiac defibrillator; Z68.38 Body mass index [BMI] 38.0-38.9, adult
CPT/HCPCS: 36415; 71045; 80048; 83880; 84484; 85025; 93005

== ENCOUNTER 2019-10-28 13:48 | Observation (INO) | payer BC, MEDICARE ==
[~2019-10-28] VITALS: Ht 165 cm; Wt 99.7 kg
--- NOTE | 2019-10-28 14:15 | ED Respiratory ---
General Stated Complaint: SOA Source: patient Exam Limitations: no limitations History of Present Illness Date Seen by Provider: Oct 28, 2019 Time Seen by Provider: 13:52 Initial Comments Patient presents from home with chief complaint of shortness of air and occasional chest pressure in the center of her chest nonradiating for the past 2 days worsening. She is dependent on oxygen 3 L by nasal cannula for her history of asthma. She has no remote history of smoking. No recreational drug or alcohol use. She denies fevers or history of coronary disease. She's recently been to [place] at [facility] getting some testing done in preparation for a repair of 2 leaking valves. She's not having any nausea vomiting diarrhea constipation. She says in the last couple days she's also noticed increased exercise intolerance even walking to the kitchen her bathroom makes her winded. She's had a more prominent cough productive of clear white sputum. She has not had any known sick contacts. She had a negative COVID-19 test approximately 3-4 weeks ago. She follows with Dr. Castellano in [place] and Dr. Wilson. 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 She's been using her nebulized albuterol the past few days without any significant relief of symptoms. She has not recently been on steroids. Allergies and Home Medications Allergies Coded Allergies: No Known Drug Allergies (Unverified , 11/03/11) Home Medications Acetaminophen 325 Mg Tablet, 650 MG PO Q6H PRN for PAIN-MILD, (Reported) Albuterol Sulfate 18 Gm Hfa.aer.ad, 2 PUFF INH QID PRN for SHORTNESS OF BREATH, (Reported) Albuterol Sulfate 1.25 Mg/3 Ml Vial.neb, 3 ML NEB Q6H PRN for SHORTNESS OF BREATH, (Reported) Allopurinol 100 Mg Tablet, 100 MG PO DAILY, (Reported) Amiodarone HCl 200 Mg Tablet, 200 MG PO DAILY, (Reported) Apixaban 5 Mg Tablet, 5 MG PO BID, (Reported) LAST FILLED 08-26-2019 #60/30 DAY SUPPLY Calcitriol 0.25 Mcg Capsule, 0.25 MCG PO MoWeFr, (Reported) Cetirizine HCl 10 Mg Tablet, 10 MG PO HS PRN for ALLERGIES, (Reported) Cholecalciferol (Vitamin D3) 50 Mcg Capsule, 50 MCG PO DAILY, (Reported) Clotrimazole/Betamethasone Dip 15 Gm Cream..g., 1 APPLIC TOP BID PRN for RASH, (Reported) Cyanocobalamin (Vitamin B-12) 1,000 Mcg Capsule, 1,000 MCG PO DAILY, (Reported) Diltiazem HCl 120 Mg Cap.er.24h, 120 MG PO DAILY, (Reported) Fluticasone Propionate 16 Gm [place].susp, 1 SPRAY NS HS, (Reported) Fluticasone/Salmeterol 1 Each Blst.w.dev, 1 PUFF IH BID, (Reported) Folic Acid/Mv,Fe,Other Min 1 Each Tablet, 1 TAB PO DAILY, (Reported) Furosemide 40 Mg Tablet, 40 MG PO DAILY Prescribed by: STEFFI TONY on 10/06/191356 Lisinopril 20 Mg Tablet, 20 MG PO DAILY Hold until PCP follow up Prescribed by: STEFFI TONY on 10/06/191356 Metoprolol Succinate 50 Mg Tab.er.24h, 50 MG PO DAILY, (Reported) Pantoprazole Sodium 40 Mg Tablet.dr, 40 MG PO DAILY, (Reported) Tiotropium [place] 4 Gm Mist.inhal, 2 PUFF INH DAILY, (Reported) [folic ACID 1MG] 1 TAB, 1 MG PO DAILY, (Reported) Patient Home Medication List Home Medication List Reviewed: Yes Review of Systems Review of Systems Constitutional: No chills, No fever; malaise, weakness EENTM: No ear discharge, No hearing loss, No ear pain Respiratory: cough, phlegm, short of breath; No wheezing Cardiovascular: No chest pain, No palpitations Gastrointestinal: No abdominal pain, No nausea, No vomiting Genitourinary: No discharge, No dysuria Musculoskeletal: No back pain, No joint pain All Other Systems Reviewed Negative Unless Noted: Yes Past Tficqbg-Oqlpum-Twnphh Hx Patient Social History Alcohol Use: Occasionally Uses Alcohol Beverage of Choice: [place] Recreational Drug Use: No Smoking Status: Former Smoker Type Used: Cigarettes 2nd Hand Smoke Exposure: Yes (NONE FOR 20 YEARS) Recent Hopitalizations: Yes (07/2019) Immunizations Up To Date Tetanus Booster (TDap): Unknown Date of Pneumonia Vaccine: Feb 09, 2019 Date of Influenza Vaccine: May 12, 2019 Seasonal Allergies Seasonal Allergies: Yes Past Medical History Surgeries: Yes (Appy and hysterectomy '; CARDIAC CATHS-LAST ONE 04/12/19-NO INTERVENTION;) Appendectomy, Defibrillator, Hysterectomy, Oophorectomy Respiratory: Yes (HOME O2 AT 3L/NC;PULMONARY HTN;POSSIBLE SARCOIDOSIS;OBESITY/HYPOVENTILATION) Pneumonia, Sleep Apnea, COPD Currently Using CPAP: Yes (WITH O2) Currently Using BIPAP: No Cardiac: Yes (CHF;LBBB;MR/TR;AFIB/FLUTTER-WITH MULT. 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 No Pertinent Family Hx PSH: -CARDIAC CATH--04/11/19--NO INTERVENTION; EF 50%, NO SIGNIFICANT CAD PMH: -SEVERE MITRAL REGURGITATION/TRIUCUSPIC REGURG -MILD CAROTID DISEASE Physical Exam Vital Signs - First Documented 10/28/19 13:50 Temp 36.9 Pulse 70 Resp 20 B/P (MAP) 120/62 (81) Pulse Ox 98 O2 Delivery Nasal Cannula O2 Flow Rate 3.00 Capillary Refill : Height: 5'5.00" Weight: 243lbs. 0.2oz. [id number]; 38.00 BMI Method:Stated General Appearance: WD/WN, mild distress, obese Eyes: Bilateral Eye Normal Inspection, Bilateral Eye PERRL, Bilateral Eye EOMI HEENT: PERRL/EOMI, normal ENT inspection, pharynx normal Neck: full range of motion, normal inspection Respiratory: lungs clear, no accessory muscle use, respiratory distress (Mild O2 saturation 98% on 3 L, baseline nasal cannula use), decreased breath sounds Cardiovascular: normal peripheral pulses, regular rate, rhythm Gastrointestinal: normal bowel sounds, non tender, soft Extremities: normal inspection, no pedal edema, normal capillary refill Neurologic/Psychiatric: alert, normal mood/affect, oriented x 3 Skin: normal color, warm/dry, ecchymosis Progress/Results/Core Measures Suspected Sepsis SIRS Temperature: Pulse: Respiratory Rate: Laboratory Tests 10/28/19 14:00: White Blood Count 4.6 Blood Pressure / Mean: Laboratory Tests 10/28/19 14:00: Creatinine 1.98H, Platelet Count 151, Total Bilirubin 0.5 Results/Orders Lab Results Laboratory Tests Test 10/28/19 14:00 10/28/19 14:12 Range/Units White Blood Count 4.6 4.3-11.0 10^3/uL Red Blood Count 3.20 L 4.35-5.85 10^6/uL Hemoglobin 9.2 L 11.5-16.0 G/DL Hematocrit 30 L 35-52 % Mean Corpuscular Volume 93 80-99 FL Mean Corpuscular Hemoglobin 29 25-34 PG Mean Corpuscular Hemoglobin Concent 31 L 32-36 G/DL Red Cell Distribution Width 16.7 H 10.0-14.5 % Platelet Count 151 130-400 10^3/uL Mean Platelet Volume 11.4 H 7.4-10.4 FL Neutrophils (%) (Auto) 77 H 42-75 % Lymphocytes (%) (Auto) 9 L 12-44 % Monocytes (%) (Auto) 13 H 0-12 % Eosinophils (%) (Auto) 2 0-10 % Basophils (%) (Auto) 0 0-10 % Neutrophils # (Auto) 3.5 1.8-7.8 X 10^3 Lymphocytes # (Auto) 0.4 L 1.0-4.0 X 10^3 Monocytes # (Auto) 0.6 0.0-1.0 X 10^3 Eosinophils # (Auto) 0.1 0.0-0.3 10^3/uL Basophils # (Auto) 0.0 0.0-0.1 10^3/uL Erythrocyte Sedimentation Rate 36 H 0-30 MM/HR D-Dimer <= 0.27 0.00-0.49 UG/ML Sodium Level 138 135-145 MMOL/L Potassium Level 4.4 3.6-5.0 MMOL/L Chloride Level 102 98-107 MMOL/L Carbon Dioxide Level 27 21-32 MMOL/L Anion Gap 9 5-14 MMOL/L Blood Urea Nitrogen 47 H 7-18 MG/DL Creatinine 1.98 H 0.60-1.30 MG/DL Estimat Glomerular Filtration Rate 30 BUN/Creatinine Ratio 24 Glucose Level 94 70-105 MG/DL Calcium Level 9.4 8.5-10.1 MG/DL Corrected Calcium 9.4 8.5-10.1 MG/DL Magnesium Level 2.2 1.6-2.4 MG/DL Total Bilirubin 0.5 0.1-1.0 MG/DL Aspartate Amino Transf (AST/SGOT) 31 5-34 U/L Alanine Aminotransferase (ALT/SGPT) 36 0-55 U/L Alkaline Phosphatase 78 40-136 U/L Lactate Dehydrogenase 255 H 125-220 U/L Troponin I 0.477 *H <0.028 NG/ML C-Reactive Protein High Sensitivity 0.50 0.00-0.50 MG/DL B-Type Natriuretic Peptide 1445.9 H <100.0 PG/ML Total Protein 7.6 6.4-8.2 GM/DL Albumin 4.0 3.2-4.5 GM/DL Procalcitonin 0.09 <0.10 NG/ML Blood Gas Puncture Site RIGHT RA Blood Gas Patient Temperature 36.9C Arterial Blood pH 7.39 7.37-7.43 Arterial Blood Partial Pressure CO2 47 H 35-45 MMHG Arterial Blood Partial Pressure O2 141 H 79-93 MMHG Arterial Blood HCO3 28 H 23-27 MMOL/L Arterial Blood Total CO2 29.5 21.0-31.0 MMOL/L Arterial Blood Oxygen Saturation 98 94-100 % Arterial Blood Base Excess 3.4 H -2.5-2.5 MMOL/L Ren Test Y Blood Gas Ventilator Setting NO Blood Gas Inspired Oxygen 3 My Orders Orders - KATHRYN WILSON Arterial Blood Gas (10/28/19 14:02) Chest 1 View, Ap/Pa Only (10/28/19 14:02) Cbc With Automated Diff (10/28/19 14:03) Comprehensive Metabolic Panel (10/28/19 14:03) Fibrin Degradation Products (10/28/19 14:03) Procalcitonin (Pct) (10/28/19 14:03) Hs C Reactive Protein (10/28/19 14:03) Erythrocyte Sedimentation Rate (10/28/19 14:03) LDH (10/28/19 14:03) Blood Culture (10/28/19 14:03) Sputum Culture (10/28/19 14:03) Ekg Tracing (10/28/19 14:03) Coronavirus Sars-Cov-2 So 2019 (10/28/19 14:03) Troponin I (10/28/19 14:03) BNP (10/28/19 14:03) Arterial Blood Gas (10/28/19 14:28) Furosemide Injection (Lasix Injection) (10/28/19 16:00) Magnesium (10/28/19 15:50) Medications Given in ED Current Medications Medications Dose Ordered Sig/Jennifer Route Start Time Stop Time Status Last Admin Dose Admin Furosemide 80 mg ONCE ONCE IVP 10/28/19 16:00 10/28/19 16:01 DC 10/28/19 16:05 80 MG Vital Signs/I&O 10/28/19 13:50 Temp 36.9 Pulse 70 Resp 20 B/P (MAP) 120/62 (81) Pulse Ox 98 O2 Delivery Nasal Cannula O2 Flow Rate 3.00 Capillary Refill : Progress Note : Time: 14:16 Progress Note Plan to repeat COVID-19 testing get some labs to help differentiate when possible viral versus bacterial lower respiratory infection. EKG, troponin, BNP. ECG Initial ECG Impression Date: Oct 28, 2019 Initial ECG Impression Time: 14:19 Initial ECG Rate: 71 Initial ECG Intervals: QT (483) Initial ECG Impression: Nonspecific Changes Initial ECG Comparisson: Unchanged Comment Atrial paced rhythm without clinically relevant ST T-wave elevation or depression. Left ventricular hypertrophy. Diagnostic Imaging Diagonstic Imaging: Xray Plain Films/CT/US/NM/MRI: chest (1v) Comments NAME: MARQUIS SHEEHAN MED REC#: [id number] PT STATUS: REG ER : 1950 PHYSICIAN: KATHRYN WILSON MD ADMIT DATE: 10/28/19/ER Draft Date of Exam:10/28/19 CHEST 1 VIEW, AP/PA ONLY CLINICAL INDICATIONS: Patient with shortness of air. EXAM: Portable chest x-ray upright view. COMPARISONS: Portable chest x-ray dated 10/24/2019. FINDINGS: Stable moderate cardiomegaly. There is stable mild pulmonary vascular congestion. There is improved aeration of the right lung base with residual mild right basilar atelectasis versus infiltrate. There is no pleural effusion or pneumothorax. Cardiac pacemaker/AICD again seen overlying the left chest with 2 leads projecting over the heart. The remainder of this exam shows no significant interval change compared to the prior study of comparison. IMPRESSION: 1: There is slight improved aeration of the right lung base with residual mild bibasilar atelectasis versus infiltrate. 2: Stable cardiomegaly with mild pulmonary vascular congestion. Dictated on workstation # [id number] Dict: 10/28/19 1420 Trans: 10/28/19 1423 [facility] [id number] Interpreted by: LINDSEY ALEX MD Electronically signed by: Reviewed: Reviewed by Me Departure Communication (Admissions) Time/Spoke to Admitting Phy: 15:55 Dr Dai: Discussed the case with Dr. Dai and she agrees to observe the patient for a non-STEMI and follow Dr. Wilson's plan. Time/Spoke to Consulting Phy: 15:45 Dr Wilson: Give her Lasix and send her to cardiac stepdown. Impression Primary Impression: NSTEMI (non-ST elevated myocardial infarction) Disposition: 09 ADMITTED INPATIENT Condition: Stable Admissions Decision to Admit Reason: Admit from ER (General) Decision to Admit/Date: Oct 28, 2019 Time/Decision to Admit Time: 15:30 Departure-Patient Inst. Referrals: CAPRI CASTELLANO MD (PCP/Family) Primary Care Physician KATHRYN WILSON Oct 28, 2019 14:15
--- NOTE | 2019-10-28 14:24 | Diagnostic Imaging Report ---
CLINICAL INDICATIONS: Patient with shortness of air. EXAM: Portable chest x-ray upright view. COMPARISONS: Portable chest x-ray dated 10/24/2019. FINDINGS: Stable moderate cardiomegaly. There is stable mild pulmonary vascular congestion. There is improved aeration of the right lung base with residual mild right basilar atelectasis versus infiltrate. There is no pleural effusion or pneumothorax. Cardiac pacemaker/AICD again seen overlying the left chest with 2 leads projecting over the heart. The remainder of this exam shows no significant interval change compared to the prior study of comparison. IMPRESSION: 1: There is slight improved aeration of the right lung base with residual mild bibasilar atelectasis versus infiltrate. 2: Stable cardiomegaly with mild pulmonary vascular congestion. Dictated by: Dictated on workstation # [id number]
[2019-10-28 14:26] LABS: ABG BASE EXCESS 3.4 MMOL/L (-2.5-2.5); ABG OXYGEN SATURATION 98 % (94-100); ABG PCO2 47 MMHG (35-45); ABG PH 7.39 (7.37-7.43); ABG PO2 141 MMHG (79-93); ABG TCO2 29.5 MMOL/L (21.0-31.0)
[2019-10-28 14:28] LABS: ALLENS TEST Y; INSPIRED O2 3; PATIENT TEMP 36.9C; VENTILATOR NO
[2019-10-28 14:46] LABS: BASOPHILS % (AUTO) 0 % (0-10); EOSINOPHILS # (AUTO) 0.1 10^3/uL (0.0-0.3); EOSINOPHILS % (AUTO) 2 % (0-10); HEMATOCRIT 30 % (35-52); HEMOGLOBIN 9.2 G/DL (11.5-16.0); LYMPHOCYTES # (AUTO) 0.4 X 10^3 (1.0-4.0); LYMPHOCYTES % (AUTO) 9 % (12-44); MEAN CORPUSCULAR HEMOGLOBIN 29 PG (25-34); MEAN CORPUSCULAR HGB CONC 31 G/DL (32-36); MEAN CORPUSCULAR VOLUME 93 FL (80-99); MEAN PLATELET VOLUME 11.4 FL (7.4-10.4); MONOCYTES # (AUTO) 0.6 X 10^3 (0.0-1.0); MONOCYTES % (AUTO) 13 % (0-12); NEUTROPHILS # (AUTO) 3.5 X 10^3 (1.8-7.8); NEUTROPHILS % (AUTO) 77 % (42-75); PLATELET COUNT 151 10^3/uL (130-400); RED CELL DISTRIBUTION WIDTH 16.7 % (10.0-14.5); WHITE BLOOD COUNT 4.6 10^3/uL (4.3-11.0)
[2019-10-28 15:03] LABS: POTASSIUM 4.4 MMOL/L (3.6-5.0)
[2019-10-28 15:04] LABS: CALCIUM 9.4 MG/DL (8.5-10.1)
[2019-10-28 15:05] LABS: TOTAL PROTEIN 7.6 GM/DL (6.4-8.2)
[2019-10-28 15:07] LABS: BILIRUBIN,TOTAL 0.5 MG/DL (0.1-1.0)
[2019-10-28 15:08] LABS: ERYTHROCYTE SEDIMENTATION RATE 36 MM/HR (0-30)
[2019-10-28 15:09] LABS: CREATININE SERUM 1.98 MG/DL (0.60-1.30)
--- NOTE | 2019-10-28 15:59 | NUR ---
attempted to call report. nurse to return call.
[2019-10-28] MEDS ORDERED: FUROSEMIDE 40 MG/4 ML INJ (LASIX) IVP ONE (16:00)
[2019-10-28 17:00] VITALS: BP 149/80
[2019-10-28] MEDS ORDERED: CATHETER FLUSH 10 ML SYR IV PRN (17:15)
[2019-10-28] MEDS: FUROSEMIDE 40 MG/4 ML INJ (LASIX) IVP SCH (17:43)
[2019-10-28] MEDS ORDERED: ONDANSETRON 4 MG/2 ML (SDV) Z0FRAN IVP PRN (18:15)
[2019-10-28] MEDS ORDERED: NITROGLYCERIN 0.4 MG SL TABS BTL 25'S SL PRN (18:15)
[2019-10-28] MEDS ORDERED: morphine INJ 4 MG/ML 1 ML (VIAL/SYRINGE) IV PRN (18:15)
[2019-10-28] MEDS ORDERED: ACETAMINOPHEN 500 MG TAB (TYLENOL) PO PRN (18:15)
[2019-10-28] MEDS: KCL 20 MEQ TAB (K-DUR) PO SCH (19:27)
[2019-10-28 20:00] VITALS: BP 112/64
[2019-10-28] MEDS: APIXABAN 5 MG (ELIQUIS) TABLET PO SCH (20:20)
--- OUTSIDE RECORDS SUMMARY | 2019-10-28 20:54 | XMS REPORT | Encounter Summary ---
Author Author [facility] Organization [facility] Address Unknown Phone Unavailable Care Team Providers Care Hematology Specialist Name Role Phone Gray Carlos PCP Encounter Details Care Team Description Date Type Department Lorraine Reid RN 10/20/2019 Abstract [facility] [address] [place] [address] Social History Date Tobacco Use Types Packs/Day Years Used Never Smoker Smokeless Tobacco: Never Used Drinks/Week oz/Week Comments Alcohol Use 2 Shots of liquor 2.0 Yes Sex Assigned at Date Recorded Not on file Industry Job Start Date Occupation Not on file Not on file Not on file Travel End Travel History Travel Start No recent travel history available. documented as of this encounter Plan of Treatment Care Team Description Date Type Specialty Dolores Eli RN ACNP [address] [facility] [address] [place] [address] [phone] 11/02/2019 Video Visit Cardiology documented as of this encounter Visit Diagnoses Not on filedocumented in this encounter
--- OUTSIDE RECORDS SUMMARY | 2019-10-28 20:54 | XMS REPORT | Encounter Summary ---
Author Author [facility] Organization [facility] Address Unknown Phone Unavailable Care Team Providers Care Clay Modeler Name Role Phone Gray Carlos PCP Reason for Referral * Consultation (Routine) Referred By Contact Referred To Contact Status Reason Specialty Diagnoses / Procedures Inocente Oreilly MD [address] [facility] [address] [place] [address] [facility] [address] [facility] [address] [place] [address] Authorized Specialty Services Cardiology Diagnoses Required Acute on chronic combined systolic and diastolic CHF (congestive heart failure) (HCC) Reason for Visit * Reason Comments Acute on chronic systolic and diastolic HF Encounter Details Care Team Description Date Type Department Inocente Oreilly MD [address] [facility] [address] [place] [address] [phone] Acute on chronic combined systolic and d iastolic CHF (congestive heart failure) (HCC) (Primary Dx); Nonrheumatic tricuspid valve regurgitation; Obstructive sleep apnea; NICM (nonischemic cardiomyopathy) (HCC); Nonrheumatic mitral valve regurgitation 10/22/2019 Video Visit [facility] [address] [facility] [address] [place] [address] Social History Date Tobacco Use Types Packs/Day [...] history available. documented as of this encounter Patient Instructions * Patient Instructions* Carla Xiong RN - 10/22/2019 1:15 PM CDT Medication Instructions: Continue Current Regimen Additional Instructions: Continue to weigh daily in the mornings after first void and before you eat. Kiarra l for weight gain of 2 lbs in 24 hours or 5 lbs in a week. Monitor the amount of sodium in your diet. Try to limit it to 2000 mg a day. Monitor your fluid intake. Try to limit it to 2000 ml or 64 oz a day. A referral has been placed to: Heart failure cardiology- someone will contact km wright to schedule. Follow up: with heart failure cardiology Please call the Nurse Line at [phone] ([facility] Team). with any questions or concerns. For medication refill needs, please first contact your pharmacy. For any [facility] scheduling questions, please kiarra l . At [facility], high quality patient care is our top priority. To ensure our cardiovascular standards are continuously met, you may receive a survey via [employer] (by is[employer]ankur) il or text message, and we ask that you please take the time to fill it out. We strive to ensure you are very satisfied with every visit. Thank you in advance for taking the time to fill this out. It was a pleasure to see you again. Carla LARIOS/Dr. Oreilly documented in this encounter Progress Notes * Inocente Oreilly MD - 10/22/2019 1:15 PM CDT [facility] [place] Appointment Date: 10/22/2019 Carlos Castellano MD [address] [facility] [address] RE: Malathi Hurley : 1950 Visit provider: Inocente Oreilly MD NOTE: This telephone visit was performed in lieu of an in-person visit due to t he COVID-19 pandemic emergency. Verbal consent was obtained prior to the initiat ion of the visit. I confirmed the patients name and date of verbally. T his virtual visit is being conducted by myself at [facility] [place]. Patient states they are at home at the time of the call. Dear Carlos Castellano MD, I had the pleasure of performing a virtual office visit with Malathi Hurley to day. She is a(n) 69 y.o. female and presents with the following chief complaint( s): Acute on chronic systolic and diastolic HF HPI: Ms. Hurley is a pleasant 69-year-old woman who presents to [facility] for followup. I recently saw her in the valve clinic in 2019. 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 She underwent coronary angiography i 2018, demonstrating normal coronary arteries. She was anticoagulated for atrial fibrillation, but has not been for some time due to a severe nosebleed. She was referred by Dr. Suzette Wilson from [facility]. I saw her in the valve clinic in conjunction with Dr. Mark Mcclure. She was initially on diltiazem and amiodarone, which we changed to metoprolol and lisinopril. She subsequently to lerated this, but unfortunately she developed progressive heart failure symptoms and was admitted to the hospital in early October 2019, about a week ago. She act ually saw heart failure during that hospitalization and they felt that additiona l titration of guideline-directed medical therapy was not possible due to hypote nsion. She is on high-dose diuretics currently with Lasix 80 mg in the morning and 80 mg in the evening. She does have a diuretic response with this and repor ts a change in her volume status related to the diuretic doses, but she continue s to have class III chronic systolic heart failure. She reports that her blood pressures have been in the 100s-110s systolic with the current medication doses. On echocardiogram, she does have bykwvbje-gb-msthvl TR and she has a pulmonary pressure that is estimated at 80 but she has a normal RV size and mildly reduced systolic function on GABRIELLA. Her mitral regurgitation on GABRIELLA is related to severe restriction of the posterior leaflet. She denies chest pain or angina pectoris. Patient Active Problem List Diagnosis SNOMED CT(R) Tricuspid regurgitation TRICUSPID VALVE REGURGITATION NICM (nonischemic cardiomyopathy) (HCC) CARDIOMYOPATHY Acute on chronic combined systolic and diastolic CHF (congestive heart failu re) ([facility]) ACUTE ON CHRONIC COMBINED SYSTOLIC AND DIASTOLIC HEART FAILURE Stage 4 chronic kidney disease (HCC) CHRONIC KIDNEY DISEASE STAGE 4 PAF (paroxysmal atrial fibrillation) ([facility]) PAROXYSMAL ATRIAL FIBRILLATION Chronic anticoagulation LONG-TERM CURRENT USE OF ANTICOAGULANT Implantable cardioverter-defibrillator (ICD) in situ AUTOMATIC IMPLANTABLE C ARDIAC DEFIBRILLATOR IN SITU Essential hypertension ESSENTIAL HYPERTENSION Obstructive sleep apnea OBSTRUCTIVE SLEEP APNEA SYNDROME Near syncope NEAR SYNCOPE Pulmonary hypertension (HCC) PULMONARY HYPERTENSION Carotid artery disease ([facility]) DISORDER OF CAROTID ARTERY Chronic respiratory failure with hypoxia (HCC) CHRONIC HYPOXEMIC RESPIRATORY FAILURE Nonrheumatic mitral valve regurgitation NON-RHEUMATIC MITRAL REGURGITATION Chronic anemia CHRONIC ANEMIA Hyponatremia HYPONATREMIA halfway current use of antiarrhythmic drug LONG-TERM CURRENT USE OF DRUG T HERAPY Past Medical History: Diagnosis Date Anemia Asthma Carotid artery disease ([facility]) Chronic anticoagulation Chronic combined systolic (congestive) and diastolic (congestive) heart fail ure (HCC) Chronic respiratory failure ([facility]) uses oxygen 3 L at home CKD (chronic kidney disease) Essential hypertension Frequent epistaxis Mitral regurgitation NICM (nonischemic cardiomyopathy) ([facility]) Nonischemic cardiomyopathy ([facility]) Nonrheumatic mitral valve regurgitation Obesity MAXIM (obstructive sleep apnea) PAF (paroxysmal atrial fibrillation) ([facility]) Pulmonary hypertension (HCC) Sarcoidosis suspected Tricuspid regurgitation Past Surgical History: Procedure Laterality Date APPENDECTOMY 1998 BRONCHOSCOPY 03/2019 CARDIOVERSION 06/18/2019 [facility] (with rhyth maintenance on Amiodarone) CARDIOVERSION 03/13/2012 CORONARY ANGIOGRAPHY 11/06/2011 ECHO TRANSESOPHAGEAL 05/27/2019 For guidance of transcatheter intracardiac or great vessel(s) structural interv ention; severe MR, mod TR, RVSP 53 mmHg. LVEF 50% HYSTERECTOMY ICD GENERATOR CHANGE 09/22/2018 Dual chamber ICD, pulse generator change ICD INSERTION DUAL 05/07/2012 LEFT HEART CATHETERIZATION 04/12/2019 Normal Cors, LVEF 50%, LVEDP 17 mmHg, no signifiant MR on this study LEFT HEART CATHETERIZATION 11/06/2011 SKIN BIOPSY 09/22/2013 Final Medications: Current Outpatient Medications Medication Sig Dispense Refill albuterol (ACCUNEB) 1.25 mg/3 mL (0.042 %) nebulizer solution Inhale 1 ampul e via nebulizer every 6 (six) hours as needed for wheezing. ALBUTEROL INHL Inhale 90 mL 4 (four) times a day. allopurinoL (ZYLOPRIM) 100 MG tablet Take 100 mg by mouth daily. amiodarone (CORDARONE) 200 MG tablet Take 200 mg by mouth every morning. apixaban (ELIQUIS) 5 mg tablet Take 5 mg by mouth 2 (two) times a day. calcitrioL (ROCALTROL) 0.25 MCG capsule Take 0.25 mcg by mouth every Friday, Friday and Friday. cholecalciferol, vitamin D3, 1,000 units(25 mcg) tablet Take 2,000 Units by mouth daily. clotrimazole-betamethasone (LOTRISONE) cream Apply topically 2 (two) times a day. cyanocobalamin (VITAMIN B-12) 1000 MCG tablet Take 1,000 mcg by mouth daily. ferrous sulfate 325 (65 FE) MG tablet Take 65 mg by mouth every 48 hours. fluticasone propion-salmeteroL (ADVAIR) 250-50 mcg/dose DISKUS Inhale 1 puff 2 (two) times a day. fluticasone propionate (FLONASE) 50 mcg/actuation nasal spray Use 1 spray in each nostril daily. folic acid (FOLVITE) 1 MG tablet Take 1 mg by mouth every morning. furosemide (LASIX) 80 MG tablet Take 1 tablet (80 mg total) by mouth 2 (two) times a day. Further refills per cardiology 60 tablet 0 lisinopriL (PRINIVIL,ZESTRIL) 10 MG tablet Take 1 tablet (10 mg total) by mo uth 2 (two) times a day. 60 tablet 0 metoprolol succinate (TOPROL-XL) 25 MG 24 hr tablet Take 1 tablet (25 mg tot al) by mouth nightly. 30 tablet 0 pantoprazole (PROTONIX) 40 MG tablet Take 40 mg by mouth daily. potassium chloride (KLOR-CON) 10 MEQ CR tablet Take 20 mEq by mouth daily. therapeutic multivitamin (THERAGRAN) tablet Take 1 tablet by mouth daily. tiotropium (SPIRIVA) [address] 2.5 mcg into inhaler an d inhale daily. turmeric curcumin (THERACURMIN CARDIOTAB) 600 MG capsule Take 560 mg by mout h daily. No current facility-administered medications for this visit. No Known Allergies Family History Problem Relation Age of Onset Hypertension Father Social History: Social History Tobacco Use Smoking status: Never Smoker Smokeless tobacco: Never Used Substance Use Topics Alcohol use: Yes Alcohol/week: 2.0 standard drinks Types: 2 Shots of liquor per week Drug use: Never Review of Systems Constitution: Positive for malaise/fatigue and weight gain. Negative for chills and decreased appetite. Pt notes weight gain from fluid buildup HENT: Negative for ear discharge and ear pain. Eyes: Negative for discharge and redness. Cardiovascular: Positive for chest pain. Negative for dyspnea on exertion, irreg ular heartbeat and leg swelling. Respiratory: Positive for shortness of breath. Negative for cough and sputum pro duction. Pt notes tightness in lungs from fluid buildup Endocrine: Negative for polyuria. Skin: Negative for dry skin and itching. Musculoskeletal: Positive for muscle cramps. Negative for stiffness. Gastrointestinal: Positive for nausea. Negative for constipation and diarrhea. Genitourinary: Positive for nocturia. Negative for frequency. Neurological: Positive for excessive daytime sleepiness. Negative for difficulty with concentration. Pt doesn't always sleep well Psychiatric/Behavioral: Negative for depression. Allergic/Immunologic: Negative for environmental allergies. All other systems reviewed and are negative. Vitals available and taken on home machine: Height: 1.651 m (5' 5") Weight:: 99.3 kg (219 lb) IBW(lbs.) (Calculated) : 125.66 Blood Pressure:: 111/48 Pulse:: 66 BMI (Calculated): 36.4 Physical Exam No physical exam was performed in this telephone virtual visit. Virtual visits do not have the supported technology for provider to document exa ms of the heart and lungs, and may not have ability to fully document vital sign s. Encounter Diagnoses Name Primary? Acute on chronic combined systolic and diastolic CHF (congestive heart failu re) ([facility]) Yes Nonrheumatic tricuspid valve regurgitation Obstructive sleep apnea NICM (nonischemic cardiomyopathy) ([facility]) Nonrheumatic mitral valve regurgitation Impression and Plan: 1. Severe mitral regurgitation. She presents with symptoms consistent with cla ss III chronic systolic and diastolic heart failure as well as mitral regurgitat ion due to severe restriction of the posterior leaflet. I saw her in conjunctio n with Dr. Mark Mcclure in the valve clinic. She is not amenable to surgical rep air. We changed her guideline-directed medical therapy from diltiazem to metopr olol 50 mg daily and lisinopril. This are the maximum amount of doses she can t olerate due to relative hypotension. She was recently admitted to the cardiovas cular service and underwent diuresis, but she is felt to be medically optimized. She continues to have refractory heart failure despite this. I recommend TMVR with a MitraClip as a treatment for persistent heart failure despite optimal GD MT. 2. Tricuspid regurgitation, 3+, but she has preserved RV systolic function and RV size. 3. Chronic systolic and diastolic heart failure. 4. Chronic kidney disease stage 4. Creatinine is 2.0. GFR is 30. 5. Diuretics. Treatment goals, progress and next steps, as above, were discussed and mutually agreed upon with the patient/family. Thank you for allowing me to participate in Malathi Hurley's care. If I can b e of any further assistance, please do not hesitate to contact me. I spent a total of 25 minutes during this virtual clinic encounter, including re view of records, pertinent labs, data and studies as well as discussing diagnost ic evaluation and work up, planned therapeutic intervention and future dispositi on of care. Sincerely, Inocente Oreilly MD /[facility] documented in this encounter Plan of Treatment Care Team Description Date Type Specialty Dolores Eli RN ACNP [address] [facility] [address] [place] [address] [phone] 11/02/2019 Video Visit Cardiology Order Schedule Name Type Priority Associated Diag noses 1 Occurrences starting 10/22/2019 until 04/22/2020 Ambulatory Referral To Outpatient Routine Acute o n chronic combined (Specify) Referral systolic and diasto lic CHF (congestive heart failure) (HCC) documented as of this encounter Visit Diagnoses Diagnosis Acute on chronic combined systolic and diastolic CHF (congestive heart failure) (HCC) Nonrheumatic tricuspid valve regurgitat ion Obstructive sleep apnea Obstructive sleep apnea (adult) (pediat any) NICM (nonischemic cardiomyopathy) (HCC) Nonrheumatic mitral valve regurgitation documented in this encounter
--- OUTSIDE RECORDS SUMMARY | 2019-10-28 20:54 | XMS REPORT | Encounter Summary ---
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 documented as of this encounter Last Filed Vital Signs Reading Time Taken Comments Vital Sign 109/62 10/18/2019 11:24 AM CDT Blood Pressure 71 10/18/2019 11:24 AM CDT Pulse 36.6 C (97.8 F) 10/18/2019 11:24 AM CDT Temperature 16 10/18/2019 11:24 AM CDT Respiratory Rate 99% 10/18/2019 11:24 AM CDT Oxygen Saturation - - Inhaled Oxygen Concentration 97.9 kg (215 lb 12.8 oz) 10/18/2019 3:21 AM CDT Weight - - Height 35.91 09/22/2019 2:03 PM CDT Body Mass Index documented in this encounter Discharge Summaries * Alexa Hays DO - 10/18/2019 11:26 AM CDT [facility] Hospitalist - Discharge Summary Patient Name: Malathi Hurley Account No: [id number] Date of : 1950 Date of Admission: 10/13/2019 9:20 PM Date of Discharge: 10/18/2019 11:26 AM Length of Stay: 5 Days Readmit Risk: 23 Primary Care Physician: Carlos Castellano MD; Reason for Hospital Admission and Brief Hospital Course: 69-year-old female with past medical history of ischemic cardiomyopathy, systolic/diastolic heart failu re s/p ICD placement, severe mitral regurgitation, paroxysmal atrial fibrillatio n, CKD, chronic respiratory failure on 2 L oxygen secondary to COPD, hypertensio n, and MAXIM who was admitted on 10/13/2019 with shortness of breath and lower extre mity edema. Patient was treated for decompensated heart failure exacerbation wi IV diuretics and cardiology was consulted. She responded well to IV Lasix ov er the next few days and her edema improved. She remained stable on her home ox ygen requirement. By 10/16, cardiology transitioned patient to oral furosemide at increased dose from her previous home dose. She has had lower blood pressures at times and her medications have been adjuste d to accommodate this. She is stable to discharge home today. She will need to follow up with cardiology per their recommendations. She does not feel she needs home health or other assistance on discharge. Disposition: Discharged to home. Problems Addressed During This Admission: Principal Problem: Acute on chronic combined systolic and diastolic CHF (congestive heart failure ) ([facility]) Active Problems: PAF (paroxysmal atrial fibrillation) ([facility]) Nonrheumatic mitral valve regurgitation Chronic anemia Hyponatremia [employer] current use of antiarrhythmic drug Stage 4 chronic kidney disease ([facility]) Essential hypertension Obstructive sleep apnea Chronic respiratory failure with hypoxia ([facility]) Tricuspid regurgitation NICM (nonischemic cardiomyopathy) ([facility]) Chronic anticoagulation Resolved Problems: * No resolved hospital problems. * Code Status: Full Code Recommended Diet: Diet-Low Fat/Chol, 2 gm Na (Simply Healthy); 2000 ML FLUID Diet - Low Fat/Chol, 2gm Na (Simply Healthy) Activity/Restrictions: activity as tolerated Scheduled Follow Up Appointments/Studies ([facility]): Future Appointments Date Time Provider Department Center 10/22/2019 1:15 PM Inocente Oreilly MD [facility] Additional Discharge Follow Up: Dr. Carlos Castellano MD, primary care physician in 5-7 days. Heart Failure Checklist Most Recent Value GUIDELINES Ejection Fraction 40% or Less? Yes Is Patient on Beta Yonatan? Yes Is Patient on ACEI/ARB or ARNI? Yes Is Patient on Aldosterone Inhibitor? No Contraindications for No Aldosterone Inhibitor Ejection Fraction >35% ETIOLOGY Precipitant Causes of Heart Failure Progression of disease COMORBIDITIES Heart Failure Comorbidities Assessed and Managed (if present) Yes PROGRESSION Need for Additional Interventions Due to Progression of Heart Failure Addressed (if applicable) N/A NYHA CLASS NYHA Class III CARDIAC REHAB STATUS Was Cardiac Rehabilitation Ordered? Not appropriate, EF>35% PALLIATIVE CARE CONSIDERATIONS If Applicable, Palliative or Hospice Care Considered? N/A POST DISCHARGE SUPPORT Barriers to Optimal Care Transition and Limitations for Post Discharge Support A ddressed Yes CMS READMIT RISK SCORE Calculated CMS Heart Failure Readmission Risk Score is 32 % No Known Allergies Discharge Medications New Medications Indication(s) metoprolol succinate 25 MG 24 hr tablet Commonly known as: TOPROL-XL 25 mg, Oral, Nightly HTN HF Modified Medications Indication(s) furosemide 80 MG tablet Commonly known as: LASIX 80 mg, Oral, 2 times daily, Further refills per cardiology What changed: medication strength how much to take when to take this additional instructions HF lisinopriL 10 MG tablet Commonly known as: PRINIVIL,ZESTRIL 10 mg, Oral, 2 times daily What changed: medication strength how much to take when to take this HF Medications To Continue Indication(s) albuterol 1.25 mg/3 mL (0.042 %) nebulizer solution Commonly known as: ACCUNEB 1 ampule, Nebulization, Every 6 hours PRN Shortness of breath ALBUTEROL INHL 90 mL, Inhalation, 4 times daily Shortness of breath allopurinoL 100 MG tablet Commonly known as: ZYLOPRIM 100 mg, Oral, Daily gout amiodarone 200 MG tablet Commonly known as: CORDARONE 200 mg, Oral, Every morning Arrhythmia apixaban 5 mg tablet Commonly known as: ELIQUIS 5 mg, Oral, 2 times daily arrhythmia calcitrioL 0.25 MCG capsule Commonly known as: ROCALTROL 0.25 mcg, Oral, Every Mon-Wed-Fri Renal medication cholecalciferol (vitamin D3) 1,000 units(25 mcg) tablet 2,000 Units, Oral, Daily Vitamin clotrimazole-betamethasone cream Commonly known as: LOTRISONE Topical, 2 times daily Rash cyanocobalamin 1000 MCG tablet Commonly known as: VITAMIN B-12 1,000 mcg, Oral, Daily Vitamin ferrous sulfate 325 (65 FE) MG tablet 65 mg, Oral, Every 48 hours Anemia fluticasone propion-salmeteroL 250-50 mcg/dose DISKUS Commonly known as: ADVAIR 1 puff, Inhalation, 2 times daily Copd fluticasone propionate 50 mcg/actuation nasal spray Commonly known as: FLONASE 1 spray, Nasal, Daily Copd folic acid 1 MG tablet Commonly known as: FOLVITE 1 mg, Oral, Every morning Vitamin pantoprazole 40 MG tablet Commonly known as: PROTONIX 40 mg, Oral, Daily gerd potassium chloride 10 MEQ CR tablet Commonly known as: KLOR-CON 20 mEq, Oral, Daily Potassium therapeutic multivitamin tablet Commonly known as: THERAGRAN 1 tablet, Oral, Daily Vitamin tiotropium 18 mcg inhalation capsule Commonly known as: SPIRIVA 2.5 mcg, Inhalation, Daily copd turmeric curcumin 600 MG capsule Commonly known as: THERACURMIN CARDIOTAB 560 mg, Oral, Daily Supplement Vital Signs at the time of discharge: Blood Pressure: BP: 109/62 Pulse: Pulse: 71 Temperature: Temp: 36.6 C (97.8 F) Respirations: Resp: 16 Admission Weight: Weight: 100.8 kg (222 lb 4.8 oz) O2 Saturation: SpO2: 99 % Discharge Weight: Weight: 97.9 kg (215 lb 12.8 oz) BMI: Body mass index is 35.91 kg/m. Physical Exam Gen: Calm, cooperative, and in no distress CV: Regular rate and rhythm Resp: Clear to auscultation Abd: Soft, Non-tender, Non-distended obese Ext: Edema Skin: Warm dry Neuro: Alert, Oriented to person, place, date, and situation, No focal neurolog ic deficits noted Labs - Last 36 hours: Recent Results (from the past 36 hour(s)) Renal Panel Collection Time: 10/17/19 12:24 AM Result Value Ref Range Sodium 136 133 - 147 MEQ/L Potassium 5.3 3.5 - 5.3 MEQ/L Chloride 92 (L) 96 - 112 MEQ/L Carbon Dioxide 34 (H) 20 - 32 MEQ/L Anion Gap 10 5 - 17 Calcium 9.7 8.4 - 10.5 mg/dL Glucose 98 70 - 100 mg/dL Albumin 3.9 3.5 - 5.0 g/dL Blood Urea Nitrogen 53 (H) 7 - 26 mg/dL Creatinine 2.1 (H) 0.4 - 1.1 mg/dL eGFR Female AA 28 (L) 60 - 200 mL/min/1.73sq m eGFR Female Non-AA 23 (L) 60 - 200 mL/min/1.73sq m Phosphorus 4.1 2.5 - 4.5 mg/dL CBC and Diff (manual diff if necessary) Collection Time: 10/17/19 12:24 AM Result Value Ref Range WBC 6.51 4.00 - 11.00 TH/uL RBC 3.55 (L) 4.00 - 5.00 MIL/uL Hemoglobin 9.9 (L) 12.0 - 15.0 g/dL Hematocrit 32 (L) 36 - 45 % MCV 89 80 - 99 fL MCH 28 27 - 34 pg MCHC 31 (L) 32 - 36 % RDW 15.9 (H) 11.5 - 14.5 % Platelet Count 214 140 - 400 TH/uL MPV 11.0 9.4 - 12.3 fL Nucleated RBCs 0 0 - 0 /100 % Neutrophils 75 45 - 78 % %Lymphocytes 10 (L) 15 - 47 % %Monocytes 12 0 - 12 % %Eosinophils 2 0 - 7 % %Basophils 0 0 - 2 % % Imm Grans 0 0 - 1 % # Granulocytes 4.92 1.70 - 6.80 TH/uL # Lymphocytes 0.64 (L) 1.00 - 3.30 TH/uL # Monocytes 0.79 0.20 - 0.90 TH/uL # Eosinophils 0.14 0.00 - 0.40 TH/uL # Basophils 0.02 0.00 - 0.10 TH/uL Renal Panel Collection Time: 10/18/19 1:08 AM Result Value Ref Range Sodium 134 133 - 147 MEQ/L Potassium 4.9 3.5 - 5.3 MEQ/L Chloride 92 (L) 96 - 112 MEQ/L Carbon Dioxide 36 (H) 20 - 32 MEQ/L Anion Gap 6 5 - 17 Calcium 9.3 8.4 - 10.5 mg/dL Glucose 96 70 - 100 mg/dL Albumin 3.5 3.5 - 5.0 g/dL Blood Urea Nitrogen 56 (H) 7 - 26 mg/dL Creatinine 1.9 (H) 0.4 - 1.1 mg/dL eGFR Female AA 32 (L) 60 - 200 mL/min/1.73sq m eGFR Female Non-AA 26 (L) 60 - 200 mL/min/1.73sq m Phosphorus 4.3 2.5 - 4.5 mg/dL Imaging during this encounter: Xr Chest 2 Views (pa And Lateral) Result Date: 10/14/2019 1. Left pectoral dual-chamber transvenous pacer/ICD. 2. Asymmetric pulmonary edema. No consolidation. READING SITE: [facility] Cardiac Studies during this encounter: Echo Transesophageal With Doppler And Color Flow Result Date: 09/22/2019 1. Mild left ventricular dilatation with mildly reduced left ventricular sys tolic function, with an estimated ejection fraction of 40%. 2. Normal right ventricular size with mildly reduced systolic function. 3. Moderate to severe mitral regurgitation due to restriction motion of the posterior leaflet. 4. Moderate to severe tricuspid regurgitation. 5. Severe pulmonary hypertension, estimated PASP = 80 mmHg. Jonathan Garrido MD (Electronically Signed) Final Date: 22 Sep 2019 12:49 Amended: 22 Sep 2019 12:49 35 minutes were spent in the discharge of this patient performing the physical e xam, writing the discharge orders, and reviewing the patient's discharge plan of care and follow up information as noted above as well as other information as d ocumented in this summary note. COVID-19 Standard Documentation COVID-19 testing was NEGATIVE Current isolation level: No active isolations PPE Statement: Alexa Hays DO used Yellow precautions (Level 1 mask worn over level 3 mask and gloves). Alexa Hays DO [facility] Medicine Division . documented in this encounter Discharge Instructions * Appointments* Charu Zimmerman RN - 10/18/2019 8:[address] Inocente Oreilly [facility] Office * Discharge Instr - Other Orders* Renetta Gray RN - 10/14/2019 12:52 PM CDT HF reminders: 1. Call early at the onset of any new or worsening HF symptoms or change in you r usual status. 2. Do daily weight and BP and record. Bring log sheet to all cardiology appoin tments but call for changes as listed on HF zones card. 3. Monitor and report abdominal bloating especially if associated with decrease in appetite or decrease in urine. 4. Report dizzy, weak or faint sensation. Change positions slowly and avoid ex cessive heat environments (hot tubs, saunas, and be cautious in the bathroom). 5. Avoid all NSAIDs (Advil, Aleve, Motrin, Naprosyn, and Mobic). Tylenol is sa fe to use for contact heart team if ineffective. 6. COVID-19 precautions as per handout and discussion. 7. Avoid all alcohol. 8. Obtain a flu vaccine in the fall 2019. 9. Wear CPAP with all sleep including naps. Contact provider if intolerant. 10. Exercise and activity under the guidelines of cardiology or cardiac rehab ( CR) if symptoms occur stop and rest and notify medical team. 11. For severe symptoms call 911 or go to the ER * Education* Renetta Gray RN - 10/14/2019 12:35 PM CDT [facility] Heart Failure Education Note Name: Malathi Hurley Date: 10/14/2019 Time: 12:36 PM Patient seen for Heart Failure education: Chart reviewed and patient interviewed . Met with patient and introduced self and purpose of visit. Patient here as a referral [facility] Patient s tates familiar with heart failure diagnosis and able to state some symptoms show ing basic knowledge base. Patient states previous written information but accep ting of verbal review. Patient accepting of heart failure folder and content, l ow-sodium cookbook, summer precaution TIPP sheet, COVID-19 handout, and low-sodi Plan A Drink shopping was. 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 Patient retired in the last 6 months. Denies agency support but admits to DME of O2 at 3 L continuous throughout the day and CPAP machine to [facility]. Has a cane and a walker also Scale: Has a digital scale and does daily weights. States usual weight of 217. Encouraged to log daily and states does track weights. Reviewed triggers to ca ll and provided with tools. Assistance in Home: 2 adult children close within 12 miles or less and are suppo rtive. Spouse does travel and is gone for multiple days at a time but patient h as been independent. Ability to follow low salt diet: Patient has been told to follow low-sodium diet and states uses no added salt and drinks remains canned items. Reviewed other strategies and specific target of 650 mg sodium at a meal and max of 2000 mg/day . Patient does state previous fluid restriction while in the hospital but was n ever told to restrict fluids at home. States drinks 4 to 516.9 ounces of bottle d water daily but sometimes not. In addition may have tea and coffee. Reviewed to clarify fluid restriction per day and drink up to daily allowed volume as nima hannah has chronic kidney disease as well as heart failure. Reviewed what counts his fluids and how to track fluid throughout the day. Encouraged to take home 1 L graduated [facility] cup to assist with tracking. Prescriptions and medication set up: Patient states ability to obtain meds [facility] [address] in [facility]. States current on Lasix and lisinop ril states had been taken off metoprolol (due to kidney problems?) Reviewed pur pose and precautions with meds. Transportation to appointments: Patient and family members will drive The following services where consulted to assist with care: No additional consul ts at this time Recommended lifestyle changes and patient's response to recommendations: Brisa es: 1. Call early at the onset of any new or worsening HF symptoms or change in you r usual status. 2. Do daily weight and BP and record. Bring log sheet to all cardiology appoin tments but call for changes as listed on HF zones card. 3. Monitor and report abdominal bloating especially if associated with decrease in appetite or decrease in urine. 4. Report dizzy, weak or faint sensation. Change positions slowly and avoid ex cessive heat environments (hot tubs, saunas, and be cautious in the bathroom). 5. Avoid all NSAIDs (Advil, Aleve, Motrin, Naprosyn, and Mobic). Tylenol is sa fe to use for contact heart team if ineffective. 6. COVID-19 precautions as per handout and discussion. 7. Avoid all alcohol. 8. Obtain a flu vaccine in the fall 2019. 9. Wear CPAP with all sleep including naps. Contact provider if intolerant. 10. Exercise and activity under the guidelines of cardiology or cardiac rehab ( CR) if symptoms occur stop and rest and notify medical team. 11. For severe symptoms call 911 or go to the ER Follow up plan for heart failure management: Recommend 1 week follow-up appointm ent. Patient has pending follow-up with structural staff on October 22, 2019 at 1: [address] [facility] Education: Patient provided copy of Understanding Heart Failure Booklet that has written in formation on causes of heart failure, symptoms of heart failure and dehydration, weight monitoring, low sodium diet and fluid restrictions, activity guidelines, heart failure medications and tobacco cessation. Reviewed with patient the und erlying pathophysiology and cause of their heart failure. Patient able to verbal ize understanding. Additional handouts as above Risk Factors for Heart Failure: Reviewed the risk factors for heart failure and patients known risk factors f or heart failure. Discussed individual risk reduction opportunities. Symptoms of Heart Failure and dehydration: Reviewed s/s of heart failure- increase in weight of 2 pounds in a day or 5 poun ds in a week, increased edema or abdominal girth, increased dyspnea, orthopnea o r PND. Reviewed s/s of dehydration including decreased urine output or dark urin e, dizziness or extreme fatigue.Patient able to describe signs and symptoms of heart failure and dehydration as well as the importance of seeking medical help if they occur. Diet and Fluid Restriction: Reviewed reason for 2000 mg sodium diet and 2 liter fluid restriction recommenda tions. Provided information regarding sodium content of foods. Reviewed high so dium foods and how to avoid them or substitute better choices.Reviewed sodium co ntent of restaurant foods and how to limit sodium if eating out. Weight Monitoring: Reviewed with patient importance of daily weights. Instructed on weighing at the same time daily, upon rising, after using the bathroom. Instructed to call their provider if weight increases 2 pounds in one day or 5 pounds in a week. Reviewed that new dry weight will be the weight the morning after dismissal using home scale. Activity: Reviewed exercise and pacing guidelines with patient. Patient able to verbalize understanding of how to pace daily activities and how to begin a walking/exercis e program. States previous referral to [facility] cardiac rehab program but st opped due to COVID 19 issues. Pending return. Decreased activity in household since that time. Reviewed stress environments and stress warning symptoms and w hat to do should they occur Medications: Reviewed purpose and precautions related to heart failure medications. Reviewed to be sure to check discharge medication list closely and follow the discharge i nstructions. Asked patient to keep a current list of their medications with them at all times. Vaccines: Reviewed importance of staying current on pneumonia and flu vaccines. Patient states current on these through [facility] both pneumonia and flu were obtained a few months back. Reviewed importance of limiting alcohol, avoiding tobacco and illicit drugs. Nima hannah denies ever tobacco use smoking or otherwise. Does admit to secondhand sm jamie exposure. Patient admits to occasional alcohol use every month to month and a half may have a beer or bourbon and coke. Patient denies any drug use or chr onic pain issue. Uses Tylenol. Cautioned on NSAID avoidance. DMII: Denies BP: BP runs low to normal. Patient has arm blood pressure cuff. Reviewed goal BP and symptoms of hypotension and what to do. MAXIM: Positive diagnosis. Has been intolerant to mask. States son has purchased a new mask and will return to use. Equipment to [facility] D[facility]. States unsure of setting. Instructed to use for all sleep including planned naps. Patient had no further questions. Time spent in education : 45 minutes PPE Statement: Renetta Gray RN used Yellow precautions (Level 1 mask worn over le elida 3 mask and gloves). Electronically signed by Renetta Gray RN 10/14/2019 12:36 PM documented in this encounter Medications at Time of Discharge Start Date End Date Medication Sig Dispensed Refills albuterol (ACCUNEB) 1.25 Inhale 1 0 mg/3 mL (0.042 %) ampule via nebulizer solution nebulizer every 6 (six) hours as needed for wheezing. ALBUTEROL INHL Inhale 90 mL 0 4 (four) times a day. allopurinoL (ZYLOPRIM) Take 100 mg 0 100 MG tablet by mouth daily. amiodarone (CORDARONE) Take 200 mg 0 200 MG tablet by mouth every morning. apixaban (ELIQUIS) 5 mg Take 5 mg by 0 tablet mouth 2 (two) times a day. calcitrioL (ROCALTROL) Take 0.25 mcg 0 0.25 MCG capsule by mouth every Friday, Friday and Friday. cholecalciferol, vitamin Take 2,000 0 D3, 1,000 units(25 mcg) Units by tablet mouth daily. clotrimazole-betamethason Apply 0 e (LOTRISONE) cream topically 2 (two) times a day. cyanocobalamin (VITAMIN Take 1,000 0 B-12) 1000 MCG tablet mcg by mouth daily. ferrous sulfate 325 (65 Take 65 mg by 0 FE) MG tablet mouth every 48 hours. fluticasone Inhale 1 puff 0 propion-salmeteroL 2 (two) times (ADVAIR) 250-50 mcg/dose a day. DISKUS fluticasone propionate Use 1 spray 0 (FLONASE) 50 in each mcg/actuation nasal spray nostril daily. folic acid (FOLVITE) 1 MG Take 1 mg by 0 tablet mouth every morning. 10/18/2019 furosemide (LASIX) 80 MG Take 1 tablet 60 tablet 0 tablet (80 mg total) by mouth 2 (two) times a day. Further refills per cardiology 10/18/2019 lisinopriL Take 1 tablet 60 tablet 0 (PRINIVIL,ZESTRIL) 10 MG (10 mg total) tabletIndications: Acute by mouth 2 on chronic combined (two) times a systolic and diastolic day. CHF (congestive heart failure) ([facility]) 10/18/2019 metoprolol succinate Take 1 tablet 30 tablet 0 (TOPROL-XL) 25 MG 24 hr (25 mg total) tabletIndications: Acute by mouth on chronic combined nightly. systolic and diastolic CHF (congestive heart failure) ([facility]) pantoprazole (PROTONIX) Take 40 mg by 0 40 MG tablet mouth daily. potassium chloride Take 20 mEq 0 (KLOR-CON) 10 MEQ CR by mouth tablet daily. therapeutic multivitamin Take 1 tablet 0 (THERAGRAN) tablet by mouth daily. tiotropium (SPIRIVA) [address] Place 2.5 mcg 0 mcg inhalation capsule into inhaler and inhale daily. turmeric curcumin Take 560 mg 0 (THERACURMIN CARDIOTAB) by mouth 600 MG capsule daily. documented as of this encounter Progress Notes * Lorraine Lloyd, RN - 10/18/2019 3:30 PM CDT Assumed care of pt at 1300. Agree with AM assessment. Pt verbalized understandin g of d/c teaching: meds, f/u visits, s/s infection, weight monitoring, diet, act ivity and who to call in case of an emergency. IV and tele d/c'd. Pt wheeled out by NA, belongings at side. Pt in no acute distress. Pt given info for virtual v isits. * Sameer Milian MD - 10/17/2019 12:21 PM CDT [facility] Hospitalist - Progress Note Patient Name: Malathi Hurley Account No: [id number] Date of : 1950 Date of Admission: 10/13/2019 9:20 PM Subjective Follow up regarding CHF. No significant changes overnight. Patient sitting up in chair this morning, rep orts overall feeling very well. Symptoms since admission have essentially resol ingrid and her breathing feels back to baseline. Lower extremity swelling is also minimal at this point. Has been ambulating in the hallways well. Denies chest pain or abdominal pain. No nausea, vomiting, fevers, or chills. Did have some low blood pressure this morning but appeared to be asymptomatic. ROS A 4-point review of systems was completed and was negative except as noted above . Objective Vital Signs: Temp: 36.6 C (97.9 F) Pulse: 68 Resp: 25 BP: 104/62 SpO2: 99 % Weight: 98.9 kg (218 lb) I/O last 24 Hours: In: 240 [P.O.:240] Out: 2600 [Urine:2600] Physical Exam Gen: Calm, cooperative, and in no distress HEENT: Head: Normal, normocephalic, atraumatic. CV: Irregularly irregular rate and rhythm, systolic murmur unchanged. Resp: Clear to auscultation, Breath sounds are equal and symmetric Abd: Soft, Non-tender, Normal bowel sounds Ext: Trace edema. Skin: Warm, dry, skin intact with no obvious rashes or significant lesions Neuro: Awake and alert. No gross focal deficits. I have personally reviewed the patient's vital signs, laboratory/pathology/cultu re results (as indicated), imaging studies (results were not discussed with the performing provider), telemetry, diagnostic tests/studies (results were not disc ussed with the performing provider), current inpatient medications, ada accommodation consultant n otes and postal support employee notes with pertainent findings noted within the assessmen t/plan. I have personally reviewed the patient's past medical, surgical, family, or social history and there were no changes reported. I have personally spoken with the patient, the patient's family/friend and nursing staff regarding this p atient's case. Assessment/Plan Ms. Malathi Hurley is a 69 y.o. female who was admitted on 10/13/2019 with short ness of breath. Problems addressed with today's visit include: * Acute on chronic combined systolic and diastolic CHF (congestive heart failure ) ([facility]) -Responded well to IV diuresis and transitioned to p.o. per cardiology today. -Cardiology on board; appreciate recommendations. -Continue furosemide 80 mg twice daily on discharge. -Telemetry monitoring. -Daily weights and monitor I's and O's. -ICD in place. -Patient did have some asymptomatic low blood pressure again this morning. Woul d like to watch her for 1 more day but likely discharge home tomorrow. Hyponatremia -Sodium improved to 136 today. -Monitor with diuresis. Chronic anemia -Hemoglobin up to 9.9 today. -History of chronic anemia; iron studies consistent with severe iron deficiency. -Continue IV Venofer every 3 days. -Oral iron supplementation on discharge. Nonrheumatic mitral valve regurgitation -Cardiology following; patient has appointment scheduled later this coming week to discuss MitraClip. PAF (paroxysmal atrial fibrillation) ([facility]) -Continue amiodarone and metoprolol.. -Continue anticoagulation with apixaban. Chronic respiratory failure with hypoxia ([facility]) -Remains stable on 3 L oxygen which is her baseline requirement. -Continue home bronchodilators. Obstructive sleep apnea -Continue CPAP nightly. Essential hypertension -Continue metoprolol and lisinopril (per cardiology can switch lisinopril to 20 mg daily on discharge). Stage 4 chronic kidney disease (HCC) -Creatinine 2.1 today which is at baseline. -Renally dose all medications and avoid nephrotoxic agents. -Will monitor renal function closely with diuresis. See my orders for additional details regarding this patients treatment plan. Sunil ayala with patient's son via telephone at bedside during exam. Plan to watch her for 1 more day on new dose of oral diuretics and likely discharge home tomorrow if doing well. Room: [facility]/[place] [address] Diet: Diet-Low Fat/Chol, 2 gm Na (Simply Healthy); 2000 ML FLUID VTE Prevention: Appropriate VTE chemical treatment ordered. Appropriate VTE mec hanical treatment ordered. Code Status: Full Code Gtz Catheter: N/A Scheduled Meds: allopurinoL 100 mg Oral Daily amiodarone 200 mg Oral QAM apixaban 5 mg Oral BID calcitrioL 0.25 mcg Oral Q MWF cholecalciferol (vitamin D3) 2,000 Units Oral Daily cyanocobalamin 1,000 mcg Oral Daily ferrous sulfate 325 mg Oral Daily with breakfast fluticasone furoate-vilanteroL 1 puff Inhalation Daily fluticasone propionate 1 spray Each Nare Daily folic acid 1 mg Oral QAM furosemide 80 mg Oral BID iron sucrose 300 mg Intravenous Q3 Days lisinopriL 10 mg Oral BID metoprolol succinate 25 mg Oral Nightly therapeutic multivitamin 1 tablet Oral Daily pantoprazole 40 mg Oral Daily potassium chloride 20 mEq Oral Daily tiotropium 18 mcg Inhalation Daily Continuous Infusions: PRN Meds: acetaminophen OR acetaminophen, albuterol, albuterol, bisacodyL, docusate so dium, guaiFENesin, melatonin, polyethylene glycol, prochlorperazine, sodium chlo ride COVID-19 Standard Documentation COVID-19 testing was NEGATIVE. Current isolation level: No active isolations PPE Statement: Sameer Milian MD used Yellow precautions (Level 1 mask worn over level 3 mask and gloves). Sameer Milian MD [facility] Medicine Division . * Sameer Baird MD - 10/17/2019 7:50 AM CDT Cardiology COVID-19 Progress Note This hospital encounter may have been performed with modifications including navarro ited or no face to face contact as noted in physical exam below due to concerns about potential exposure to COVID-19 in an effort to minimize patient and provid er risk. Hospital Day: 4 Chief complaint: acute on chronic HF Clinical summary: Mrs. Hurley is a 69 year old female with PMH of an ICM s/p ICD in 2011, chron ic systolic and diastolic heart failure, severe mitral regurgitation, paroxysmal atrial fibrillation, chronic kidney disease, chronic respiratory failure on 2 L home oxygen, COPD, hypertension, and MAXIM. She has had multiple hospitalization recently for similar issues with exacerbation of her heart failure. She previously underwent ISABELA which demonstrated restricted posterior anterior le aflet with both severe posteriorly directed mitral regurgitation as well as mode rate to severe tricuspid regurgitation and EF of 40%. At that time since she wa s not on optimal medical therapy, it was planned once she is close to optimized then there will be a virtual visit arranged with advanced heart failure/corey nt radio reporter followed by a repeat visit with multidisciplinary valve clinic w ith a TTE to evaluate severity of mitral regurgitation. She was last seen in car diology clinic here on 09/22/2019. Her diltiazem was changed to metoprolol and s tarted on lisinopril. She was continued on Lasix 120 mg daily. However, she had a hospitalization in [facility] and the radio reporter there decreased dose of lisinopril and also dcr eased Lasix from 120 daily to 40 mg daily(appears to be due to low blood pressur es and renal function). Patient reported that she has not been feeling well sin ce the medications were changed. She has had progressive FERMIN and lower extremity swelling. She presented to local ER and was given IV lasix and then transferred her for further evaluation and care. Cardiology was consulted for CHF exacerbat ion. Dixon events during this stay: / Diuresis with Lasix 40 mg IV BID 10/13: started back low dose BB CHANGES IN THE PAST 24 HOURS: Clinical: No events overnight. Labs/tests/procedures: Sodium 136, potassium 5.3, creatinine 2.1 (1.9), WBC 6.5, hemoglobin 9.9, platel et 214 Net -3.5 L over the past 24 hours to make net -8.4 L over the course of the hosp italization. Tele: A paced ASSESSMENT & PLAN: Principal Problem: Acute on chronic combined systolic and diastolic CHF (congestive heart failure ) ([facility]) Active Problems: Tricuspid regurgitation NICM (nonischemic cardiomyopathy) ([facility]) Nonrheumatic mitral valve regurgitation Hyponatremia Stage 4 chronic kidney disease ([facility]) PAF (paroxysmal atrial fibrillation) ([facility]) Chronic anticoagulation Chronic antiarrhythmic therapy Obstructive sleep apnea Chronic anemia NICM with acute on chronic combined HFrEF and diastolic heart failure EF 40% on recent echo. Exacerbation likely due to progression of nature of her d isease and severe MR. Edema and crackles improving and Cr and BUN now trending u p. - Switch lasix to 80mg PO BID - Continue metoprolol succinate 25 daily, hold only for SBP <90 - Continue lisinopril 10mg BID (can be 20mg daily on discharge) Severe mitral regurgitation Moderate to severe tricuspid regurgitation -Appointment scheduled with Dr. Oreilly for MitraClip evaluation Paroxysmal atrial fibrillation on anticoagulation and antiarrhythmic therapy -Continue current doses of amiodarone and metoprolol. -continue Eliquis for anticoagulation Anemia -Iron studies showed Ferritin of 63, Iron of 46, and Tsat of 13%. -Primary team has ordered IV Venofer 300mg q 3 days for 3 doses for replacement CKD stage IV -Baseline creatinine around 2.0 -Creatinine on admission was 2.2 improved to 1.9 now back to 2.1 -Daily BMP MAXIM -continue CPAP A total of 45 of provider time was spent on retrieving results, reviewing result s, interpreting results and providing communication on results and recommendatio ns PPE Statement: Emerson Sebastian MD used Yellow precautions (Level 1 mask wor n over level 3 mask and gloves). STAFF ATTESTATION: I, Sameer Baird MD, have seen and examined this patient. I have reviewed an d edited the note as needed and agree with the information outlined by Dr. Sebastien franklin with the following additional remarks: BP 98/64 (BP Location: Right arm, Patient position: Sitting) | Pulse 75 | Temp 36.6 C (97.8 F) (Oral) | Resp 20 | Wt 98.9 kg (218 lb) | SpO2 97% | BMI 36.28 kg/m Feeling much better. Ambulating in the hallway with her usual home amount of 3 liters O2 NC. Clear lungs. Never had much better (trivial) Atrial paced rhythm Creat 2.1 (essentially baseline) Would discharge on lasix 80 bid. Video visit with Dr Oreilly later in week to review MitraClip for recurrent decomp syst HF on max tolerated med tx LVEF 40% and 3+ secondary MR. PA pressure 80 mmHg at the time of the ISABELA last month Sameer Baird MD I have performed an independent review of the following: Telemetry I have discussed the case with the following: Another healthcare provider Treatment goals, progress and next steps, as above, were discussed and mutually agreed upon with the patient/family. OBJECTIVE: Vitals: BP: 98/64 Pulse: 70 Temp: 36.6 C (97.8 F) Resp: 22 SpO2: 98 % Patient Vitals for the past 96 hrs: Weight 10/17/19 0314 98.9 kg (218 lb) 10/16/19 0317 99.8 kg (220 lb 1.6 oz) 10/15/19 0336 100.4 kg (221 lb 6.4 oz) 10/14/19 0338 100.8 kg (222 lb 4.8 oz) Intake/Output Summary (Last 24 hours) at 10/17/2019 0750 Last data filed at 10/17/2019 0314 Gross per 24 hour Intake 500 ml Output 3950 ml Net -3450 ml NANDO Risk Index for in-hospital mortality Age: 69 y.o. BP: 98/64 Pulse: 70 NANDO Risk Index Score: 33 <20 is low risk 20-30 is Intermediate >30 is high risk Physical Exam: Physical Exam Constitutional: She is oriented to person, place, and time. She appears well-dev eloped and well-nourished. Obese. HENT: Head: Normocephalic. Mouth/Throat: Oropharynx is clear and moist. Neck: Neck supple. Cardiovascular: Normal rate, regular rhythm and intact distal pulses. Murmur heard. Systolic murmur is present at the apex. Pulmonary/Chest: She has no wheezes. She has no rales. Slightly diminished bilaterally. Abdominal: There is no abdominal tenderness. Musculoskeletal: General: No edema. Neurological: She is alert and oriented to person, place, and time. Skin: Skin is warm and dry. Scheduled medications: allopurinoL 100 mg Oral Daily amiodarone 200 mg Oral QAM apixaban 5 mg Oral BID calcitrioL 0.25 mcg Oral Q MWF cholecalciferol (vitamin D3) 2,000 Units Oral Daily cyanocobalamin 1,000 mcg Oral Daily ferrous sulfate 325 mg Oral Daily with breakfast fluticasone furoate-vilanteroL 1 puff Inhalation Daily fluticasone propionate 1 spray Each Nare Daily folic acid 1 mg Oral QAM furosemide 40 mg Intravenous BID iron sucrose 300 mg Intravenous Q3 Days lisinopriL 10 mg Oral BID metoprolol succinate 25 mg Oral Nightly therapeutic multivitamin 1 tablet Oral Daily pantoprazole 40 mg Oral Daily potassium chloride 20 mEq Oral Daily tiotropium 18 mcg Inhalation Daily Infusion medications: Dixon labs: Recent Labs 10/16/19 0221 10/17/19 0024 WBC 6.21 6.51 HGB 9.1* 9.9* HCT 29* 32* PLT 196 214 Recent Labs 10/15/19 0053 10/16/19 0221 10/17/19 0024 NA 132* 134 136 K 4.6 4.7 5.3 CL 97 94* 92* CO2 31 34* 34* BUN 49* 51* 53* CREAT 2.2* 1.9* 2.1* GLU 87 98 98 MG 2.3 -- -- PHOS 3.6 3.7 4.1 Most Recent Result within the last 7 days Lab Units 10/17/19 0024 10/16/19 0221 10/15/19 0053 10/14/19 0121 ALKALINE PHOSPHATASE IU/L -- -- -- 98 PROTEIN TOTAL SERUM g/dL -- -- -- 6.8 ALBUMIN g/dL 3.9 3.5 3.5 3.6 ALANINE AMINOTRANSFERASE IU/L -- -- -- 45* ASPARTATE AMINOTRANSFERASE IU/L -- -- -- 37 Most Recent Result within the last 7 days Lab Units 10/14/19 0402 10/14/19 0121 10/13/19 2234 TROPONIN ng/mL 0.05* 0.04* 0.04* NTPROBNP pg/mL -- 7,470 -- Lab Results Component Value Date GLU 98 10/17/2019 GLU 98 10/16/2019 GLU 87 10/15/2019 * Sameer Milian MD - 10/16/2019 7:32 PM CDT [facility] Hospitalist - Progress Note Patient Name: Malathi Hurley Account No: [id number] Date of : 1950 Date of Admission: 10/13/2019 9:20 PM Subjective Follow up regarding CHF. No acute issues overnight. Patient seen this morning sitting up in chair eating breakfast. Overall she reported feeling well. Breathing feels much better quan n when she initially presented and she was able to ambulate with therapy the day prior. Legs feel much less swollen. Denies chest pain, palpitations, abdomina l pain, nausea, vomiting. No fevers or chills. ROS A 4-point review of systems was completed and was negative except as noted above . Objective Vital Signs: Temp: 36.6 C (97.9 F) Pulse: 68 Resp: 18 BP: 109/67 SpO2: 99 % Weight: 99.8 kg (220 lb 1.6 oz) I/O last 24 Hours: In: 500 [P.O.:500] Out: 2600 [Urine:2600] Physical Exam Gen: Calm, cooperative, and in no distress HEENT: Head: Normal, normocephalic, atraumatic. CV: Irregular regular rate and rhythm, systolic murmur. Resp: Diminished crackles in the bases but otherwise clear. Abd: Soft, Non-tender, Normal bowel sounds Ext: Trace lower extremity edema. Skin: Warm, dry. Neuro: Alert, Oriented to person, place, date, and situation I have personally reviewed the patient's vital signs, laboratory/pathology/cultu re results (as indicated), imaging studies (results were not discussed with the performing provider), telemetry, diagnostic tests/studies (results were not disc ussed with the performing provider), current inpatient medications, ada accommodation consultant n otes and postal support employee notes with pertainent findings noted within the assessmen t/plan. I have personally reviewed the patient's past medical, surgical, family, or social history and there were no changes reported. I have personally spoken with the patient, the patient's family/friend and nursing staff regarding this p atient's case. Assessment/Plan Ms. Malathi Hurley is a 69 y.o. female who was admitted on 10/13/2019 with short ness of breath. Problems addressed with today's visit include: * Acute on chronic combined systolic and diastolic CHF (congestive heart failure ) (HCC) -Responding well to diuresis, symptomatically feels much better and edema improv ed. -Cardiology on board; appreciate recommendations. -Continue furosemide 40 mg IV twice daily today and likely transition to oral to lozano. -Telemetry monitoring. -Daily weights and monitor I's and O's. -ICD in place. -Depending on progress, may be able to discharge home in the next 1 to 2 days. Hyponatremia -Improved; sodium 134 today. -Monitor with diuresis. Chronic anemia -Hemoglobin 9.1. -History of chronic anemia; iron studies consistent with severe iron deficiency. -Continue IV Venofer every 3 days. -Oral iron supplementation on discharge. Nonrheumatic mitral valve regurgitation -Cardiology following; patient has appointment scheduled later this coming week to discuss MitraClip. PAF (paroxysmal atrial fibrillation) ([facility]) -Continue amiodarone and metoprolol.. -Continue anticoagulation with apixaban. Chronic respiratory failure with hypoxia ([facility]) -Currently stable on 3 L oxygen which is her baseline requirement. -Continue home bronchodilators. Obstructive sleep apnea -Continue CPAP nightly. Stage 4 chronic kidney disease ([facility]) -Creatinine down to 1.9 which is at baseline. -Renally dose all medications and avoid nephrotoxic agents. -Will monitor renal function closely with diuresis. Essential hypertension -Continue home medications, lisinopril See my orders for additional details regarding this patients treatment plan. Room: [facility]/[place] [address] Diet: Diet-Low Fat/Chol, 2 gm Na (Simply Healthy); 2000 ML FLUID VTE Prevention: Appropriate VTE chemical treatment ordered. Appropriate VTE mec hanical treatment ordered. Code Status: Full Code Gtz Catheter: N/A Scheduled Meds: allopurinoL 100 mg Oral Daily amiodarone 200 mg Oral QAM apixaban 5 mg Oral BID calcitrioL 0.25 mcg Oral Q MWF cholecalciferol (vitamin D3) 2,000 Units Oral Daily cyanocobalamin 1,000 mcg Oral Daily ferrous sulfate 325 mg Oral Daily with breakfast fluticasone furoate-vilanteroL 1 puff Inhalation Daily fluticasone propionate 1 spray Each Nare Daily folic acid 1 mg Oral QAM furosemide 40 mg Intravenous BID iron sucrose 300 mg Intravenous Q3 Days lisinopriL 10 mg Oral BID metoprolol succinate 25 mg Oral Nightly therapeutic multivitamin 1 tablet Oral Daily pantoprazole 40 mg Oral Daily potassium chloride 20 mEq Oral Daily tiotropium 18 mcg Inhalation Daily Continuous Infusions: PRN Meds: acetaminophen OR acetaminophen, albuterol, albuterol, bisacodyL, docusate so dium, guaiFENesin, melatonin, polyethylene glycol, prochlorperazine, sodium chlo ride COVID-19 Standard Documentation COVID-19 testing was NEGATIVE. Current isolation level: No active isolations PPE Statement: Sameer Milian MD used Yellow precautions (Level 1 mask worn over level 3 mask and gloves). Sameer Milian MD [facility] Medicine Division . * Nupur Garcia - 10/16/2019 11:20 AM CDT Patient completed ambulation in hallway with workplace rehabilitation officer/mobility team unde r direction of nursing staff. Proper PPE utilized for activity. * Sameer Baird MD - 10/16/2019 7:40 AM CDT Cardiology COVID-19 Progress Note This hospital encounter may have been performed with modifications including navarro ited or no face to face contact as noted in physical exam below due to concerns about potential exposure to COVID-19 in an effort to minimize patient and provid er risk. Hospital Day: 3 Chief complaint: acute on chronic HF Clinical summary: Mrs. Hurley is a 69 year old female with PMH of an ICM s/p ICD in 2011, chron ic systolic and diastolic heart failure, severe mitral regurgitation, paroxysmal atrial fibrillation, chronic kidney disease, chronic respiratory failure on 2 L home oxygen, COPD, hypertension, and MAXIM. She has had multiple hospitalization recently for similar issues with exacerbation of her heart failure. She previously underwent ISABELA which demonstrated restricted posterior anterior le aflet with both severe posteriorly directed mitral regurgitation as well as mode rate to severe tricuspid regurgitation and EF of 40%. At that time since she wa s not on optimal medical therapy, it was planned once she is close to optimized then there will be a virtual visit arranged with advanced heart failure/transpla nt radio reporter followed by a repeat visit with multidisciplinary valve clinic w ith a TTE to evaluate severity of mitral regurgitation. She was last seen in car diology clinic here on 09/22/2019. Her diltiazem was changed to metoprolol and s tarted on lisinopril. She was continued on Lasix 120 mg daily. However, [facility] and the radio reporter there decreased dose of lisinopril and also dcr eased Lasix from 120 daily to 40 mg daily(appears to be due to low blood pressur es and renal function). Patient reported that she has not been feeling well sin ce the medications were changed. She has had progressive FERMIN and lower extremity swelling. She presented to local ER and was given IV lasix and then transferred her for further evaluation and care. Cardiology was consulted for CHF exacerbat ion. Dixon events during this stay: 10/12 Diuresis with Lasix 40 mg IV BID 10/13: started back low dose BB CHANGES IN THE PAST 24 HOURS: Clinical: Today she is feeling better and swelling continues to improve. Urine output net -1700 yesterday. Net neg 5L this admission. Labs/tests/procedures: Creatinine improved to 1.9 from 2.2 Na stable at 134 Mg stable at 2.3 Potassium stable at 4.7 Tele: A paced, run of V tach at 2200 ASSESSMENT & PLAN: Principal Problem: Acute on chronic combined systolic and diastolic CHF (congestive heart failure ) ([facility]) Active Problems: Tricuspid regurgitation NICM (nonischemic cardiomyopathy) ([facility]) Nonrheumatic mitral valve regurgitation Hyponatremia Stage 4 chronic kidney disease ([facility]) PAF (paroxysmal atrial fibrillation) ([facility]) Chronic anticoagulation Chronic antiarrhythmic therapy Obstructive sleep apnea Chronic anemia NICM with acute on chronic combined HFrEF and diastolic heart failure -Exacerbation likely due to a recent decrease in Lasix at home -EF 40% on recent echo -Daily weights, I's and O's, daily renal panels -Mild contraction alkalosis today however creatinine improved -Edema and crackles improving -Continue with Lasix 40 IV twice daily -Continue metoprolol succinate 25 daily -increase lisinopril to 10mg BID Severe mitral regurgitation Moderate to severe tricuspid regurgitation -Appointment scheduled with Dr. Oreilly, considering MitraClip Paroxysmal atrial fibrillation on anticoagulation and antiarrhythmic therapy -Continue current doses of amiodarone and metoprolol. -continue Eliquis for anticoagulation Anemia -Iron studies showed Ferritin of 63, Iron of 46, and Tsat of 13%. -Primary team has ordered IV Venofer 300mg q 3 days for 3 doses for replacement CKD stage IV -Baseline creatinine around 2.0 -Creatinine on admission was 2.2, now improved to 1.9 -Daily BMP MAXIM -continue CPAP I have performed an independent review of the following: Telemetry I have discussed the case with the following: Another healthcare provider A total of 45 of provider time was spent on retrieving results, reviewing result s, interpreting results and providing communication on results and recommendatio ns PPE Statement: Britt Andino MD used Yellow precautions (Level 1 mask worn over level 3 mask and gloves). STAFF ATTESTATION: I, Sameer Baird MD, have seen and examined this patient. I have reviewed an d edited the note as needed and agree with the information outlined by Dr. 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 On home O2 - 3 liters. Recurrent HF admission. EF 40% with severe MR and 3+ TR Responding well to meds. She rarely develops edema - symptoms include worsening FERMIN and abd bloating. Feel better. CKD III (creat 2.2 to 1.9) Rare sx of orthostasis. Clear lungs. Apical blowing MR. Trivial edema. Still with decomp HF Increase lisinopril to 10 bid. Continue IV lasix for 1 more day (likely). Video visit with Dr Oreilly later in the week for elective MitraClip eval. Sameer Baird MD I have performed an independent review of the following: Telemetry - alternating between AP and SWIM INSTRUCTOR Treatment goals, progress and next steps, as above, were discussed and mutually agreed upon with the patient/family. OBJECTIVE: Vitals: BP: 92/41 Pulse: 68 Temp: 36.7 C (98.1 F) Resp: 16 SpO2: 97 % Patient Vitals for the past 96 hrs: Weight 10/16/19 0317 99.8 kg (220 lb 1.6 oz) 10/15/19 0336 100.4 kg (221 lb 6.4 oz) 10/14/19 0338 100.8 kg (222 lb 4.8 oz) Intake/Output Summary (Last 24 hours) at 10/16/2019 0740 Last data filed at 10/15/20192036 Gross per 24 hour Intake 600 ml Output 2350 ml Net -1750 ml NANDO Risk Index for in-hospital mortality Age: 69 y.o. BP: 92/41 Pulse: 68 NANDO Risk Index Score: 34 <20 is low risk 20-30 is Intermediate >30 is high risk Physical Exam: Physical Exam Constitutional: She is oriented to person, place, and time. She appears well-dev eloped and well-nourished. Obese. HENT: Head: Normocephalic. Mouth/Throat: Oropharynx is clear and moist. Neck: Neck supple. Cardiovascular: Normal rate, regular rhythm and intact distal pulses. Murmur heard. Systolic murmur is present at the apex. Pulmonary/Chest: She has no wheezes. She has no rales. Slightly diminished bilaterally. Abdominal: There is no abdominal tenderness. Musculoskeletal: General: No edema. Neurological: She is alert and oriented to person, place, and time. Skin: Skin is warm and dry. Scheduled medications: allopurinoL 100 mg Oral Daily amiodarone 200 mg Oral QAM apixaban 5 mg Oral BID calcitrioL 0.25 mcg Oral Q MWF cholecalciferol (vitamin D3) 2,000 Units Oral Daily cyanocobalamin 1,000 mcg Oral Daily ferrous sulfate 325 mg Oral Daily with breakfast fluticasone furoate-vilanteroL 1 puff Inhalation Daily fluticasone propionate 1 spray Each Nare Daily folic acid 1 mg Oral QAM furosemide 40 mg Intravenous BID iron sucrose 300 mg Intravenous Q3 Days lisinopriL 10 mg Oral Daily metoprolol succinate 25 mg Oral Nightly therapeutic multivitamin 1 tablet Oral Daily pantoprazole 40 mg Oral Daily potassium chloride 20 mEq Oral Daily tiotropium 18 mcg Inhalation Daily Infusion medications: Dixon labs: Recent Labs 10/14/19 0121 10/16/19 0221 WBC 4.95 6.21 HGB 8.5* 9.1* HCT 27* 29* PLT 171 196 Recent Labs 10/14/19 0121 10/15/19 0053 10/16/19 0221 NA 133 132* 134 K 4.8 4.6 4.7 CL 98 97 94* CO2 29 31 34* BUN 46* 49* 51* CREAT 2.2* 2.2* 1.9* GLU 89 87 98 MG 2.4 2.3 -- PHOS -- 3.6 3.7 Most Recent Result within the last 7 days Lab Units 10/16/19 0221 10/15/19 0053 10/14/19 0121 ALKALINE PHOSPHATASE IU/L -- -- 98 PROTEIN TOTAL SERUM g/dL -- -- 6.8 ALBUMIN g/dL 3.5 3.5 3.6 ALANINE AMINOTRANSFERASE IU/L -- -- 45* ASPARTATE AMINOTRANSFERASE IU/L -- -- 37 Most Recent Result within the last 7 days Lab Units 10/14/19 0402 10/14/19 0121 10/13/19 2234 TROPONIN ng/mL 0.05* 0.04* 0.04* NTPROBNP pg/mL -- 7,470 -- Lab Results Component Value Date GLU 98 10/16/2019 GLU 87 10/15/2019 GLU 89 10/14/2019 * Nupur Garcia - 10/15/2019 3:50 PM CDT Patient completed ambulation in hallway with workplace rehabilitation officer/mobility team unde r direction of nursing staff. Proper PPE utilized for activity. * Carey Cervantes MD - 10/15/2019 2:57 PM CDT [facility] Hospitalist - Progress Note Patient Name: Malathi Hurley Account No: [id number] Date of : 1950 Date of Admission: 10/13/2019 9:20 PM Subjective Follow up regarding heart failure exacerbation MIldly improved SOA. Able to ambulate some in room yesterday but remains easily winded with exertion. Still swollen in legs and belly. ROS A 4-point review of systems was completed and was negative except as noted above . Objective Vital Signs: Temp: 36.6 C (97.9 F) Pulse: 69 Resp: 16 BP: 102/51 SpO2: 100 % Weight: 100.4 kg (221 lb 6.4 oz) I/O last 24 Hours: In: 998.2 [P.O.:900; IV Piggyback:98.2] Out: 2300 [Urine:2300] Physical Exam Gen: Awake, alert, in NAD Eyes: EOMI, nml conjunctiva ENT: MMM, oropharynx clear CV: +JVD, Irregular rate and rhythm, murmur, no gallop, intact distal pulses Resp: Crackles at bilateral lung bases Abd: Soft, NT, mild distention with fluid Ext: 1-2+ pitting edema Skin: No rash, pale Neuro: A&Ox3, CN II-XII grossly intact I have personally reviewed the patient's vital signs, laboratory/pathology/cultu re results (as indicated), current inpatient medications, ada accommodation consultant notes and s upport staff notes with pertainent findings noted within the assessment/plan. I have personally reviewed the patient's past medical, surgical, family, or social history and there were no changes reported. I have personally spoken with the p atjesus regarding this patient's case. Assessment/Plan Ms. Malathi Hurley is a 69 y.o. female who was admitted on 10/13/2019 with short ness of breath. Problems addressed with today's visit include: * Acute on chronic combined systolic and diastolic CHF (congestive heart failure ) (HCC) Slowly improving with diuresis -IV Lasix. Telemetry. Strict Is/Os -Daily renal panel -Patient has ICD in place. -Cardiology consulted and assisting in management Hyponatremia Likely hypervolemic hyponatremia Diuresis Nonrheumatic mitral valve regurgitation -Cardiology consulted PAF (paroxysmal atrial fibrillation) ([facility]) -Patient has a history of atrial fibrillation, patient is on amiodarone 200 mg o nce a day. --Patient on anticoagulation with Eliquis Stage 4 chronic kidney disease (HCC) -Monitor renal function closely while titration meds and diuresis Chronic anemia -Patient seems to has a history of chronic anemia, she reported that her previou s hemoglobin in about a month ago was 8.2. -Iron studies - severe iron deficiency -IV Venofer 300 mg q3d Chronic respiratory failure with hypoxia (HCC) -Patient on 3 L of oxygen at home -Continue bronchodilator Obstructive sleep apnea -Patient has a CPAP at home -Continue CPAP qhs Essential hypertension -Continue home medications, lisinopril See my orders for additional details regarding this patients treatment plan. Room: [facility]/[place] [address] Diet: Diet-Low Fat/Chol, 2 gm Na (Simply Healthy); 2000 ML FLUID VTE Prevention: Appropriate VTE chemical treatment ordered. Appropriate VTE mec hanical treatment ordered. Code Status: Full Code Gtz Catheter: N/A Scheduled Meds: allopurinoL 100 mg Oral Daily amiodarone 200 mg Oral QAM apixaban 5 mg Oral BID calcitrioL 0.25 mcg Oral Q MWF cholecalciferol (vitamin D3) 2,000 Units Oral Daily cyanocobalamin 1,000 mcg Oral Daily ferrous sulfate 325 mg Oral Daily with breakfast fluticasone furoate-vilanteroL 1 puff Inhalation Daily fluticasone propionate 1 spray Each Nare Daily folic acid 1 mg Oral QAM furosemide 40 mg Intravenous BID iron sucrose 300 mg Intravenous Q3 Days lisinopriL 10 mg Oral Daily metoprolol succinate 25 mg Oral Nightly therapeutic multivitamin 1 tablet Oral Daily pantoprazole 40 mg Oral Daily potassium chloride 20 mEq Oral Daily tiotropium 18 mcg Inhalation Daily Continuous Infusions: PRN Meds: acetaminophen OR acetaminophen, albuterol, albuterol, bisacodyL, docusate so dium, guaiFENesin, melatonin, polyethylene glycol, prochlorperazine, sodium chlo ride COVID-19 Standard Documentation Malathi Hurley is clinically low risk for COVID-19. COVID-19 testing was NEGAT SOLANGE. Current isolation level: No active isolations PPE Statement: Carey Cervantes MD used Yellow precautions (Level 1 mask worn ov er level 3 mask and gloves). Carey Cervantes MD [facility] Medicine Division . * Dolores Eli RN ACNP - 10/15/2019 11:24 AM CDT Cardiology COVID-19 Progress Note This hospital encounter may have been performed with modifications including navarro ited or no face to face contact as noted in physical exam below due to concerns about potential exposure to COVID-19 in an effort to minimize patient and provid er risk. Hospital Day: 2 Chief complaint: acute on chronic HF Clinical summary: Mrs. Hurlye is a 69 year old female with PMH of an ICM s/p ICD in 2011, chron ic systolic and diastolic heart failure, severe mitral regurgitation, paroxysmal atrial fibrillation, chronic kidney disease, chronic respiratory failure on 2 L home oxygen, COPD, hypertension, and MAXIM. She has had multiple hospitalization recently for similar issues with exacerbation of her heart failure. She previously underwent ISABELA which demonstrated restricted posterior anterior le aflet with both severe posteriorly directed mitral regurgitation as well as mode rate to severe tricuspid regurgitation and EF of 40%. At that time since she wa s not on optimal medical therapy, it was planned once she is close to optimized then there will be a virtual visit arranged with advanced heart failure/transpla nt radio reporter followed by a repeat visit with multidisciplinary valve clinic w ith a TTE to evaluate severity of mitral regurgitation. She was last seen in car diology clinic here on 09/22/2019. Her diltiazem was changed to metoprolol and s tarted on lisinopril. She was continued on Lasix 120 mg daily. However, [facility] and the radio reporter there decreased dose of lisinopril and also dcr eased Lasix from 120 daily to 40 mg daily(appears to be due to low blood pressur es and renal function). Patient reported that she has not been feeling well sin ce the medications were changed. She has had progressive FERMIN and lower extremity swelling. She presented to local ER and was given IV lasix and then transferred her for further evaluation and care. Cardiology was consulted for CHF exacerbat ion. Dixon events during this stay: 10/12 Diuresis with Lasix 40 mg IV BID 10/13: Decreased ACEI and started back low dose BB CHANGES IN THE PAST 24 HOURS: Clinical: Today she is feeling better. Feels like swelling is improving. FERMIN is better and she can walk from the recliner to the door of her room before she gets "winded" . Fatigue is unchanged. She is wearing CPAP. Denies any CP, orthopnea, PND, dizz iness, lightheadedness, palpitations, or syncope. Labs/tests/procedures: Creatinine stable at 2.2 Na is overall stable at 132 Mg is stable at 2.3 Potassium is stable at 4.6 EKG/Telemetry: AP-VS with HR 70-71 and Telemetry was personally reviewed ASSESSMENT & PLAN: Principal Problem: Acute on chronic combined systolic and diastolic CHF (congestive heart failure ) ([facility]) Active Problems: Tricuspid regurgitation NICM (nonischemic cardiomyopathy) ([facility]) Nonrheumatic mitral valve regurgitation Hyponatremia Stage 4 chronic kidney disease ([facility]) PAF (paroxysmal atrial fibrillation) ([facility]) Chronic anticoagulation Chronic antiarrhythmic therapy Obstructive sleep apnea Chronic anemia Impression/Plan: 1. NICMP with acute on chronic combined HFrEF and diastolic heart failure 2. Hyponatremia 1. Acute exacerbation related to decrease in oral diuretics in the setting of se heather MR and mod/severe TR. 2. Recent ECHO(ISABELA) : Decreased EF of 40%, severe MR and moderate to severe TR w ith severely elevated PAP of 80 mm 3. NYHA class IIIb ACC/AHA stage C Clinically hypervolemic and is improving. She is 1.8L net negative today. Will c ontinue with 40mg of IVP lasix BID. Most likely will need several more days of IV diuretics. Will reassess renal function and volume status in AM. Once she is transitioned to oral diuretics would recommend to use torsemide inst ead of lasix. In regards to HF medications, have little room for optimization given renal func tion and hypotension. Will continue current doses of metoprolol and lisinopril. Will move BB to night time which may allow us the ability to up-titrate doses. G iven renal function and EF of 40% would not use MRA. Standard HF care: 2000mg NA & Fluid restriction of 2000cc/24 hours, Daily weights, Strict I/O, and orthostatics Na is low at 132 due to hypervolemia. Patient is asymptomatic and will continue with diuresis and monitor Lytes are WNL. K of 4.6. and Mg is 2.3 BMP and Mg level in AM Given multiple hospitalization due to HF exacerbations would consider CardioMEMs as outpatient. 3. Mitral regurgitation - nonrheumatic severe 4. Tricuspid regurgitation -nonrheumatic mod/severe 1. Continue with medical therapy as stated above 2. Once on optimal HF therapy, then will repeat ISABELA for reassessment of severity of MR to decide about MitraClip. 3. Already has planned clinic f/u with Dr. Oreilly. 5. Paroxysmal atrial fibrillation on anticoagulation and antiarrhythmic therapy 1. Currently AP with VS 2. Continue current doses of amiodarone and metoprolol. 3. [id number] score 4 and will continue Eliquis for anticoagulation for CVA pr otection 6. Anemia 1. Chronic MADY and ACD 2. Hgb on admission was 8.5 3. Iron studies showed Ferritin of 63, Iron of 46, and Tsat of 13%. 4. Primary team has ordered IV Venofer 300mg q 3 days for 3 doses for replacemen t 5. Would recommend repeat iron studies in 3 months 6. No active bleeding noted 7. CBC in AM 7. CKD stage IV 1. Baseline creatinine around 2.0 with GFR in the 20's 2. Creatinine on admission was 2.2 3. Creatinine stable at 2.2 4. Daily BMP 8. MAXIM 1. Wearing CPAP during period of sleep 2. Son states that they have gotten her CPAP equipment fixed athome I have performed an independent review of the following: Telemetry I have discussed the case with the following: Family Another healthcare provider Discussed with patient's son via phone and with card iology attending Dr. Lord A total of 40 of provider time was spent on retrieving results, reviewing result s, interpreting results and providing communication on results and recommendatio ns PPE Statement: Dolores Eli, RN ACNP used Yellow precautions (Level 1 mask wo rn over level 3 mask and gloves). OBJECTIVE: Vitals: BP: 111/52 Pulse: 72 Temp: 36.4 C (97.6 F) Resp: 18 SpO2: 98 % Patient Vitals for the past 96 hrs: Weight 10/15/19 0336 100.4 kg (221 lb 6.4 oz) 10/14/19 0338 100.8 kg (222 lb 4.8 oz) Intake/Output Summary (Last 24 hours) at 10/15/2019 1142 Last data filed at 10/15/2019 1132 Gross per 24 hour Intake 1373.21 ml Output 4350 ml Net -2976.79 ml NANDO Risk Index for in-hospital mortality Age: 69 y.o. BP: 111/52 Pulse: 72 NANDO Risk Index Score: 30 <20 is low risk 20-30 is Intermediate >30 is high risk Physical Exam: Physical Exam Constitutional: She is oriented to person, place, and time. She appears well-dev eloped and well-nourished. HENT: Head: Normocephalic. Neck: JVD (14cm) present. Cardiovascular: Normal rate, regular rhythm and intact distal pulses. Murmur heard. Holosystolic murmur is present with a grade of 3/6 at the apex. Pulmonary/Chest: Effort normal and breath sounds normal. No respiratory distress . Abdominal: She exhibits distension (semi-taut with tympany elicited throughout w ith percussion). There is no abdominal tenderness. Musculoskeletal: General: Edema (trace PE in BLE) present. Neurological: She is alert and oriented to person, place, and time. No focal deficit Skin: Skin is warm and dry. Psychiatric: She has a normal mood and affect. Her behavior is normal. Scheduled medications: allopurinoL 100 mg Oral Daily amiodarone 200 mg Oral QAM apixaban 5 mg Oral BID calcitrioL 0.25 mcg Oral Q MWF cholecalciferol (vitamin D3) 2,000 Units Oral Daily cyanocobalamin 1,000 mcg Oral Daily ferrous sulfate 325 mg Oral Daily with breakfast fluticasone furoate-vilanteroL 1 puff Inhalation Daily fluticasone propionate 1 spray Each Nare Daily folic acid 1 mg Oral QAM furosemide 40 mg Intravenous BID iron sucrose 300 mg Intravenous Q3 Days lisinopriL 10 mg Oral Daily metoprolol succinate 25 mg Oral Nightly therapeutic multivitamin 1 tablet Oral Daily pantoprazole 40 mg Oral Daily potassium chloride 20 mEq Oral Daily tiotropium 18 mcg Inhalation Daily Infusion medications: Dixon labs: Recent Labs 10/14/19 0121 WBC 4.95 HGB 8.5* HCT 27* PLT 171 Recent Labs 10/14/19 0121 10/15/19 0053 NA 133 132* K 4.8 4.6 CL 98 97 CO2 29 31 BUN 46* 49* CREAT 2.2* 2.2* GLU 89 87 MG 2.4 2.3 PHOS -- 3.6 Most Recent Result within the last 7 days Lab Units 10/15/19 0053 10/14/19 0121 ALKALINE PHOSPHATASE IU/L -- 98 PROTEIN TOTAL SERUM g/dL -- 6.8 ALBUMIN g/dL 3.5 3.6 ALANINE AMINOTRANSFERASE IU/L -- 45* ASPARTATE AMINOTRANSFERASE IU/L -- 37 Most Recent Result within the last 7 days Lab Units 10/14/19 0402 10/14/19 0121 10/13/19 2234 TROPONIN ng/mL 0.05* 0.04* 0.04* NTPROBNP pg/mL -- 7,470 -- Lab Results Component Value Date GLU 87 10/15/2019 GLU 89 10/14/2019 * Nupur Garcia - 10/14/2019 3:45 PM CDT Patient completed ambulation in hallway with workplace rehabilitation officer/mobility team unde r direction of nursing staff. Proper PPE utilized for activity. * Carey Cervantes MD - 10/14/2019 3:01 PM CDT [facility] Hospitalist - Progress Note Patient Name: Malathi Hurley Account No: [id number] Date of : 1950 Date of Admission: 10/13/2019 9:20 PM Subjective Follow up regarding acute on chronic heart failure Patient still is SOA with some swelling. No chest pain at rest. ROS A 4-point review of systems was completed and was negative except as noted above . Objective Vital Signs: Temp: 36.6 C (97.8 F) Pulse: 71 Resp: 18 BP: 110/67 SpO2: 97 % Weight: 100.8 kg (222 lb 4.8 oz) I/O last 24 Hours: In: 690 [P.O.:690] Out: 1950 [Urine:1950] Physical Exam Gen: Awake, alert, in NAD Eyes: EOMI, nml conjunctiva ENT: MMM, oropharynx clear CV: Irregular rate and rhythm Resp: Crackles at bilateral lung bases, mild tachypnea Abd: Soft, NT, ND, +BS Ext: 1+ pitting edema Skin: No rash, pale Neuro: A&Ox3, CN II-XII grossly intact I have personally reviewed the patient's vital signs, laboratory/pathology/cultu re results (as indicated), current inpatient medications, ada accommodation consultant notes and s upport staff notes with pertainent findings noted within the assessment/plan. I have personally reviewed the patient's past medical, surgical, family, or social history and there were no changes reported. I have personally spoken with the p atient regarding this patient's case. Assessment/Plan Ms. Malathi Hurley is a 69 y.o. female who was admitted on 10/13/2019 with heart failure. Problems addressed with today's visit include: * Acute on chronic combined systolic and diastolic CHF (congestive heart failure ) ([facility]) -IV Lasix. Telemetry. Strict Is/Os -Daily renal panel -Patient has ICD in place. -Cardiology consulted and assisting in management Nonrheumatic mitral valve regurgitation -Cardiology consulted -Consider mitraclip in future PAF (paroxysmal atrial fibrillation) ([facility]) -Patient has a history of atrial fibrillation, patient is on amiodarone 200 mg o nce a day. --Patient on anticoagulation with Eliquis CKD (chronic kidney disease) -Monitor renal function closely while titration meds and diuresis Chronic anemia -Patient seems to has a history of chronic anemia, she reported that her previou s hemoglobin in about a month ago was 8.2. -Iron studies - severe iron deficiency -IV Venofer Chronic respiratory failure with hypoxia ([facility]) -Patient on 3 L of oxygen at home -Continue bronchodilator Obstructive sleep apnea -Patient has a CPAP at home but this is not using it as she doesn't tolerate mas k Essential hypertension -Continue home medications, lisinopril See my orders for additional details regarding this patients treatment plan. Room: [place] [address] Diet: Diet-Low Fat/Chol, 2 gm Na (Simply Healthy); 2000 ML FLUID VTE Prevention: Appropriate VTE chemical treatment ordered. Appropriate VTE mec hanical treatment ordered. Code Status: Full Code Gtz Catheter: N/A Scheduled Meds: allopurinoL 100 mg Oral Daily amiodarone 200 mg Oral QAM apixaban 5 mg Oral BID [START ON 10/15/2019] calcitrioL 0.25 mcg Oral Q MWF cholecalciferol (vitamin D3) 2,000 Units Oral Daily cyanocobalamin 1,000 mcg Oral Daily ferrous sulfate 325 mg Oral Daily with breakfast fluticasone furoate-vilanteroL 1 puff Inhalation Daily fluticasone propionate 1 spray Each Nare Daily folic acid 1 mg Oral QAM furosemide 40 mg Intravenous BID iron sucrose 300 mg Intravenous Q3 Days [START ON 10/15/2019] lisinopriL 10 mg Oral Daily [START ON 10/15/2019] metoprolol succinate 25 mg Oral Daily therapeutic multivitamin 1 tablet Oral Daily pantoprazole 40 mg Oral Daily potassium chloride 20 mEq Oral Daily tiotropium 18 mcg Inhalation Daily Continuous Infusions: PRN Meds: acetaminophen OR acetaminophen, albuterol, albuterol, bisacodyL, docusate so dium, guaiFENesin, melatonin, polyethylene glycol, sodium chloride COVID-19 Standard Documentation Malathi Hurley is clinically low risk for COVID-19. COVID-19 testing was NEGAT SOLANGE. Current isolation level: No active isolations PPE Statement: Carey Cervantes MD used Yellow precautions (Level 1 mask worn ov er level 3 mask and gloves). Carey Cervantes MD [facility] Medicine Division . * William Clemens, RN PALLIATIVE - 10/13/2019 10:57 PM CDT Respiratory Care Services Initial RATE Note 10/13/2019 11:01 PM A RATE assessment and treatement plan was performed on Malathi Hurley, : The primary Pulmonary/Respiratory related diagnosis for assessment on this admis kristofer is: Cardiac History, COPD and MAXIM, PULMONARY HYPERTENSIO History: The patient has a self-maintained airway. Home Therapy Review: The patient states the use of: short acting bronchodilators and long acting bron chodilators Home medication was validated in the under Prior to Admission Medications activi ty. Patient/Patient's family was able to describe current use. The patient states she does use oxygen at home. Oxygen devices used at home: nasal cannula Home O2 Usage: Continuous Home O2 Flow Rate (L/min): 3 L/min The patient states she does use assistive ventilatory support devices at home. Assistive ventilatory support devices include: Type of Home Vent: CPAP for MAXIM The patient states she does not use other home therapies: NO OTHER HOME THERAPI ES Social History Review: The patient reports that she has never smoked. She has never used smokeless tob acco. Counseling given: Not Answered Physical Assessment: Pulse: 66 Resp: 18 SpO2: 98 % O2 Flow Rate (L/min): 3 L/min Lung Assessment: Respiratory (WDL): WDL (*WDL=Within Defined Limits; X=Exceptions to WDL) Respiratory Pattern: Respiratory Pattern: Normal Chest Assessment: SYMMETRICAL Breath Sounds: DIMINISHED AND COARSE Cough Effort: Cough: Non-productive The operating protocol was initiated based on the RATE Consult physician order. Based on the patient's history and current physical assessment, the patient nader ts criteria for the following treatment plan(s): Treatment Plan The treatment plan identified for the patient is as follows: Medication Therapy Protocol: Medication Criteria for Service: Home Therapy Regimen Intervention: SVN with bronchodilator;MDI (see MAR) Expected Outcome: Bronchospasm Relief Oxygen Therapy Protocol: Oxygen Therapy Criteria for Service: Home Oxygen Regimen Intervention: Low Flow Device Expected Outcome: Maintain SpO2 Home BiPAP/CPAP, Mechanical Ventilation Protocol: MAXIM Criteria for Service: Previously tested for MAXIM with positive results requir ing intervention during sleep Intervention: Other (See comments) (PATIENT REFUSED THE HOSPTIAL CPAP) Expected Outcome: Maintain home status until discharge Order/Plan Summary Patient is currently on 3LPM O2, its her home regime, she is still having shortn ess of breath but said its better than when she came to ER. She refused to use t he hospital CPAP for night, will let the RT know if she changes her decision. Wi ll continue home regime and will monitor. Based on the RATE Criteria being met, the following RATE Protocols will be used: RATE Operating Medical Protocol RATE Adult Medication Therapy Medical Protocol RATE Adult Oxygen Therapy Medical Protocol RATE Home CPAP, BiPAP, Mechanical Ventilation Medical Protocol documented in this encounter H&P Notes * Titi Rondon MD - 10/13/2019 10:15 PM CDT [facility] Hospitalist - History & Physical Patient Name: Malathi Hurley Account No: [id number] Date of : 1950 Date of Admission: 10/13/2019 9:20 PM Primary Care Physician: Carlos Castellano MD; Subjective Chief Complaint: soa History of Present illness: Ms. Malathi Hurley is a 69 y.o. female with a hist ory of combined systolic and diastolic CHF, chronic kidney disease, chronic resp iratory failure on 3 L of oxygen, paroxysmal atrial fibrillation, anemia, transp orted from a outside hospital emergency room, [facility] via transfer tea m. Patient reported that that she was not feeling well for last few days, she has b een having the more shortness of air for last 4 to 5 days, she also felt like fl uid buildup in her lungs, she was having the nausea for last for 5 days. She al so had a 2 episode of vomiting. She reported that she had episode of her chest pain about 2 days ago, there was a sharp pain lasted for 4 minutes and resolved by itself. No specific aggravating or relieving factors. Patient denies any ex ertional chest pain. She denies any cough or fever. Patient presented at [facility] emergency room and patient minute transfer red via transfer team. Please note that on arrival of the patient there is no E R records or any paperwork was sent with the patient. Records being requested f [facility] emergency room. Patient reported that she supposed to have a cardiology appointment next week bacon s been diagnosed with valvular heart disease and there is some discussion about the mitral valve clipping. In transfer, by transfer team it was reported that patient's laboratory data are reported as a hemoglobin 9.6 creatinine 2.28 troponin 0.04 BNP 2760. (I do not have the actual records.) Addendem:11:31 PM, 10/13/2019 Records faxed from [facility] emergency room, on laboratory data creatini ne 2.28 WBC 5.6 hemoglobin 9.6 platelet count of 204, INR 2.0 urine analysis suzie koesterase negative nitrate negative, lipase 21 troponin 0.047, BNP 2760. Chest x-ray mild cardiomegaly. Unchanged central vascular congestion with uncha nged right basilar atelectatic change and/or infiltrate. EKG was not included in records. Addendem: 12:09 AM EKG atrial paced rhythm 70 no preior ekg avialble for comparison ROS A 10-point review of systems was completed and was negative except as noted abov e. 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 (HCC) Chronic respiratory failure (HCC) uses oxygen 3 L at home CKD (chronic kidney disease) Essential hypertension Frequent epistaxis Mitral regurgitation NICM (nonischemic cardiomyopathy) (HCC) Nonischemic cardiomyopathy (HCC) Nonrheumatic mitral valve regurgitation Obesity MAXIM (obstructive sleep apnea) PAF (paroxysmal atrial fibrillation) (HCC) Pulmonary hypertension (HCC) Sarcoidosis suspected Tricuspid regurgitation Past Surgical History: Procedure Laterality Date APPENDECTOMY 1998 BRONCHOSCOPY 03/2019 CARDIOVERSION 06/18/2019 [facility] (with rhyth maintenance on Amiodarone) CARDIOVERSION 03/13/2012 [...] LEFT HEART CATHETERIZATION 11/06/2011 SKIN BIOPSY 09/22/2013 Family History Problem Relation Age of Onset Hypertension Father Social History Tobacco Use Smoking status: Never Smoker Smokeless tobacco: Never Used Substance Use Topics Alcohol use: Yes Alcohol/week: 2.0 standard drinks Types: 2 Shots of liquor per week Drug use: Never No Known Allergies Prior to Admission medications Medication Sig albuterol (ACCUNEB) 1.25 mg/3 mL (0.042 %) nebulizer solution Inhale 1 ampule vi a nebulizer every 6 (six) hours as needed [...] Take 0.25 mcg by mouth every Friday, Fri and Friday. cholecalciferol, vitamin D3, 1,000 units(25 mcg) tablet Take 2,000 Units by mout h daily. clotrimazole-betamethasone (LOTRISONE) cream Apply topically 2 (two) times a day . cyanocobalamin (VITAMIN B-12) 1000 MCG tablet Take 1,000 mcg by mouth daily. ferrous sulfate 325 (65 FE) MG tablet Take 65 mg by mouth every 48 hours. fluticasone propion-salmeteroL (ADVAIR) 250-50 mcg/dose DISKUS Inhale 1 puff 2 ( two) times a day. fluticasone propionate (FLONASE) 50 mcg/actuation nasal spray Use 1 spray in eac h nostril daily. folic acid (FOLVITE) 1 MG tablet Take 1 mg by mouth every morning. furosemide (LASIX) 40 MG tablet Take 40 mg by mouth daily. lisinopriL (PRINIVIL,ZESTRIL) 20 MG tablet Take 1 tablet (20 mg total) by mouth daily. pantoprazole (PROTONIX) 40 MG tablet Take 40 mg by mouth daily. potassium chloride (KLOR-CON) 10 MEQ CR tablet Take 20 mEq by mouth daily. therapeutic multivitamin (THERAGRAN) tablet Take 1 tablet by mouth daily. tiotropium (SPIRIVA) [address] 2.5 mcg into inhaler and in john daily. turmeric curcumin (THERACURMIN CARDIOTAB) 600 MG capsule Take 560 mg by mouth da destiny. Objective Triage Vital Signs: Temp: 36.6 C (97.8 F) Pulse: 70 Resp: 19 BP: 119/75 SpO2 : (!) 3 % Physical Exam Blood Pressure: BP: 119/75 Pulse: Pulse: 70 Temperature: Temp: 36.6 C (97.8 F) Respirations: Resp: 19 Admission Weight: O2 Saturation: SpO2: (!) 3 % BMI: There is no height or weight on file to calculate BMI. General no acute distress Eyes Pupils equal. Reactive to light, Head Normocephalic, atraumatic Nose Patent without discharge Mouth/Throat Pharynx clear without erythema or exudate Neck Soft and supple Chest Non-tender to palpation Lungs Clear to auscultation, no crackles, No rhonchi, No wheezes Heart Normal S1 S2, + murmurs, Noclicks, No gallops Abdomen Soft, non-tender, non-distended, + bowel sounds Neuro Alert, orientedx4, Extremity B/L leg trace edema Derm No rashes, Vascular JVD: No, Gtz Catheter: Removal of the Gtz Catheter ordered EKG : Records from [facility] emergency room requested. ISABELA 09/22/19: 1. Mild left ventricular dilatation with mildly reduced left ventricular systoli c function, with an estimated ejection fraction of 40%. 2. Normal right ventricular size with mildly reduced systolic function. 3. Moderate to severe mitral regurgitation due to restriction motion of the posterior leaflet. 4. Moderate to severe tricuspid regurgitation. 5. Severe pulmonary hypertension, estimated PASP = 80 mmHg. I have personally reviewed the patient's vital signs, laboratory/pathology/cultu re results (as indicated), current inpatient medications and postal support employee notes with pertainent findings noted within the assessment/plan. I have personally re viewed and updated the patient's past medical history, past surgical history, fa liberty history and social history as appropriate. Assessment/Plan Ms. Malathi Hurley is a 69 y.o. female who was admitted on 10/13/2019 with compl aint of SOA. * Acute on chronic combined systolic and diastolic CHF (congestive heart failure ) ([facility]) -RECENT isabela 09/22/19 -1. Mild left ventricular dilatation with mildly reduced left ventricular systol ic function, with an estimated ejection fraction of 40%. 2. Normal right ventricular size with mildly reduced systolic function. 3. Moderate to severe mitral regurgitation due to restriction motion of the posterior leaflet. 4. Moderate to severe tricuspid regurgitation. 5. Severe pulmonary hypertension, estimated PASP = 80 mmHg. -IV Lasix. Telemetry. -Patient has ICD in place. -Cardiology consult Nonrheumatic mitral valve regurgitation -Recent echo as above, there was some discussion with the cardiology about jose alejandro l clipping. -Cardiology consult PAF (paroxysmal atrial fibrillation) ([facility]) -Patient has a history of atrial fibrillation, patient is on amiodarone 200 mg o nce a day. -She reported that her metoprolol was recently discontinued --Patient on anticoagulation with Eliquis CKD (chronic kidney disease) -During transfer reported her creatinine was 2.2 in emergency room today. -No previous creatinine available for comparison. -During transfer reported that patient previous creatinine was 1.8 -Monitor creatinine closely Chronic anemia -Patient seems to has a history of chronic anemia, she reported that her previou s hemoglobin in about a month ago was 8.2. -Today in transfer, reported hemoglobin was 9.6. -Check iron studies, fecal occult blood Chronic respiratory failure with hypoxia (HCC) -Patient on 3 L of oxygen at home -Continue bronchodilator Obstructive sleep apnea -Patient has a CPAP at home but this is not using it as he said this is not tole rating mask. Essential hypertension -Continue home medications, lisinopril I also called the transfer team and discussed with the to connect with the [facility] but they reported that they are busy with emergency patient. Recor jose luis from the [facility] emergency room requested Discussed with nursing staff. In addition, see my orders for additional details regarding this patients treatm ent plan. Diet: Diet-Low Fat/Chol, 2 gm Na (Simply Healthy) VTE Prevention: Appropriate VTE chemical treatment ordered. Appropriate VTE mec hanical treatment ordered. Code Status: Full Code The patient does not have an advanced directive. The patient's surrogate decisio n maker/DPOA is Bharathi Lloyd ([phone]). Disp: Admit the patient as Inpatient to [facility] with telemetry for treatmen t as noted above. COVID-19 Standard Documentation Malathi Hurley is clinically low risk for COVID-19. If the COVID-19 test retur ns NEGATIVE, It is okay to remove the enhanced respiratory precautions and order any other appropriate precautions based on other diagnoses. Current isolation level: No active isolations PPE Statement: Titi Rondon MD used Green precautions (Level 1 mask and glove s). Titi Rondon MD [facility] Medicine Division . documented in this encounter Consult Notes * Dm Lord MD - 10/14/2019 11:43 AM CDT Associated Order(s): IP CONSULT TO CARDIOLOGY [facility] Cardiology COVID-19 Consult Note This hospital encounter may have been performed with modifications including navarro ited or no face to face contact as noted in physical exam below due to concerns about potential exposure to COVID-19 in an effort to minimize patient and provid er risk. Date: 10/14/2019 Established [facility] patient: Yes: Provider: Inocente Oreilly MD Last date seen: 09/22/2019 PCP: Carlos Castellano MD Case discussed with Requesting Physician: No Requesting Physician: Titi Rondon MD Reason for consult: chf, chest pain Note generated by: Uli Hoffman MD HPI: 69-year-old female with PMH of an ICM s/p ICD in 2011, chronic systolic and diastolic heart failure, severe mitral regurgitation, paroxysmal atrial fibrill ation, chronic kidney disease, chronic respiratory failure on 2 L home oxygen, C OPD, hypertension, MAXIM was admitted to the hospital for not feeling well for las t few days with shortness of breath. Cardiology is consulted for CHF exacerbati on. Patient reports that she has not been feeling well for last 1 week. She describ es shortness of breath even at rest. She is on 3 L home O2 for COPD. Denies an y increased oxygen requirements. Patient states that she knows when fluid build up in her lungs and that is when she starts feeling the way she is feeling right now. She also describes associated chest tightness with shortness of breath. She also have episode of palpitations which last few minutes and results in incr eased shortness of breath. She states feeling dizzy if she stands up all of a s udden from sitting position. She also feels she has been gaining weight recentl y. Patient states that she started feeling these changes few weeks ago when her Lasix was decreased from 120 mg daily(80 in morning and 40 in evening) to 40 mg daily. She reports her lower extremity swelling has been increasing since then. She has had multiple hospitalization recently for similar issues with exacerb ation of her heart failure. She was last seen in cardiology clinic here on 09/22/2019. She underwent ISABELA i ch demonstrated restricted posterior anterior leaflet with both severe posterior ly directed mitral regurgitation as well as moderate to severe tricuspid regurgi tation. EF was 40%. At that time since she was not on optimal medical therapy, it was planned once she is close to optimized then there will be a virtual visit arranged with advanced heart failure/transplant radio reporter followed by a rep eat visit with multidisciplinary valve clinic with a TTE to evaluate severity of mitral regurgitation. Her diltiazem was changed to metoprolol and she was star markus on lisinopril as well. At that time she was continued on Lasix 120 mg daily . However she states that few weeks ago her radio reporter/PCP changed her Lasix from 120 daily to 40 mg daily(likely due to low blood pressures). Presently she is feeling comfortable although she still has shortness of breath. She was given IV Lasix 40 mg at OSH ER before being transferred here. BP here is 108/88. Pulse 69. On 3 L O2 via NC. Her lab work shows sodium 133, potass ium 4.8, magnesium 2.4, creatinine 2.2, troponin stable at 0.04 x 2, BNP 7470, h emoglobin 8.5. EKG shows atrial paced rhythm at rate of 70. Her CXR at OSH sabiha wed mild cardiomegaly with unchanged central vascular congestion and unchanged r ight basilar atelectatic changes. 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 (HCC) Chronic respiratory failure (HCC) uses oxygen 3 L at home CKD (chronic kidney disease) Essential hypertension Frequent epistaxis Mitral regurgitation NICM (nonischemic cardiomyopathy) (HCC) Nonischemic cardiomyopathy (HCC) Nonrheumatic mitral valve regurgitation Obesity MAXIM (obstructive sleep apnea) PAF (paroxysmal atrial fibrillation) (HCC) Pulmonary hypertension (HCC) Sarcoidosis suspected Tricuspid regurgitation Past Surgical History: Procedure Laterality Date APPENDECTOMY 1998 BRONCHOSCOPY 03/2019 CARDIOVERSION 06/18/2019 [facility] (with rhyth maintenance on Amiodarone) CARDIOVERSION 03/13/2012 [...] LEFT HEART CATHETERIZATION 11/06/2011 SKIN BIOPSY 09/22/2013 Social History: reports that she has never smoked. She has never used smokeless tobacco. She re ports current alcohol use of about 2.0 standard drinks of alcohol per week. She reports that she does not use drugs. Family History Problem Relation Age of Onset Hypertension Father Family History of Premature CAD: No Review of Systems 10 points reviewed and found negative except as noted in the HPI, or below: Review of Systems Constitutional: Positive for activity change (decreased activity, feeling tired and fatigued.), fatigue and unexpected weight change (Recent weight gain). Negat solange for fever. HENT: Negative. Eyes: Negative for visual disturbance. Respiratory: Positive for chest tightness (associated with palpitations.) and sh ortness of breath. Cardiovascular: Positive for chest pain (one episode lasting for a minute yester day morning, self resolved. Non exertional.), palpitations (on and off. ) and le g swelling. Orthostatic light headedness Gastrointestinal: Negative for abdominal pain, diarrhea, nausea and vomiting. Endocrine: Negative for polyuria. Genitourinary: Negative for dysuria. Musculoskeletal: Negative for back pain and joint swelling. Allergic/Immunologic: Negative. Neurological: Negative for dizziness, syncope, light-headedness and headaches. Hematological: Negative. Psychiatric/Behavioral: Negative. All other systems reviewed and are negative. No Known Allergies Medications-Current: albuterol 2 puff Inhalation 4x daily allopurinoL 100 mg Oral Daily amiodarone 200 mg Oral QAM apixaban 5 mg Oral BID [START ON 10/15/2019] calcitrioL 0.25 mcg Oral Q MWF cholecalciferol (vitamin D3) 2,000 Units Oral Daily cyanocobalamin 1,000 mcg Oral Daily ferrous sulfate 325 mg Oral Daily with breakfast fluticasone furoate-vilanteroL 1 puff Inhalation Daily fluticasone propionate 1 spray Each Nare Daily folic acid 1 mg Oral QAM furosemide 40 mg Intravenous Daily lisinopriL 20 mg Oral Daily therapeutic multivitamin 1 tablet Oral Daily pantoprazole 40 mg Oral Daily potassium chloride 20 mEq Oral Daily tiotropium 18 mcg Inhalation Daily LABS & IMAGING: No results found. EKG: Atrial paced rhythm. Nonspecific IVCD with LAD. LVH. at 70 bpm Telemetry: Atrial paced rhythm Most Recent Result within the last 7 days Lab Units 10/14/19 0121 WBC TH/uL 4.95 HEMOGLOBIN g/dL 8.5* HEMATOCRIT % 27* PLATELET COUNT TH/uL 171 Recent Labs 10/14/19 0121 NA 133 CL 98 CO2 29 BUN 46* CREAT 2.2* MG 2.4 Most Recent Result within the last 7 days Lab Units 10/14/19 0121 POTASSIUM MEQ/L 4.8 Most Recent Result within the last 7 days Lab Units 10/14/19 0121 GLUCOSE mg/dL 89 Most Recent Result within the last 7 days Lab Units 10/14/19 0121 ALKALINE PHOSPHATASE IU/L 98 PROTEIN TOTAL SERUM g/dL 6.8 ALBUMIN g/dL 3.6 ALANINE AMINOTRANSFERASE IU/L 45* ASPARTATE AMINOTRANSFERASE IU/L 37 Most Recent Result within the last 7 days Lab Units 10/14/19 0121 10/13/19 2234 TROPONIN ng/mL 0.04* 0.04* Lab Results Component Value Date NTPROBNP 7,470 10/14/2019 Coronary angiography : 2019-normal coronaries Echo: Echo Transesophageal with Doppler and Color Flow Date: 09/22/2019 IMPRESSION 1. Mild left ventricular dilatation with mildly reduced left ventricular sys tolic function, with an estimated ejection fraction of 40%. 2. Normal right ventricular size with mildly reduced systolic function. 3. Moderate to severe mitral regurgitation due to restriction motion of the posterior leaflet. 4. Moderate to severe tricuspid regurgitation. 5. Severe pulmonary hypertension, estimated PASP = 80 mmHg. PHYSICAL EXAM: Temp: [36.5 C (97.7 F)-36.7 C (98.1 F)] 36.5 C (97.7 F) Pulse: [66-70] 70 Resp: [18-19] 18 BP: (96-119)/(52-88) 96/52 NANDO Risk Index for in-hospital mortality Age: 69 y.o. BP: 96/52 Pulse: 70 NANDO Risk Index Score: 34 <20 is low risk 20-30 is Intermediate >30 is high risk Physical Exam General appearance: Obese. Not in distress. Alert, appears stated age and coop erative. Head: Normocephalic, atraumatic Neck: no adenopathy, no carotid bruit, no JVD, Lungs: Bilateral wheezing and basilar crackles. Chest wall: no tenderness Heart: regular rate and rhythm, S1, S2 normal Abdomen: soft, non-tender; bowel sounds normal Extremities: Bilateral lower extremity pitting edema 2+. Pulses: 2+ and symmetric Skin: Skin color, texture, turgor normal. No rashes or lesions ASSESSMENT & PLAN: 69-year-old female with PMH of an ICM s/p ICD in 2011, chronic systolic and molina tolic heart failure, severe mitral regurgitation, paroxysmal atrial fibrillation , chronic kidney disease, chronic respiratory failure on 2 L home oxygen, COPD, hypertension, MAXIM was admitted to the hospital for not feeling well for last few days with shortness of breath. Cardiology is consulted for CHF exacerbation. Acute on chronic combined systolic and diastolic heart failure Pulmonary hypertension -Could be due to severe MR combined with decreased Lasix dose recently. Was on 120 mg daily Lasix up until few weeks ago. Decreased to 40 mg daily. -Recent ECHO(ISABELA) : Suggestive of decreased EF of 40%, moderate to severe MR and moderate to severe TR with severely elevated PAP of 80 mm -Volume overloaded on exam(bilateral lower extremity edema, crackles on chest ex am) -Chest x-ray at OSH suggestive of pulmonary edema. -Unchanged baseline O2 requirements. -BNP 7470. Troponin 0.04 x 2. -Received IV 40 Lasix in the evening at OSH ER. -Continue diuresis with Lasix 40 mg IV BID. Will avoid aggressive diuresis give n low blood pressure and history of orthostatic episodes. May need Midodrine if continues to be hypotensive. Mitral regurgitation - nonrheumatic Tricuspid regurgitation -nonrheumatic, moderate to severe -Severe MR on ISABELA as above -Continue GDMT with metoprolol and lisinopril. -Plan during recent visit on 09/21 was to optimize her medical therapy in order t o evaluate her for severity of MR and eventual mitral valve repair with MitraCli p. -Patient has had multiple hospitalization recently with HF exacerbations. -We will defer to day team for further plan. Paroxysmal atrial fibrillation -Currently in atrial paced rhythm with rate control. -Continue amiodarone and metoprolol. -[id number] score 4. -Continue Eliquis twice daily CKD stage IV -Creatinine 2.2, GFR 27 Patient to be staffed in the a.m. A total of 30 mins of provider time was spent on retrieving results, reviewing r esults, interpreting results and providing communication on results and recommen dations. PPE Statement: Uli Hoffman MD used Green precautions (Level 1 mask and stella ves). Uli Hoffman MD PGY-1 Internal Medicine 10/14/2019 4:12 AM Patient is poor historian 69 yo AA F recently admitted 09/22/19 for HF with moderate to severe MR. Was DC'e d home on Lasix 80/[address] Oreilly for TMVR evaluation. She was started on ORAL and toprol for optimal medical therapy prior to consideration of TMVR and bacon s video visit with him next Friday. She apparently was admitted at local [facility] near her home and had lasix changed to only 40 daily and toprol stopped due to her renal function and BPs 1 week ago. She returns now with FERMIN, orthopnea, and CXR c/w pulmonary edema 1) Acute on Chronic Systolic and Diastolic HF - EF 40% on recent echo. Only on lisinopril 20 and lasix 40 - BPs low normal - would not do aldactone given Cr PLAN - IV lasix 40 IV BID for now. Cr 2.2 (baseline 2). Monitor I/Os, weights, and Cr - change lisinopril to 10 daily and add back toprol 25 daily in AM - intensify ORAL- and BB as able while here 2) Moderate to Severe MR - being evaluated for Jose Alejandro-clip procedure next Friday with Dr. Oreilly as video v isit - I encouraged her son to attend call with patient since she is confused re: roger n 3) Paroxysmal AF - A-paced and on eliquis. Starting back BB 4) Stage 4 CKD - monitor Cr trajectory with IV diuresis PPE Statement: Dm Lord MD used Yellow precautions (Level 1 mask worn over lev el 3 mask and gloves). I, Dm Lord MD, have seen and examined this patient and I have discussed the pl an of care with the resident/fellow. I have reviewed patient's events for the la st 24 hrs including nurses notes, physical exam, labs, imaging studies, hemodyna miranda data, fluid balance, and medications. I agree with the findings and outlined plan. As the rounding physician, I have been personally present and involved in management of these events and the overall assessment and plan of care. In william tion, I have: - performed an independent review of the following: Telemetry - discussed the case with the following: patient - ordered the following for this patient: IV lasix BID Primary reason for admit/consult: CHF Dm Lord MD. 10/14/2019 11:43 AM documented in this encounter Nursing Notes * Lorin Jerome RN - 10/13/2019 9:50 PM CDT Pt admitted by EMS to H415 ~2120. VSS, on 3LNC which she wears at baseline. Apaced on tele. Pt denies pain, SOA at this time. Gtz present on admission. Med list reviewed and Hospitalist notified of pt arr ival. 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 documented in this encounter Miscellaneous Notes * Care Progression Final DC Note - Genia Hennessy RN - 10/18/2019 2:24 PM CDT Final Discharge Note Final Discharge Disposition: 01-Home Self Care Discharge goal and plan is mutually agreed upon by patient and physicians/ nursi ng staff. Patient will discharge to: Home with who can asst Transportation: Discharge Time: per RN Special Instructions: See assessment today/ HF f/u Video Visit with Inocente Oreilly MD Friday 1:15 PM (Arrive by 12:45 PM) Genia Hennessy RN, BSN Senior Technical Specialist [phone] * Care Progression Initial Assessment - Genia Hennessy RN - 10/18/2019 2:19 PM CDT Care Progression Initial Assessment Note DC Plan: Dc to home today with her . Lives with spouse in a house near [place] Has a walker but rarely uses it. Indep with ADL's. Home oxygen but could not remember name of agency providing/ maybe [facility]. Has 2 portable tanks for dc today. Declines needs or for any HH. Additional information: Assessment via phone. Pt states no dc needs/ no need for HH. DX: Combined systolic/diastolic CHF. 09/22/19 seen [facility] for ISABELA to eval for MR then TMVR clinic at a later date. Hx: ischemic cardiomyopathy, systolic/diastolic heart failure s/p ICD placement, severe mitral regurgitation, paroxysmal atrial fibrillation, CKD, chronic respi ratory failure on 2 L oxygen secondary to COPD, hypertension, and MAXIM Referral to see patient was placed by Referral Source: Care Progression , Referral Reason: Discharge planning, Initial Assessment Initial assessment completed and Introduced self and purpose of meeting with the patient and is agreeable to inte rview at this time. Patient's Living Arrangement: House Patients support system has been Support System: Spouse/significant other Patient has verbalized the following concerns at discharge: None Pt has Payor: [employer] / Plan: OUT OF AREA PREF CARE / Product Type: *No Product type* / Legal Information: Patient does not have advance directive Discussion of advance directives and information provided: Yes Not want to compl ete DPOA Healthcare Agent's Name: Bharathi Lloyd Healthcare Agent's Patient currently uses at home: Assistive Devices: Walker, Oxygen(Doesn't use wa lker often/ does not remember name of oxygen co) Respiratory items:: Oxygen Oxygen Information: Nasal Cannula, Home concentrato r, Portable tanks Patient states their Income Source: Not employed. Retired, Government Assistance: Medicare( primary) Income/Expense Information: Income meets expenses Resources Available: Rx benefits Verified that patients primary care physician is Carlos Castellano MD and naveed ves their medications from [facility] [address] [place] [id number] Facesheet verified. Genia Hennessy RN, BSN Senior Technical Specialist [phone] * End of Shift Note - Prosper Kaur RN - 10/18/2019 5:54 AM CDT End of Shift Summary and Plan of Care No acute events overnight. A-paced, RA. VSS. Pt not wanting to wear CPAP overnig ht. Plan to d/c home today with self care. Goals per Patient Condition Fall Prevention Plan Patient will remain free from injury related to falls. See the Daily cares/safety flowsheet for intervention documentation. Goals/Plan for Shift Patient/Family stated goal for shift: get ready to go home tomorrow Nursing goal for shift: Diurese, pain control, rest, discharge planning Plan: Switched to PO lasix during W1 shift, tylenol for pain, bundle cares, d/c home with self care tomorrow (friday) Goals/Plan for Hospital Stay Patient/Family stated goal for hospital stay: Feel better Nursing goal for hospital stay: Oxygen level stable, diurse, no injury during ho spital stay Plan: Fall precautions in place, monitor vital signs, telemetry, I/Os * End of Shift Note - Prosper Kaur RN - 10/17/2019 5:27 AM CDT End of Shift Summary and Plan of Care A-paced, 3L. No acute events overnight. Continuing to diurese well. Tylenol x1 f or back pain. Pt not wanting to wear CPAP overnight. Plan to likely switch to PO lasix today per Hospitalist and d/c tomorrow (Friday). Goals per Patient Condition Fall Prevention Plan Patient will remain free from injury related to falls. See the Daily cares/safety flowsheet for intervention documentation. Goals/Plan for Shift Patient/Family stated goal for shift: keep breathing better Nursing goal for shift: diurese, no increased oxygen demands, increase activity as able Plan: 3L o2 at baseline, accurate I/O, fluid restriciton per order Goals/Plan for Hospital Stay Patient/Family stated goal for hospital stay: Feel better Nursing goal for hospital stay: Oxygen level stable, diurse, no injury during ho spital stay Plan: Fall precautions in place, monitor vital signs, telemetry, I/Os * End of Shift Note - Lorraine Lloyd RN - 10/16/2019 5:15 PM CDT End of Shift Summary and Plan of Care Pt Apaced, 3L. Pt received Lasix 40 mg IV BID today. Cr 1.9. Lisinopril increase d to BID. Pt up in halls with PT. Pt denies pain at this time. Goals per Patient Condition Fall Prevention Plan Patient will remain free from injury related to falls. See the Daily cares/safety flowsheet for intervention documentation. Goals/Plan for Shift Patient/Family stated goal for shift: get extra fluid off and breathe easier Nursing goal for shift: diurese, increase activity Plan: IV lasix, monitor o2 sat, 3L O2 at baseline, accurate I/O Goals/Plan for Hospital Stay Patient/Family stated goal for hospital stay: Feel better Nursing goal for hospital stay: Oxygen level stable, diurse, no injury during ho spital stay Plan: Fall precautions in place, monitor vital signs, telemetry, I/Os * End of Shift Note - Prosper Kaur RN - 10/16/2019 5:37 AM CDT End of Shift Summary and Plan of Care A paced, sometimes AV paced. 3L. No acute events overnight, SBP soft, pt asympto matic. No complaints of pain. Continuing to diurese. Goals per Patient Condition Fall Prevention Plan Patient will remain free from injury related to falls. See the Daily cares/safety flowsheet for intervention documentation. Goals/Plan for Shift Patient/Family stated goal for shift: to diurese and keep breathing better Nursing goal for shift: diurese, no increased o2 demands, labs WDL Plan: IV lasix, monitor o2 sat, 3L O2 at baseline, accurate I/O Goals/Plan for Hospital Stay Patient/Family stated goal for hospital stay: Feel better Nursing goal for hospital stay: Oxygen level stable, diurse, no injury during ho spital stay Plan: Fall precautions in place, monitor vital signs, telemetry, I/Os * End of Shift Note - Rin Hicks RN - 10/15/2019 6:08 PM CDT End of Shift Summary and Plan of Care Patient continuing to diurese well with IV lasix. O2 sats remain stable on home 3L NC. Patient is up SBA to bathroom. PT evaluated today. Will probably stay thr ough the weekend and dc on Friday. Goals per Patient Condition Fall Prevention Plan Patient will remain free from injury related to falls. See the Daily cares/safety flowsheet for intervention documentation. Goals/Plan for Shift Patient/Family stated goal for shift: to diurese and figure out a plan Nursing goal for shift: to diurese Plan: IV lasix, monitor creatinine, monitor UO Goals/Plan for Hospital Stay Patient/Family stated goal for hospital stay: Feel better Nursing goal for hospital stay: Oxygen level stable, diurse, no injury during ho spital stay Plan: Fall precautions in place, monitor vital signs, telemetry, I/Os * Therapy Note - Dolores Zarco, PT - 10/15/2019 3:37 PM CDT 10/15/19 1410 PT Visit Info Initial PT Visit On 10/15/19 Assessed for Rehab Yes Past medical history reviewed through chart review: Yes Referral Reason PT-d/c plans Medical Dx per Physician CHF exacerbation, SOA Ordering practitioner [place] Comorbidities pertaining to therapy diagnosis hyponatremia, mitral valve regurg, A-fib, CKD, HTN Patient/Family Reports Pt agrees to PT eval PT Received On 10/15/19 Precautions Fall Risk No Isolation No Supplemental Oxygen RA 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, 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; pt wear s a level 1 mask Home Living Type of Home House Home Layout One level Stairs to enter 2-3 steps Lives With Son Home Assistive Device Rolling walker Prior Function Level of Endeavor Independent with ADLs;Independent with functional transfer s;Independent with ambulation Receives Help From Family Pain Assessment Pain Score 0 Cognition Overall Cognitive Status WFL Orientation Level Oriented to person;Oriented to place;Oriented to time;Oriented to situation Safety Judgment Good awareness of safety precautions Transfers Sit to Stand Transfers Stand by assistance Stand to Sit Transfers Stand by assistance Toilet transfer Stand by assistance Gait Gait Distance (Feet) 250 Gait Level Surface Assistance Stand by;Verbal cueing required Pattern Decreased maik;Increased lateral deviation Gait Comments Pt needs verbal cues for safety w/ turns. Pt takes 5 short standi ng rest breaks. Balance Standing Dynamic 4 Activity Tolerance Activity Tolerance good;- Sensation Additional Comments intact RLE Assessment RLE Assessment (grossly 4+/5) LLE Assessment LLE Assessment (grossly 4+/5) LE Ther Ex Ankle pump 6 - 10 reps;Bilateral Patient Education Patient Education Pt is instructed in safety w/ gait and activity recommendation s Response to education demonstrates understanding *ASSESSMENT Learning Barriers None Response to Treatment Good Response to Treat Comments Pt presents w/ a high level of functional independenc e w/ gross motor skills, will benefit from ambulation w/ mobility team *PLAN PT Frequency One time visit Discharge Recommendations Plan No skilled PT;Safe to DC home with family support Dolores Zarco, PT Physical Therapist * Assessment & Plan Note - Sameer Milian MD - 10/15/2019 2:57 PM CDT Associated Problem(s): Hyponatremia -Sodium improved to 136 today. -Monitor with diuresis. 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 Patient was treated for decompensated heart failure exacerbation with IV diuretics and cardiology was consulted. She respon ded well to IV Lasix over the next few days and her edema improved. She remaine d stable on her home oxygen requirement. By 10/16, cardiology transitioned patien t to oral furosemide at increased dose from her previous home dose. She has had lower blood pressures at times and her medications have been adjuste d to accommodate this. She is stable to discharge home today. She will need to follow up with cardiology per their recommendations. She does not feel she needs home health or other assistance on discharge. * End of Shift Note - Adeola Guadalupe RN - 10/15/2019 5:47 AM CDT End of Shift Summary and Plan of Care A-Paced; 1st deg AVB. 3LNC; CPAP overnight. Dyspnea with activity. .Ambulating x 1 staff assist to BR. Denies pain. Pt c/o nausea overnight, compazine ordered. + voids. Pt compliant with 200ml fluid restriction. IV venofer given. Fecal occu lt still needed. Continue to monitor. Goals per Patient Condition Fall Prevention Plan Patient will remain free from injury related to falls. See the Daily cares/safety flowsheet for intervention documentation. Goals/Plan for Shift Patient/Family stated goal for shift: Rest overnight Nursing goal for shift: Improve respiratory status, diurese Plan: Reposition; Cough + deep breathe, accurate I/Os Goals/Plan for Hospital Stay Patient/Family stated goal for hospital stay: Feel better Nursing goal for hospital stay: Oxygen level stable, diurse, no injury during ho spital stay Plan: Fall precautions in place, monitor vital signs, telemetry, I/Os * End of Shift Note - La Kemp RN - 10/14/2019 6:18 PM CDT End of Shift Summary and Plan of Care Patient SOA while ambulating. Diuresis well with IV lasix. 3L O2. Daily ortho s, Need fecal occult. Goals per Patient Condition Fall Prevention Plan Patient will remain free from injury related to falls. See the Daily cares/safety flowsheet for intervention documentation. Goals/Plan for Shift Patient/Family stated goal for shift: Feel better Nursing goal for shift: Diurese and increase endurance. Plan: Give lasix as per ordered and strict I & O's Goals/Plan for Hospital Stay Patient/Family stated goal for hospital stay: Feel better Nursing goal for hospital stay: Oxygen level stable, diurse, no injury during ho spital stay Plan: Fall precautions in place, monitor vital signs, telemetry, I/Os * End of Shift Note - La Kemp RN - 10/14/2019 5:46 PM CDT End of Shift Summary and Plan of Care Patient SOA while ambulating. Diuresing well on IV lasix. Goals per Patient Condition Fall Prevention Plan Patient will remain free from injury related to falls. See the Daily cares/safety flowsheet for intervention documentation. Goals/Plan for Shift Patient/Family stated goal for shift: Feel better Nursing goal for shift: Diurese and increase endurance. Plan: Give lasix as per ordered and strict I & O's Goals/Plan for Hospital Stay Patient/Family stated goal for hospital stay: Feel better Nursing goal for hospital stay: Oxygen level stable, diurse, no injury during ho spital stay Plan: Fall precautions in place, monitor vital signs, telemetry, I/Os * Discharge Planning - Criselda Del Rosario RN - 10/14/2019 3:35 PM CDT Discharge Planning Interventions General Discharge Note Transferred from [facility] ED via ambulance. Called into patient's room via phone and did not pick up and delivery driver. Unable to assess at t his time DX: Combined systolic/diastolic CHF. 09/22/19 seen [facility] for ISABELA to eval for MR then TMVR clinic at a later date. Home O2 3L Treating with Lasix 40 mg iv bid Emailed [facility] to re-look at the insurance. Medicare listed primary and husbands BC listed secondary. Patient spouse is wor gabriela a fulltime job still. Care Progression Mariella Del Rosario RN [facility] [phone] * End of Shift Note - Lorin Jerome RN - 10/14/2019 5:37 AM CDT End of Shift Summary and Plan of Care VSS, 3LNC, Apaced on tele. Dyspnea on exertion. Denies pain. Troponin 0.04, 0.04, 0.05. Denies chest pain. EKG shows A paced. Creat 2.2. Gtz was d/c'd per order. 1.4L output tonight. Goals per Patient Condition Fall Prevention Plan Patient will remain free from injury related to falls. See the Daily cares/safety flowsheet for intervention documentation. Goals/Plan for Shift Patient/Family stated goal for shift: Feel better Nursing goal for shift: diurese , O2 stable, VS and HRhythm stable. Plan: Monitor I/O, respiratory status, cluster care to promote sleep Goals/Plan for Hospital Stay Patient/Family stated goal for hospital stay: Feel better Nursing goal for hospital stay: Oxygen level stable, diurse, no injury during ho spital stay Plan: Fall precautions in place, monitor vital signs, telemetry, I/Os * Assessment & Plan Note - Sameer Milian MD - 10/13/2019 10:26 PM CDT Associated Problem(s): Obstructive sleep apnea -Continue CPAP nightly. * Assessment & Plan Note - Sameer Milian MD - 10/13/2019 10:26 PM CDT Associated Problem(s): Essential hypertension -Continue metoprolol and lisinopril (per cardiology can switch lisinopril to 20 mg daily on discharge). * Assessment & Plan Note - Sameer Milian MD - 10/13/2019 10:26 PM CDT Associated Problem(s): Chronic respiratory failure with hypoxia (HCC) -Remains stable on 3 L oxygen which is her baseline requirement. -Continue home bronchodilators. * Assessment & Plan Note - Sameer Milian MD - 10/13/2019 10:25 PM CDT Associated Problem(s): Chronic anemia -Hemoglobin up to 9.9 today. -History of chronic anemia; iron studies consistent with severe iron deficiency. -Continue IV Venofer every 3 days. -Oral iron supplementation on discharge. * Assessment & Plan Note - Sameer Milian MD - 10/13/2019 10:25 PM CDT Associated Problem(s): Stage 4 chronic kidney disease (HCC) -Creatinine 2.1 today which is at baseline. -Renally dose all medications and avoid nephrotoxic agents. -Will monitor renal function closely with diuresis. * Assessment & Plan Note - Sameer Milian MD - 10/13/2019 10:24 PM CDT Associated Problem(s): PAF (paroxysmal atrial fibrillation) (HCC) -Continue amiodarone and metoprolol.. -Continue anticoagulation with apixaban. * Assessment & Plan Note - Sameer Milian MD - 10/13/2019 10:24 PM CDT Associated Problem(s): Nonrheumatic mitral valve regurgitation -Cardiology following; patient has appointment scheduled later this coming week to discuss [employer]. * Assessment & Plan Note - Sameer Milian MD - 10/13/2019 10:23 PM CDT Associated Problem(s): Acute on chronic combined systolic and diastolic CHF (con gestive heart failure) (HCC) -Responded well to IV diuresis and transitioned to p.o. per cardiology today. -Cardiology on board; appreciate recommendations. -Continue furosemide 80 mg twice daily on discharge. -Telemetry monitoring. -Daily weights and monitor I's and O's. -ICD in place. -Patient did have some asymptomatic low blood pressure again this morning. Woul d like to watch her for 1 more day but likely discharge home tomorrow. documented in this encounter Plan of Treatment Care Team Description Date Type Specialty Dolores Eli RN ACNP [address] [facility] [address] [phone] 11/02/2019 Video Visit Cardiology documented as of this encounter Procedures Comments Procedure Name Priority Date/Time Associated Diag nosis RENAL PANEL Routine 10/18/2019 1:08 AM CDT RENAL PANEL Routine 10/17/2019 12:24 AM CDT CBC AND DIFF (MANUAL DIFF Routine 10/17/2019 IF NECESSARY) 12:24 AM CDT RENAL PANEL Routine 10/16/2019 2:21 AM CDT CBC AND DIFF (MANUAL DIFF Routine 10/16/2019 IF NECESSARY) 2:21 AM CDT RENAL PANEL Routine 10/15/2019 12:53 AM CDT MAGNESIUM Routine 10/15/2019 12:53 AM CDT XR CHEST 2 VIEWS (PA AND Routine 10/14/2019 LATERAL) 7:19 AM CDT TROPONIN Timed 10/14/2019 4:02 AM CDT TROPONIN Timed 10/14/2019 1:21 AM CDT NTPROBNP Routine 10/14/2019 1:21 AM CDT MAGNESIUM Routine 10/14/2019 1:21 AM CDT IRON/TRANSFERRIN Routine 10/14/2019 1:21 AM CDT FERRITIN Routine 10/14/2019 1:21 AM CDT COMPREHENSIVE METABOLIC Routine 10/14/2019 PANEL 1:21 AM CDT CBC AND DIFF (MANUAL DIFF Routine 10/14/2019 IF NECESSARY) 1:21 AM CDT B12/FOLATE Routine 10/14/2019 1:21 AM CDT ECG Routine 10/14/2019 12:03 AM CDT SARS-COV-2, EMELIA Routine 10/13/2019 (COVID-19) 10:45 PM CDT TROPONIN STAT 10/13/2019 10:34 PM CDT documented in this encounter Results * Renal Panel (10/18/2019 1:08 AM CDT) Only the most recent of 4 results within the time period is included. Sodium 134 133 - 147 MEQ/L [facility] Potassium 4.9 3.5 - 5.3 MEQ/L [facility] Chloride 92 (L) 96 - 112 MEQ/L [facility] Carbon Dioxide 36 (H) 20 - 32 MEQ/L [facility] Anion Gap 6 5 - 17 [facility] Calcium 9.3 8.4 - 10.5 mg/dL [facility] Glucose 96 70 - 100 mg/dL [facility] Albumin 3.5 3.5 - 5.0 g/dL [facility] Blood Urea 56 (H) 7 - 26 mg/dL [facility] Creatinine 1.9 (H) 0.4 - 1.1 mg/dL [facility] eGFR Female AA 32 (L) 60 - 200 [facility] mL/min/1.73sq m Hospital Lab eGFR Female 26 (L) 60 - 200 [facility] Non-AA mL/min/1.73sq m [facility] Phosphorus 4.3 2.5 - 4.5 mg/dL [facility] Specimen Blood Performing Organization Address City/State/Zipcode Ph one Number [facility] [address] [place] [address] LABORATORIES [facility] [address] [place] [address] * CBC and Diff (manual diff if necessary) (10/17/2019 12:24 AM CDT) Only the most recent of 3 results within the time period is included. WBC 6.51 4.00 - 11.00 TH/uL [facility] RBC 3.55 (L) 4.00 - 5.00 MIL/uL [facility] Hemoglobin 9.9 (L) 12.0 - 15.0 g/dL [facility] Hematocrit 32 (L) 36 - 45 % [facility] MCV 89 80 - 99 fL [facility] MCH 28 27 - 34 pg [facility] MCHC 31 (L) 32 - 36 % [facility] RDW 15.9 (H) 11.5 - 14.5 % [facility] Platelet Count 214 140 - 400 TH/uL [facility] MPV 11.0 9.4 - 12.3 fL [facility] Nucleated RBCs 0 0 - 0 /100 [facility] % Neutrophils 75 45 - 78 % [facility] %Lymphocytes 10 (L) 15 - 47 % [facility] %Monocytes 12 0 - 12 % [facility] %Eosinophils 2 0 - 7 % [facility] %Basophils 0 0 - 2 % [facility] % Imm Grans 0 0 - 1 % [facility] # Granulocytes 4.92 1.70 - 6.80 TH/uL [facility] # Lymphocytes 0.64 (L) 1.00 - 3.30 TH/uL [facility] # Monocytes 0.79 0.20 - 0.90 TH/uL [facility] # Eosinophils 0.14 0.00 - 0.40 TH/uL [facility] # Basophils 0.02 0.00 - 0.10 TH/uL [facility] Specimen Blood Performing Organization Address City/[facility] Ph one Number [address] [address] LABORATORIES [facility] [address] [place] [address] * Magnesium (10/15/2019 12:53 AM CDT) Only the most recent of 2 results within the time period is included. Magnesium 2.3 1.4 - 2.7 mg/dL [facility] Specimen Blood Performing Organization Address City/[facility] Ph one Number [address] [address] LABORATORIES [facility] [address] [place] [address] * XR Chest 2 views (PA and lateral) (10/14/2019 7:19 AM CDT) Specimen Impressions Performed At 1. Left pectoral dual-chamber transvenous pacer/ICD. NELIA 2. Asymmetric pulmonary edema. No conso lidation. READING SITE: [facility] Narrative Performed At Patient: MALATHI HURLEY Sex#: F #: [id number] Ruthy# : [id number] Location: [address] H415-01 Acces kristofer#: [id number] Procedure Requested: [id number] XR CHEST 2 VIEWS (PA AND LATERAL) Reason for Exam: chf Exam Ordered: 10/14/2019 080 0 Exam Date/Time: 10/14/2019 0719 Begin exam date/time: 10/14/2019 0715 XR CHEST 2 VIEWS (PA AND LATERAL) INDICATION: chf. COMPARISON STUDY: None. FINDINGS: Life Support Devices: Left pectoral renee l-chamber transvenous pacer/ICD. Lungs: Normal lung volume. No pulmonary mass or consolidation. Asymmetric pulmonary edema. Pleura: Trace right pleural fluid. No p neumothorax. Heart and Mediastinum: Cardiomegaly. Ao rtic atherosclerosis. Wide vascular pedicle. Bones and Soft Tissues: No acute skelet al or soft tissue abnormality. Procedure Note Interface, Rad Results In - 10/14/2019 8:10 AM CDT Patient: MALATHI HURLEY Sex#: F #: [id number] Ruthy#: [id number] Location: [facility] H4S H415-01 Procedure Requested: [id number] XR CHEST 2 VIEWS (PA AND LATERAL) Reason for Exam: chf Exam Ordered: 10/14/2019 0800 Exam Date/Time: 10/14/2019718 Begin exam date/time: 10/14/2019714 XR CHEST 2 VIEWS (PA AND LATERAL) INDICATION: chf. COMPARISON STUDY: None. FINDINGS: Life Support Devices: Left pectoral dual-chamber transvenous pacer/ICD. Lungs: Normal lung volume. No pulmonary mass or consolidation. Asymmetric pulmonary edema. Pleura: Trace right pleural fluid. No pneumothorax. Heart and Mediastinum: Cardiomegaly. Aortic atherosclerosis. Wide vascular pedicle. Bones and Soft Tissues: No acute skeletal or soft tissue abnormality. IMPRESSION 1. Left pectoral dual-chamber transvenou s pacer/ICD. 2. Asymmetric pulmonary edema. No consol idation. READING SITE: [facility] Performing Organization Address City/[place] [facility] Ph one Number MCKESSON * Troponin - 3 and 6 hr (10/14/2019 4:02 AM CDT) Only the most recent of 3 results within the time period is included. Troponin 0.05 (H) 0.00 - 0.03 ng/mL [facility] Comment: Hospital Lab Troponin Value Interpretation 0.00 - 0.03 Healthy 0.04 - 0.12 Increased Cardiac Risk >0.12 Myocardial Infarction Troponin may not become elevated until 6 to 8 hours after onset of symptoms. Specimen Blood Performing Organization Address City/[facility]/Zipcode Ph one Number [address] [address] LABORATORIES [facility] [address] [place] [address] * Iron/Transferrin (10/14/2019 1:21 AM CDT) Iron 46 (L) 50 - 180 ug/dL [facility] Transferrin 305 206 - 381 mg/dL [facility] Total 366 204 - 408 ug/dL [facility] Iron-Binding [facility] Capacity Iron/Transferri 13 (L) 15 - 50 % [facility] n % Saturation [facility] Specimen Blood Performing Organization Address City/[facility] Ph one Number [address] [address] LABORATORIES [facility] [address] [place] [address] * Ferritin (10/14/2019 1:21 AM CDT) Ferritin 63 20 - 200 ng/mL [facility] Specimen Blood Performing Organization Address City/[facility] Ph one Number [address] [address] LABORATORIES [facility] [address] [place] [address] * B12/Folate (10/14/2019 1:21 AM CDT) VITAMIN B12 >1000 (H) 239 - 931 pg/mL [facility] Folate >20.0 (H) 3.4 - 20.0 ng/mL [facility] Specimen Blood Performing Organization Address City/[facility] Ph one Number [address] [address] LABORATORIES [facility] [address] [place] [address] * NTproBNP (10/14/2019 1:21 AM CDT) NTproBNP 7,470 pg/mL [facility] Comment: Hospital Lab NT-proBNP Reference Ranges: <50 yr <450 pg/mL 50-75 yr <900 pg/mL >75 yr <1800 pg/mL A cutoff value of 1200 pg/mL is recommended in patients 50 to 70 years of age with a GFR between 30 and 60. NT-proBNP is unreliable in patients with GFR <30. Specimen Blood Performing Organization Address City/[facility]/Zipcode Ph one Number [address] [address] LABORATORIES [facility] [address] [place] [address] * Comprehensive Metabolic Panel (10/14/2019 1:21 AM CDT) Sodium 133 133 - 147 MEQ/L [facility] Potassium 4.8 3.5 - 5.3 MEQ/L [facility] Chloride 98 96 - 112 MEQ/L [facility] Carbon Dioxide 29 20 - 32 MEQ/L [facility] Anion Gap 6 5 - 17 [facility] Calcium 9.0 8.4 - 10.5 mg/dL [facility] Glucose 89 70 - 100 mg/dL [facility] Protein Total 6.8 6.0 - 8.2 g/dL [facility] Serum [facility] Albumin 3.6 3.5 - 5.0 g/dL [facility] Alkaline 98 42 - 140 IU/L [facility] Alanine 45 (H) 0 - 34 IU/L [facility] Lab e Aspartate 37 15 - 46 IU/L [facility] e Bilirubin Total 1.0 0.2 - 1.3 mg/dL [facility] Blood Urea 46 (H) 7 - 26 mg/dL [facility] Creatinine 2.2 (H) 0.4 - 1.1 mg/dL [facility] eGFR Female AA 27 (L) 60 - 200 [facility] mL/min/1.73sq m Hospital Lab eGFR Female 22 (L) 60 - 200 [facility] Non-AA mL/min/1.73sq m Hospital Lab Specimen Blood Performing Organization Address City/State/Zipcode Ph one Number [address] [address] LABORATORIES [facility] [address] [place] [address] * Electrocardiogram (ECG) (10/14/2019 12:03 AM CDT) QRSd 148 [facility] QT 436 [facility] QTC 471 [facility] ECGHR 70 [facility] ECGPR 204 [facility] Specimen Narrative Performed At [facility] Test Date: 2019-10-14 Pat Name: MALATHI HURLEY Department: [facility] H4S Room: 15 Gender: Female Pillowcase Turner: [id number] : 1950 Requested By: TITI RONDON Order Number: [id number] Reading MD: Brenden Morales Measurements Intervals [place] Rate: 70 P: [place]: 204 QRS: -75 QRSD: 148 T: 41 QT: 436 QTc: 471 Interpretive Statements ATRIAL-PACED RHYTHM NONSPECIFIC IVCD WITH LAD LEFT VENTRICULAR HYPERTROPHY Electronically Signed On 10-14-2019 15:38 :25 CDT by Brenden Morales Procedure Note Interface, External Ris In - 10/14/2019 3:38 PM CDT [facility] Test Date: 2019-10-14 Pat Name: MALATHI HURLEY Department: [facility] H4 Room: H415 Gender: Female Pillowcase Turner: [id number] : 1950 Requested By: TITI RONDON Order Number: [id number] Reading MD: Brenden Morales Measurements Intervals [place] Rate: 70 P: [place]: 204 QRS: -75 QRSD: 148 T: 41 QT: 436 QTc: 471 Interpretive Statements ATRIAL-PACED RHYTHM NONSPECIFIC IVCD WITH LAD LEFT VENTRICULAR HYPERTROPHY Electronically Signed On 10-14-2019 15:38:25 CDT by Brenden Morales Performing Organization Address City/State/Zipcode Ph one Number [facility] * SARS-COV-2, EMELIA (COVID-19) (10/13/2019 10:45 PM CDT) Overall Result Not Detected Not Detected [facility] Comment: Hospital Lab This test has been authorized by the FDA under an Emergency Use Authorization (EUA) for use by authorized laboratories. SARS-CoV-2, EMELIA Negative Negative [facility] [place] SARS RNA Negative Negative [facility] Specimen NASOPHARYNGEAL SWAB Performing Organization Address City/State/Zipcode Ph one Number [facility] [address] [place] [address] LABORATORIES [facility] [address] [place] [address] documented in this encounter Visit Diagnoses Diagnosis Acute on chronic combined systolic and diastolic CHF (congestive heart failure) (HCC) Hyponatremia Hyposmolality and/or hyponatremia NICM (nonischemic cardiomyopathy) (HCC) Nonrheumatic mitral valve regurgitation Nonrheumatic tricuspid valve regurgitat ion [facility] current use of antiarrhythmic drug Stage 4 chronic kidney disease (HCC) Chronic anemia Unspecified anemia Chronic anticoagulation Encounter for long-term (current) use o f anticoagulants Obstructive sleep apnea Obstructive sleep apnea (adult) (pediat any) PAF (paroxysmal atrial fibrillation) (H CC) Atrial fibrillation Essential hypertension Unspecified essential hypertension Chronic respiratory failure with hypoxi a (HCC) Tricuspid regurgitation Diseases of tricuspid valve documented in this encounter Administered Medications Action Date Dose Rate Site Medication Order MAR Action acetaminophen (TYLENOL) suppository 325-650 mg 325-650 mg, Rectal, Every 6 hours PRN, mild pain (pain score 1-3), fever, Starting Fri10/13/19 at 2209, Administer if patient unable to tolerate oral medications., 10/16/2019 9:26 PM CDT 650 mg acetaminophen (TYLENOL) tablet 325-650 Given mg 325-650 mg, Oral, Every 6 hours PRN, mild pain (pain score 1-3), fever, Starting Fri10/13/19 at 2209, Do not exceed 4 GM/DAY of acetaminophen. If 6 5 or older do not exceed 3 GM/DAY. If chronic alcoholic do not exceed 2 GM/DAY., albuterol (PROAIR/PROVENTIL/VENTOLIN) HFA inhaler 2 puff 2 puff, Inhalation, Every 4 hours PRN, shortness of air, Starting [facility] 10/14/19 a t 0845, Criteria for use: NOT intubated with active or suspected Influenza or COVID-19 AND obstructive lung disease o r smoking history 10/18/2019 9:06 AM CDT 100 mg allopurinoL (ZYLOPRIM) tablet 100 mg Given 100 mg, Oral, Daily, First dose on Leela 6/4/20 at 0900 100 mg Given 10/17/2019 8:15 AM CDT 100 mg Given 10/16/2019 8:19 AM CDT 10/18/2019 6:12 AM CDT 200 mg amiodarone (CORDARONE) tablet 200 mg Given 200 mg, Oral, Every morning, First dose on Fri10/14/19 at 0700 200 mg Given 10/17/2019 6:20 AM CDT 200 mg Given 10/16/2019 5:42 AM CDT 10/18/2019 9:06 AM CDT 5 mg apixaban (ELIQUIS) tablet 5 mg Given 5 mg, Oral, 2 times daily, First dose o n Fri10/13/19 at 2230 5 mg Given 10/17/2019 8:52 PM CDT 5 mg Given 10/17/2019 8:15 AM CDT bisacodyL (DULCOLAX) suppository 10 mg 10 mg, Rectal, Daily PRN, constipation, constipation in patients who are NPO, i n patients who have nausea, or in patient s where there is any concern about ileus or bowel obstruction., Starting Fri10/13/19 at 2209, Hold these medications if patient has had loose stool or diarrhea within previous 24 hours., 10/18/2019 10:08 AM CDT 0.25 mcg calcitrioL (ROCALTROL) capsule 0.25 mcg Given 0.25 mcg, Oral, Every Fri-Fri-Fri, Firs t dose on Fri10/15/19 at 0900, Give with food to reduce GI upset, 0.25 mcg Given 10/15/2019 8:01 AM CDT 10/18/2019 9:06 AM CDT 2,000 Units cholecalciferol (vitamin D3) 1,000 Given units(25 mcg) tablet 2,000 Units 2,000 Units, Oral, Daily, First dose on Fri10/13/19 at 2230, 1000 units = 25 mcg , 2,000 Units Given 10/17/2019 8:15 AM CDT 2,000 Units Given 10/16/2019 8:19 AM CDT 10/18/2019 9:07 AM CDT 1,000 mcg cyanocobalamin (VITAMIN B-12) tablet Given 1,000 mcg 1,000 mcg, Oral, Daily, First dose on Fri10/14/19 at 0900 1,000 mcg Given 10/17/2019 8:16 AM CDT 1,000 mcg Given 10/16/2019 8:19 AM CDT docusate sodium (COLACE) capsule 100 mg 100 mg, Oral, 2 times daily PRN, stool softening, Starting Fri10/13/19 at 2209, DO NOT CRUSH OR CHEW., 10/18/2019 9:07 AM CDT 325 mg ferrous sulfate tablet 325 mg Given 325 mg, Oral, Daily with breakfast, First dose on Fri10/14/19 at 0730, 325 m g of ferrous sulfate contains 65 mg of iron, 325 mg Given 10/17/2019 8:16 AM CDT 325 mg Given 10/16/2019 8:19 AM CDT 10/18/2019 8:24 AM CDT 1 puff fluticasone furoate-vilanteroL (BREO Given ELLIPTA) 100-25 mcg/actuation inhaler 1 puff 1 puff, Inhalation, Daily, First dose o n Fri10/14/19 at 0900 1 puff Given 10/17/2019 8:40 AM CDT 1 puff Given 10/16/2019 8:51 AM CDT 10/18/2019 10:10 AM CDT 1 spray fluticasone propionate (FLONASE) 50 Given mcg/actuation nasal spray 1 spray 1 spray, Each Nare, Daily, First dose o n Fri10/13/19 at 2230 1 spray Given 10/17/2019 10:48 AM CDT 1 spray Given 10/16/2019 10:18 AM CDT 10/18/2019 6:12 AM CDT 1 mg folic acid (FOLVITE) tablet 1 mg Given 1 mg, Oral, Every morning, First dose o n Fri10/14/19 at 0700 1 mg Given 10/17/2019 6:20 AM CDT 1 mg Given 10/16/2019 5:42 AM CDT 10/14/2019 8:54 AM CDT 40 mg furosemide (LASIX) injection 40 mg Given 40 mg, Intravenous, Once, Fri10/14/19 at 0645, For 1 dose, Doses less than or equal to 160 mg: Maximum IV push rate 10-40 mg/min. Doses greater than 160 mg : Maximum IV push rate of 4 mg/min. If emergent, may administer at 10-40 mg/min., 10/16/2019 4:32 PM CDT 40 mg furosemide (LASIX) injection 40 mg Given 40 mg, Intravenous, 2 times daily, Firs t dose (after last modification) on [facility] 10/14/19 at 1700, Doses less than or equa l to 160 mg: Maximum IV push rate 10-40 mg/min. Doses greater than 160 mg: Maximum IV push rate of 4 mg/min. If emergent, may administer at 10-40 mg/min., 40 mg Given 10/16/2019 8:20 AM CDT 40 mg Given 10/15/2019 4:22 PM CDT 10/17/2019 8:21 AM CDT 40 mg furosemide (LASIX) tablet 40 mg Given 40 mg, Oral, Daily, First dose on [place] 10/17/19 at 0900 10/18/2019 9:07 AM CDT 80 mg furosemide (LASIX) tablet 80 mg Given 80 mg, Oral, 2 times daily, First dose (after last modification) on [place] 10/17/19 at 1700 80 mg Given 10/17/2019 4:44 PM CDT guaiFENesin (ROBITUSSIN) 100 mg/5 mL syrup 200 mg 200 mg, Oral, Every 4 hours PRN, cough, Starting Fri10/13/19 at 2209 10/14/2019 8:13 AM CDT 1 Device inhalation handihaler (tiotropium) Given Starting [facility] 10/14/19 at 0811, For 1 dose , Mejia Villalta: cabinet override, 10/17/2019 4:56 PM CDT 300 mg 76.67 mL/hr iron sucrose (VENOFER) 300 mg in sodium New Bag chloride 0.9 % (NS) 100 mL IVPB 300 mg, Intravenous, at 76.67 mL/hr, Every 3 days, First dose on [facility] 10/14/19 at 1600, For 3 doses, Infuse over a minimum of 90 minutes. REFRIGERATE, Diagnosis: Iron Deficiency Anemia secondary to inadequate dietary intake 300 mg 76.67 mL/hr New Bag 10/14/2019 7:57 PM CDT 10/16/2019 8:20 AM CDT 10 mg lisinopriL (PRINIVIL,ZESTRIL) tablet 10 Given mg 10 mg, Oral, Daily, First dose (after last modification) on Fri10/15/19 at 090 0 10 mg Given 10/15/2019 8:02 AM CDT 10/18/2019 9:07 AM CDT 10 mg lisinopriL (PRINIVIL,ZESTRIL) tablet 10 Given mg 10 mg, Oral, 2 times daily, First dose (after last modification) on Fri10/16/19 at 2100 10 mg Given 10/17/2019 8:52 PM CDT 10 mg Given 10/17/2019 8:16 AM CDT 10/14/2019 8:55 AM CDT 20 mg lisinopriL (PRINIVIL,ZESTRIL) tablet 20 Given mg 20 mg, Oral, Daily, First dose on [facility] 10/14/19 at 0900 melatonin tablet 3 mg 3 mg, Oral, Nightly PRN, sleep, Startin g Fri10/13/19 at 2208, Give 3-4 hours prio r to planned bedtime., 10/17/2019 8:52 PM CDT 25 mg metoprolol succinate (TOPROL-XL) 24 hr Given tablet 25 mg 25 mg, Oral, Nightly, First dose (after last modification) on Fri10/15/19 at 2100, Hold for SBP <90 DO NOT CRUSH OR CHEW., 25 mg Given 10/16/2019 9:26 PM CDT 25 mg Given 10/15/2019 10:14 PM CDT 10/18/2019 9:07 AM CDT 1 tablet multivitamin (THERAGRAN) tablet Given 1 tablet, Oral, Daily, First dose on 10/13/19 at 2230 1 tablet Given 10/17/2019 8:18 AM CDT 1 tablet Given 10/16/2019 8:20 AM CDT 10/18/2019 9:07 AM CDT 40 mg pantoprazole (PROTONIX) EC tablet 40 mg Given 40 mg, Oral, Daily, First dose on Fri10/13/19 at 2230, DO NOT CRUSH OR CHEW., 40 mg Given 10/17/2019 8:18 AM CDT 40 mg Given 10/16/2019 8:20 AM CDT 10/17/2019 6:32 PM CDT 17 g polyethylene glycol (GLYCOLAX) packet 17 Given g 17 g, Oral, Daily PRN, constipation, constipation, Starting Fri10/13/19 at 2209, Mix in 4-8 ounces of liquid. Hold these medications if patient has had loose stool or diarrhea within previous 24 hours., 10/18/2019 9:08 AM CDT 20 mEq potassium chloride (KLOR-CON) CR tablet Given 20 mEq 20 mEq, Oral, Daily, First dose on [facility] 10/14/19 at 0900, DO NOT CRUSH OR CHEW., 20 mEq Given 10/17/2019 8:18 AM CDT 20 mEq Given 10/16/2019 8:20 AM CDT 10/15/2019 5:59 AM CDT 5 mg prochlorperazine (COMPAZINE) injection 5 Given mg 5 mg, Intravenous, Every 6 hours PRN, nausea, vomiting, Starting Fri10/15/19 a t 0338 sodium chloride (OCEAN) 0.65 % nasal spray 1 spray 1 spray, Each Nare, As needed, irritation, Starting Fri10/13/19 at 2208 10/18/2019 8:24 AM CDT 18 mcg tiotropium (SPIRIVA) inhalation capsule Given 18 mcg 18 mcg, Inhalation, Daily, First dose o n [facility] 10/14/19 at 0900, For oral inhalation only. Capsule should not be swallowed. Must only use HandiHaler inhaler (obtai n from [facility] and use one per patient). To ensure drug delivery, the contents o f each capsule should be inhaled twice., 18 mcg Given 10/17/2019 8:40 AM CDT 18 mcg Given 10/16/2019 8:51 AM CDT documented in this encounter
--- OUTSIDE RECORDS SUMMARY | 2019-10-28 20:54 | XMS REPORT | Encounter Summary ---
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 documented as of this encounter Miscellaneous Notes * Telephone Encounter - Dorothy Hanna RN - 10/19/2019 1:11 PM CDT [facility] TCP - pt states doing "pretty good." Did weigh this AM. Reviewed HF teaching , diet, med changes. Has appt scheduled. Denies further questions. Discharged fr om program. documented in this encounter Plan of Treatment Care Team Description Date Type Specialty Dolores Eli RN ACNP [address] [facility] [address] [place] [address] [phone] 11/02/2019 Video Visit Cardiology documented as of this encounter Visit Diagnoses Not on filedocumented in this encounter
--- OUTSIDE RECORDS SUMMARY | 2019-10-28 20:54 | XMS REPORT | Encounter Summary ---
Author Author [facility] Organization [facility] Address Unknown Phone Unavailable Care Team Providers Care Vice President Of Compliance Name Role Phone Carlos Castellano PCP Encounter Details Care Team Description Date Type Department Inocente Oreilly MD [address] [facility] [address] [place] [address] [phone] 10/18/2019 Documentation [facility] [address] [facility] [address] [place], [place] [id number] Social History Date Tobacco Use Types Packs/Day [...] Specialty Dolores Eli RN ACNP [address] [facility] [address] [place] [address] [phone] 11/02/2019 Video Visit Cardiology documented as of this encounter Visit Diagnoses Not on filedocumented in this encounter
--- OUTSIDE RECORDS SUMMARY | 2019-10-28 20:54 | XMS REPORT | Clinical Summary ---
Author Author [facility] Organization [facility] Address Unknown Phone Unavailable Care Team Providers Care Real Estate Management Specialist Name Role Phone Gray Carlos PCP Allergies No Known Allergies Medications End Date Status Medication Sig Dispensed Refills Start Date Active apixaban (ELIQUIS) 5 mg Take 5 mg by 0 tablet mouth 2 (two) times a day. Active ferrous sulfate 325 (65 Take 65 mg by 0 FE) MG tablet mouth every 48 hours. Active calcitrioL (ROCALTROL) Take 0.25 mcg 0 0.25 MCG capsule by mouth every Friday, Friday and Friday. Active amiodarone (CORDARONE) Take 200 mg 0 200 MG tablet by mouth every morning. Active potassium chloride Take 20 mEq 0 (KLOR-CON) 10 MEQ CR by mouth tablet daily. Active allopurinoL (ZYLOPRIM) Take 100 mg 0 100 MG tablet by mouth daily. Active folic acid (FOLVITE) 1 MG Take 1 mg by 0 tablet mouth every morning. Active pantoprazole (PROTONIX) Take 40 mg by 0 40 MG tablet mouth daily. Active fluticasone propionate Use 1 spray 0 (FLONASE) 50 in each mcg/actuation nasal spray nostril daily. Active fluticasone Inhale 1 puff 0 propion-salmeteroL 2 (two) times (ADVAIR) 250-50 mcg/dose a day. DISKUS Active tiotropium (SPIRIVA) [address] Place 2.5 mcg 0 mcg inhalation capsule into inhaler and inhale daily. Active albuterol (ACCUNEB) 1.25 Inhale 1 0 mg/3 mL (0.042 %) ampule via nebulizer solution nebulizer every 6 (six) hours as needed for wheezing. Active ALBUTEROL INHL Inhale 90 mL 0 4 (four) times a day. Active clotrimazole-betamethason Apply 0 e (LOTRISONE) cream topically 2 (two) times a day. Active turmeric curcumin Take 560 mg 0 (THERACURMIN CARDIOTAB) by mouth 600 MG capsule daily. Active cholecalciferol, vitamin Take 2,000 0 D3, 1,000 units(25 mcg) Units by tablet mouth daily. Active cyanocobalamin (VITAMIN Take 1,000 0 B-12) 1000 MCG tablet mcg by mouth daily. Active therapeutic multivitamin Take 1 tablet 0 (THERAGRAN) tablet by mouth daily. Active furosemide (LASIX) 80 MG Take 1 tablet 60 tablet 0 tablet (80 mg total) 0 by mouth 2 (two) times a day. Further refills per cardiology Active lisinopriL Take 1 tablet 60 tablet 0 (PRINIVIL,ZESTRIL) 10 MG (10 mg total) 0 tabletIndications: Acute by mouth 2 on chronic combined (two) times a systolic and diastolic day. CHF (congestive heart failure) (FORMERLY [facility]) Active metoprolol succinate Take 1 tablet 30 tablet 0 (TOPROL-XL) 25 MG 24 hr (25 mg total) 0 tabletIndications: Acute by mouth on chronic combined nightly. systolic and diastolic CHF (congestive heart failure) (FORM[facility]) 10/18/2019 Discontinued (Stop Taking at Discharge) furosemide (LASIX) 40 MG Take 40 mg by 0 tablet mouth daily. 10/13/2019 Discontinued metoprolol succinate Take 1 tablet 30 tablet 11 (TOPROL-XL) 50 MG 24 hr (50 mg total) 0 tablet by mouth daily. 10/18/2019 Discontinued (Stop Taking at Discharge) lisinopriL Take 1 tablet 30 tablet 11 (PRINIVIL,ZESTRIL) 20 MG (20 mg total) 0 tablet by mouth daily. Active Problems Problem Noted Date Hyponatremia 10/15/2019 Last Assessment & Plan: -Sodium improved to 136 today. -Monitor with diuresis. medical terminologist current use of antiarrhythmic drug 020 Chronic respiratory failure with hypoxia 10/13/2019 Last Assessment & Plan: -Remains stable on 3 L oxygen which is her baseline requirement. -Continue home bronchodilators. Nonrheumatic mitral valve regurgitation 10/13/2019 Last Assessment & Plan: -Cardiology following; patient has appo intment scheduled later this coming week to discuss MitraClip. Chronic anemia 10/13/2019 Last Assessment & Plan: -Hemoglobin up to 9.9 today. -History of chronic anemia; iron studie s consistent with severe iron deficiency. -Continue IV Venofer every 3 days. -Oral iron supplementation on discharge . Tricuspid regurgitation 09/20/2019 NICM (nonischemic cardiomyopathy) 09/20/2019 Acute on chronic combined systolic and diastolic CHF (congestive heart 09/20/2019 failure) Last Assessment & Plan: -Responded well to IV diuresis and karimi sitioned to p.o. per cardiology today. -Cardiology on board; appreciate recomm endations. -Continue furosemide 80 mg twice daily on discharge. -Telemetry monitoring. -Daily weights and monitor I's and O's. -ICD in place. -Patient did have some asymptomatic low blood pressure again this morning. Would like to watch her for 1 more day but likely discharge home tomorrow. Stage 4 chronic kidney disease 09/20/2019 Last Assessment & Plan: -Creatinine 2.1 today which is at basel ine. -Renally dose all medications and avoid nephrotoxic agents. -Will monitor renal function closely wi th diuresis. PAF (paroxysmal atrial fibrillation) 09/20/2019 Last Assessment & Plan: -Continue amiodarone and metoprolol.. -Continue anticoagulation with apixaban . Chronic anticoagulation 09/20/2019 Implantable cardioverter-defibrillator (ICD) in situ 09/20/2019 Overview: Dual Chamber - NICM Obstructive sleep apnea 09/20/2019 Last Assessment & Plan: -Continue CPAP nightly. Near syncope 09/20/2019 Pulmonary hypertension 09/20/2019 Carotid artery disease 09/20/2019 Essential hypertension Last Assessment & Plan: -Continue metoprolol and lisinopril (pe r cardiology can switch lisinopril to 20 mg daily on discharge). Encounters Care Team Description Date Type Specialty Dolores Eli RN ACNP 10/26/2019 Documentation Cardiology Inocente Oreilly MD Acute on chronic combined systolic and d iastolic CHF (congestive heart failure) (HCC) (Primary Dx); Nonrheumatic tricuspid valve regurgitation; Obstructive sleep apnea; NICM (nonischemic cardiomyopathy) ([facility]); Nonrheumatic mitral valve regurgitation 10/22/2019 Video Visit Cardiology Lorraine Reid RN 10/20/2019 Abstract Cardiology Dorothy Hanna RN 10/19/2019 Telephone Inocente Oreilly MD 10/18/2019 Documentation Cardiology Inocente Oreilly MD 10/15/2019 Documentation Cardiology Hospitalist, Physician Carey Cervantes MD Fuller, David, MD Tovrea, Teresa, DO Acute on chronic combined systolic and d iastolic CHF (congestive heart failure) (HCC) (Primary Dx); Hyponatremia; NICM (nonischemic cardiomyopathy) (HCC); Nonrheumatic mitral valve regurgitation; Nonrheumatic tricuspid valve regurgitation; residential current use of antiarrhythmic drug; Stage 4 chronic kidney disease (HCC); Chronic anemia; Chronic anticoagulation; Obstructive sleep apnea; PAF (paroxysmal atrial fibrillation) (HCC) 10/13/2019 [facility] Cardiothoracic Surg tiffanie - Encounter 10/18/2019 Jr Christopher RN 10/06/2019 Telephone Cardiology Suzette Wilson MD Saxon, John, MD 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 (HCC) (Primary Dx); Severe mitral regurgitation; Stage 3 chronic kidney disease (HCC); PAF (paroxysmal atrial fibrillation) ([facility]); Chronic anticoagulation; Nonrheumatic mitral valve regurgitation 09/22/2019 Hospital Valve and Vascular Encounter Elvis Melendez MD Allen, Keith B, MD Mitral valve insufficiency, unspecified etiology (Primary Dx); Nonrheumatic mitral valve regurgitation; Nonrheumatic tricuspid valve regurgitation; Chronic combined systolic (congestive) and diastolic (congestive) heart failure (HCC) 09/22/2019 Hospital Valve and Vascular Encounter Tomi Peters MD Covington, Robert M, MD 09/22/2019 Anesthesia Cardiology Event Elvis Melendez MD Severe mitral regurgitation 09/22/2019 [facility] Cardiothoracic Surg tiffanie Encounter Florencia Le LPN TMVR follow up 09/22/2019 Telephone Valve and Vascular Florencia Le LPN Update Records 09/22/2019 Telephone Valve and Vascular Soila Rangel RN 09/20/2019 Abstract Cardiology Florencia Le LPN Procedure Instructions 09/13/2019 Telephone Valve and Vascular Sports Complex Attendant, Florencia, SPAGHETTI PRESS HELPER Severe mitral regurgitation (Primary Dx) 09/13/2019 Orders for Cardiology Hospital Florencia Le LPN TMVR Postponed 07/28/2019 Telephone Valve and Vascular from Last 3 Months Family History Medical History Relation Name Comments Hypertension Father Relation Name Status Comments Father Social History Date Tobacco Use Types Packs/Day Years Used Never Smoker Smokeless Tobacco: Never Used Drinks/Week oz/Week Comments Alcohol Use 2 Shots of liquor 2.0 Yes Sex Assigned at Date Recorded Not on file Industry Job Start Date Occupation Not on file Not on file Not on file Travel End Travel History Travel Start No recent travel history available. Last Filed Vital Signs Reading Time Taken Comments Vital Sign 109/62 10/18/2019 11:24 AM CDT Blood Pressure 71 10/18/2019 11:24 AM CDT Pulse 36.6 C (97.8 F) 10/18/2019 11:24 AM CDT Temperature 16 10/18/2019 11:24 AM CDT Respiratory Rate 99% 10/18/2019 11:24 AM CDT Oxygen Saturation - - Inhaled Oxygen Concentration 97.9 kg (215 lb 12.8 oz) 10/18/2019 3:21 AM CDT Weight 165.1 cm (5' 5") 09/22/2019 2:03 PM CDT Height 35.91 09/22/2019 2:03 PM CDT Body Mass Index Plan of Treatment Care Team Description Date Type Specialty Dolores Eli, RN ACNP [address] [place] [address] [phone] 11/02/2019 Video Visit Cardiology Health Maintenance Due Date Last Done Comments Hepatitis C Screen 1950 Td # 1950 Colorectal Screening via 07/25/2001 Colonoscopy Mammogram Screening 07/25/2001 Zoster Vaccine# (1 of 2) 07/25/2001 Depression Screening 07/25/2016 PHQ-9 # Osteoporosis Screening 07/25/2016 Pneumococcal Vaccine: 65+ 07/25/2016 Years (1 of 1 - PPSV23) Fall Risk Assessment # 10/17/2020 10/18/2019 Influenza Vaccine Completed 05/27/2019 Procedures Comments Procedure Name Priority Date/Time Associated Diag nosis RENAL PANEL Routine 10/18/2019 1:08 AM CDT CBC AND DIFF (MANUAL DIFF Routine 10/17/2019 IF NECESSARY) 12:24 AM CDT RENAL PANEL Routine 10/17/2019 12:24 AM CDT CBC AND DIFF (MANUAL DIFF Routine 10/16/2019 IF NECESSARY) 2:21 AM CDT RENAL PANEL Routine 10/16/2019 2:21 AM CDT MAGNESIUM Routine 10/15/2019 12:53 AM CDT RENAL PANEL Routine 10/15/2019 12:53 AM CDT XR CHEST 2 VIEWS (PA AND Routine 10/14/2019 LATERAL) 7:19 AM CDT TROPONIN Timed 10/14/2019 4:02 AM CDT IRON/TRANSFERRIN Routine 10/14/2019 1:21 AM CDT FERRITIN Routine 10/14/2019 1:21 AM CDT B12/FOLATE Routine 10/14/2019 1:21 AM CDT NTPROBNP Routine 10/14/2019 1:21 AM CDT MAGNESIUM Routine 10/14/2019 1:21 AM CDT COMPREHENSIVE METABOLIC Routine 10/14/2019 PANEL 1:21 AM CDT CBC AND DIFF (MANUAL DIFF Routine 10/14/2019 IF NECESSARY) 1:21 AM CDT TROPONIN Timed 10/14/2019 1:21 AM CDT ECG Routine 10/14/2019 12:03 AM CDT SARS-COV-2, EMELIA Routine 10/13/2019 (COVID-19) 10:45 PM CDT TROPONIN STAT 10/13/2019 10:34 PM CDT AMB REFERRAL TO Routine 09/24/2019 Severe mitral [facility] 8:40 AM CDT regurgitation ECHO TRANSESOPHAGEAL WITH Routine 09/22/2019 Tonya kamala mitral COLOR FLOW AND DOPPLER 10:24 AM CDT regurgitation from Last 3 Months Results * Renal Panel (10/18/2019 1:08 AM CDT) Only the most recent of 4 results within the time period is included. Sodium 134 133 - 147 MEQ/L [facility] Potassium 4.9 3.5 - 5.3 MEQ/L [facility] Chloride 92 (L) 96 - 112 MEQ/L [facility] Carbon Dioxide 36 (H) 20 - 32 MEQ/L [facility] Anion Gap 6 5 - 17 [facility] Calcium 9.3 8.4 - 10.5 mg/dL [facility] Glucose 96 70 - 100 mg/dL [facility] Albumin 3.5 3.5 - 5.0 g/dL [facility] Blood Urea 56 (H) 7 - 26 mg/dL [facility] Creatinine 1.9 (H) 0.4 - 1.1 mg/dL [facility] eGFR Female AA 32 (L) 60 - 200 [facility] mL/min/1.73sq [facility] eGFR Female 26 (L) 60 - 200 [facility] Non-AA mL/min/1.73sq [facility] Phosphorus 4.3 2.5 - 4.5 mg/dL [facility] Specimen Blood Performing Organization Address City/State/Zipcode Ph one Number [address] [address] LABORATORIES [facility] [address] [place] [address] * CBC and Diff (manual diff if necessary) (10/17/2019 12:24 AM CDT) Only the most recent of 3 results within the time period is included. WBC 6.51 4.00 - 11.00 TH/uL [facility] RBC 3.55 (L) 4.00 - 5.00 MIL/uL [facility] Hemoglobin 9.9 (L) 12.0 - 15.0 g/dL [facility] Hematocrit 32 (L) 36 - 45 % [facility] MCV 89 80 - 99 fL [facility] MCH 28 27 - 34 pg [facility] MCHC 31 (L) 32 - 36 % [facility] RDW 15.9 (H) 11.5 - 14.5 % [facility] Platelet Count 214 140 - 400 TH/uL [facility] MPV 11.0 9.4 - 12.3 fL [facility] Nucleated RBCs 0 0 - 0 /100 [facility] % Neutrophils 75 45 - 78 % [facility] %Lymphocytes 10 (L) 15 - 47 % [facility] %Monocytes 12 0 - 12 % [facility] %Eosinophils 2 0 - 7 % [facility] %Basophils 0 0 - 2 % [facility] % Imm Grans 0 0 - 1 % [facility] # Granulocytes 4.92 1.70 - 6.80 TH/uL [facility] # Lymphocytes 0.64 (L) 1.00 - 3.30 TH/uL [facility] # Monocytes 0.79 0.20 - 0.90 TH/uL [facility] # Eosinophils 0.14 0.00 - 0.40 TH/uL [facility] # Basophils 0.02 0.00 - 0.10 TH/uL [facility] Specimen Blood Performing Organization Address City/[facility] Ph one Number [address] [address] LABORATORIES [facility] [address] [place] [address] * Magnesium (10/15/2019 12:53 AM CDT) Only the most recent of 2 results within the time period is included. Magnesium 2.3 1.4 - 2.7 mg/dL [facility] Specimen Blood Performing Organization Address City/[facility] Ph one Number [facility] [address] [place] [address] LABORATORIES [facility] [address] [place] [address] * XR Chest 2 views (PA and lateral) (10/14/2019 7:19 AM CDT) Specimen Impressions Performed At 1. Left pectoral dual-chamber transvenous pacer/ICD. NELIA 2. Asymmetric pulmonary edema. No conso lidation. READING SITE: [facility] Narrative Performed At Patient: MALATHI HURLEY Sex#: F #: 1950 Ruthy# : [id number] Location: [place] [id number] Acces kristofer#: [id number] Procedure Requested: [id number] XR CHEST 2 VIEWS (PA AND LATERAL) [...] MALATHI HURLEY Sex#: F #: 1950 Ruthy#: [id number] Location: [address] H415-01 Procedure Requested: [id number] XR CHEST 2 VIEWS (PA AND LATERAL) Reason for Exam: chf Exam Ordered: 10/14/2019 0800 Exam Date/Time: 10/14/2019 0719 Begin exam date/time: [...] pulmonary edema. No consol idation. READING SITE: [facility] Performing Organization Address [facility] one Number NELIA * Troponin - 3 and 6 hr (10/14/2019 4:02 AM CDT) Only the most recent of 3 results within the time period is included. Troponin 0.05 (H) 0.00 - 0.03 ng/mL [facility] Comment: Hospital Lab Troponin Value Interpretation 0.00 - 0.03 Healthy 0.04 - 0.12 Increased Cardiac Risk >0.12 Myocardial Infarction Troponin may not become elevated until 6 to 8 hours after onset of symptoms. Specimen Blood Performing Organization Address [facility] [place] [address] LABORATORIES [facility] [address] [place] [address] * NTproBNP (10/14/2019 1:21 AM CDT) NTproBNP 7,470 pg/mL [facility] Comment: Hospital Lab NT-proBNP Reference Ranges: <50 yr <450 pg/mL 50-75 yr <900 pg/mL >75 yr <1800 pg/mL A cutoff value of 1200 pg/mL is recommended in patients 50 to 70 years of age with a GFR between 30 and 60. NT-proBNP is unreliable in patients with GFR <30. Specimen Blood Performing Organization Address [facility] one Number [address] [address] LABORATORIES [facility] [address] [place] [address] * Iron/Transferrin (10/14/2019 1:21 AM CDT) Iron 46 (L) 50 - 180 ug/dL [facility] Transferrin 305 206 - 381 mg/dL [facility] Total 366 204 - 408 ug/dL [facility] Iron-Binding [facility] Capacity Iron/Transferri 13 (L) 15 - 50 % [facility] n % Saturation [facility] Specimen Blood Performing Organization Address City/[facility]/Zipcode Ph one Number [address] [address] LABORATORIES [facility] [address] [place] [address] * Ferritin (10/14/2019 1:21 AM CDT) Ferritin 63 20 - 200 ng/mL [facility] Specimen Blood Performing Organization Address City/[facility]/Zipcode Ph one Number [address] [address] LABORATORIES [facility] [address] [place] [address] * Comprehensive Metabolic Panel (10/14/2019 1:21 AM CDT) Sodium 133 133 - 147 MEQ/L [facility] Potassium 4.8 3.5 - 5.3 MEQ/L [facility] Chloride 98 96 - 112 MEQ/L [facility] Carbon Dioxide 29 20 - 32 MEQ/L [facility] Anion Gap 6 5 - 17 [facility] Calcium 9.0 8.4 - 10.5 mg/dL [facility] Glucose 89 70 - 100 mg/dL [facility] Protein Total 6.8 6.0 - 8.2 g/dL [facility] Albumin 3.6 3.5 - 5.0 g/dL [facility] Alkaline 98 42 - 140 IU/L [facility] Alanine 45 (H) 0 - 34 IU/L [facility] e Aspartate 37 15 - 46 IU/L [facility] e Bilirubin Total 1.0 0.2 - 1.3 mg/dL [facility] Blood Urea 46 (H) 7 - 26 mg/dL [facility] Creatinine 2.2 (H) 0.4 - 1.1 mg/dL [facility] eGFR Female AA 27 (L) 60 - 200 [facility] mL/min/1.73sq Hospital Lab eGFR Female 22 (L) 60 - 200 [facility] Non-AA mL/min/1.73sq Hospital Lab Specimen Blood Performing Organization Address City/[facility] Ph one Number [facility] [address] [place] [address] LABORATORIES [facility] [address] [place] [address] * B12/Folate (10/14/2019 1:21 AM CDT) VITAMIN B12 >1000 (H) 239 - 931 pg/mL [facility] Folate >20.0 (H) 3.4 - 20.0 ng/mL [facility] Specimen Blood Performing Organization Address [facility] Ph one Number [facility] [address] [place] [address] LABORATORIES [facility] [address] [place] [address] * Electrocardiogram (ECG) (10/14/2019 12:03 AM CDT) QRSd 148 TRACEMASTER QT 436 TRACEMASTER QTC 471 TRACEMASTER ECGHR 70 TRACEMASTER ECGPR 204 TRACEMASTER Specimen Narrative [facility]formed At [facility] Test Date: 2019-10-14 Pat Name: MALATHI HURLEY Department: [address] Room: [facility] Gender: Female Continuous [employer] Supervisor: [id number] : 1950 Requested By: ALEJANDRO LAZARO Order Number: [id number] Reading MD: Brenden Morales Measurements Intervals [place] Rate: 70 P: RI: 204 QRS: -75 QRSD: 148 T: 41 QT: 436 QTc: 471 Interpretive Statements ATRIAL-PACED RHYTHM NONSPECIFIC IVCD WITH LAD LEFT VENTRICULAR HYPERTROPHY Electronically Signed On 10-14-2019 15:38 :25 CDT by Brenden Morales Procedure Note Interface, External Ris In - 10/14/2019 3:38 PM CDT [facility] [place] Test Date: 2019-10-14 Pat Name: MALATHI HURLEY Department: [facility] H4S Room: H415 Gender: Female [employer] Supervisor: [id number] : 1950 Requested By: ALEJANDRO LAZARO Order Number: [id number] Reading MD: Brenden Morales Measurements Intervals [place] Rate: 70 P: RI: 204 QRS: -75 QRSD: 148 T: 41 QT: 436 QTc: 471 Interpretive Statements ATRIAL-PACED RHYTHM NONSPECIFIC IVCD WITH LAD LEFT VENTRICULAR HYPERTROPHY Electronically Signed On 10-14-2019 15:38:25 CDT by Brenden Morales Performing Organization Address City/[facility] Ph one Number TRACEMASTER * SARS-COV-2, EMELIA (COVID-19) (10/13/2019 10:45 PM CDT) Overall Result Not Detected Not Detected [facility] Comment: Hospital Lab This test has been authorized by the FDA under an Emergency Use Authorization (EUA) for use by authorized laboratories. SARS-CoV-2, EMELIA Negative Negative [facility] [place] SARS RNA Negative Negative [facility] Specimen NASOPHARYNGEAL SWAB Performing Organization Address City/[facility] [place] [address] LABORATORIES [facility] [address] [place] [phone] * [facility]B RE[facility]ERRAL [facility] (09/24/2019 8:40 AM CDT) Narrative Performed At This result has an attachment that is n ot available. * Echo Transesophageal with Doppler and Color Flow (09/22/2019 10:24 AM CDT) Specimen Impressions Performed At 1. Mild left ventricular dilatation with mildly reduced left ventricular PROSOLV systolic function, with an estimated ej ection fraction of 40%. 2. Normal right ventricular size w ith mildly reduced systolic function. 3. Moderate to severe mitral regur gitation due to restriction motion of the posterior leaflet. 4. Moderate to severe tricuspid re gurgitation. 5. Severe pulmonary hypertension, estimated PASP = 80 mmHg. Jonathan Garrido MD (Electronically Signed) Final Date: 22 Sep 2019 12:49 Amended: 22 Sep 2019 12:49 Narrative Performed At [facility] Transesophageal Echocardiogram Report Name: MALATHI HURLEY Date: 09/22/2019 09:13 Chart #: [id number] : 1950 Gender F Location: [facility] OP Sono: npfe ffer : Age: 69 Room #: OP Referring: ELVIS MELENDEZ MD Fellow: Indication:Severe mitral regurgita tion Procedure: The patient was kept VIOLIN MECHANIC O after midnight. Informed consent was obtained. The procedure was performed in the P ACU. The patient was sedated with propofol by the anesthesia service. T he GABRIELLA probe was passed w ithout difficulty. The patient tolerated the procedure and the probe w as withdrawn. BP: 117 / 64 HR: 70 Ht: 65 Wt: 219 BSA 2.13 m2 : Measurements TRICUSPID VALVE DOPPLER RV Systolic Pressure 79.9 mmHg CELESTINO Thrombus: None Interatrial septum: Normal CELESTINO Emptying Velocity: 55 Descending Aortic plaque:Mild LA spontaneous echo No ne Aortic arch plaque: Mild contrast: R to L shunt at atrial septum:None Rhythm: Sinus WALL SEGMENT ANALYSIS: ROUTINE LVSI : 2 %FM : 0 LAD : 2 LCX : 2 RCA : 2 Hypokinetic - Mid Ante rior Septum, Basal Anterior Septum, B karoline Posterior, Mid Posterior, Basal Septum, M id Septum, Apical Septum, Apical Lateral, M id Lateral, Basal Lateral, Basal Inferior, M id Inferior, Apical Inferior, Apical Anterior, M id Anterior, Basal Anterior, [place] FINDINGS Mildly reduced left ventricular sy stolic function, with an estimated ejection fraction of 40%. Wall thickness appears normal. Normal dimensions of the ascending aorta. Normal wall motion. Mild left ventricular dilatation. Normal right ventricular size with mildly reduced systolic function. Device wire noted in the right hea rt. Severe right and left atrial dilat ation. Moderate diastolic dysfunction - e levated mean LA pressure with reduced LV relaxation. Normal aortic valve with trivial r egurgitation. Moderate to severe, eccentric, pos teriorly-directed mitral valve regurgitation due to restricted posteri or leaflet motion. 3D MVA = 0.6 cm2. EROA = 0. 38 cm2, RV 57 ml. Pulmonary vein flow blunting without reversal. E velocity = 1.2 cm/s. EROA and color Doppler meth ods may underestimate severity due to eccentricity of jet. Normal pulmonic valve with trivial regurgitation. Moderate to severe tricuspid valve regurgitation. Estimated PA pressure = 80 mmHg. No pericardial effusion. IVC was not visualized. No thrombus seen in the left atria l appendage. Interatrial septum is intact. No evidence for right to left shun ting, following an injection of agitated saline. Mild atherosclerotic plaque in the descending aorta. No intracardiac masses or thrombi. Procedure Note Interface, External Ris In - 09/22/2019 12:49 PM CDT Transesophageal Echocardiogram Report Name: MALATHI HURLEY Date: 09/22/2019 09:13 Chart #: [id number] : 1950 Gender F Location: [facility] OP Sono: npfeffer : Age: 69 Room #: OP Referring: ELVIS MELENDEZ MD Fellow: Indication:Severe mitral regurgitation Procedure: The patient was kept NPO after midnight. Informed consent was obtained. The procedure was performed in the PACU. The patient was sedated with propofol by the anesthesia service. The GABRIELLA probe was passed without difficulty. The patient tolerated the procedure and the probe was withdrawn. BP: 117 / 64 HR: 70 Ht: 65 Wt: 219 BSA 2.13 m2 : Measurements TRICUSPID VALVE DOPPLER RV Systolic Pressure 79.9 mmHg CELESTINO Thrombus: None Interatrial septum: Normal CELESTINO Emptying Velocity: 55 Descending Aortic plaque:Mild LA spontaneous echo None Aortic arch plaque: Mild contrast: R to L shunt at atrial septum:None Rhythm: Sinus WALL SEGMENT ANALYSIS: ROUTINE LVSI : 2 %FM : 0 LAD : 2 LCX : 2 RCA : 2 Hypokinetic - Mid Anterior Septum, Basal Anterior Septum, Basal Posterior, Mid Posterior, Basal Septum, Mid Septum, Apical Septum, Apical Lateral, Mid Lateral, Basal Lateral, Basal Inferior, Mid Inferior, Apical Inferior, Apical Anterior, Mid Anterior, Basal Anterior, [place] FINDINGS Mildly reduced left ventricular systolic function, with an estimated ejection fraction of 40%. Wall thickness appears normal. Normal dimensions of the ascending aorta. Normal wall motion. Mild left ventricular dilatation. Normal right ventricular size with mildly reduced systolic function. Device wire noted in the right heart. Severe right and left atrial dilatation. Moderate diastolic dysfunction - elevated mean LA pressure with reduced LV relaxation. Normal aortic valve with trivial regurgitation. Moderate to severe, eccentric, posteriorly-directed mitral valve regurgitation due to restricted posterior leaflet motion. 3D MVA = 0.6 cm2. EROA = 0.38 cm2, RV 57 ml. Pulmonary vein flow blunting without reversal. E velocity = 1.2 cm/s. EROA and color Doppler methods may underestimate severity due to eccentricity of jet. Normal pulmonic valve with trivial regurgitation. Moderate to severe tricuspid valve regurgitation. Estimated PA pressure = 80 mmHg. No pericardial effusion. IVC was not visualized. No thrombus seen in the left atrial appendage. Interatrial septum is intact. No evidence for right to left shunting, following an injection of agitated saline. Mild atherosclerotic plaque in the descending aorta. No intracardiac masses or thrombi. IMPRESSION 1. Mild left ventricular dilatation with mildly reduced left ventricular systolic function, with an estimated ejection fraction of 40%. 2. Normal right ventricular size with mildly reduced systolic function. 3. Moderate to severe mitral regurgitation due to restriction motion of the posterior leaflet. 4. Moderate to severe tricuspid regurgitation. 5. Severe pulmonary hypertension, estimated PASP = 80 mmHg. Jonathan Garrido MD (Electronically Signed) Final Date: 22 Sep 2019 12:49 Amended: 22 Sep 2019 12:49 Performing Organization Address City/State/[facility] Ph one Number PROSOLV from Last 3 Months Insurance Type Payer Benefit Subscriber ID Effective Phone Address Plan / Dates Group [facility] OUT OF xxxxxxxxxxxx [id number] AREA PREF resent CARE Medicare MEDICARE MEDICARE xxxxxxxxxxx 2016-P [place] PART A [place], [place] Malathi Hurley Personal/F Self 1950 [id number] (Home) [place] [id number] Advance Directives For more information, please contact: [phone] Patient Systems Requirements Planner Explanation Type Date Recorded Health Care Directive Date Inactivated Comments Code Status Date Activated 10/18/2019 5:37 PM Full Code 10/13/2019 10:09 PM
--- OUTSIDE RECORDS SUMMARY | 2019-10-28 20:54 | XMS REPORT | Encounter Summary ---
Author Author [facility] Organization [facility] Address Unknown Phone Unavailable Care Team Providers Care Marketing Campaign Analyst Name Role Phone Carlos Castellano PCP Encounter Details Care Team Description Date Type Department Dolores Eli RN ACNP [address] [facility] [address] [place] [address] [phone] 10/26/2019 Documentation [facility] [address] [facility] [address] [place] [address] Social History Date Tobacco Use Types Packs/Day [...] Type Specialty Dolores Eli RN ACNP [address] [facility] [address] [place] [address] [phone] 11/02/2019 Video Visit Cardiology documented as of this encounter Visit Diagnoses Not on filedocumented in this encounter
--- OUTSIDE RECORDS SUMMARY | 2019-10-28 20:55 | XMS REPORT | Encounter Summary ---
Author Author [facility] Organization [facility] Address Unknown Phone Unavailable Care Team Providers Care Sonography Technologist Name Role Phone PCP Unavailable Encounter Details Care Team Description Date Type Department Blending Supervisor, BLAIRE Don Mitral valve insufficiency, unspecified etiology (Primary Dx) 07/14/[address] Orders [address] [address] Social History Date Tobacco Use Types Packs/Day Years Used Never Assessed Sex Assigned at Date Recorded Not on file Industry Job Start Date Occupation Not on file Not on file Not on file Travel End Travel History Travel Start No recent travel history available. documented as of this encounter Plan of Treatment Care Team Description Date Type Specialty Dolores Eli RN ACNP [address] [facility] [address] [place] [address] [phone] 11/02/2019 Video Visit Cardiology documented as of this encounter Visit Diagnoses Diagnosis Mitral valve insufficiency, unspecified etiology documented in this encounter
--- OUTSIDE RECORDS SUMMARY | 2019-10-28 20:55 | XMS REPORT | Encounter Summary ---
Author Author [facility] Organization [facility] Address Unknown Phone Unavailable Care Team Providers Care Director Of Web Marketing Name Role Phone Carlos Castellano PCP Encounter Details Care Team Description Date Type Department Soila Rangel RN 09/20/2019 Abstract [facility] [address] [place] [address] Social History Date Tobacco Use Types Packs/Day [...] Specialty Dolores Eli RN ACNP [address] [facility] [address] [place] [address] [phone] 11/02/2019 Video Visit Cardiology documented as of this encounter Visit Diagnoses Diagnosis Implantable cardioverter-defibrillator (ICD) in situ Essential hypertension Unspecified essential hypertension Obstructive sleep apnea Obstructive sleep apnea (adult) (pediat any) Near syncope Sarcoidosis Pulmonary hypertension (HCC) Other chronic pulmonary heart diseases documented in this encounter
--- OUTSIDE RECORDS SUMMARY | 2019-10-28 20:55 | XMS REPORT | Encounter Summary ---
Author Author [facility] Organization [facility] Address Unknown Phone Unavailable Care Team Providers Care Building Construction Superintendent Name Role Phone PCP Unavailable Encounter Details Care Team Description Date Type Department Scanning, Interface 07/06/2019 Documentation [facility] [address] [id number] Social History Date Tobacco Use Types Packs/Day [...] Specialty Dolores Eli RN ACNP [address] [facility] [address] [place], [place] [id number] 11/02/2019 Video Visit Cardiology documented as of this encounter Visit Diagnoses Not on filedocumented in this encounter
--- OUTSIDE RECORDS SUMMARY | 2019-10-28 20:55 | XMS REPORT | Encounter Summary ---
Author Author [facility] Organization [facility] Address Unknown Phone Unavailable Care Team Providers Care Acid Changer Name Role Phone Carlos Castellano PCP Encounter Details Care Team Description Date Type Department Inocente Oreilly MD [address] [facility] [address] [place] [address] [phone] 10/15/2019 Documentation [facility] [address] [facility] [address] [place], [place] [id number] Social History Date Tobacco Use Types Packs/Day [...] Specialty Dolores Eli RN ACNP [address] [facility] [address] [place] [address] [phone] 11/02/2019 Video Visit Cardiology documented as of this encounter Visit Diagnoses Not on filedocumented in this encounter
--- OUTSIDE RECORDS SUMMARY | 2019-10-28 20:55 | XMS REPORT | Encounter Summary ---
Author Author [facility] Organization [facility] Address Unknown Phone Unavailable Care Team Providers Care Preschool Principal Name Role Phone Carlos Castellano PCP Encounter Details Care Team Description Date Type Department Tomi Peters MD [address] [facility] [place] [address] [phone] Antonio Leung MD [address] [place] [address] [phone] 09/22/2019 Anesthesia [facility] al Event [address] [place], [place] [id number] Anesthesia Record Responsible Anesthesiologist Anesthesia Start Time Anesthesi a Stop Time Procedure Name Tomi Peters MD 09/22/19 0935 09/22/19 1014 ECHO TRANSESOPHAGEAL WITH DOPPLER AND COLOR FLOW Date Time Event Comment 839 AN Equip Check 2019 907 Anesthesia Initial Contact 0935 In room 0935 An Start 0935 An Start Data 0936 PPE Statement Despite only listin g the logged in provider by name, this statement applies to all anesthesia providers present at this time: PPE Statement: Yisel Rolle RN OCEANOLOGIST used Red precautions (N 95 mask, eye protection, gown, and gloves). 0937 0937 Pt eval immediately prior to anesthesia 0937 An Induction 0939 Procedure start - Primary Case 1010 Procedure stop - Primary case 1012 an stop data 1012 Out of Room 1014 Handoff I completed my SBAR handoff to the receiving nurse in the PACU/ICU/OB Patient and PACU/ICU/OB nurse identifie d Discussed patient medical history Discussed procedure Reviewed intraopera tive anesthetic management and issues/concerns Discussed expectation f or early post-procedure period Questions from PACU/ICU/OB team address ed 1014 An Stop Meds Name Total propofol 10mg/mL 50 mg propofol infusion 10mg/mL 377.34 mg lidocaine 1% (PF) 50 mg sodium chloride 0.9% 200 mL * Name Cell Saver Blood Intake O2 N2O Air EtSEVO EtISO EtDES EtN2O * No blood administrations on file. Removal Type Details Placement 09/22/19 1149 by Rocio Pang RN Peripheral Date: 09/22/19; Time: 854; Size 09/21 0855 by Rocio IV (gauge): 20 G; Orientation: Right; Jimenez venegas RN Location: Forearm; Site Prep: Chlorhexidine; Local Anesthetic: None; Insertion Attempts: 1; Inserted By: HARRIET Ybarra; Removal Date: 09/22/19; Removal Time: 114 documented in this encounter Social History Date Tobacco Use Types Packs/Day [...] as of this encounter Miscellaneous Notes * Anesthesia Postprocedure Evaluation - Tomi Peters MD - 09/22/2019 12:00 PM CDT Anesthesia Post Evaluation * No procedures listed * Surgeon: * No surgeons listed * Patient Evaluated in: PACU Patient Participation: complete - patient participated Level of Consciousness: awake and alert Pain Score: 0, with adequate pain management. Airway Patency: patent Respiratory Status: spontaneous ventilation, nonlabored ventilation and nasal ca nnula Cardiovascular Status: hemodynamically stable Postoperative Hydration: euvolemic Postop Nausea/Vomiting: no PONV in PACU Anesthetic Complications: No Appropriate for discharge from anesthesia care, no apparent anesthesia related c omplication ANE Post Eval Vitals Most Recent Value BP (!) 114/92 filed at 09/22/2019 1145 Pulse 70 filed at 09/22/2019 1145 Temp 36.8 C (98.3 F) filed at 09/22/2019 1012 Resp 30 filed at 09/22/2019 1145 SpO2 94 % filed at 09/22/2019 1145 * Anesthesia Preprocedure Evaluation - Tomi Peters MD - 09/22/2019 7:56 AM CDT Anesthesia Evaluation Patient summary and ECG reviewed No history of alcohol use and substance abuse. Airway Mallampati: II TM distance: >3 FB Neck ROM: full Adequate mouth opening No prominent facial hair Dental - normal exam Pulmonary Lung sounds: normal, (+) asthma, sleep apnea , Comment: Sarcoid Cardiovascular Rhythm: regular (+) hypertension, valvular problems/murmurs MR (TR), , active defibrillator , CHF, dysrhythmias atrial fib/flutter, Comment: Pulmonary HTN Severe MR and TR by TTE Neuro/Psych GI/Hepatic/Renal (+) chronic renal disease CKD Endo/Other Abdominal (+) obese Obstetrics HEENT Musculoskeletal Hematology/Oncology (+) anemia, Anesthesia Plan ASA 3 Type: MAC () Plan to include: IV induction and spontaneous ventilation Plan discussed with attending and OCEANOLOGIST. Anesthetic plan and risks discussed with patient. Recovery plan: PACU Risk factors for PONV: female and non smoker PONV Risk: low Notes Risks MAC with possible GA discussed with patient. She is on 3 LPM O2 at [facility] at home. Last night and this am felt more SOB with gasping. Lungs clear but obvious increased WOB. Unclear exactly what patient's baseline is. Case discu ssed with Dr. Garrido. Will pursue GABRIELLA as patient's underlying pathology is lik javed etiology. She may require overnight hospitalization for optimization. [place] Peters No COVID-19 Lab results in past 6 months. documented in this encounter Plan of Treatment Care Team Description Date Type Specialty Dolores Eli, RN ACNP [address] [facility] [address] [place] [address] [phone] 11/02/2019 Video Visit Cardiology documented as of this encounter Visit Diagnoses Not on filedocumented in this encounter Administered Medications Action Date Dose Rate Site Medication Order MAR Action 09/22/2019 9:37 AM CDT 50 mg lidocaine (pf) (XYLOCAINE-MPF) 10 mg/mL Given (1 %) injection As needed, Starting Fri09/22/19 at 0937 , Anesthesia Intra-op 09/22/2019 10:06 AM CDT 100 mcg/kg/min 59.58 mL/hr propofol (DIPRIVAN) infusion 10 mg/mL Rate/Dose Continuous PRN, Starting Fri09/22/19 at Change 0937, Anesthesia Intra-op 120 mcg/kg/min 71.5 mL/hr Rate/Dose Change 09/22/2019 9:41 AM CDT 100 mcg/kg/min 59.58 mL/hr New Bag 09/22/2019 9:37 AM CDT 09/22/2019 9:39 AM CDT 20 mg propofoL (DIPRIVAN) injection Given As needed, Starting Fri09/22/19 at 0937 , Anesthesia Intra-op 30 mg Given 09/22/2019 9:37 AM CDT 09/22/2019 9:37 AM CDT sodium chloride 0.9% infusion New Bag Intravenous, Continuous PRN, Starting Fri09/22/19 at 0937, Anesthesia Intra-o p documented in this encounter
--- OUTSIDE RECORDS SUMMARY | 2019-10-28 20:55 | XMS REPORT | Encounter Summary ---
Author Author [facility] Organization [facility] Address Unknown Phone Unavailable Care Team Providers Care X Ray Developing Machine Operator Name Role Phone PCP Unavailable Reason for Visit * Reason Comments Procedure Instructions Encounter Details Care Team Description Date Type Department Florencia Le LPN Procedure Instructions 07/14/2019 Telephone [facility] [address] [place] [address] Social History Date Tobacco Use Types Packs/Day Years Used Never Assessed Sex Assigned at Date Recorded Not on file Industry Job Start Date Occupation Not on file Not on file Not on file Travel End Travel History Travel Start No recent travel history available. documented as of this encounter Miscellaneous Notes * Telephone Encounter - Florencia Le LPN - 07/14/2019 9:55 AM TROUBLE DISPATCHER BLE DISPATCHER documented in this encounter Plan of Treatment Care Team Description Date Type Specialty Dolores Eli RN ACNP [address] [facility] [address] [place] [address] [phone] 11/02/2019 Video Visit Cardiology documented as of this encounter Visit Diagnoses Not on filedocumented in this encounter
--- OUTSIDE RECORDS SUMMARY | 2019-10-28 20:55 | XMS REPORT | Encounter Summary ---
Author Author [facility] Organization [facility] Address Unknown Phone Unavailable Care Team Providers Care Revenue Stamp Cutter Name Role Phone Gray Carlos PCP Reason for Visit * Reason Comments Procedure Instructions Encounter Details Care Team Description Date Type Department Florencia Le LPN Procedure Instructions 09/13/2019 [facility]phone [facility] [address] [facility] [address] [place], [place] [id number] Social History Date Tobacco Use Types Packs/Day Years Used Never Assessed Sex Assigned at Date Recorded Not on file Industry Job Start Date Occupation Not on file Not on file Not on file Travel End Travel History Travel Start No recent travel history available. documented as of this encounter Miscellaneous Notes * Telephone Encounter - Florencia Le LPN - 09/13/2019 5:07 PM CDT documented in this encounter Plan of Treatment Care Team Description Date Type Specialty Dolores Eli, RN ACNP [address] [facility] [address] [place] [address] [phone] 11/02/2019 Video Visit Cardiology documented as of this encounter Visit Diagnoses Not on filedocumented in this encounter
--- OUTSIDE RECORDS SUMMARY | 2019-10-28 20:55 | XMS REPORT | Encounter Summary ---
Author Author [facility] Organization [facility] Address Unknown Phone Unavailable Care Team Providers Care Chronometer Tester Name Role Phone CastellanoCarlos PCP Encounter Details Care Team Description Date Type Department Tamica Ayala MD [address] [facility] [address] [place] [address] [phone] Mark Mcclure MD [address] [facility] [address] [place] [address] [phone] Mitral valve insufficiency, unspecified etiology (Primary Dx); Nonrheumatic mitral valve regurgitation; Nonrheumatic tricuspid valve regurgitation; Chronic combined systolic (congestive) and diastolic (congestive) heart failure (HCC) [facility] [address] [facility] [address] [place] [address] Social History Date Tobacco Use Types Packs/Day [...] Signs Reading Time Taken Comments Vital Sign 101/56 09/22/2019 2:03 PM CDT Blood Pressure 72 09/22/2019 2:03 PM CDT Pulse 37.2 C (98.9 F) 09/22/2019 2:03 PM CDT Temperature 24 09/22/2019 2:03 PM CDT Respiratory Rate 92% 09/22/2019 2:03 PM CDT Oxygen Saturation - - Inhaled Oxygen Concentration 100.2 kg (221 lb) 09/22/2019 2:03 PM CDT Weight 165.1 cm (5' 5") 09/22/2019 2:03 PM CDT Height 36.78 09/22/2019 2:03 PM CDT Body Mass Index documented in this encounter Medications at Time [...] mg by 0 tablet mouth every morning. pantoprazole (PROTONIX) Take 40 mg by 0 [...] CARDIOTAB) by mouth 600 MG capsule daily. 10/18/2019 furosemide (LASIX) 40 MG Take 40 mg by 0 tablet mouth daily. 09/22/2019 10/18/2019 lisinopriL Take 1 tablet 30 tablet 11 (PRINIVIL,ZESTRIL) 20 MG (20 mg total) tablet by mouth daily. 09/22/2019 10/13/2019 metoprolol succinate Take 1 tablet 30 tablet 11 (TOPROL-XL) 50 MG 24 hr (50 mg total) tablet by mouth daily. documented as of this encounter Progress Notes * Criselda Jacob, CERTIFIED ADAPTED PHYSICAL EDUCATOR - 09/22/2019 1:45 PM CDT [facility] Appointment Date: 09/22/2019 Carlos Castellano MD [address] [facility] [address] RE: Malathi Hurley : 1950 Visit provider: Mark Mcclure MD Dear Carlos Castellano MD, I had the pleasure of seeing Malathi Hurley in the office today. She is a(n) 7 8 y.o. female and presents with the following chief complaint(s): mitral regurgi tation HPI: Ms. Malathi Hurley is a 69 y/o female being seen in the multidisciplinary valv e clinic for mitral regurgitation, per Dr. Suzette Wilson at [place] [address] [place], [place]. She has PMH significant for chronic systolic and diastolic hear t failure, ICD in situ, PAF on chronic antiarrhythmic therapy, recent nosebleeds requiring transfusion therefore no longer on Eliquis, LBBB, CKD, MAXIM, COPD with chronic home o2 at 3L NC, obesity, tremor, pulmonary hypertension, and lung nod ules d/t suspected sarcoidosis. She reports progressive decline in overall funct ional status over the last 6-8 months due to dyspnea on exertion, orthopnea, and chest tightness. She has had several hospitalizations recently due to near sync ope and shortness of breath. Outside GABRIELLA in May 2019 reported EF 30% with severe MR and moderate TR. Previous cardiac cath in Apr 2019 reported normal coronary arteries, EF 50% with no significant valve disease noted. She was referred for f urther management of valvular disease and underwent GABRIELLA this morning which shows EF 40%, moderate to severe MR due to restricted motion of the posterior leaflet, moderate to severe TR, and severe pulmonary hypertension. Today Ms. Hurley is here with her son. She has been on oxygen therapy x6 demario hs. She can no longer climb stairs and only walks short distances before needing to rest. STS risk for MVR: 9.5% STS risk for MV repair: 5.3% Patient Active Problem List Diagnosis SNOMED CT(R) Nonrheumatic mitral valve regurgitation NON-RHEUMATIC MITRAL REGURGITATION Tricuspid regurgitation TRICUSPID VALVE REGURGITATION NICM (nonischemic cardiomyopathy) (HCC) CARDIOMYOPATHY Chronic combined systolic (congestive) and diastolic (congestive) heart fail ure (HCC) CHRONIC COMBINED SYSTOLIC AND DIASTOLIC HEART FAILURE CKD (chronic kidney disease) CHRONIC KIDNEY DISEASE PAF (paroxysmal atrial fibrillation) (HCC) PAROXYSMAL ATRIAL FIBRILLATION Chronic anticoagulation LONG-TERM CURRENT USE OF ANTICOAGULANT Implantable cardioverter-defibrillator (ICD) in situ AUTOMATIC IMPLANTABLE C ARDIAC DEFIBRILLATOR IN SITU Essential hypertension ESSENTIAL HYPERTENSION Obstructive sleep apnea OBSTRUCTIVE SLEEP APNEA SYNDROME Mitral regurgitation MITRAL VALVE REGURGITATION Near syncope NEAR SYNCOPE Pulmonary hypertension (HCC) PULMONARY HYPERTENSION Carotid artery disease (HCC) DISORDER OF CAROTID ARTERY 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 (HCC) CKD (chronic kidney disease) Essential hypertension Frequent epistaxis Mitral regurgitation NICM (nonischemic cardiomyopathy) (HCC) Nonischemic cardiomyopathy (HCC) Nonrheumatic mitral valve regurgitation Obesity MAXIM (obstructive sleep apnea) PAF (paroxysmal atrial fibrillation) (HCC) Pulmonary hypertension (HCC) Sarcoidosis suspected Tricuspid regurgitation Past Surgical History: Procedure Laterality Date APPENDECTOMY 1998 BRONCHOSCOPY 03/2019 CARDIOVERSION 06/18/2019 [facility] (with rhyth maintenance on Amiodarone) CARDIOVERSION 03/13/2012 [...] MG tablet Take 40 mg by mouth 3 (three) times a day. T wo in the morning and one at night lisinopriL (PRINIVIL,ZESTRIL) 20 MG tablet Take 1 tablet (20 mg total) by mo uth daily. 30 tablet 11 metoprolol succinate (TOPROL-XL) 50 MG 24 hr tablet Take 1 tablet (50 mg tot al) by mouth daily. 30 tablet 11 pantoprazole (PROTONIX) 40 MG tablet Take 40 [...] daily. No current facility-administered medications for this encounter. No Known Allergies Family History Problem Relation Age of Onset Hypertension Father Social History: Social History Tobacco Use Smoking status: Never Smoker Smokeless tobacco: Never Used Substance Use Topics Alcohol use: Yes Alcohol/week: 2.0 standard drinks Types: 2 Shots of liquor per week Drug use: Never Review of Systems Constitution: Positive for malaise/fatigue. Negative for fever, weight gain and weight loss. HENT: Positive for nosebleeds. Negative for sore throat. Eyes: Negative for blurred vision, vision loss in left eye and vision loss in ri ght eye. Cardiovascular: Positive for irregular heartbeat. Negative for chest pain, dyspn ea on exertion, leg swelling, palpitations and syncope. Respiratory: Positive for shortness of breath. Negative for cough. Endocrine: Negative for cold intolerance and heat intolerance. Skin: Negative for poor wound healing and rash. Musculoskeletal: Negative for arthritis, falls and myalgias. Gastrointestinal: Negative for bloating, hematemesis and hematochezia. Genitourinary: Negative for dysuria and hematuria. Neurological: Negative for dizziness, numbness and tremors. Psychiatric/Behavioral: Negative for altered mental status and depression. Allergic/Immunologic: Negative for HIV exposure and persistent infections. Vitals 09/22/2019 09/22/2019 09/22/2019 09/22/2019 09/22/2019 09/22/2019 09/22/2019 BP 114/92 114/92 120/65 99/74 119/58 130/105 131/66 BP Method - - Machine (Non-invasive) Machine (Non-invasive) Machine (Non-invasiv e) Machine (Non-invasive) Machine (Non-invasive) BP Location - - Left arm Left arm Left arm Left arm Left arm Pulse 70 80 70 70 70 70 70 Heart Rate Source - - Monitor Monitor Monitor Monitor Monitor Resp 30 23 28 22 25 21 13 Height - - - - - - - Weight - - - - - - - SpO2 94 94 92 94 96 96 97 Some recent data might be hidden BMI: Body mass index is 36.78 kg/m. Physical Exam Constitutional: Appearance: Normal appearance. HENT: Head: Normocephalic and atraumatic. Eyes: Extraocular Movements: Extraocular movements intact. Conjunctiva/sclera: Conjunctivae normal. Neck: Musculoskeletal: Normal range of motion and neck supple. Cardiovascular: Rate and Rhythm: Normal rate and regular rhythm. Heart sounds: Murmur present. Pulmonary: Effort: Pulmonary effort is normal. No respiratory distress. Breath sounds: Normal breath sounds. No wheezing. Comments: Supplemental oxygen 3L NC Abdominal: General: Bowel sounds are normal. Palpations: Abdomen is soft. Tenderness: There is no abdominal tenderness. Genitourinary: Comments: deferred Musculoskeletal: Normal range of motion. General: No swelling. Skin: General: Skin is warm and dry. Coloration: Skin is not jaundiced. Neurological: General: No focal deficit present. Mental Status: She is alert and oriented to person, place, and time. Psychiatric: Mood and Affect: Mood normal. Behavior: Behavior normal. No results found for: CHOL, LDL, HDL, TRIG No results found for: LDLCHOL Encounter Diagnoses Name Primary? Nonrheumatic mitral valve regurgitation Nonrheumatic tricuspid valve regurgitation Chronic combined systolic (congestive) and diastolic (congestive) heart fail ure (HCC) Mitral valve insufficiency, unspecified etiology Yes Impression and Plan: At the pleasant opportunity evaluating Mrs. Hurley in our multidisciplinary v alve clinic today in conjunction with my interventional cardiology colleague Dr. Oreilly. She is a delightful morbidly obese 69-year-old -Finnish female accompanied by her son. She has been followed in [place]. She is developed incr easing symptoms of dyspnea and shortness of breath with exertion including occas ional breathlessness in the middle of the night. She has had echoes which now d emonstrate severe mitral insufficiency and moderate to severe TR. She does have some room to play with regard to goal-directed medical therapy. She has not had any heart failure hospitalizations. Review of her echo demonstrates she has s uitable anatomy for MitraClip. Obviously tricuspid valve under currently approv ed devices cannot be taken care of but in the future she may be a candidate for tricuspid valve percutaneous investigational therapies. The present time before proceeding with MitraClip we would like to optimize her medical therapy in line with goal-directed therapy. Those changes will be made today by Dr. Oreilly. Cade boland like to monitor her closely and reecho her after she reaches maximally chanell ated doses of medications which we will change today. All questions were addres sed. Mark Mcclure. Treatment goals, progress and next steps, as above, were discussed and mutually agreed upon with the patient/family. Thank you for allowing me to participate in Malathi Hurley's care. If I can b e of any further assistance, please do not hesitate to contact me. Sincerely, Mark Mcclure MD documented in this encounter Plan of Treatment Care Team Description Date Type Specialty oDlores Eli, RN ACNP [address] [facility] [address] [place] [address] [phone] 11/02/2019 Video Visit Cardiology documented as of this encounter Visit Diagnoses Diagnosis Nonrheumatic mitral valve regurgitation Nonrheumatic tricuspid valve regurgitat ion Chronic combined systolic (congestive) and diastolic (congestive) heart failure (HCC) Mitral valve insufficiency, unspecified etiology documented in this encounter
--- OUTSIDE RECORDS SUMMARY | 2019-10-28 20:55 | XMS REPORT | Encounter Summary ---
Author Author [facility] Organization [facility] Address Unknown Phone Unavailable Care Team Providers Care Instructional Design Consultant Name Role Phone Carlos Castellano PCP Reason for Referral * Consultation (Routine) Referred By Contact Referred To Contact Status Reason Specialty Diagnoses / Procedures Suzette Wilson MD [address] [facility] [place] [address] [facility] Valve And Vasc Cl [address] [place] [address] Closed Valve and Diagnoses Vascular Severe mitral regurgitation * Diagnostic Imaging (Routine) Referred By Contact Referred To Contact Status Reason Specialty Diagnoses / Procedures Elvis Melendez MD [address] [facility] [address] [place] [address] [facility] Cv Ultrasound [address] [place] [address] Closed Cardiology Diagnoses Severe mitral regurgitation P rocedures Echo Transesophageal with Doppler and Color Flow * Pulmonology (Routine) Referred By Contact Referred To Contact Status Reason Specialty Diagnoses / Procedures Elvis Melendez MD [address] [facility] [address] [place] [address] Authorized Diagnoses Severe mitral regurgitation P rocedures SPIROMETRY (OFFICE OR CLINIC) Reason for Visit * Reason Comments Referral - [facility] Encounter Details Care Team Description Date Type Department Rey, BLAIRE Don Referral - [facility] [address] [facility], [address] [place] [address] Social History Date Tobacco Use Types Packs/Day Years Used Never Assessed Sex Assigned at Date Recorded Not on file Industry Job Start Date Occupation Not on file Not on file Not on file Travel End Travel History Travel Start No recent travel history available. documented as of this encounter Miscellaneous Notes * Addendum Note - Florencia Perez LPN - 09/13/2019 12:07 PM CDT Addended by: FLORENCIA PEREZ on: 09/13/2019 12:07 PM Modules accepted: Orders * Telephone Encounter - Florencia Perez LPN - 07/13/2019 11:59 AM MANAGER OF CORPORATE Return call from son; Pt was added to the call. Same day testing is requesting as son can not take off of work on multiple days. Offered and accepted 08/05 0800 GAB[facility] 1130 PFT 1230 [facility] Packet will go out today. Son asked for a copy of schedule and map. Will send separately. All questions answered. [employer] * Telephone Encounter - Florencia Perez LPN - 07/13/2019 10:53 AM MANAGER OF CORPORATE Call to pt; Spoke to pt regarding testing and consultation. Pt lives 2 hours away and depends on son for transportation. She would prefer same day testing and consult. Explained that this will extend the time we can see her. Pt would like dates and then she can decide. Will get options from hospital line fixer then decide. Pt is agreeable. [employer] * Telephone Encounter - Florencia Perez LPN - 07/07/2019 12:47 PM MANAGER OF [employer]POR[employer] From: Elvis Melendez <[email or web address]> Sent: Sunday, July 07, 2019 12:22 PM To: Florencia Perez <[email or web address]>; GRP - [facility]-Structural MICHI < [email or web address]> Subject: RE: Malathi Hurley 1950 - [facility] Referral Looks like functional MR, she will need another GABRIELLA here prior to [facility] clinic Thanks Elvis From: Florencia Perez <[email or web address]> Sent: Sunday, July 07, 2019 11:47 AM To: [employer] [facility]-Structural MICHI <[email or web address]> Cc: Florencia Perez <[email or web address]>; Elvis Melendez < [email or web address]> Subject: Malathi Hurley 1950 - [facility] Referral Malathi Hurley 68 year old Legal sex: female 1950 External referral from Dr. Suzette Wilson form [facility] to [facility] for Mi traClip consideration. Dx: Sev MR Insurance: BCBS GABRIELLA 05/27/19; TTE 05/30/19; Cath 04/12/19; Please advise. Florencia Perez [facility] Val[facility] Center [facility] Coordinator - BLAIRE [facility] P/ F/ C/ [email or web address] GER OF [employer]POR[employer] documented in this encounter Plan of Treatment Care Team Description Date Type Specialty Dolores Eli RN ACNP [address] [facility] [address] [place] [address] [phone] 11/02/2019 Video Visit Cardiology Order Schedule Name Type Priority Associated Diag noses 1 Occurrences starting 07/07/2019 until 07/07/2020 SPIROMETRY (OFFICE OR PFT Routine Severe m itral CLINIC) regurgitation documented as of this encounter Results * Echo Transesophageal with Doppler and Color [...] 22 Sep 2019 12:49 Narrative Performed At [facility] Transesophageal Echocardiogram Report Name: MALATHI HURLEY Date: 09/22/2019 09:13 Chart #: [id number] : 1950 Gender F Location: [facility] OP Sono: npfe ffer : Age: 69 Room #: OP Referring: ELVIS MELENDEZ MD Fellow: Indication:Severe mitral regurgita tion Procedure: The patient was kept RESIN PAINTER O after midnight. Informed consent was obtained. [...] Apical Anterior, M id Anterior, Basal Anterior, [place] FINDINGS Mildly reduced left ventricular sy stolic [...] MALATHI HURLEY Date: 09/22/2019 09:13 Chart #: [id number] : 1950 Gender F Location: [facility] OP Sono: npfeffer : Age: 69 [...] Inferior, Apical Anterior, Mid Anterior, Basal Anterior, [place] FINDINGS Mildly reduced left ventricular systolic function, [...] 22 Sep 2019 12:49 Performing Organization Address City/State/Zipksde Ph one Number [facility] documented in this encounter Visit Diagnoses Diagnosis Severe mitral regurgitation documented in this encounter
--- OUTSIDE RECORDS SUMMARY | 2019-10-28 20:55 | XMS REPORT | Encounter Summary ---
Author Author [facility] Organization [facility] Address Unknown Phone Unavailable Care Team Providers Care Project Manager Interior Design Name Role Phone Carlos Castellano PCP Reason for Visit * Reason Comments Update Records Encounter Details Care Team Description Date Type Department Rey, BLAIRE Don Update Records [facility] [address] [facility], [address] [place] [address] Social History Date Tobacco Use Types Packs/Day [...] Specialty Dolores Eli, RN ACNP [address] [facility] [address] [place] [address] [phone] 11/02/2019 Video Visit Cardiology documented as of this encounter Visit Diagnoses Not on filedocumented in this encounter
--- OUTSIDE RECORDS SUMMARY | 2019-10-28 20:55 | XMS REPORT | Encounter Summary ---
Author Author [facility] Organization [facility] Address Unknown Phone Unavailable Care Team Providers Care Inclusion Manager Name Role Phone Gray Carlos PCP Reason for Visit * Reason Comments [facility] follow up Encounter Details Care Team Description Date Type Department Florencia Le LPN [facility] follow up 09/22/2019 Telephone [facility] [address] [facility] [address] [place] [address] Social History Date Tobacco Use Types Packs/Day [...] Telephone Encounter - Florencia Le LPN - 09/22/2019 2:23 PM CDT Pt present today with son. Per JTS - Pt need to f/u in 2-3 weeks with [facility] in [facility] Valve clinic with a virtu al/phone call. This was scheduled for 10/21 which was JTS first available. Pt will call this office in one week with a BP log. Will discuss BP long with JTS and make appropriate changes if needed. Plan for now to f/u in [facility] in 2-3 months for ReEval with a TTE. (Dec 2019) Recall made KDriver documented in this encounter Plan of Treatment Care Team Description Date Type Specialty Dolores Eli RN ACNP [address] [facility] [address] [place] [address] [phone] 11/02/2019 Video Visit Cardiology documented as of this encounter Visit Diagnoses Diagnosis Severe mitral regurgitation Preop cardiovascular exam Pre-operative cardiovascular examinatio n Pre-procedure lab exam Pre-procedural laboratory examination 2019 novel coronavirus disease (COVID-1 9) documented in this encounter
--- OUTSIDE RECORDS SUMMARY | 2019-10-28 20:55 | XMS REPORT | Encounter Summary ---
Author Author [facility] Organization [facility] Address Unknown Phone Unavailable Care Team Providers Care Director Of Health Education Name Role Phone Gray Carlos PCP Reason for Referral * Diagnostic Imaging (Routine) Referred By Contact Referred To Contact Status Reason Specialty Diagnoses / Procedures Elvis Melendez MD [address] [place] [address] [facility] Cv Ultrasound [address] [place] [address] Closed Cardiology Diagnoses Severe mitral regurgitation P rocedures Echo Transesophageal with Doppler and Color Flow Reason for Visit * Diagnostic Imaging (Routine) Referred By Contact Referred To Contact Status Reason Specialty Diagnoses / Procedures Elvis Melendez MD [address] [place] [address] [facility] Cv Ultrasound [address] [place] [address] Closed Cardiology Diagnoses Severe mitral regurgitation P rocedures Echo Transesophageal with Doppler and Color Flow Encounter Details Care Team Description Date Type Department Elvis Melendez MD [address] [place] [address] [phone] Severe mitral regurgitation 09/22/2019 [facility] [address] [place] [address] Social History Date Tobacco Use Types Packs/Day [...] Signs Reading Time Taken Comments Vital Sign 114/92 09/22/2019 11:45 AM CDT Blood Pressure 70 09/22/2019 11:45 AM CDT Pulse 36.8 C (98.3 F) 09/22/2019 10:12 AM CDT Temperature 30 09/22/2019 11:45 AM CDT Respiratory Rate 94% 09/22/2019 11:45 AM CDT Oxygen Saturation - - Inhaled Oxygen Concentration 99.3 kg (219 lb) 09/22/2019 8:54 AM CDT Weight 165.1 cm (5' 5") 09/22/2019 8:54 AM CDT Height 36.44 09/22/2019 8:54 AM CDT Body Mass Index documented in this encounter Discharge Instructions * Discharge Instr - Other Orders* Rocio Pang, HARRIET - 09/22/2019 10:49 AM CDT Because you received sedation for your procedure, you will need to avoid the fol lowing for at least 12 hours: Do not consume any alcoholic beverages, or any type of tranquilizing or sleep me dications. Do not drive or operate dangerous machinery. Do not return to work, make important business or sign any legal documents. If you develop a sore throat, gargle with warm salt water or use throat lozenges from you local drugstore. You may resume your regular diet unless otherwise instructed by your physician. Start with cool, clear liquids and advance diet as tolerated. Avoid hot liquids for 6 hours. Monitor IV Site: You may develop a lump and/or redness at the site where your me dication was given. Apply a warm, wet compress to the area for about 10 minutes, 4 times a day for 2 to 3 days or longer if tenderness and redness persists. If tenderness and/or redness continue after 3 days, call your physician. Additional instructions and information: Balance may be affected for up to 12 Hours. Provide assistance until the patient regains their balance. The patient may be sleepy. If the patient is sleeping soundly, wake them every 2 hours for 6 hours and ask them their name, where they are, and who you are. Call your physician at [phone] with any questions or problems or call 911 f or emergent needs. Call 911 if the patient is having difficulty breathing, is turning blue or is un able to awaken. documented in this encounter Medications at Time [...] 40 mg by 0 tablet mouth daily. documented as of this encounter H&P Notes * Renee Casiano APRN - 09/22/2019 8:39 AM CDT [facility] Comprehensive Initial Note Date: 09/22/2019 Established [facility] patient: No PCP: Carlos Castellano MD Chief complaint: SOA, severe MR Note generated by: Oh PEÑALOZA HPI: Ms. Hurley is a 69 y/o female who presents for GABRIELLA for evaluation of stephany ral valve disease after a referral to valve clinic by Dr. Solorzano at [facility]. She has PMH chronic combined heart failure with improvement in EF, mo st recent outside echo shows an EF 50%, severe MR, NICM, syncope thought to poss ibly be related to medications, dual chamber ICD, anemia, CKD, suspected sarcoid osis, COPD, and chronic respiratory failure on 3 liters continuous oxygen, MAXIM p resently not wearing CPAP. She also has history of atrial flutter with recent c ardioversion 06/2019 on amiodarone. She was evaluated [facility] and not th ought to be a surgical candidate for valve replacement. She has cath 04/12/2019 t hat showed to significant CAD. In early 2019, she has had several hospitalizations and with acute on chronic he art failure requiring diuresis. She also had atrial flutter as noted as above. H er last hospitalization was in July due to significant nosebleed. She reports h er Hgb was down to 4 and received transfusion. Because of this she has not resum ed Eliquis. She has a follow up with Dr. Solorzano next week and plans to review th is. She reports doing activities around the house and occasionally needing to stop a nd rest due to SOA, consistent with NYHA class III status. She reports she has b een taking furosemide 80 mg in the AM and 40 mg in the evening. She reports she sometimes misses her evening dose of furosemide. She reports this AM, she awoke with shortness of breath. She took her usual inhalers and still felt short of br eath afterwards. She has not taken her furosemide this AM. Past Medical History: Diagnosis Date Anemia Asthma [...] Date APPENDECTOMY 1998 BRONCHOSCOPY 03/2019 CARDIOVERSION 06/18/2019 [facility] (with rhyth maintenance on Amiodarone) CARDIOVERSION 03/13/2012 [...] CATHETERIZATION 11/06/2011 SKIN BIOPSY 09/22/2013 Social History: has no history on file for tobacco, alcohol, and drug. Family History Problem Relation Age of Onset Hypertension Father Review of Systems Constitutional: Negative. HENT: Negative. Eyes: Negative. Respiratory: Positive for shortness of breath. Negative for cough and chest tigh tness. Cardiovascular: Negative. Gastrointestinal: Positive for abdominal distention. Genitourinary: Negative. Musculoskeletal: Negative. Skin: Negative. Allergic/Immunologic: Negative. Neurological: Negative. Hematological: Negative. Psychiatric/Behavioral: Negative. No Known Allergies Medications: propofoL sodium chloride 0.9 % LABS & IMAGING: No results found. Telemetry: Normal Sinus Rhythm No lab components to display No results for input(s): NA, CL, CO2, CL, BUN, CREAT, MG in the last 72 hours. No lab components to display No lab components to display No lab components to display No lab components to display No results found for: HGBA1C, NTPROBNP PHYSICAL EXAM: Temp: [37.1 C (98.7 F)] 37.1 C (98.7 F) Pulse: [71] 71 Resp: [21] 21 BP: (119)/(102) 119/102 Physical Exam Constitutional: She is oriented to person, place, and time. She appears well-dev eloped and well-nourished. No distress. HENT: Head: Normocephalic. Eyes: No scleral icterus. Neck: JVD (mildly elevated) present. Cardiovascular: Normal rate and regular rhythm. Murmur heard. Systolic murmur is present with a grade of 3/6. Pulses: Radial pulses are 2+ on the right side and 2+ on the left side. Dorsalis pedis pulses are 2+ on the right side and 2+ on the left side. Posterior tibial pulses are 2+ on the right side and 2+ on the left side. Pulmonary/Chest: Effort normal and breath sounds normal. Abdominal: Soft. Bowel sounds are normal. Musculoskeletal: General: No edema. Neurological: She is alert and oriented to person, place, and time. Skin: Skin is warm and dry. Psychiatric: She has a normal mood and affect. ASSESSMENT & PLAN: Active Problems: * No active hospital problems. * Severe MR -plan to try to proceed with GABRIELLA to evaluate MR then TMVR clinic later today. -pending clinical course, consider dose of IV furosemide while here, may need to consider optimization NICM -cath 04/2019 with no significant CAD -dual chamber ICD Atrial flutter -presently in SR -Eliquis on hold due to severe anemia. Outside labs notable for Hgb 8 -in SR Electronically signed by Renee Casiano APRN, 09/22/2019 9:30 AM documented in this encounter Plan of Treatment Care Team Description Date Type Specialty Dolores Eli, RN ACNP [address] [facility] [address] [place] [address] [phone] 11/02/2019 Video Visit Cardiology documented as of this encounter Procedures Comments Procedure Name Priority Date/Time Associated Diag nosis ECHO TRANSESOPHAGEAL WITH Routine 09/22/2019 Tonya re mitral COLOR FLOW AND DOPPLER 10:24 AM CDT regurgitation documented in this encounter Results * Echo Transesophageal with [...] MALATHI HURLEY Date: 09/22/2019 09:13 Chart #: [id number] : 1950 Gender F Location: [facility] OP Sono: npfe ffer : Age: 69 Room #: OP Referring: ELVIS MELENDEZ MD Fellow: Indication:Severe mitral regurgita tion Procedure: The patient was kept LINE TECHNICIAN O after midnight. Informed consent was obtained. [...] Apical Anterior, M id Anterior, Basal Anterior, [place] FINDINGS Mildly reduced left ventricular sy stolic [...] MALATHI HURLEY Date: 09/22/2019 09:13 Chart #: [id number] : 1950 Gender F Location: [facility] OP Sono: npfeffer : Age: 69 [...] Inferior, Apical Anterior, Mid Anterior, Basal Anterior, [place] FINDINGS Mildly reduced left ventricular systolic function, [...] 22 Sep 2019 12:49 Performing Organization Address City/State/Zipcode Ph one Number PROSOLV documented in this encounter Visit Diagnoses Diagnosis Severe mitral regurgitation documented in this encounter
--- OUTSIDE RECORDS SUMMARY | 2019-10-28 20:55 | XMS REPORT | Encounter Summary ---
Author Author [facility] Organization [facility] Address Unknown Phone Unavailable Care Team Providers Care Dominatrix Name Role Phone Gray Carlos PCP Reason for Visit * Reason Comments TMVR Postponed Encounter Details Care Team Description Date Type Department Jason Perez LPN [facility] [address] [facility] [address] [place] [address] Social History Date Tobacco Use Types Packs/Day Years Used Never Assessed Sex Assigned at Date Recorded Not on file Industry Job Start Date Occupation Not on file Not on file Not on file Travel End Travel History Travel Start No recent travel history available. documented as of this encounter Miscellaneous Notes * Addendum Note - Jason Perez LPN - 09/13/2019 11:01 AM CDT Addended by: JASON PEREZ on: 09/13/2019 11:01 AM Modules accepted: Orders * Telephone Encounter - Jason Perez LPN - 09/13/2019 9:21 AM CDT Call to pt; No answer Left VM asking for a return call to discuss rescheduling GABRIELLA and consult. KDriver * Telephone Encounter - Jason Perez LPN - 08/18/2019 9:26 AM CDT Return call from pt; Pt is calling stating she would like to wait on testing and consult at this time . Once GILMAR restriction is lifted at the end of the month, pt will considering comin g in. Explained that pt needs to keep in contact with Dr. Wilson's office if symptoms worsen. Pt is agreeable. Will f/u with pt in a few weeks. KDriver * Telephone Encounter - Jason Perez LPN - 08/17/2019 1:29 PM CDT Call to pt; no answer Left VM stating that rescheduling TMVR testing and consult is an option now. Nee d to discuss in detail if pt is interested. Also, requested a status update. Call back number provided. KDriver * Telephone Encounter - Jason Perez LPN - 07/28/2019 2:52 PM CDT Call to pt; Spoke to pt directly. Pt is aware of the current health situation and was information that all electiv e and outpt procedures/testing/consults are being postponed at this time. Pt is aware that we have no information as to when we can reschedule as this is a very fluid situation. Pt is aware that she can call if he has question but at this p oint, this office will be calling when we can reschedule. Pt directed to call Dr Christian Wilson office is symptoms worsen. Pt v/u to all the above. Call to Dr. Wilson's office; Spoke to nurse Bear. Discussed the above. Direction is have pt kiarra Dr. Debra goodman office if symptoms worse and they will call this office if pt needs to be see n urgently. Agreeable to this plan. KDriver documented in this encounter Plan of Treatment Care Team Description Date Type Specialty Dolores Eli RN ACNP [address] [facility] [address] [place] [address] [phone] 11/02/2019 Video Visit Cardiology Order Schedule Name Type Priority Associated Diag noses Expected: 09/19/2019, Expires: 1 SARS-CoV-2, EMELIA Microbiology Routine 2018 novel cor onavirus (COVID-19) disease (COVID-19) Pre-procedure lab exam Preop cardiovascular exam documented as of this encounter Visit Diagnoses Diagnosis 2019 novel coronavirus disease (COVID-1 9) Pre-procedure lab exam Pre-procedural laboratory examination Pre-op chest exam Preop cardiovascular exam Pre-operative cardiovascular examinatio n documented in this encounter
--- OUTSIDE RECORDS SUMMARY | 2019-10-28 20:55 | XMS REPORT | Encounter Summary ---
Author Author [facility] Organization [facility] Address Unknown Phone Unavailable Care Team Providers Care V Belt Skiver Name Role Phone Gray Carlos PCP Encounter Details Care Team Description Date Type Department Lime Mixer Tender, BLAIRE Don Severe mitral regurgitation (Primary Dx) 09/13/2019 Orders [address] [address] Social History Date Tobacco Use Types Packs/Day [...] Specialty Dolores Eli RN ACNP [address] [facility] [address] [place] [address] [phone] 11/02/2019 Video Visit Cardiology documented as of this encounter Visit Diagnoses Diagnosis Severe mitral regurgitation documented in this encounter
--- OUTSIDE RECORDS SUMMARY | 2019-10-28 20:55 | XMS REPORT | Encounter Summary ---
Author Author [facility] Organization [facility] Address Unknown Phone Unavailable Care Team Providers Care Professor Of Religious Studies Name Role Phone Carlos Castellano PCP Encounter Details Care Team Description Date Type Department Jr Christopher RN 10/06/2019 Telephone [facility] [address] [facility] [address] [place] [address] Social History Date Tobacco Use [...] encounter Miscellaneous Notes * Telephone Encounter - Carla Xiong RN - 10/06/2019 3:28 PM CDT Received call from pt she is being discharged today and they are stopping her po tassium. Also having her hold her lisinopril until her fu appt with pcp next wee k d/t her kidneys. Informed pt that records would be requested and then message will be sent to Dr. Oreilly for recs. Pt vu and had no further questions. * Telephone Encounter - Carla Xiong RN - 10/06/2019 1:04 PM CDT Received voice message from pt stating her doctor there is wanting her to restar t her Eliquis. States she hasn't been taking it for a while. Returned call to pt . States she was taken off Eliquis about 2 months ago d/t frequent nose bleeds b ut that her payroll associate at [facility] is restarting it. Informed pt that records have been requested from [facility] and RN will make note of restart in her navdeep t. Pt vu and had no further questions. * Telephone Encounter - Jr Christopher RN - 10/06/2019 9:04 AM CDT Pt. Hospitalized in [facility], reports her stomach was upset and she couldn't breath, no energy so got admitted last night. Reports th e payroll associate there is going to reduce the dose of lisinopril due to her kidn ey function. She isn't sure of the dose of the lisinopril yet. She will be d/c t claudia from that hospital. They are also going to reduce her lasix to 40 mg two t imes a day. documented in this encounter Plan of Treatment Care Team Description Date Type Specialty Dolores Eli RN ACNP [address] [facility] [address] [place] [phone] 11/02/2019 Video Visit Cardiology documented as of this encounter Visit Diagnoses Not on filedocumented in this encounter
--- OUTSIDE RECORDS SUMMARY | 2019-10-28 20:55 | XMS REPORT | Encounter Summary ---
Author Author [facility] Organization [facility] Address Unknown Phone Unavailable Care Team Providers Care Cast Iron Drain Pipe Layer Name Role Phone Carlos Castellano PCP Reason for Referral * Consultation (Routine) Referred By Contact Referred To Contact Status Reason Specialty Diagnoses / Procedures Suzette Wilson MD [address] [facility] [place] [address] [facility] [address] [facility] [address] [place] [address] Closed Valve and Diagnoses Vascular Severe mitral regurgitation Reason for Visit * Reason Comments TMVR-MitraClip * Consultation (Routine) Referred By Contact Referred To Contact Status Reason Specialty Diagnoses / Procedures Suzette Wilson MD [address] [facility] [place] [address] [facility] [address] [facility] [address] [place] [address] Closed Valve and Diagnoses Vascular Severe mitral regurgitation Encounter Details Care Team Description Date Type Department Suzette Wilson MD [address] [facility] [place] [address] Inocente Oreilly MD [address] [facility] [address] [place] [address] [phone] 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 (HCC) (Primary Dx); Severe mitral regurgitation; Stage 3 chronic kidney disease (HCC); PAF (paroxysmal atrial fibrillation) (HCC); Chronic anticoagulation; Nonrheumatic mitral valve regurgitation 09/22/2019 [facility] al Encounter [facility] [address] [facility], [address] [place] [address] Social History Date Tobacco Use Types Packs/Day [...] Time Taken Comments Vital Sign 101/56 09/22/2019 2:01 PM CDT Blood Pressure 72 09/22/2019 2:01 PM CDT Pulse 37.2 C (98.9 F) 09/22/2019 2:01 PM CDT Temperature 24 09/22/2019 2:01 PM CDT Respiratory Rate 92% 09/22/2019 2:01 PM CDT Oxygen Saturation - - Inhaled Oxygen Concentration 100.2 kg (221 lb) 09/22/2019 2:01 PM CDT Weight 165.1 cm (5' 5") 09/22/2019 2:01 PM CDT Height 36.78 09/22/2019 2:01 PM CDT Body Mass Index documented in [...] as of this encounter Progress Notes * Inocente Oreilly MD - 09/22/2019 1:45 PM CDT [facility] Appointment Date: 09/22/2019 Carlos Castellano MD [address] [facility] [address] RE: Malathi Hurley : 1950 Visit provider: Inocente Oreilly MD Dear Carlos Castellano MD, I had the pleasure of seeing Malathi Hurley in the office today. She is a(n) 7 8 y.o. female and presents with the following chief complaint(s): TMVR-MitraClip HPI: Ms. Hurley is a very pleasant 69-year-old woman who presents to [facility] for evaluation. She is referred by [facility]. Suzette Wilson [facility] in [place] for evaluation of mitral regurgitation. She has non ischemic cardiomyopathy, chronic combined systolic and diastolic heart failure, chronic kidney disease, paroxysmal atrial fibrillation, and severe mitral regurg itation. She underwent a coronary angiography in late 2019, which demonstrated normal coronary arteries. She was previously on anticoagulation for atrial fibr illation with Eliquis, but she had a severe nosebleed and had severe blood loss anemia and this has since been discontinued. She is currently in sinus rhythm t claudia. She reports symptoms consistent with class III chronic systolic and diast olic heart failure. For medical therapy, she is on diltiazem and amiodarone. S he is also taking Lasix 120 mg daily for maintenance of euvolemia. Her echocard iogram today demonstrated a restrictive posterior and anterior leaflet with markie re posteriorly-directed mitral regurgitation, as well as moderate to severe tric uspid regurgitation. Her ejection fraction was about 40%. We discussed the pat hophysiology of mitral regurgitation in detail. Patient Active Problem List Diagnosis SNOMED CT(R) [...] APPENDECTOMY 1998 BRONCHOSCOPY 03/2019 CARDIOVERSION 06/18/2019 [facility] (with rhyth maintenance on Amiodarone) CARDIOVERSION 03/13/2012 [...] in the morning and one at night pantoprazole (PROTONIX) 40 MG tablet Take 40 mg by mouth daily. potassium chloride (KLOR-CON) 10 MEQ CR tablet Take 20 mEq by mouth daily. therapeutic multivitamin (THERAGRAN) tablet Take 1 tablet by mouth daily. tiotropium (SPIRIVA) [address] 2.5 mcg into inhaler an d inhale daily. turmeric curcumin (THERACURMIN CARDIOTAB) 600 MG capsule Take 560 mg by mout h daily. lisinopriL (PRINIVIL,ZESTRIL) 20 MG tablet Take 1 tablet (20 mg total) by mo uth daily. 30 tablet 11 metoprolol succinate (TOPROL-XL) 50 MG 24 hr tablet Take 1 tablet (50 mg tot al) by mouth daily. 30 tablet 11 No current facility-administered medications for this encounter. No Known Allergies Family History Problem Relation Age of Onset Hypertension Father Social History: Social History Tobacco Use Smoking status: Never Smoker Smokeless tobacco: Never Used Substance Use Topics Alcohol use: Yes Alcohol/week: 2.0 standard drinks Types: 2 Shots of liquor per week Drug use: Never Review of Systems Constitution: Positive for malaise/fatigue. Negative for chills, decreased appet ite, diaphoresis, weight gain and weight loss. HENT: Positive for nosebleeds. Negative for sore throat. Eyes: Negative for blurred vision, double vision, vision loss in left eye and vi kristofer loss in right eye. Cardiovascular: Positive for irregular heartbeat. Negative for chest pain, dyspn ea on exertion, leg swelling, near-syncope, orthopnea, palpitations and syncope. Respiratory: Positive for shortness of breath. Negative for hemoptysis, sleep di sturbances due to breathing and snoring. Endocrine: Negative for cold intolerance and heat intolerance. Hematologic/Lymphatic: Negative for bleeding problem. Does not bruise/bleed easi ly. Skin: Negative for poor wound healing, rash and skin cancer. Musculoskeletal: Negative for falls and muscle weakness. Gastrointestinal: Negative for bloating, hematemesis and hematochezia. Genitourinary: Negative for hematuria. Neurological: Negative for dizziness, light-headedness, loss of balance, numbnes s, paresthesias and weakness. Psychiatric/Behavioral: Negative for altered mental status and [...] 94 94 92 94 96 96 97 BMI: Body mass index is 36.78 kg/m. Physical Exam Gen: Appears comfortable. Does not appear to be in distress. HENT: No scleral icterus. No xanthelasma. Neck: Supple, normal ROM. - JVP is normal. Lungs: CTA bilaterally, normal ventilation. CV: Regular, s1, s2, no murmurs or gallops Warm extremities, normal peripheral pulses Abd: Soft, non-tender. Normal bowel sounds. Musc: normal ROM, normal strength Neuro: Awake and alert, normal insight and judgement, moves all extremities Skin: warm and dry, no rashes or nodules Extr: warm, no edema EKG: Normal Sinus Rhythm and Atrial Fibrillation at 70 bpm Encounter Diagnoses Name Primary? Severe mitral regurgitation Chronic combined systolic (congestive) and diastolic (congestive) heart fail ure (HCC) Yes Stage 3 chronic kidney disease (HCC) PAF (paroxysmal atrial fibrillation) (HCC) Chronic anticoagulation Nonrheumatic mitral valve regurgitation Impression and Plan: 1. Functional mitral regurgitation. She presents with symptoms consistent with class III chronic systolic and diastolic heart failure as well as functional mi tral regurgitation with restriction of posterior and anterior leaflet and assessment clinician iorly-directed mitral regurgitation. Her valve appears amenable to transcathete r mitral valve repair with a MitraClip. However, she is not on maximal medical therapy at this time. I recommend changing diltiazem to metoprolol 50 mg daily and if she tolerates a change in the blood pressure, add lisinopril 20 mg daily one week from now. If she tolerates this medication, we will do a virtual visit in 2-3 weeks and consider additional dose adjustments of medications. She will require a BMP at some point to evaluate her renal function. Once she is close to optimized, we will probably arrange for a virtual visit with one of our [facility] heart failure/transplant cardiologists to assure she is on optimal medical t herapy, followed by a repeat visit in the multidisciplinary valve clinic with a transthoracic echocardiogram to evaluate the severity of mitral regurgitation. Of note, in the COAPT trial, many patients who were screened were ultimately not enrolled in the trial due to improvement in the mitral regurgitation severity u sing guideline-directed medical therapy. 2. Tricuspid regurgitation. This is moderate to severe, will not plan transcat heter therapies at this point in time. 3. Chronic systolic and diastolic heart failure as above. 4. Chronic kidney disease stage 4. Her creatinine is 1.9. GFR is 30. 5. Diuretics. She is on Lasix 120 daily. Treatment goals, progress and next steps, as above, were discussed and mutually agreed upon with the patient/family. Thank you for allowing me to participate in Malathi Hurley's care. If I can b e of any further assistance, please do not hesitate to contact me. Sincerely, Inocente Oreilly MD /dante documented in this encounter Plan of Treatment Care Team Description Date Type Specialty Dolores Eli RN ACNP [address] [facility] [address] [place] [address] [phone] 11/02/2019 Video Visit Cardiology documented as of this encounter Procedures Comments Procedure Name Priority Date/Time Associated Diag nosis AMB REFERRAL TO Routine 09/24/2019 Severe mitral [facility] 8:40 AM CDT regurgitation documented in this encounter Visit Diagnoses Diagnosis Severe mitral regurgitation Chronic combined systolic (congestive) and diastolic (congestive) heart failure (HCC) Stage 3 chronic kidney disease (HCC) PAF (paroxysmal atrial fibrillation) (H CC) Atrial fibrillation Chronic anticoagulation Encounter for long-term (current) use o f anticoagulants Nonrheumatic mitral valve regurgitation documented in this encounter
--- OUTSIDE RECORDS SUMMARY | 2019-10-28 21:03 | XMS REPORT | Encounter Summary ---
Author Author [facility] Organization [facility] Address Unknown Phone Unavailable Care Team Providers Care Buffet Attendant Name Role Phone Carlos Castellano MD PCP Reason for Visit * Reason Comments Other Encounter Details Care Team Description Date Type Department Taisha Raines MD [address] [place] [address] Other 10/22/[address] [address] Social History Date Tobacco Use Types Packs/Day Years Used Never Assessed Sex Assigned at Date Recorded Not on file Industry Job Start Date Occupation Not on file Not on file Not on file Travel End Travel History Travel Start No recent travel history available. documented as of this encounter Miscellaneous Notes * Telephone Encounter - Janice Ford RN - 10/22/2019 2:29 PM CDT Patient left voicemail stating she is scheduled for her sleep study next week an d is needing a Covid test ordered. Spoke with Preston in the Sleep lab and patient does not have sleep study schedule d with sleep center. Per Preston patient wanted to do testing closer to her viviana e in [facility]. Spoke with patient and she states she is scheduled with [facility] on 10/28 at 7pm-6am but would like Covid testing [place] [facility] [place] [facility]. Spoke with Preston in sleep lab and notified him patient states she does have an appt on 10/28. Per Preston he will call and sort a ppointment and testing out with patient. documented in this encounter Plan of Treatment Not on filedocumented as of this encounter Visit Diagnoses Not on filedocumented in this encounter
--- OUTSIDE RECORDS SUMMARY | 2019-10-28 21:03 | XMS REPORT | Encounter Summary ---
Author Author [facility] Organization [facility] Address Unknown Phone Unavailable Care Team Providers Care Software Manager Name Role Phone Carlos Castellano MD PCP Encounter Details Care Team Description Date Type Department OluTaisha john MD [address] [place], [place] [id number] 07/02/2019 [facility] [address] [id number] Social History Date Tobacco Use Types Packs/Day Years Used Never Assessed Sex Assigned at Date Recorded Not on file Industry Job Start Date Occupation Not on file Not on file Not on file Travel End Travel History Travel Start No recent travel history available. documented as of this encounter Plan of Treatment Not on filedocumented as of this encounter Procedures Comments Procedure Name Priority Date/Time Associated Diag nosis CHEST 2 VIEWS Routine 07/02/2019 SOB (shortness of breath) 9:14 AM BEREAVEMENT PROGRAM COORDINATOR documented in this encounter Results * CHEST 2 VIEWS (07/02/2019 9:14 AM BEREAVEMENT PROGRAM COORDINATOR) Specimen Impressions Performed At 1. Mild cardiomegaly without pulmonary vascular con gestion. [facility] 2. Linear opacities in the right mid and lower lung suggestive of atelectasis, scarring, or developing pneumonia. Sammy mmend follow-up examination in 2-4 weeks for evaluation. Approved by JAROD HUITRON D.O. on 10:11 AM By my electronic signature, I attest th at I have personally reviewed the images for this examination and formulated the interpretations and opinions expressed in this report Finalized by Ernesto Leach M.D. on 2019 11:21 AM. Dictated by JAROD HUITRON D.O. on 07/02/2019 9:19 AM. Narrative Performed At Procedure: CHEST 2 VIEWS [facility] Clinical Indication: Shortness of breat h Comparison: No prior studies are availa ble for comparison. Findings: Dual-chamber cardiac conduction device/ defibrillator with control unit in left chest wall and leads terminating in the right atrium and right ventricle. The heart is at the upper limits of normal in size without pulmonary vascular congestion. Linear opacification of the right middle and lower lung consistent with atelectasis, scarring, or developi ng pneumonia. There is no pneumothorax, pleural effusion, or other acute inters titial opacities. Procedure Note Interface, Radiant Results - 07/02/2019 11:24 AM BEREAVEMENT PROGRAM COORDINATOR Procedure: CHEST 2 VIEWS Clinical Indication: Shortness of breath Comparison: No prior studies are available for comparison. Findings: Dual-chamber cardiac conduction device/defibrillator with control unit in left chest wall and leads terminating in the right atrium and right ventricle. The heart is at the upper limits of normal in size without pulmonary vascular congestion. Linear opacification of the right middle and lower lung consistent with atelectasis, scarring, or developing pneumonia. There is no pneumothorax, pleural effusion, or other acute interstitial opacities. IMPRESSION 1. Mild cardiomegaly without pulmonary vascular congestion. 2. Linear opacities in the right mid an d lower lung suggestive of atelectasis, scarring, or developing pneumonia. Recommend follow-up examination in 2-4 weeks for evaluation. Approved by JAROD HUITRON D.O. on 07/02/2019 10:11 AM By my electronic signature, I attest that I have personally reviewed the images for this examination and formulated the interpretations and opinions expressed in this report Finalized by Ernesto Leach M.D. on 07/02/2019 11:21 AM. Dictated by JAROD HUITRON D.O. on 07/02/2019 9:19 AM. Performing Organization Address City/State/Zipcode Ph one Number [facility] documented in this encounter Visit Diagnoses Diagnosis SOB (shortness of breath) Shortness of breath documented in this encounter
--- OUTSIDE RECORDS SUMMARY | 2019-10-28 21:03 | XMS REPORT | Encounter Summary ---
Author Author [facility] Organization [facility] Address Unknown Phone Unavailable Care Team Providers Care Pickle Sorter Name Role Phone Carlos Castellano MD PCP Reason for Visit * Reason Comments Records Request Encounter Details Care Team Description Date Type Department Taisha Raines MD [address] [place] [address] Records Request 07/02/[address] [address] Social History Date Tobacco Use Types Packs/Day Years Used Never Assessed Sex Assigned at Date Recorded Not on file Industry Job Start Date Occupation Not on file Not on file Not on file Travel End Travel History Travel Start No recent travel history available. documented as of this encounter Miscellaneous Notes * Telephone Encounter - Betzaida Muñoz MA,ANKIT-WRAP KNITTING MACHINE OPERATOR - 07/15/2019 8:29 AM COMPREHENSIVE OPHTHALMOLOGIST Received fax from [facility] Susan stating no bronch completed in Apr 2019 but did find one in Mar 2019. Document faxed to clinic. Record has been scanned and forwarded to Janice Ford RN and Dr. Raines via email. Routing to Davis Ford RN. Betzaida Muoñz MA T * Telephone Encounter - Betzaida Muñoz MA,ANKIT-WRAP KNITTING MACHINE OPERATOR - 07/13/2019 12:[address] imaging reports and images have been received from [facility] Esmeralda. Im ages have been attached to patient's chart. Consultation reports received from Zack Wallace that were completed in Apr 2019. Documents forwarded to Janice morton RN, and Dr. Raines via email. Documents sent to be scanned to patient's chart. Routing to Janice Ford RN. Betzaida Muñoz MA T * Telephone Encounter - Betzaida Muñoz MA,CCC-WRAP KNITTING MACHINE OPERATOR - 07/02/2019 1:18 PM COMPREHENSIVE OPHTHALMOLOGIST Imaging request faxed to [facility] to obtain all CT Chest images. Re quest images to be clouded or mailed overnight on a disk and reports faxed. Christ x acct number provided. Record request faxed to [facility] to obtain bronchoscopy procedure report and pathology results that were completed in April 2019. Routing to Janice Ford RN. Betzaida Muñoz MA T documented in this encounter Plan of Treatment Not on filedocumented as of this encounter Visit Diagnoses Not on filedocumented in this encounter
--- OUTSIDE RECORDS SUMMARY | 2019-10-28 21:03 | XMS REPORT | Encounter Summary ---
Author Author [facility] Organization [facility] Address Unknown Phone Unavailable Care Team Providers Care Lighting Director Name Role Phone Carlos Castellano MD PCP Reason for Referral * Consult, Test & Treat (Routine) Referred By Contact Referred To Contact Status Reason Specialty Diagnoses / Procedures Taisha Raines MD [address] [place] [address] Rb - [facility] [id number] [place] [address] No Auth Needed Specialty Services Sleep Center Diagnoses Required AMXIM and COPD overlap syndrome (HCC) Scheduling Instructions Neck circumference may be a required measurement for sleep study prior authorization and/or claim payment. Has neck circumference been obtained? no Reason for Visit * Reason Comments Shortness of Breath * Consult, Test & Treat (Routine) Referred By Contact Referred To Contact Status Reason Specialty Diagnoses / Procedures Marianela Lamas, DAIRY SCIENCE TEACHER [address] [place] [address] [facility] [address] [place] [address] No Auth Needed Pulmonology Encounter Details Care Team Description Date Type Department Taisha Raines MD [address] [place], [place] [id number] MAXIM and COPD overlap syndrome (HCC) ([facility] jg Dx); BMI 38.0-38.9,adult; Other persistent atrial fibrillation (HCC); Chronic anticoagulation; Chronic respiratory failure with hypoxia (HCC) 07/02/2019 Office Visit [facility] [address] [place] [address] Social History Date Tobacco Use Types Packs/Day Years Used Never Assessed Sex Assigned at Date Recorded Not on file Industry Job Start Date Occupation Not on file Not on file Not on file Travel End Travel History Travel Start No recent travel history available. documented as of this encounter Last Filed Vital Signs Reading Time Taken Comments Vital Sign 97/64 07/02/2019 10:06 AM MUCKING MACHINE OPERATOR Blood Pressure 81 07/02/2019 10:06 AM MUCKING MACHINE OPERATOR Pulse 36.2 C (97.2 F) 07/02/2019 10:06 AM MUCKING MACHINE OPERATOR Temperature 16 07/02/2019 10:06 AM MUCKING MACHINE OPERATOR Respiratory Rate 95% 07/02/2019 10:06 AM MUCKING MACHINE OPERATOR 3 lpm Oxygen Saturation - - Inhaled Oxygen Concentration 98.4 kg (217 lb) 07/02/2019 10:06 AM MUCKING MACHINE OPERATOR Weight 160 cm (5' 3") 07/02/2019 10:06 AM MUCKING MACHINE OPERATOR Height 38.44 07/02/2019 10:06 AM MUCKING MACHINE OPERATOR Body Mass Index documented in this encounter Patient Instructions * Patient Instructions* Taisha Raines MD - 07/02/2019 10:20 AM MUCKING MACHINE OPERATOR It was very nice to meet you and your son today In review of your Pulmonary function testing and your chest Xray it is my opinio n that your greatest issues are your heart disease and your untreated obstructiv e sleep apnea Your assembler dc field yoke would need to refer you to the cardiothoracic surgeons at [facility] for further evaluation if felt appropriate We will order a repeat study for your sleep apnea - your last study is too old f or us to be able to reinstate treatment from that You also have report of a diagnosis of sarcoidosis. This is an inflammatory con dition in which the immune system attacks different parts of the body. To be co nfident that you have it, we would need to make certain that you diagnostic schaffer ges on CT scan of the chest and on biopsy (this would have been done during the bronchoscopy in Apr 2019) - we will make certain that we get these results from [facility] in [place] for review and will contact you with our opinion You are on good inhaler therapy with advair, spiriva and albuterol and do not ne ed to change this. I am worried about your dizzy episodes when you stand. Your blood pressure is t oo low and you are on a blood thinner with increase in risk of falling. Please discuss with your assembler dc field yoke since your medications may need to be changed. B e very very careful getting around. - If you need to schedule or reschedule an appointment, please call . - For any urgent issues after business hours, please call and hav e the dirt contractor pulmonary physician paged. - If you have any questions regarding your appointment or any concerns, please c ontact Janice Ford RN at . ObstructiveSleep Apnea Obstructive sleep apnea is a condition that causes your air passages to become n arrowed or blocked during sleep. As a result, breathing stops for short periods. Your body wakes up enough for breathing to start again,though you don't remem sulema it. The cycle of stopped breathing and brief awakenings can repeat dozens of times a night. This prevents the body from getting to the deeper stages of sleep that are needed for good rest and may cause your body's oxygen level to fall. Signs of sleep apnea include loud snoring, noisy breathing, and gasping sounds d uring sleep. Daytime symptoms include waking up tired after a full night's sleep ,waking up with headaches, feeling very sleepy or falling asleep during the da y,and having problems with memory or concentration. Risk factors for sleep apnea include: Being overweight Being a man, or a woman in menopause Smoking Using alcohol or sedating medicines Having enlarged structures in the nose or throat such as enlarged tonsils or adenoids, or extra tissue in the airway Home care Lifestyle changes that can help treat snoring and sleep apnea include the follow ing: If you are overweight, lose weight. Talk with your healthcare provider about a weight-loss plan for you. Don't drink alcohol for 3 to 4 hours before bedtime. Don't take sedating medi cines. Ask your healthcare provider about the medicines you take. If you smoke, talk to your healthcare provider about ways to quit. It's impor tant to stay away from secondhand smoke. don't use e-cigarettes because of their harmful side effects. Sleep on your side. This can help prevent gravity from pulling relaxed throat tissues into your breathing passages. If you have allergies or sinus problems that block your nose, ask your health care provider for help. Use positive airway pressure (PAP): Discuss with your healthcare provider the benefits of using PAP at home and the type of PAP that is best for you. Follow-up care Follow up with your healthcare provider, or as advised.A diagnosis of sleep ap gilson is made with a sleep study. Your healthcare provider can tell you more about this test. When to seek medical advice See your healthcare provider if you have daytime symptoms of sleep apnea. These include: Waking up tired after a full night's sleep Waking up with a headache Feeling very sleepy or falling asleep during the day Having problems with memory or concentration Also talk with your provider if your partner tells you that you snore, gasp for air, or stop breathing while you sleep. Seeing your provider is important because sleep apnea can make you more likely t o have certain health problems. These include high blood pressure, heart attack, stroke, and sexual dysfunction. If you have sleep apnea, talk with your healthc are provider about the best treatments for you. [employer] last reviewed this educational content on 01/10/201919996993-6272 The [employer]. [address] [place] [address] 7. All rights reserved. This information is not intended as a substitute for pro fessional medical care. Always follow your healthcare professional's instruction s. ING MACHINE OPERATOR documented in this encounter Progress Notes * Taisha Raines MD - 07/02/2019 10:20 AM MUCKING MACHINE OPERATOR Date of Service: 07/02/2019 Subjective: Malathi Hurley is a 68 y.o. female who reports to Pulmonary Clinic on 2019 for evaluation and consultation of COPD and FERMIN. She is referred by Dr Carlos Castellano. For the purpose of our medical records, I will summarize her history. History of Present Illness Ms. Hurley diagnosed with sarcoidosis in May 2019 with biopsy done by her machine shop repair technician in [place]. Remebers a bronchoscopy March 16, 2019 (no endob ronchial lesions and no secretions) followed by dosing with prednisone. AFB cul ture and smear negative.Negative for fungus and bacterial pathogens.Also issues with atrial fibrillation and is on amiodarone and on eliquis. Lifelong non-smok er. 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 No edema on lasix. Diagnosed with MAXIM < 4 years ago. Was trying to get a new mask and had issues with supplier. Used it for > 1 year. Had asthma as a child with wheezing that was seasonal. Managed without any inhaler. Had two children with uncomplicated pregnancies. Did not start using inhaler until 2011. Had FERMIN. Was prescribed three different inhalers. Feels some benefit from them. Feels much better with diuresis. Review of Systems Constitutional: Positive for activity change, fatigue and unexpected weight schaffer ge. HENT: Positive for congestion and rhinorrhea. Negative for trouble swallowing an d voice change. Eyes: Negative for visual disturbance. Respiratory: Positive for shortness of breath. Cardiovascular: Positive for leg swelling. Negative for chest pain and palpitati ons. Gastrointestinal: Negative for constipation and diarrhea. Musculoskeletal: Negative for arthralgias and back pain. Skin: Negative for rash. Allergic/Immunologic: Positive for immunocompromised state. Negative for environ mental allergies. Neurological: Negative for headaches. Psychiatric/Behavioral: Positive for sleep disturbance. Negative for decreased c oncentration and dysphoric mood. .No Known Allergies Medications: Apixaban 5 mg daily Pacerone 200 mg daily Cartia XT 120 mg daily Advair 250/50 1 puff bid Lasix 20 mg daily Duoneb per nmt qid prn Lisinopril 10 mg daily Metolazone 5 mg daily prn Metoprolol 50 mg bid Surgical History: Bronchoscopy Family History Negative for sarcoidosis . Social History Socioeconomic History Marital status: Spouse name: Not on file Number of children: Not on file Years of education: Not on file Highest education level: Not on file Occupational History Not on file Tobacco Use Smoking status: nonsmoker Substance and Sexual Activity Alcohol use: Not on file Drug use: Not on file Sexual activity: Not on file Other Topics Concern Not on file Social History Narrative Not on file Physical Examination Vitals: 07/02/19 1006 BP: 97/64 Pulse: 81 Resp: 16 Temp: 36.2 C (97.2 F) SpO2: 95% on 3L pulse Weight: 98.4 kg (217 lb) Height: 160 cm (63") Body mass index is 38.44 kg/m. Physical Exam Constitutional: General: She is not in acute distress. Appearance: She is obese. She is not ill-appearing. Comments: Wearing nasal cannula oxygen Speaking in full sentences HENT: Nose: Nose normal. Mouth/Throat: Mouth: Mucous membranes are moist. Pharynx: Oropharynx is clear. Eyes: Conjunctiva/sclera: Conjunctivae normal. Neck: Musculoskeletal: Normal range of motion. Cardiovascular: Rate and Rhythm: Normal rate and regular rhythm. Pulses: Normal pulses. Heart sounds: Normal heart sounds. Pulmonary: Comments: Musical breath sounds with expiratory wheeze Abdominal: General: Bowel sounds are normal. Palpations: Abdomen is soft. Tenderness: There is no abdominal tenderness. Musculoskeletal: Normal range of motion. Right lower leg: Edema present. Left lower leg: Edema present. Skin: General: Skin is warm and dry. Neurological: General: No focal deficit present. Mental Status: She is oriented to person, place, and time. Psychiatric: Behavior: Behavior normal. Diagnostic Testing Esophagram April [address] chest without contrast March 2019 Significant improvement tree in bud ans compared with 2017. Tiny hiatal hernia. Multiple small (<5mm nodules) unchanged since 2017. Evidence of chronic granulomatous disease. Pulmonary Function Testing June 2019 - today Moderate obstructive ventilatory defect with mild impairment in gas exchange Assessment and Plan: Malathi Hurley is a 69 year old female with co-morbidities of moderate obstruc tive lung disease, untreated MAXIM, atrial fibrillation on amiodarone and chronic anticoagulation. She reports recent diagnosis of sarcoidosis - CT scan of the chest March 2019 as compared with 2017 actually much improved in regards to parenchymal lung dis ease and not suggestive of the sarcoidosis as a driving factor for her obstructi ve lung disease. Recommendations: 1) repeat sleep study to assess level of MAXIM - her prior study is too remote 2) obtain results of biopsies from bronchoscopy April 2019 - [facility] 3) continue advair, spiriva and albuterol as she is doing 4) I am concerned about her pre-syncope and her fall risk on anticoagulation - i n presence of her son and reiterated in the after visit summary, I recommended t hat she discuss her blood pressure medications with her assembler dc field yoke 5) we will contact her when we get there results of her bronchoscopy documented in this encounter Plan of Treatment Order Schedule Name Type Priority Associated Diag noses Ordered: 07/02/2019 AMB REFERRAL FOR SLEEP Outpatient Routine MAXIM and COPD overlap STUDIES 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
--- OUTSIDE RECORDS SUMMARY | 2019-10-28 21:03 | XMS REPORT | Encounter Summary ---
Author Author [facility] Organization [facility] Address Unknown Phone Unavailable Care Team Providers Care Sanitation Laborer Name Role Phone Carlos Castellano MD PCP Encounter Details Care Team Description Date Type Department OluTaisha john MD [address] [place], [place] [id number] 07/02/2019 [facility] [address] [facility] [address] [place], [place] [id number] Social History Date Tobacco Use Types Packs/Day [...] Procedure Name Priority Date/Time Associated Diag nosis PFT COMPLETE PULM Routine 07/02/2019 Chronic obst ructive FUNCTION 8:02 AM [employer] ADVISOR pulmonary disease, unspecified COPD type (HCC) documented in this encounter Results * PFT COMPLETE PULM FUNCTION (07/02/2019 8:02 AM [employer] ADVISOR) FVC-Pre 1.63 L [facility] FVC-%Pred-pre 72 % [facility] FEV1-Pre 1.19 L [facility] FEV1-%Pred-Pre 68 % [facility] FEV1/FVC-Pre 73 % [facility] [id number] 68 % [facility] [id number] 0.85 L/sec [facility] IKE5832-%Pred-P 51 % [facility] re RVPleth-Pre 1.58 L [facility] RVPleth-%Pred-P 87 % [facility] re TLCPleth-Pre 3.07 L [facility] TLCPleth-%Pred- 72 % [facility] Pre DLCOunc-Pre 10.47 ml/min/mmHg [facility] DLCOunc-%Pred-P 59 % [facility] re DLCOunc-#SD -1.910 ml/min/mmHg [facility] DLVA-Pred 3.87 ml/min/mmHg/L [facility] DLVA-Pre 3.43 ml/min/mmHg/L [facility] DLVA-%Pred-Pre 88 % [facility] DLVA-SD 0.80 ml/min/mmHg/L [facility] DLVA-LLN 2.27 ml/min/mmHg/L [facility] DLVA-ULN 5.47 ml/min/mmHg/L [facility] DLVA-#SD -0.550 ml/min/mmHg/L [facility] [id number] 67 % [facility] Specimen Narrative Performed At This result has an attachment that is n ot available. Performing Organization Address City/State/Zipcode Ph one Number [facility] [address] [place], [place] [address] documented in this encounter Visit Diagnoses Diagnosis Chronic obstructive pulmonary disease, unspecified COPD type (HCC) documented in this encounter
--- OUTSIDE RECORDS SUMMARY | 2019-10-28 21:03 | XMS REPORT | Encounter Summary ---
Author Author [facility] Organization [facility] Address Unknown Phone Unavailable Care Team Providers Care Clinical Social Work Aide Name Role Phone Carlos Castellano MD PCP Encounter Details Care Team Description Date Type Department OluTaisha john MD [address] [place] [address] SOB (shortness of breath) (Primary Dx) 07/02/2019 Orders Only [facility] [address] [place] [address] Social History Date Tobacco Use Types Packs/Day Years Used Never Assessed Sex Assigned at Date Recorded Not on file Industry Job Start Date Occupation Not on file Not on file Not on file Travel End Travel History Travel Start No recent travel history available. documented as of this encounter Plan of Treatment Not on filedocumented as of this encounter Results * CHEST 2 VIEWS (07/02/2019 9:14 AM ROUTE SALES TRAINEE) Specimen Impressions Performed At 1. Mild cardiomegaly [...] Interface, Radiant Results - 07/02/2019 11:24 AM ROUTE SALES TRAINEE Procedure: CHEST 2 VIEWS Clinical Indication: Shortness [...]
--- OUTSIDE RECORDS SUMMARY | 2019-10-28 21:03 | XMS REPORT | Clinical Summary ---
Author Author [facility] Organization [facility] Address Unknown Phone Unavailable Care Team Providers Care Bmw Sales Consultant Name Role Phone Carlos Castellano MD PCP Source Comments Some departments are not documenting in the electronic medical record. If you d o not see the information that you expected, contact Release of Information in [facility] [employer] Information Management department at [phone] for further assistan ce in locating additional records.[facility] Allergies No Known Allergies Medications Not on file Active Problems Not on file Encounters Care Team Description Date Type Specialty Taisha Raines MD Other 10/22/2019 Telephone Pulmonology from Last 3 Months Social History Date Tobacco Use Types Packs/Day Years Used Never Assessed Sex Assigned at Date Recorded Not on file Industry Job Start Date Occupation Not on file Not on file Not on file Travel End Travel History Travel Start No recent travel history available. Last Filed Vital Signs Reading Time Taken Comments Vital Sign 97/64 07/02/2019 10:06 AM GLASS POLISHER Blood Pressure 81 07/02/2019 10:06 AM GLASS POLISHER Pulse 36.2 C (97.2 F) 07/02/2019 10:06 AM GLASS POLISHER Temperature 16 07/02/2019 10:06 AM GLASS POLISHER Respiratory Rate 95% 07/02/2019 10:06 AM GLASS POLISHER 3 lpm Oxygen Saturation - - Inhaled Oxygen Concentration 98.4 kg (217 lb) 07/02/2019 10:06 AM GLASS POLISHER Weight 160 cm (5' 3") 07/02/2019 10:06 AM GLASS POLISHER Height 38.44 07/02/2019 10:06 AM GLASS POLISHER Body Mass Index Plan of Treatment Health Maintenance Due Date Last Done Comments DTAP/TDAP VACCINES (1 - 07/25/1969 Tdap) HEPATITIS C SCREENING 07/25/1969 PHYSICAL (COMPREHENSIVE) 07/25/1969 EXAM BREAST CANCER SCREENING 1991 COLORECTAL CANCER 07/25/2001 SCREENING SHINGLES RECOMBINANT 07/25/2001 VACCINE (1 of 2) OSTEOPOROSIS 07/25/2016 SCREENING/MONITORING PNEUMONIA (PPSV23) 07/25/2016 VACCINE (1 of 1 - PPSV23) INFLUENZA VACCINE 02/10/2020 05/27/2019 Results Not on filefrom Last 3 Months Insurance Type Payer Benefit Subscriber ID Effective Phone Address Plan / Dates Group PPO [employer]BS [employer] xxxxxxxxxxxx [id number] OUT OF resent STATE Advance Directives Patient Residential Real Estate Agent Explanation Type Date Recorded Advance Directive/DPOA
--- OUTSIDE RECORDS SUMMARY | 2019-10-28 21:06 | XMS REPORT | Continuity of Care Document ---
Author Organization Unknown Address Unknown Phone Unavailable Allergies Active Description Code Type Severity Reaction Onset Reported/Identified Relationship to Patient Clinical Status Yes NO KNOWN DRUG ALLERGIES UNKNOWN NO KNOWN DRUG ALLERG Yes NO KNOWN DRUG ALLERGIES UNKNOWN UNKNOWN Yes No Known Drug Allergies [id number] Drug Allergy Unknown N/A 11/03/2011 Medications There [...] Ot 135 06/13/2014 PHILLIP MADRIGAL DO Ot 278. 00 06/13/2014 PHILLIP MADRIGAL DO Ot 416. 8 06/13/2014 PHILLIP MADRIGAL DO Ot 425. 4 06/13/2014 PHILLIP MADRIGAL DO Ot 428. 43 06/13/2014 PHILLIP MADRIGAL DO Ot 493. 90 06/13/2014 PHILLIP MADRIGAL DO Ot 786. 09 06/13/2014 PHILLIP MADRIGAL DO Ot V57. 89 06/13/2014 PHILLIP MADRIGAL DO Ot 135 06/13/2014 PHILLIP MADRIGAL DO Ot 278. 00 06/13/2014 PHILLIP MADRIGAL DO Ot 416. 8 06/13/2014 PHILLIP MADRIGAL DO Ot 425. 4 06/13/2014 PHILLIP MADRIGAL DO Ot 428. 43 06/13/2014 PHILLIP MADRIGAL DO Ot 493. 90 06/13/2014 KAITLIN DO, PHILLIP M Ot 786. 09 06/13/2014 KAITLIN DO, PHILLIP M Ot V57. 89 06/16/2014 KAITLIN DO, PHILLIP M Ot 135 06/16/2014 KAITLIN DO, PHILLIP M Ot 278. 00 06/16/2014 KAITLIN DO, PHILLIP M Ot 416. 8 06/16/2014 KAITLIN DO, PHILLIP M Ot 425. 4 06/16/2014 KAITLIN DO, PHILLIP M Ot 428. 43 06/16/2014 KAITLIN DO, PHILLIP M Ot 493. 90 06/16/2014 KAITLIN DO, PHILLIP M Ot 786. 09 06/16/2014 KAITLIN DO, PHILLIP M Ot V57. 89 06/16/2014 KAITLIN DO, PHILLIP M Ot 135 06/16/2014 KAITLIN DO, PHILLIP M Ot 278. 00 06/16/2014 KAITLIN DO, PHILLIP M Ot 416. 8 06/16/2014 KAITLIN DO, PHILLIP M Ot 425. 4 06/16/2014 KAITLIN DO, PHILLIP M Ot 428. 43 06/16/2014 KAITLIN DO, PHILLIP M Ot 493. 90 06/16/2014 KAITLIN DO, PHILLIP M Ot 786. 09 06/16/2014 KAITLIN DO, PHILLIP M Ot V57. 89 06/16/2014 KAITLIN DO, PHILLIP M Ot 135 06/16/2014 KAITLIN DO, PHILLIP M Ot 278. 00 06/16/2014 KAITLIN DO, PHILLIP M Ot 416. 8 06/16/2014 KAITLIN DO, PHILLIP M Ot 425. 4 06/16/2014 KAITLIN DO, PHILLIP M Ot 428. 43 06/16/2014 KAITLIN DO, PHILLIP M Ot 493. 90 06/16/2014 KAITLIN DO, PHILLIP M Ot 786. 09 06/16/2014 KAITLIN DO, PHILLIP M Ot V57. 89 06/17/2014 KAITLIN DO, PHILLIP M Ot 135 06/17/2014 KAITLNI DO, PHILLIP M Ot 278. 00 06/17/2014 KAITLIN DO, PHILLIP M Ot 416. 8 06/17/2014 KAITLIN DO, PHILLIP M Ot 425. 4 06/17/2014 KAITLIN DO, PHILLIP M Ot 428. 43 06/17/2014 KAITLIN DO, PHILLIP M Ot 493. 90 06/17/2014 KAITLIN DO, PHILLIP M Ot 786. 09 06/17/2014 KAITLIN DO, PHILLIP M Ot V57. 89 06/20/2014 Ot 416.8 06/20/2014 Ot 425.4 06/20/2014 Ot 427.32 06/20/2014 Ot 428.0 06/20/2014 Ot V72.63 06/20/2014 Ot V72.81 06/20/2014 BAIMAVIRGIL L PIER WORKER Ot 397.0 06/20/2014 BAIMA, VIRGIL L PIER WORKER Ot 424.0 06/20/2014 BAIMA, VIRGIL L PIER WORKER Ot 425.4 06/20/2014 ARTHUR SUAREZ, BELLA Estrada Ot 135 06/20/2014 ARTHUR SUAREZ, BELLA S Ot 429. 3 06/20/2014 ARTHUR SUAREZ, BELLA S Ot 786. 05 06/20/2014 KAITLIN DO, PHILLIP M Ot 135 06/20/2014 KAITLIN DO, PHILLIP M Ot 416. 8 06/20/2014 KAITLIN DO, PHILLIP M Ot 425. 4 06/20/2014 KAITLIN DO, PHILLIP M Ot 428. 43 06/20/2014 KAITLIN DO, PHILLIP M Ot 429. 9 06/20/2014 KAITLIN DO, PHILLIP M Ot 493. 90 06/20/2014 KAITLIN DO, PHILLIP M Ot 135 06/20/2014 KAITLIN DO, PHILLIP M Ot 278. 00 06/20/2014 KAITLIN DO, PHILLIP M Ot 416. 8 06/20/2014 KAITLIN DO, PHILLIP M Ot 425. 4 06/20/2014 KAITLIN DO, PHILLIP M Ot 428. 43 06/20/2014 KAITLIN DO, PHILLIP M Ot 493. 90 06/20/2014 KAITLIN DO, PHILLIP M Ot 786. 09 06/20/2014 KAITLIN DO, PHILLIP M Ot V57. 89 06/20/2014 KAITLIN DO, PHILLIP M Ot 135 06/20/2014 KAITLIN DO, PHILLIP M Ot 278. 00 06/20/2014 KAITLIN DO, PHILLIP M Ot 416. 8 06/20/2014 KAITLIN DO, PHILLIP M Ot 425. 4 06/20/2014 KAITLIN DO, PHILLIP M Ot 428. 43 06/20/2014 KAITLIN DO, PHILLIP M Ot 493. 90 06/20/2014 KAITLIN DO, PHILLIP M Ot 786. 09 06/20/2014 KAITLIN JENNINGS, PHILLIP M Ot V57. 89 06/20/2014 KAITLIN DO, PHILLIP M Ot 135 06/20/2014 KAITLIN DO, PHILLIP M Ot 278. 00 06/20/2014 KAITLIN JENNINGS, PHILLIP M Ot 416. 8 06/20/2014 KAITLIN JENNINGS, PHILLIP M Ot 425. 4 06/20/2014 KAITLIN DO, PHILLIP M Ot 428. 43 06/20/2014 KAITLIN JENNINGS, PHILLIP M Ot 493. 90 06/20/2014 PHILLIP MADRIGAL DO M Ot 786. 09 06/20/2014 KAITLIN JENNINGS, PHILLIP M Ot V57. 89 06/23/2014 PHILLIP MADRIGAL DO M Ot 135 06/23/2014 PHILLIP MADRIGAL DO M Ot 278. 00 06/23/2014 KAITLIN JENNINGS, PHILLIP M Ot 416. 8 06/23/2014 KAITLIN JENNINGS, PHILLIP M Ot 425. 4 06/23/2014 KAITLIN DO, PHILLIP M Ot 428. 43 06/23/2014 KAITLIN DO, PHILLIP M Ot 493. 90 06/23/2014 KAITLIN JENNINGS, PHILLIP M Ot 786. 09 06/23/2014 KAITLIN JENNINGS, PHILLIP M Ot V57. 89 08/10/2014 KAITLIN JENNINGS, PHILLIP M Ot 135 08/10/2014 KAITLIN , PHILLIP M Ot 278. 00 08/10/2014 KAITLIN JENNINGS, PHILLIP M Ot 416. 8 08/10/2014 KAITLIN DO, PHILLIP M Ot 425. 4 08/10/2014 KAITLIN DO, PIHLLIP M Ot 428. 43 08/10/2014 KAITLIN DO, PHILLIP M Ot 493. 90 08/10/2014 KAITLIN , PHILLIP M Ot 786. 09 08/10/2014 KAITLIN , PHILLIP M Ot V57. 89 03/27/2016 THIAGO LONGO APRN Ot I51.7 CARDIOMEGALY 03/27/2016 THIAGO LONGO APRN Ot J45.909 UNSPECIFIED ASTHMA, UNCOMPLICATED 03/27/2016 THIAGO LONGO APRN Ot J98.11 ATELECTASIS 03/27/2016 THIAGO LONGO GEAR HOBBER SET UP OPERATOR Ot K80.20 CALCULUS OF GALLBLADDER W/O CHOLECYSTITI 03/27/2016 THIAGO LONGO GEAR HOBBER SET UP OPERATOR Ot R06.00 DYSPNEA, UNSPECIFIED 03/27/2016 THIAGO LONGO GEAR HOBBER SET UP OPERATOR Ot R59.0 LOCALIZED ENLARGED LYMPH NODES 04/11/2016 BAIMA, VIRGIL L PIER WORKER Ot I27.0 PRIMARY PULMONARY HYPERTENSION 04/11/2016 BAIMA, VIRGIL L PIER WORKER Ot I42.9 CARDIOMYOPATHY, UNSPECIFIED 04/11/2016 BAIMA, VIRGIL L PIER WORKER Ot I51.9 HEART DISEASE, UNSPECIFIED 04/11/2016 BAIMA, VIRGIL L PIER WORKER Ot R06.09 OTHER FORMS OF DYSPNEA 04/12/2016 BAIMA, VIRGIL L PIER WORKER Ot I27.0 PRIMARY PULMONARY HYPERTENSION 04/12/2016 BAIMA, VIRGIL L PIER WORKER Ot I42.9 CARDIOMYOPATHY, UNSPECIFIED 04/12/2016 BAIMA, VIRGIL L PIER WORKER Ot I51.9 HEART DISEASE, UNSPECIFIED 04/12/2016 BAIMA, VIRGIL L PIER WORKER Ot R06.09 OTHER FORMS OF DYSPNEA 04/24/2016 THIAGO LONGO GEAR HOBBER SET UP OPERATOR Ot I51.7 CARDIOMEGALY 04/24/2016 THIAGO LONGO GEAR HOBBER SET UP OPERATOR Ot J45.909 UNSPECIFIED ASTHMA, UNCOMPLICATED 04/24/2016 THIAGO LONGO GEAR HOBBER SET UP OPERATOR Ot J98.11 ATELECTASIS 04/24/2016 THIAGO LONGO GEAR HOBBER SET UP OPERATOR Ot K80.20 CALCULUS OF GALLBLADDER W/O CHOLECYSTITI 04/24/2016 THIAGO LONGO GEAR HOBBER SET UP OPERATOR Ot R06.00 DYSPNEA, UNSPECIFIED 04/24/2016 THIAGO LONGO GEAR HOBBER SET UP OPERATOR Ot R59.0 LOCALIZED ENLARGED LYMPH NODES 05/10/2016 BAIMA, VIRGIL L PIER WORKER Ot I27.0 PRIMARY PULMONARY HYPERTENSION 05/10/2016 BAIMA, VIRGIL L PIER WORKER Ot I42.9 CARDIOMYOPATHY, UNSPECIFIED 05/10/2016 BAIMA, VIRGIL L PIER WORKER Ot I51.9 HEART DISEASE, UNSPECIFIED 05/10/2016 BAIMA, VIRGIL L PIER WORKER Ot R06.09 OTHER FORMS OF DYSPNEA 04/10/2017 THIAGO LONGO GEAR HOBBER SET UP OPERATOR Ot I51.7 CARDIOMEGALY 04/10/2017 THIAGO LONGO APRN Ot J45.909 UNSPECIFIED ASTHMA, UNCOMPLICATED 04/10/2017 THIAGO LONGO GEAR HOBBER SET UP OPERATOR Ot J98.11 ATELECTASIS 04/10/2017 THIAGO LONGO GEAR HOBBER SET UP OPERATOR Ot K80.20 CALCULUS OF GALLBLADDER W/O CHOLECYSTITI 04/10/2017 THIAGO LONGO GEAR HOBBER SET UP OPERATOR Ot R06.00 DYSPNEA, UNSPECIFIED 04/10/2017 THIAGO LONGO GEAR HOBBER SET UP OPERATOR Ot R59.0 LOCALIZED ENLARGED LYMPH NODES 04/10/2017 CLEMENTEVIRGIL Omaira PIER WORKER Ot I27.0 PRIMARY PULMONARY HYPERTENSION 04/10/2017 VIRGIL CORNEJO PIER WORKER Ot I42.9 CARDIOMYOPATHY, UNSPECIFIED 04/10/2017 CLEMENTE VIRGIL Omaira PIER WORKER Ot I51.9 HEART DISEASE, UNSPECIFIED 04/10/2017 CLEMENTE VIRGIL L PIER WORKER Ot R06.09 OTHER FORMS OF DYSPNEA 04/17/2017 PHILLIP MADRIGAL DO Ot E66. 9 OBESITY, UNSPECIFIED 04/17/2017 PHILLIP MADRIGAL DO Ot I50. 43 ACUTE ON CHRONIC COMBINED SYSTOLIC AND D 04/17/2017 PHILLIP MADRIGAL DO Ot N17. 9 ACUTE KIDNEY FAILURE, UNSPECIFIED 04/17/2017 PHILLIP MADRIGAL DO Ot R91. 8 OTHER NONSPECIFIC ABNORMAL FINDING OF 04/17/2017 PHILLIP MADRIGAL DO Ot Z87. 09 PERSONAL HISTORY OF OTHER DISEASES OF 04/24/2017 PHILLIP MADRIGAL DO Ot E66. 9 OBESITY, UNSPECIFIED 04/24/2017 PHILLIP MARDIGAL DO M Ot I50. 43 ACUTE ON CHRONIC COMBINED SYSTOLIC AND D 04/24/2017 PHILLIP MADRIGAL DO Ot N17. 9 ACUTE KIDNEY FAILURE, UNSPECIFIED 04/24/2017 PHILLIP MADRIGAL DO Ot R91. 8 OTHER NONSPECIFIC ABNORMAL FINDING OF 04/24/2017 PHILLIP MADRIGAL DO Ot Z87. 09 PERSONAL HISTORY OF OTHER DISEASES OF 06/25/2017 SARAH SUAREZ FACC, HENRY YATESP CCDS Ot E66.8 OTHER OBESITY 06/25/2017 SARAH SUAREZ FACC, HENRY FACP CCDS Ot I27.0 PRIMARY PULMONARY HYPERTENSION 06/25/2017 SARAH SUAREZ FACC, ALI FACP CCDS Ot I42.0 DILATED CARDIOMYOPATHY 06/25/2017 SARAH SUAREZ [facility], ALI FACP CCDS Ot I48.92 UNSPECIFIED ATRIAL FLUTTER 06/25/2017 SARAH SUAREZ [facility], ALI FACP CCDS Ot 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 06/25/2017 SARAH SUAREZ [facility], ALI FACP CCDS Ot N18.3 CHRONIC KIDNEY DISEASE, STAGE 3 (MODERAT 06/25/2017 SARAH SUAREZ [facility], ALI FACP CCDS Ot R91.1 SOLITARY PULMONARY NODULE 07/30/2017 MARY DE LOS SANTOS MD Ot D64 .9 ANEMIA, UNSPECIFIED 07/30/2017 DOUG DE LOS SANTOS MDMAD Ot I27.20 PULMONARY HYPERTENSION, UNSPECIFIED 07/30/2017 MARY DE LOS SANTOS MD Ot I50 .9 HEART FAILURE, UNSPECIFIED 07/30/2017 MARY DE LOS SANTOS MD Ot N18 .4 CHRONIC KIDNEY DISEASE, STAGE 4 (SEVERE) 08/08/2017 MARY DE LOS SANTOS MD Ot D64 .9 ANEMIA, UNSPECIFIED 08/08/2017 DOUG DE LOS SANTOS MDMAD Ot I27.20 PULMONARY HYPERTENSION, UNSPECIFIED 08/08/2017 DOUG DE LOS SANTOS MDMAD Ot I50 .9 HEART FAILURE, UNSPECIFIED 08/08/2017 MARY DE LOS SANTOS MD Ot N18 .4 CHRONIC KIDNEY DISEASE, STAGE 4 (SEVERE) 11/05/2017 MARY DE LOS SANTOS MD Ot D64 .9 ANEMIA, UNSPECIFIED 11/05/2017 MARY DE LOS SANTOS MD Ot I27.20 PULMONARY HYPERTENSION, UNSPECIFIED 11/05/2017 MARY DE LOS SANTOS MD Ot I50 .9 HEART FAILURE, UNSPECIFIED 11/05/2017 MARY DE LOS SANTOS MD Ot N18 .4 CHRONIC KIDNEY DISEASE, STAGE 4 (SEVERE) 11/25/2017 THIAGO LONGO APRN Ot J45.901 UNSPECIFIED ASTHMA WITH (ACUTE) EXACERBA 12/01/2017 THIAGO LONGO APRN Ot I51.7 CARDIOMEGALY 12/01/2017 THAIGO LONGO APRN Ot J45.909 UNSPECIFIED ASTHMA, UNCOMPLICATED 12/01/2017 THIAGO LONGO APRN Ot J98.11 ATELECTASIS 12/01/2017 THIAGO LONGO APRN Ot K80.20 CALCULUS OF GALLBLADDER W/O CHOLECYSTITI 12/01/2017 THIAGO LONGO APRN Ot R06.00 DYSPNEA, UNSPECIFIED 12/01/2017 THIAGO LONGO GEAR HOBBER SET UP OPERATOR Ot R59.0 LOCALIZED ENLARGED LYMPH NODES 12/01/2017 CLEMENTEVIRGIL Omaira PIER WORKER Ot I27.0 PRIMARY PULMONARY HYPERTENSION 12/01/2017 VIRGIL CORNEJO PIER WORKER Ot I42.9 CARDIOMYOPATHY, UNSPECIFIED 12/01/2017 CLEMENTE VIRGIL L PIER WORKER Ot I51.9 HEART DISEASE, UNSPECIFIED 12/01/2017 CLEMENTE VIRGIL Omaira PIER WORKER Ot R06.09 OTHER FORMS OF DYSPNEA 12/01/2017 PHILLIP MADRIGAL DO Ot E66. 9 OBESITY, UNSPECIFIED 12/01/2017 PHILLIP MADRIGAL DO Ot I50. 43 ACUTE ON CHRONIC COMBINED SYSTOLIC AND D 12/01/2017 PHILLIP MADRIGAL DO, Ot N17. 9 ACUTE KIDNEY FAILURE, UNSPECIFIED 12/01/2017 PHILLIP MADRIGAL DO Ot R91. 8 OTHER NONSPECIFIC ABNORMAL FINDING OF 12/01/2017 PHILLIP MADRIGAL DO Ot Z87. 09 PERSONAL HISTORY OF OTHER DISEASES OF TH 12/01/2017 ASRAH SUAREZ FACC, HENRY FACP CCDS Ot E66.8 OTHER OBESITY 12/01/2017 SARAH SUAREZ FACC, ALI FACP CCDS Ot I27.0 PRIMARY PULMONARY HYPERTENSION 12/01/2017 SARAH SUAREZ FACC, ALI FACP CCDS Ot I42.0 DILATED CARDIOMYOPATHY 12/01/2017 SARAH SUAREZ FACC, ALI FACP CCDS Ot I48.92 UNSPECIFIED ATRIAL FLUTTER 12/01/2017 SARAH SUAREZ FACC, ALI FACP CCDS Ot 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 12/01/2017 SARAH SUAREZ FACC, ALI FACP CCDS Ot N18.3 CHRONIC KIDNEY DISEASE, STAGE 3 (MODERAT 12/01/2017 SARAH SUAREZ FACC, ALI FACP CCDS Ot R91.1 SOLITARY PULMONARY NODULE 12/01/2017 MAGALI SUAREZ, MARY Clark D64 .9 ANEMIA, UNSPECIFIED 12/01/2017 MARY DE LOS SANTOS MD, Ot I27.20 PULMONARY HYPERTENSION, UNSPECIFIED 12/01/2017 MARY DE LOS SANTOS MD Ot I50 .9 HEART FAILURE, UNSPECIFIED 12/01/2017 MARY DE LOS SANTOS MD Ot N18 .4 CHRONIC KIDNEY DISEASE, STAGE 4 (SEVERE) 12/01/2017 [...] BREATH 12/05/2017 JERI GUTIERRES MD Ot Z79.01 FDC (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 OF ANTICOAGULANT 12/05/2017 JERI GUTIERRES MD Ot Z79.51 FDC (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 OF INHALED STERO 12/05/2017 JERI GUTIERRES MD Ot Z90.710 ACQUIRED ABSENCE OF BOTH CERVIX AND UTER 12/08/2017 JERI GUTIERRES MD Ot I48.91 UNSPECIFIED ATRIAL FIBRILLATION 12/08/2017 JERI GUTIERRES MD Ot I50.9 HEART FAILURE, UNSPECIFIED 12/08/2017 JERI GUTIERRES MD Ot J44.1 CHRONIC OBSTRUCTIVE PULMONARY DISEASE W 12/08/2017 JERI GUTIERRES MD Ot R06.02 SHORTNESS OF BREATH 12/08/2017 JERI GUTIERRES MD Ot 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 12/08/2017 JERI GUTIERRES MD Ot 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 12/08/2017 JERI GUTIERRES MD Ot Z90.710 ACQUIRED ABSENCE OF BOTH CERVIX AND UTER 12/10/2017 Ot I48.91 UNS PECIFIED ATRIAL FIBRILLATION 12/10/2017 Ot I50.9 HEAR T FAILURE, UNSPECIFIED 12/10/2017 Ot J18.1 LOBA R PNEUMONIA, UNSPECIFIED ORGANISM 12/10/2017 Ot J44.9 CORPORATE TREASURY ANALYST ZEV OBSTRUCTIVE PULMONARY DISEASE, U 12/10/2017 Ot R06.02 ALEXANDRA RTNESS OF BREATH 12/10/2017 Ot Z79.01 MALATHI G TERM (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 OF ANTICOAGULANT 12/10/2017 Ot Z90.710 AC QUIRED ABSENCE OF BOTH CERVIX AND UTER 12/10/2017 W 428.0 AG ESTIVE HEART FAILURE, UNSPECIFIED 12/10/2017 W 729.81 SWE LLING OF LIMB 12/10/2017 W 780.79 OTH ER MALAISE AND FATIGUE 12/10/2017 W 785.0 TACH YCARDIA, UNSPECIFIED 12/10/2017 W 786.09 OTH ER DYSPNEA AND RESPIRATORY ABNORMALITY 12/10/2017 W I50.9 HEAR T FAILURE, UNSPECIFIED 12/10/2017 W M79.89 OTH ER SPECIFIED SOFT TISSUE DISORDERS 12/10/2017 W R00.0 TACH YCARDIA, UNSPECIFIED 12/10/2017 W R06.02 ALEXANDRA RTNESS OF BREATH 12/10/2017 W R53.83 OTH ER FATIGUE 12/19/2017 W 428.43 ACU TE ON CHRONIC COMBINED SYSTOLIC AND DIASTOLIC HEART FAILURE 12/19/2017 W 491.21 OBS TRUCTIVE CHRONIC BRONCHITIS WITH (ACUTE) EXACERBATION 12/19/2017 W I50.43 ACU TE ON CHRONIC COMBINED SYSTOLIC (CONGESTIVE) AND DIASTOLIC (CONGESTIVE) HEART FAILURE 12/19/2017 W J44.1 CORPORATE TREASURY ANALYST ZEV OBSTRUCTIVE PULMONARY DISEASE WITH (ACUTE) EXACERBATION 12/21/2017 THIAGO LONGO APRN Ot D86.0 SARCOIDOSIS OF LUNG 12/21/2017 THIAGO LONGO APRN Ot G47.10 HYPERSOMNIA, UNSPECIFIED 12/21/2017 THIAGO LONGO APRN Ot G47.50 PARASOMNIA, UNSPECIFIED 12/21/2017 THIAGO LONGO APRN Ot J45.909 UNSPECIFIED ASTHMA, UNCOMPLICATED 12/21/2017 THIAGO LONGO APRN Ot R09.02 HYPOXEMIA 12/21/2017 THIAGO LONGO APRN Ot R29.818 OTHER SYMPTOMS AND SIGNS INVOLVING THE N 12/23/2017 W 428.32 CHR ONIC DIASTOLIC HEART FAILURE 12/23/2017 W 486 PNEUMO KARMA, ORGANISM UNSPECIFIED 12/23/2017 W I50.32 CHR ONIC DIASTOLIC (CONGESTIVE) HEART FAILURE 12/23/2017 W J18.9 PNEU MONIA, UNSPECIFIED ORGANISM 12/24/2017 Levin, Gem-Eric W 428.32 [...] Levin, Gem-Eric W J18.9 PNEUMONIA, UNSPECIFIED ORGANISM 01/01/2018 THIAGO LONGO GEAR HOBBER SET UP OPERATOR Ot J45.901 UNSPECIFIED ASTHMA WITH (ACUTE) EXACERBA 01/01/2018 THIAGO LONGO GEAR HOBBER SET UP OPERATOR Ot M79.89 OTHER SPECIFIED SOFT TISSUE DISORDERS 01/01/2018 THIAGO LONGO GEAR HOBBER SET UP OPERATOR Ot R91.8 OTHER NONSPECIFIC ABNORMAL FINDING OF 01/01/2018 THIAGO LONGO GEAR HOBBER SET UP OPERATOR Ot J45.901 UNSPECIFIED ASTHMA WITH (ACUTE) EXACERBA 01/08/2018 THIAGO LONGO GEAR HOBBER SET UP OPERATOR Ot J45.901 UNSPECIFIED ASTHMA WITH (ACUTE) EXACERBA 01/08/2018 THIAGO LONGO GEAR HOBBER SET UP OPERATOR Ot M79.89 OTHER SPECIFIED SOFT TISSUE DISORDERS 01/08/2018 THIAGO LONGO GEAR HOBBER SET UP OPERATOR Ot R91.8 OTHER NONSPECIFIC ABNORMAL FINDING OF 01/29/2018 W 705.83 HID RADENITIS 01/29/2018 W L73.2 HIDR ADENITIS SUPPURATIVA 02/03/2018 SARAH SUAREZ FACC, HENRY YATESP CCDS Ot E66.8 OTHER OBESITY 02/03/2018 SARAH MD FACC, ALI FACP CCDS Ot I27.0 PRIMARY PULMONARY HYPERTENSION 02/03/2018 SARAH SUAREZ FACC, ALI FACP CCDS Ot I42.0 DILATED CARDIOMYOPATHY 02/03/2018 SARAH SUAREZ FACC, HENRY FACP CCDS Ot I48.92 UNSPECIFIED ATRIAL FLUTTER 02/03/2018 SARAH SUAREZ FACC, ALI FACP CCDS Ot 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 02/03/2018 SARAH SUAREZ FACC, HENRY FACP CCDS Ot N18.3 CHRONIC KIDNEY DISEASE, STAGE 3 (MODERAT 02/03/2018 SARAH SUAREZ FACC, HENRY FACP CCDS Ot R91.1 SOLITARY PULMONARY NODULE 02/03/2018 W 705.83 HID RADENITIS 02/03/2018 W L73.2 HIDR ADENITIS SUPPURATIVA 02/17/2018 MARY DE LOS SANTOS MD, Ot D64 .9 ANEMIA, UNSPECIFIED 02/17/2018 MARY DE LOS SANTOS MD, Ot I27.20 PULMONARY HYPERTENSION, UNSPECIFIED 02/17/2018 MARY DE LOS SANTOS MD, Ot I50 .9 HEART FAILURE, UNSPECIFIED 02/17/2018 MARY DE LOS ASNTOS MD Ot N18 .4 CHRONIC KIDNEY DISEASE, STAGE 4 (SEVERE) 03/18/2018 JERI GUTIERRES MD Ot I48.91 UNSPECIFIED ATRIAL FIBRILLATION 03/18/2018 JERI GUTIERRES MD, Ot I50.9 HEART FAILURE, UNSPECIFIED 03/18/2018 JERI GUTIERRES MD, Ot J44.1 CHRONIC OBSTRUCTIVE PULMONARY DISEASE W 03/18/2018 JERI GUTIERRES MD Ot R06.02 SHORTNESS OF BREATH 03/18/2018 JERI GUTIERRES MD, Ot Z79.01 FDC (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 OF ANTICOAGULANT 03/18/2018 JERI GUTIERRES MD, Ot 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 03/18/2018 JERI GUTIERRES MD Ot Z90.710 ACQUIRED ABSENCE OF BOTH CERVIX AND UTER 09/22/2018 SARAH SUAREZ FACC, HENRY FACP CCDS Ot G47.33 OBSTRUCTIVE SLEEP APNEA (ADULT) (PEDIATR 09/22/2018 SARAH MD FACC, ALI FACP CCDS Ot I27.20 PULMONARY HYPERTENSION, UNSPECIFIED 09/22/2018 SARAH SUAREZ FACC, ALI FACP CCDS Ot I42.9 CARDIOMYOPATHY, UNSPECIFIED 09/22/2018 SARAH SUAREZ FACC, ALI FACP CCDS Ot I44.7 LEFT BUNDLE-BRANCH BLOCK, UNSPECIFIED 09/22/2018 SARAH SUAREZ FACC, ALI FACP CCDS Ot I48.92 UNSPECIFIED ATRIAL FLUTTER 09/22/2018 SARAH SUAREZ FACC, ALI FACP CCDS Ot 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 09/22/2018 SARAH YATESC, ALI FACP CCDS Ot J45.909 UNSPECIFIED ASTHMA, UNCOMPLICATED 09/22/2018 SARAH SUAREZ FACC, ALI FACP CCDS Ot N18.3 CHRONIC KIDNEY DISEASE, STAGE 3 (MODERAT 09/22/2018 SARAH YATESC, ALI FACP CCDS Ot Z79.01 FDC (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 OF ANTICOAGULANT 09/22/2018 SARAH SUAREZ FACC, ALI FACP CCDS Ot Z79.899 OTHER FDC (CURRENT) DRUG THERAPY 09/22/2018 SARAH SUAREZ FACC, ALI FACP CCDS Ot Z95.810 PRESENCE OF AUTOMATIC (IMPLANTABLE) CARD 09/24/2018 SARAH SUAREZ FACC, ALI FACP CCDS Ot I27.20 PULMONARY HYPERTENSION, UNSPECIFIED 09/24/2018 SARAH SUAREZ FACC, ALI FACP CCDS Ot I42.9 CARDIOMYOPATHY, UNSPECIFIED 09/24/2018 SARAH YATESC, ALI FACP CCDS Ot I44.7 LEFT BUNDLE-BRANCH [...] SUAREZ FACC, ALI FACP CCDS Ot 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 09/24/2018 SARAH MD FACC, ALI FACP CCDS Ot Z95.810 PRESENCE OF AUTOMATIC (IMPLANTABLE) CARD 09/24/2018 SARAH SUAREZ FACC, ALI FACP CCDS Ot I27.20 PULMONARY HYPERTENSION, UNSPECIFIED 09/24/2018 SARAH YATESC, ALI FACP CCDS Ot I42.9 CARDIOMYOPATHY, UNSPECIFIED [...] SUAREZ FACC, ALI FACP CCDS Ot Z79.01 FDC (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 OF ANTICOAGULANT 09/24/2018 SARAH SUAREZ FACC, ALI FACP CCDS Ot Z95.810 PRESENCE OF AUTOMATIC (IMPLANTABLE) CARD 09/29/2018 SARAH SUAREZ FACC, ALI FACP CCDS Ot G47.33 OBSTRUCTIVE SLEEP APNEA (ADULT) (PEDIATR 09/29/2018 SARAH SUAREZ FACC, ALI FACP CCDS Ot I27.20 PULMONARY HYPERTENSION, UNSPECIFIED 09/29/2018 SARAH YATESC, ALI FACP CCDS Ot I42.9 CARDIOMYOPATHY, UNSPECIFIED 09/29/2018 SARAH SUAREZ FACC, ALI FACP CCDS Ot I44.7 LEFT BUNDLE-BRANCH BLOCK, UNSPECIFIED 09/29/2018 SARAH SUAREZ FACC, ALI FACP CCDS Ot I48.92 UNSPECIFIED ATRIAL FLUTTER 09/29/2018 SARAH SUAREZ FACC, ALI FACP CCDS Ot 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 09/29/2018 SARAH YATESC, ALI FACP CCDS Ot J45.909 UNSPECIFIED ASTHMA, UNCOMPLICATED 09/29/2018 SARAH SUAREZ FACC, ALI FACP CCDS Ot N18.3 CHRONIC KIDNEY DISEASE, STAGE 3 (MODERAT 09/29/2018 SARAH YATESC, ALI FACP CCDS Ot 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 09/29/2018 SARAH SUAREZ [facility] [place] CCDS Ot Z79.899 OTHER FDC (CURRENT) DRUG THERAPY 09/29/2018 SARAH SUAREZ [facility] CCDS Ot Z95.810 PRESENCE OF AUTOMATIC (IMPLANTABLE) CARD 10/01/2018 THIAGO LONGO APRN Ot D86.0 SARCOIDOSIS OF LUNG 10/01/2018 THIAGO LONGO GEAR HOBBER SET UP OPERATOR Ot I50.43 ACUTE ON CHRONIC COMBINED SYSTOLIC AND D 10/01/2018 THIAGO LONGO GEAR HOBBER SET UP OPERATOR Ot J45.909 UNSPECIFIED ASTHMA, UNCOMPLICATED 10/01/2018 THIAGO LONGO APRN Ot R91.1 SOLITARY PULMONARY NODULE 10/01/2018 VIRGIL CORNEJO PIER WORKER Ot I50.9 HEART FAILURE, UNSPECIFIED 10/01/2018 VIRGIL CORNEJO PIER WORKER Ot T50.2X5A ADVRS EFF OF CRBNC-ANHYDR INHIBTR, BENZO 10/01/2018 W 428.0 AG ESTIVE HEART FAILURE, UNSPECIFIED 10/01/2018 W 491.20 OBS TRUCTIVE CHRONIC BRONCHITIS, WITHOUT EXACERBATION 10/01/2018 W I50.9 HEAR T FAILURE, UNSPECIFIED 10/01/2018 W J44.9 CORPORATE TREASURY ANALYST ZEV OBSTRUCTIVE PULMONARY DISEASE, UNSPECIFIED 10/28/2018 THIAGO LONGO APRN Ot D86.0 SARCOIDOSIS OF LUNG 10/28/2018 THIAGO LONGO APRN Ot I50.43 ACUTE ON CHRONIC COMBINED SYSTOLIC AND D 10/28/2018 THIAGO LONGO GEAR HOBBER SET UP OPERATOR Ot J45.909 UNSPECIFIED ASTHMA, UNCOMPLICATED 10/28/2018 THIAGO LONGO GEAR HOBBER SET UP OPERATOR Ot R91.1 SOLITARY PULMONARY NODULE 10/28/2018 VIRGIL CORNEJO PIER WORKER Ot I50.9 HEART FAILURE, UNSPECIFIED 10/28/2018 VIRGIL CORNEJO PIER WORKER Ot T50.2X5A ADVRS EFF OF CRBNC-ANHYDR INHIBTR, BENZO 11/03/2018 HTIAGO LONGO GEAR HOBBER SET UP OPERATOR Ot G47.33 OBSTRUCTIVE SLEEP APNEA (ADULT) (PEDIATR 11/03/2018 THIAGO LONGO APRN Ot J44.9 CHRONIC OBSTRUCTIVE PULMONARY DISEASE, U 11/03/2018 THIAGO LONGO APRN Ot J45.909 UNSPECIFIED ASTHMA, UNCOMPLICATED 11/03/2018 DONTA, THIAGO E GEAR HOBBER SET UP OPERATOR Ot R06.00 DYSPNEA, UNSPECIFIED 11/03/2018 DONTA, THIAGO E GEAR HOBBER SET UP OPERATOR Ot R91.1 SOLITARY PULMONARY NODULE 11/05/2018 SANTI LONGOINE E GEAR HOBBER SET UP OPERATOR Ot G47.33 OBSTRUCTIVE SLEEP APNEA (ADULT) (PEDIATR 11/05/2018 SANTI LONGOINE E GEAR HOBBER SET UP OPERATOR Ot J44.9 CHRONIC OBSTRUCTIVE PULMONARY DISEASE, U 11/05/2018 SANTI LONGOINE E GEAR HOBBER SET UP OPERATOR Ot J45.909 UNSPECIFIED ASTHMA, UNCOMPLICATED 11/05/2018 THIAGO LONGO GEAR HOBBER SET UP OPERATOR Ot R06.00 DYSPNEA, UNSPECIFIED 11/05/2018 DONTATHIAGO PONCE E GEAR HOBBER SET UP OPERATOR Ot R91.1 SOLITARY PULMONARY NODULE 11/10/2018 THIAGO LONGO GEAR HOBBER SET UP OPERATOR Ot G47.33 OBSTRUCTIVE SLEEP APNEA (ADULT) (PEDIATR 11/10/2018 THIAGO LONGO GEAR HOBBER SET UP OPERATOR Ot J44.9 CHRONIC OBSTRUCTIVE PULMONARY DISEASE, U 11/10/2018 THIAGO LONGO GEAR HOBBER SET UP OPERATOR Ot J45.909 UNSPECIFIED ASTHMA, UNCOMPLICATED 11/10/2018 THIAGO LONGO GEAR HOBBER SET UP OPERATOR Ot R06.00 DYSPNEA, UNSPECIFIED 11/10/2018 THIAGO LONGO GEAR HOBBER SET UP OPERATOR Ot R91.1 SOLITARY PULMONARY NODULE 11/13/2018 VIRGIL CORNEJO PIER WORKER Ot I50.9 HEART FAILURE, UNSPECIFIED 11/13/2018 VIRGIL CORNEJO PIER WORKER Ot T50.2X5A ADVRS EFF OF BN-ANHYDR INHIBTR, BENZO 11/17/2018 THIAGO LONGO GEAR HOBBER SET UP OPERATOR Ot G47.33 OBSTRUCTIVE SLEEP APNEA (ADULT) (PEDIATR 11/17/2018 SANTI LONGOINE E GEAR HOBBER SET UP OPERATOR Ot J44.9 CHRONIC OBSTRUCTIVE PULMONARY DISEASE, U 11/17/2018 SANTI LONGOINE E GEAR HOBBER SET UP OPERATOR Ot J45.909 UNSPECIFIED ASTHMA, UNCOMPLICATED 11/17/2018 DONTATHIAGO PONCE GEAR HOBBER SET UP OPERATOR Ot R06.00 DYSPNEA, UNSPECIFIED 11/17/2018 DONTA THIAGO E GEAR HOBBER SET UP OPERATOR Ot R91.1 SOLITARY PULMONARY NODULE 11/17/2018 SANTI LONGOINE E GEAR HOBBER SET UP OPERATOR Ot G47.33 OBSTRUCTIVE SLEEP APNEA (ADULT) (PEDIATR 11/17/2018 THIAGO LONGO E GEAR HOBBER SET UP OPERATOR Ot J44.9 CHRONIC OBSTRUCTIVE PULMONARY DISEASE, U 11/17/2018 THIAGO LONGO GEAR HOBBER SET UP OPERATOR Ot J45.909 UNSPECIFIED ASTHMA, UNCOMPLICATED 11/17/2018 THIAGO LONGO GEAR HOBBER SET UP OPERATOR Ot R06.00 DYSPNEA, UNSPECIFIED 11/17/2018 SANTI LONGOINE Wen GEAR HOBBER SET UP OPERATOR Ot R91.1 SOLITARY PULMONARY NODULE 11/17/2018 THIAGO LONGO GEAR HOBBER SET UP OPERATOR Ot D86.0 SARCOIDOSIS OF LUNG 11/17/2018 THIAGO LONGO GEAR HOBBER SET UP OPERATOR Ot I50.43 ACUTE ON CHRONIC COMBINED SYSTOLIC AND D 11/17/2018 THIAGO LONGO GEAR HOBBER SET UP OPERATOR Ot J45.909 UNSPECIFIED ASTHMA, UNCOMPLICATED 11/17/2018 THIAGO LONGO GEAR HOBBER SET UP OPERATOR Ot R91.1 SOLITARY PULMONARY NODULE 11/19/2018 THIAGO LONGO GEAR HOBBER SET UP OPERATOR Ot G47.33 OBSTRUCTIVE SLEEP APNEA (ADULT) (PEDIATR 11/19/2018 THIAGO LONGO GEAR HOBBER SET UP OPERATOR Ot J44.9 CHRONIC OBSTRUCTIVE PULMONARY DISEASE, U 11/19/2018 THIAGO LONGO GEAR HOBBER SET UP OPERATOR Ot J45.909 UNSPECIFIED ASTHMA, UNCOMPLICATED 11/19/2018 THIAGO LONGO GEAR HOBBER SET UP OPERATOR Ot R06.00 DYSPNEA, UNSPECIFIED 11/19/2018 THIAGO LONGO GEAR HOBBER SET UP OPERATOR Ot R91.1 SOLITARY PULMONARY NODULE 11/24/2018 THIAGO LONGO GEAR HOBBER SET UP OPERATOR Ot G47.33 OBSTRUCTIVE SLEEP APNEA (ADULT) (PEDIATR 11/24/2018 THIAGO LONGO GEAR HOBBER SET UP OPERATOR Ot J44.9 CHRONIC OBSTRUCTIVE PULMONARY DISEASE, U 11/24/2018 THIAGO LONGO GEAR HOBBER SET UP OPERATOR Ot J45.909 UNSPECIFIED ASTHMA, UNCOMPLICATED 11/24/2018 THIAGO LONGO GEAR HOBBER SET UP OPERATOR Ot R06.00 DYSPNEA, UNSPECIFIED 11/24/2018 THIAGO LONGO GEAR HOBBER SET UP OPERATOR Ot R91.1 SOLITARY PULMONARY NODULE 11/26/2018 THIAGO LONGO GEAR HOBBER SET UP OPERATOR Ot G47.33 OBSTRUCTIVE SLEEP APNEA (ADULT) (PEDIATR 11/26/2018 THIAGO LONGO GEAR HOBBER SET UP OPERATOR Ot J44.9 CHRONIC OBSTRUCTIVE PULMONARY DISEASE, U 11/26/2018 THIAGO LONGO GEAR HOBBER SET UP OPERATOR Ot J45.909 UNSPECIFIED ASTHMA, UNCOMPLICATED 11/26/2018 THIAGO LONGO GEAR HOBBER SET UP OPERATOR Ot R06.00 DYSPNEA, UNSPECIFIED 11/26/2018 SANTI LONGOINE E GEAR HOBBER SET UP OPERATOR Ot R91.1 SOLITARY PULMONARY NODULE 12/01/2018 DONTA, THIAGO E GEAR HOBBER SET UP OPERATOR Ot G47.33 OBSTRUCTIVE SLEEP APNEA (ADULT) (PEDIATR 12/01/2018 SANTI LONGOINE E GEAR HOBBER SET UP OPERATOR Ot J44.9 CHRONIC OBSTRUCTIVE PULMONARY DISEASE, U 12/01/2018 SANTI LONGOINE E GEAR HOBBER SET UP OPERATOR Ot J45.909 UNSPECIFIED ASTHMA, UNCOMPLICATED 12/01/2018 DONTA, THIAGO E GEAR HOBBER SET UP OPERATOR Ot R06.00 DYSPNEA, UNSPECIFIED 12/01/2018 DONTA, THIAGO E GEAR HOBBER SET UP OPERATOR Ot R91.1 SOLITARY PULMONARY NODULE 12/03/2018 SANTI LONGOINE E GEAR HOBBER SET UP OPERATOR Ot G47.33 OBSTRUCTIVE SLEEP APNEA (ADULT) (PEDIATR 12/03/2018 SANTI LONGOINE E GEAR HOBBER SET UP OPERATOR Ot J44.9 CHRONIC OBSTRUCTIVE PULMONARY DISEASE, U 12/03/2018 SANTI LONGOINE E GEAR HOBBER SET UP OPERATOR Ot J45.909 UNSPECIFIED ASTHMA, UNCOMPLICATED 12/03/2018 SANTI LONGOINE E GEAR HOBBER SET UP OPERATOR Ot R06.00 DYSPNEA, UNSPECIFIED 12/03/2018 SANTI LONGOINE E GEAR HOBBER SET UP OPERATOR Ot R91.1 SOLITARY PULMONARY NODULE 12/08/2018 THIAGO LONGO GEAR HOBBER SET UP OPERATOR Ot G47.33 OBSTRUCTIVE SLEEP APNEA (ADULT) (PEDIATR 12/08/2018 THIAGO LONGO E GEAR HOBBER SET UP OPERATOR Ot J44.9 CHRONIC OBSTRUCTIVE PULMONARY DISEASE, U 12/08/2018 DONTA, THIAGO E GEAR HOBBER SET UP OPERATOR Ot J45.909 UNSPECIFIED ASTHMA, UNCOMPLICATED 12/08/2018 SANTI LONGOINE E GEAR HOBBER SET UP OPERATOR Ot R06.00 DYSPNEA, UNSPECIFIED 12/08/2018 SANTI LONGOINE E GEAR HOBBER SET UP OPERATOR Ot R91.1 SOLITARY PULMONARY NODULE 12/09/2018 THIAGO LONGO E GEAR HOBBER SET UP OPERATOR Ot G47.33 OBSTRUCTIVE SLEEP APNEA (ADULT) (PEDIATR 12/09/2018 SANTI LONGOINE E GEAR HOBBER SET UP OPERATOR Ot J44.9 CHRONIC OBSTRUCTIVE PULMONARY DISEASE, U 12/09/2018 SANTI LONGOINE E GEAR HOBBER SET UP OPERATOR Ot J45.909 UNSPECIFIED ASTHMA, UNCOMPLICATED 12/09/2018 SANTI LONGOINE E GEAR HOBBER SET UP OPERATOR Ot R06.00 DYSPNEA, UNSPECIFIED 12/09/2018 SANTI LONGOINE E GEAR HOBBER SET UP OPERATOR Ot R91.1 SOLITARY PULMONARY NODULE 12/10/2018 DONTA, THIAGO E GEAR HOBBER SET UP OPERATOR Ot G47.33 OBSTRUCTIVE SLEEP APNEA (ADULT) (PEDIATR 12/10/2018 DONTA, THIAGO E GEAR HOBBER SET UP OPERATOR Ot J44.9 CHRONIC OBSTRUCTIVE PULMONARY DISEASE, U 12/10/2018 DONTA, THIAGO E GEAR HOBBER SET UP OPERATOR Ot J45.909 UNSPECIFIED ASTHMA, UNCOMPLICATED 12/10/2018 DONTA, THIAGO E GEAR HOBBER SET UP OPERATOR Ot R06.00 DYSPNEA, UNSPECIFIED 12/10/2018 DONTA, THIAGO E GEAR HOBBER SET UP OPERATOR Ot R91.1 SOLITARY PULMONARY NODULE 12/15/2018 DONTA, THIAGO E GEAR HOBBER SET UP OPERATOR Ot G47.33 OBSTRUCTIVE SLEEP APNEA (ADULT) (PEDIATR 12/15/2018 DONTA, THIAGO E GEAR HOBBER SET UP OPERATOR Ot J44.9 CHRONIC OBSTRUCTIVE PULMONARY DISEASE, U 12/15/2018 DONTA, THIAGO E GEAR HOBBER SET UP OPERATOR Ot J45.909 UNSPECIFIED ASTHMA, UNCOMPLICATED 12/15/2018 DONTA, THIAGO E GEAR HOBBER SET UP OPERATOR Ot R06.00 DYSPNEA, UNSPECIFIED 12/15/2018 DONTA, THIAGO E GEAR HOBBER SET UP OPERATOR Ot R91.1 SOLITARY PULMONARY NODULE 12/17/2018 DONTA, THIAGO E GEAR HOBBER SET UP OPERATOR Ot G47.33 OBSTRUCTIVE SLEEP APNEA (ADULT) (PEDIATR 12/17/2018 DONTA, THIAGO E GEAR HOBBER SET UP OPERATOR Ot J44.9 CHRONIC OBSTRUCTIVE PULMONARY DISEASE, U 12/17/2018 DONTA, THIAGO E GEAR HOBBER SET UP OPERATOR Ot J45.909 UNSPECIFIED ASTHMA, UNCOMPLICATED 12/17/2018 DONTA, THIAGO E GEAR HOBBER SET UP OPERATOR Ot R06.00 DYSPNEA, UNSPECIFIED 12/17/2018 DONTA, THIAGO E GEAR HOBBER SET UP OPERATOR Ot R91.1 SOLITARY PULMONARY NODULE 12/22/2018 SANTI LONGOINE E GEAR HOBBER SET UP OPERATOR Ot G47.33 OBSTRUCTIVE SLEEP APNEA (ADULT) (PEDIATR 12/22/2018 DONTA, THIAGO E GEAR HOBBER SET UP OPERATOR Ot J44.9 CHRONIC OBSTRUCTIVE PULMONARY DISEASE, U 12/22/2018 DONTA, THIAGO E GEAR HOBBER SET UP OPERATOR Ot J45.909 UNSPECIFIED ASTHMA, UNCOMPLICATED 12/22/2018 DONTA, THIAGO E GEAR HOBBER SET UP OPERATOR Ot R06.00 DYSPNEA, UNSPECIFIED 12/22/2018 DONTA, THIAGO E GEAR HOBBER SET UP OPERATOR Ot R91.1 SOLITARY PULMONARY NODULE 12/24/2018 SANTI LONGOINE E GEAR HOBBER SET UP OPERATOR Ot G47.33 OBSTRUCTIVE SLEEP APNEA (ADULT) (PEDIATR 12/24/2018 DONTA, THIAGO E GEAR HOBBER SET UP OPERATOR Ot J44.9 CHRONIC OBSTRUCTIVE PULMONARY DISEASE, U 12/24/2018 THIAGO LONGO GEAR HOBBER SET UP OPERATOR Ot J45.909 UNSPECIFIED ASTHMA, UNCOMPLICATED 12/24/2018 DONTA, THIAGO E GEAR HOBBER SET UP OPERATOR Ot R06.00 DYSPNEA, UNSPECIFIED 12/24/2018 SANTI LONGOINE E GEAR HOBBER SET UP OPERATOR Ot R91.1 SOLITARY PULMONARY NODULE 12/29/2018 SANTI LONGOINE E GEAR HOBBER SET UP OPERATOR Ot G47.33 OBSTRUCTIVE SLEEP APNEA (ADULT) (PEDIATR 12/29/2018 SANTI LONGOINE E GEAR HOBBER SET UP OPERATOR Ot J44.9 CHRONIC OBSTRUCTIVE PULMONARY DISEASE, U 12/29/2018 SANTI LONGOINE E GEAR HOBBER SET UP OPERATOR Ot J45.909 UNSPECIFIED ASTHMA, UNCOMPLICATED 12/29/2018 THIAGO LONGO E GEAR HOBBER SET UP OPERATOR Ot R06.00 DYSPNEA, UNSPECIFIED 12/29/2018 THIAGO LONGO GEAR HOBBER SET UP OPERATOR Ot R91.1 SOLITARY PULMONARY NODULE 12/29/2018 THIAGO LONGO GEAR HOBBER SET UP OPERATOR Ot G47.33 OBSTRUCTIVE SLEEP APNEA (ADULT) (PEDIATR 12/29/2018 THIAGO LONGO E GEAR HOBBER SET UP OPERATOR Ot J44.9 CHRONIC OBSTRUCTIVE PULMONARY DISEASE, U 12/29/2018 SANTI LONGOINE E GEAR HOBBER SET UP OPERATOR Ot J45.909 UNSPECIFIED ASTHMA, UNCOMPLICATED 12/29/2018 THIAGO LONGO E GEAR HOBBER SET UP OPERATOR Ot R06.00 DYSPNEA, UNSPECIFIED 12/29/2018 SANTI LONGOINE E GEAR HOBBER SET UP OPERATOR Ot R91.1 SOLITARY PULMONARY NODULE 12/30/2018 Levin, Gem-Eric W 724.2 LUMBAGO 12/30/2018 Levin, Gem-Eric W M54.5 LOW BACK PAIN 12/30/2018 Levin, Gem-Eric W 724.2 LUMBAGO 12/30/2018 Levin, Gem-Eric W 724.8 OTHER SYMPTOMS REFERABLE TO BACK 12/30/2018 Levin, Gem-Eric W M54.5 LOW BACK PAIN 12/30/2018 Levin, Gem-Eric W M62.830 MUSCLE SPASM OF BACK 12/30/2018 Levin, Gem-Eric W 724.2 LUMBAGO 12/30/2018 Levin, Gem-Eric W 724.8 OTHER SYMPTOMS REFERABLE TO BACK 12/30/2018 Levin, Gem-Eric W M54.5 LOW BACK PAIN 12/30/2018 Levin, Gem-Eric W M62.830 MUSCLE SPASM OF BACK 12/30/2018 Levin, Gem-Eric W 110.5 DERMATOPHYTOSIS OF THE BODY 12/30/2018 Levin, Gem-Eric W 724.2 LUMBAGO 12/30/2018 Levin, Gem-Eric W 724.8 OTHER SYMPTOMS REFERABLE TO BACK 12/30/2018 Levin, Gem-Eric W B35.4 TINEA CORPORIS 12/30/2018 Levin, Gem-Eric W M54.5 LOW BACK PAIN 12/30/2018 Levin, Gem-Eric W M62.830 MUSCLE SPASM OF BACK 12/30/2018 Levin, Gem-Eric W 110.5 DERMATOPHYTOSIS OF THE BODY 12/30/2018 Levin, Gem-Eric W 724.2 LUMBAGO 12/30/2018 Levin, Gem-Eric W 724.8 OTHER SYMPTOMS REFERABLE TO BACK 12/30/2018 Levin, Gem-Eric W B35.4 TINEA CORPORIS 12/30/2018 Levin, Gem-Eric W M54.5 LOW BACK PAIN 12/30/2018 Levin, Gem-Eric W M62.830 MUSCLE SPASM OF BACK 12/30/2018 Levin, Gem-Eric W 110.5 DERMATOPHYTOSIS OF THE BODY 12/30/2018 Levin, Gem-Eric W 724.2 LUMBAGO 12/30/2018 Levin, Gem-Eric W 724.8 OTHER SYMPTOMS REFERABLE TO BACK 12/30/2018 Levin, Gem-Eric W B35.4 TINEA CORPORIS 12/30/2018 Levin, Gem-Eric W M54.5 LOW BACK PAIN 12/30/2018 Levin, Gem-Eric W M62.830 MUSCLE SPASM OF BACK 12/31/2018 THIAGO LONGO APRN Ot G47.33 OBSTRUCTIVE SLEEP APNEA (ADULT) (PEDIATR 12/31/2018 THIAGO LONGO APRN Ot J44.9 CHRONIC OBSTRUCTIVE PULMONARY DISEASE, U 12/31/2018 THIAGO LONGO APRN Ot J45.909 UNSPECIFIED ASTHMA, UNCOMPLICATED 12/31/2018 THIAGO LONGO APRN Ot R06.00 DYSPNEA, UNSPECIFIED 12/31/2018 DONTA THIAGO E GEAR HOBBER SET UP OPERATOR Ot R91.1 SOLITARY PULMONARY NODULE 12/31/2018 DONTA, THIAGO E GEAR HOBBER SET UP OPERATOR Ot G47.33 OBSTRUCTIVE SLEEP APNEA (ADULT) (PEDIATR 12/31/2018 DONTA, THIAGO E GEAR HOBBER SET UP OPERATOR Ot J44.9 CHRONIC OBSTRUCTIVE PULMONARY DISEASE, U 12/31/2018 DONTA, THIAGO E GEAR HOBBER SET UP OPERATOR Ot J45.909 UNSPECIFIED ASTHMA, UNCOMPLICATED 12/31/2018 DONTA, THIAGO E GEAR HOBBER SET UP OPERATOR Ot R06.00 DYSPNEA, UNSPECIFIED 12/31/2018 DONTA, THIAGO E GEAR HOBBER SET UP OPERATOR Ot R91.1 SOLITARY PULMONARY NODULE 01/05/2019 DONTA, THIAGO E GEAR HOBBER SET UP OPERATOR Ot G47.33 OBSTRUCTIVE SLEEP APNEA (ADULT) (PEDIATR 01/05/2019 DONTA, THIAGO E GEAR HOBBER SET UP OPERATOR Ot J44.9 CHRONIC OBSTRUCTIVE PULMONARY DISEASE, U 01/05/2019 DONTA, THIAGO E GEAR HOBBER SET UP OPERATOR Ot J45.909 UNSPECIFIED ASTHMA, UNCOMPLICATED 01/05/2019 DONTA, THIAGO E GEAR HOBBER SET UP OPERATOR Ot R06.00 DYSPNEA, UNSPECIFIED 01/05/2019 DONTA, THIAGO E GEAR HOBBER SET UP OPERATOR Ot R91.1 SOLITARY PULMONARY NODULE 01/24/2019 SANTI LONGOINE E GEAR HOBBER SET UP OPERATOR Ot G47.33 OBSTRUCTIVE SLEEP APNEA (ADULT) (PEDIATR 01/24/2019 DONTA, THIAGO E GEAR HOBBER SET UP OPERATOR Ot J44.9 CHRONIC OBSTRUCTIVE PULMONARY DISEASE, U 01/24/2019 DONTA, THIAGO E GEAR HOBBER SET UP OPERATOR Ot J45.909 UNSPECIFIED ASTHMA, UNCOMPLICATED 01/24/2019 DONTA, THIAGO E GEAR HOBBER SET UP OPERATOR Ot R06.00 DYSPNEA, UNSPECIFIED 01/24/2019 DONTA, THIAGO E GEAR HOBBER SET UP OPERATOR Ot R91.1 SOLITARY PULMONARY NODULE 01/25/2019 SANTI LONGOINE E GEAR HOBBER SET UP OPERATOR Ot G47.33 OBSTRUCTIVE SLEEP APNEA (ADULT) (PEDIATR 01/25/2019 DONTA, THIAGO E GEAR HOBBER SET UP OPERATOR Ot J44.9 CHRONIC OBSTRUCTIVE PULMONARY DISEASE, U 01/25/2019 DONTA, THIAGO E GEAR HOBBER SET UP OPERATOR Ot J45.909 UNSPECIFIED ASTHMA, UNCOMPLICATED 01/25/2019 DONTA, THIAGO E GEAR HOBBER SET UP OPERATOR Ot R06.00 DYSPNEA, UNSPECIFIED 01/25/2019 DONTA, THIAGO E GEAR HOBBER SET UP OPERATOR Ot R91.1 SOLITARY PULMONARY NODULE 01/30/2019 SANTI LONGOINE E GEAR HOBBER SET UP OPERATOR Ot G47.33 OBSTRUCTIVE SLEEP APNEA (ADULT) (PEDIATR 01/30/2019 THIAGO LONGO GEAR HOBBER SET UP OPERATOR Ot J44.9 CHRONIC OBSTRUCTIVE PULMONARY DISEASE, U 01/30/2019 THIAGO LONGO GEAR HOBBER SET UP OPERATOR Ot J45.909 UNSPECIFIED ASTHMA, UNCOMPLICATED 01/30/2019 THIAGO LONGO GEAR HOBBER SET UP OPERATOR Ot R06.00 DYSPNEA, UNSPECIFIED 01/30/2019 THIAGO LONGO GEAR HOBBER SET UP OPERATOR Ot R91.1 SOLITARY PULMONARY NODULE 02/04/2019 THIAGO LONGO GEAR HOBBER SET UP OPERATOR Ot D86.0 SARCOIDOSIS OF LUNG 02/04/2019 THIAGO LONGO GEAR HOBBER SET UP OPERATOR Ot G47.33 OBSTRUCTIVE SLEEP APNEA (ADULT) (PEDIATR 02/04/2019 THIAGO LONGO GEAR HOBBER SET UP OPERATOR Ot G47.50 PARASOMNIA, UNSPECIFIED 02/04/2019 THIAGO LONGO GEAR HOBBER SET UP OPERATOR Ot J45.909 UNSPECIFIED ASTHMA, UNCOMPLICATED 02/04/2019 THIAGO LONGO GEAR HOBBER SET UP OPERATOR Ot M79.89 OTHER SPECIFIED SOFT TISSUE DISORDERS 02/04/2019 THIAGO LONGO GEAR HOBBER SET UP OPERATOR Ot R09.02 HYPOXEMIA 02/04/2019 THIAGO LONGO GEAR HOBBER SET UP OPERATOR Ot R91.8 OTHER NONSPECIFIC ABNORMAL FINDING OF 02/07/2019 THIAGO LONGO GEAR HOBBER SET UP OPERATOR Ot D86.0 SARCOIDOSIS OF LUNG 02/07/2019 THIAGO LONGO GEAR HOBBER SET UP OPERATOR Ot G47.33 OBSTRUCTIVE SLEEP APNEA (ADULT) (PEDIATR 02/07/2019 THIAGO LONGO GEAR HOBBER SET UP OPERATOR Ot G47.50 PARASOMNIA, UNSPECIFIED 02/07/2019 THIAGO LONGO GEAR HOBBER SET UP OPERATOR Ot J45.909 UNSPECIFIED ASTHMA, UNCOMPLICATED 02/07/2019 THIAGO LONGO GEAR HOBBER SET UP OPERATOR Ot M79.89 OTHER SPECIFIED SOFT TISSUE DISORDERS 02/07/2019 THIAGO LONGO GEAR HOBBER SET UP OPERATOR Ot R09.02 HYPOXEMIA 02/07/2019 THIAGO LONGO GEAR HOBBER SET UP OPERATOR Ot R91.8 OTHER NONSPECIFIC ABNORMAL FINDING OF 02/10/2019 THIAGO LONGO GEAR HOBBER SET UP OPERATOR Ot D86.0 SARCOIDOSIS OF LUNG 02/10/2019 THIAGO LONGO GEAR HOBBER SET UP OPERATOR Ot G47.33 OBSTRUCTIVE SLEEP APNEA (ADULT) (PEDIATR 02/10/2019 THIAGO LONGO GEAR HOBBER SET UP OPERATOR Ot G47.36 SLEEP RELATED HYPOVENTILATION IN CONDITI 02/10/2019 THIAGO LONGO GEAR HOBBER SET UP OPERATOR Ot G47.50 PARASOMNIA, UNSPECIFIED 02/10/2019 THIAGO LONGO GEAR HOBBER SET UP OPERATOR Ot I51.7 CARDIOMEGALY 02/10/2019 THIAGO LONGO GEAR HOBBER SET UP OPERATOR Ot J45.909 UNSPECIFIED ASTHMA, UNCOMPLICATED 02/10/2019 THIAGO LONGO GEAR HOBBER SET UP OPERATOR Ot J98.4 OTHER DISORDERS OF LUNG 02/10/2019 THIAGO LONGO GEAR HOBBER SET UP OPERATOR Ot Z95.810 PRESENCE OF AUTOMATIC (IMPLANTABLE) CARD 02/18/2019 THIAGO LONGO GEAR HOBBER SET UP OPERATOR Ot D86.0 SARCOIDOSIS OF LUNG 02/18/2019 THIAGO LONGO GEAR HOBBER SET UP OPERATOR Ot G47.33 OBSTRUCTIVE SLEEP APNEA (ADULT) (PEDIATR 02/18/2019 THIAGO LONGO GEAR HOBBER SET UP OPERATOR Ot G47.36 SLEEP RELATED HYPOVENTILATION IN CONDITI 02/18/2019 THIAGO LONGO GEAR HOBBER SET UP OPERATOR Ot G47.50 PARASOMNIA, UNSPECIFIED 02/18/2019 THIAGO LONGO GEAR HOBBER SET UP OPERATOR Ot I51.7 CARDIOMEGALY 02/18/2019 THIAGO LONGO GEAR HOBBER SET UP OPERATOR Ot J45.909 UNSPECIFIED ASTHMA, UNCOMPLICATED 02/18/2019 THIAGO LONGO GEAR HOBBER SET UP OPERATOR Ot J98.4 OTHER DISORDERS OF LUNG 02/18/2019 THIAGO LONGO GEAR HOBBER SET UP OPERATOR Ot Z95.810 PRESENCE OF AUTOMATIC (IMPLANTABLE) CARD 02/18/2019 THIAGO LONGO GEAR HOBBER SET UP OPERATOR Ot I51.7 CARDIOMEGALY 02/18/2019 THIAGO LONGO GEAR HOBBER SET UP OPERATOR Ot J45.909 UNSPECIFIED ASTHMA, UNCOMPLICATED 02/18/2019 THIAGO LONGO GEAR HOBBER SET UP OPERATOR Ot J98.11 ATELECTASIS 02/18/2019 THIAGO LONGO GEAR HOBBER SET UP OPERATOR Ot K80.20 CALCULUS OF GALLBLADDER W/O CHOLECYSTITI 02/18/2019 THIAGO LONGO GEAR HOBBER SET UP OPERATOR Ot R06.00 DYSPNEA, UNSPECIFIED 02/18/2019 THIAGO LONGO GEAR HOBBER SET UP OPERATOR Ot R59.0 LOCALIZED ENLARGED LYMPH NODES 02/18/2019 VIRGIL CORNEJO PIER WORKER Ot I27.0 PRIMARY PULMONARY HYPERTENSION 02/18/2019 VIRGIL CORNEJO PIER WORKER Ot I42.9 CARDIOMYOPATHY, UNSPECIFIED 02/18/2019 BAIMA, VIRGIL L PIER WORKER Ot I51.9 HEART DISEASE, UNSPECIFIED 02/18/2019 VIRGIL CORNEJO PIER WORKER Ot R06.09 OTHER FORMS OF DYSPNEA 02/18/2019 PHILLIP MADRIGAL DO Ot E66. 9 OBESITY, UNSPECIFIED 02/18/2019 PHILLIP MADRIGAL DO Ot I50. 43 ACUTE ON CHRONIC COMBINED SYSTOLIC AND D 02/18/2019 PHILLIP MADRIGAL DO Ot N17. 9 ACUTE KIDNEY FAILURE, UNSPECIFIED 02/18/2019 PHILLIP MADRIGAL DO Ot R91. 8 OTHER NONSPECIFIC ABNORMAL FINDING OF 02/18/2019 PHILLIP MADRIGAL DO Ot Z87. 09 PERSONAL HISTORY OF OTHER DISEASES OF TH 02/18/2019 SARAH YATESC, ALI FACP CCDS Ot E66.8 OTHER OBESITY 02/18/2019 SARAH SUAREZ FACC, ALI FACP CCDS Ot I27.0 PRIMARY PULMONARY HYPERTENSION 02/18/2019 SARAH YATESC, ALI FACP CCDS Ot I42.0 DILATED CARDIOMYOPATHY 02/18/2019 SARAH SUAREZ FACC, ALI FACP CCDS Ot I48.92 UNSPECIFIED ATRIAL FLUTTER 02/18/2019 SARAH SUAREZ FACC, ALI FACP CCDS Ot 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 02/18/2019 SARAH SUAREZ FACC, ALI FACP CCDS Ot N18.3 CHRONIC KIDNEY DISEASE, STAGE 3 (MODERAT 02/18/2019 SARAH SUAREZ FACC, ALI FACP CCDS Ot R91.1 SOLITARY PULMONARY NODULE 02/18/2019 MARY DE LOS SANTOS MD Ot D64 .9 ANEMIA, UNSPECIFIED 02/18/2019 MARY DE LOS SANTOS MD Ot I27.20 PULMONARY HYPERTENSION, UNSPECIFIED 02/18/2019 MARY DE LOS SANTOS MD Ot I50 .9 HEART FAILURE, UNSPECIFIED 02/18/2019 MARY DE LOS SANTOS MD Ot N18 .4 CHRONIC KIDNEY DISEASE, STAGE 4 (SEVERE) 02/18/2019 THIAGO LONGO APRN Ot J45.901 UNSPECIFIED ASTHMA WITH (ACUTE) EXACERBA 02/18/2019 THIAGO LONGO APRN Ot J45.901 UNSPECIFIED ASTHMA WITH (ACUTE) EXACERBA 02/18/2019 THIAGO LONGO APRN Ot M79.89 OTHER SPECIFIED SOFT TISSUE DISORDERS 02/18/2019 THIAGO LONGO GEAR HOBBER SET UP OPERATOR Ot R91.8 OTHER NONSPECIFIC ABNORMAL FINDING OF 02/18/2019 THIAGO LONGO GEAR HOBBER SET UP OPERATOR Ot D86.0 SARCOIDOSIS OF LUNG 02/18/2019 THIAGO LONGO GEAR HOBBER SET UP OPERATOR Ot I50.43 ACUTE ON CHRONIC COMBINED SYSTOLIC AND D 02/18/2019 THIAGO LONGO GEAR HOBBER SET UP OPERATOR Ot J45.909 UNSPECIFIED ASTHMA, UNCOMPLICATED 02/18/2019 THIAGO LONGO GEAR HOBBER SET UP OPERATOR Ot R91.1 SOLITARY PULMONARY NODULE 02/18/2019 BAIVIRGIL HELMS PIER WORKER Ot I50.9 HEART FAILURE, UNSPECIFIED 02/18/2019 BAIVIRGIL HELMS PIER WORKER Ot T50.2X5A ADVRS EFF OF CRBN-ANHYDR INHIBTR, BENZO 02/18/2019 THIAGO LONGO GEAR HOBBER SET UP OPERATOR Ot D86.0 SARCOIDOSIS OF LUNG 02/18/2019 THIAGO LONGO GEAR HOBBER SET UP OPERATOR Ot G47.33 OBSTRUCTIVE SLEEP APNEA (ADULT) (PEDIATR 02/18/2019 THIAGO LONGO GEAR HOBBER SET UP OPERATOR Ot G47.50 PARASOMNIA, UNSPECIFIED 02/18/2019 THIAGO LONGO GEAR HOBBER SET UP OPERATOR Ot J45.909 UNSPECIFIED ASTHMA, UNCOMPLICATED 02/18/2019 THIAGO LONGO GEAR HOBBER SET UP OPERATOR Ot M79.89 OTHER SPECIFIED SOFT TISSUE DISORDERS 02/18/2019 THIAGO LONGO GEAR HOBBER SET UP OPERATOR Ot R09.02 HYPOXEMIA 02/18/2019 THIAGO LONGO GEAR HOBBER SET UP OPERATOR Ot R91.8 OTHER NONSPECIFIC ABNORMAL FINDING OF 02/18/2019 THIAGO LONGO GEAR HOBBER SET UP OPERATOR Ot G47.33 OBSTRUCTIVE SLEEP APNEA (ADULT) (PEDIATR 02/18/2019 THIAGO LONGO GEAR HOBBER SET UP OPERATOR Ot J44.9 CHRONIC OBSTRUCTIVE PULMONARY DISEASE, U 02/18/2019 THIAGO LONGO GEAR HOBBER SET UP OPERATOR Ot J45.909 UNSPECIFIED ASTHMA, UNCOMPLICATED 02/18/2019 THIAGO LONGO GEAR HOBBER SET UP OPERATOR Ot R06.00 DYSPNEA, UNSPECIFIED 02/18/2019 THIAGO LONGO GEAR HOBBER SET UP OPERATOR Ot R91.1 SOLITARY PULMONARY NODULE 02/18/2019 THIAGO LONGO GEAR HOBBER SET UP OPERATOR Ot D86.0 SARCOIDOSIS OF LUNG 02/18/2019 THIAGO LONGO GEAR HOBBER SET UP OPERATOR Ot G47.33 OBSTRUCTIVE SLEEP APNEA (ADULT) (PEDIATR 02/18/2019 THIAGO LONGO GEAR HOBBER SET UP OPERATOR Ot G47.36 SLEEP RELATED HYPOVENTILATION IN CONDITI 02/18/2019 THIAGO LONGO GEAR HOBBER SET UP OPERATOR Ot G47.50 PARASOMNIA, UNSPECIFIED 02/18/2019 SANTI LONGOINE Wen GEAR HOBBER SET UP OPERATOR Ot I51.7 CARDIOMEGALY 02/18/2019 THIAGO LONGO GEAR HOBBER SET UP OPERATOR Ot J45.909 UNSPECIFIED ASTHMA, UNCOMPLICATED 02/18/2019 SANTI LONGOINE Wen GEAR HOBBER SET UP OPERATOR Ot J98.4 OTHER DISORDERS OF LUNG 02/18/2019 SANTI LONGOINE Wen GEAR HOBBER SET UP OPERATOR Ot Z95.810 PRESENCE OF AUTOMATIC (IMPLANTABLE) CARD 03/03/2019 SANTI LONGOINE Wen GEAR HOBBER SET UP OPERATOR Ot D86.0 SARCOIDOSIS OF LUNG 03/03/2019 THIAGO LONGO GEAR HOBBER SET UP OPERATOR Ot G47.33 OBSTRUCTIVE SLEEP APNEA (ADULT) (PEDIATR 03/03/2019 THIAGO LONGO GEAR HOBBER SET UP OPERATOR Ot G47.50 PARASOMNIA, UNSPECIFIED 03/03/2019 THIAGO LONGO GEAR HOBBER SET UP OPERATOR Ot J45.909 UNSPECIFIED ASTHMA, UNCOMPLICATED 03/03/2019 SANTI LONGOINE Wen GEAR HOBBER SET UP OPERATOR Ot M79.89 OTHER SPECIFIED SOFT TISSUE DISORDERS 03/03/2019 ASNTI LONGOINE Wen GEAR HOBBER SET UP OPERATOR Ot R09.02 HYPOXEMIA 03/03/2019 SANTI LONGOINE Wen GEAR HOBBER SET UP OPERATOR Ot R91.8 OTHER NONSPECIFIC ABNORMAL FINDING OF 03/10/2019 THIAGO LONGO GEAR HOBBER SET UP OPERATOR Ot D86.0 SARCOIDOSIS OF LUNG 03/10/2019 THIAGO LONGO GEAR HOBBER SET UP OPERATOR Ot G47.33 OBSTRUCTIVE SLEEP APNEA (ADULT) (PEDIATR 03/10/2019 THIAGO LONGO GEAR HOBBER SET UP OPERATOR Ot G47.36 SLEEP RELATED HYPOVENTILATION IN CONDITI 03/10/2019 THIAGO LONGO GEAR HOBBER SET UP OPERATOR Ot G47.50 PARASOMNIA, UNSPECIFIED 03/10/2019 SANTI LONGOINE Wen GEAR HOBBER SET UP OPERATOR Ot I51.7 CARDIOMEGALY 03/10/2019 THIAGO LONGO GEAR HOBBER SET UP OPERATOR Ot J45.909 UNSPECIFIED ASTHMA, UNCOMPLICATED 03/10/2019 SANTI LONGOINE Wen GEAR HOBBER SET UP OPERATOR Ot J98.4 OTHER DISORDERS OF LUNG 03/10/2019 THIAGO LONGO GEAR HOBBER SET UP OPERATOR Ot Z95.810 PRESENCE OF AUTOMATIC (IMPLANTABLE) CARD 03/15/2019 THIAGO LONGO GEAR HOBBER SET UP OPERATOR Ot D86.0 SARCOIDOSIS OF LUNG 03/15/2019 THIAGO LONGO APRN Ot G47.33 OBSTRUCTIVE SLEEP APNEA (ADULT) (PEDIATR 03/15/2019 THIAGO LONGO APRN Ot G47.50 PARASOMNIA, UNSPECIFIED 03/15/2019 THIAGO LONGO APRN Ot J45.909 UNSPECIFIED ASTHMA, UNCOMPLICATED 03/15/2019 THIAGO LONGO APRN Ot M79.89 OTHER SPECIFIED SOFT TISSUE DISORDERS 03/15/2019 THIAGO LONGO APRN Ot R09.02 HYPOXEMIA 03/15/2019 THIAGO LONGO APRN Ot R91.8 OTHER NONSPECIFIC ABNORMAL FINDING OF 03/17/2019 STEFFI TONY MD Ot E66. 2 MORBID (SEVERE) OBESITY WITH ALVEOLAR HY 03/17/2019 STEFFI TONY MD Ot I21. 4 NON-ST ELEVATION (NSTEMI) MYOCARDIAL INF 03/17/2019 STEFFI TONY MD Ot I42. 8 OTHER CARDIOMYOPATHIES 03/17/2019 STEFFI TONY MD Ot I44. 7 LEFT BUNDLE-BRANCH BLOCK, UNSPECIFIED 03/17/2019 STEFFI TONY MD Ot I48. 0 PAROXYSMAL ATRIAL FIBRILLATION 03/17/2019 STEFFI OTNY MD Ot I48. 91 UNSPECIFIED ATRIAL FIBRILLATION 03/17/2019 STEFFI TONY MD Ot I50. 9 HEART FAILURE, UNSPECIFIED 03/17/2019 STEFFI TONY MD Ot J44. 9 CHRONIC OBSTRUCTIVE PULMONARY DISEASE, U 03/17/2019 STEFFI TONY MD Ot J96. 01 ACUTE RESPIRATORY FAILURE WITH HYPOXIA 03/17/2019 STEFFI TONY MD Ot M25.473 EFFUSION, UNSPECIFIED ANKLE 03/17/2019 STEFFI TONY MD Ot N18. 4 CHRONIC KIDNEY DISEASE, STAGE 4 (SEVERE) 03/17/2019 STEFFI TONY MD Ot Z68. 41 BODY MASS INDEX (BMI) 40.0-44.9, ADULT 03/17/2019 STEFFI TONY MD Ot Z79. 01 FDC (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 OF ANTICOAGULANT 03/17/2019 STEFFI TONY MD Ot Z79.899 OTHER PAVER INSTALLER (CURRENT) DRUG THERAPY 03/17/2019 STEFFI TONY MD Ot Z90.710 ACQUIRED ABSENCE OF BOTH CERVIX AND UTER 03/17/2019 STEFFI TONY MD Ot Z90. 89 ACQUIRED ABSENCE OF OTHER ORGANS 03/17/2019 STEFFI TONY MD, Ot Z95.810 PRESENCE OF AUTOMATIC (IMPLANTABLE) CARD 03/31/2019 STEFFI TONY MD, Ot D86. 9 SARCOIDOSIS, UNSPECIFIED 03/31/2019 STEFFI TONY MD, Ot G47. 33 OBSTRUCTIVE SLEEP APNEA (ADULT) (PEDIATR 03/31/2019 STEFFI TONY MD, Ot I13. 0 HYP HRT CHR [facility] DIS W HRT FAIL AND ST 03/31/2019 STEFFI TONY MD, Ot I27. 20 PULMONARY HYPERTENSION, UNSPECIFIED 03/31/2019 STEFFI TOYN MD, Ot I42. 9 CARDIOMYOPATHY, UNSPECIFIED 03/31/2019 STEFFI TONY MD, Ot I44. 7 LEFT BUNDLE-BRANCH BLOCK, UNSPECIFIED 03/31/2019 STEFFI TONY MD, Ot I48. 0 PAROXYSMAL ATRIAL FIBRILLATION 03/31/2019 STEFFI TONY MD, Ot I48. 92 UNSPECIFIED ATRIAL FLUTTER 03/31/2019 STEFFI TONY MD, Ot I49. 3 VENTRICULAR PREMATURE DEPOLARIZATION 03/31/2019 STEFFI TONY MD, Ot I50. 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 1 LOBAR PNEUMONIA, UNSPECIFIED ORGANISM 03/31/2019 STEFFI TONY MD, Ot J44. 1 CHRONIC OBSTRUCTIVE PULMONARY DISEASE W 03/31/2019 STEFFI TONY MD Ot J96. 01 ACUTE RESPIRATORY FAILURE WITH HYPOXIA 03/31/2019 STEFFI TONY MD, Ot N18. 3 CHRONIC KIDNEY DISEASE, STAGE 3 (MODERAT 03/31/2019 STEFFI TONY MD, Ot Z90.710 ACQUIRED ABSENCE OF BOTH CERVIX AND UTER 03/31/2019 STEFFI TONY MD Ot Z95.810 PRESENCE OF AUTOMATIC (IMPLANTABLE) CARD 04/13/2019 STEFFI TONY MD Ot D64. 9 ANEMIA, UNSPECIFIED 04/13/2019 STEFFI TONY MD Ot E66. 2 MORBID (SEVERE) OBESITY WITH ALVEOLAR HY 04/13/2019 STEFFI TONY MD, Ot G47. 33 OBSTRUCTIVE SLEEP APNEA (ADULT) (PEDIATR 04/13/2019 STEFFI TONY MD, Ot I13. 0 HYP HRT CHR [place] DIS W HRT FAIL AND ST 04/13/2019 STEFFI TONY MD, Ot I27. 20 PULMONARY HYPERTENSION, UNSPECIFIED 04/13/2019 STEFFI TONY MD, Ot I42. 9 CARDIOMYOPATHY, UNSPECIFIED 04/13/2019 STEFFI TONY MD, Ot I44. 7 LEFT BUNDLE-BRANCH BLOCK, UNSPECIFIED 04/13/2019 STEFFI TONY MD, Ot I48. 91 UNSPECIFIED ATRIAL FIBRILLATION 04/13/2019 STEFFI TONY MD, Ot I48. 92 UNSPECIFIED ATRIAL FLUTTER 04/13/2019 STEFFI TONY MD, Ot I50. 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 1 CHRONIC OBSTRUCTIVE PULMONARY DISEASE W 04/13/2019 STEFFI TONY MD, Ot J96. 21 ACUTE AND CHRONIC RESPIRATORY FAILURE WI 04/13/2019 STEFFI TONY MD, Ot N18. 4 CHRONIC KIDNEY DISEASE, STAGE 4 (SEVERE) 04/13/2019 STEFFI TONY MD Ot R06. 02 SHORTNESS OF BREATH 04/13/2019 STEFFI TONY MD, Ot R07. 89 OTHER CHEST PAIN 04/13/2019 STEFFI TONY MD Ot R78. 89 FINDING OF OTH SUBSTANCES, NOT NORMALLY 04/13/2019 STEFFI TONY MD Ot Z68. 41 BODY MASS INDEX (BMI) 40.0-44.9, ADULT 04/13/2019 STEFFI TONY MD Ot Z79. 01 FDC (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 OF ANTICOAGULANT 04/13/2019 STEFFI TONY MD, Ot Z87. 01 PERSONAL HISTORY OF PNEUMONIA (RECURRENT 04/13/2019 STEFFI TONY MD Ot Z90.710 ACQUIRED ABSENCE OF BOTH CERVIX AND UTER 04/13/2019 STEFFI TONY MD Ot Z91. 19 PATIENT'S NONCOMPLIANCE W OTH MEDICAL TR 04/13/2019 STEFFI TONY MD, Ot Z95.810 PRESENCE OF AUTOMATIC (IMPLANTABLE) CARD 04/13/2019 STEFFI TONY MD, Ot Z99. 81 DEPENDENCE ON SUPPLEMENTAL OXYGEN 04/15/2019 STEFFI TONY MD, Ot D64. 9 ANEMIA, UNSPECIFIED 04/15/2019 STEFFI TONY MD, Ot E66. 2 MORBID (SEVERE) OBESITY WITH ALVEOLAR HY 04/15/2019 STEFFI TONY MD, Ot G47. 33 OBSTRUCTIVE SLEEP APNEA (ADULT) (PEDIATR 04/15/2019 STEFFI TONY MD, Ot I13. 0 HYP HRT CHR [facility] DIS W HRT FAIL AND ST 04/15/2019 STEFFI TONY MD, Ot I27. 20 PULMONARY HYPERTENSION, UNSPECIFIED 04/15/2019 STEFFI TNOY MD, Ot I42. 9 CARDIOMYOPATHY, UNSPECIFIED 04/15/2019 STEFFI TONY MD, Ot I44. 7 LEFT BUNDLE-BRANCH BLOCK, UNSPECIFIED 04/15/2019 STEFFI TONY MD, Ot I48. 91 UNSPECIFIED ATRIAL FIBRILLATION 04/15/2019 STEFFI TONY MD, Ot I48. 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 1 CHRONIC OBSTRUCTIVE PULMONARY DISEASE W 04/15/2019 STEFFI TONY MD, Ot J96. 21 ACUTE AND CHRONIC RESPIRATORY FAILURE WI 04/15/2019 STEFFI TONY MD, Ot N18. 4 CHRONIC KIDNEY DISEASE, STAGE 4 (SEVERE) 04/15/2019 STEFFI TONY MD, Ot R06. 02 SHORTNESS OF BREATH 04/15/2019 STEFFI TONY MD, Ot R07. 89 OTHER CHEST PAIN 04/15/2019 STEFFI TONY MD Ot R78. 89 FINDING OF OTH SUBSTANCES, NOT NORMALLY 04/15/2019 STEFFI TONY MD Ot Z68. 41 BODY MASS INDEX (BMI) 40.0-44.9, ADULT 04/15/2019 STEFFI TONY MD, Ot Z79. 01 [facility] (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 OF ANTICOAGULANT 04/15/2019 STEFFI TONY MD, Ot Z87. 01 PERSONAL HISTORY OF PNEUMONIA (RECURRENT 04/15/2019 STEFFI TONY MD, Ot Z90.710 ACQUIRED ABSENCE OF BOTH CERVIX AND UTER 04/15/2019 STEFFI TONY MD, Ot Z91. 19 PATIENT'S NONCOMPLIANCE W OT MEDICAL TR 04/15/2019 STEFFI TONY MD, Ot Z95.810 PRESENCE OF AUTOMATIC (IMPLANTABLE) CARD 04/15/2019 STEFFI TONY MD, Ot Z99. 81 DEPENDENCE ON SUPPLEMENTAL OXYGEN 04/15/2019 STEFFI TONY MD, Ot D64. 9 ANEMIA, UNSPECIFIED 04/15/2019 STEFFI TONY MD, Ot E66. 2 MORBID (SEVERE) OBESITY WITH ALVEOLAR HY 04/15/2019 STEFFI TONY MD, Ot G47. 33 OBSTRUCTIVE SLEEP APNEA (ADULT) (PEDIATR 04/15/2019 STEFFI TONY MD, Ot I13. 0 HYP HRT CHR [facility] DIS W HRT FAIL AND ST 04/15/2019 STEFFI TONY MD, Ot I27. 20 PULMONARY HYPERTENSION, UNSPECIFIED 04/15/2019 STEFFI TONY MD, Ot I42. 9 CARDIOMYOPATHY, UNSPECIFIED 04/15/2019 STEFFI TONY MD, Ot I44. 7 LEFT BUNDLE-BRANCH BLOCK, UNSPECIFIED 04/15/2019 STEFFI TONY MD, Ot I48. 91 UNSPECIFIED ATRIAL FIBRILLATION 04/15/2019 STEFFI TONY MD, Ot I48. 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 1 CHRONIC OBSTRUCTIVE PULMONARY DISEASE W 04/15/2019 STEFFI TONY MD, Ot J96. 21 ACUTE AND CHRONIC RESPIRATORY FAILURE WI 04/15/2019 STEFFI TONY MD, Ot N18. 4 CHRONIC KIDNEY DISEASE, STAGE 4 (SEVERE) 04/15/2019 STEFFI TONY MD Ot R06. 02 SHORTNESS OF BREATH 04/15/2019 STEFFI TONY MD Ot R07. 89 OTHER CHEST PAIN 04/15/2019 STEFFI TONY MD Ot R78. 89 FINDING OF OTH SUBSTANCES, NOT NORMALLY 04/15/2019 STEFFI TONY MD Ot Z68. 41 BODY MASS INDEX (BMI) 40.0-44.9, ADULT 04/15/2019 STEFFI TONY MD, Ot Z79. 01 [employer] INST[employer]ER (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 OF ANTICOAGULANT 04/15/2019 STEFFI TONY MD Ot Z87. 01 PERSONAL HISTORY OF PNEUMONIA (RECURRENT 04/15/2019 STEFFI TONY MD Ot Z90.710 ACQUIRED ABSENCE OF BOTH CERVIX AND UTER 04/15/2019 STEFFI TONY MD, Ot Z91. 19 PATIENT'S NONCOMPLIANCE W OT MEDICAL TR 04/15/2019 STEFFI TONY MD, Ot Z95.810 PRESENCE OF AUTOMATIC (IMPLANTABLE) CARD 04/15/2019 STEFFI TONY MD, Ot Z99. 81 DEPENDENCE ON SUPPLEMENTAL OXYGEN 04/15/2019 STEFFI TONY MD, Ot D64. 9 ANEMIA, UNSPECIFIED 04/15/2019 STEFFI TONY MD, Ot E66. 2 MORBID (SEVERE) OBESITY WITH ALVEOLAR HY 04/15/2019 STEFFI TONY MD, Ot G47. 33 OBSTRUCTIVE SLEEP APNEA (ADULT) (PEDIATR 04/15/2019 STEFFI TONY MD, Ot I13. 0 HYP HRT CHR [facility] DIS W HRT FAIL AND ST 04/15/2019 STEFFI TONY MD, Ot I27. 20 PULMONARY HYPERTENSION, UNSPECIFIED 04/15/2019 STEFFI TONY MD, Ot I42. 9 CARDIOMYOPATHY, UNSPECIFIED 04/15/2019 STEFFI TONY MD, Ot I44. 7 LEFT BUNDLE-BRANCH BLOCK, UNSPECIFIED 04/15/2019 STEFFI TONY MD, Ot I48. 91 UNSPECIFIED ATRIAL FIBRILLATION 04/15/2019 STEFFI TONY MD, Ot I48. 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 1 CHRONIC OBSTRUCTIVE PULMONARY DISEASE W 04/15/2019 STEFFI TONY MD, Ot J96. 21 ACUTE AND CHRONIC RESPIRATORY FAILURE WI 04/15/2019 STEFFI TONY MD, Ot N18. 4 CHRONIC KIDNEY DISEASE, STAGE 4 (SEVERE) 04/15/2019 STEFFI TONY MD, Ot R06. 02 SHORTNESS OF BREATH 04/15/2019 STEFFI TONY MD, Ot R07. 89 OTHER CHEST PAIN 04/15/2019 STEFFI TONY MD, Ot R78. 89 FINDING OF OT SUBSTANCES, NOT NORMALLY 04/15/2019 STEFFI TONY MD, Ot Z68. 41 BODY MASS INDEX (BMI) 40.0-44.9, ADULT 04/15/2019 STEFFI TONY MD, Ot Z79. 01 [facility] (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 OF ANTICOAGULANT 04/15/2019 STEFFI TONY MD, Ot Z87. 01 PERSONAL HISTORY OF PNEUMONIA (RECURRENT 04/15/2019 STEFFI TONY MD, Ot Z90.710 ACQUIRED ABSENCE OF BOTH CERVIX AND UTER 04/15/2019 STEFFI TONY MD, Ot Z91. 19 PATIENT'S NONCOMPLIANCE W OTH MEDICAL TR 04/15/2019 STEFFI TONY MD, Ot Z95.810 PRESENCE OF AUTOMATIC (IMPLANTABLE) CARD 04/15/2019 STEFFI TONY MD, Ot Z99. 81 DEPENDENCE ON SUPPLEMENTAL OXYGEN 04/15/2019 STEFFI TONY MD, Ot D64. 9 ANEMIA, UNSPECIFIED 04/15/2019 STEFFI TONY MD, Ot E66. 2 MORBID (SEVERE) OBESITY WITH ALVEOLAR HY 04/15/2019 STEFFI TONY MD, Ot G47. 33 OBSTRUCTIVE SLEEP APNEA (ADULT) (PEDIATR 04/15/2019 STEFFI TONY MD, Ot I13. 0 HYP HRT CHR [facility] DIS W HRT FAIL AND ST 04/15/2019 STEFFI TONY MD, Ot I27. 20 PULMONARY HYPERTENSION, UNSPECIFIED 04/15/2019 STEFFI TONY MD Ot I42. 9 CARDIOMYOPATHY, UNSPECIFIED 04/15/2019 STEFFI TONY MD, Ot I44. 7 LEFT BUNDLE-BRANCH BLOCK, UNSPECIFIED 04/15/2019 STEFFI TONY MD, Ot I48. 91 UNSPECIFIED ATRIAL FIBRILLATION 04/15/2019 STEFFI TONY MD, Ot I48. 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 1 CHRONIC OBSTRUCTIVE PULMONARY DISEASE W 04/15/2019 STEFFI TONY MD, Ot J96. 21 ACUTE AND CHRONIC RESPIRATORY FAILURE WI 04/15/2019 STEFFI TONY MD, Ot N18. 4 CHRONIC KIDNEY DISEASE, STAGE 4 (SEVERE) 04/15/2019 STEFFI TONY MD Ot R06. 02 SHORTNESS OF BREATH 04/15/2019 STEFFI TONY MD, Ot R07. 89 OTHER CHEST PAIN 04/15/2019 STEFFI TONY MD, Ot R78. 89 FINDING OF OTH SUBSTANCES, NOT NORMALLY 04/15/2019 STEFFI TONY MD, Ot Z68. 41 BODY MASS INDEX (BMI) 40.0-44.9, ADULT 04/15/2019 STEFFI TONY MD, Ot Z79. 01 [employer] INST[employer]ER (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 OF ANTICOAGULANT 04/15/2019 STEFFI TONY MD, Ot Z87. 01 PERSONAL HISTORY OF PNEUMONIA (RECURRENT 04/15/2019 STEFFI TONY MD, Ot Z90.710 ACQUIRED ABSENCE OF BOTH CERVIX AND UTER 04/15/2019 STEFFI TONY MD, Ot Z91. 19 PATIENT'S NONCOMPLIANCE W [facility] 04/15/2019 STEFFI TONY MD, Ot Z95.810 PRESENCE OF AUTOMATIC (IMPLANTABLE) CARD 04/15/2019 STEFFI TONY MD, Ot Z99. 81 DEPENDENCE ON SUPPLEMENTAL OXYGEN 04/15/2019 STEFFI TONY MD, Ot D64. 9 ANEMIA, UNSPECIFIED 04/15/2019 STEFFI TONY MD, Ot E66. 2 MORBID (SEVERE) OBESITY WITH ALVEOLAR HY 04/15/2019 STEFFI TONY MD, Ot G47. 33 OBSTRUCTIVE SLEEP APNEA (ADULT) (PEDIATR 04/15/2019 STEFFI TONY MD, Ot I13. 0 HYP HRT CHR [facility] DIS W HRT FAIL AND ST 04/15/2019 STEFFI TONY MD, Ot I27. 20 PULMONARY HYPERTENSION, UNSPECIFIED 04/15/2019 STEFIF TONY MD, Ot I42. 9 CARDIOMYOPATHY, UNSPECIFIED 04/15/2019 STEFFI TONY MD, Ot I44. 7 LEFT BUNDLE-BRANCH BLOCK, UNSPECIFIED 04/15/2019 STEFFI TONY MD Ot I48. 91 UNSPECIFIED ATRIAL FIBRILLATION 04/15/2019 STEFFI TONY MD, Ot I48. 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 1 CHRONIC OBSTRUCTIVE PULMONARY DISEASE W 04/15/2019 STEFFI TONY MD, Ot J96. 21 ACUTE AND CHRONIC RESPIRATORY FAILURE WI 04/15/2019 STEFFI TONY MD, Ot N18. 4 CHRONIC KIDNEY DISEASE, STAGE 4 (SEVERE) 04/15/2019 STEFFI TONY MD Ot R06. 02 SHORTNESS OF BREATH 04/15/2019 STEFFI TONY MD, Ot R07. 89 OTHER CHEST PAIN 04/15/2019 STEFFI TONY MD, Ot R78. 89 FINDING OF OT SUBSTANCES, NOT NORMALLY 04/15/2019 STEFFI TONY MD, Ot Z68. 41 BODY MASS INDEX (BMI) 40.0-44.9, ADULT 04/15/2019 STEFFI TONY MD, Ot Z79. 01 P[employer] INST[employer]ER (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 OF ANTICOAGULANT 04/15/2019 STEFFI TONY MD, Ot Z87. 01 PERSONAL HISTORY OF PNEUMONIA (RECURRENT 04/15/2019 STEFFI TONY MD, Ot Z90.710 ACQUIRED ABSENCE OF BOTH CERVIX AND UTER 04/15/2019 STEFFI TONY MD, Ot Z91. 19 PATIENT'S NONCOMPLIANCE W OT MEDICAL TR 04/15/2019 STEFFI TONY MD, Ot Z95.810 PRESENCE OF AUTOMATIC (IMPLANTABLE) CARD 04/15/2019 STEFFI TONY MD, Ot Z99. 81 DEPENDENCE ON SUPPLEMENTAL OXYGEN 05/10/2019 STEFFI TONY MD, Ot D64. 9 ANEMIA, UNSPECIFIED 05/10/2019 STEFFI TONY MD, Ot D86. 9 SARCOIDOSIS, UNSPECIFIED 05/10/2019 STEFFI TONY MD Ot E66. 01 MORBID (SEVERE) OBESITY DUE TO EXCESS CA 05/10/2019 STEFFI TONY MD Ot F17.200 NICOTINE DEPENDENCE, UNSPECIFIED, UNCOMP 05/10/2019 STEFFI TONY MD, Ot G47. 33 OBSTRUCTIVE SLEEP APNEA (ADULT) (PEDIATR 05/10/2019 STEFFI TONY MD, Ot I08. 1 RHEUMATIC DISORDERS OF BOTH MITRAL AND T 05/10/2019 STEFFI TONY MD Ot I13. 0 HYP HRT CHR [facility] DIS W HRT FAIL AND ST 05/10/2019 STEFFI TONY MD, Ot I21. A1 MYOCARDIAL INFARCTION TYPE 2 05/10/2019 STEFFI TONY MD, Ot I27. 20 PULMONARY HYPERTENSION, UNSPECIFIED 05/10/2019 STEFFI TONY MD, Ot I42. 9 CARDIOMYOPATHY, UNSPECIFIED 05/10/2019 STEFFI TONY MD, Ot I44. 7 LEFT BUNDLE-BRANCH BLOCK, UNSPECIFIED 05/10/2019 STEFFI TONY MD, Ot I48. 0 PAROXYSMAL ATRIAL FIBRILLATION 05/10/2019 STEFFI TONY MD, Ot I48. 92 UNSPECIFIED ATRIAL FLUTTER 05/10/2019 STEFFI TONY MD, Ot I50. 33 ACUTE ON CHRONIC DIASTOLIC (CONGESTIVE) 05/10/2019 STEFFI TONY MD, Ot J44. 1 CHRONIC OBSTRUCTIVE PULMONARY DISEASE W 05/10/2019 STEFFI TONY MD, Ot J96. 21 ACUTE AND CHRONIC RESPIRATORY FAILURE WI 05/10/2019 STEFFI TONY MD, Ot N17. 9 ACUTE KIDNEY FAILURE, UNSPECIFIED 05/10/2019 STEFFI TONY MD, Ot N18. 4 CHRONIC KIDNEY DISEASE, STAGE 4 (SEVERE) 05/10/2019 STEFFI TONY MD, Ot Z68. 41 BODY MASS INDEX (BMI) 40.0-44.9, ADULT 05/10/2019 STEFFI TONY MD, Ot Z79. 01 [facility]DC (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 OF ANTICOAGULANT 05/10/2019 STEFFI TONY MD Ot Z90. 49 ACQUIRED ABSENCE OF OTHER SPECIFIED PART 05/10/2019 STEFFI TONY MD Ot Z90.710 ACQUIRED ABSENCE OF BOTH CERVIX AND UTER 05/10/2019 STEFFI TONY MD Ot Z95.810 PRESENCE OF AUTOMATIC (IMPLANTABLE) CARD 05/10/2019 STEFFI TONY MD Ot Z99. 81 DEPENDENCE ON SUPPLEMENTAL OXYGEN 05/10/2019 STEFFI TONY MD Ot D64. 9 ANEMIA, UNSPECIFIED 05/10/2019 STEFFI TONY MD, Ot D86. 9 SARCOIDOSIS, UNSPECIFIED 05/10/2019 STEFFI TONY MD Ot E66. 01 MORBID (SEVERE) OBESITY DUE TO EXCESS CA 05/10/2019 STEFFI TONY MD Ot F17.200 NICOTINE DEPENDENCE, UNSPECIFIED, UNCOMP 05/10/2019 STEFFI TONY MD, Ot G47. 33 OBSTRUCTIVE SLEEP APNEA (ADULT) (PEDIATR 05/10/2019 STEFFI OTNY MD Ot I08. 1 RHEUMATIC DISORDERS OF BOTH MITRAL AND T 05/10/2019 STEFFI TONY MD Ot I13. 0 HYP HRT CHR [facility] DIS W HRT FAIL AND ST 05/10/2019 STEFFI TONY MD, Ot I21. A1 MYOCARDIAL INFARCTION TYPE 2 05/10/2019 STEFFI TONY MD, Ot I27. 20 PULMONARY HYPERTENSION, UNSPECIFIED 05/10/2019 STEFFI TONY MD, Ot I42. 9 CARDIOMYOPATHY, UNSPECIFIED 05/10/2019 STEFFI TONY MD Ot I44. 7 LEFT BUNDLE-BRANCH BLOCK, UNSPECIFIED 05/10/2019 STEFFI TONY MD Ot I48. 0 PAROXYSMAL ATRIAL FIBRILLATION 05/10/2019 STEFFI TONY MD, Ot I48. 92 UNSPECIFIED ATRIAL FLUTTER 05/10/2019 STEFFI TONY MD, Ot I50. 33 ACUTE ON CHRONIC DIASTOLIC (CONGESTIVE) 05/10/2019 STEFFI TONY MD, Ot J44. 1 CHRONIC OBSTRUCTIVE PULMONARY DISEASE W 05/10/2019 STEFFI TONY MD, Ot J96. 21 ACUTE AND CHRONIC RESPIRATORY FAILURE WI 05/10/2019 STEFFI TONY MD, Ot N17. 9 ACUTE KIDNEY FAILURE, UNSPECIFIED 05/10/2019 STEFFI TONY MD, Ot N18. 4 CHRONIC KIDNEY DISEASE, STAGE 4 (SEVERE) 05/10/2019 STEFFI TONY MD Ot Z68. 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 49 ACQUIRED ABSENCE OF OTHER SPECIFIED PART 05/10/2019 STEFFI TONY MD Ot Z90.710 ACQUIRED ABSENCE OF BOTH CERVIX AND UTER 05/10/2019 STEFFI TONY MD Ot Z95.810 PRESENCE OF AUTOMATIC (IMPLANTABLE) CARD 05/10/2019 STEFFI TONY MD Ot Z99. 81 DEPENDENCE ON SUPPLEMENTAL OXYGEN 05/10/2019 STEFFI TONY MD Ot D64. 9 ANEMIA, UNSPECIFIED 05/10/2019 STEFFI TONY MD, Ot D86. 9 SARCOIDOSIS, UNSPECIFIED 05/10/2019 STEFFI TONY MD Ot E66. 01 MORBID (SEVERE) OBESITY DUE TO EXCESS CA 05/10/2019 STEFFI TONY MD Ot F17.200 NICOTINE DEPENDENCE, UNSPECIFIED, UNCOMP 05/10/2019 STEFFI TONY MD Ot G47. 33 OBSTRUCTIVE SLEEP APNEA (ADULT) (PEDIATR 05/10/2019 STEFFI TONY MD Ot I08. 1 RHEUMATIC DISORDERS OF BOTH MITRAL AND T 05/10/2019 STEFFI TONY MD, Ot I13. 0 HYP HRT CHR [facility] DIS W HRT FAIL AND ST 05/10/2019 STEFFI TONY MD, Ot I21. A1 MYOCARDIAL INFARCTION TYPE 2 05/10/2019 STEFFI TONY MD, Ot I27. 20 PULMONARY HYPERTENSION, UNSPECIFIED 05/10/2019 STEFFI TONY MD, Ot I42. 9 CARDIOMYOPATHY, UNSPECIFIED 05/10/2019 STEFFI TONY MD, Ot I44. 7 LEFT BUNDLE-BRANCH BLOCK, UNSPECIFIED 05/10/2019 STEFFI TONY MD, Ot I48. 0 PAROXYSMAL ATRIAL FIBRILLATION 05/10/2019 STEFFI TONY MD, Ot I48. 92 UNSPECIFIED ATRIAL FLUTTER 05/10/2019 STEFFI TONY MD, Ot I50. 33 ACUTE ON CHRONIC DIASTOLIC (CONGESTIVE) 05/10/2019 STEFFI TONY MD, Ot J44. 9 CHRONIC OBSTRUCTIVE PULMONARY DISEASE, U 05/10/2019 STEFFI TONY MD, Ot J96. 21 ACUTE AND CHRONIC RESPIRATORY FAILURE WI 05/10/2019 STEFFI TONY MD, Ot N17. 9 ACUTE KIDNEY FAILURE, UNSPECIFIED 05/10/2019 STEFFI TONY MD, Ot N18. 4 CHRONIC KIDNEY DISEASE, STAGE 4 (SEVERE) 05/10/2019 STEFFI TONY MD Ot Z68. 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 49 ACQUIRED ABSENCE OF OTHER SPECIFIED PART 05/10/2019 STEFFI TONY MD Ot Z90.710 ACQUIRED ABSENCE OF BOTH CERVIX AND UTER 05/10/2019 STEFFI TONY MD, Ot Z95.810 PRESENCE OF AUTOMATIC (IMPLANTABLE) CARD 05/10/2019 STEFFI TONY MD Ot Z99. 81 DEPENDENCE ON SUPPLEMENTAL OXYGEN 05/10/2019 STEFFI TONY MD, Ot D64. 9 ANEMIA, UNSPECIFIED 05/10/2019 STEFFI TONY MD, Ot D86. 9 SARCOIDOSIS, UNSPECIFIED 05/10/2019 STEFFI TONY MD, Ot E66. 01 MORBID (SEVERE) OBESITY DUE TO EXCESS CA 05/10/2019 STEFFI TONY MD, Ot F17.200 NICOTINE DEPENDENCE, UNSPECIFIED, UNCOMP 05/10/2019 STEFFI TONY MD, Ot G47. 33 OBSTRUCTIVE SLEEP APNEA (ADULT) (PEDIATR 05/10/2019 STEFFI TONY MD, Ot I08. 1 RHEUMATIC DISORDERS OF BOTH MITRAL AND T 05/10/2019 STEFFI TONY MD, Ot I13. 0 HYP HRT CHR [facility] DIS W HRT FAIL AND ST 05/10/2019 STEFFI TONY MD, Ot I21. A1 MYOCARDIAL INFARCTION TYPE 2 05/10/2019 STEFFI TONY MD, Ot I27. 20 PULMONARY HYPERTENSION, UNSPECIFIED 05/10/2019 STEFFI TONY MD, Ot I42. 9 CARDIOMYOPATHY, UNSPECIFIED 05/10/2019 STEFFI TONY MD, Ot I44. 7 LEFT BUNDLE-BRANCH BLOCK, UNSPECIFIED 05/10/2019 STEFFI TONY MD, Ot I48. 0 PAROXYSMAL ATRIAL FIBRILLATION 05/10/2019 STEFFI TONY MD, Ot I48. 92 UNSPECIFIED ATRIAL FLUTTER 05/10/2019 STEFFI TONY MD, Ot I50. 33 ACUTE ON CHRONIC DIASTOLIC (CONGESTIVE) 05/10/2019 STEFFI TONY MD, Ot J44. 1 CHRONIC OBSTRUCTIVE PULMONARY DISEASE W 05/10/2019 STEFFI TONY MD, Ot J96. 21 ACUTE AND CHRONIC RESPIRATORY FAILURE WI 05/10/2019 STEFFI TONY MD, Ot N17. 9 ACUTE KIDNEY FAILURE, UNSPECIFIED 05/10/2019 STEFFI TONY MD, Ot N18. 4 CHRONIC KIDNEY DISEASE, STAGE 4 (SEVERE) 05/10/2019 STEFFI TONY MD, Ot Z68. 41 BODY MASS INDEX (BMI) 40.0-44.9, ADULT 05/10/2019 STEFFI TONY MD, Ot Z79. 01 FDC (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 OF ANTICOAGULANT 05/10/2019 STEFFI TONY MD Ot Z90. 49 ACQUIRED ABSENCE OF OTHER SPECIFIED PART 05/10/2019 STEFFI TONY MD, Ot Z90.710 ACQUIRED ABSENCE OF BOTH CERVIX AND UTER 05/10/2019 STEFFI TONY MD Ot Z95.810 PRESENCE OF AUTOMATIC (IMPLANTABLE) CARD 05/10/2019 STEFFI TONY MD Ot Z99. 81 DEPENDENCE ON SUPPLEMENTAL OXYGEN 05/10/2019 STEFFI TONY MD, Ot D64. 9 ANEMIA, UNSPECIFIED 05/10/2019 STEFFI TONY MD, Ot D86. 9 SARCOIDOSIS, UNSPECIFIED 05/10/2019 STEFFI TONY MD, Ot E66. 01 MORBID (SEVERE) OBESITY DUE TO EXCESS CA 05/10/2019 STEFFI TONY MD, Ot F17.200 NICOTINE DEPENDENCE, UNSPECIFIED, UNCOMP 05/10/2019 STEFFI TONY MD, Ot G47. 33 OBSTRUCTIVE SLEEP APNEA (ADULT) (PEDIATR 05/10/2019 STEFFI TONY MD, Ot I08. 1 RHEUMATIC DISORDERS OF BOTH MITRAL AND T 05/10/2019 STEFFI TONY MD, Ot I13. 0 HYP HRT CHR [facility] DIS W HRT FAIL AND ST 05/10/2019 STEFFI TONY MD, Ot I21. A1 MYOCARDIAL INFARCTION TYPE 2 05/10/2019 STEFFI TONY MD, Ot I27. 20 PULMONARY HYPERTENSION, UNSPECIFIED 05/10/2019 STEFFI TONY MD Ot I42. 9 CARDIOMYOPATHY, UNSPECIFIED 05/10/2019 STEFFI TONY MD, Ot I44. 7 LEFT BUNDLE-BRANCH BLOCK, UNSPECIFIED 05/10/2019 STEFFI TONY MD Ot I48. 0 PAROXYSMAL ATRIAL FIBRILLATION 05/10/2019 STEFFI TONY MD, Ot I48. 92 UNSPECIFIED ATRIAL FLUTTER 05/10/2019 STEFFI TONY MD, Ot I50. 33 ACUTE ON CHRONIC DIASTOLIC (CONGESTIVE) 05/10/2019 STEFFI TONY MD, Ot J44. 1 CHRONIC OBSTRUCTIVE PULMONARY DISEASE W 05/10/2019 STEFFI TONY MD, Ot J44. 9 CHRONIC OBSTRUCTIVE PULMONARY DISEASE, U 05/10/2019 STEFFI TONY MD, Ot J96. 21 ACUTE AND CHRONIC RESPIRATORY FAILURE WI 05/10/2019 STEFFI TONY MD, Ot N17. 9 ACUTE KIDNEY FAILURE, UNSPECIFIED 05/10/2019 STEFFI TONY MD, Ot N18. 4 CHRONIC KIDNEY DISEASE, STAGE 4 (SEVERE) 05/10/2019 STEFFI TONY MD, Ot Z68. 41 BODY MASS INDEX (BMI) 40.0-44.9, ADULT 05/10/2019 STEFFI TONY MD, Ot Z79. 01 FDC (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 OF ANTICOAGULANT 05/10/2019 STEFFI TONY MD, Ot Z90. 49 ACQUIRED ABSENCE OF OTHER SPECIFIED PART 05/10/2019 STEFFI TONY MD, Ot Z90.710 ACQUIRED ABSENCE OF BOTH CERVIX AND UTER 05/10/2019 STEFFI TONY MD, Ot Z95.810 PRESENCE OF AUTOMATIC (IMPLANTABLE) CARD 05/10/2019 STEFFI TONY MD, Ot Z99. 81 DEPENDENCE ON SUPPLEMENTAL OXYGEN 05/11/2019 STEFFI TONY MD, Ot D64. 9 ANEMIA, UNSPECIFIED 05/11/2019 STEFFI TONY MD, Ot E66. 2 MORBID (SEVERE) OBESITY WITH ALVEOLAR HY 05/11/2019 STEFFI TONY MD, Ot I13. 0 HYP HRT CHR [facility] DIS W HRT FAIL AND ST 05/11/2019 STEFFI TONY MD, Ot I27. 20 PULMONARY HYPERTENSION, UNSPECIFIED 05/11/2019 STEFFI TONY MD, Ot I42. 9 CARDIOMYOPATHY, UNSPECIFIED 05/11/2019 STEFFI TONY MD, Ot I44. 7 LEFT BUNDLE-BRANCH BLOCK, UNSPECIFIED 05/11/2019 STEFFI TONY MD, Ot I48. 91 UNSPECIFIED ATRIAL FIBRILLATION 05/11/2019 STEFFI TONY MD, Ot I48. 92 UNSPECIFIED ATRIAL FLUTTER 05/11/2019 STEFFI TONY MD, Ot I50. 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 1 CHRONIC OBSTRUCTIVE PULMONARY DISEASE W 05/11/2019 STEFFI TONY MD, Ot J96. 21 ACUTE AND CHRONIC RESPIRATORY FAILURE WI 05/11/2019 STEFFI TONY MD, Ot N18. 4 CHRONIC KIDNEY DISEASE, STAGE 4 (SEVERE) 05/11/2019 STEFFI TONY MD, Ot R07. 89 OTHER CHEST PAIN 05/11/2019 STEFFI TONY MD, Ot R78. 89 FINDING OF OTH SUBSTANCES, NOT NORMALLY 05/11/2019 STEFFI TONY MD, Ot Z68. 41 BODY MASS INDEX (BMI) 40.0-44.9, ADULT 05/11/2019 STEFFI TONY MD, Ot Z79. 01 FDC (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 OF ANTICOAGULANT 05/11/2019 STEFFI TONY MD, Ot Z87. 01 PERSONAL HISTORY OF PNEUMONIA (RECURRENT 05/11/2019 STEFFI TONY MD, Ot Z90.710 ACQUIRED ABSENCE OF BOTH CERVIX AND UTER 05/11/2019 STEFFI TONY MD, Ot Z91. 19 PATIENT'S NONCOMPLIANCE W OT MEDICAL TR 05/11/2019 STEFFI TONY MD, Ot Z95.810 PRESENCE OF AUTOMATIC (IMPLANTABLE) CARD 05/11/2019 STEFFI TONY MD, Ot Z99. 81 DEPENDENCE ON SUPPLEMENTAL OXYGEN 05/11/2019 STEFFI TONY MD, Ot D64. 9 ANEMIA, UNSPECIFIED 05/11/2019 STEFFI TONY MD, Ot E66. 2 MORBID (SEVERE) OBESITY WITH ALVEOLAR HY 05/11/2019 STEFFI TONY MD, Ot I13. 0 HYP HRT CHR [facility] DIS W HRT FAIL AND ST 05/11/2019 STEFFI TONY MD, Ot I27. 20 PULMONARY HYPERTENSION, UNSPECIFIED 05/11/2019 STEFFI TONY MD, Ot I42. 9 CARDIOMYOPATHY, UNSPECIFIED 05/11/2019 STEFFI TONY MD, Ot I44. 7 LEFT BUNDLE-BRANCH BLOCK, UNSPECIFIED 05/11/2019 STEFFI TONY MD, Ot I48. 91 UNSPECIFIED ATRIAL FIBRILLATION 05/11/2019 STEFFI TONY MD, Ot I48. 92 UNSPECIFIED ATRIAL FLUTTER 05/11/2019 STEFFI TONY MD, Ot I50. 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 1 CHRONIC OBSTRUCTIVE PULMONARY DISEASE W 05/11/2019 STEFFI TONY MD, Ot J96. 21 ACUTE AND CHRONIC RESPIRATORY FAILURE [place] 05/11/2019 STEFFI TONY MD, Ot N18. 4 CHRONIC KIDNEY DISEASE, STAGE 4 (SEVERE) 05/11/2019 STEFFI TONY MD, Ot R07. 89 OTHER CHEST PAIN 05/11/2019 STEFFI TONY MD, Ot R78. 89 FINDING OF OTH SUBSTANCES, NOT NORMALLY 05/11/2019 STEFFI TONY MD, Ot Z68. 41 BODY MASS INDEX (BMI) 40.0-44.9, ADULT 05/11/2019 STEFFI TONY MD, Ot Z79. 01 FDC (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 OF ANTICOAGULANT 05/11/2019 STEFFI TONY MD, Ot Z87. 01 PERSONAL HISTORY OF PNEUMONIA (RECURRENT 05/11/2019 STEFFI TONY MD, Ot Z90.710 ACQUIRED ABSENCE OF BOTH CERVIX AND UTER 05/11/2019 STEFFI TONY MD, Ot Z91. 19 PATIENT'S NONCOMPLIANCE W OTH MEDICAL TR 05/11/2019 STEFFI TONY MD, Ot Z95.810 PRESENCE OF AUTOMATIC (IMPLANTABLE) CARD 05/11/2019 STEFFI TONY MD, Ot Z99. 81 DEPENDENCE ON SUPPLEMENTAL OXYGEN 05/11/2019 STEFFI TONY MD, Ot D64. 9 ANEMIA, UNSPECIFIED 05/11/2019 STEFFI TONY MD, Ot E66. 2 MORBID (SEVERE) OBESITY WITH ALVEOLAR HY 05/11/2019 STEFFI TONY MD, Ot I13. 0 HYP HRT CHR [facility] DIS W HRT FAIL AND ST 05/11/2019 STEFFI TONY MD, Ot I27. 20 PULMONARY HYPERTENSION, UNSPECIFIED 05/11/2019 STEFFI TONY MD, Ot I42. 9 CARDIOMYOPATHY, UNSPECIFIED 05/11/2019 STEFFI TONY MD, Ot I44. 7 LEFT BUNDLE-BRANCH BLOCK, UNSPECIFIED 05/11/2019 STEFFI TONY MD, Ot I48. 91 UNSPECIFIED ATRIAL FIBRILLATION 05/11/2019 STEFFI TONY MD, Ot I48. 92 UNSPECIFIED ATRIAL FLUTTER 05/11/2019 STEFFI TONY MD, Ot I50. 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 1 CHRONIC OBSTRUCTIVE PULMONARY DISEASE W 05/11/2019 STEFFI TONY MD, Ot J96. 21 ACUTE AND CHRONIC RESPIRATORY FAILURE [place] 05/11/2019 STEFFI TONY MD, Ot N18. 4 CHRONIC KIDNEY DISEASE, STAGE 4 (SEVERE) 05/11/2019 STEFFI TONY MD, Ot R07. 89 OTHER CHEST PAIN 05/11/2019 STEFFI TONY MD, Ot R78. 89 FINDING OF OTH SUBSTANCES, NOT NORMALLY 05/11/2019 STEFFI TONY MD, Ot Z68. 41 BODY MASS INDEX (BMI) 40.0-44.9, ADULT 05/11/2019 STEFFI TONY MD, Ot Z79. 01 FDC (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 OF ANTICOAGULANT 05/11/2019 STEFFI TONY MD, Ot Z87. 01 PERSONAL HISTORY OF PNEUMONIA (RECURRENT 05/11/2019 STEFFI TONY MD, Ot Z90.710 ACQUIRED ABSENCE OF BOTH CERVIX AND UTER 05/11/2019 STEFFI TONY MD, Ot Z91. 19 PATIENT'S NONCOMPLIANCE W OT MEDICAL TR 05/11/2019 STEFFI TONY MD, Ot Z95.810 PRESENCE OF AUTOMATIC (IMPLANTABLE) CARD 05/11/2019 STEFFI TONY MD, Ot Z99. 81 DEPENDENCE ON SUPPLEMENTAL OXYGEN 05/18/2019 THIAGO LONGO APRN Ot D86.0 SARCOIDOSIS OF LUNG 05/18/2019 THIAGO LONGO APRN Ot G47.33 OBSTRUCTIVE SLEEP APNEA (ADULT) (PEDIATR 05/18/2019 THIAGO LONGO APRN Ot G47.50 PARASOMNIA, UNSPECIFIED 05/18/2019 THIAGO LONGO APRN Ot J45.909 UNSPECIFIED ASTHMA, UNCOMPLICATED 05/18/2019 THIAGO LONGO APRN Ot M79.89 OTHER SPECIFIED SOFT TISSUE DISORDERS 05/18/2019 THIAGO LONGO APRN Ot R09.02 HYPOXEMIA 05/18/2019 THIAGO LONGO APRN Ot R91.8 OTHER NONSPECIFIC ABNORMAL FINDING OF 05/19/2019 STEFFI TONY MD, Ot D86. 9 SARCOIDOSIS, UNSPECIFIED 05/19/2019 STEFFI TONY MD, Ot E66. 01 MORBID (SEVERE) OBESITY DUE TO EXCESS CA 05/19/2019 STEFFI TONY MD, Ot G47. 30 SLEEP APNEA, UNSPECIFIED 05/19/2019 STEFFI TONY MD Ot I13. 0 HYP HRT CHR [place] DIS W HRT FAIL AND ST 05/19/2019 STEFFI TONY MD, Ot I27. 20 PULMONARY HYPERTENSION, UNSPECIFIED 05/19/2019 STEFFI TONY MD, Ot I44. 7 LEFT BUNDLE-BRANCH BLOCK, UNSPECIFIED 05/19/2019 STEFFI TONY MD, Ot I48. 0 PAROXYSMAL ATRIAL FIBRILLATION 05/19/2019 STEFFI TONY MD, Ot I50. 23 ACUTE ON CHRONIC SYSTOLIC (CONGESTIVE) H 05/19/2019 STEFFI TONY MD, Ot J44. 9 CHRONIC OBSTRUCTIVE PULMONARY DISEASE, U 05/19/2019 STEFFI TONY MD, Ot N18. 4 CHRONIC KIDNEY DISEASE, STAGE 4 (SEVERE) 05/19/2019 STEFFI TONY MD, Ot R09. 81 NASAL CONGESTION 05/19/2019 STEFFI TONY MD, Ot R53. 81 OTHER MALAISE 05/19/2019 STEFFI TONY MD, Ot Z68. 41 BODY MASS INDEX (BMI) 40.0-44.9, ADULT 05/19/2019 STEFFI TONY MD Ot Z79. 01 PAVER INSTALLER (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 OF ANTICOAGULANT 05/19/2019 STEFFI TONY MD Ot Z79. 52 FDC (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 OF SYSTEMIC STER 05/19/2019 SETFFI TONY MD, Ot Z79. 82 PAVER INSTALLER (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 OF ASPIRIN 05/19/2019 STEFFI TONY MD, Ot Z79.899 OTHER PAVER INSTALLER (CURRENT) DRUG THERAPY 05/19/2019 STEFFI TONY MD, Ot Z82. 49 FAMILY HX OF ISCHEM HEART DIS AND OTH DI 05/19/2019 STEFFI TONY MD, Ot Z90.710 ACQUIRED ABSENCE OF BOTH CERVIX AND UTER 05/19/2019 STEFFI TONY MD, Ot D86. 9 SARCOIDOSIS, UNSPECIFIED 05/19/2019 STEFFI TONY MD, Ot E66. 01 MORBID (SEVERE) OBESITY DUE TO EXCESS CA 05/19/2019 STEFFI TONY MD Ot G47. 30 SLEEP APNEA, UNSPECIFIED 05/19/2019 STEFFI TONY MD Ot I13. 0 HYP HRT CHR [place] DIS W HRT FAIL AND ST 05/19/2019 STEFFI TONY MD, Ot I27. 20 PULMONARY HYPERTENSION, UNSPECIFIED 05/19/2019 STEFFI TONY MD Ot I44. 7 LEFT BUNDLE-BRANCH BLOCK, UNSPECIFIED 05/19/2019 STEFFI TONY MD Ot I48. 0 PAROXYSMAL ATRIAL FIBRILLATION 05/19/2019 STEFFI TONY MD Ot I50. 23 ACUTE ON CHRONIC SYSTOLIC (CONGESTIVE) H 05/19/2019 STEFFI TONY MD, Ot J44. 9 CHRONIC OBSTRUCTIVE PULMONARY DISEASE, U 05/19/2019 STEFFI TONY MD, Ot N18. 4 CHRONIC KIDNEY DISEASE, STAGE 4 (SEVERE) 05/19/2019 STEFFI TONY MD Ot R09. 81 NASAL CONGESTION 05/19/2019 STEFFI TONY MD, Ot R53. 81 OTHER MALAISE 05/19/2019 STEFFI TONY MD Ot Z68. 41 BODY MASS INDEX (BMI) 40.0-44.9, ADULT 05/19/2019 STEFFI TONY MD Ot Z79. 01 FDC (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 OF ANTICOAGULANT 05/19/2019 STEFFI TONY MD Ot Z79. 52 PAVER INSTALLER (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 OF SYSTEMIC STER 05/19/2019 STEFFI TONY MD, Ot Z79. 82 FDC (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 OF ASPIRIN 05/19/2019 STEFFI TONY MD, Ot Z79.899 OTHER FDC (CURRENT) DRUG THERAPY 05/19/2019 STEFFI TONY MD, Ot Z82. 49 FAMILY HX OF ISCHEM HEART DIS AND OTH DI 05/19/2019 STEFFI TONY MD, Ot Z90.710 ACQUIRED ABSENCE OF BOTH CERVIX AND UTER 05/19/2019 STEFFI TONY MD, Ot D64. 9 ANEMIA, UNSPECIFIED 05/19/2019 STEFFI TONY MD Ot E66. 2 MORBID (SEVERE) OBESITY WITH ALVEOLAR HY 05/19/2019 STEFFI TONY MD Ot I13. 0 HYP HRT CHR [place] DIS W HRT FAIL AND ST 05/19/2019 STEFFI TONY MD, Ot I27. 20 PULMONARY HYPERTENSION, UNSPECIFIED 05/19/2019 STEFFI TONY MD Ot I42. 9 CARDIOMYOPATHY, UNSPECIFIED 05/19/2019 STEFFI TONY MD Ot I44. 7 LEFT BUNDLE-BRANCH BLOCK, UNSPECIFIED 05/19/2019 STEFFI TONY MD Ot I48. 91 UNSPECIFIED ATRIAL FIBRILLATION 05/19/2019 STEFFI TONY MD Ot I48. 92 UNSPECIFIED ATRIAL FLUTTER 05/19/2019 STEFFI TONY MD Ot I50. 42 CHRONIC COMBINED SYSTOLIC AND DIASTOLIC 05/19/2019 STEFFI TONY MD Ot J44. 1 CHRONIC OBSTRUCTIVE PULMONARY DISEASE W 05/19/2019 STEFFI TONY MD, Ot J96. 21 ACUTE AND CHRONIC RESPIRATORY FAILURE WI 05/19/2019 STEFFI TONY MD Ot N18. 4 CHRONIC KIDNEY DISEASE, STAGE 4 (SEVERE) 05/19/2019 STEFFI TONY MD Ot R07. 89 OTHER CHEST PAIN 05/19/2019 STEFFI TONY MD Ot R78. 89 FINDING OF OTH SUBSTANCES, NOT NORMALLY 05/19/2019 STEFFI TONY MD, Ot Z68. 41 BODY MASS INDEX (BMI) 40.0-44.9, ADULT 05/19/2019 STEFFI TONY MD, Ot Z79. 01 FDC (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 OF ANTICOAGULANT 05/19/2019 STEFFI TONY MD, Ot Z87. 01 PERSONAL HISTORY OF PNEUMONIA (RECURRENT 05/19/2019 STEFFI TONY MD, Ot Z90.710 ACQUIRED ABSENCE OF BOTH CERVIX AND UTER 05/19/2019 STEFFI TONY MD, Ot Z91. 19 PATIENT'S NONCOMPLIANCE W OT MEDICAL TR 05/19/2019 STEFFI TONY MD, Ot Z95.810 PRESENCE OF AUTOMATIC (IMPLANTABLE) CARD 05/19/2019 STEFFI TONY MD, Ot Z99. 81 DEPENDENCE ON SUPPLEMENTAL OXYGEN 05/27/2019 XIN MASTERSON MD, Ot D63. 1 ANEMIA IN CHRONIC KIDNEY DISEASE 05/27/2019 XIN MASTERSON MD, Ot D64. 9 ANEMIA, UNSPECIFIED 05/27/2019 XIN MASTERSON MD, Ot D86. 9 SARCOIDOSIS, UNSPECIFIED 05/27/2019 XIN MASTERSON MD, Ot E66. 2 MORBID (SEVERE) OBESITY WITH ALVEOLAR HY 05/27/2019 XIN MASTERSON MD, Ot I08. 1 RHEUMATIC DISORDERS OF BOTH MITRAL AND T 05/27/2019 XIN MASTERSON MD, Ot I13. 0 HYP HRT CHR [place] DIS W HRT FAIL AND ST 05/27/2019 XIN MASTERSON MD, Ot I21. A1 MYOCARDIAL INFARCTION TYPE 2 05/27/2019 XIN MASTERSON MD, Ot I25. 10 ATHSCL HEART DISEASE OF [place] CORONARY 05/27/2019 XIN MASTERSON MD, Ot I27. 20 PULMONARY HYPERTENSION, UNSPECIFIED 05/27/2019 XIN MASTERSON MD, Ot I42. 9 CARDIOMYOPATHY, UNSPECIFIED 05/27/2019 XIN MASTERSON MD, Ot I44. 7 LEFT BUNDLE-BRANCH BLOCK, UNSPECIFIED 05/27/2019 XIN MASTERSON MD, Ot I48. 0 PAROXYSMAL ATRIAL FIBRILLATION 05/27/2019 XIN MASTERSON MD, Ot I48. 92 UNSPECIFIED ATRIAL FLUTTER 05/27/2019 XIN MASTERSON MD, Ot I50. 43 ACUTE ON CHRONIC COMBINED SYSTOLIC AND D 05/27/2019 XIN MASTERSON MD, Ot J44. 9 CHRONIC OBSTRUCTIVE PULMONARY DISEASE, U 05/27/2019 XIN MASTERSON MD, Ot J96. 11 CHRONIC RESPIRATORY FAILURE WITH HYPOXIA 05/27/2019 XIN MASTERSON MD, Ot J98. 11 ATELECTASIS 05/27/2019 XIN MASTERSON MD, Ot N17. 9 ACUTE KIDNEY FAILURE, UNSPECIFIED 05/27/2019 XIN MASTERSON MD, Ot N18. 4 CHRONIC KIDNEY DISEASE, STAGE 4 (SEVERE) 05/27/2019 XIN MASTERSON MD, Ot R53. 81 OTHER MALAISE 05/27/2019 XIN MASTERSON MD, Ot Z23 ENCOUNTER FOR IMMUNIZATION 05/27/2019 XIN MASTERSON MD, Ot Z68. 41 BODY MASS INDEX (BMI) 40.0-44.9, ADULT 05/27/2019 XIN MASTERSON MD, Ot Z79. 01 FDC (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 OF ANTICOAGULANT 05/27/2019 XIN MASTERSON MD, Ot Z90. 49 ACQUIRED ABSENCE OF OTHER SPECIFIED PART 05/27/2019 XIN MASTERSON MD, Ot Z90.710 ACQUIRED ABSENCE OF BOTH CERVIX AND UTER 05/27/2019 XIN MASTERSON MD, Ot Z91. 14 PATIENT'S OTHER NONCOMPLIANCE WITH MEDIC 05/27/2019 XIN MASTERSON MD, Ot Z95.810 PRESENCE OF AUTOMATIC (IMPLANTABLE) CARD 05/27/2019 XIN MASTERSON MD, Ot Z99. 81 DEPENDENCE ON SUPPLEMENTAL OXYGEN 06/01/2019 STEFFI TONY MD, Ot D63. 1 ANEMIA IN CHRONIC KIDNEY DISEASE 06/01/2019 STEFFI TONY MD, Ot D86. 0 SARCOIDOSIS OF LUNG 06/01/2019 STEFFI TONY MD, Ot E66. 2 MORBID (SEVERE) OBESITY WITH ALVEOLAR HY 06/01/2019 STEFFI TONY MD, Ot E87. 2 ACIDOSIS 06/01/2019 STEFFI TONY MD, Ot I08. 1 RHEUMATIC DISORDERS OF BOTH MITRAL AND T 06/01/2019 STEFFI TONY MD, Ot I12. 9 HYPERTENSIVE CHRONIC KIDNEY DISEASE W ST 06/01/2019 STEFFI TONY MD, Ot I27. 20 PULMONARY HYPERTENSION, UNSPECIFIED 06/01/2019 STEFFI TONY MD Ot I42. 8 OTHER CARDIOMYOPATHIES 06/01/2019 STEFFI TONY MD, Ot I44. 7 LEFT BUNDLE-BRANCH BLOCK, UNSPECIFIED 06/01/2019 STEFFI TONY MD, Ot I48. 0 PAROXYSMAL ATRIAL FIBRILLATION 06/01/2019 STEFFI TONY MD Ot I50. 33 ACUTE ON CHRONIC DIASTOLIC (CONGESTIVE) 06/01/2019 STEFFI TONY MD Ot J18. 1 LOBAR PNEUMONIA, UNSPECIFIED ORGANISM 06/01/2019 STEFFI TONY MD Ot J30. 2 OTHER SEASONAL ALLERGIC RHINITIS 06/01/2019 STEFFI TONY MD, Ot J44. 1 CHRONIC OBSTRUCTIVE PULMONARY DISEASE W 06/01/2019 STEFFI TONY MD, Ot J96. 21 ACUTE AND CHRONIC RESPIRATORY FAILURE WI 06/01/2019 STEFFI TONY MD Ot N18. 4 CHRONIC KIDNEY DISEASE, STAGE 4 (SEVERE) 06/01/2019 STEFFI TONY MD Ot N28. 9 DISORDER OF KIDNEY AND URETER, UNSPECIFI 06/01/2019 STEFFI TONY MD Ot R04. 0 EPISTAXIS 06/01/2019 STEFFI TONY MD Ot R04. 2 HEMOPTYSIS 06/01/2019 STEFFI TONY MD Ot R79. 89 OTHER SPECIFIED ABNORMAL FINDINGS OF BLO 06/01/2019 STEFFI TONY MD Ot Z79. 01 FDC (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 OF ANTICOAGULANT 06/01/2019 STEFFI TONY MD Ot Z95.810 PRESENCE OF AUTOMATIC (IMPLANTABLE) CARD 06/02/2019 STEFFI TONY MD Ot D63. 1 ANEMIA IN CHRONIC KIDNEY DISEASE 06/02/2019 STEFFI TONY MD Ot D86. 0 SARCOIDOSIS OF LUNG 06/02/2019 STEFFI TONY MD Ot E66. 2 MORBID (SEVERE) OBESITY WITH ALVEOLAR HY 06/02/2019 STEFFI TONY MD Ot E87. 2 ACIDOSIS 06/02/2019 STEFFI TONY MD Ot I08. 1 RHEUMATIC DISORDERS OF BOTH MITRAL AND T 06/02/2019 STEFFI TONY MD Ot I12. 9 HYPERTENSIVE CHRONIC KIDNEY DISEASE W ST 06/02/2019 STEFFI TONY MD, Ot I27. 20 PULMONARY HYPERTENSION, UNSPECIFIED 06/02/2019 STEFFI TONY MD Ot I42. 8 OTHER CARDIOMYOPATHIES 06/02/2019 STEFFI TONY MD Ot I44. 7 LEFT BUNDLE-BRANCH BLOCK, UNSPECIFIED 06/02/2019 STEFFI TONY MD Ot I48. 0 PAROXYSMAL ATRIAL FIBRILLATION 06/02/2019 STEFFI TONY MD Ot I50. 33 ACUTE ON CHRONIC DIASTOLIC (CONGESTIVE) 06/02/2019 STEFFI TONY MD Ot J18. 1 LOBAR PNEUMONIA, UNSPECIFIED ORGANISM 06/02/2019 STEFFI TONY MD Ot J30. 2 OTHER SEASONAL ALLERGIC RHINITIS 06/02/2019 STEFFI TONY MD, Ot J44. 1 CHRONIC OBSTRUCTIVE PULMONARY DISEASE W 06/02/2019 STEFFI TONY MD Ot J96. 21 ACUTE AND CHRONIC RESPIRATORY FAILURE WI 06/02/2019 STEFFI TONY MD Ot N18. 4 CHRONIC KIDNEY DISEASE, STAGE 4 (SEVERE) 06/02/2019 STEFFI TONY MD Ot N28. 9 DISORDER OF KIDNEY AND URETER, UNSPECIFI 06/02/2019 STEFFI TONY MD Ot R04. 0 EPISTAXIS 06/02/2019 STEFFI TONY MD Ot R04. 2 HEMOPTYSIS 06/02/2019 STEFFI TONY MD Ot R79. 89 OTHER SPECIFIED ABNORMAL FINDINGS OF BLO 06/02/2019 STEFFI TONY MD Ot Z79. 01 PAVER INSTALLER (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 OF ANTICOAGULANT 06/02/2019 STEFFI TONY MD Ot Z95.810 PRESENCE OF AUTOMATIC (IMPLANTABLE) CARD 06/02/2019 STEFFI TONY MD Ot D63. 1 ANEMIA IN CHRONIC KIDNEY DISEASE 06/02/2019 STEFFI TONY MD Ot D86. 0 SARCOIDOSIS OF LUNG 06/02/2019 STEFFI TONY MD Ot E66. 2 MORBID (SEVERE) OBESITY WITH ALVEOLAR HY 06/02/2019 STEFFI TONY MD Ot E87. 2 ACIDOSIS 06/02/2019 STEFFI TONY MD Ot I08. 1 RHEUMATIC DISORDERS OF BOTH MITRAL AND T 06/02/2019 STEFFI TONY MD Ot I12. 9 HYPERTENSIVE CHRONIC KIDNEY DISEASE W ST 06/02/2019 STEFFI TONY MD Ot I13. 0 HYP HRT CHR [place] DIS W HRT FAIL AND ST 06/02/2019 STEFFI TONY MD, Ot I27. 20 PULMONARY HYPERTENSION, UNSPECIFIED 06/02/2019 STEFFI TONY MD Ot I42. 8 OTHER CARDIOMYOPATHIES 06/02/2019 STEFFI TONY MD, Ot I44. 7 LEFT BUNDLE-BRANCH BLOCK, UNSPECIFIED 06/02/2019 STEFFI TONY MD, Ot I48. 0 PAROXYSMAL ATRIAL FIBRILLATION 06/02/2019 STEFFI TONY MD, Ot I50. 33 ACUTE ON CHRONIC DIASTOLIC (CONGESTIVE) 06/02/2019 STEFFI TONY MD Ot I50. 43 ACUTE ON CHRONIC COMBINED SYSTOLIC AND D 06/02/2019 STEFFI TONY MD, Ot J18. 1 LOBAR PNEUMONIA, UNSPECIFIED ORGANISM 06/02/2019 STEFFI TONY MD, Ot J18. 9 PNEUMONIA, UNSPECIFIED ORGANISM 06/02/2019 STEFFI TONY MD, Ot J30. 2 OTHER SEASONAL ALLERGIC RHINITIS 06/02/2019 STEFFI TONY MD Ot J44. 0 CHR OBSTRUCTIVE PULMON DISEASE WITH (ACU 06/02/2019 STEFFI TONY MD Ot J44. 1 CHRONIC OBSTRUCTIVE PULMONARY DISEASE W 06/02/2019 STEFFI TONY MD Ot J96. 21 ACUTE AND CHRONIC RESPIRATORY FAILURE WI 06/02/2019 STEFFI TONY MD Ot N18. 4 CHRONIC KIDNEY DISEASE, STAGE 4 (SEVERE) 06/02/2019 STEFFI TONY MD Ot N28. 9 DISORDER OF KIDNEY AND URETER, UNSPECIFI 06/02/2019 STEFFI TONY MD Ot R04. 0 EPISTAXIS 06/02/2019 STEFFI TONY MD Ot R04. 2 HEMOPTYSIS 06/02/2019 STEFFI TONY MD Ot R79. 89 OTHER SPECIFIED ABNORMAL FINDINGS OF BLO 06/02/2019 STEFFI TONY MD Ot Z68. 39 BODY MASS INDEX (BMI) 39.0-39.9, ADULT 06/02/2019 STEFFI TONY MD Ot Z79. 01 FDC (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 OF ANTICOAGULANT 06/02/2019 STEFFI TONY MD Ot Z95.810 PRESENCE OF AUTOMATIC (IMPLANTABLE) CARD 06/03/2019 DONTA, THIAGO E GEAR HOBBER SET UP OPERATOR Ot D86.0 SARCOIDOSIS OF LUNG 06/03/2019 DONTA, THIAGO E GEAR HOBBER SET UP OPERATOR Ot G47.33 OBSTRUCTIVE SLEEP APNEA (ADULT) (PEDIATR 06/03/2019 DONTA, THIAGO E GEAR HOBBER SET UP OPERATOR Ot G47.50 PARASOMNIA, UNSPECIFIED 06/03/2019 DONTA, THIAGO E GEAR HOBBER SET UP OPERATOR Ot J45.909 UNSPECIFIED ASTHMA, UNCOMPLICATED 06/03/2019 DONTA, THIAGO E GEAR HOBBER SET UP OPERATOR Ot M79.89 OTHER SPECIFIED SOFT TISSUE DISORDERS 06/03/2019 DONTA, THIAGO E GEAR HOBBER SET UP OPERATOR Ot R09.02 HYPOXEMIA 06/03/2019 DONTA, THIAGO E GEAR HOBBER SET UP OPERATOR Ot R91.8 OTHER NONSPECIFIC ABNORMAL FINDING OF 06/03/2019 DONTA, THIAGO E GEAR HOBBER SET UP OPERATOR Ot D86.0 SARCOIDOSIS OF LUNG 06/03/2019 DONTA, THIAGO E GEAR HOBBER SET UP OPERATOR Ot G47.33 OBSTRUCTIVE SLEEP APNEA (ADULT) (PEDIATR 06/03/2019 DONTA, THIAGO E GEAR HOBBER SET UP OPERATOR Ot G47.50 PARASOMNIA, UNSPECIFIED 06/03/2019 DONTA, THIAGO E GEAR HOBBER SET UP OPERATOR Ot J45.909 UNSPECIFIED ASTHMA, UNCOMPLICATED 06/03/2019 DONTA, THIAGO E GEAR HOBBER SET UP OPERATOR Ot M79.89 OTHER SPECIFIED SOFT TISSUE DISORDERS 06/03/2019 DONTA, THIAGO E GEAR HOBBER SET UP OPERATOR Ot R09.02 HYPOXEMIA 06/03/2019 DONTA, THIAGO E GEAR HOBBER SET UP OPERATOR Ot R91.8 OTHER NONSPECIFIC ABNORMAL FINDING OF 06/14/2019 XIN MASTERSON MD Ot D64. 9 ANEMIA, UNSPECIFIED 06/14/2019 XIN MASTERSON MD Ot E66. 01 MORBID (SEVERE) OBESITY DUE TO EXCESS CA 06/14/2019 XIN MASTERSON MD Ot E78. 00 PURE HYPERCHOLESTEROLEMIA, UNSPECIFIED 06/14/2019 XIN MASTERSON MD Ot G47. 33 OBSTRUCTIVE SLEEP APNEA (ADULT) (PEDIATR 06/14/2019 XIN MASTERSON MD Ot I13. 0 HYP HRT CHR [place] DIS W HRT FAIL AND ST 06/14/2019 XIN MASTERSON MD, Ot I21. 4 NON-ST ELEVATION (NSTEMI) MYOCARDIAL INF 06/14/2019 XIN MASTERSON MD, Ot I27. 20 PULMONARY HYPERTENSION, UNSPECIFIED 06/14/2019 XIN MASTERSON MD Ot I34. 0 NONRHEUMATIC MITRAL (VALVE) INSUFFICIENC 06/14/2019 XIN MASTERSON MD, Ot I42. 8 OTHER CARDIOMYOPATHIES 06/14/2019 XIN MASTERSON MD, Ot I44. 7 LEFT BUNDLE-BRANCH BLOCK, UNSPECIFIED 06/14/2019 XIN MASTERSON MD, Ot I48. 0 PAROXYSMAL ATRIAL FIBRILLATION 06/14/2019 XIN MASTERSON MD, Ot I48. 20 CHRONIC ATRIAL FIBRILLATION, UNSPECIFIED 06/14/2019 XIN MASTERSON MD, Ot I50. 33 ACUTE ON CHRONIC DIASTOLIC (CONGESTIVE) 06/14/2019 XIN MASTERSON MD, Ot J44. 1 CHRONIC OBSTRUCTIVE PULMONARY DISEASE W 06/14/2019 XIN MASTERSON MD, Ot J96. 21 ACUTE AND CHRONIC RESPIRATORY FAILURE [place] 06/14/2019 XIN MASTERSON MD, Ot N17. 9 ACUTE KIDNEY FAILURE, UNSPECIFIED 06/14/2019 XIN MASTERSON MD, Ot N18. 4 CHRONIC KIDNEY DISEASE, STAGE 4 (SEVERE) 06/14/2019 XIN MASTERSON MD Ot Z68. 38 BODY MASS INDEX (BMI) 38.0-38.9, ADULT 06/14/2019 XIN MASTERSON MD Ot Z79.899 OTHER PAVER INSTALLER (CURRENT) DRUG THERAPY 06/14/2019 XIN MASTERSON MD Ot Z90.710 ACQUIRED ABSENCE OF BOTH CERVIX AND UTER 06/14/2019 XIN MASTERSON MD Ot Z90. 89 ACQUIRED ABSENCE OF OTHER ORGANS 06/14/2019 XIN MASTERSON MD Ot Z91. 14 PATIENT'S OTHER NONCOMPLIANCE WITH MEDIC 06/14/2019 XIN MASTERSON MD Ot Z95.810 PRESENCE OF AUTOMATIC (IMPLANTABLE) CARD 06/14/2019 XIN MASTERSON MD Ot Z99. 89 DEPENDENCE ON OTHER ENABLING MACHINES AN 06/14/2019 XIN MASTERSON MD, Ot D64. 9 ANEMIA, UNSPECIFIED 06/14/2019 XIN MASTERSON MD Ot E66. 01 MORBID (SEVERE) OBESITY DUE TO EXCESS CA 06/14/2019 XIN MASTERSON MD Ot E78. 00 PURE HYPERCHOLESTEROLEMIA, UNSPECIFIED 06/14/2019 XIN MASTERSON MD, Ot G47. 33 OBSTRUCTIVE SLEEP APNEA (ADULT) (PEDIATR 06/14/2019 XIN MASTERSON MD, Ot I13. 0 HYP HRT CHR [place] DIS W HRT FAIL AND ST 06/14/2019 XIN MASTERSON MD, Ot I21. 4 NON-ST ELEVATION (NSTEMI) MYOCARDIAL INF 06/14/2019 XIN MASTERSON MD, Ot I27. 20 PULMONARY HYPERTENSION, UNSPECIFIED 06/14/2019 XIN MASTERSON MD, Ot I34. 0 NONRHEUMATIC MITRAL (VALVE) INSUFFICIENC 06/14/2019 XIN MASTERSON MD, Ot I42. 8 OTHER CARDIOMYOPATHIES 06/14/2019 XIN MASTERSON MD, Ot I44. 7 LEFT BUNDLE-BRANCH BLOCK, UNSPECIFIED 06/14/2019 XIN MASTERSON MD, Ot I48. 0 PAROXYSMAL ATRIAL FIBRILLATION 06/14/2019 XIN MASTERSON MD, Ot I48. 20 CHRONIC ATRIAL FIBRILLATION, UNSPECIFIED 06/14/2019 XIN MASTERSON MD, Ot I50. 33 ACUTE ON CHRONIC DIASTOLIC (CONGESTIVE) 06/14/2019 XIN MASTERSON MD, Ot J44. 1 CHRONIC OBSTRUCTIVE PULMONARY DISEASE W 06/14/2019 XIN MASTERSON MD, Ot J96. 21 ACUTE AND CHRONIC RESPIRATORY FAILURE WI 06/14/2019 XIN MASTERSON MD, Ot N17. 9 ACUTE KIDNEY FAILURE, UNSPECIFIED 06/14/2019 XIN MASTERSON MD, Ot N18. 4 CHRONIC KIDNEY DISEASE, STAGE 4 (SEVERE) 06/14/2019 XIN MASTERSON MD, Ot Z68. 38 BODY MASS INDEX (BMI) 38.0-38.9, ADULT 06/14/2019 XIN MASTERSON MD, Ot Z79.899 OTHER FDC (CURRENT) DRUG THERAPY 06/14/2019 XIN MASTERSON MD, Ot Z90.710 ACQUIRED ABSENCE OF BOTH CERVIX AND UTER 06/14/2019 XIN MASTERSON MD, Ot Z90. 89 ACQUIRED ABSENCE OF OTHER ORGANS 06/14/2019 XIN MASTERSON MD, Ot Z91. 14 PATIENT'S OTHER NONCOMPLIANCE WITH MEDIC 06/14/2019 XIN MASTERSON MD, Ot Z95.810 PRESENCE OF AUTOMATIC (IMPLANTABLE) CARD 06/14/2019 XIN MASTERSON MD, Ot Z99. 89 DEPENDENCE ON OTHER ENABLING MACHINES AN 06/16/2019 STEFFI TONY MD, Ot D63. 1 ANEMIA IN CHRONIC KIDNEY DISEASE 06/16/2019 STEFFI TONY MD, Ot D86. 0 SARCOIDOSIS OF LUNG 06/16/2019 STEFFI TONY MD, Ot E66. 2 MORBID (SEVERE) OBESITY WITH ALVEOLAR HY 06/16/2019 STEFFI TONY MD, Ot E87. 2 ACIDOSIS 06/16/2019 STEFFI TONY MD, Ot I08. 1 RHEUMATIC DISORDERS OF BOTH MITRAL AND T 06/16/2019 STEFFI TONY MD, Ot I13. 0 HYP HRT CHR [place] DIS W HRT FAIL AND ST 06/16/2019 STEFFI TONY MD, Ot I27. 20 PULMONARY HYPERTENSION, UNSPECIFIED 06/16/2019 STEFFI TONY MD, Ot I42. 8 OTHER CARDIOMYOPATHIES 06/16/2019 STEFFI TONY MD, Ot I44. 7 LEFT BUNDLE-BRANCH BLOCK, UNSPECIFIED 06/16/2019 STEFFI TONY MD, Ot I48. 0 PAROXYSMAL ATRIAL FIBRILLATION 06/16/2019 STEFFI TONY MD, Ot I50. 43 ACUTE ON CHRONIC COMBINED SYSTOLIC AND D 06/16/2019 STEFFI TONY MD, Ot J18. 9 PNEUMONIA, UNSPECIFIED ORGANISM 06/16/2019 STEFFI TONY MD, Ot J30. 2 OTHER SEASONAL ALLERGIC RHINITIS 06/16/2019 STEFFI TONY MD, Ot J44. 0 CHR OBSTRUCTIVE PULMON DISEASE WITH (ACU 06/16/2019 STEFFI TONY MD, Ot J96. 21 ACUTE AND CHRONIC RESPIRATORY FAILURE WI 06/16/2019 STEFFI TONY MD, Ot N18. 4 CHRONIC KIDNEY DISEASE, STAGE 4 (SEVERE) 06/16/2019 STEFFI TONY MD, Ot N28. 9 DISORDER OF KIDNEY AND URETER, UNSPECIFI 06/16/2019 SETFFI TONY MD, Ot R04. 0 EPISTAXIS 06/16/2019 STEFFI TONY MD, Ot R04. 2 HEMOPTYSIS 06/16/2019 STEFFI TONY MD, Ot R79. 89 OTHER SPECIFIED ABNORMAL FINDINGS OF BLO 06/16/2019 STEFFI TONY MD, Ot Z68. 39 BODY MASS INDEX (BMI) 39.0-39.9, ADULT 06/16/2019 STEFFI TONY MD, Ot Z79. 01 PAVER INSTALLER (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 OF ANTICOAGULANT 06/16/2019 STEFFI TONY MD, Ot Z95.810 PRESENCE OF AUTOMATIC (IMPLANTABLE) CARD 06/16/2019 STEFFI TONY MD, Ot D63. 1 ANEMIA IN CHRONIC KIDNEY DISEASE 06/16/2019 STEFFI TONY MD, Ot D86. 0 SARCOIDOSIS OF LUNG 06/16/2019 STEFFI TONY MD, Ot E66. 2 MORBID (SEVERE) OBESITY WITH ALVEOLAR HY 06/16/2019 STEFFI TONY MD, Ot E87. 2 ACIDOSIS 06/16/2019 STEFFI TONY MD, Ot I08. 1 RHEUMATIC DISORDERS OF BOTH MITRAL AND T 06/16/2019 STEFFI TONY MD, Ot I13. 0 HYP HRT CHR [place] DIS W HRT FAIL AND ST 06/16/2019 STEFFI TONY MD, Ot I27. 20 PULMONARY HYPERTENSION, UNSPECIFIED 06/16/2019 STEFFI TONY MD, Ot I42. 8 OTHER CARDIOMYOPATHIES 06/16/2019 STEFFI TONY MD, Ot I44. 7 LEFT BUNDLE-BRANCH BLOCK, UNSPECIFIED 06/16/2019 STEFFI TONY MD, Ot I48. 0 PAROXYSMAL ATRIAL FIBRILLATION 06/16/2019 STEFFI TONY MD, Ot I50. 43 ACUTE ON CHRONIC COMBINED SYSTOLIC AND D 06/16/2019 STEFFI TONY MD, Ot J18. 9 PNEUMONIA, UNSPECIFIED ORGANISM 06/16/2019 STEFFI TONY MD, Ot J30. 2 OTHER SEASONAL ALLERGIC RHINITIS 06/16/2019 STEFFI TONY MD, Ot J44. 0 CHR OBSTRUCTIVE PULMON DISEASE WITH (ACU 06/16/2019 STEFFI TONY MD Ot J96. 21 ACUTE AND CHRONIC RESPIRATORY FAILURE WI 06/16/2019 STEFFI TONY MD, Ot N18. 4 CHRONIC KIDNEY DISEASE, STAGE 4 (SEVERE) 06/16/2019 STEFFI TONY MD, Ot N28. 9 DISORDER OF KIDNEY AND URETER, UNSPECIFI 06/16/2019 STEFFI TONY MD Ot R04. 0 EPISTAXIS 06/16/2019 STEFFI TONY MD Ot R04. 2 HEMOPTYSIS 06/16/2019 STEFFI TONY MD, Ot R79. 89 OTHER SPECIFIED ABNORMAL FINDINGS OF BLO 06/16/2019 STEFFI TONY MD, Ot Z68. 39 BODY MASS INDEX (BMI) 39.0-39.9, ADULT 06/16/2019 STEFFI TONY MD, Ot Z79. 01 PAVER INSTALLER (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 OF ANTICOAGULANT 06/16/2019 STEFFI TONY MD, Ot Z95.810 PRESENCE OF AUTOMATIC (IMPLANTABLE) CARD 06/16/2019 STEFFI TONY MD, Ot D63. 1 ANEMIA IN CHRONIC KIDNEY DISEASE 06/16/2019 STEFFI TONY MD, Ot D86. 0 SARCOIDOSIS OF LUNG 06/16/2019 STEFFI TONY MD, Ot E66. 2 MORBID (SEVERE) OBESITY WITH ALVEOLAR HY 06/16/2019 STEFFI TONY MD Ot E87. 2 ACIDOSIS 06/16/2019 STEFFI TONY MD, Ot I08. 1 RHEUMATIC DISORDERS OF BOTH MITRAL AND T 06/16/2019 STEFFI TONY MD Ot I13. 0 HYP HRT CHR [place] DIS W HRT FAIL AND ST 06/16/2019 STEFFI TONY MD, Ot I27. 20 PULMONARY HYPERTENSION, UNSPECIFIED 06/16/2019 STEFFI TONY MD Ot I42. 8 OTHER CARDIOMYOPATHIES 06/16/2019 STEFFI TONY MD, Ot I44. 7 LEFT BUNDLE-BRANCH BLOCK, UNSPECIFIED 06/16/2019 STEFFI TONY MD Ot I48. 0 PAROXYSMAL ATRIAL FIBRILLATION 06/16/2019 STEFFI TONY MD Ot I50. 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 9 PNEUMONIA, UNSPECIFIED ORGANISM 06/16/2019 STEFFI TONY MD Ot J30. 2 OTHER SEASONAL ALLERGIC RHINITIS 06/16/2019 STEFFI TONY MD Ot J44. 0 CHR OBSTRUCTIVE PULMON DISEASE WITH (ACU 06/16/2019 STEFFI TONY MD Ot J96. 21 ACUTE AND CHRONIC RESPIRATORY FAILURE [place] 06/16/2019 STEFFI TONY MD Ot N18. 4 CHRONIC KIDNEY DISEASE, STAGE 4 (SEVERE) 06/16/2019 STEFFI TONY MD Ot N28. 9 DISORDER OF KIDNEY AND URETER, UNSPECIFI 06/16/2019 STEFFI TONY MD Ot R04. 0 EPISTAXIS 06/16/2019 STEFFI TONY MD, Ot R04. 2 HEMOPTYSIS 06/16/2019 STEFFI TONY MD, Ot R79. 89 OTHER SPECIFIED ABNORMAL FINDINGS OF BLO 06/16/2019 STEFFI TONY MD Ot Z68. 39 BODY MASS INDEX (BMI) 39.0-39.9, ADULT 06/16/2019 STEFFI TONY MD, Ot Z79. 01 [facility] (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 OF ANTICOAGULANT 06/16/2019 STEFFI TONY MD, Ot Z95.810 PRESENCE OF AUTOMATIC (IMPLANTABLE) CARD 06/16/2019 STEFFI TONY MD, Ot D63. 1 ANEMIA IN CHRONIC KIDNEY DISEASE 06/16/2019 STEFFI TONY MD, Ot D86. 0 SARCOIDOSIS OF LUNG 06/16/2019 STEFFI TONY MD, Ot E66. 2 MORBID (SEVERE) OBESITY WITH ALVEOLAR HY 06/16/2019 STEFFI TONY MD Ot E87. 2 ACIDOSIS 06/16/2019 STEFFI TONY MD, Ot I08. 1 RHEUMATIC DISORDERS OF BOTH MITRAL AND T 06/16/2019 STEFFI TONY MD Ot I13. 0 HYP HRT CHR [place] DIS W HRT FAIL AND ST 06/16/2019 STEFFI TONY MD, Ot I27. 20 PULMONARY HYPERTENSION, UNSPECIFIED 06/16/2019 STEFFI TONY MD Ot I42. 8 OTHER CARDIOMYOPATHIES 06/16/2019 STEFFI TONY MD Ot I44. 7 LEFT BUNDLE-BRANCH BLOCK, UNSPECIFIED 06/16/2019 STEFFI TONY MD Ot I48. 0 PAROXYSMAL ATRIAL FIBRILLATION 06/16/2019 STEFFI TONY MD Ot I50. 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 9 PNEUMONIA, UNSPECIFIED ORGANISM 06/16/2019 STEFFI TONY MD Ot J30. 2 OTHER SEASONAL ALLERGIC RHINITIS 06/16/2019 STEFFI TONY MD, Ot J44. 0 CHR OBSTRUCTIVE PULMON DISEASE WITH (ACU 06/16/2019 STEFFI TONY MD Ot J96. 21 ACUTE AND CHRONIC RESPIRATORY FAILURE [place] 06/16/2019 STEFFI TONY MD Ot N18. 4 CHRONIC KIDNEY DISEASE, STAGE 4 (SEVERE) 06/16/2019 STEFFI TONY MD, Ot N28. 9 DISORDER OF KIDNEY AND URETER, UNSPECIFI 06/16/2019 STEFFI TONY MD, Ot R04. 0 EPISTAXIS 06/16/2019 STEFFI TONY MD, Ot R04. 2 HEMOPTYSIS 06/16/2019 STEFFI TONY MD, Ot R79. 89 OTHER SPECIFIED ABNORMAL FINDINGS OF BLO 06/16/2019 STEFFI TONY MD, Ot Z68. 39 BODY MASS INDEX (BMI) 39.0-39.9, ADULT 06/16/2019 STEFFI TONY MD, Ot Z79. 01 [facility] (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 OF ANTICOAGULANT 06/16/2019 STEFFI TONY MD, Ot Z95.810 PRESENCE OF AUTOMATIC (IMPLANTABLE) CARD 06/16/2019 STEFFI TONY MD, Ot D63. 1 ANEMIA IN CHRONIC KIDNEY DISEASE 06/16/2019 STEFFI TONY MD Ot D86. 0 SARCOIDOSIS OF LUNG 06/16/2019 STEFFI TONY MD, Ot E66. 2 MORBID (SEVERE) OBESITY WITH ALVEOLAR HY 06/16/2019 STEFFI TONY MD Ot E87. 2 ACIDOSIS 06/16/2019 STEFFI TONY MD Ot I08. 1 RHEUMATIC DISORDERS OF BOTH MITRAL AND T 06/16/2019 STEFFI TONY MD, Ot I13. 0 HYP HRT CHR [place] DIS W HRT FAIL AND ST 06/16/2019 STEFFI TONY MD Ot I27. 20 PULMONARY HYPERTENSION, UNSPECIFIED 06/16/2019 STEFFI TONY MD Ot I42. 8 OTHER CARDIOMYOPATHIES 06/16/2019 STEFFI TONY MD Ot I44. 7 LEFT BUNDLE-BRANCH BLOCK, UNSPECIFIED 06/16/2019 STEFFI TONY MD Ot I48. 0 PAROXYSMAL ATRIAL FIBRILLATION 06/16/2019 STEFFI TONY MD Ot I50. 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 9 PNEUMONIA, UNSPECIFIED ORGANISM 06/16/2019 TSEFFI TONY MD, Ot J30. 2 OTHER SEASONAL ALLERGIC RHINITIS 06/16/2019 STEFFI TONY MD Ot J44. 0 CHR OBSTRUCTIVE PULMON DISEASE WITH (ACU 06/16/2019 STEFFI TONY MD Ot J96. 21 ACUTE AND CHRONIC RESPIRATORY FAILURE [place] 06/16/2019 STEFFI TONY MD, Ot N18. 4 CHRONIC KIDNEY DISEASE, STAGE 4 (SEVERE) 06/16/2019 STEFFI TONY MD, Ot N28. 9 DISORDER OF KIDNEY AND URETER, UNSPECIFI 06/16/2019 STEFFI TONY MD Ot R04. 0 EPISTAXIS 06/16/2019 STEFFI TONY MD, Ot R04. 2 HEMOPTYSIS 06/16/2019 STEFFI TONY MD Ot R79. 89 OTHER SPECIFIED ABNORMAL FINDINGS OF BLO 06/16/2019 STEFFI TONY MD, Ot Z68. 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 9 ANEMIA, UNSPECIFIED 06/30/2019 XIN MASTERSON MD, Ot E66. 01 MORBID (SEVERE) OBESITY DUE TO EXCESS CA 06/30/2019 XIN MASTERSON MD, Ot E78. 00 PURE HYPERCHOLESTEROLEMIA, UNSPECIFIED 06/30/2019 XIN MASTERSON MD, Ot G47. 33 OBSTRUCTIVE SLEEP APNEA (ADULT) (PEDIATR 06/30/2019 XIN MASTERSON MD, Ot I13. 0 HYP HRT CHR [place] DIS W HRT FAIL AND ST 06/30/2019 XIN MASTERSON MD, Ot I21. 4 NON-ST ELEVATION (NSTEMI) MYOCARDIAL INF 06/30/2019 XIN MASTERSON MD, Ot I27. 20 PULMONARY HYPERTENSION, UNSPECIFIED 06/30/2019 XIN MASTERSON MD Ot I34. 0 NONRHEUMATIC MITRAL (VALVE) INSUFFICIENC 06/30/2019 XIN MASTERSON MD, Ot I42. 8 OTHER CARDIOMYOPATHIES 06/30/2019 XIN MASTERSON MD, Ot I44. 7 LEFT BUNDLE-BRANCH BLOCK, UNSPECIFIED 06/30/2019 XIN MASTERSON MD, Ot I48. 0 PAROXYSMAL ATRIAL FIBRILLATION 06/30/2019 XIN MASTERSON MD, Ot I48. 20 CHRONIC ATRIAL FIBRILLATION, UNSPECIFIED 06/30/2019 XIN MASTERSON MD, Ot I50. 33 ACUTE ON CHRONIC DIASTOLIC (CONGESTIVE) 06/30/2019 XIN MASTERSON MD, Ot J44. 1 CHRONIC OBSTRUCTIVE PULMONARY DISEASE W 06/30/2019 XIN MASTERSON MD, Ot J96. 21 ACUTE AND CHRONIC RESPIRATORY FAILURE WI 06/30/2019 XIN MASTERSON MD, Ot N17. 9 ACUTE KIDNEY FAILURE, UNSPECIFIED 06/30/2019 XIN MASTERSON MD, Ot N18. 4 CHRONIC KIDNEY DISEASE, STAGE 4 (SEVERE) 06/30/2019 XIN MASTERSON MD, Ot Z68. 38 BODY MASS INDEX (BMI) 38.0-38.9, ADULT 06/30/2019 XIN MASTERSON MD, Ot Z79.899 OTHER [facility] (CURRENT) DRUG THERAPY 06/30/2019 XIN MASTERSON MD, Ot Z90.710 ACQUIRED ABSENCE OF BOTH CERVIX AND UTER 06/30/2019 XIN MASTERSON MD, Ot Z90. 89 ACQUIRED ABSENCE OF OTHER ORGANS 06/30/2019 XIN MASTERSON MD, Ot Z91. 14 PATIENT'S OTHER NONCOMPLIANCE WITH MEDIC 06/30/2019 XIN MASTERSON MD, Ot Z95.810 PRESENCE OF AUTOMATIC (IMPLANTABLE) CARD 06/30/2019 XIN MASTERSON MD, Ot Z99. 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 9 ANEMIA, UNSPECIFIED 06/30/2019 XIN MASTERSON MD, Ot E66. 01 MORBID (SEVERE) OBESITY DUE TO EXCESS CA 06/30/2019 XIN MASTERSON MD, Ot E78. 00 PURE HYPERCHOLESTEROLEMIA, UNSPECIFIED 06/30/2019 XIN MASTERSON MD, Ot G47. 33 OBSTRUCTIVE SLEEP APNEA (ADULT) (PEDIATR 06/30/2019 XIN MASTERSON MD, Ot I13. 0 HYP HRT CHR [facility] DIS W HRT FAIL AND ST 06/30/2019 XIN MASTERSON MD, Ot I21. 4 NON-ST ELEVATION (NSTEMI) MYOCARDIAL INF 06/30/2019 XIN MASTERSON MD, Ot I27. 20 PULMONARY HYPERTENSION, UNSPECIFIED 06/30/2019 XIN MASTERSON MD, Ot I34. 0 NONRHEUMATIC MITRAL (VALVE) INSUFFICIENC 06/30/2019 XIN MASTERSON MD, Ot I42. 8 OTHER CARDIOMYOPATHIES 06/30/2019 XIN MASTERSON MD, Ot I44. 7 LEFT BUNDLE-BRANCH BLOCK, UNSPECIFIED 06/30/2019 XIN MASTERSON MD, Ot I48. 0 PAROXYSMAL ATRIAL FIBRILLATION 06/30/2019 XIN MASTERSON MD, Ot I48. 20 CHRONIC ATRIAL FIBRILLATION, UNSPECIFIED 06/30/2019 XIN MASTERSON MD, Ot I50. 33 ACUTE ON CHRONIC DIASTOLIC (CONGESTIVE) 06/30/2019 XIN MASTERSON MD, Ot J44. 1 CHRONIC OBSTRUCTIVE PULMONARY DISEASE W 06/30/2019 XIN MASTERSON MD, Ot J96. 21 ACUTE AND CHRONIC RESPIRATORY FAILURE WI 06/30/2019 XIN MASTERSON MD, Ot N17. 9 ACUTE KIDNEY FAILURE, UNSPECIFIED 06/30/2019 XIN MASTERSON MD, Ot N18. 4 CHRONIC KIDNEY DISEASE, STAGE 4 (SEVERE) 06/30/2019 XIN MASTERSON MD, Ot Z68. 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 89 ACQUIRED ABSENCE OF OTHER ORGANS 06/30/2019 XIN MASTERSON MD, Ot Z91. 14 PATIENT'S OTHER NONCOMPLIANCE WITH MEDIC 06/30/2019 XIN MASTERSON MD Ot Z95.810 PRESENCE OF AUTOMATIC (IMPLANTABLE) CARD 06/30/2019 XIN MASTERSON MD, Ot Z99. 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 9 CHRONIC OBSTRUCTIVE PULMONARY DISEASE, U 10/06/2019 STEFFI TONY MD, Ot D63. 1 ANEMIA IN CHRONIC KIDNEY DISEASE 10/06/2019 STEFFI TONY MD Ot D86. 0 SARCOIDOSIS OF LUNG 10/06/2019 CHAVO MD, STEFFI M Ot E66. 2 MORBID (SEVERE) OBESITY WITH ALVEOLAR HY 10/06/2019 STEFFI TONY MD Ot E78. 00 PURE HYPERCHOLESTEROLEMIA, UNSPECIFIED 10/06/2019 STEFFI TONY MD Ot I08. 1 RHEUMATIC DISORDERS OF BOTH MITRAL AND T 10/06/2019 STEFFI TONY MD Ot I12. 9 HYPERTENSIVE CHRONIC KIDNEY DISEASE W ST 10/06/2019 STEFFI TONY MD Ot I27. 20 PULMONARY HYPERTENSION, UNSPECIFIED 10/06/2019 STEFFI TONY MD Ot I42. 8 OTHER CARDIOMYOPATHIES 10/06/2019 STEFFI TONY MD Ot I44. 7 LEFT BUNDLE-BRANCH BLOCK, UNSPECIFIED 10/06/2019 STEFFI TONY MD Ot I48. 91 UNSPECIFIED ATRIAL FIBRILLATION 10/06/2019 STEFFI TONY MD Ot I48. 92 UNSPECIFIED ATRIAL FLUTTER 10/06/2019 STEFFI TONY MD Ot I50. 43 ACUTE ON CHRONIC COMBINED SYSTOLIC AND D 10/06/2019 STEFFI TONY MD Ot J30. 2 OTHER SEASONAL ALLERGIC RHINITIS 10/06/2019 STEFFI TONY MD Ot J44. 9 CHRONIC OBSTRUCTIVE PULMONARY DISEASE, U 10/06/2019 STEFFI TONY MD Ot N18. 4 CHRONIC KIDNEY DISEASE, STAGE 4 (SEVERE) 10/06/2019 STEFFI TONY MD Ot Z68. 38 BODY MASS INDEX (BMI) 38.0-38.9, ADULT 10/06/2019 STEFFI TONY MD Ot Z87. 01 PERSONAL HISTORY OF PNEUMONIA (RECURRENT 10/06/2019 STEFFI TONY MD Ot Z87.891 PERSONAL HISTORY OF NICOTINE DEPENDENCE 10/06/2019 STEFFI TONY MD Ot Z91. 19 PATIENT'S NONCOMPLIANCE W [facility] 10/06/2019 STEFFI TONY MD Ot Z95.810 PRESENCE OF AUTOMATIC (IMPLANTABLE) CARD 10/06/2019 STEFFI TONY MD Ot D63. 1 ANEMIA IN CHRONIC KIDNEY DISEASE 10/06/2019 STEFFI TONY MD Ot D86. 0 SARCOIDOSIS OF LUNG 10/06/2019 STEFFI TONY MD Ot E66. 2 MORBID (SEVERE) OBESITY WITH ALVEOLAR HY 10/06/2019 STEFFI TONY MD Ot E78. 00 PURE HYPERCHOLESTEROLEMIA, UNSPECIFIED 10/06/2019 STEFFI TONY MD Ot I08. 1 RHEUMATIC DISORDERS OF BOTH MITRAL AND T 10/06/2019 STEFFI TONY MD Ot I12. 9 HYPERTENSIVE CHRONIC KIDNEY DISEASE W ST 10/06/2019 STEFFI TONY MD Ot I13. 0 HYP HRT CHR [facility] DIS W HRT FAIL AND ST 10/06/2019 STEFFI TONY MD, Ot I27. 20 PULMONARY HYPERTENSION, UNSPECIFIED 10/06/2019 STEFFI TONY MD Ot I42. 8 OTHER CARDIOMYOPATHIES 10/06/2019 STEFFI TONY MD Ot I44. 7 LEFT BUNDLE-BRANCH BLOCK, UNSPECIFIED 10/06/2019 STEFFI TONY MD Ot I48. 91 UNSPECIFIED ATRIAL FIBRILLATION 10/06/2019 STEFFI TONY MD Ot I48. 92 UNSPECIFIED ATRIAL FLUTTER 10/06/2019 STEFFI TONY MD Ot I50. 43 ACUTE ON CHRONIC COMBINED SYSTOLIC AND D 10/06/2019 STEFFI TONY MD Ot J30. 2 OTHER SEASONAL ALLERGIC RHINITIS 10/06/2019 STEFFI TONY MD, Ot J44. 9 CHRONIC OBSTRUCTIVE PULMONARY DISEASE, U 10/06/2019 STEFFI TONY MD Ot N18. 4 CHRONIC KIDNEY DISEASE, STAGE 4 (SEVERE) 10/06/2019 STEFFI TONY MD Ot N28. 9 DISORDER OF KIDNEY AND URETER, UNSPECIFI 10/06/2019 STEFFI TONY MD Ot Z68. 38 BODY MASS INDEX (BMI) 38.0-38.9, ADULT 10/06/2019 STEFFI TONY MD Ot Z87. 01 PERSONAL HISTORY OF PNEUMONIA (RECURRENT 10/06/2019 STEFFI TONY MD Ot Z87.891 PERSONAL HISTORY OF NICOTINE DEPENDENCE 10/06/2019 STEFFI TONY MD Ot Z91. 19 PATIENT'S NONCOMPLIANCE W [facility] 10/06/2019 STEFFI TONY MD Ot Z95.810 PRESENCE OF AUTOMATIC (IMPLANTABLE) CARD 10/12/2019 XIN MASTERSON MD, Ot J44. 9 CHRONIC OBSTRUCTIVE PULMONARY DISEASE, U 10/13/2019 ANTOINETTE WANG APRN Ot E66.01 MORBID (SEVERE) OBESITY DUE TO EXCESS CA 10/13/2019 ANTOINETTE WANG APRN Ot I13 .0 HYP HRT CHR [facility] DIS W HRT FAIL AND ST 10/13/2019 KATHLEEN, ANTOINETTE Poon APRN Ot I27.20 PULMONARY HYPERTENSION, UNSPECIFIED 10/13/2019 ANTOINETTE WANG APRN Ot I34 .0 NONRHEUMATIC MITRAL (VALVE) INSUFFICIENC 10/13/2019 KATHLEEN, ANTOINETTE Poon APRN Ot I42 .9 CARDIOMYOPATHY, UNSPECIFIED 10/13/2019 ANTOINETTE WANG APRN Ot I50 .9 HEART FAILURE, UNSPECIFIED 10/13/2019 WANG, ANTOINETTE Poon APRN Ot J44 .9 CHRONIC OBSTRUCTIVE PULMONARY DISEASE, U 10/13/2019 WANG, ANTOINETTE Poon APRN Ot N18 .4 CHRONIC KIDNEY DISEASE, STAGE 4 (SEVERE) 10/13/2019 ANTOINETTE WANG APRN Ot R06.02 SHORTNESS OF BREATH 10/13/2019 ANTOINETTE WANG APRN Ot Z68.37 BODY MASS INDEX (BMI) 37.0-37.9, ADULT 10/13/2019 ANTOINETTE WANG APRN Ot Z77.22 CNTCT W AND EXPSR TO ENVIRON TOBACCO SMO 10/13/2019 ANTOINETTE WANG APRN Ot 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 9 CHRONIC OBSTRUCTIVE PULMONARY DISEASE, U 10/15/2019 ANTOINETTE WANG APRN Ot E66.01 MORBID (SEVERE) OBESITY DUE TO EXCESS CA 10/15/2019 KATHLEEN, ANTOINETTE Poon APRN Ot I13 .0 HYP HRT CHR [facility] DIS W HRT FAIL AND ST 10/15/2019 KATHLEEN, ANTOINETTE Poon APRN Ot I27.20 PULMONARY HYPERTENSION, UNSPECIFIED 10/15/2019 ANTOINETTE WANG APRN Ot I34 .0 NONRHEUMATIC MITRAL (VALVE) INSUFFICIENC 10/15/2019 ANTOINETTE WANG APRN Ot I42 .9 CARDIOMYOPATHY, UNSPECIFIED 10/15/2019 ANTOINETTE WANG APRN Ot I50 .9 HEART FAILURE, UNSPECIFIED 10/15/2019 ANTOINETTE WANG APRN Ot J44 .9 CHRONIC OBSTRUCTIVE PULMONARY DISEASE, U 10/15/2019 ANTOINETTE WANG APRN Ot N18 .4 CHRONIC KIDNEY DISEASE, STAGE 4 (SEVERE) 10/15/2019 ANTOINETTE WANG APRN Ot R06.02 SHORTNESS OF BREATH 10/15/2019 ANTOINETTE WANG APRN Ot Z68.37 BODY MASS INDEX (BMI) 37.0-37.9, ADULT 10/15/2019 ANTOINETTE WANG APRN Ot Z77.22 CNTCT W AND EXPSR TO ENVIRON TOBACCO SMO 10/15/2019 ANTOINETTE WANG APRN Ot Z79.01 [facility] (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 OF ANTICOAGULANT 10/15/2019 ANTOINETTE WANG APRN Ot 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 10/15/2019 ANTOINETTE WANG APRN Ot Z90.49 ACQUIRED ABSENCE OF OTHER SPECIFIED PART 10/15/2019 ANTOINETTE WANG APRN Ot Z95.810 PRESENCE OF AUTOMATIC (IMPLANTABLE) CARD 10/15/2019 ANTOINETTE WANG APRN Ot Z99.81 DEPENDENCE ON SUPPLEMENTAL OXYGEN Procedures Code Description Performed By Raymundo serna On [id number] DE ASURE OF CARDIAC SAMPL PRESSURE, L H 04/12/2019 [id number] FL UOROSCOPY OF MULT COR ART USING L OSM 04/12/2019 [id number] FL UOROSCOPY OF LEFT HEART USING LOW OSMO 04/12/2019 Results Test Result Range Complete blood count (CBC) with automate d white blood cell (WBC) differential - 07/29/17 13:05 Blood leukocytes automated count (number/volume) 4.6 10*3/uL 4.3-11.0 Blood erythrocytes automated count (number/volume) 4.37 10*6/uL 4.35-5.85 Venous blood hemoglobin measurement (mass/volume) 11.9 g/dL 11.5-16.0 Blood hematocrit (volume fraction) 37 % 35-52 Automated erythrocyte mean corpuscular volume 84 [ foz_us] 80-99 Automated erythrocyte mean corpuscular h emoglobin (mass per erythrocyte) 27 pg 25-34 Automated erythrocyte mean corpuscular h emoglobin concentration measurement (mass/volume) 33 g/dL 32-36 Automated erythrocyte distribution width ratio 14. 9 % 10.0- 14.5 Automated blood platelet count [...] 10*3 1.0-4.0 Blood monocytes automated count (number/volume) 0. 6 10*3 0.0-1.0 Automated eosinophil count 0.1 10*3/uL 0 .0-0.3 Automated blood basophil count (count/volume) 0.0 10*3/uL 0.0-0.1 Complete urinalysis with reflex to cultu re - 07/29/17 13:05 Urine color determination YELLOW NRG Urine clarity determination CLEAR NR G Urine pH measurement by test strip 6 5-9 Specific gravity of urine by test strip 1.010 1.016-1.022 Urine protein assay by test strip, semi-quantitative NEGATIVE NEGATIVE Urine glucose detection by automated test strip NE GATIVE NEGATIVE Erythrocytes detection in urine sediment by light micr oscopy NEGATIVE NEGATIVE Urine ketones detection by automated test strip NE GATIVE NEGATIVE Urine nitrite detection by test strip NEGATIVE NEGATIVE Urine total bilirubin detection by test strip NEGA TIVE NEGATIVE Urine urobilinogen measurement by automated test strip (mass/volume) NORMAL NORMAL Urine leukocyte esterase detection by dipstick NEG ATIVE NEGATIVE Automated urine sediment erythrocyte cou nt by microscopy (number/high power field) NONE NRG Automated urine sediment leukocyte count by microscopy (number/high power field) NONE NRG Bacteria detection in urine sediment by light microsco py NEGATIVE NRG Squamous epithelial cells detection in u rine sediment by light microscopy 0-2 NRG Crystals detection in urine sediment by light microsco py NONE NRG Casts detection in urine sediment by light microscopy PRESENT NRG Mucus detection in urine sediment by light microscopy NEGATIVE NRG Complete urinalysis with reflex to culture NO NRG Hyaline casts detection in urine sediment by light radha roscopy 2-5 NRG Serum or plasma renal function panel (Na , K, Cl, CO2, BUN, Cr, glucose,Ca, phos, alb) - 07/29/17 13:05 Serum or plasma sodium measurement (moles/volume) 138 mmol/L 135-145 Serum or plasma potassium measurement (moles/volume) 4.7 mmol/L 3.6-5.0 Serum or plasma chloride measurement (moles/volume) 103 mmol/L 98-107 Carbon dioxide 25 mmol/L 21-32 Serum or plasma anion gap determination (moles/volume) 10 mmol/L 5-14 Serum or plasma urea nitrogen measurement (mass/volume ) 31 mg/dL 7-18 Serum or plasma creatinine measurement (mass/volume) 1.77 mg/dL 0.60-1.30 Serum or plasma urea nitrogen/creatinine mass ratio 18 NRG Serum or plasma creatinine measurement w ith calculation of estimated glomerular filtration rate 35 NRG Serum or plasma glucose measurement (mass/volume) 86 mg/dL 70-105 Serum or plasma calcium measurement (mass/volume) 9.6 mg/dL 8.5-10.1 Serum or plasma albumin measurement (mass/volume) 4.0 g/dL 3.2-4.5 Serum or plasma phosphate measurement (mass/volume) 4.1 mg/dL 2.3-4.7 Serum or plasma uric acid measurement (m ass/volume) - 07/29/17 13:05 Serum or plasma uric acid measurement (mass/volume) 7.7 mg/dL 2.6-7.2 Urine protein/creatinine mass ratio - 13:05 Urine protein measurement (mass/volume) < mg/dL 6-12 Urine creatinine measurement (mass/volume) 29 mg/d L 30-125 Urine protein/creatinine mass ratio TNP NRG Serum iron and total iron binding capaci ty panel - 07/29/17 13:05 Serum or plasma iron measurement (mass/volume) 61 % 35-180 Total iron binding capacity and transferrin saturation measurement 13 % 15-50 Iron binding capacity [mass/volume] in serum or plasma 455 % 280-380 UIBC (unsaturated iron binding capacity) 394 % 55-450 Serum or plasma ferritin measurement (mass/volume) 15.0 % 15.0-150.0 Serum or plasma intact pararthyroid horm one measurement (mass/volume) - 07/29/17 13:05 Serum or plasma intact parathyroid hormone measurement (mass/volume) 111.0 pg/mL 10.0-65.0 Bio-intact parathyroid hormone (PTH) measurement with calcium 9.7 % 8.5-10.5 VITAMIN D 25-HYDROXY - 07/29/17 13:05 VITAMIN D 25-HYDROXY (TOTAL) 13 % 3 0-100 Arterial blood gas measurement - 8 15:52 Blood pCO2 40 mm[Hg] 35-45 Blood pO2 61 mm[Hg] 79-93 Arterial blood bicarbonate measurement (moles/volume) 24 mmol/L 23-27 Arterial blood base excess by calculation -0.4 mmo l/L -2.5-2.5 Arterial blood oxygen saturation measurement 88 % 94-100 * Inhaled oxygen flow rate 2L NRG Arterial blood pH measurement with patient temperature correction 7.39 7.37-7.43 Arterial blood carbon dioxide, total measurement (mole s/volume) 25.1 mmol/L 21.0-31.0 Body site LT RAD NRG Assessment of wrist artery patency prior to arterial p uncture YES-POS NRG Setting of ventilation mode NO NR G Measurement of body temperature 98.3 NRG Complete blood count (CBC) with automate d white blood cell (WBC) differential - 12/05/17 13:45 Blood leukocytes automated count (number/volume) 8.2 10*3/uL 4.3-11.0 Blood erythrocytes automated count (number/volume) 4.76 10*6/uL 4.35-5.85 Venous blood hemoglobin measurement (mass/volume) 13.7 g/dL 11.5-16.0 Blood hematocrit (volume fraction) 42 % 35-52 Automated erythrocyte mean corpuscular volume 88 [ foz_us] 80-99 Automated erythrocyte mean corpuscular h emoglobin (mass per erythrocyte) 29 pg 25-34 Automated erythrocyte mean corpuscular h emoglobin concentration measurement (mass/volume) 33 g/dL 32-36 Automated erythrocyte distribution width ratio 16. 4 % 10.0- 14.5 Automated blood platelet count [...] 10*3 1.0-4.0 Blood monocytes automated count (number/volume) 0. 3 10*3 0.0-1.0 Automated eosinophil count 0.0 10*3/uL 0 .0-0.3 Automated blood basophil count (count/volume) 0.0 10*3/uL 0.0-0.1 Blood manual differential performed dete ction - 12/05/17 13:45 Blood monocytes/100 leukocytes 1 [...] 5-14 Serum or plasma urea nitrogen measurement (mass/volume ) 44 mg/dL 7-18 Serum or plasma creatinine measurement (mass/volume) 1.54 mg/dL 0.60-1.30 Serum or plasma urea nitrogen/creatinine mass ratio 29 NRG Serum or plasma creatinine measurement w ith calculation of estimated glomerular filtration rate 41 NRG Serum or plasma glucose measurement (mass/volume) 122 mg/dL 70-105 Serum or plasma calcium measurement (mass/volume) 9.1 mg/dL 8.5-10.1 Serum or plasma total bilirubin measurement (mass/volu me) 2.0 mg/dL 0.1-1.0 Serum or plasma alkaline phosphatase janine surement (enzymatic activity/volume) 287 U/L 40-136 Serum or plasma aspartate aminotransfera se measurement (enzymatic activity/volume) 65 U/L 5-34 Serum or plasma alanine aminotransferase measurement (enzymatic activity/volume) 119 U/L 0-55 Serum or plasma protein measurement (mass/volume) 6.4 g/dL 6.4-8.2 Serum or plasma albumin measurement (mass/volume) 3.7 g/dL 3.2-4.5 Serum or plasma lithium measurement (mol es/volume) - 12/05/17 13:45 BNP level 2508.6 pg/mL <100.0 Serum or plasma troponin i.cardiac measu rement (mass/volume) - 12/05/17 13:45 Serum or plasma troponin i.cardiac measurement (mass/v olume) < ng/mL <0.30 Complete blood count (CBC) with automate d white blood cell (WBC) differential - 12/10/17 12:13 Blood leukocytes automated count (number/volume) 8.8 10*3/uL 4.3-11.0 Blood erythrocytes automated count (number/volume) 4.79 10*6/uL 4.35-5.85 Venous blood hemoglobin measurement (mass/volume) 14.3 g/dL 11.5-16.0 Blood hematocrit (volume fraction) 43 % 35-52 Automated erythrocyte mean corpuscular volume 90 [ foz_us] 80-99 Automated erythrocyte mean corpuscular h emoglobin (mass per erythrocyte) 30 pg 25-34 Automated erythrocyte mean corpuscular h emoglobin concentration measurement (mass/volume) 33 g/dL 32-36 Automated erythrocyte distribution width ratio 16. 9 % 10.0- 14.5 Automated blood platelet count [...] 10*3 1.0-4.0 Blood monocytes automated count (number/volume) 0. 7 10*3 0.0-1.0 Automated eosinophil count 0.0 10*3/uL 0 .0-0.3 Automated blood basophil count (count/volume) 0.0 10*3/uL 0.0-0.1 Comprehensive metabolic panel - 12/10/17 12:13 Serum or plasma sodium measurement (moles/volume) 137 mmol/L 135-145 Serum or plasma potassium measurement (moles/volume) 3.8 mmol/L 3.6-5.0 Serum or plasma chloride measurement (moles/volume) 99 mmol/L 98-107 Carbon dioxide 26 mmol/L 21-32 Serum or plasma anion gap determination (moles/volume) 12 mmol/L 5-14 Serum or plasma urea nitrogen measurement (mass/volume ) 38 mg/dL 7-18 Serum or plasma creatinine measurement (mass/volume) 1.67 mg/dL 0.60-1.30 Serum or plasma urea nitrogen/creatinine mass ratio 23 NRG Serum or plasma creatinine measurement w ith calculation of estimated glomerular filtration rate 37 NRG Serum or plasma glucose measurement (mass/volume) 96 mg/dL 70-105 Serum or plasma calcium measurement (mass/volume) 9.0 mg/dL 8.5-10.1 Serum or plasma total bilirubin measurement (mass/volu me) 2.3 mg/dL 0.1-1.0 Serum or plasma alkaline phosphatase janine surement (enzymatic activity/volume) 392 U/L 40-136 Serum or plasma aspartate aminotransfera se measurement (enzymatic activity/volume) 79 U/L 5-34 Serum or plasma alanine aminotransferase measurement (enzymatic activity/volume) 180 U/L 0-55 Serum or plasma protein measurement (mass/volume) 6.5 g/dL 6.4-8.2 Serum or plasma albumin measurement (mass/volume) 3.6 g/dL 3.2-4.5 Serum or plasma lithium measurement (mol es/volume) - 12/10/17 12:13 BNP level 2468.5 pg/mL <100.0 Serum or plasma troponin i.cardiac measu rement (mass/volume) - 12/10/17 12:13 Serum or plasma troponin i.cardiac measurement (mass/v olume) < ng/mL <0.30 BNP - 12/19/17 11:45 BNP 2490.00 pg/ml 0.00-100.00 BNP - 12/24/17 14:38 BNP 1338.90 pg/ml 0.00-100.00 Other Culture - 01/29/18 17:36 PRELIM CULTURE RESULTS Abundant Gram Negativ e RADHA / ID to Follow MEDIA PLATED Setup at 18:11 on 01/29/2018 [facility] - 01/29/18 17:36 FINAL CULTURE RESULTS Klebsiella pneumoniae ([place] te 1) Ampicillin/Sulbactam <=8/4 Ampicillin <=8 Amoxicillin/K Clavulanate [...] Tobramycin <=4 Automated blood complete blood count (he mogram) panel - 09/22/18 12:58 Blood leukocytes automated count (number/volume) 6.0 10*3/uL 4.3-11.0 Blood erythrocytes automated count (number/volume) 3.92 10*6/uL 4.35-5.85 Venous blood hemoglobin measurement (mass/volume) 11.7 g/dL 11.5-16.0 Blood hematocrit (volume fraction) 36 % 35-52 Automated erythrocyte mean corpuscular volume 93 [ foz_us] 80-99 Automated erythrocyte mean corpuscular h emoglobin (mass per erythrocyte) 30 pg 25-34 Automated erythrocyte mean corpuscular h emoglobin concentration measurement (mass/volume) 32 g/dL 32-36 Automated erythrocyte distribution width ratio 13. 7 % 10.0- 14.5 Automated blood platelet count (count/volume) 161 10*3/uL 130-400 Automated blood platelet mean volume measurement 11.0 [foz_us] 7.4-10.4 PT panel in platelet poor plasma by coag ulation assay - 09/22/18 12:58 Prothrombin time (PT) in platelet poor plasma by coagu lation assay 13.3 s 12.2-14.7 INR in platelet poor plasma or blood by coagulation as say 1.0 0.8-1.4 Activated partial thromboplastin time (a PTT) in platelet poor plasma bycoagulation assay - 09/22/18 12:58 Activated partial thromboplastin time (a PTT) in platelet poor plasma bycoagulation assay 24 s 24-35 Comprehensive metabolic panel - 09/22/18 12:58 Serum or plasma sodium measurement (moles/volume) 141 mmol/L 135-145 Serum or plasma potassium measurement (moles/volume) 4.0 mmol/L 3.6-5.0 Serum or plasma chloride measurement (moles/volume) 107 mmol/L 98-107 Carbon dioxide 25 mmol/L 21-32 Serum or plasma anion gap determination (moles/volume) 9 mmol/L 5-14 Serum or plasma urea nitrogen measurement (mass/volume ) 24 mg/dL 7-18 Serum or plasma creatinine measurement (mass/volume) 1.30 mg/dL 0.60-1.30 Serum or plasma urea nitrogen/creatinine mass ratio 18 NRG Serum or plasma creatinine measurement w ith calculation of estimated glomerular filtration rate 50 NRG Serum or plasma glucose measurement (mass/volume) 100 mg/dL 70-105 Serum or plasma calcium measurement (mass/volume) 9.4 mg/dL 8.5-10.1 Serum or plasma total bilirubin measurement (mass/volu me) 0.7 mg/dL 0.1-1.0 Serum or plasma alkaline phosphatase janine surement (enzymatic activity/volume) 66 U/L 40-136 Serum or plasma aspartate aminotransfera se measurement (enzymatic activity/volume) 18 U/L 5-34 Serum [...] Serum or plasma cholesterol in HDL measurement (mass/v olume) 61 mg/dL 40-60 Cholesterol in LDL [mass/volume] in serum or plasma by direct assay 125 mg/dL 1-129 Serum or plasma cholesterol in VLDL measurement (mass/ volume) 17 mg/dL 5-40 Methicillin resistant Staphylococcus aur eus (MRSA) screening culture - 09/22/18 12:58 Methicillin resistant Staphylococcus aureus (MRSA) scr eening culture NEG NRG Complete blood count (CBC) with automate d white blood cell (WBC) differential - 09/23/18 11:24 Blood leukocytes automated count (number/volume) 8.5 10*3/uL 4.3-11.0 Blood erythrocytes automated count (number/volume) 3.79 10*6/uL 4.35-5.85 Venous blood hemoglobin measurement (mass/volume) 11.4 g/dL 11.5-16.0 Blood hematocrit (volume fraction) 35 % 35-52 Automated erythrocyte mean corpuscular volume 93 [ foz_us] 80-99 Automated erythrocyte mean corpuscular h emoglobin (mass per erythrocyte) 30 pg 25-34 Automated erythrocyte mean corpuscular h emoglobin concentration measurement (mass/volume) 32 g/dL 32-36 Automated erythrocyte distribution width ratio 14. 0 % 10.0- 14.5 Automated blood platelet count [...] 10*3 1.0-4.0 Blood monocytes automated count (number/volume) 0. 7 10*3 0.0-1.0 Automated eosinophil count 0.0 10*3/uL 0 .0-0.3 Automated blood basophil count (count/volume) 0.0 10*3/uL 0.0-0.1 Comprehensive metabolic panel - 09/23/18 11:24 Serum or plasma sodium measurement (moles/volume) 141 mmol/L 135-145 Serum or plasma potassium measurement (moles/volume) 4.4 mmol/L 3.6-5.0 Serum or plasma chloride measurement (moles/volume) 107 mmol/L 98-107 Carbon dioxide 21 mmol/L 21-32 Serum or plasma anion gap determination (moles/volume) 13 mmol/L 5-14 Serum or plasma urea nitrogen measurement (mass/volume ) 21 mg/dL 7-18 Serum or plasma creatinine measurement (mass/volume) 1.27 mg/dL 0.60-1.30 Serum or plasma urea nitrogen/creatinine mass ratio 17 NRG Serum or plasma creatinine measurement w ith calculation of estimated glomerular filtration rate 51 NRG Serum or plasma glucose measurement (mass/volume) 108 mg/dL 70-105 Serum or plasma calcium measurement (mass/volume) 9.8 mg/dL 8.5-10.1 Serum or plasma total bilirubin measurement (mass/volu me) 0.9 mg/dL 0.1-1.0 Serum or plasma alkaline phosphatase janine surement (enzymatic activity/volume) 67 U/L 40-136 Serum or plasma aspartate aminotransfera se measurement (enzymatic activity/volume) 20 U/L 5-34 Serum or plasma alanine aminotransferase measurement (enzymatic activity/volume) 18 U/L 0-55 Serum or plasma protein measurement (mass/volume) 7.7 g/dL 6.4-8.2 Serum or plasma albumin measurement (mass/volume) 4.1 g/dL 3.2-4.5 CALCIUM CORRECTED 9.7 mg/dL 8.5-10.1 Magnesium - 09/23/18 11:24 Magnesium 2.3 mg/dL 1.8-2.4 Serum or plasma troponin i.cardiac measu rement (mass/volume) - 09/23/18 11:24 Serum or plasma troponin i.cardiac measurement (mass/v olume) < ng/mL <0.028 Serum or plasma C reactive protein measu rement (mass/volume) - 09/23/18 11:24 Serum or plasma C reactive protein measurement (mass/v olume) 3.25 mg/dL 0.00-0.50 Blood manual differential performed dete ction - 09/23/18 11:24 Blood monocytes/100 leukocytes 8 % NRG Manual blood segmented neutrophils/100 leukocytes 85 % NRG Manual blood lymphocytes/100 leukocytes 7 % NRG Blood erythrocyte morphology finding identification NORMAL NRG Serum or plasma lithium measurement (mol es/volume) - 09/23/18 11:24 BNP level 1004.0 pg/mL <100.0 Complete blood count (CBC) with automate d white blood cell (WBC) differential - 09/24/18 05:45 Blood leukocytes automated count (number/volume) 5.8 10*3/uL 4.3-11.0 Blood erythrocytes automated count (number/volume) 3.24 10*6/uL 4.35-5.85 Venous blood hemoglobin measurement (mass/volume) 9.7 g/dL 11.5-16.0 Blood hematocrit (volume fraction) 30 % 35-52 Automated erythrocyte mean corpuscular volume 93 [ foz_us] 80-99 Automated erythrocyte mean corpuscular h emoglobin (mass per erythrocyte) 30 pg 25-34 Automated erythrocyte mean corpuscular h emoglobin concentration measurement (mass/volume) 32 g/dL 32-36 Automated erythrocyte distribution width ratio 13. 6 % 10.0- 14.5 Automated blood platelet count [...] 10*3 1.0-4.0 Blood monocytes automated count (number/volume) 0. 7 10*3 0.0-1.0 Automated eosinophil count 0.0 10*3/uL 0 .0-0.3 Automated blood basophil count (count/volume) 0.0 10*3/uL 0.0-0.1 Comprehensive metabolic panel - 09/24/18 05:45 Serum or plasma sodium measurement (moles/volume) 139 mmol/L 135-145 Serum or plasma potassium measurement (moles/volume) 3.6 mmol/L 3.6-5.0 Serum or plasma chloride measurement (moles/volume) 105 mmol/L 98-107 Carbon dioxide 22 mmol/L 21-32 Serum or plasma anion gap determination (moles/volume) 12 mmol/L 5-14 Serum or plasma urea nitrogen measurement (mass/volume ) 23 mg/dL 7-18 Serum or plasma creatinine measurement (mass/volume) 1.38 mg/dL 0.60-1.30 Serum or plasma urea nitrogen/creatinine mass ratio 17 NRG Serum or plasma creatinine measurement w ith calculation of estimated glomerular filtration rate 46 NRG Serum or plasma glucose measurement (mass/volume) 108 mg/dL 70-105 Serum or plasma calcium measurement (mass/volume) 8.8 mg/dL 8.5-10.1 Serum or plasma total bilirubin measurement (mass/volu me) 1.2 mg/dL 0.1-1.0 Serum or plasma alkaline phosphatase janine surement (enzymatic activity/volume) 49 U/L 40-136 Serum or plasma aspartate aminotransfera se measurement (enzymatic activity/volume) 13 U/L 5-34 Serum or plasma alanine aminotransferase measurement (enzymatic activity/volume) 15 U/L 0-55 Serum or plasma protein measurement (mass/volume) 6.3 g/dL 6.4-8.2 Serum or plasma albumin measurement (mass/volume) 3.4 g/dL 3.2-4.5 CALCIUM CORRECTED 9.3 mg/dL 8.5-10.1 Whole blood basic metabolic panel - 09/10 13:25 Serum or plasma sodium measurement (moles/volume) 137 mmol/L 135-145 Serum or plasma potassium measurement (moles/volume) 4.4 mmol/L 3.6-5.0 Serum or plasma chloride measurement (moles/volume) 102 mmol/L 98-107 Carbon dioxide 20 mmol/L 21-32 Serum or plasma anion gap determination (moles/volume) 15 mmol/L 5-14 Serum or plasma urea nitrogen measurement (mass/volume ) 36 mg/dL 7-18 Serum or plasma creatinine measurement (mass/volume) 1.39 mg/dL 0.60-1.30 Serum or plasma urea nitrogen/creatinine mass ratio 26 NRG Serum or plasma creatinine measurement w ith calculation of estimated glomerular filtration rate 46 NRG Serum or plasma glucose measurement (mass/volume) 96 mg/dL 70-105 Serum or plasma calcium measurement (mass/volume) 9.7 mg/dL 8.5-10.1 Arterial blood gas measurement - 9 12:10 Blood pCO2 40 mm[Hg] 35-45 Blood pO2 60 mm[Hg] 79-93 Arterial blood bicarbonate measurement (moles/volume) 25 mmol/L 23-27 Arterial blood base excess by calculation 0.6 mmol /L -2.5-2.5 Arterial blood oxygen saturation measurement 89 % 94-100 * Inhaled oxygen flow rate ROOM AIR NRG Arterial blood pH measurement with patient temperature correction 7.40 7.37-7.43 Arterial blood carbon dioxide, total measurement (mole s/volume) 26.3 mmol/L 21.0-31.0 Body site R RAD NRG Assessment of wrist artery patency prior to arterial p uncture YES-POS NRG Setting of ventilation mode NO NR G Measurement of body temperature 35.8 NRG Complete blood count (CBC) with automate d white blood cell (WBC) differential - 03/14/19 10:15 Blood leukocytes automated count (number/volume) 5.3 10*3/uL 4.3-11.0 Blood erythrocytes automated count (number/volume) 3.60 10*6/uL 4.35-5.85 Venous blood hemoglobin measurement (mass/volume) 10.8 g/dL 11.5-16.0 Blood hematocrit (volume fraction) 33 % 35-52 Automated erythrocyte mean corpuscular volume 92 [ foz_us] 80-99 Automated erythrocyte mean corpuscular h emoglobin (mass per erythrocyte) 30 pg 25-34 Automated erythrocyte mean corpuscular h emoglobin concentration measurement (mass/volume) 33 g/dL 32-36 Automated erythrocyte distribution width ratio 14. 1 % 10.0- 14.5 Automated blood platelet count (count/volume) 231 10*3/uL 130-400 Automated blood platelet mean volume measurement 10.0 [foz_us] 7.4-10.4 Automated blood neutrophils/100 leukocytes 81 % 42-75 Automated blood lymphocytes/100 leukocytes 9 % 12-44 Blood monocytes/100 leukocytes 9 % 0-12 Automated blood eosinophils/100 leukocytes 1 % 0-10 Automated blood basophils/100 leukocytes 0 % 0-10 Blood neutrophils automated count (number/volume) 4.3 10*3 1.8-7.8 Blood lymphocytes automated count (number/volume) 0.5 10*3 1.0-4.0 Blood monocytes automated count (number/volume) 0. 5 10*3 0.0-1.0 Automated eosinophil count 0.1 10*3/uL 0 .0-0.3 Automated blood basophil count (count/volume) 0.0 10*3/uL 0.0-0.1 Fibrin D-dimer FEU measurement in platel et poor plasma (mass/volume) - 03/14/19 10:15 Fibrin D-dimer FEU measurement in platelet poor plasma (mass/volume) 0.49 ug/mL 0.00-0.49 Comprehensive metabolic panel - 03/14/19 10:15 Serum or plasma sodium measurement (moles/volume) 141 mmol/L 135-145 Serum or plasma potassium measurement (moles/volume) 4.1 mmol/L 3.6-5.0 Serum or plasma chloride measurement (moles/volume) 104 mmol/L 98-107 Carbon dioxide 25 mmol/L 21-32 Serum or plasma anion gap determination (moles/volume) 12 mmol/L 5-14 Serum or plasma urea nitrogen measurement (mass/volume ) 31 mg/dL 7-18 Serum or plasma creatinine measurement (mass/volume) 1.59 mg/dL 0.60-1.30 Serum or plasma urea nitrogen/creatinine mass ratio 19 NRG Serum or plasma creatinine measurement w ith calculation of estimated glomerular filtration rate 39 NRG Serum or plasma glucose measurement (mass/volume) 105 mg/dL 70-105 Serum or plasma calcium measurement (mass/volume) 9.6 mg/dL 8.5-10.1 Serum or plasma total bilirubin measurement (mass/volu me) 0.8 mg/dL 0.1-1.0 Serum or plasma alkaline phosphatase janine surement (enzymatic activity/volume) 60 U/L 40-136 Serum or plasma aspartate aminotransfera se measurement (enzymatic activity/volume) 20 U/L 5-34 Serum or plasma alanine aminotransferase measurement (enzymatic activity/volume) 21 U/L 0-55 Serum or plasma protein measurement (mass/volume) 7.3 g/dL 6.4-8.2 Serum or plasma albumin measurement (mass/volume) 3.9 g/dL 3.2-4.5 CALCIUM CORRECTED 9.7 mg/dL 8.5-10.1 Serum or plasma troponin i.cardiac measu rement (mass/volume) - 03/14/19 10:15 Serum or plasma troponin i.cardiac measurement (mass/v olume) 0.041 ng/mL <0.028 Blood lactic acid measurement (moles/vol ume) - 03/14/19 10:15 Blood lactic acid measurement (moles/volume) 1.10 mmol/L 0.50-2.00 Serum or plasma lithium measurement (mol es/volume) - 03/14/19 10:15 BNP PT 1074.8 pg/mL <100.0 PROCALCITONIN (PCT) - 03/14/19 10:15 PROCALCITONIN (PCT) 0.05 ng/mL <0.10 Bacterial blood culture - 03/14/19 10:15 Bacterial blood culture NG NRG Serum angiotensin converting enzyme (ORAL ) measurement - 03/14/19 10:15 Serum angiotensin converting enzyme (ORAL) measurement 17 U/L 9-67 Complete urinalysis with reflex to cultu re - 03/14/19 10:35 Urine color determination YELLOW NRG Urine clarity determination CLEAR NR G Urine pH measurement by test strip 5 5-9 Specific gravity of urine by test strip 1.020 1.016-1.022 Urine protein assay by test strip, semi-quantitative 2+ NEGATIVE Urine glucose detection by automated test strip NE GATIVE NEGATIVE Erythrocytes detection in urine sediment by light micr oscopy 1+ NEGATIVE Urine ketones detection by automated test strip NE GATIVE NEGATIVE Urine nitrite detection by test strip NEGATIVE NEGATIVE Urine total bilirubin detection by test strip NEGA TIVE NEGATIVE Urine urobilinogen measurement by automated test strip (mass/volume) 1 mg/dL NORMAL Urine leukocyte esterase detection by dipstick 2+ NEGATIVE Automated urine sediment erythrocyte cou nt by microscopy (number/high power field) RARE NRG Automated urine sediment leukocyte count by microscopy (number/high power field) [HPF] NRG Bacteria detection in urine sediment by light microsco py NEGATIVE NRG Squamous epithelial cells detection in u rine sediment by light microscopy 10-25 NRG Crystals detection in urine sediment by light microsco py NONE NRG Casts detection in urine sediment by light microscopy NONE NRG Mucus detection in urine sediment by light microscopy NEGATIVE NRG Complete urinalysis with reflex to culture NO NRG Bacterial blood culture - 03/14/19 11:20 Bacterial blood culture NG NRG Serum or plasma troponin i.cardiac measu rement (mass/volume) - 03/14/19 12:35 Serum or plasma troponin i.cardiac measurement (mass/v olume) 0.050 ng/mL <0.028 Serum or plasma troponin i.cardiac measu rement (mass/volume) - 03/14/19 18:25 Serum or plasma troponin i.cardiac measurement (mass/v olume) 0.029 ng/mL <0.028 Serum or plasma troponin i.cardiac measu rement (mass/volume) - 03/15/19 00:25 Serum or plasma troponin i.cardiac measurement (mass/v olume) < ng/mL <0.028 Complete blood count (CBC) with automate d white blood cell (WBC) differential - 03/15/19 03:12 Blood leukocytes automated count (number/volume) 5.9 10*3/uL 4.3-11.0 Blood erythrocytes automated count (number/volume) 3.56 10*6/uL 4.35-5.85 Venous blood hemoglobin measurement (mass/volume) 10.5 g/dL 11.5-16.0 Blood hematocrit (volume fraction) 33 % 35-52 Automated erythrocyte mean corpuscular volume 92 [ foz_us] 80-99 Automated erythrocyte mean corpuscular h emoglobin (mass per erythrocyte) 30 pg 25-34 Automated erythrocyte mean corpuscular h emoglobin concentration measurement (mass/volume) 32 g/dL 32-36 Automated erythrocyte distribution width ratio 13. 5 % 10.0- 14.5 Automated blood platelet count (count/volume) 269 10*3/uL 130-400 Automated blood platelet mean volume measurement 10.6 [foz_us] 7.4-10.4 Automated blood neutrophils/100 leukocytes 93 % 42-75 Automated blood lymphocytes/100 leukocytes 6 % 12-44 Blood monocytes/100 leukocytes 1 % 0-12 Automated blood eosinophils/100 leukocytes 0 % 0-10 Automated blood basophils/100 leukocytes 0 % 0-10 Blood neutrophils automated count (number/volume) 5.5 10*3 1.8-7.8 Blood lymphocytes automated count (number/volume) 0.3 10*3 1.0-4.0 Blood monocytes automated count (number/volume) 0. 1 10*3 0.0-1.0 Automated eosinophil count 0.0 10*3/uL 0 .0-0.3 Automated blood basophil count (count/volume) 0.0 10*3/uL 0.0-0.1 Whole blood basic metabolic panel - 08/28 03:12 Serum or plasma sodium measurement (moles/volume) 140 mmol/L 135-145 Serum or plasma potassium measurement (moles/volume) 4.0 mmol/L 3.6-5.0 Serum or plasma chloride measurement (moles/volume) 101 mmol/L 98-107 Carbon dioxide 25 mmol/L 21-32 Serum or plasma anion gap determination (moles/volume) 14 mmol/L 5-14 Serum or plasma urea nitrogen measurement (mass/volume ) 28 mg/dL 7-18 Serum or plasma creatinine measurement (mass/volume) 1.57 mg/dL 0.60-1.30 Serum or plasma urea nitrogen/creatinine mass ratio 18 NRG Serum or plasma creatinine measurement w ith calculation of estimated glomerular filtration rate 40 NRG Serum or plasma glucose measurement (mass/volume) 131 mg/dL 70-105 Serum or plasma calcium measurement (mass/volume) 9.6 mg/dL 8.5-10.1 Serum or plasma phosphate measurement (m ass/volume) - 03/15/19 03:12 Serum or plasma phosphate measurement (mass/volume) 4.0 mg/dL 2.3-4.7 Magnesium - 03/15/19 03:12 Magnesium 2.1 mg/dL 1.6-2.4 Manual absolute plasma cell count - 08/28 03:12 Blood monocytes/100 leukocytes 3 % NRG Manual blood segmented neutrophils/100 leukocytes 88 % NRG Blood band neutrophils/100 leukocytes 2 % NRG Manual blood lymphocytes/100 leukocytes 7 % NRG Blood erythrocyte morphology finding identification NORMAL NRG PROCALCITONIN (PCT) - 03/15/19 03:12 PROCALCITONIN (PCT) 0.05 ng/mL <0.10 Complete blood count (CBC) with automate d white blood cell (WBC) differential - 03/16/19 03:20 Blood leukocytes automated count (number/volume) 7.8 10*3/uL 4.3-11.0 Blood erythrocytes automated count (number/volume) 3.50 10*6/uL 4.35-5.85 Venous blood hemoglobin measurement (mass/volume) 10.2 g/dL 11.5-16.0 Blood hematocrit (volume fraction) 32 % 35-52 Automated erythrocyte mean corpuscular volume 93 [ foz_us] 80-99 Automated erythrocyte mean corpuscular h emoglobin (mass per erythrocyte) 29 pg 25-34 Automated erythrocyte mean corpuscular h emoglobin concentration measurement (mass/volume) 32 g/dL 32-36 Automated erythrocyte distribution width ratio 14. 2 % 10.0- 14.5 Automated blood platelet count (count/volume) 280 10*3/uL 130-400 Automated blood platelet mean volume measurement 10.2 [foz_us] 7.4-10.4 Automated blood neutrophils/100 leukocytes 79 % 42-75 Automated blood lymphocytes/100 leukocytes 10 % 12-44 Blood monocytes/100 leukocytes 10 % 0-12 Automated blood eosinophils/100 leukocytes 0 % 0-10 Automated blood basophils/100 leukocytes 0 % 0-10 Blood neutrophils automated count (number/volume) 6.1 10*3 1.8-7.8 Blood lymphocytes automated count (number/volume) 0.8 10*3 1.0-4.0 Blood monocytes automated count (number/volume) 0. 8 10*3 0.0-1.0 Automated eosinophil count 0.0 10*3/uL 0 .0-0.3 Automated blood basophil count (count/volume) 0.0 10*3/uL 0.0-0.1 Whole blood basic metabolic panel - 09/27 03:20 Serum or plasma sodium measurement (moles/volume) 141 mmol/L 135-145 Serum or plasma potassium measurement (moles/volume) 4.3 mmol/L 3.6-5.0 Serum or plasma chloride measurement (moles/volume) 103 mmol/L 98-107 Carbon dioxide 27 mmol/L 21-32 Serum or plasma anion gap determination (moles/volume) 11 mmol/L 5-14 Serum or plasma urea nitrogen measurement (mass/volume ) 44 mg/dL 7-18 Serum or plasma creatinine measurement (mass/volume) 1.83 mg/dL 0.60-1.30 Serum or plasma urea nitrogen/creatinine mass ratio 24 NRG Serum or plasma creatinine measurement w ith calculation of estimated glomerular filtration rate 33 NRG Serum or plasma glucose measurement (mass/volume) 112 mg/dL 70-105 Serum or plasma calcium measurement (mass/volume) 9.6 mg/dL 8.5-10.1 Serum or plasma phosphate measurement (m ass/volume) - 03/16/19 03:20 Serum or plasma phosphate measurement (mass/volume) 3.4 mg/dL 2.3-4.7 Magnesium - 03/16/19 03:20 Magnesium 2.2 mg/dL 1.6-2.4 Sputum Gram stain - 03/16/19 06:45 Sputum Gram stain Rare Gram positive cocci in pair s NRG Bacteria identification in bronchial spe cimen by aerobe culture - 03/16/19 06:45 QUANTITY OF GROWTH . NRG Bacteria identification in bronchial specimen by aerob e culture USUAL RESP NRG FTX;REPORTABLE 10,000 CFU/ML NRG Fungus culture - 03/16/19 06:45 Mycobacterium species detection by organ ism specific culture - 03/16/19 06:45 Complete blood count (CBC) with automate d white blood cell (WBC) differential - 03/17/19 03:25 Blood leukocytes automated count (number/volume) 6.6 10*3/uL 4.3-11.0 Blood erythrocytes automated count (number/volume) 3.48 10*6/uL 4.35-5.85 Venous blood hemoglobin measurement (mass/volume) 10.2 g/dL 11.5-16.0 Blood hematocrit (volume fraction) 32 % 35-52 Automated erythrocyte mean corpuscular volume 93 [ foz_us] 80-99 Automated erythrocyte mean corpuscular h emoglobin (mass per erythrocyte) 29 pg 25-34 Automated erythrocyte mean corpuscular h emoglobin concentration measurement (mass/volume) 32 g/dL 32-36 Automated erythrocyte distribution width ratio 13. 9 % 10.0- 14.5 Automated blood platelet count (count/volume) 273 10*3/uL 130-400 Automated blood platelet mean volume measurement 10.2 [foz_us] 7.4-10.4 Automated blood neutrophils/100 leukocytes 89 % 42-75 Automated blood lymphocytes/100 leukocytes 5 % 12-44 Blood monocytes/100 leukocytes 6 % 0-12 Automated blood eosinophils/100 leukocytes 0 % 0-10 Automated blood basophils/100 leukocytes 0 % 0-10 Blood neutrophils automated count (number/volume) 5.9 10*3 1.8-7.8 Blood lymphocytes automated count (number/volume) 0.4 10*3 1.0-4.0 Blood monocytes automated count (number/volume) 0. 4 10*3 0.0-1.0 Automated eosinophil count 0.0 10*3/uL 0 .0-0.3 Automated blood basophil count (count/volume) 0.0 10*3/uL 0.0-0.1 Whole blood basic metabolic panel - 10/28 03:25 Serum or plasma sodium measurement (moles/volume) 140 mmol/L 135-145 Serum or plasma potassium measurement (moles/volume) 4.6 mmol/L 3.6-5.0 Serum or plasma chloride measurement (moles/volume) 101 mmol/L 98-107 Carbon dioxide 28 mmol/L 21-32 Serum or plasma anion gap determination (moles/volume) 11 mmol/L 5-14 Serum or plasma urea nitrogen measurement (mass/volume ) 39 mg/dL 7-18 Serum or plasma creatinine measurement (mass/volume) 1.41 mg/dL 0.60-1.30 Serum or plasma urea nitrogen/creatinine mass ratio 28 NRG Serum or plasma creatinine measurement w ith calculation of estimated glomerular filtration rate 45 NRG Serum or plasma glucose measurement (mass/volume) 110 mg/dL 70-105 Serum or plasma calcium measurement (mass/volume) 9.3 mg/dL 8.5-10.1 Serum or plasma phosphate measurement (m ass/volume) - 03/17/19 03:25 Serum or plasma phosphate measurement (mass/volume) 3.4 mg/dL 2.3-4.7 Magnesium - 03/17/19 03:25 Magnesium 2.2 mg/dL 1.6-2.4 Complete blood count (CBC) with automate d white blood cell (WBC) differential - 03/28/19 21:28 Blood leukocytes automated count (number/volume) 8.4 10*3/uL 4.3-11.0 Blood erythrocytes automated count (number/volume) 3.43 10*6/uL 4.35-5.85 Venous blood hemoglobin measurement (mass/volume) 9.9 g/dL 11.5-16.0 Blood hematocrit (volume fraction) 32 % 35-52 Automated erythrocyte mean corpuscular volume 93 [ foz_us] 80-99 Automated erythrocyte mean corpuscular h emoglobin (mass per erythrocyte) 29 pg 25-34 Automated erythrocyte mean corpuscular h emoglobin concentration measurement (mass/volume) 31 g/dL 32-36 Automated erythrocyte distribution width ratio 14. 9 % 10.0- 14.5 Automated blood platelet count (count/volume) 174 10*3/uL 130-400 Automated blood platelet mean volume measurement 11.3 [foz_us] 7.4-10.4 Automated blood neutrophils/100 leukocytes 80 % 42-75 Automated blood lymphocytes/100 leukocytes 10 % 12-44 Blood monocytes/100 leukocytes 9 % 0-12 Automated blood eosinophils/100 leukocytes 1 % 0-10 Automated blood basophils/100 leukocytes 0 % 0-10 Blood neutrophils automated count (number/volume) 6.7 10*3 1.8-7.8 Blood lymphocytes automated count (number/volume) 0.8 10*3 1.0-4.0 Blood monocytes automated count (number/volume) 0. 8 10*3 0.0-1.0 Automated eosinophil count 0.1 10*3/uL 0 .0-0.3 Automated blood basophil count (count/volume) 0.0 10*3/uL 0.0-0.1 Comprehensive metabolic panel - 03/28/19 21:28 Serum or plasma sodium measurement (moles/volume) 138 mmol/L 135-145 Serum or plasma potassium measurement (moles/volume) 3.9 mmol/L 3.6-5.0 Serum or plasma chloride measurement (moles/volume) 101 mmol/L 98-107 Carbon dioxide 25 mmol/L 21-32 Serum or plasma anion gap determination (moles/volume) 12 mmol/L 5-14 Serum or plasma urea nitrogen measurement (mass/volume ) 21 mg/dL 7-18 Serum or plasma creatinine measurement (mass/volume) 1.43 mg/dL 0.60-1.30 Serum or plasma urea nitrogen/creatinine mass ratio 15 NRG Serum or plasma creatinine measurement w ith calculation of estimated glomerular filtration rate 44 NRG Serum or plasma glucose measurement (mass/volume) 102 mg/dL 70-105 Serum or plasma calcium measurement (mass/volume) 9.2 mg/dL 8.5-10.1 Serum or plasma total bilirubin measurement (mass/volu me) 0.9 mg/dL 0.1-1.0 Serum or plasma alkaline phosphatase janine surement (enzymatic activity/volume) 59 U/L 40-136 Serum or plasma aspartate aminotransfera se measurement (enzymatic activity/volume) 20 U/L 5-34 Serum or plasma alanine aminotransferase measurement (enzymatic activity/volume) 25 U/L 0-55 Serum or plasma protein measurement (mass/volume) 7.2 g/dL 6.4-8.2 Serum or plasma albumin measurement (mass/volume) 3.9 g/dL 3.2-4.5 CALCIUM CORRECTED 9.3 mg/dL 8.5-10.1 Serum or plasma C reactive protein measu rement (mass/volume) - 03/28/19 21:28 Serum or plasma C reactive protein measurement (mass/v olume) 4.10 mg/dL 0.00-0.50 Blood lactic acid measurement (moles/vol ume) - 03/28/19 22:27 Blood lactic acid measurement (moles/volume) 1.48 mmol/L 0.50-2.00 Bacterial blood culture - 03/28/19 22:27 Bacterial blood culture NG NRG Bacterial blood culture - 03/28/19 22:30 Bacterial blood culture NG NRG Serum or plasma C reactive protein measu rement (mass/volume) - 03/29/19 10:02 Serum or plasma C reactive protein measurement (mass/v olume) 4.59 mg/dL 0.00-0.50 Erythrocyte sedimentation rate by rik gren method - 03/29/19 10:02 Erythrocyte sedimentation rate by westergren method 62 mm 0- 30 Serum or plasma alpha 1 antitrypsin antonio urement (mass/volume) - 03/29/19 10:02 Serum or plasma alpha 1 antitrypsin measurement (mass/ volume) 199.8 % 90.0-200.0 ANTI-NUCLEAR AB (SAMIR) ANALYZER - 9 10:02 Screening antinuclear antibody (SAMIR) assay by enzyme i mmunoassay <1:80 <1:80 Serum classic neutrophil cytoplasmic ant ibody assay (units/volume) - 03/29/19 10:02 Antineutrophil cytoplasmic antibody (ANCA) assay < <1:20 Antineutrophil cytoplasmic antibody (ANCA) pattern Not Indicated NRG RA FACTOR (RHEUMATOID FACTOR) - 03/29/19 10:02 Serum or plasma rheumatoid factor measurement (units/v olume) < [iU]/mL 0-29 Interpretation of rheumatoid factor assay Negative Negative Whole blood basic metabolic panel - 03/12 01/28 05:29 Serum or plasma sodium measurement (moles/volume) 139 mmol/L 135-145 Serum or plasma potassium measurement (moles/volume) 3.8 mmol/L 3.6-5.0 Serum or plasma chloride measurement (moles/volume) 100 mmol/L 98-107 Carbon dioxide 24 mmol/L 21-32 Serum or plasma anion gap determination (moles/volume) 15 mmol/L 5-14 Serum or plasma urea nitrogen measurement (mass/volume ) 34 mg/dL 7-18 Serum or plasma creatinine measurement (mass/volume) 1.53 mg/dL 0.60-1.30 Serum or plasma urea nitrogen/creatinine mass ratio 22 NRG Serum or plasma creatinine measurement w ith calculation of estimated glomerular filtration rate 41 NRG Serum or plasma glucose measurement (mass/volume) 150 mg/dL 70-105 Serum or plasma calcium measurement (mass/volume) 9.6 mg/dL 8.5-10.1 Magnesium - 03/30/19 05:29 Magnesium 2.3 mg/dL 1.6-2.4 Complete blood count (CBC) with automate d white blood cell (WBC) differential - 04/11/19 01:38 Blood leukocytes automated count (number/volume) 6.7 10*3/uL 4.3-11.0 Blood erythrocytes automated count (number/volume) 3.41 10*6/uL 4.35-5.85 Venous blood hemoglobin measurement (mass/volume) 9.8 g/dL 11.5-16.0 Blood hematocrit (volume fraction) 32 % 35-52 Automated erythrocyte mean corpuscular volume 93 [ foz_us] 80-99 Automated erythrocyte mean corpuscular h emoglobin (mass per erythrocyte) 29 pg 25-34 Automated erythrocyte mean corpuscular h emoglobin concentration measurement (mass/volume) 31 g/dL 32-36 Automated erythrocyte distribution width ratio 14. 7 % 10.0- 14.5 Automated blood platelet count (count/volume) 180 10*3/uL 130-400 Automated blood platelet mean volume measurement 10.5 [foz_us] 7.4-10.4 Automated blood neutrophils/100 leukocytes 77 % 42-75 Automated blood lymphocytes/100 leukocytes 13 % 12-44 Blood monocytes/100 leukocytes 8 % 0-12 Automated blood eosinophils/100 leukocytes 1 % 0-10 Automated blood basophils/100 leukocytes 0 % 0-10 Blood neutrophils automated count (number/volume) 5.1 10*3 1.8-7.8 Blood lymphocytes automated count (number/volume) 0.9 10*3 1.0-4.0 Blood monocytes automated count (number/volume) 0. 6 10*3 0.0-1.0 Automated eosinophil count 0.1 10*3/uL 0 .0-0.3 Automated blood basophil count (count/volume) 0.0 10*3/uL 0.0-0.1 Comprehensive metabolic panel - 04/11/19 01:38 Serum or plasma sodium measurement (moles/volume) 139 mmol/L 135-145 Serum or plasma potassium measurement (moles/volume) 3.7 mmol/L 3.6-5.0 Serum or plasma chloride measurement (moles/volume) 98 mmol/L 98-107 Carbon dioxide 27 mmol/L 21-32 Serum or plasma anion gap determination (moles/volume) 14 mmol/L 5-14 Serum or plasma urea nitrogen measurement (mass/volume ) 26 mg/dL 7-18 Serum or plasma creatinine measurement (mass/volume) 1.75 mg/dL 0.60-1.30 Serum or plasma urea nitrogen/creatinine mass ratio 15 NRG Serum or plasma creatinine measurement w ith calculation of estimated glomerular filtration rate 35 NRG Serum or plasma glucose measurement (mass/volume) 105 mg/dL 70-105 Serum or plasma calcium measurement (mass/volume) 8.9 mg/dL 8.5-10.1 Serum or plasma total bilirubin measurement (mass/volu me) 0.6 mg/dL 0.1-1.0 Serum or plasma alkaline phosphatase janine surement (enzymatic activity/volume) 58 U/L 40-136 Serum or plasma aspartate aminotransfera se measurement (enzymatic activity/volume) 20 U/L 5-34 Serum or plasma alanine aminotransferase measurement (enzymatic activity/volume) 22 U/L 0-55 Serum or plasma protein measurement (mass/volume) 7.0 g/dL 6.4-8.2 Serum or plasma albumin measurement (mass/volume) 3.9 g/dL 3.2-4.5 CALCIUM CORRECTED 9.0 mg/dL 8.5-10.1 Serum or plasma troponin i.cardiac measu rement (mass/volume) - 04/11/19 01:38 Serum or plasma troponin i.cardiac measurement (mass/v olume) 0.034 ng/mL <0.028 Serum or plasma C reactive protein measu rement (mass/volume) - 04/11/19 01:38 Serum or plasma C reactive protein measurement (mass/v olume) 1.64 mg/dL 0.00-0.50 Serum or plasma lithium measurement (mol es/volume) - 04/11/19 01:38 BNP PT 582.0 pg/mL <100.0 PT panel in platelet poor plasma by coag ulation assay - 04/11/19 01:38 Prothrombin time (PT) in platelet poor plasma by coagu lation assay 16.6 s 12.2-14.7 INR in platelet poor plasma or blood by coagulation as say 1.3 0.8-1.4 Activated partial thromboplastin time (a PTT) in platelet poor plasma bycoagulation assay - 04/11/19 01:38 Activated partial thromboplastin time (a PTT) in platelet poor plasma bycoagulation assay 34 s 24-35 Magnesium - 04/11/19 01:38 Magnesium 1.8 mg/dL 1.6-2.4 Myoglobin, serum - 04/11/19 01:38 Myoglobin, serum 64.8 ng/mL 10.0-92.0 Serum or plasma troponin i.cardiac measu rement (mass/volume) - 04/11/19 07:55 Serum or plasma troponin i.cardiac measurement (mass/v olume) 0.033 ng/mL <0.028 Lipid 1996 panel - 04/11/19 07:55 Serum or plasma triglyceride measurement (mass/volume) 87 mg/dL <150 Serum or plasma cholesterol measurement (mass/volume) 177 mg/dL < 200 Serum or plasma cholesterol in HDL measurement (mass/v olume) 53 mg/dL 40-60 Cholesterol in LDL [mass/volume] in serum or plasma by direct assay 112 mg/dL 1-129 Serum or plasma cholesterol in VLDL measurement (mass/ volume) 17 mg/dL 5-40 Complete blood count (CBC) with automate d white blood cell (WBC) differential - 04/12/19 04:35 Blood leukocytes automated count (number/volume) 5.8 10*3/uL 4.3-11.0 Blood erythrocytes automated count (number/volume) 3.05 10*6/uL 4.35-5.85 Venous blood hemoglobin measurement (mass/volume) 8.8 g/dL 11.5-16.0 Blood hematocrit (volume fraction) 29 % 35-52 Automated erythrocyte mean corpuscular volume 94 [ foz_us] 80-99 Automated erythrocyte mean corpuscular h emoglobin (mass per erythrocyte) 29 pg 25-34 Automated erythrocyte mean corpuscular h emoglobin concentration measurement (mass/volume) 31 g/dL 32-36 Automated erythrocyte distribution width ratio 14. 9 % 10.0- 14.5 Automated blood platelet count (count/volume) 164 10*3/uL 130-400 Automated blood platelet mean volume measurement 10.6 [foz_us] 7.4-10.4 Automated blood neutrophils/100 leukocytes 78 % 42-75 Automated blood lymphocytes/100 leukocytes 11 % 12-44 Blood monocytes/100 leukocytes 10 % 0-12 Automated blood eosinophils/100 leukocytes 2 % 0-10 Automated blood basophils/100 leukocytes 0 % 0-10 Blood neutrophils automated count (number/volume) 4.5 10*3 1.8-7.8 Blood lymphocytes automated count (number/volume) 0.6 10*3 1.0-4.0 Blood monocytes automated count (number/volume) 0. 6 10*3 0.0-1.0 Automated eosinophil count 0.1 10*3/uL 0 .0-0.3 Automated blood basophil count (count/volume) 0.0 10*3/uL 0.0-0.1 Comprehensive metabolic panel - 04/12/19 04:35 Serum or plasma sodium measurement (moles/volume) 142 mmol/L 135-145 Serum or plasma potassium measurement (moles/volume) 3.9 mmol/L 3.6-5.0 Serum or plasma chloride measurement (moles/volume) 103 mmol/L 98-107 Carbon dioxide 31 mmol/L 21-32 Serum or plasma anion gap determination (moles/volume) 8 mmol/L 5-14 Serum or plasma urea nitrogen measurement (mass/volume ) 23 mg/dL 7-18 Serum or plasma creatinine measurement (mass/volume) 1.59 mg/dL 0.60-1.30 Serum or plasma urea nitrogen/creatinine mass ratio 14 NRG Serum or plasma creatinine measurement w ith calculation of estimated glomerular filtration rate 39 NRG Serum or plasma glucose measurement (mass/volume) 100 mg/dL 70-105 Serum or plasma calcium measurement (mass/volume) 8.9 mg/dL 8.5-10.1 Serum or plasma total bilirubin measurement (mass/volu me) 0.6 mg/dL 0.1-1.0 Serum or plasma alkaline phosphatase janine surement (enzymatic activity/volume) 50 U/L 40-136 Serum or plasma aspartate aminotransfera se measurement (enzymatic activity/volume) 15 U/L 5-34 Serum or plasma alanine aminotransferase measurement (enzymatic activity/volume) 18 U/L 0-55 Serum or plasma protein measurement (mass/volume) 6.2 g/dL 6.4-8.2 Serum or plasma albumin measurement (mass/volume) 3.5 g/dL 3.2-4.5 CALCIUM CORRECTED 9.3 mg/dL 8.5-10.1 Lipid 1996 panel - 04/12/19 04:35 Serum or plasma triglyceride measurement (mass/volume) 64 mg/dL <150 Serum or plasma cholesterol measurement (mass/volume) 165 mg/dL < 200 Serum or plasma cholesterol in HDL measurement (mass/v olume) 49 mg/dL 40-60 Cholesterol in LDL [mass/volume] in serum or plasma by direct assay 105 mg/dL 1-129 Serum or plasma cholesterol in VLDL measurement (mass/ volume) 13 mg/dL 5-40 Automated blood complete blood count (he mogram) panel - 04/13/19 05:25 Blood leukocytes automated count (number/volume) 6.1 10*3/uL 4.3-11.0 Blood erythrocytes automated count (number/volume) 3.16 10*6/uL 4.35-5.85 Venous blood hemoglobin measurement (mass/volume) 9.1 g/dL 11.5-16.0 Blood hematocrit (volume fraction) 30 % 35-52 Automated erythrocyte mean corpuscular volume 94 [ foz_us] 80-99 Automated erythrocyte mean corpuscular h emoglobin (mass per erythrocyte) 29 pg 25-34 Automated erythrocyte mean corpuscular h emoglobin concentration measurement (mass/volume) 31 g/dL 32-36 Automated erythrocyte distribution width ratio 14. 9 % 10.0- 14.5 Automated blood platelet count (count/volume) 176 10*3/uL 130-400 Automated blood platelet mean volume measurement 11.1 [foz_us] 7.4-10.4 Whole blood basic metabolic panel - 07/28 05:25 Serum or plasma sodium measurement (moles/volume) 142 mmol/L 135-145 Serum or plasma potassium measurement (moles/volume) 3.9 mmol/L 3.6-5.0 Serum or plasma chloride measurement (moles/volume) 101 mmol/L 98-107 Carbon dioxide 29 mmol/L 21-32 Serum or plasma anion gap determination (moles/volume) 12 mmol/L 5-14 Serum or plasma urea nitrogen measurement (mass/volume ) 20 mg/dL 7-18 Serum or plasma creatinine measurement (mass/volume) 1.24 mg/dL 0.60-1.30 Serum or plasma urea nitrogen/creatinine mass ratio 16 NRG Serum or plasma creatinine measurement w ith calculation of estimated glomerular filtration rate 52 NRG Serum or plasma glucose measurement (mass/volume) 97 mg/dL 70-105 Serum or plasma calcium measurement (mass/volume) 9.1 mg/dL 8.5-10.1 PT panel in platelet poor plasma by coag ulation assay - 04/13/19 05:25 Prothrombin time (PT) in platelet poor plasma by coagu lation assay 18.1 s 12.2-14.7 INR in platelet poor plasma or blood by coagulation as say 1.4 0.8-1.4 Activated partial thromboplastin time (a PTT) in platelet poor plasma bycoagulation assay - 04/13/19 05:25 Activated partial thromboplastin time (a PTT) in platelet poor plasma bycoagulation assay 35 s 24-35 Comprehensive metabolic panel - 04/13/19 05:25 Serum or plasma sodium measurement (moles/volume) 142 mmol/L 135-145 Serum or plasma potassium measurement (moles/volume) 3.9 mmol/L 3.6-5.0 Serum or plasma chloride measurement (moles/volume) 102 mmol/L 98-107 Carbon dioxide 28 mmol/L 21-32 Serum or plasma anion gap determination (moles/volume) 12 mmol/L 5-14 Serum or plasma urea nitrogen measurement (mass/volume ) 20 mg/dL 7-18 Serum or plasma creatinine measurement (mass/volume) 1.23 mg/dL 0.60-1.30 Serum or plasma urea nitrogen/creatinine mass ratio 16 NRG Serum or plasma creatinine measurement w ith calculation of estimated glomerular filtration rate 53 NRG Serum or plasma glucose measurement (mass/volume) 97 mg/dL 70-105 Serum or plasma calcium measurement (mass/volume) 9.1 mg/dL 8.5-10.1 Serum or plasma total bilirubin measurement (mass/volu me) 0.7 mg/dL 0.1-1.0 Serum or plasma alkaline phosphatase janine surement (enzymatic activity/volume) 56 U/L 40-136 Serum or plasma aspartate aminotransfera se measurement (enzymatic activity/volume) 19 U/L 5-34 Serum or plasma alanine aminotransferase measurement (enzymatic activity/volume) 18 U/L 0-55 Serum or plasma protein measurement (mass/volume) 6.4 g/dL 6.4-8.2 Serum or plasma albumin measurement (mass/volume) 3.6 g/dL 3.2-4.5 CALCIUM CORRECTED 9.4 mg/dL 8.5-10.1 Serum or plasma phosphate measurement (m ass/volume) - 04/13/19 05:25 Serum or plasma phosphate measurement (mass/volume) 2.9 mg/dL 2.3-4.7 Magnesium - 04/13/19 05:25 Magnesium 2.0 mg/dL 1.6-2.4 Serum or plasma lithium measurement (mol es/volume) - 04/13/19 05:25 BNP PT 1030.3 pg/mL <100.0 Complete blood count (CBC) with automate d white blood cell (WBC) differential - 05/07/19 10:55 Blood leukocytes automated count (number/volume) 7.7 10*3/uL 4.3-11.0 Blood erythrocytes automated count (number/volume) 3.37 10*6/uL 4.35-5.85 Venous blood hemoglobin measurement (mass/volume) 9.7 g/dL 11.5-16.0 Blood hematocrit (volume fraction) 33 % 35-52 Automated erythrocyte mean corpuscular volume 97 [ foz_us] 80-99 Automated erythrocyte mean corpuscular h emoglobin (mass per erythrocyte) 29 pg 25-34 Automated erythrocyte mean corpuscular h emoglobin concentration measurement (mass/volume) 30 g/dL 32-36 Automated erythrocyte distribution width ratio 17. 6 % 10.0- 14.5 Automated blood platelet count (count/volume) 167 10*3/uL 130-400 Automated blood platelet mean volume measurement 10.6 [foz_us] 7.4-10.4 Automated blood neutrophils/100 leukocytes 88 % 42-75 Automated blood lymphocytes/100 leukocytes 6 % 12-44 Blood monocytes/100 leukocytes 6 % 0-12 Automated blood eosinophils/100 leukocytes 0 % 0-10 Automated blood basophils/100 leukocytes 0 % 0-10 Blood neutrophils automated count (number/volume) 6.8 10*3 1.8-7.8 Blood lymphocytes automated count (number/volume) 0.5 10*3 1.0-4.0 Blood monocytes automated count (number/volume) 0. 5 10*3 0.0-1.0 Automated eosinophil count 0.0 10*3/uL 0 .0-0.3 Automated blood basophil count (count/volume) 0.0 10*3/uL 0.0-0.1 PT panel in platelet poor plasma by coag ulation assay - 05/07/19 10:55 Prothrombin time (PT) in platelet poor plasma by coagu lation assay 18.8 s 12.2-14.7 INR in platelet poor plasma or blood by coagulation as say 1.5 0.8-1.4 Activated partial thromboplastin time (a PTT) in platelet poor plasma bycoagulation assay - 05/07/19 10:55 Activated partial thromboplastin time (a PTT) in platelet poor plasma bycoagulation assay 33 s 24-35 Comprehensive metabolic panel - 05/07/19 10:55 Serum or plasma sodium measurement (moles/volume) 141 mmol/L 135-145 Serum or plasma potassium measurement (moles/volume) 3.9 mmol/L 3.6-5.0 Serum or plasma chloride measurement (moles/volume) 101 mmol/L 98-107 Carbon dioxide 26 mmol/L 21-32 Serum or plasma anion gap determination (moles/volume) 14 mmol/L 5-14 Serum or plasma urea nitrogen measurement (mass/volume ) 36 mg/dL 7-18 Serum or plasma creatinine measurement (mass/volume) 1.72 mg/dL 0.60-1.30 Serum or plasma urea nitrogen/creatinine mass ratio 21 NRG Serum or plasma creatinine measurement w ith calculation of estimated glomerular filtration rate 36 NRG Serum or plasma glucose measurement (mass/volume) 125 mg/dL 70-105 Serum or plasma calcium measurement (mass/volume) 9.5 mg/dL 8.5-10.1 Serum or plasma total bilirubin measurement (mass/volu me) 1.8 mg/dL 0.1-1.0 Serum or plasma alkaline phosphatase janine surement (enzymatic activity/volume) 109 U/L 40-136 Serum or plasma aspartate aminotransfera se measurement (enzymatic activity/volume) 30 U/L 5-34 Serum or plasma alanine aminotransferase measurement (enzymatic activity/volume) 56 U/L 0-55 Serum or plasma protein measurement (mass/volume) 6.8 g/dL 6.4-8.2 Serum or plasma albumin measurement (mass/volume) 4.1 g/dL 3.2-4.5 CALCIUM CORRECTED 9.4 mg/dL 8.5-10.1 Magnesium - 05/07/19 10:55 Magnesium 2.2 mg/dL 1.6-2.4 Serum or plasma creatine kinase measurem ent (enzymatic activity/volume) - 05/07/19 10:55 Serum or plasma creatine kinase measurem ent (enzymatic activity/volume) 96 U/L 29-168 Manual absolute plasma cell count - 04/12 11/27 10:55 Blood monocytes/100 leukocytes 3 % NRG Manual blood segmented neutrophils/100 leukocytes 86 % NRG Blood band neutrophils/100 leukocytes 2 % NRG Manual blood lymphocytes/100 leukocytes 9 % NRG Manual eosinophils/100 leukocytes in nose 0 % NRG Manual blood basophils/100 leukocytes 0 % NRG Blood polychromasia detection by light microscopy SLIGHT NRG Blood anisocytosis detection by light microscopy S LIGHT NRG Blood ovalocytes detection by light microscopy SLI GHT NRG Serum or plasma creatine kinase MB measu rement (enzymatic activity/volume) - 05/07/19 10:55 Serum or plasma creatine kinase MB measu rement (enzymatic activity/volume) 4.1 ng/mL <6.6 Serum or plasma troponin i.cardiac measu rement (mass/volume) - 05/07/19 10:55 Serum or plasma troponin i.cardiac measurement (mass/v olume) 0.051 ng/mL <0.028 Myoglobin, serum - 05/07/19 10:55 Myoglobin, serum 125.0 ng/mL 10.0-92.0 Serum or plasma thyrotropin measurement by detection limit <=0.05 miu/l (units/volume) - 05/07/19 10:55 Serum or plasma thyrotropin measurement by detection limit <=0.05 miu/l (units/volume) 1.79 u[iU]/mL 0.35-4.94 Serum or plasma lithium measurement (mol es/volume) - 05/07/19 10:55 BNP PT 1119.3 pg/mL <100.0 Capillary blood glucose measurement by g lucometer (mass/volume) - 05/07/19 16:06 Capillary blood glucose measurement by glucometer (mas s/volume) 122 mg/dL 70-110 Serum or plasma troponin i.cardiac measu rement (mass/volume) - 05/07/19 16:43 Serum or plasma troponin i.cardiac measurement (mass/v olume) 0.059 ng/mL <0.028 Capillary blood glucose measurement by g lucometer (mass/volume) - 05/07/19 20:54 Capillary blood glucose measurement by glucometer (mas s/volume) 128 mg/dL 70-110 Serum or plasma troponin i.cardiac measu rement (mass/volume) - 05/07/19 23:06 Serum or plasma troponin i.cardiac measurement (mass/v olume) 0.064 ng/mL <0.028 Comprehensive metabolic panel - 05/08/19 03:42 Serum or plasma sodium measurement (moles/volume) 142 mmol/L 135-145 Serum or plasma potassium measurement (moles/volume) 3.6 mmol/L 3.6-5.0 Serum or plasma chloride measurement (moles/volume) 100 mmol/L 98-107 Carbon dioxide 30 mmol/L 21-32 Serum or plasma anion gap determination (moles/volume) 12 mmol/L 5-14 Serum or plasma urea nitrogen measurement (mass/volume ) 32 mg/dL 7-18 Serum or plasma creatinine measurement (mass/volume) 1.56 mg/dL 0.60-1.30 Serum or plasma urea nitrogen/creatinine mass ratio 21 NRG Serum or plasma creatinine measurement w ith calculation of estimated glomerular filtration rate 40 NRG Serum or plasma glucose measurement (mass/volume) 96 mg/dL 70-105 Serum or plasma calcium measurement (mass/volume) 9.0 mg/dL 8.5-10.1 Serum or plasma total bilirubin measurement (mass/volu me) 1.5 mg/dL 0.1-1.0 Serum or plasma alkaline phosphatase janine surement (enzymatic activity/volume) 86 U/L 40-136 Serum or plasma aspartate aminotransfera se measurement (enzymatic activity/volume) 23 U/L 5-34 Serum or plasma alanine aminotransferase measurement (enzymatic activity/volume) 42 U/L 0-55 Serum or plasma protein measurement (mass/volume) 5.9 g/dL 6.4-8.2 Serum or plasma albumin measurement (mass/volume) 3.5 g/dL 3.2-4.5 CALCIUM CORRECTED 9.4 mg/dL 8.5-10.1 Complete blood count (CBC) with automate d white blood cell (WBC) differential - 05/08/19 03:42 Blood leukocytes automated count (number/volume) 6.4 10*3/uL 4.3-11.0 Blood erythrocytes automated count (number/volume) 2.99 10*6/uL 4.35-5.85 Venous blood hemoglobin measurement (mass/volume) 8.7 g/dL 11.5-16.0 Blood hematocrit (volume fraction) 29 % 35-52 Automated erythrocyte mean corpuscular volume 97 [ foz_us] 80-99 Automated erythrocyte mean corpuscular h emoglobin (mass per erythrocyte) 29 pg 25-34 Automated erythrocyte mean corpuscular h emoglobin concentration measurement (mass/volume) 30 g/dL 32-36 Automated erythrocyte distribution width ratio 17. 1 % 10.0- 14.5 Automated blood platelet count (count/volume) 135 10*3/uL 130-400 Automated blood platelet mean volume measurement 10.8 [foz_us] 7.4-10.4 Automated blood neutrophils/100 leukocytes 81 % 42-75 Automated blood lymphocytes/100 leukocytes 10 % 12-44 Blood monocytes/100 leukocytes 7 % 0-12 Automated blood eosinophils/100 leukocytes 2 % 0-10 Automated blood basophils/100 leukocytes 0 % 0-10 Blood neutrophils automated count (number/volume) 5.2 10*3 1.8-7.8 Blood lymphocytes automated count (number/volume) 0.7 10*3 1.0-4.0 Blood monocytes automated count (number/volume) 0. 5 10*3 0.0-1.0 Automated eosinophil count 0.1 10*3/uL 0 .0-0.3 Automated blood basophil count (count/volume) 0.0 10*3/uL 0.0-0.1 Complete blood count (CBC) with automate d white blood cell (WBC) differential - 05/09/19 06:25 Blood leukocytes automated count (number/volume) 6.0 10*3/uL 4.3-11.0 Blood erythrocytes automated count (number/volume) 3.13 10*6/uL 4.35-5.85 Venous blood hemoglobin measurement (mass/volume) 9.0 g/dL 11.5-16.0 Blood hematocrit (volume fraction) 30 % 35-52 Automated erythrocyte mean corpuscular volume 96 [ foz_us] 80-99 Automated erythrocyte mean corpuscular h emoglobin (mass per erythrocyte) 29 pg 25-34 Automated erythrocyte mean corpuscular h emoglobin concentration measurement (mass/volume) 30 g/dL 32-36 Automated erythrocyte distribution width ratio 17. 2 % 10.0- 14.5 Automated blood platelet count (count/volume) 132 10*3/uL 130-400 Automated blood platelet mean volume measurement 10.6 [foz_us] 7.4-10.4 Automated blood neutrophils/100 leukocytes 79 % 42-75 Automated blood lymphocytes/100 leukocytes 10 % 12-44 Blood monocytes/100 leukocytes 9 % 0-12 Automated blood eosinophils/100 leukocytes 2 % 0-10 Automated blood basophils/100 leukocytes 0 % 0-10 Blood neutrophils automated count (number/volume) 4.7 10*3 1.8-7.8 Blood lymphocytes automated count (number/volume) 0.6 10*3 1.0-4.0 Blood monocytes automated count (number/volume) 0. 5 10*3 0.0-1.0 Automated eosinophil count 0.1 10*3/uL 0 .0-0.3 Automated blood basophil count (count/volume) 0.0 10*3/uL 0.0-0.1 Whole blood basic metabolic panel - 04/12 01/28 06:25 Serum or plasma sodium measurement (moles/volume) 141 mmol/L 135-145 Serum or plasma potassium measurement (moles/volume) 3.5 mmol/L 3.6-5.0 Serum or plasma chloride measurement (moles/volume) 98 mmol/L 98-107 Carbon dioxide 28 mmol/L 21-32 Serum or plasma anion gap determination (moles/volume) 15 mmol/L 5-14 Serum or plasma urea nitrogen measurement (mass/volume ) 33 mg/dL 7-18 Serum or plasma creatinine measurement (mass/volume) 1.60 mg/dL 0.60-1.30 Serum or plasma urea nitrogen/creatinine mass ratio 21 NRG Serum or plasma creatinine measurement w ith calculation of estimated glomerular filtration rate 39 NRG Serum or plasma glucose measurement (mass/volume) 110 mg/dL 70-105 Serum or plasma calcium measurement (mass/volume) 8.8 mg/dL 8.5-10.1 Complete urinalysis with reflex to cultu re - 05/09/19 15:25 Urine color determination YELLOW NRG Urine clarity determination SL CLOUDY N RG Urine pH measurement by test strip 6.5 5-9 Specific gravity of urine by test strip 1.015 1.016-1.022 Urine protein assay by test strip, semi-quantitative NEGATIVE NEGATIVE Urine glucose detection by automated test strip NE GATIVE NEGATIVE Erythrocytes detection in urine sediment by light micr oscopy NEGATIVE NEGATIVE Urine ketones detection by automated test strip NE GATIVE NEGATIVE Urine nitrite detection by test strip NEGATIVE NEGATIVE Urine total bilirubin detection by test strip NEGA TIVE NEGATIVE Urine urobilinogen measurement by automated test strip (mass/volume) 1.0 mg/dL < = 1.0 Urine leukocyte esterase detection by dipstick 1+ NEGATIVE Automated urine sediment erythrocyte cou nt by microscopy (number/high power field) NONE NRG Automated urine sediment leukocyte count by microscopy (number/high power field) [HPF] NRG Bacteria detection in urine sediment by light microsco py LARGE NRG Squamous epithelial cells detection in u rine sediment by light microscopy 0-2 NRG Crystals detection in urine sediment by light microsco py NONE NRG Casts detection in urine sediment by light microscopy NONE NRG Mucus detection in urine sediment by light microscopy NEGATIVE NRG Complete urinalysis with reflex to culture YES NRG Bacterial urine culture - 05/09/19 15:25 Bacterial urine culture [id number] NRG COLONY COUNT . NRG FTX;REPORTABLE PRELIM RAPID ID TEST AT [facility] 05/10 0 8:00 NRG FREE TEXT ENTRY 2 ID CONFIRMED BY RML N RG FREE TEXT ENTRY 3 RML SUSCEPTIBILITY REPORTED 04/13 1 10:05 NRG Dirithromycin susceptibility test by dis k diffusion - 05/09/19 15:25 Gentamicin susceptibility test by minimum inhibitory c oncentration <= NRG Trimethoprim/sulfamethoxazole susceptibi lity test by minimum inhibitoryconcentration <= NRG Levofloxacin susceptibility test by minimum inhibitory concentration <= NRG Ampicillin susceptibility test by minimum inhibitory c oncentration > NRG Cefazolin susceptibility test by minimum inhibitory co ncentration 2 NRG Ceftriaxone susceptibility test by minimum inhibitory concentration <= NRG Ciprofloxacin susceptibility test by minimum inhibitor y concentration <= NRG Meropenem susceptibility test by minimum inhibitory co ncentration <= NRG Nitrofurantoin susceptibility test by mi nimum inhibitory concentration <= NRG Amoxicillin and clavulanate potassium susc RADHA = NRG Complete blood count (CBC) with automate d white blood cell (WBC) differential - 05/17/19 09:40 Blood leukocytes automated count (number/volume) 6.6 10*3/uL 4.3-11.0 Blood erythrocytes automated count (number/volume) 3.55 10*6/uL 4.35-5.85 Venous blood hemoglobin measurement (mass/volume) 10.2 g/dL 11.5-16.0 Blood hematocrit (volume fraction) 34 % 35-52 Automated erythrocyte mean corpuscular volume 95 [ foz_us] 80-99 Automated erythrocyte mean corpuscular h emoglobin (mass per erythrocyte) 29 pg 25-34 Automated erythrocyte mean corpuscular h emoglobin concentration measurement (mass/volume) 30 g/dL 32-36 Automated erythrocyte distribution width ratio 16. 9 % 10.0- 14.5 Automated blood platelet count (count/volume) 255 10*3/uL 130-400 Automated blood platelet mean volume measurement 10.9 [foz_us] 7.4-10.4 Automated blood neutrophils/100 leukocytes 86 % 42-75 Automated blood lymphocytes/100 leukocytes 8 % 12-44 Blood monocytes/100 leukocytes 5 % 0-12 Automated blood eosinophils/100 leukocytes 1 % 0-10 Automated blood basophils/100 leukocytes 0 % 0-10 Blood neutrophils automated count (number/volume) 5.7 10*3 1.8-7.8 Blood lymphocytes automated count (number/volume) 0.5 10*3 1.0-4.0 Blood monocytes automated count (number/volume) 0. 3 10*3 0.0-1.0 Automated eosinophil count 0.1 10*3/uL 0 .0-0.3 Automated blood basophil count (count/volume) 0.0 10*3/uL 0.0-0.1 PT panel in platelet poor plasma by coag ulation assay - 05/17/19 09:40 Prothrombin time (PT) in platelet poor plasma by coagu lation assay 23.2 s 12.2-14.7 INR in platelet poor plasma or blood by coagulation as say 2.0 0.8-1.4 Activated partial thromboplastin time (a PTT) in platelet poor plasma bycoagulation assay - 05/17/19 09:40 Activated partial thromboplastin time (a PTT) in platelet poor plasma bycoagulation assay 37 s 24-35 Comprehensive metabolic panel - 05/17/19 09:40 Serum or plasma sodium measurement (moles/volume) 139 mmol/L 135-145 Serum or plasma potassium measurement (moles/volume) 4.8 mmol/L 3.6-5.0 Serum or plasma chloride measurement (moles/volume) 99 mmol/L 98-107 Carbon dioxide 22 mmol/L 21-32 Serum or plasma anion gap determination (moles/volume) 18 mmol/L 5-14 Serum or plasma urea nitrogen measurement (mass/volume ) 30 mg/dL 7-18 Serum or plasma creatinine measurement (mass/volume) 1.87 mg/dL 0.60-1.30 Serum or plasma urea nitrogen/creatinine mass ratio 16 NRG Serum or plasma creatinine measurement w ith calculation of estimated glomerular filtration rate 33 NRG Serum or plasma glucose measurement (mass/volume) 127 mg/dL 70-105 Serum or plasma calcium measurement (mass/volume) 9.5 mg/dL 8.5-10.1 Serum or plasma total bilirubin measurement (mass/volu me) 1.6 mg/dL 0.1-1.0 Serum or plasma alkaline phosphatase janine surement (enzymatic activity/volume) 86 U/L 40-136 Serum or plasma aspartate aminotransfera se measurement (enzymatic activity/volume) 45 U/L 5-34 Serum or plasma alanine aminotransferase measurement (enzymatic activity/volume) 32 U/L 0-55 Serum or plasma protein measurement (mass/volume) 7.4 g/dL 6.4-8.2 Serum or plasma albumin measurement (mass/volume) 4.3 g/dL 3.2-4.5 CALCIUM CORRECTED 9.3 mg/dL 8.5-10.1 Magnesium - 05/17/19 09:40 Magnesium 2.1 mg/dL 1.6-2.4 Myoglobin, serum - 05/17/19 09:40 Myoglobin, serum 158.7 ng/mL 10.0-92.0 Serum or plasma troponin i.cardiac measu rement (mass/volume) - 05/17/19 09:40 Serum or plasma troponin i.cardiac measurement (mass/v olume) 0.062 ng/mL <0.028 Lipase - 05/17/19 09:40 Lipase 24 U/L 8-78 Serum or plasma lithium measurement (mol es/volume) - 05/17/19 09:40 BNP PT 1027.5 pg/mL <100.0 Manual absolute plasma cell count - 10/29 09:40 Blood monocytes/100 leukocytes 4 % NRG Manual blood segmented neutrophils/100 leukocytes 85 % NRG Blood band neutrophils/100 leukocytes 2 % NRG Manual blood lymphocytes/100 leukocytes 6 % NRG Manual eosinophils/100 leukocytes in nose 2 % NRG Manual blood basophils/100 leukocytes 1 % NRG Blood anisocytosis detection by light microscopy S LIGHT NRG Blood ovalocytes detection by light microscopy SLI GHT NRG Blood poikilocytosis detection by light microscopy SLIGHT NRG Complete blood count (CBC) with automate d white blood cell (WBC) differential - 05/18/19 05:45 Blood leukocytes automated count (number/volume) 5.3 10*3/uL 4.3-11.0 Blood erythrocytes automated count (number/volume) 3.23 10*6/uL 4.35-5.85 Venous blood hemoglobin measurement (mass/volume) 9.1 g/dL 11.5-16.0 Blood hematocrit (volume fraction) 31 % 35-52 Automated erythrocyte mean corpuscular volume 94 [ foz_us] 80-99 Automated erythrocyte mean corpuscular h emoglobin (mass per erythrocyte) 28 pg 25-34 Automated erythrocyte mean corpuscular h emoglobin concentration measurement (mass/volume) 30 g/dL 32-36 Automated erythrocyte distribution width ratio 16. 1 % 10.0- 14.5 Automated blood platelet count (count/volume) 203 10*3/uL 130-400 Automated blood platelet mean volume measurement 10.5 [foz_us] 7.4-10.4 Automated blood neutrophils/100 leukocytes 78 % 42-75 Automated blood lymphocytes/100 leukocytes 11 % 12-44 Blood monocytes/100 leukocytes 9 % 0-12 Automated blood eosinophils/100 leukocytes 2 % 0-10 Automated blood basophils/100 leukocytes 0 % 0-10 Blood neutrophils automated count (number/volume) 4.1 10*3 1.8-7.8 Blood lymphocytes automated count (number/volume) 0.6 10*3 1.0-4.0 Blood monocytes automated count (number/volume) 0. 5 10*3 0.0-1.0 Automated eosinophil count 0.1 10*3/uL 0 .0-0.3 Automated blood basophil count (count/volume) 0.0 10*3/uL 0.0-0.1 Comprehensive metabolic panel - 05/18/19 05:45 Serum or plasma sodium measurement (moles/volume) 139 mmol/L 135-145 Serum or plasma potassium measurement (moles/volume) 3.4 mmol/L 3.6-5.0 Serum or plasma chloride measurement (moles/volume) 97 mmol/L 98-107 Carbon dioxide 28 mmol/L 21-32 Serum or plasma anion gap determination (moles/volume) 14 mmol/L 5-14 Serum or plasma urea nitrogen measurement (mass/volume ) 35 mg/dL 7-18 Serum or plasma creatinine measurement (mass/volume) 1.95 mg/dL 0.60-1.30 Serum or plasma urea nitrogen/creatinine mass ratio 18 NRG Serum or plasma creatinine measurement w ith calculation of estimated glomerular filtration rate 31 NRG Serum or plasma glucose measurement (mass/volume) 100 mg/dL 70-105 Serum or plasma calcium measurement (mass/volume) 9.4 mg/dL 8.5-10.1 Serum or plasma total bilirubin measurement (mass/volu me) 1.3 mg/dL 0.1-1.0 Serum or plasma alkaline phosphatase janine surement (enzymatic activity/volume) 78 U/L 40-136 Serum or plasma aspartate aminotransfera se measurement (enzymatic activity/volume) 22 U/L 5-34 Serum or plasma alanine aminotransferase measurement (enzymatic activity/volume) 25 U/L 0-55 Serum or plasma protein measurement (mass/volume) 6.6 g/dL 6.4-8.2 Serum or plasma albumin measurement (mass/volume) 3.7 g/dL 3.2-4.5 CALCIUM CORRECTED 9.6 mg/dL 8.5-10.1 Magnesium - 05/18/19 05:45 Magnesium 2.1 mg/dL 1.6-2.4 Lipid 1996 panel - 05/18/19 05:45 Serum or plasma triglyceride measurement (mass/volume) 66 mg/dL <150 Serum or plasma cholesterol measurement (mass/volume) 127 mg/dL < 200 Serum or plasma cholesterol in HDL measurement (mass/v olume) 40 mg/dL 40-60 Cholesterol in LDL [mass/volume] in serum or plasma by direct assay 83 mg/dL 1-129 Serum or plasma cholesterol in VLDL measurement (mass/ volume) 13 mg/dL 5-40 Automated blood complete blood count (he mogram) panel - 05/19/19 06:25 Blood leukocytes automated count (number/volume) 4.3 10*3/uL 4.3-11.0 Blood erythrocytes automated count (number/volume) 3.25 10*6/uL 4.35-5.85 Venous blood hemoglobin measurement (mass/volume) 9.2 g/dL 11.5-16.0 Blood hematocrit (volume fraction) 31 % 35-52 Automated erythrocyte mean corpuscular volume 94 [ foz_us] 80-99 Automated erythrocyte mean corpuscular h emoglobin (mass per erythrocyte) 28 pg 25-34 Automated erythrocyte mean corpuscular h emoglobin concentration measurement (mass/volume) 30 g/dL 32-36 Automated erythrocyte distribution width ratio 16. 1 % 10.0- 14.5 Automated blood platelet count (count/volume) 228 10*3/uL 130-400 Automated blood platelet mean volume measurement 10.6 [foz_us] 7.4-10.4 Whole blood basic metabolic panel - 12/29 06:25 Serum or plasma sodium measurement (moles/volume) 141 mmol/L 135-145 Serum or plasma potassium measurement (moles/volume) 4.2 mmol/L 3.6-5.0 Serum or plasma chloride measurement (moles/volume) 100 mmol/L 98-107 Carbon dioxide 27 mmol/L 21-32 Serum or plasma anion gap determination (moles/volume) 14 mmol/L 5-14 Serum or plasma urea nitrogen measurement (mass/volume ) 34 mg/dL 7-18 Serum or plasma creatinine measurement (mass/volume) 1.92 mg/dL 0.60-1.30 Serum or plasma urea nitrogen/creatinine mass ratio 18 NRG Serum or plasma creatinine measurement w ith calculation of estimated glomerular filtration rate 32 NRG Serum or plasma glucose measurement (mass/volume) 100 mg/dL 70-105 Serum or plasma calcium measurement (mass/volume) 9.2 mg/dL 8.5-10.1 Magnesium - 05/19/19 06:25 Magnesium 2.3 mg/dL 1.6-2.4 Bacterial blood culture - 05/24/19 11:14 Bacterial blood culture NG NRG Complete blood count (CBC) with automate d white blood cell (WBC) differential - 05/24/19 11:19 Blood leukocytes automated count (number/volume) 6.7 10*3/uL 4.3-11.0 Blood erythrocytes automated count (number/volume) 3.35 10*6/uL 4.35-5.85 Venous blood hemoglobin measurement (mass/volume) 9.3 g/dL 11.5-16.0 Blood hematocrit (volume fraction) 32 % 35-52 Automated erythrocyte mean corpuscular volume 94 [ foz_us] 80-99 Automated erythrocyte mean corpuscular h emoglobin (mass per erythrocyte) 28 pg 25-34 Automated erythrocyte mean corpuscular h emoglobin concentration measurement (mass/volume) 30 g/dL 32-36 Automated erythrocyte distribution width ratio 15. 9 % 10.0- 14.5 Automated blood platelet count (count/volume) 302 10*3/uL 130-400 Automated blood platelet mean volume measurement 10.5 [foz_us] 7.4-10.4 Automated blood neutrophils/100 leukocytes 82 % 42-75 Automated blood lymphocytes/100 leukocytes 6 % 12-44 Blood monocytes/100 leukocytes 12 % 0-12 Automated blood eosinophils/100 leukocytes 0 % 0-10 Automated blood basophils/100 leukocytes 0 % 0-10 Blood neutrophils automated count (number/volume) 5.5 10*3 1.8-7.8 Blood lymphocytes automated count (number/volume) 0.4 10*3 1.0-4.0 Blood monocytes automated count (number/volume) 0. 8 10*3 0.0-1.0 Automated eosinophil count 0.0 10*3/uL 0 .0-0.3 Automated blood basophil count (count/volume) 0.0 10*3/uL 0.0-0.1 PT panel in platelet poor plasma by coag ulation assay - 05/24/19 11:19 Prothrombin time (PT) in platelet poor plasma by coagu lation assay 20.8 s 12.2-14.7 INR in platelet poor plasma or blood by coagulation as say 1.7 0.8-1.4 Activated partial thromboplastin time (a PTT) in platelet poor plasma bycoagulation assay - 05/24/19 11:19 Activated partial thromboplastin time (a PTT) in platelet poor plasma bycoagulation assay 34 s 24-35 Comprehensive metabolic panel - 05/24/19 11:19 Serum or plasma sodium measurement (moles/volume) 139 mmol/L 135-145 Serum or plasma potassium measurement (moles/volume) 4.2 mmol/L 3.6-5.0 Serum or plasma chloride measurement (moles/volume) 100 mmol/L 98-107 Carbon dioxide 26 mmol/L 21-32 Serum or plasma anion gap determination (moles/volume) 13 mmol/L 5-14 Serum or plasma urea nitrogen measurement (mass/volume ) 37 mg/dL 7-18 Serum or plasma creatinine measurement (mass/volume) 1.91 mg/dL 0.60-1.30 Serum or plasma urea nitrogen/creatinine mass ratio 19 NRG Serum or plasma creatinine measurement w ith calculation of estimated glomerular filtration rate 32 NRG Serum or plasma glucose measurement (mass/volume) 110 mg/dL 70-105 Serum or plasma calcium measurement (mass/volume) 9.5 mg/dL 8.5-10.1 Serum or plasma total bilirubin measurement (mass/volu me) 1.0 mg/dL 0.1-1.0 Serum or plasma alkaline phosphatase janine surement (enzymatic activity/volume) 95 U/L 40-136 Serum or plasma aspartate aminotransfera se measurement (enzymatic activity/volume) 26 U/L 5-34 Serum or plasma alanine aminotransferase measurement (enzymatic activity/volume) 26 U/L 0-55 Serum or plasma protein measurement (mass/volume) 6.9 g/dL 6.4-8.2 Serum or plasma albumin measurement (mass/volume) 3.8 g/dL 3.2-4.5 CALCIUM CORRECTED 9.7 mg/dL 8.5-10.1 Magnesium - 05/24/19 11:19 Magnesium 2.2 mg/dL 1.6-2.4 Serum or plasma creatine kinase measurem ent (enzymatic activity/volume) - 05/24/19 11:19 Serum or plasma creatine kinase measurem ent (enzymatic activity/volume) 111 U/L 29-168 Myoglobin, serum - 05/24/19 11:19 Myoglobin, serum 153.0 ng/mL 10.0-92.0 Serum or plasma creatine kinase MB measu rement (enzymatic activity/volume) - 05/24/19 11:19 Serum or plasma creatine kinase MB measu rement (enzymatic activity/volume) 3.2 ng/mL <6.6 Serum or plasma lithium measurement (mol es/volume) - 05/24/19 11:19 BNP PT 1182.2 pg/mL <100.0 Serum or plasma troponin i.cardiac measu rement (mass/volume) - 05/24/19 11:19 Serum or plasma troponin i.cardiac measurement (mass/v olume) 0.061 ng/mL <0.028 Manual absolute plasma cell count - 05/12 07/29 11:19 Blood monocytes/100 leukocytes 10 % NRG Manual blood segmented neutrophils/100 leukocytes 82 % NRG Manual blood lymphocytes/100 leukocytes 8 % NRG Manual eosinophils/100 leukocytes in nose 0 % NRG Manual blood basophils/100 leukocytes 0 % NRG Blood anisocytosis detection by light microscopy S LIGHT NRG Blood ovalocytes detection by light microscopy [facility] NR Blood poikilocytosis detection by light microscopy SLIGHT NRG Blood hypochromia detection by light microscopy [facility] NRG Blood dacrocytes detection by light microscopy [facility] NRG Bacterial blood culture - 05/24/19 11:33 Bacterial blood culture NG NR Complete urinalysis with reflex to cultu re - 05/24/19 12:34 Urine color determination YELLOW NRG Urine clarity determination CLEAR NR G Urine pH measurement by test strip 5.5 5-9 Specific gravity of urine by test strip 1.015 1.016-1.022 Urine protein assay by test strip, semi-quantitative NEGATIVE NEGATIVE Urine glucose detection by automated test strip NE GATIVE NEGATIVE Erythrocytes detection in urine sediment by light micr oscopy NEGATIVE NEGATIVE Urine ketones detection by automated test strip NE GATIVE NEGATIVE Urine nitrite detection by test strip NEGATIVE NEGATIVE Urine total bilirubin detection by test strip NEGA TIVE NEGATIVE Urine urobilinogen measurement by automated test strip (mass/volume) 0.2 mg/dL < = 1.0 Urine leukocyte esterase detection by dipstick TRA CE NEGATIVE Automated urine sediment erythrocyte cou nt by microscopy (number/high power field) RARE NRG Automated urine sediment leukocyte count by microscopy (number/high power field) [HPF] NRG Bacteria detection in urine sediment by light microsco py MODERATE NRG Squamous epithelial cells detection in u rine sediment by light microscopy RARE NRG Crystals detection in urine sediment by light microsco py PRESENT NRG Casts detection in urine sediment by light microscopy NONE NRG Mucus detection in urine sediment by light microscopy NEGATIVE NRG Complete urinalysis with reflex to culture YES NRG Amorphous sediment detection in urine sediment by ligh t microscopy MOD LEROY URATES NRG Influenza virus A and B antigen detectio n - 05/24/19 12:34 FLU RESULT NEGATIVE FOR INFLUENZA A AND B ANTIGENS BY IA NRG Bacterial urine culture - 05/24/19 12:34 Bacterial urine culture [id number] NRG COLONY COUNT >100,000/ML NRG FREE TEXT ENTRY 2 PRELIM RAPID ID TEST AT [facility] 05/25 7:45 NRG FREE TEXT ENTRY 3 RML CONFIRMED ID 05/25/19 14:05 NRG Serum or plasma troponin i.cardiac measu rement (mass/volume) - 05/24/19 15:40 Serum or plasma troponin i.cardiac measurement (mass/v olume) 0.069 ng/mL <0.028 Complete blood count (CBC) with automate d white blood cell (WBC) differential - 05/25/19 04:40 Blood leukocytes automated count (number/volume) 6.7 10*3/uL 4.3-11.0 Blood erythrocytes automated count (number/volume) 3.18 10*6/uL 4.35-5.85 Venous blood hemoglobin measurement (mass/volume) 8.8 g/dL 11.5-16.0 Blood hematocrit (volume fraction) 30 % 35-52 Automated erythrocyte mean corpuscular volume 94 [ foz_us] 80-99 Automated erythrocyte mean corpuscular h emoglobin (mass per erythrocyte) 28 pg 25-34 Automated erythrocyte mean corpuscular h emoglobin concentration measurement (mass/volume) 30 g/dL 32-36 Automated erythrocyte distribution width ratio 16. 2 % 10.0- 14.5 Automated blood platelet count (count/volume) 298 10*3/uL 130-400 Automated blood platelet mean volume measurement 10.5 [foz_us] 7.4-10.4 Automated blood neutrophils/100 leukocytes 78 % 42-75 Automated blood lymphocytes/100 leukocytes 8 % 12-44 Blood monocytes/100 leukocytes 13 % 0-12 Automated blood eosinophils/100 leukocytes 1 % 0-10 Automated blood basophils/100 leukocytes 0 % 0-10 Blood neutrophils automated count (number/volume) 5.2 10*3 1.8-7.8 Blood lymphocytes automated count (number/volume) 0.5 10*3 1.0-4.0 Blood monocytes automated count (number/volume) 0. 9 10*3 0.0-1.0 Automated eosinophil count 0.0 10*3/uL 0 .0-0.3 Automated blood basophil count (count/volume) 0.0 10*3/uL 0.0-0.1 Comprehensive metabolic panel - 05/25/19 04:40 Serum or plasma sodium measurement (moles/volume) 141 mmol/L 135-145 Serum or plasma potassium measurement (moles/volume) 4.0 mmol/L 3.6-5.0 Serum or plasma chloride measurement (moles/volume) 99 mmol/L 98-107 Carbon dioxide 28 mmol/L 21-32 Serum or plasma anion gap determination (moles/volume) 14 mmol/L 5-14 Serum or plasma urea nitrogen measurement (mass/volume ) 33 mg/dL 7-18 Serum or plasma creatinine measurement (mass/volume) 1.75 mg/dL 0.60-1.30 Serum or plasma urea nitrogen/creatinine mass ratio 19 NRG Serum or plasma creatinine measurement w ith calculation of estimated glomerular filtration rate 35 NRG Serum or plasma glucose measurement (mass/volume) 103 mg/dL 70-105 Serum or plasma calcium measurement (mass/volume) 9.4 mg/dL 8.5-10.1 Serum or plasma total bilirubin measurement (mass/volu me) 1.1 mg/dL 0.1-1.0 Serum or plasma alkaline phosphatase janine surement (enzymatic activity/volume) 73 U/L 40-136 Serum or plasma aspartate aminotransfera se measurement (enzymatic activity/volume) 22 U/L 5-34 Serum or plasma alanine aminotransferase measurement (enzymatic activity/volume) 24 U/L 0-55 Serum or plasma protein measurement (mass/volume) 6.6 g/dL 6.4-8.2 Serum or plasma albumin measurement (mass/volume) 3.7 g/dL 3.2-4.5 CALCIUM CORRECTED 9.6 mg/dL 8.5-10.1 Serum or plasma lithium measurement (mol es/volume) - 05/25/19 04:40 BNP PT 961.9 pg/mL <100.0 Methicillin resistant Staphylococcus aur eus (MRSA) screening culture - 05/25/19 18:09 Methicillin resistant Staphylococcus aureus (MRSA) scr eening culture NEG NRG Automated blood complete blood count (he mogram) panel - 05/26/19 04:04 Blood leukocytes automated count (number/volume) 7.2 10*3/uL 4.3-11.0 Blood erythrocytes automated count (number/volume) 3.21 10*6/uL 4.35-5.85 Venous blood hemoglobin measurement (mass/volume) 8.9 g/dL 11.5-16.0 Blood hematocrit (volume fraction) 30 % 35-52 Automated erythrocyte mean corpuscular volume 93 [ foz_us] 80-99 Automated erythrocyte mean corpuscular h emoglobin (mass per erythrocyte) 28 pg 25-34 Automated erythrocyte mean corpuscular h emoglobin concentration measurement (mass/volume) 30 g/dL 32-36 Automated erythrocyte distribution width ratio 16. 1 % 10.0- 14.5 Automated blood platelet count (count/volume) 271 10*3/uL 130-400 Automated blood platelet mean volume measurement 10.6 [foz_us] 7.4-10.4 Whole blood basic metabolic panel - 05/12 09/28 04:04 Serum or plasma sodium measurement (moles/volume) 138 mmol/L 135-145 Serum or plasma potassium measurement (moles/volume) 4.4 mmol/L 3.6-5.0 Serum or plasma chloride measurement (moles/volume) 98 mmol/L 98-107 Carbon dioxide 27 mmol/L 21-32 Serum or plasma anion gap determination (moles/volume) 13 mmol/L 5-14 Serum or plasma urea nitrogen measurement (mass/volume ) 30 mg/dL 7-18 Serum or plasma creatinine measurement (mass/volume) 1.73 mg/dL 0.60-1.30 Serum or plasma urea nitrogen/creatinine mass ratio 17 NRG Serum or plasma creatinine measurement w ith calculation of estimated glomerular filtration rate 36 NRG Serum or plasma glucose measurement (mass/volume) 102 mg/dL 70-105 Serum or plasma calcium measurement (mass/volume) 9.1 mg/dL 8.5-10.1 Magnesium - 05/26/19 04:04 Magnesium 2.4 mg/dL 1.6-2.4 Blood lactic acid measurement (moles/vol ume) - 05/29/19 12:40 Blood lactic acid measurement (moles/volume) 2.28 mmol/L 0.50-2.00 Comprehensive metabolic panel - 05/29/19 12:40 Serum or plasma sodium measurement (moles/volume) 137 mmol/L 135-145 Serum or plasma potassium measurement (moles/volume) 5.0 mmol/L 3.6-5.0 Serum or plasma chloride measurement (moles/volume) 96 mmol/L 98-107 Carbon dioxide 26 mmol/L 21-32 Serum or plasma anion gap determination (moles/volume) 15 mmol/L 5-14 Serum or plasma urea nitrogen measurement (mass/volume ) 31 mg/dL 7-18 Serum or plasma creatinine measurement (mass/volume) 1.80 mg/dL 0.60-1.30 Serum or plasma urea nitrogen/creatinine mass ratio 17 NRG Serum or plasma creatinine measurement w ith calculation of estimated glomerular filtration rate 34 NRG Serum or plasma glucose measurement (mass/volume) 123 mg/dL 70-105 Serum or plasma calcium measurement (mass/volume) 9.6 mg/dL 8.5-10.1 Serum or plasma total bilirubin measurement (mass/volu me) 1.5 mg/dL 0.1-1.0 Serum or plasma alkaline phosphatase janine surement (enzymatic activity/volume) 71 U/L 40-136 Serum or plasma aspartate aminotransfera se measurement (enzymatic activity/volume) 24 U/L 5-34 Serum or plasma alanine aminotransferase measurement (enzymatic activity/volume) 26 U/L 0-55 Serum or plasma protein measurement (mass/volume) 7.5 g/dL 6.4-8.2 Serum or plasma albumin measurement (mass/volume) 3.8 g/dL 3.2-4.5 CALCIUM CORRECTED 9.8 mg/dL 8.5-10.1 Magnesium - 05/29/19 12:40 Magnesium 2.4 mg/dL 1.6-2.4 Complete blood count (CBC) with automate d white blood cell (WBC) differential - 05/29/19 12:40 Blood leukocytes automated count (number/volume) 10.4 10*3/uL 4.3-11.0 Blood erythrocytes automated count (number/volume) 3.55 10*6/uL 4.35-5.85 Venous blood hemoglobin measurement (mass/volume) 9.6 g/dL 11.5-16.0 Blood hematocrit (volume fraction) 33 % 35-52 Automated erythrocyte mean corpuscular volume 92 [ foz_us] 80-99 Automated erythrocyte mean corpuscular h emoglobin (mass per erythrocyte) 27 pg 25-34 Automated erythrocyte mean corpuscular h emoglobin concentration measurement (mass/volume) 30 g/dL 32-36 Automated erythrocyte distribution width ratio 16. 2 % 10.0- 14.5 Automated blood platelet count (count/volume) 320 10*3/uL 130-400 Automated blood platelet mean volume measurement 10.5 [foz_us] 7.4-10.4 Automated blood neutrophils/100 leukocytes 82 % 42-75 Automated blood lymphocytes/100 leukocytes 5 % 12-44 Blood monocytes/100 leukocytes 13 % 0-12 Automated blood eosinophils/100 leukocytes 1 % 0-10 Automated blood basophils/100 leukocytes 0 % 0-10 Blood neutrophils automated count (number/volume) 8.5 10*3 1.8-7.8 Blood lymphocytes automated count (number/volume) 0.5 10*3 1.0-4.0 Blood monocytes automated count (number/volume) 1. 3 10*3 0.0-1.0 Automated eosinophil count 0.1 10*3/uL 0 .0-0.3 Automated blood basophil count (count/volume) 0.0 10*3/uL 0.0-0.1 PT panel in platelet poor plasma by coag ulation assay - 05/29/19 12:40 Prothrombin time (PT) in platelet poor plasma by coagu lation assay 27.4 s 12.2-14.7 INR in platelet poor plasma or blood by coagulation as say 2.4 0.8-1.4 Activated partial thromboplastin time (a PTT) in platelet poor plasma bycoagulation assay - 05/29/19 12:40 Activated partial thromboplastin time (a PTT) in platelet poor plasma bycoagulation assay 44 s 24-35 Manual absolute plasma cell count - 05/12 12/29 12:40 Blood monocytes/100 leukocytes 20 % NRG Manual blood segmented neutrophils/100 leukocytes 78 % NRG Manual blood lymphocytes/100 leukocytes 2 % NRG Blood erythrocyte morphology finding identification N NRG Myoglobin, serum - 05/29/19 12:40 Myoglobin, serum 132.6 ng/mL 10.0-92.0 Serum or plasma troponin i.cardiac measu rement (mass/volume) - 05/29/19 12:40 Serum or plasma troponin i.cardiac measurement (mass/v olume) 0.052 ng/mL <0.028 Serum or plasma lithium measurement (mol es/volume) - 05/29/19 12:40 BNP PT 1697.2 pg/mL <100.0 Bacterial blood culture - 05/29/19 12:40 Bacterial blood culture NG NRG Complete urinalysis with reflex to cultu re - 05/29/19 13:05 Urine color determination YELLOW NRG Urine clarity determination CLEAR NR G Urine pH measurement by test strip 7.0 5-9 Specific gravity of urine by test strip 1.010 1.016-1.022 Urine protein assay by test strip, semi-quantitative NEGATIVE NEGATIVE Urine glucose detection by automated test strip NE GATIVE NEGATIVE Erythrocytes detection in urine sediment by light micr oscopy NEGATIVE NEGATIVE Urine ketones detection by automated test strip NE GATIVE NEGATIVE Urine nitrite detection by test strip NEGATIVE NEGATIVE Urine total bilirubin detection by test strip NEGA TIVE NEGATIVE Urine urobilinogen measurement by automated test strip (mass/volume) 1.0 mg/dL < = 1.0 Urine leukocyte esterase detection by dipstick NEG ATIVE NEGATIVE Automated urine sediment erythrocyte cou nt by microscopy (number/high power field) NONE NRG Automated urine sediment leukocyte count by microscopy (number/high power field) NONE NRG Bacteria detection in urine sediment by light microsco py TRACE NRG Squamous epithelial cells detection in u rine sediment by light microscopy 2-5 NRG Crystals detection in urine sediment by light microsco py NONE NRG Casts detection in urine sediment by light microscopy NONE NRG Mucus detection in urine sediment by light microscopy NEGATIVE NRG Complete urinalysis with reflex to culture NO NRG Renal epithelial cells detection in urin e sediment by light microscopy NONE NRG Serum or plasma lactate measurement (mol es/volume) - 05/29/19 14:14 Serum or plasma lactate measurement (moles/volume) 1.37 mmol/L 0.50-2.00 Bacterial blood culture - 05/29/19 14:14 Bacterial blood culture NG NRG Complete blood count (CBC) with automate d white blood cell (WBC) differential - 05/30/19 04:24 Blood leukocytes automated count (number/volume) 8.9 10*3/uL 4.3-11.0 Blood erythrocytes automated count (number/volume) 3.10 10*6/uL 4.35-5.85 Venous blood hemoglobin measurement (mass/volume) 8.5 g/dL 11.5-16.0 Blood hematocrit (volume fraction) 28 % 35-52 Automated erythrocyte mean corpuscular volume 92 [ foz_us] 80-99 Automated erythrocyte mean corpuscular h emoglobin (mass per erythrocyte) 27 pg 25-34 Automated erythrocyte mean corpuscular h emoglobin concentration measurement (mass/volume) 30 g/dL 32-36 Automated erythrocyte distribution width ratio 15. 9 % 10.0- 14.5 Automated blood platelet count (count/volume) 268 10*3/uL 130-400 Automated blood platelet mean volume measurement 10.8 [foz_us] 7.4-10.4 Automated blood neutrophils/100 leukocytes 82 % 42-75 Automated blood lymphocytes/100 leukocytes 5 % 12-44 Blood monocytes/100 leukocytes 13 % 0-12 Automated blood eosinophils/100 leukocytes 1 % 0-10 Automated blood basophils/100 leukocytes 0 % 0-10 Blood neutrophils automated count (number/volume) 7.3 10*3 1.8-7.8 Blood lymphocytes automated count (number/volume) 0.5 10*3 1.0-4.0 Blood monocytes automated count (number/volume) 1. 1 10*3 0.0-1.0 Automated eosinophil count 0.1 10*3/uL 0 .0-0.3 Automated blood basophil count (count/volume) 0.0 10*3/uL 0.0-0.1 Comprehensive metabolic panel - 05/30/19 04:24 Serum or plasma sodium measurement (moles/volume) 138 mmol/L 135-145 Serum or plasma potassium measurement (moles/volume) 4.3 mmol/L 3.6-5.0 Serum or plasma chloride measurement (moles/volume) 97 mmol/L 98-107 Carbon dioxide 28 mmol/L 21-32 Serum or plasma anion gap determination (moles/volume) 13 mmol/L 5-14 Serum or plasma urea nitrogen measurement (mass/volume ) 29 mg/dL 7-18 Serum or plasma creatinine measurement (mass/volume) 1.67 mg/dL 0.60-1.30 Serum or plasma urea nitrogen/creatinine mass ratio 17 NRG Serum or plasma creatinine measurement w ith calculation of estimated glomerular filtration rate 37 NRG Serum or plasma glucose measurement (mass/volume) 88 mg/dL 70-105 Serum or plasma calcium measurement (mass/volume) 9.0 mg/dL 8.5-10.1 Serum or plasma total bilirubin measurement (mass/volu me) 1.3 mg/dL 0.1-1.0 Serum or plasma alkaline phosphatase janine surement (enzymatic activity/volume) 60 U/L 40-136 Serum or plasma aspartate aminotransfera se measurement (enzymatic activity/volume) 19 U/L 5-34 Serum or plasma alanine aminotransferase measurement (enzymatic activity/volume) 16 U/L 0-55 Serum or plasma protein measurement (mass/volume) 6.6 g/dL 6.4-8.2 Serum or plasma albumin measurement (mass/volume) 3.3 g/dL 3.2-4.5 CALCIUM CORRECTED 9.6 mg/dL 8.5-10.1 Lipid 1996 panel - 05/30/19 04:24 Serum or plasma triglyceride measurement (mass/volume) 54 mg/dL <150 Serum or plasma cholesterol measurement (mass/volume) 105 mg/dL < 200 Serum or plasma cholesterol in HDL measurement (mass/v olume) 32 mg/dL 40-60 Cholesterol in LDL [mass/volume] in serum or plasma by direct assay 61 mg/dL 1-129 Serum or plasma cholesterol in VLDL measurement (mass/ volume) 11 mg/dL 5-40 PROCALCITONIN (PCT) - 05/30/19 04:24 PROCALCITONIN (PCT) 0.15 ng/mL <0.10 Whole blood hemoglobin and hematocrit pa daniel - 05/31/19 07:25 Venous blood hemoglobin measurement (mass/volume) 8.8 g/dL 11.5-16.0 Blood hematocrit (volume fraction) 30 % 35-52 Whole blood basic metabolic panel - 05/13 07:25 Serum or plasma sodium measurement (moles/volume) 141 mmol/L 135-145 Serum or plasma potassium measurement (moles/volume) 4.2 mmol/L 3.6-5.0 Serum or plasma chloride measurement (moles/volume) 97 mmol/L 98-107 Carbon dioxide 31 mmol/L 21-32 Serum or plasma anion gap determination (moles/volume) 13 mmol/L 5-14 Serum or plasma urea nitrogen measurement (mass/volume ) 24 mg/dL 7-18 Serum or plasma creatinine measurement (mass/volume) 1.65 mg/dL 0.60-1.30 Serum or plasma urea nitrogen/creatinine mass ratio 15 NRG Serum or plasma creatinine measurement w ith calculation of estimated glomerular filtration rate 38 NRG Serum or plasma glucose measurement (mass/volume) 104 mg/dL 70-105 Serum or plasma calcium measurement (mass/volume) 9.2 mg/dL 8.5-10.1 Magnesium - 05/31/19 07:25 Magnesium 2.3 mg/dL 1.6-2.4 PROCALCITONIN (PCT) - 05/31/19 07:25 PROCALCITONIN (PCT) 0.13 ng/mL <0.10 Whole blood basic metabolic panel - 05/13 05/31 05:25 Serum or plasma sodium measurement (moles/volume) 139 mmol/L 135-145 Serum or plasma potassium measurement (moles/volume) 3.8 mmol/L 3.6-5.0 Serum or plasma chloride measurement (moles/volume) 97 mmol/L 98-107 Carbon dioxide 31 mmol/L 21-32 Serum or plasma anion gap determination (moles/volume) 11 mmol/L 5-14 Serum or plasma urea nitrogen measurement (mass/volume ) 24 mg/dL 7-18 Serum or plasma creatinine measurement (mass/volume) 1.48 mg/dL 0.60-1.30 Serum or plasma urea nitrogen/creatinine mass ratio 16 NRG Serum or plasma creatinine measurement w ith calculation of estimated glomerular filtration rate 43 NRG Serum or plasma glucose measurement (mass/volume) 103 mg/dL 70-105 Serum or plasma calcium measurement (mass/volume) 8.9 mg/dL 8.5-10.1 Serum or plasma lithium measurement (mol es/volume) - 06/01/19 05:36 BNP PT 1053.3 pg/mL <100.0 Whole blood basic metabolic panel - 05/13 07/01 04:30 Serum or plasma sodium measurement (moles/volume) 138 mmol/L 135-145 Serum or plasma potassium measurement (moles/volume) 4.4 mmol/L 3.6-5.0 Serum or plasma chloride measurement (moles/volume) 96 mmol/L 98-107 Carbon dioxide 29 mmol/L 21-32 Serum or plasma anion gap determination (moles/volume) 13 mmol/L 5-14 Serum or plasma urea nitrogen measurement (mass/volume ) 27 mg/dL 7-18 Serum or plasma creatinine measurement (mass/volume) 1.66 mg/dL 0.60-1.30 Serum or plasma urea nitrogen/creatinine mass ratio 16 NRG Serum or plasma creatinine measurement w ith calculation of estimated glomerular filtration rate 37 NRG Serum or plasma glucose measurement (mass/volume) 103 mg/dL 70-105 Serum or plasma calcium measurement (mass/volume) 9.2 mg/dL 8.5-10.1 Comprehensive metabolic panel - 06/12/19 19:22 Serum or plasma sodium measurement (moles/volume) 138 mmol/L 135-145 Serum or plasma potassium measurement (moles/volume) 4.0 mmol/L 3.6-5.0 Serum or plasma chloride measurement (moles/volume) 97 mmol/L 98-107 Carbon dioxide 28 mmol/L 21-32 Serum or plasma anion gap determination (moles/volume) 13 mmol/L 5-14 Serum or plasma urea nitrogen measurement (mass/volume ) 32 mg/dL 7-18 Serum or plasma creatinine measurement (mass/volume) 2.06 mg/dL 0.60-1.30 Serum or plasma urea nitrogen/creatinine mass ratio 16 NRG Serum or plasma creatinine measurement w ith calculation of estimated glomerular filtration rate 29 NRG Serum or plasma glucose measurement (mass/volume) 112 mg/dL 70-105 Serum or plasma calcium measurement (mass/volume) 9.8 mg/dL 8.5-10.1 Serum or plasma total bilirubin measurement (mass/volu me) 0.6 mg/dL 0.1-1.0 Serum or plasma alkaline phosphatase janine surement (enzymatic activity/volume) 69 U/L 40-136 Serum or plasma aspartate aminotransfera se measurement (enzymatic activity/volume) 23 U/L 5-34 Serum or plasma alanine aminotransferase measurement (enzymatic activity/volume) 23 U/L 0-55 Serum or plasma protein measurement (mass/volume) 7.7 g/dL 6.4-8.2 Serum or plasma albumin measurement (mass/volume) 3.9 g/dL 3.2-4.5 CALCIUM CORRECTED 9.9 mg/dL 8.5-10.1 Magnesium - 06/12/19 19:22 Magnesium 2.0 mg/dL 1.6-2.4 Serum or plasma troponin i.cardiac measu rement (mass/volume) - 06/12/19 19:22 Serum or plasma troponin i.cardiac measurement (mass/v olume) 0.048 ng/mL <0.028 Myoglobin, serum - 06/12/19 19:22 Myoglobin, serum 102.6 ng/mL 10.0-92.0 Complete blood count (CBC) with automate d white blood cell (WBC) differential - 06/12/19 19:30 Blood leukocytes automated count (number/volume) 6.6 10*3/uL 4.3-11.0 Blood erythrocytes automated count (number/volume) 3.29 10*6/uL 4.35-5.85 Venous blood hemoglobin measurement (mass/volume) 8.7 g/dL 11.5-16.0 Blood hematocrit (volume fraction) 29 % 35-52 Automated erythrocyte mean corpuscular volume 89 [ foz_us] 80-99 Automated erythrocyte mean corpuscular h emoglobin (mass per erythrocyte) 26 pg 25-34 Automated erythrocyte mean corpuscular h emoglobin concentration measurement (mass/volume) 30 g/dL 32-36 Automated erythrocyte distribution width ratio 15. 9 % 10.0- 14.5 Automated blood platelet count (count/volume) 262 10*3/uL 130-400 Automated blood platelet mean volume measurement 9.9 [foz_us] 7.4-10.4 Automated blood neutrophils/100 leukocytes 79 % 42-75 Automated blood lymphocytes/100 leukocytes 12 % 12-44 Blood monocytes/100 leukocytes 8 % 0-12 Automated blood eosinophils/100 leukocytes 1 % 0-10 Automated blood basophils/100 leukocytes 0 % 0-10 Blood neutrophils automated count (number/volume) 5.2 10*3 1.8-7.8 Blood lymphocytes automated count (number/volume) 0.8 10*3 1.0-4.0 Blood monocytes automated count (number/volume) 0. 5 10*3 0.0-1.0 Automated eosinophil count 0.1 10*3/uL 0 .0-0.3 Automated blood basophil count (count/volume) 0.0 10*3/uL 0.0-0.1 PT panel in platelet poor plasma by coag ulation assay - 06/12/19 19:30 Prothrombin time (PT) in platelet poor plasma by coagu lation assay 19.8 s 12.2-14.7 INR in platelet poor plasma or blood by coagulation as say 1.6 0.8-1.4 Activated partial thromboplastin time (a PTT) in platelet poor plasma bycoagulation assay - 06/12/19 19:30 Activated partial thromboplastin time (a PTT) in platelet poor plasma bycoagulation assay 28 s 24-35 Blood lactic acid measurement (moles/vol ume) - 06/12/19 19:30 Blood lactic acid measurement (moles/volume) 1.90 mmol/L 0.50-2.00 Influenza virus A and B antigen detectio n - 06/12/19 19:30 FLU RESULT NEGATIVE FOR INFLUENZA A AND B ANTIGENS BY IA NRG Serum or plasma lithium measurement (mol es/volume) - 06/12/19 19:30 BNP PT 1348.0 pg/mL <100.0 Bacterial blood culture - 06/12/19 19:30 Bacterial blood culture NG [facility] Arterial blood gas measurement - 0 19:42 Blood pCO2 38 mm[Hg] 35-45 Blood pO2 65 mm[Hg] 79-93 Arterial blood bicarbonate measurement (moles/volume) 30 mmol/L 23-27 Arterial blood base excess by calculation 7.0 mmol /L -2.5-2.5 Arterial blood oxygen saturation measurement 92 % 94-100 * Inhaled oxygen flow rate 2L NRG Arterial blood pH measurement with patient temperature correction 7.52 7.37-7.43 Arterial blood carbon dioxide, total measurement (mole s/volume) 31.5 mmol/L 21.0-31.0 Body site LEFT RADIAL NRG Assessment of wrist artery patency prior to arterial p uncture POSITIVE NRG Setting of ventilation mode NO NR G Measurement of body temperature 37.0 NRG Bacterial blood culture - 06/12/19 19:48 Bacterial blood culture NG NRG Complete urinalysis with reflex to cultu re - 06/12/19 21:15 Urine color determination YELLOW NRG Urine clarity determination CLEAR NR G Urine pH measurement by test strip 6.0 5-9 Specific gravity of urine by test strip 1.010 1.016-1.022 Urine protein assay by test strip, semi-quantitative NEGATIVE NEGATIVE Urine glucose detection by automated test strip NE GATIVE NEGATIVE Erythrocytes detection in urine sediment by light micr oscopy NEGATIVE NEGATIVE Urine ketones detection by automated test strip NE GATIVE NEGATIVE Urine nitrite detection by test strip NEGATIVE NEGATIVE Urine total bilirubin detection by test strip NEGA TIVE NEGATIVE Urine urobilinogen measurement by automated test strip (mass/volume) 0.2 mg/dL < = 1.0 Urine leukocyte esterase detection by dipstick 1+ NEGATIVE Automated urine sediment erythrocyte cou nt by microscopy (number/high power field) NONE NRG Automated urine sediment leukocyte count by microscopy (number/high power field) [HPF] NRG Bacteria detection in urine sediment by light microsco py FEW NRG Squamous epithelial cells detection in u rine sediment by light microscopy 2-5 NRG Crystals detection in urine sediment by light microsco py NONE NRG Casts detection in urine sediment by light microscopy NONE NRG Mucus detection in urine sediment by light microscopy NEGATIVE NRG Complete urinalysis with reflex to culture NO NRG Complete blood count (CBC) with automate d white blood cell (WBC) differential - 06/13/19 03:00 Blood leukocytes automated count (number/volume) 6.9 10*3/uL 4.3-11.0 Blood erythrocytes automated count (number/volume) 3.24 10*6/uL 4.35-5.85 Venous blood hemoglobin measurement (mass/volume) 8.6 g/dL 11.5-16.0 Blood hematocrit (volume fraction) 29 % 35-52 Automated erythrocyte mean corpuscular volume 89 [ foz_us] 80-99 Automated erythrocyte mean corpuscular h emoglobin (mass per erythrocyte) 27 pg 25-34 Automated erythrocyte mean corpuscular h emoglobin concentration measurement (mass/volume) 30 g/dL 32-36 Automated erythrocyte distribution width ratio 16. 1 % 10.0- 14.5 Automated blood platelet count (count/volume) 263 10*3/uL 130-400 Automated blood platelet mean volume measurement 10.6 [foz_us] 7.4-10.4 Automated blood neutrophils/100 leukocytes 96 % 42-75 Automated blood lymphocytes/100 leukocytes 3 % 12-44 Blood monocytes/100 leukocytes 1 % 0-12 Automated blood eosinophils/100 leukocytes 0 % 0-10 Automated blood basophils/100 leukocytes 0 % 0-10 Blood neutrophils automated count (number/volume) 6.6 10*3 1.8-7.8 Blood lymphocytes automated count (number/volume) 0.2 10*3 1.0-4.0 Blood monocytes automated count (number/volume) 0. 0 10*3 0.0-1.0 Automated eosinophil count 0.0 10*3/uL 0 .0-0.3 Automated blood basophil count (count/volume) 0.0 10*3/uL 0.0-0.1 Comprehensive metabolic panel - 06/13/19 03:00 Serum or plasma sodium measurement (moles/volume) 137 mmol/L 135-145 Serum or plasma potassium measurement (moles/volume) 3.8 mmol/L 3.6-5.0 Serum or plasma chloride measurement (moles/volume) 98 mmol/L 98-107 Carbon dioxide 25 mmol/L 21-32 Serum or plasma anion gap determination (moles/volume) 14 mmol/L 5-14 Serum or plasma urea nitrogen measurement (mass/volume ) 31 mg/dL 7-18 Serum or plasma creatinine measurement (mass/volume) 1.97 mg/dL 0.60-1.30 Serum or plasma urea nitrogen/creatinine mass ratio 16 NRG Serum or plasma creatinine measurement w ith calculation of estimated glomerular filtration rate 31 NRG Serum or plasma glucose measurement (mass/volume) 167 mg/dL 70-105 Serum or plasma calcium measurement (mass/volume) 9.7 mg/dL 8.5-10.1 Serum or plasma total bilirubin measurement (mass/volu me) 0.7 mg/dL 0.1-1.0 Serum or plasma alkaline phosphatase janine surement (enzymatic activity/volume) 64 U/L 40-136 Serum or plasma aspartate aminotransfera se measurement (enzymatic activity/volume) 23 U/L 5-34 Serum or plasma alanine aminotransferase measurement (enzymatic activity/volume) 23 U/L 0-55 Serum or plasma protein measurement (mass/volume) 7.5 g/dL 6.4-8.2 Serum or plasma albumin measurement (mass/volume) 3.8 g/dL 3.2-4.5 CALCIUM CORRECTED 9.9 mg/dL 8.5-10.1 Serum or plasma creatine kinase MB measu rement (enzymatic activity/volume) - 06/13/19 03:00 Serum or plasma creatine kinase MB measu rement (enzymatic activity/volume) 2.1 ng/mL <6.6 Serum or plasma troponin i.cardiac measu rement (mass/volume) - 06/13/19 03:00 Serum or plasma troponin i.cardiac measurement (mass/v olume) 0.031 ng/mL <0.028 Myoglobin, serum - 06/13/19 03:00 Myoglobin, serum 109.5 ng/mL 10.0-92.0 Serum or plasma lithium measurement (mol es/volume) - 06/13/19 03:00 BNP PT 1337.6 pg/mL <100.0 Manual absolute plasma cell count - 07/01 03:00 Manual blood segmented neutrophils/100 leukocytes 99 % NRG Manual blood lymphocytes/100 leukocytes 1 % NRG Serum or plasma phosphate measurement (m ass/volume) - 06/13/19 03:00 Serum or plasma phosphate measurement (mass/volume) 3.5 mg/dL 2.3-4.7 Magnesium - 06/13/19 03:00 Magnesium 1.9 mg/dL 1.6-2.4 BMP - 09/21/19 09:35 Anion Gap 14 6-14 BUN 39 mg/dL 5-25 Calcium 9.7 mg/dL 8.3-10.4 Chloride 102 mmol/L 95-114 CO2 28 mEq/L 22-33 Creat 1.93 mg/dL 0.50-1.50 eGFR 26 mL/min/1.73m2 >59 Glucose 101 mg/dL 70-110 Osmo 298 280-295 Potassium 4.1 mmol/L 3.5-5.3 Sodium 140 mmol/L 134-148 Complete blood count (CBC) with automate d white blood cell (WBC) differential - 10/05/19 18:00 Blood leukocytes automated count (number/volume) 5.4 10*3/uL 4.3-11.0 Blood erythrocytes automated count (number/volume) 3.15 10*6/uL 4.35-5.85 Venous blood hemoglobin measurement (mass/volume) 9.0 g/dL 11.5-16.0 Blood hematocrit (volume fraction) 29 % 35-52 Automated erythrocyte mean corpuscular volume 91 [ foz_us] 80-99 Automated erythrocyte mean corpuscular h emoglobin (mass per erythrocyte) 29 pg 25-34 Automated erythrocyte mean corpuscular h emoglobin concentration measurement (mass/volume) 31 g/dL 32-36 Automated erythrocyte distribution width ratio 16. 2 % 10.0- 14.5 Automated blood platelet count (count/volume) 178 10*3/uL 130-400 Automated blood platelet mean volume measurement 10.3 [foz_us] 7.4-10.4 Automated blood neutrophils/100 leukocytes 84 % 42-75 Automated blood lymphocytes/100 leukocytes 8 % 12-44 Blood monocytes/100 leukocytes 7 % 0-12 Automated blood eosinophils/100 leukocytes 0 % 0-10 Automated blood basophils/100 leukocytes 0 % 0-10 Blood neutrophils automated count (number/volume) 4.6 10*3 1.8-7.8 Blood lymphocytes automated count (number/volume) 0.4 10*3 1.0-4.0 Blood monocytes automated count (number/volume) 0. 4 10*3 0.0-1.0 Automated eosinophil count 0.0 10*3/uL 0 .0-0.3 Automated blood basophil count (count/volume) 0.0 10*3/uL 0.0-0.1 Manual absolute plasma cell count - 09/10 10/29 18:00 Blood monocytes/100 leukocytes 8 % NRG Manual blood segmented neutrophils/100 leukocytes 81 % NRG Blood band neutrophils/100 leukocytes 2 % NRG Manual blood lymphocytes/100 leukocytes 8 % NRG Manual eosinophils/100 leukocytes in nose 1 % NRG Blood anisocytosis detection by light microscopy S LIGHT NRG Blood hypochromia detection by light microscopy MO DERATE NRG Blood schistocytes detection by light microscopy S LIGHT NRG Serum or plasma lithium measurement (mol es/volume) - 10/05/19 18:00 BNP PT 2094.2 pg/mL <100.0 Comprehensive metabolic panel - 10/05/19 18:00 Serum or plasma sodium measurement (moles/volume) 137 mmol/L 135-145 Serum or plasma potassium measurement (moles/volume) 5.2 mmol/L 3.6-5.0 Serum or plasma chloride measurement (moles/volume) 103 mmol/L 98-107 Carbon dioxide 22 mmol/L 21-32 Serum or plasma anion gap determination (moles/volume) 12 mmol/L 5-14 Serum or plasma urea nitrogen measurement (mass/volume ) 69 mg/dL 7-18 Serum or plasma creatinine measurement (mass/volume) 2.31 mg/dL 0.60-1.30 Serum or plasma urea nitrogen/creatinine mass ratio 30 NRG Serum or plasma creatinine measurement w ith calculation of estimated glomerular filtration rate 25 NRG Serum or plasma glucose measurement (mass/volume) 95 mg/dL 70-105 Serum or plasma calcium measurement (mass/volume) 9.4 mg/dL 8.5-10.1 Serum or plasma total bilirubin measurement (mass/volu me) 0.7 mg/dL 0.1-1.0 Serum or plasma alkaline phosphatase janine surement (enzymatic activity/volume) 96 U/L 40-136 Serum or plasma aspartate aminotransfera se measurement (enzymatic activity/volume) 64 U/L 5-34 Serum or plasma alanine aminotransferase measurement (enzymatic activity/volume) 73 U/L 0-55 Serum or plasma protein measurement (mass/volume) 8.0 g/dL 6.4-8.2 Serum or plasma albumin measurement (mass/volume) 4.0 g/dL 3.2-4.5 CALCIUM CORRECTED 9.4 mg/dL 8.5-10.1 Serum or plasma troponin i.cardiac measu rement (mass/volume) - 10/05/19 18:00 Serum or plasma troponin i.cardiac measurement (mass/v olume) 0.057 ng/mL <0.028 Serum or plasma C reactive protein measu rement (mass/volume) - 10/05/19 18:00 Serum or plasma C reactive protein measurement (mass/v olume) 0.77 mg/dL 0.00-0.50 Comprehensive metabolic panel - 10/06/19 05:05 Serum or plasma sodium measurement (moles/volume) 137 mmol/L 135-145 Serum or plasma potassium measurement (moles/volume) 5.3 mmol/L 3.6-5.0 Serum or plasma chloride measurement (moles/volume) 103 mmol/L 98-107 Carbon dioxide 22 mmol/L 21-32 Serum or plasma anion gap determination (moles/volume) 12 mmol/L 5-14 Serum or plasma urea nitrogen measurement (mass/volume ) 70 mg/dL 7-18 Serum or plasma creatinine measurement (mass/volume) 2.37 mg/dL 0.60-1.30 Serum or plasma urea nitrogen/creatinine mass ratio 30 NRG Serum or plasma creatinine measurement w ith calculation of estimated glomerular filtration rate 25 NRG Serum or plasma glucose measurement (mass/volume) 98 mg/dL 70-105 Serum or plasma calcium measurement (mass/volume) 9.3 mg/dL 8.5-10.1 Serum or plasma total bilirubin measurement (mass/volu me) 0.6 mg/dL 0.1-1.0 Serum or plasma alkaline phosphatase janine surement (enzymatic activity/volume) 85 U/L 40-136 Serum or plasma aspartate aminotransfera se measurement (enzymatic activity/volume) 66 U/L 5-34 Serum or plasma alanine aminotransferase measurement (enzymatic activity/volume) 65 U/L 0-55 Serum or plasma protein measurement (mass/volume) 7.5 g/dL 6.4-8.2 Serum or plasma albumin measurement (mass/volume) 3.7 g/dL 3.2-4.5 CALCIUM CORRECTED 9.5 mg/dL 8.5-10.1 Complete blood count (CBC) with automate d white blood cell (WBC) differential - 10/06/19 05:09 Blood leukocytes automated count (number/volume) 4.2 10*3/uL 4.3-11.0 Blood erythrocytes automated count (number/volume) 3.10 10*6/uL 4.35-5.85 Venous blood hemoglobin measurement (mass/volume) 8.8 g/dL 11.5-16.0 Blood hematocrit (volume fraction) 28 % 35-52 Automated erythrocyte mean corpuscular volume 91 [ foz_us] 80-99 Automated erythrocyte mean corpuscular h emoglobin (mass per erythrocyte) 28 pg 25-34 Automated erythrocyte mean corpuscular h emoglobin concentration measurement (mass/volume) 31 g/dL 32-36 Automated erythrocyte distribution width ratio 16. 0 % 10.0- 14.5 Automated blood platelet count (count/volume) 152 10*3/uL 130-400 Automated blood platelet mean volume measurement 11.6 [foz_us] 7.4-10.4 Automated blood neutrophils/100 leukocytes 74 % 42-75 Automated blood lymphocytes/100 leukocytes 11 % 12-44 Blood monocytes/100 leukocytes 12 % 0-12 Automated blood eosinophils/100 leukocytes 3 % 0-10 Automated blood basophils/100 leukocytes 0 % 0-10 Blood neutrophils automated count (number/volume) 3.1 10*3 1.8-7.8 Blood lymphocytes automated count (number/volume) 0.5 10*3 1.0-4.0 Blood monocytes automated count (number/volume) 0. 5 10*3 0.0-1.0 Automated eosinophil count 0.1 10*3/uL 0 .0-0.3 Automated blood basophil count (count/volume) 0.0 10*3/uL 0.0-0.1 Complete blood count (CBC) with automate d white blood cell (WBC) differential - 10/13/19 14:58 Blood leukocytes automated count (number/volume) 5.6 10*3/uL 4.3-11.0 Blood erythrocytes automated count (number/volume) 3.35 10*6/uL 4.35-5.85 Venous blood hemoglobin measurement (mass/volume) 9.6 g/dL 11.5-16.0 Blood hematocrit (volume fraction) 31 % 35-52 Automated erythrocyte mean corpuscular volume 92 [ foz_us] 80-99 Automated erythrocyte mean corpuscular h emoglobin (mass per erythrocyte) 29 pg 25-34 Automated erythrocyte mean corpuscular h emoglobin concentration measurement (mass/volume) 31 g/dL 32-36 Automated erythrocyte distribution width ratio 15. 9 % 10.0- 14.5 Automated blood platelet count (count/volume) 204 10*3/uL 130-400 Automated blood platelet mean volume measurement 11.0 [foz_us] 7.4-10.4 Automated blood neutrophils/100 leukocytes 80 % 42-75 Automated blood lymphocytes/100 leukocytes 9 % 12-44 Blood monocytes/100 leukocytes 10 % 0-12 Automated blood eosinophils/100 leukocytes 1 % 0-10 Automated blood basophils/100 leukocytes 0 % 0-10 Blood neutrophils automated count (number/volume) 4.5 10*3 1.8-7.8 Blood lymphocytes automated count (number/volume) 0.5 10*3 1.0-4.0 Blood monocytes automated count (number/volume) 0. 5 10*3 0.0-1.0 Automated eosinophil count 0.0 10*3/uL 0 .0-0.3 Automated blood basophil count (count/volume) 0.0 10*3/uL 0.0-0.1 PT panel in platelet poor plasma by coag ulation assay - 10/13/19 14:58 Prothrombin time (PT) in platelet poor plasma by coagu lation assay 23.1 s 12.2-14.7 INR in platelet poor plasma or blood by coagulation as say 2.0 0.8-1.4 Activated partial thromboplastin time (a PTT) in platelet poor plasma bycoagulation assay - 10/13/19 14:58 Activated partial thromboplastin time (a PTT) in platelet poor plasma bycoagulation assay 35 s 24-35 Comprehensive metabolic panel - 10/13/19 14:58 Serum or plasma sodium measurement (moles/volume) 134 mmol/L 135-145 Serum or plasma potassium measurement (moles/volume) 4.9 mmol/L 3.6-5.0 Serum or plasma chloride measurement (moles/volume) 99 mmol/L 98-107 Carbon dioxide 25 mmol/L 21-32 Serum or plasma anion gap determination (moles/volume) 10 mmol/L 5-14 Serum or plasma urea nitrogen measurement (mass/volume ) 42 mg/dL 7-18 Serum or plasma creatinine measurement (mass/volume) 2.28 mg/dL 0.60-1.30 Serum or plasma urea nitrogen/creatinine mass ratio 18 NRG Serum or plasma creatinine measurement w ith calculation of estimated glomerular filtration rate 26 NRG Serum or plasma glucose measurement (mass/volume) 121 mg/dL 70-105 Serum or plasma calcium measurement (mass/volume) 9.3 mg/dL 8.5-10.1 Serum or plasma total bilirubin measurement (mass/volu me) 0.9 mg/dL 0.1-1.0 Serum or plasma alkaline phosphatase janine surement (enzymatic activity/volume) 117 U/L 40-136 Serum or plasma aspartate aminotransfera se measurement (enzymatic activity/volume) 39 U/L 5-34 Serum or plasma alanine aminotransferase measurement (enzymatic activity/volume) 52 U/L 0-55 Serum or plasma protein measurement (mass/volume) 7.8 g/dL 6.4-8.2 Serum or plasma albumin measurement (mass/volume) 4.1 g/dL 3.2-4.5 CALCIUM CORRECTED 9.2 mg/dL 8.5-10.1 Magnesium - 10/13/19 14:58 Magnesium 2.4 mg/dL 1.6-2.4 Myoglobin, serum - 10/13/19 14:58 Myoglobin, serum 100.4 ng/mL 10.0-92.0 Lipase - 10/13/19 14:58 Lipase 21 U/L 8-78 Serum or plasma troponin i.cardiac measu rement (mass/volume) - 10/13/19 14:58 Serum or plasma troponin i.cardiac measurement (mass/v olume) 0.047 ng/mL <0.028 Serum or plasma lithium measurement (mol es/volume) - 10/13/19 14:58 BNP PT 2760.8 pg/mL <100.0 Complete urinalysis with reflex to cultu re - 10/13/19 18:24 Urine color determination YELLOW NRG Urine clarity determination CLEAR NR G Urine pH measurement by test strip 5.5 5-9 Specific gravity of urine by test strip 1.015 1.016-1.022 Urine protein assay by test strip, semi-quantitative NEGATIVE NEGATIVE Urine glucose detection by automated test strip NE GATIVE NEGATIVE Erythrocytes detection in urine sediment by light micr oscopy NEGATIVE NEGATIVE Urine ketones detection by automated test strip NE GATIVE NEGATIVE Urine nitrite detection by test strip NEGATIVE NEGATIVE Urine total bilirubin detection by test strip NEGA TIVE NEGATIVE Urine urobilinogen measurement by automated test strip (mass/volume) 1.0 mg/dL < = 1.0 Urine leukocyte esterase detection by dipstick NEG ATIVE NEGATIVE Automated urine sediment erythrocyte cou nt by microscopy (number/high power field) NONE NRG Automated urine sediment leukocyte count by microscopy (number/high power field) NONE NRG Bacteria detection in urine sediment by light microsco py NEGATIVE NRG Squamous epithelial cells detection in u rine sediment by light microscopy RARE NRG Crystals detection in urine sediment by light microsco py NONE NRG Casts detection in urine sediment by light microscopy PRESENT NRG Mucus detection in urine sediment by light microscopy NEGATIVE NRG Complete urinalysis with reflex to culture NO NRG Hyaline casts detection in urine sediment by light radha roscopy 10-25 NRG Complete blood count (CBC) with automate d white blood cell (WBC) differential - 10/24/19 19:58 Blood leukocytes automated count (number/volume) 4.8 10*3/uL 4.3-11.0 Blood erythrocytes automated count (number/volume) 3.28 10*6/uL 4.35-5.85 Venous blood hemoglobin measurement (mass/volume) 9.4 g/dL 11.5-16.0 Blood hematocrit (volume fraction) 30 % 35-52 Automated erythrocyte mean corpuscular volume 93 [ foz_us] 80-99 Automated erythrocyte mean corpuscular h emoglobin (mass per erythrocyte) 29 pg 25-34 Automated erythrocyte mean corpuscular h emoglobin concentration measurement (mass/volume) 31 g/dL 32-36 Automated erythrocyte distribution width ratio 16. 7 % 10.0- 14.5 Automated blood platelet count (count/volume) 166 10*3/uL 130-400 Automated blood platelet mean volume measurement 10.6 [foz_us] 7.4-10.4 Automated blood neutrophils/100 leukocytes 79 % 42-75 Automated blood lymphocytes/100 leukocytes 12 % 12-44 Blood monocytes/100 leukocytes 8 % 0-12 Automated blood eosinophils/100 leukocytes 1 % 0-10 Automated blood basophils/100 leukocytes 0 % 0-10 Blood neutrophils automated count (number/volume) 3.8 10*3 1.8-7.8 Blood lymphocytes automated count (number/volume) 0.6 10*3 1.0-4.0 Blood monocytes automated count (number/volume) 0. 4 10*3 0.0-1.0 Automated eosinophil count 0.1 10*3/uL 0 .0-0.3 Automated blood basophil count (count/volume) 0.0 10*3/uL 0.0-0.1 Whole blood basic metabolic panel - 10/10 08/29 19:58 Serum or plasma sodium measurement (moles/volume) 138 mmol/L 135-145 Serum or plasma potassium measurement (moles/volume) 4.4 mmol/L 3.6-5.0 Serum or plasma chloride measurement (moles/volume) 102 mmol/L 98-107 Carbon dioxide 23 mmol/L 21-32 Serum or plasma anion gap determination (moles/volume) 13 mmol/L 5-14 Serum or plasma urea nitrogen measurement (mass/volume ) 54 mg/dL 7-18 Serum or plasma creatinine measurement (mass/volume) 2.34 mg/dL 0.60-1.30 Serum or plasma urea nitrogen/creatinine mass ratio 23 NRG Serum or plasma creatinine measurement w ith calculation of estimated glomerular filtration rate 25 NRG Serum or plasma glucose measurement (mass/volume) 110 mg/dL 70-105 Serum or plasma calcium measurement (mass/volume) 9.4 mg/dL 8.5-10.1 Serum or plasma troponin i.cardiac measu rement (mass/volume) - 10/24/19 19:58 Serum or plasma troponin i.cardiac measurement (mass/v olume) 0.053 ng/mL <0.028 Serum or plasma lithium measurement (mol es/volume) - 10/24/19 19:58 BNP PT 2743.2 pg/mL <100.0 Serum or plasma troponin i.cardiac measu rement (mass/volume) - 10/24/19 22:03 Serum or plasma troponin i.cardiac measurement (mass/v olume) 0.052 ng/mL <0.028 Complete blood count (CBC) with automate d white blood cell (WBC) differential - 10/28/19 14:00 Blood leukocytes automated count (number/volume) 4.6 10*3/uL 4.3-11.0 Blood erythrocytes automated count (number/volume) 3.20 10*6/uL 4.35-5.85 Venous blood hemoglobin measurement (mass/volume) 9.2 g/dL 11.5-16.0 Blood hematocrit (volume fraction) 30 % 35-52 Automated erythrocyte mean corpuscular volume 93 [ foz_us] 80-99 Automated erythrocyte mean corpuscular h emoglobin (mass per erythrocyte) 29 pg 25-34 Automated erythrocyte mean corpuscular h emoglobin concentration measurement (mass/volume) 31 g/dL 32-36 Automated erythrocyte distribution width ratio 16. 7 % 10.0- 14.5 Automated blood platelet count (count/volume) 151 10*3/uL 130-400 Automated blood platelet mean volume measurement 11.4 [foz_us] 7.4-10.4 Automated blood neutrophils/100 leukocytes 77 % 42-75 Automated blood lymphocytes/100 leukocytes 9 % 12-44 Blood monocytes/100 leukocytes 13 % 0-12 Automated blood eosinophils/100 leukocytes 2 % 0-10 Automated blood basophils/100 leukocytes 0 % 0-10 Blood neutrophils automated count (number/volume) 3.5 10*3 1.8-7.8 Blood lymphocytes automated count (number/volume) 0.4 10*3 1.0-4.0 Blood monocytes automated count (number/volume) 0. 6 10*3 0.0-1.0 Automated eosinophil count 0.1 10*3/uL 0 .0-0.3 Automated blood basophil count (count/volume) 0.0 10*3/uL 0.0-0.1 Comprehensive metabolic panel - 10/28/19 14:00 Serum or plasma sodium measurement (moles/volume) 138 mmol/L 135-145 Serum or plasma potassium measurement (moles/volume) 4.4 mmol/L 3.6-5.0 Serum or plasma chloride measurement (moles/volume) 102 mmol/L 98-107 Carbon dioxide 27 mmol/L 21-32 Serum or plasma anion gap determination (moles/volume) 9 mmol/L 5-14 Serum or plasma urea nitrogen measurement (mass/volume ) 47 mg/dL 7-18 Serum or plasma creatinine measurement (mass/volume) 1.98 mg/dL 0.60-1.30 Serum or plasma urea nitrogen/creatinine mass ratio 24 NRG Serum or plasma creatinine measurement w ith calculation of estimated glomerular filtration rate 30 NRG Serum or plasma glucose measurement (mass/volume) 94 mg/dL 70-105 Serum or plasma calcium measurement (mass/volume) 9.4 mg/dL 8.5-10.1 Serum or plasma total bilirubin measurement (mass/volu me) 0.5 mg/dL 0.1-1.0 Serum or plasma alkaline phosphatase janine surement (enzymatic activity/volume) 78 U/L 40-136 Serum or plasma aspartate aminotransfera se measurement (enzymatic activity/volume) 31 U/L 5-34 Serum or plasma alanine aminotransferase measurement (enzymatic activity/volume) 36 U/L 0-55 Serum or plasma protein measurement (mass/volume) 7.6 g/dL 6.4-8.2 Serum or plasma albumin measurement (mass/volume) 4.0 g/dL 3.2-4.5 CALCIUM CORRECTED 9.4 mg/dL 8.5-10.1 Erythrocyte sedimentation rate by rik gren method - 10/28/19 14:00 Erythrocyte sedimentation rate by westergren method 36 mm 0- 30 Serum ragweed IgE antibody assay - 10/27 14:00 Serum ragweed IgE antibody assay 255 U/L 125-220 PROCALCITONIN (PCT) - 10/28/19 14:00 PROCALCITONIN (PCT) 0.09 ng/mL <0.10 Fibrin D-dimer FEU measurement in platel et poor plasma (mass/volume) - 10/28/19 14:00 Fibrin D-dimer FEU measurement in platelet poor plasma (mass/volume) <= ug/mL 0.00-0.49 Serum or plasma lithium measurement (mol es/volume) - 10/28/19 14:00 BNP PT 1445.9 pg/mL <100.0 Serum or plasma troponin i.cardiac measu rement (mass/volume) - 10/28/19 14:00 Serum or plasma troponin i.cardiac measurement (mass/v olume) 0.477 ng/mL <0.028 Serum or plasma C reactive protein measu rement (mass/volume) - 10/28/19 14:00 Serum or plasma C reactive protein measurement (mass/v olume) 0.50 mg/dL 0.00-0.50 Magnesium - 10/28/19 14:00 Magnesium 2.2 mg/dL 1.6-2.4 Arterial blood gas measurement - 0 14:12 Blood pCO2 47 mm[Hg] 35-45 Blood pO2 141 mm[Hg] 79-93 Arterial blood bicarbonate measurement (moles/volume) 28 mmol/L 23-27 Arterial blood base excess by calculation 3.4 mmol /L -2.5-2.5 Arterial blood oxygen saturation measurement 98 % 94-100 * Inhaled oxygen flow rate 3 NRG Arterial blood pH measurement with patient temperature correction 7.39 7.37-7.43 Arterial blood carbon dioxide, total measurement (mole s/volume) 29.5 mmol/L 21.0-31.0 Body site RIGHT RA NRG Assessment of wrist artery patency prior to arterial p uncture Y NRG Setting of ventilation mode NO NR G Measurement of body temperature 36.9C NRG Encounters ACCT No. Visit Date/Time Discharge Status Pt. Type Provider Facility Loc./Unit Complaint [id number] 10/25/2019 16:34:00 10/25/2019 23:59 :00 DIS Outpatient CAPRI CARCAMO [id number] 10/11/2019 09:15:00 10/11/2019 23:59 :00 DIS Outpatient CAPRI CARCAMO [id number] 10/06/2019 08:34:00 10/06/2019 23:59 :00 DIS Outpatient Bhavana Zheng [id number] 09/21/2019 16:44:00 09/21/2019 23:59 :00 DIS Outpatient CAPRI CARCAMO [id number] 09/21/2019 11:15:00 09/21/2019 23:59 :00 DIS Outpatient CAPRI CARCAMO [id number] 09/13/2019 08:33:00 09/13/2019 23:59 :00 DIS Outpatient CAPRI CARCAMO [id number] 09/07/2019 09:45:00 09/07/2019 23:59 :00 DIS Outpatient CAPRI CARCAMO [id number] 05/24/2019 14:42:00 05/24/2019 23:59 :00 DIS Outpatient CAPRI CARCAMO [id number] 04/19/2019 13:09:00 04/19/2019 23:59 :00 DIS Outpatient CAPRI CARCAMO [id number] 03/22/2019 10:50:00 03/22/2019 23:59: 00 DIS Outpatient CAPRI CARCAMO [id number] 12/30/2018 08:35:00 12/30/2018 23:59: 00 DIS Outpatient LevinFilippo [id number] 01/29/2018 17:31:00 01/29/2018 23:59: 00 DIS Outpatient Filippo Levin [id number] 12/24/2017 14:38:00 12/24/2017 23:59: 00 DIS Outpatient Filippo Levin [id number] 12/19/2017 13:14:00 12/19/2017 23:59: 00 DIS Outpatient Filippo Levin [id number] 10/01/2018 08:52:00 Document Registration [id number] 02/03/2018 14:39:00 Document Registration [id number] 01/29/2018 11:26:00 Document Registration [id number] 12/23/2017 12:59:00 Document Registration [id number] 12/19/2017 10:40:00 Document Registration [id number] 12/10/2017 09:44:00 Document Registration [id number] 10/24/2019 19:43:00 22:49:00 DIS Emergency ANTOINETTE WANG APRN [facility] ER NOSEBLEED/ON BLOODTHINN ERS [id number] 10/13/2019 14:53:00 18:37:00 DIS Emergency ANTOINETTE WANG APRN [facility] ER VOMITING;FEVER;CHEST PA IN [id number] 07/14/2019 14:13:00 00:01:00 DIS Outpatient XIN MASTERSON MD [facility] PULM COPD [id number] 10/05/2019 19:02:00 16:00:00 DIS Inpatient STEFFI TONY MD [facility] 4TH AE,CHF [id number] 06/12/2019 21:45:00 15:00:00 DIS Inpatient XIN MASTERSON MD [facility] 4TH ACUTE EXACERBATION,CHF,COPDEXAC,CHRONIC RENAL FAIL [id number] 05/30/2019 12:45:00 14:27:00 DIS Inpatient STEFFI TONY MD [facility] 4TH CHF EXACERBATION PNEUMO KARMA [id number] 05/24/2019 14:31:00 17:04:00 DIS Inpatient XIN MASTERSON MD [facility] 4TH ACUTE EXAC OF CHF;COPD; MILDLY ELEVATED TROPONIN [id number] 05/17/2019 12:55:00 11:06:00 DIS Inpatient STEFFI TONY MD [facility] 4TH HEART FAILURE;TYPE II M I [id number] 05/07/2019 14:00:00 14:45:00 DIS Inpatient STEFFI TONY MD [facility] CHF;ELEVATED TROPONIN;C OPD;SYNCOPAL EPISODE [id number] 04/11/2019 02:55:00 18:17:00 DIS Outpatient STFEFI TONY MD [facility] CATH CHEST PAIN,ELEVATED TRO PONIN [id number] 03/28/2019 22:25:00 14:30:00 DIS Inpatient STEFFI TONY MD [facility] 4TH SOB [id number] 03/14/2019 12:30:00 11:30:00 DIS Inpatient STEFFI TONY MD [facility] CHF, COPD EXACERBATION [id number] 02/12/2019 08:15:00 23:59:59 CLS Preadmit THIAGO LONGO APRN [facility] RAD PNEUMONIA [id number] 02/08/2019 11:54:00 23:59:59 CLS Outpatient THIAGO LONGO APRN [facility] RT SARCOIDOSIS OF LUNG [id number] 02/01/2019 11:37:00 23:59:59 CLS Outpatient THIAGO LONGO APRN [facility] RAD MAXIM,ALLERGIC RHINITIS,DYSPNEA,LEG SWELLING [id number] 01/25/2019 00:10:00 23:59:59 CLS Preadmit THIAGO LONGO APRN [facility] PULM DYSPNEA [id number] 10/26/2018 07:53:00 00:01:00 DIS Outpatient THIAGO LONGO APRN [facility] PULM DYSPNEA [id number] 09/28/2018 13:14:00 23:59:59 CLS Outpatient VIRGIL CORNEJO [facility] LAB HEART FAILURE [id number] 09/28/2018 13:09:00 23:59:59 CLS Outpatient THIAGO LONGO APRN [facility] RT BRONCHIAL ASTHM A [id number] 09/23/2018 14:30:00 09:20:00 DIS Inpatient SARAH SUAREZ FACC, HENRY LOVE CCD S [facility] 4TH CHF ACUTE EXAC ERBATION [id number] 09/22/2018 12:25:00 18:55:00 DIS Outpatient SARAH SUAREZ FACC, HENRY LOVE CC DS [facility] CATH CHF [id number] 01/08/2018 14:58:00 23:59:59 CLS Preadmit THIAGO LONGO APRN [facility] RAD ACUTE ON CHRONI C COMBINED SYSTOLIC AND DIASTOLIC [id number] 12/05/2017 12:14:00 018 15:52:00 DIS Emergency NENITA SUAREZ, JERI Goodman [facility] ER SOB,NAUSEA,SWEL LING ON LE [id number] 12/01/2017 10:39:00 018 23:59:59 CLS Outpatient THIAGO LONGO APRN [facility] RAD LEG SWELLING, ASTHMA EXACERBATION,LUNG NODULE [id number] 11/25/2017 15:36:00 018 23:59:59 CLS Outpatient THIAGO LONGO APRN [facility] SLEEP BRONCHIAL ASTHMA,SUSPECTED SLEEP APNEA,HYPERSOMNIA [id number] 11/25/2017 15:21:00 018 23:59:59 CLS Outpatient THIAGO LONGO APRN [facility] RT ASTHMA EXACERBA TION [id number] 07/29/2017 12:47:00 018 23:59:59 CLS Outpatient MAGALI SUAREZ, MARY [facility] RAD CHRONIC KIDNEY DISEASE STAGE 4 [id number] 05/23/2017 10:40:00 018 23:59:59 CLS Outpatient SARAH SUAREZ FACC, HENRY LOVE CC DS [facility] CARD ATRIAL FLUT TER [id number] 04/11/2017 12:56:00 23:59:59 CLS Outpatient PHILLIP MADRIGAL DO [facility] RAD LUNG NODULE,OBESITY,MAGALIE COIDOSIS [id number] 04/10/2016 14:18:00 016 23:59:59 CLS Outpatient VIRGIL CORNEJO [facility] CARD NICM,DIASTOLIC DYSFUNCTION,FERMNI,PULM HTN [id number] 03/26/2016 13:14:00 016 23:59:59 CLS Outpatient THIAGO LONGO APRN [facility] RAD DYSPNEA,BRONCHI AL ASTHMA [id number] 08/11/2014 15:00:00 015 23:59:59 CLS Preadmit PHILLIP MADRIGAL DO [facility] PULM [id number] 06/21/2014 13:00:00 015 23:59:59 CLS Outpatient PHILLIP MADRIGAL DO [facility] PULM [id number] 06/09/2014 13:00:00 015 00:00:00 DIS Outpatient PHILLIP MADRIGAL DO [facility] PULM [id number] 10/27/2013 07:42:00 014 23:59:59 CLS Outpatient PHILLIP MADRIGAL DO [facility] RT [id number] 10/15/2013 13:38:00 014 23:59:59 CLS Outpatient VIRGIL CORNEJO [facility] CARD [id number] 10/01/2013 11:46:00 014 23:59:59 CLS Outpatient BELLA GIBSON MD [facility] RAD [id number] 05/25/2013 21:00:00 014 06:55:00 DIS Outpatient VIRGIL CORNEJO [facility] SLEEP SNORING [id number] 02/05/2013 08:07:00 013 23:59:59 CLS Outpatient [id number] 02/02/2013 10:36:00 013 23:59:59 CLS Outpatient [id number] 10/28/2019 14:29:00 Document Registration [id number] 12/10/2017 12:49:00 Document Registration [id number] 05/07/2012 06:36:00 Document Registration [id number] 05/06/2012 09:58:00 Document Registration
[2019-10-28] MEDS: CATHETER FLUSH 10 ML SYR IV SCH (22:02)
[2019-10-28 22:11] VITALS: BP 120/62
[2019-10-28] MEDS ORDERED: RT-ALBUTEROL/IPRATROPIUM 3 ML (DUONEB) VIAL INH PRN (22:30)
[2019-10-29] VITALS: BP 112/72
[2019-10-29 03:43] LABS: HEMOGLOBIN 8.4 G/DL (11.5-16.0); MEAN PLATELET VOLUME 10.9 FL (7.4-10.4); RED CELL DISTRIBUTION WIDTH 16.6 % (10.0-14.5); WHITE BLOOD COUNT 3.8 10^3/uL (4.3-11.0)
[2019-10-29 03:52] LABS: ALBUMIN 3.5 GM/DL (3.2-4.5)
[2019-10-29 03:54] LABS: CALCIUM 9.1 MG/DL (8.5-10.1)
[2019-10-29 03:55] LABS: TOTAL PROTEIN 6.6 GM/DL (6.4-8.2)
[2019-10-29 03:57] LABS: BILIRUBIN,TOTAL 0.7 MG/DL (0.1-1.0)
[2019-10-29 03:59] LABS: CREATININE SERUM 1.95 MG/DL (0.60-1.30)
[2019-10-29 04:00] VITALS: BP 125/79
[2019-10-29 04:01] LABS: MAGNESIUM 2.3 MG/DL (1.6-2.4)
[2019-10-29] MEDS: CATHETER FLUSH 10 ML SYR IV SCH (06:11)
[2019-10-29] MEDS: FUROSEMIDE 40 MG/4 ML INJ (LASIX) IVP SCH (06:11)
[2019-10-29] MEDS: RT-ALBUTEROL/IPRATROPIUM 3 ML (DUONEB) VIAL INH SCH ×2 (06:57→10:25)
[2019-10-29 07:58] VITALS: BP 113/70
--- NOTE | 2019-10-29 08:01 | Consultation-Cardiology ---
HPI-Cardiology Cardiology Consultation: Date of Consultation 10/29/19 Time Seen by a Provider: 08:15 Date of Admission 10-29-2019 Attending Physician Carey Dai MD Admitting Physician Carlos Castellano MD Consulting Physician Suzette Wilson MD HPI: Chief Complaint: Progressive dyspnea Ms. Hurley is a 69 year old female admitted to [facility] from the ED with c/o increasing dyspnea with lose productive cough over the last 3 days. She reports chest tightness/congestion which also started approx 3 days ago. She reports the chest tightness is in the middle of her chest, does not change with exertion. No n/v/d. No c/o diaphoresis. Lasts for a few seconds and resolves without any intervention. States it is consistent with chronic intermittent chest tightness which she has had for "quite some time". No c/o LE swelling. She was at [facility] in early October, treated for CHF and released. She states she is awaiting mitral clip procedure, but does not have a date yet. She reports he SOB is much better this morning. She reports her seasonal allergies have been worse recently. She denies any fever or chills. She states she has not been totally compliant with a low sodium diet and has been eating prepared foods and fast foods. Review of Systems-Cardiology Review of Systems Constitutional: No chills, No fever, No malaise Eyes: No vision change Ears/Nose/Throat: No epistaxis Respiratory: As described under HPI Cardiovascular: As described under HPI Gastrointestinal: No constipation, No diarrhea, No nausea, No vomiting Genitourinary: No dysuria Musculoskeletal: no symptoms reported Skin: No rash on exposed areas, No ulcerations on exposed areas Psychiatric/Neurological: No anxiety, No depression, No seizure, No focal weakness Hematologic: No bleeding abnormalities All Other Systems Reviewed Negative Unless Noted: Yes DJC-[id number]-[id number] Hx Patient Social History Alcohol Use: Occasionally Uses Recreational Drug Use: No Smoking Status: Former Smoker Type Used: Cigarettes 2nd Hand Smoke Exposure: Yes (NONE FOR 20 YEARS) Recent Foreign Travel: No Recent Infectious Disease Expo: No Hospitalization with Isolation: Denies Immunizations Up To Date Tetanus Booster (TDap): Unknown Date of Pneumonia Vaccine: Feb 09, 2019 Date of Influenza Vaccine: May 12, 2019 Past Medical History PMH As described under Assessment. Family Medical History Family Medical History: She reports her father had HTN. No reported family h/o CAD or SCD. Family History: Patient reports no known family medical history. Allergies and Home Medications Allergies Coded Allergies: No Known Drug Allergies (Unverified , 11/03/11) Home Medications Albuterol Sulfate 18 Gm Hfa.aer.ad, 2 PUFF INH QID PRN for SHORTNESS OF BREATH, (Reported) Albuterol Sulfate 1.25 Mg/3 Ml Vial.neb, 3 ML NEB Q6H PRN for SHORTNESS OF BREATH, (Reported) Allopurinol 100 Mg Tablet, 100 MG PO DAILY, (Reported) Amiodarone HCl 200 Mg Tablet, 200 MG PO DAILY, (Reported) Apixaban 5 Mg Tablet, 5 MG PO BID, (Reported) LAST FILLED 08-26-2019 #60/30 DAY SUPPLY Calcitriol 0.25 Mcg Capsule, 0.25 MCG PO MoWeFr, (Reported) Cholecalciferol (Vitamin D3) 25 Mcg Capsule, 25 MCG PO DAILY, (Reported) Clotrimazole/Betamethasone Dip 15 Gm Cream..g., 1 APPLIC TOP BID PRN for RASH, (Reported) Cyanocobalamin (Vitamin B-12) 1,000 Mcg Capsule, 1,000 MCG PO DAILY, (Reported) Fluticasone Propionate 16 Gm [place].susp, 1 SPRAY NS HS, (Reported) Fluticasone/Salmeterol 1 Each Blst.w.dev, 1 PUFF IH BID, (Reported) Furosemide 80 Mg Tablet, 80 MG PO BID, (Reported) Lisinopril 10 Mg Tablet, 10 MG PO BID, (Reported) Metolazone 2.5 Mg Tablet, 2.5 MG PO DAILY Prescribed by: VIRGIL CORNEJO on 10/29/19956 Metoprolol Succinate 25 Mg Tab.er.24h, 25 MG PO HS, (Reported) Multivitamin 1 Each Tablet, 1 EACH PO DAILY, (Reported) Pantoprazole Sodium 40 Mg Tablet.dr, 40 MG PO DAILY, (Reported) Potassium Chloride 20 Meq Tablet.er, 20 MEQ PO BID Prescribed by: VIRGIL CORNEJO on 10/29/19956 Tiotropium [place] 4 Gm Mist.inhal, 2 PUFF INH DAILY, (Reported) Physical Exam-Cardiology Physical Exam Vital Signs/I&O Capillary Refill : Less Than 3 Seconds Constitutional: AAO x 3, well-developed, well-nourished HEENT: PERRL, hearing is well preserved, oral hygience is good Neck: No carotid bruit; carotid pulses are 2 + bilaterally Respiratory: No accessory muscle use, No respiratory distress; chest expansion is symmetric, chest is bilaterally symmetric, lungs clear to auscultation, rhonchi (scattered ) Cardiovascular: regular rate-rhythm; No JVD; S1 and S2 Gastrointestinal: No tender; soft, round, audible bowel sounds Extremities: No no lower extremity edema bilateral Neurologic/Psychiatric: No grossly intact (moves all extremities) Skin: No rash on exposed areas, No ulcerations on exposed areas Data Review Labs Microbiology 10/28/19 Blood Culture - Preliminary, Resulted No growth Radiology CLARY: MARQUIS HURLEY MED REC#: [id number] PT STATUS: ADM Nate : 1950 PHYSICIAN: KATHRYN WILSON MD ADMIT DATE: 10/28/19/ICU Signed Date of Exam:10/28/19 CHEST 1 VIEW, AP/PA ONLY CLINICAL INDICATIONS: Patient with shortness of air. EXAM: Portable chest x-ray upright view. COMPARISONS: Portable chest x-ray dated 10/24/2019. FINDINGS: Stable moderate cardiomegaly. There is stable mild pulmonary vascular congestion. There is improved aeration of the right lung base with residual mild right basilar atelectasis versus infiltrate. There is no pleural effusion or pneumothorax. Cardiac pacemaker/AICD again seen overlying the left chest with 2 leads projecting over the heart. The remainder of this exam shows no significant interval change compared to the prior study of comparison. IMPRESSION: 1: There is slight improved aeration of the right lung base with residual mild bibasilar atelectasis versus infiltrate. 2: Stable cardiomegaly with mild pulmonary vascular congestion. Dictated by: Dictated on workstation # [id number] Dict: 10/28/19 1420 Trans: 10/28/19 1650 [facility] [id number] Interpreted by: LINDSEY ALEX MD Electronically signed by: LINDSEY ALEX MD 10/28/19 4484 ECG Impression ECG Comment A.paced A/P-Cardiology Assessment/Admission Diagnosis Multifactorial shortness of breath (see below) Mildly elevated troponin, likely Type 2 [place] secondary to transient hypoxia Acute on chronic systolic and diastolic CHF due to nonischemic cardiomyopathy and mitral regurg Severe mitral regurgitation. GABRIELLA of 05/27/19 showed severe MR, mod TR, RVSP 53 mmHg, LVEF approx 50%. Pt awaiting Nela Clip and following at [facility] for that H/O epistaxis that dropped Hgb to below 5 a few months ago. Resolved OAC with Eliquis RLL pneumonia in May 2019 Card cath of 04/12/19: normal cors, LVEF 50%, LVEDP 17 mmHg H/o nonischemic cardiomyopathy that had improved. Previously, she had an ejection fraction between 30 and 35% on serial echocardiograms, but most recent echo of May 30, [address] Pritchett showed LVEF 30%. Severe MR and TR. PASP 48- 53 mmHg Postural syncope likely medications. Syncopal episode of undetermined etiology (May 06, 2019 per pt report). Device interrogation of 05/17/19 did not any significant arrhythmia that might account for syncope Anemia of undetermined etiology (possibly due to CKD) managed by her pcp Suspected sarcoidosis, followed by Dr Rose. 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 Device functioning normally per interrogation of May 2019 Paroxysmal atrial flutter. Currently in SR after electrical cardioversion in Jun 2019 at [facility] with rhythm maintenance on Amiodarone. Intolerance to digoxin (results in N/V and poor appetite) Chronic LBBB CKD-4, being followed by Dr Huff History of bronchial asthma, managed by Dr Rose Frequent epistaxis, likely related to Oxygen by nasal cannula and chronic oral anticoag Obesity-hypoventilation syndrome and MAXIM, treated with CPAP, but she is noncompliant Pulmonary hypertension - H/o pulm hypertension on echo studies of 2011,2012, 2013, echo studies of 2015 and 2017 had shown PASP approx 30-35 mmHg. Most recent echo of May 2019 showed PASP in 48-53 mmHg range Mild carotid dz per u/s of Mar 2019 Intolerance to ORAL-inhib / ARB due to worsening renal function on these agents (currently on ORAL and being followed by Christian Torrez) Clinical Quality Measures DVT/VTE Risk/Contraindication: Risk Factor Score Per Nursin RFS Level Per Nursing on Admit: 4+=Very High VIRGIL CORNEJO Oct 29, 2019 08:01
[2019-10-29] MEDS ORDERED: ASPIRIN E.C. 81 MG (ECOTRIN) TAB PO SCH (09:00)
[2019-10-29] MEDS ORDERED: FURO80TA3 PO (09:17)
[2019-10-29] MEDS ORDERED: MULT-1136 PO (09:17)
[2019-10-29] MEDS ORDERED: LISI10TA2 PO (09:17)
[2019-10-29] MEDS ORDERED: CHOL100048 PO (09:17)
[2019-10-29] MEDS ORDERED: POTA-51 PO ×2 (09:17→09:57)
[2019-10-29] MEDS ORDERED: MTP25TSR PO (09:17)
[2019-10-29] MEDS ORDERED: METO2.5T PO (09:57)
[2019-10-29] MEDS: KCL 20 MEQ TAB (K-DUR) PO SCH (10:03)
[2019-10-29] MEDS: APIXABAN 5 MG (ELIQUIS) TABLET PO SCH (10:04)
--- NOTE | 2019-10-29 10:15 | NUR ---
SPOKE WITH THE PT AND WENT THRU THE EXT MED HISTORY TO COMPLETE THE MED REC THE PT HAD A CURRENT MED LIST FROM [facility] FROM 10-18-2019 (I PUT A COPY ON HER CHART) AND I WENT THRU THE EXT MED HISTORY WITH THE PT AND SHE REFERENCED THE MED LIST. THERE WERE 3 MEDICATIONS ON THE MED LIST THAT THE PT SAYS SHE IS NO LONGER TAKING- FOLIC ACID 1MG, TURMERIC CURCUMIN AND FERROUS SULFATE. ELIQUIS 5MG WAS LAST FILLED 08-26-2019 #60/30DS- I DID DOCUMENT THE PAST DUE REFILL ON THE MED REC. OTC: FLONASE VIT D
--- NOTE | 2019-10-29 10:24 | Consultation-Cardiology ---
HPI-Cardiology Cardiology Consultation: Date of Consultation 10/29/19 Time Seen by a Provider: 08:40 Date of Admission Attending Physician Carey Dai MD Admitting Physician Carlos Castellano MD Consulting Physician HENRY SMITH MD, MA, FACP, FACC, FSCAI, CCDS HPI: Chief Complaint: CC: Incrasing shortness of breath HPI Ms. Hurley is a 69 year old female admitted to [facility] from the ED with c/o increasing dyspnea with lose productive cough over the last 3 days. She reports chest tightness/congestion which also started approx 3 days ago. She reports the chest tightness is in the middle of her chest, does not change with exertion. No n/v/d. No c/o diaphoresis. Lasts for a few seconds and resolves without any intervention. States it is consistent with chronic intermittent chest tightness which she has had for "quite some time". No c/o LE swelling. She was at [facility] in early October, treated for CHF and released. She states she is awaiting mitral clip procedure, but does not have a date yet. She reports he SOB is much better this morning. She reports her seasonal allergies have been worse recently. She denies any fever or chills. She states she has not been totally compliant with a low sodium diet and has been eating prepared foods and fast foods. She has been drinking large amounts of fluids at home Review of Systems-Cardiology Review of Systems Constitutional: No chills, No fever, No malaise Eyes: No vision change Ears/Nose/Throat: No epistaxis Respiratory: As described under HPI Cardiovascular: As described under HPI Gastrointestinal: No constipation, No diarrhea, No nausea, No vomiting Genitourinary: No dysuria Musculoskeletal: no symptoms reported Skin: No rash on exposed areas, No ulcerations on exposed areas Psychiatric/Neurological: No anxiety, No depression, No seizure, No focal weakness Hematologic: No bleeding abnormalities All Other Systems Reviewed Negative Unless Noted: Yes [id number]-[id number] Hx Patient Social History Alcohol Use: Occasionally Uses Recreational Drug Use: No Smoking Status: Former Smoker Type Used: Cigarettes 2nd Hand Smoke Exposure: Yes (NONE FOR 20 YEARS) Recent Foreign Travel: No Recent Infectious Disease Expo: No Hospitalization with Isolation: Denies Immunizations Up To Date Tetanus Booster (TDap): Unknown Date of Pneumonia Vaccine: Feb 09, 2019 Date of Influenza Vaccine: May 12, 2019 Past Medical History PMH As described under Assessment. Family Medical History Family Medical History: She reports her father had HTN. No reported family h/o CAD or SCD. Family History: Patient reports no known family medical history. Allergies and Home Medications Allergies Coded Allergies: No Known Drug Allergies (Unverified , 11/03/11) Home Medications Albuterol Sulfate 18 Gm Hfa.aer.ad, 2 PUFF INH QID PRN for SHORTNESS OF BREATH, (Reported) Albuterol Sulfate 1.25 Mg/3 Ml Vial.neb, 3 ML NEB Q6H PRN for SHORTNESS OF BREATH, (Reported) Allopurinol 100 Mg Tablet, 100 MG PO DAILY, (Reported) Amiodarone HCl 200 Mg Tablet, 200 MG PO DAILY, (Reported) Apixaban 5 Mg Tablet, 5 MG PO BID, (Reported) LAST FILLED 08-26-2019 #60/30 DAY SUPPLY Calcitriol 0.25 Mcg Capsule, 0.25 MCG PO MoWeFr, (Reported) Cholecalciferol (Vitamin D3) 25 Mcg Capsule, 25 MCG PO DAILY, (Reported) Clotrimazole/Betamethasone Dip 15 Gm Cream..g., 1 APPLIC TOP BID PRN for RASH, (Reported) Cyanocobalamin (Vitamin B-12) 1,000 Mcg Capsule, 1,000 MCG PO DAILY, (Reported) Fluticasone Propionate 16 Gm [place].susp, 1 SPRAY NS HS, (Reported) Fluticasone/Salmeterol 1 Each Blst.w.dev, 1 PUFF IH BID, (Reported) Furosemide 80 Mg Tablet, 80 MG PO BID, (Reported) Lisinopril 10 Mg Tablet, 10 MG PO BID, (Reported) Metolazone 2.5 Mg Tablet, 2.5 MG PO DAILY Prescribed by: VIRGIL CORNEJO on 10/29/19956 Metoprolol Succinate 25 Mg Tab.er.24h, 25 MG PO HS, (Reported) Multivitamin 1 Each Tablet, 1 EACH PO DAILY, (Reported) Pantoprazole Sodium 40 Mg Tablet.dr, 40 MG PO DAILY, (Reported) Potassium Chloride 20 Meq Tablet.er, 20 MEQ PO DAILY, (Reported) Potassium Chloride 20 Meq Tablet.er, 20 MEQ PO BID Prescribed by: VIRGIL CORNEJO on 10/29/19956 Tiotropium [place] 4 Gm Mist.inhal, 2 PUFF INH DAILY, (Reported) Patient Home Medication List Home Medication List Reviewed: Yes Physical Exam-Cardiology Physical Exam Vital Signs/I&O 10/29/19 10/29/19 10/29/19 10/29/19 00:00 00:00 01:00 04:00 Temp 36.8 Pulse 70 69 Resp 20 B/P (MAP) 112/72 (85) Pulse Ox 99 99 96 O2 Delivery Nasal Cannula Nasal Cannula Nasal Cannula O2 Flow Rate 3.00 3.00 3.00 10/29/19 10/29/19 10/29/19 10/29/19 04:00 07:00 07:01 07:58 Temp 36.6 36.4 Pulse 69 70 70 Resp 20 20 B/P (MAP) 125/79 (94) 113/70 (84) Pulse Ox 98 98 97 O2 Delivery Nasal Cannula Nasal Cannula Nasal Cannula O2 Flow Rate 3.00 3.00 3.00 10/29/19 00:00 Intake Total 390 ml Output Total 900 ml Balance -510 ml Capillary Refill : Less Than 3 Seconds Constitutional: AAO x 3, well-developed, well-nourished HEENT: PERRL, hearing is well preserved, oral hygience is good Neck: No carotid bruit; carotid pulses are 2 + bilaterally Respiratory: No accessory muscle use, No respiratory distress; chest expansion is symmetric, chest is bilaterally symmetric, lungs clear to auscultation, rhonchi (scattered ) Cardiovascular: regular rate-rhythm; No JVD; S1 and S2 Gastrointestinal: No tender; soft, round, audible bowel sounds Extremities: No no lower extremity edema bilateral Neurologic/Psychiatric: No grossly intact (moves all extremities) Skin: No rash on exposed areas, No ulcerations on exposed areas Data Review Labs Laboratory Tests 10/28/19 14:00: White Blood Count 4.6, Red Blood Count 3.20L, Hemoglobin 9.2L, Hematocrit 30L, Mean Corpuscular Volume 93, Mean Corpuscular Hemoglobin 29, Mean Corpuscular Hemoglobin Concent 31L, Red Cell Distribution Width 16.7H, Platelet Count 151, Mean Platelet Volume 11.4H, Neutrophils (%) (Auto) 77H, Lymphocytes (%) (Auto) 9L, Monocytes (%) (Auto) 13H, Eosinophils (%) (Auto) 2, Basophils (%) (Auto) 0, Neutrophils # (Auto) 3.5, Lymphocytes # (Auto) 0.4L, Monocytes # (Auto) 0.6, Eosinophils # (Auto) 0.1, Basophils # (Auto) 0.0, Erythrocyte Sedimentation Rate 36H, D-Dimer <= 0.27, Sodium Level 138, Potassium Level 4.4, Chloride Level 102, Carbon Dioxide Level 27, Anion Gap 9, Blood Urea Nitrogen 47H, Creatinine 1.98H, Estimat Glomerular Filtration Rate 30, BUN/Creatinine Ratio 24, Glucose Level 94, Calcium Level 9.4, Corrected Calcium 9.4, Magnesium Level 2.2, Total Bilirubin 0.5, Aspartate Amino Transf (AST/SGOT) 31, Alanine Aminotransferase (ALT/SGPT) 36, Alkaline Phosphatase 78, Lactate Dehydrogenase 255H, Troponin I 0.477*H, C-Reactive Protein High Sensitivity 0.50, B-Type Natriuretic Peptide 1445.9H, Total Protein 7.6, Albumin 4.0, Procalcitonin 0.09 10/28/19 14:12: Blood Gas Puncture Site RIGHT RA, Blood Gas Patient Temperature 36.9C, Arterial Blood pH 7.39, Arterial Blood Partial Pressure CO2 47H, Arterial Blood Partial Pressure O2 141H, Arterial Blood HCO3 28H, Arterial Blood Total CO2 29.5, Arterial Blood Oxygen Saturation 98, Arterial Blood Base Excess 3.4H, Ren Test Y, Blood Gas Ventilator Setting NO, Blood Gas Inspired Oxygen 3 10/28/19 20:55: Troponin I 0.043H 10/29/19 03:20: White Blood Count 3.8L, Red Blood Count 2.92L, Hemoglobin 8.4L, Hematocrit 27L, Mean Corpuscular Volume 93, Mean Corpuscular Hemoglobin 29, Mean Corpuscular Hemoglobin Concent 31L, Red Cell Distribution Width 16.6H, Platelet Count 144, Mean Platelet Volume 10.9H, Sodium Level 139, Potassium Level 4.0, Chloride Level 102, Carbon Dioxide Level 29, Anion Gap 8, Blood Urea Nitrogen 49H, Creatinine 1.95H, Estimat Glomerular Filtration Rate 31, BUN/Creatinine Ratio 25, Glucose Level 90, Calcium Level 9.1, Corrected Calcium 9.5, Magnesium Level 2.3, Total Bilirubin 0.7, Aspartate Amino Transf (AST/SGOT) 23, Alanine Aminotransferase (ALT/SGPT) 29, Alkaline Phosphatase 62, Troponin I 0.062H, Total Protein 6.6, Albumin 3.5 A/P-Cardiology Assessment/Admission Diagnosis Multifactorial shortness of breath (see below) Acute on chronic systolic and diastolic CHF due to nonischemic cardiomyopathy and mitral regurg Mildly elevated troponin, likely Type 2 [place] secondary to CHF Severe mitral regurgitation. GABRIELLA of 05/27/19 showed severe MR, mod TR, RVSP 53 mmHg, LVEF approx 50%. Pt awaiting Nela Clip and following at [facility] for that H/O epistaxis that dropped Hgb to below 5 a few months ago. Resolved OAC with Eliquis RLL pneumonia in May 2019 Card cath of 04/12/19: normal cors, LVEF 50%, LVEDP 17 mmHg H/o nonischemic cardiomyopathy that had improved. Previously, she had an ejection fraction between 30 and 35% on serial echocardiograms, but most recent echo of May 30, [address] Pritchett showed LVEF 30%. Severe MR and TR. PASP 48- 53 mmHg Postural syncope likely medications. Syncopal episode of undetermined etiology (May 06, 2019 per pt report). Device interrogation of 05/17/19 did not any significant arrhythmia that might account for syncope Anemia of undetermined etiology (possibly due to CKD) managed by her pcp Suspected sarcoidosis, followed by Dr Rose. 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 Device functioning normally per interrogation of May 2019 Paroxysmal atrial flutter. Currently in SR after electrical cardioversion in Jun 2019 at [facility] with rhythm maintenance on Amiodarone. Intolerance to digoxin (results in N/V and poor appetite) Chronic LBBB CKD-4, being followed by Dr Huff History of bronchial asthma, managed by Dr Rose Frequent epistaxis, likely related to Oxygen by nasal cannula and chronic oral anticoag Obesity-hypoventilation syndrome and MAXIM, treated with CPAP, but she is noncompliant Pulmonary hypertension - H/o pulm hypertension on echo studies of 2011,2012, 2013, echo studies of 2015 and 2017 had shown PASP approx 30-35 mmHg. Most recent echo of May 2019 showed PASP in 48-53 mmHg range Mild carotid dz per u/s of Mar 2019 Intolerance to ORAL-inhib / ARB due to worsening renal function on these agents (currently on ORAL and being followed by [facility]) Discussion and Recomendations * I had a long and detailed discussion with her ([id number]) and with her son (on telephone) this am * We again educated her in management of heart failure * We advised compliance with low salt diet * She is drinking large amounts of fluids at home, apparently in attempt to keep herself healthy. This has led to increasing amounts of diuretics. We advised her to cut back on her current fluid intake by 25%. We are adding low-dose metolazone to the regimen and raising supple K. We have advised repeat labs on 11/01/19 and f/u at our office next week * We have advised continuing f/u at [facility] where she is awaiting Nela Clip Clinical Quality Measures DVT/VTE Risk/Contraindication: Risk Factor Score Per Nursin RFS Level Per Nursing on Admit: 4+=Very High HENRY SMITH MD FACP FAC CCDS Oct 29, 2019 10:24
--- NOTE | 2019-10-29 11:19 | Discharge Summary ---
Discharge Summary Hospital Course Was the Problem List Reviewed?: Yes Problems/Dx: (1) Acute on chronic diastolic heart failure (2) Chronic respiratory failure with hypoxia Status: Chronic (3) Chronic renal failure Status: Acute (4) Elevated troponin Status: Acute Final Diagnosis: Congestive heart failure Hospital Course Date of Admission: Oct 28, 2019 at 16:00 Admission Diagnosis : Family Physician/Provider: Carlos Castellano MD Date of Discharge: 10/29/19 Discharge Diagnosis: [ Acute on chronic shortness of breath-multifactorial Congestive heart failure secondary to diastolic failure and systolic failure from cardiomyopathy, and mitral valve regurgitation] O2 dependent COPD and asthma Type II diabetes Chronic renal failure stage 3-4 with a GFR of 30 Hospital Course: Patient was admitted with increased shortness of breath. Upon had increased and was felt to be secondary to decompensated congestive heart failure. The patient was seen in consultation by Dr. Todd who felt that she was doing better with diuresis and recommended follow-up with her gasket inspector in [place] for repair of her mitral valve. At the time of discharge the patient is feeling much better and anxious to go home. Patient is set up with home oxygen and a normal level. [ ] Labs and Pending Lab Test: Laboratory Tests 10/28/19 14:00: White Blood Count 4.6, Red Blood Count 3.20L, Hemoglobin 9.2L, Hematocrit 30L, Mean Corpuscular Volume 93, Mean Corpuscular Hemoglobin 29, Mean Corpuscular Hemoglobin Concent 31L, Red Cell Distribution Width 16.7H, Platelet Count 151, Mean Platelet Volume 11.4H, Neutrophils (%) (Auto) 77H, Lymphocytes (%) (Auto) 9L, Monocytes (%) (Auto) 13H, Eosinophils (%) (Auto) 2, Basophils (%) (Auto) 0, Neutrophils # (Auto) 3.5, Lymphocytes # (Auto) 0.4L, Monocytes # (Auto) 0.6, Eosinophils # (Auto) 0.1, Basophils # (Auto) 0.0, Erythrocyte Sedimentation Rate 36H, D-Dimer <= 0.27, Sodium Level 138, Potassium Level 4.4, Chloride Level 102, Carbon Dioxide Level 27, Anion Gap 9, Blood Urea Nitrogen 47H, Creatinine 1.98H, Estimat Glomerular Filtration Rate 30, BUN/Creatinine Ratio 24, Glucose Level 94, Calcium Level 9.4, Corrected Calcium 9.4, Magnesium Level 2.2, Total Bilirubin 0.5, Aspartate Amino Transf (AST/SGOT) 31, Alanine Aminotransferase (ALT/SGPT) 36, Alkaline Phosphatase 78, Lactate Dehydrogenase 255H, Troponin I 0.477*H, C-Reactive Protein High Sensitivity 0.50, B-Type Natriuretic Peptide 1445.9H, Total Protein 7.6, Albumin 4.0, Procalcitonin 0.09 10/28/19 14:12: Blood Gas Puncture Site RIGHT RA, Blood Gas Patient Temperature 36.9C, Arterial Blood pH 7.39, Arterial Blood Partial Pressure CO2 47H, Arterial Blood Partial Pressure O2 141H, Arterial Blood HCO3 28H, Arterial Blood Total CO2 29.5, Arterial Blood Oxygen Saturation 98, Arterial Blood Base Excess 3.4H, Ren Test Y, Blood Gas Ventilator Setting NO, Blood Gas Inspired Oxygen 3 10/28/19 20:55: Troponin I 0.043H 10/29/19 03:20: White Blood Count 3.8L, Red Blood Count 2.92L, Hemoglobin 8.4L, Hematocrit 27L, Mean Corpuscular Volume 93, Mean Corpuscular Hemoglobin 29, Mean Corpuscular Hemoglobin Concent 31L, Red Cell Distribution Width 16.6H, Platelet Count 144, Mean Platelet Volume 10.9H, Sodium Level 139, Potassium Level 4.0, Chloride Level 102, Carbon Dioxide Level 29, Anion Gap 8, Blood Urea Nitrogen 49H, Creatinine 1.95H, Estimat Glomerular Filtration Rate 31, BUN/Creatinine Ratio 25, Glucose Level 90, Calcium Level 9.1, Corrected Calcium 9.5, Magnesium Level 2.3, Total Bilirubin 0.7, Aspartate Amino Transf (AST/SGOT) 23, Alanine Aminotransferase (ALT/SGPT) 29, Alkaline Phosphatase 62, Troponin I 0.062H, Total Protein 6.6, Albumin 3.5 Home Meds Active Potassium Chloride 20 Meq Tablet.er 20 Meq PO BID Metolazone 2.5 Mg Tablet 2.5 Mg PO DAILY Reported Multivitamin 1 Each Tablet 1 Each PO DAILY Potassium Chloride 20 Meq Tablet.er 20 Meq PO DAILY Metoprolol Succinate 25 Mg Tab.er.24h 25 Mg PO HS Lisinopril 10 Mg Tablet 10 Mg PO BID Furosemide 80 Mg Tablet 80 Mg PO BID Vitamin D3 (Cholecalciferol (Vitamin D3)) 25 Mcg Capsule 25 Mcg PO DAILY Pantoprazole Sodium 40 Mg Tablet.dr 40 Mg PO DAILY Amiodarone HCl 200 Mg Tablet 200 Mg PO DAILY Vitamin B-12 (Cyanocobalamin (Vitamin B-12)) 1,000 Mcg Capsule 1,000 Mcg PO DAILY Albuterol Sulfate 1.25 Mg/3 Ml Vial.neb 3 Ml NEB Q6H PRN Advair 250-50 Diskus (Fluticasone/Salmeterol) 1 Each Blst.w.dev 1 Puff IH BID Spiriva Respimat 2.5MCG/ACTUATION (Tiotropium [place]) 4 Gm Mist.inhal 2 Puff INH DAILY Allopurinol 100 Mg Tablet 100 Mg PO DAILY Calcitriol 0.25 Mcg Capsule 0.25 Mcg PO MOWEFR Clotrimazole-Betamethasone Crm (Clotrimazole/Betamethasone Dip) 15 Gm Cream..g. 1 Applic TOP BID PRN Fluticasone Propionate 16 Gm Wren.susp 1 Wren NS HS Ventolin Hfa (Albuterol Sulfate) 18 Gm Hfa.aer.ad 2 Puff INH QID PRN Eliquis (Apixaban) 5 Mg Tablet 5 Mg PO BID LAST FILLED 08-26-2019 #60/30 DAY SUPPLY Assessment/Pt Instructions Shortness of breath secondary to decompensated congestive heart failure and COPD. Patient's medications are being adjusted by Dr. Todd and she will be discharged with close follow-up next week. Discharge Instructions Discharge Diet: Low Sodium Diet Activity as Tolerated: Yes Consultations Dr. Todd Discharge Physical Examination General Appearance: Alert, Oriented X3, Cooperative HEENT: PERRLA Respiratory: Other (Expiratory wheezes) Cardiovascular: Regular Rate, Other Abdominal: Normal Bowel Sounds, Soft Extremities: No Edema Skin: No Rashes Neuro: Normal Speech Psych/Mental Status: Mental Status NL, Mood NL Allergies: Coded Allergies: No Known Drug Allergies (Unverified , 11/03/11) Discharge Summary Date of Admission Oct 28, 2019 at 16:00 Date of Discharge October 29, 2019 Discharge Date: Oct 29, 2019 Discharge Time: 13:00 Admission Diagnosis Chest pain Congestive heart failure Shortness of breath Mitral regurgitation Consults/Procedures Consulations Dr. Todd Procedures None Clinical Quality Measures DVT/VTE Risk/Contraindication: Risk Factor Score Per Nursin RFS Level Per Nursing on Admit: 4+=Very High JIMI GOMEZ MD Oct 29, 2019 11:19
[2019-10-29 12:49] VITALS: BP 110/72
[2019-10-29 14:16] VITALS: BP 110/72
[2019-10-29] MEDS ORDERED: lisINopril 10 MG (PRINIVIL) TABLET PO SCH (21:00)
[2019-10-30] MEDS ORDERED: AMIODARONE 200 MG (CORDARONE) TAB PO SCH (09:00)
== END 2019-10-29 11:43 | disposition home or self-care (01) ==
LOC: EDUNIT# 13:48 → ER 13:51 → ICU 16:00 → UNDOADMOB 16:00 → ICU 17:00 → CSD 18:00 → UNDODISOB 10-29 16:11
PROVIDERS: ADMIT Family Medicine; ATTEND Family Medicine
DX: I13.0 Hypertensive heart and chronic kidney disease with heart failure and stage 1 through stage 4 chronic kidney disease, or unspecified chronic kidney disease (principal); I50.33 Acute on chronic diastolic (congestive) heart failure; I50.23 Acute on chronic systolic (congestive) heart failure; E11.22 Type 2 diabetes mellitus with diabetic chronic kidney disease; N18.4 Chronic kidney disease, stage 4 (severe); J96.11 Chronic respiratory failure with hypoxia; I21.4 Non-ST elevation (NSTEMI) myocardial infarction; I48.91 Unspecified atrial fibrillation; I48.92 Unspecified atrial flutter; J44.9 Chronic obstructive pulmonary disease, unspecified; I42.8 Other cardiomyopathies; I08.1 Rheumatic disorders of both mitral and tricuspid valves; I44.7 Left bundle-branch block, unspecified; D63.1 Anemia in chronic kidney disease; R04.0 Epistaxis; I27.20 Pulmonary hypertension, unspecified; E66.2 Morbid (severe) obesity with alveolar hypoventilation; Z68.36 Body mass index [BMI] 36.0-36.9, adult; R79.89 Other specified abnormal findings of blood chemistry; Z79.899 Other long term (current) drug therapy; Z79.51 Long term (current) use of inhaled steroids; Z79.01 Long term (current) use of anticoagulants; Z87.891 Personal history of nicotine dependence; Z90.710 Acquired absence of both cervix and uterus; Z99.81 Dependence on supplemental oxygen
CPT/HCPCS: 71045; 80053 ×2; 82805; 83615; 83735 ×2; 83880; 84145; 84484 ×2; 85025; 85027; 85379; 85652; 86141; 87040; 94640 ×2; 94760; 96374; 99285; G0378; 36415

== ENCOUNTER → 2019-11-30 | Outpatient (CLI) | payer BC, MEDICARE ==
[~2019-11-30] MED LIST changes: +CHOL100048 PO; +FURO80TA3 PO; +METO2.5T PO; +MTP25TSR PO; +MULT-1136 PO; +RT-ALBUTEROL SULF 2.5 MG/3 ML PRE-MIX VIAL INH ONE
--- NOTE | 2019-11-30 10:12 | Diagnostic Imaging Report ---
PROCEDURE: CT chest without contrast. TECHNIQUE: Multiple contiguous axial images were obtained through the chest without the use of intravenous contrast. Auto Exposure Controls were utilized during the CT exam to meet ALARA standards for radiation dose reduction. INDICATION: Follow-up pulmonary nodules from 03/15/2019 CT chest. FINDINGS: The tree-in-bud infiltrates and atelectasis has cleared since previous exam. Bilateral 5 mm nodules in the left lower lobe as well as within the right lower and right upper lobe are again noted. Calcification is noted in the right upper lobe nodules now. No new nodules have developed. No pleural effusions or pericardial effusion. There are scattered lymph nodes throughout the mediastinum which are stable and are felt to be consistent with inflammatory process. Largest lymph node is in the azygos window measuring 1.5 cm. No pleural effusion or pericardial effusion. The adrenal glands are not enlarged. There is a small fixed hiatal hernia. Sagittal reformatted images show good alignment of the thoracic vertebral bodies with no compression fractures. No blastic or lytic bony changes. IMPRESSION: 1. Clearing of tree-in-bud infiltrates since previous exam. 2. Bilateral scattered 5 mm pulmonary nodules some of which are now calcified in the right upper lobe. These are consistent with granulomas and are stable. 3. Stable mediastinal lymph nodes also consistent with chronic inflammatory process. No further follow-up is needed for these findings. Dictated by: Dictated on workstation # [id number]
== END ==
LOC: RT 07:38
DX: R91.8 Other nonspecific abnormal finding of lung field (principal); R06.00 Dyspnea, unspecified
CPT/HCPCS: 71250; 94060; 94726; 94729

== ENCOUNTER 2020-01-08 11:03 | Emergency (ER) | payer BC, MEDICARE ==
[~2020-01-08] VITALS: Ht 165 cm; Wt 95.0 kg
[~2020-01-08 11:03] MED LIST changes: -RT-ALBUTEROL SULF 2.5 MG/3 ML PRE-MIX VIAL INH ONE
--- NOTE | 2020-01-08 11:58 | ED EENT ---
History of Present Illness General Chief Complaint: Nasal Problems Stated Complaint: NOSE BLEED Nursing Triage Note: PT AMBULATED TO ROOM 3 W CO OF NOSEBLEEDS, NO CURRENT BLEEDING AT THIS X. PT STATES WEARS O2@ 3L AT ALL TIMES. PT ALSO STATES HAS LIL DIZZINESS, PT INTIAL B/P 68/32 AFTER WALKING TO ROOM, PT B/P RECHECKED AND PRESSURE 96/58. DENIES PAIN AT THIS X. PT DOES NOT USES HUMIDITY ON HER O2. STATES STARTED . PT ALSO STARTED TAKING A BABY ASA ON FRIDAY ORDERED BY HER PCP Source: patient Exam Limitations: no limitations History of Present Illness Date Seen by Provider: Jan 08, 2020 Time Seen by Provider: 11:50 Initial Comments Malathi Hurley is a well appearing 69 yo female who presented to ED via POV for nose bleed. States she has frequent nose bleeds and has had 3 episodes this week, typically lasting 10 minutes. States she applies ice and gentle pressure to area and bleeding stops. Upon arrival she is not actively bleeding but does report dizziness with transfer to ED cot. She states she feels dizzy frequently when she stands up. She wears 3 liters of oxygen continuously at home via [place]. Has chronic shortness of breath, but is not worse than her normal. Denies fever, chills, headache, chest pain, cough, nausea/vomiting, abdominal pain, diarrhea, dysuria, or frequency. Timing/Duration: abrupt Severity: mild Prearrival Treatment: squeezing nostrils, other (ice application ) Modifying Factors: Improves With Oxygen Associated Symptoms: denies symptoms Allergies and Home Medications Allergies Coded Allergies: No Known Drug Allergies (Unverified , 11/03/11) Home Medications Albuterol Sulfate 18 Gm Hfa.aer.ad, 2 PUFF INH QID PRN for SHORTNESS OF BREATH, (Reported) Albuterol Sulfate 1.25 Mg/3 Ml Vial.neb, 3 ML NEB Q6H PRN for SHORTNESS OF BREATH, (Reported) Allopurinol 100 Mg Tablet, 100 MG PO DAILY, (Reported) Amiodarone HCl 200 Mg Tablet, 200 MG PO DAILY, (Reported) Apixaban 5 Mg Tablet, 5 MG PO BID, (Reported) LAST FILLED 08-26-2019 #60/30 DAY SUPPLY Calcitriol 0.25 Mcg Capsule, 0.25 MCG PO MoWeFr, (Reported) Cholecalciferol (Vitamin D3) 25 Mcg Capsule, 25 MCG PO DAILY, (Reported) Clotrimazole/Betamethasone Dip 15 Gm Cream..g., 1 APPLIC TOP BID PRN for RASH, (Reported) Cyanocobalamin (Vitamin B-12) 1,000 Mcg Capsule, 1,000 MCG PO DAILY, (Reported) Fluticasone Propionate 16 Gm [place].susp, 1 SPRAY NS HS, (Reported) Fluticasone/Salmeterol 1 Each Blst.w.dev, 1 PUFF IH BID, (Reported) Furosemide 80 Mg Tablet, 80 MG PO BID, (Reported) Lisinopril 10 Mg Tablet, 10 MG PO BID, (Reported) Metolazone 2.5 Mg Tablet, 2.5 MG PO DAILY Prescribed by: VIRGIL CORNEJO on 10/29/19956 Metoprolol Succinate 25 Mg Tab.er.24h, 25 MG PO HS, (Reported) Multivitamin 1 Each Tablet, 1 EACH PO DAILY, (Reported) Pantoprazole Sodium 40 Mg Tablet.dr, 40 MG PO DAILY, (Reported) Potassium Chloride 20 Meq Tablet.er, 20 MEQ PO BID Prescribed by: VIRGIL CORNEJO on 10/29/19956 Tiotropium [place] 4 Gm Mist.inhal, 2 PUFF INH DAILY, (Reported) Patient Home Medication List Home Medication List Reviewed: Yes Review of Systems Review of Systems Constitutional: dizziness Eyes: No Symptoms Reported Ears: No Symptoms Reported Nose: see HPI, clots, epistaxis Mouth: no symptoms reported Throat: no symptoms reported Respiratory: no symptoms reported Cardiovascular: no symptoms reported Musculoskeletal: no symptoms reported Skin: no symptoms reported Neurological: No Symptoms Reported Hematologic/Lymphatic: Easy Bleeding, Easy Bruising Immunological/Allergic: no symptoms reported Past Xatputo-Lcoctk-Uyewgz Hx Patient Social History Alcohol Use: Rarely Uses Number of Drinks Today: BB Alcohol Beverage of Choice: [place] Recreational Drug Use: No Smoking Status: Former Smoker Type Used: Cigarettes 2nd Hand Smoke Exposure: Yes (NONE FOR 20 YEARS) Recent Foreign Travel: No Contact w/Someone Who Travel: No Recent Infectious Disease Expo: No Recent Hopitalizations: No Physical Abuse: No Sexual Abuse: No Immunizations Up To Date Tetanus Booster (TDap): Unknown Date of Pneumonia Vaccine: Feb 09, 2019 Date of Influenza Vaccine: May 12, 2019 Seasonal Allergies Seasonal Allergies: Yes Past Medical History Surgeries: Yes (Appy and hysterectomy '; CARDIAC CATHS-LAST ONE 04/12/19-NO INTERVENTION;) Appendectomy, Defibrillator, Hysterectomy, Oophorectomy Respiratory: Yes (HOME O2 AT 3L/NC;PULMONARY HTN;POSSIBLE SARCOIDOSIS;OBESITY/HYPOVENTILATION) Pneumonia, Sleep Apnea, COPD Currently Using CPAP: Yes (WITH O2) Currently Using BIPAP: No Cardiac: Yes (CHF;LBBB;MR/TR;AFIB/FLUTTER-WITH MULT. 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 No Pertinent Family Hx PSH: -CARDIAC CATH--04/11/19--NO INTERVENTION; EF 50%, NO SIGNIFICANT CAD PMH: -SEVERE MITRAL REGURGITATION/TRIUCUSPIC REGURG -MILD CAROTID DISEASE Physical Exam Vital Signs Vital Signs - First Documented 01/08/20 11:03 Temp 36.4 Pulse 68 Resp 18 B/P (MAP) 96/58 (71) Pulse Ox 97 O2 Delivery Nasal Cannula O2 Flow Rate 3.00 Height, Weight, BMI Height: 5'5.00" Weight: 243lbs. 0.2oz. 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, no motor/sensory deficits, alert, normal mood/affect, oriented x 3 Skin: normal color, warm/dry Progress/Results/Core Measures Results/Orders Lab Results Laboratory Tests Test 01/08/20 11:44 01/08/20 12:27 Range/Units White Blood Count 5.0 4.3-11.0 10^3/uL Red Blood Count 2.40 L 4.35-5.85 10^6/uL Hemoglobin 7.2 L 11.5-16.0 G/DL Hematocrit 22 L 35-52 % Mean Corpuscular Volume 93 80-99 FL Mean Corpuscular Hemoglobin 30 25-34 PG Mean Corpuscular Hemoglobin Concent 32 32-36 G/DL Red Cell Distribution Width 17.6 H 10.0-14.5 % Platelet Count 197 130-400 10^3/uL Mean Platelet Volume 10.8 H 7.4-10.4 FL Neutrophils (%) (Auto) 75 42-75 % Lymphocytes (%) (Auto) 13 12-44 % Monocytes (%) (Auto) 9 0-12 % Eosinophils (%) (Auto) 3 0-10 % Basophils (%) (Auto) 0 0-10 % Neutrophils # (Auto) 3.7 1.8-7.8 X 10^3 Lymphocytes # (Auto) 0.7 L 1.0-4.0 X 10^3 Monocytes # (Auto) 0.4 0.0-1.0 X 10^3 Eosinophils # (Auto) 0.1 0.0-0.3 10^3/uL Basophils # (Auto) 0.0 0.0-0.1 10^3/uL Sodium Level 136 135-145 MMOL/L Potassium Level 5.0 3.6-5.0 MMOL/L Chloride Level 99 98-107 MMOL/L Carbon Dioxide Level 24 21-32 MMOL/L Anion Gap 13 5-14 MMOL/L Blood Urea Nitrogen 111 *H 7-18 MG/DL Creatinine 3.94 H 0.60-1.30 MG/DL Estimat Glomerular Filtration Rate 14 BUN/Creatinine Ratio 28 Glucose Level 109 H 70-105 MG/DL Calcium Level 9.4 8.5-10.1 MG/DL Corrected Calcium 9.5 8.5-10.1 MG/DL Total Bilirubin 0.4 0.1-1.0 MG/DL Aspartate Amino Transf (AST/SGOT) 24 5-34 U/L Alanine Aminotransferase (ALT/SGPT) 26 0-55 U/L Alkaline Phosphatase 50 40-136 U/L Total Protein 7.2 6.4-8.2 GM/DL Albumin 3.9 3.2-4.5 GM/DL Urine Color YELLOW Urine Clarity CLEAR Urine pH 6.0 5-9 Urine Specific [place] <=1.005 1.016-1.022 Urine Protein NEGATIVE NEGATIVE Urine Glucose (UA) NEGATIVE NEGATIVE Urine Ketones NEGATIVE NEGATIVE Urine Nitrite NEGATIVE NEGATIVE Urine Bilirubin NEGATIVE NEGATIVE Urine Urobilinogen 0.2 < = 1.0 MG/DL Urine Leukocyte Esterase NEGATIVE NEGATIVE Urine RBC (Auto) NEGATIVE NEGATIVE Urine RBC NONE /HPF Urine WBC RARE /HPF Urine Squamous Epithelial Cells 2-5 /HPF Urine Crystals NONE /LPF Urine Bacteria NEGATIVE /HPF Urine Casts NONE /LPF Urine Mucus NEGATIVE /LPF Urine Culture Indicated NO My Orders Orders - KEAGAN KIRBY APRN Comprehensive Metabolic Panel (01/08/20 11:50) Ekg Tracing (01/08/20 11:50) Iv Heplock-Insert (Order) (01/08/20 11:50) Ns Iv 500 Ml (Sodium Chloride 0.9%) (01/08/20 12:00) Cbc With Automated Diff (01/08/20 11:44) Ua Culture If Indicated (01/08/20 12:13) Orthostatic Vital Signs (Adult (01/08/20 12:13) Ns Iv 1000 Ml (Sodium Chloride 0.9%) (01/08/20 12:57) Ns Iv 1000 Ml (Sodium Chloride 0.9%) (01/08/20 13:15) Vital Signs/I&O 01/08/20 01/08/20 01/08/20 01/08/20 11:03 12:10 12:58 16:09 Temp 36.4 Pulse 68 70 70 70 71 76 Resp 18 16 16 B/P (MAP) 96/58 (71) 90/60 (70) 107/83 (91) 121/81 84/45 (58) 81/29 (46) Pulse Ox 97 98 97 O2 Delivery Nasal Cannula Nasal Cannula Nasal Cannula O2 Flow Rate 3.00 2.00 3.00 Blood Pressure Mean: 71 Progress Progress Note : Progress Note Labs reviewed. Elevated creatinine, BUN, and decreased GFR, and Hgb. Compared with baseline on 10/29/19 and found to be significantly worse. Discussed with her the need for nephrology consultation. Discussed plan with her son Bharathi and her spouse Evan. All are agreeable with plan to transfer to [facility] in [place]. Initiated NS fluid bolus and gentle hydration in ED. Departure Impression Primary Impression: Acute kidney injury superimposed on chronic kidney disease Additional Impression: Epistaxis Disposition: XFER SHT-TRM HOSP Condition: Stable Transfer Transfer Reason: Exceeds level of care Time Spoke to Accepting Phy: 13:00 Transfer Progress Notes 1300: Called [facility] one-call. Discussed case with Dr. Oliveros. Accepted patient transfer at this time. Transfer Facility: [facility] Method of Transfer: EMS Departure-Patient Inst. Referrals: CAPRI CARCAMO MD (PCP/Family) Primary Care Physician KEAGAN KIRBY SEC[employer]IDE FARE COLLECTOR Jan 08, 2020 11:58
[2020-01-08] MEDS ORDERED: NS IV 500 ML 500 ML IV SCH (12:00)
[2020-01-08 12:02] LABS: ALBUMIN 3.9 GM/DL (3.2-4.5)
[2020-01-08 12:04] LABS: CALCIUM 9.4 MG/DL (8.5-10.1)
[2020-01-08 12:05] LABS: BASOPHILS % (AUTO) 0 % (0-10); EOSINOPHILS # (AUTO) 0.1 10^3/uL (0.0-0.3); EOSINOPHILS % (AUTO) 3 % (0-10); HEMATOCRIT 22 % (35-52); HEMOGLOBIN 7.2 G/DL (11.5-16.0); LYMPHOCYTES # (AUTO) 0.7 X 10^3 (1.0-4.0); LYMPHOCYTES % (AUTO) 13 % (12-44); MEAN CORPUSCULAR HEMOGLOBIN 30 PG (25-34); MEAN CORPUSCULAR HGB CONC 32 G/DL (32-36); MEAN CORPUSCULAR VOLUME 93 FL (80-99); MEAN PLATELET VOLUME 10.8 FL (7.4-10.4); MONOCYTES # (AUTO) 0.4 X 10^3 (0.0-1.0); MONOCYTES % (AUTO) 9 % (0-12); NEUTROPHILS # (AUTO) 3.7 X 10^3 (1.8-7.8); NEUTROPHILS % (AUTO) 75 % (42-75); PLATELET COUNT 197 10^3/uL (130-400); RED CELL DISTRIBUTION WIDTH 17.6 % (10.0-14.5); TOTAL PROTEIN 7.2 GM/DL (6.4-8.2)
[2020-01-08 12:07] LABS: BILIRUBIN,TOTAL 0.4 MG/DL (0.1-1.0)
[2020-01-08 12:09] LABS: CREATININE SERUM 3.94 MG/DL (0.60-1.30)
[2020-01-08 12:10] VITALS: BP_SYST 81; BP_SYST 84; BP_SYST 90; BP_DIAS 29; BP_DIAS 45; BP_DIAS 60
[2020-01-08 12:34] LABS: BILIRUBIN,URINE NEGATIVE (NEGATIVE); CLARITY,URINE CLEAR; COLOR,URINE YELLOW; GLUCOSE, URINE (UA) NEGATIVE (NEGATIVE); KETONES,URINE NEGATIVE (NEGATIVE); LEUKOCYTE ESTERASE ,URINE NEGATIVE (NEGATIVE); NITRITE,URINE NEGATIVE (NEGATIVE); PROTEIN,URINE NEGATIVE (NEGATIVE)
[2020-01-08 12:42] LABS: BACTERIA,URINE NEGATIVE /HPF; WBC,URINE RARE /HPF
[2020-01-08] MEDS ORDERED: NS IV 1000 ML 1,000 ML ONE (12:57)
[2020-01-08 12:58] VITALS: BP 107/83
[2020-01-08] MEDS ORDERED: NS IV 1000 ML 1,000 ML IV SCH (13:15)
[2020-01-08 16:09] VITALS: BP 121/81
== END 2020-01-08 16:09 | disposition short-term general hospital (02) ==
LOC: EDUNIT# 11:03 → ER 11:04
DX: N17.9 Acute kidney failure, unspecified (principal); I13.0 Hypertensive heart and chronic kidney disease with heart failure and stage 1 through stage 4 chronic kidney disease, or unspecified chronic kidney disease; N18.4 Chronic kidney disease, stage 4 (severe); R04.0 Epistaxis; I48.91 Unspecified atrial fibrillation; J44.9 Chronic obstructive pulmonary disease, unspecified; E66.01 Morbid (severe) obesity due to excess calories; D63.1 Anemia in chronic kidney disease; Z68.34 Body mass index [BMI] 34.0-34.9, adult; Z79.01 Long term (current) use of anticoagulants; Z79.51 Long term (current) use of inhaled steroids; Z95.810 Presence of automatic (implantable) cardiac defibrillator; Z87.891 Personal history of nicotine dependence
CPT/HCPCS: 36415; 80053; 81000; 85007; 85025

== ENCOUNTER → 2020-01-24 | Outpatient (CLI) | payer BC, MEDICARE ==
[~2020-01-24] MED LIST changes: +ASPI-1238 PO; -ASPI-983 PO
== END ==
LOC: LABNPT 05:59
PROVIDERS: ATTEND Internal Medicine Interventional Cardiology
DX: Z01.810 Encounter for preprocedural cardiovascular examination (principal); I34.0 Nonrheumatic mitral (valve) insufficiency; Z20.828 Contact with and (suspected) exposure to other viral communicable diseases
CPT/HCPCS: 87635

== ENCOUNTER 2020-02-06 06:08 | Emergency (ER) | payer BC, MEDICARE ==
[~2020-02-06] VITALS: Ht 165 cm; Wt 97.0 kg
[~2020-02-06 06:08] MED LIST changes: -PANT40TA3 PO; +PANT40TA52 PO
--- NOTE | 2020-02-06 06:31 | ED Dyspnea ---
General Stated Complaint: SOB,COUGH Source of Information: Patient Exam Limitations: No Limitations History of Present Illness Date Seen by Provider: Feb 06, 2020 Time Seen by Provider: 06:15 Initial Comments Patient is a 69-year-old female who presents to the emergency department with a chief complaint of shortness of breath ongoing for 1 week. Patient states that she normally gets short of breath when the weather changes. She states her symptoms are worse in the last 3 days especially with walking any distance. Patient states that she normally wears 3 L of oxygen daily. She uses nebulizer treatments and MDIs for breathing. None of these have been helping. Patient has had a hacking cough with scant sputum production over the last 3 days. She denies any fevers, chills, URI symptoms. No GI or symptoms. Patient also has some tightness that is located in her right back and chest. Patient states this is familiar to her when she become short of breath. She has had previous c ardiology evaluations including cardiac catheterization with "normal coronaries". This was done in April 2019. Patient has a history of pulmonary hypertension, congestive heart failure, chronic kidney disease, A. fib status post pacemaker defibrillator. She is a non-smoker. She denies any increased swelling to her lower extremities. She is not sleeping on more pillows than normal. She does have consistent dyspnea on exertion. Patient is scheduled for a mitral clip for a leaky valve on February 23. She follows with Dr. Wilson for cardiology. At the time of my evaluation the patient does appear in mild respiratory distress without any accessory muscle use. She is on her 3 L of oxygen per nasal cannula satting at 96%. All other review of systems reviewed and negative except as stated. Timing/Duration: 1 Week Severity: Severe Activities at Onset: Activity Prior Episodes/Possible Cause: Occasional Episodes Modifying Factors: Improves With Albuterol Inhaler, Improves With Albuterol Nebulizer, Improves With Oxygen Associated Symptoms: Chest Pain ("tightness"), Cough Allergies and Home Medications Allergies Coded Allergies: No Known Drug Allergies (Unverified , 11/03/11) Home Medications Albuterol Sulfate 18 Gm Hfa.aer.ad, 2 PUFF INH QID PRN for SHORTNESS OF BREATH, (Reported) Albuterol Sulfate 1.25 Mg/3 Ml Vial.neb, 3 ML NEB Q6H PRN for SHORTNESS OF BREATH, (Reported) Allopurinol 100 Mg Tablet, 100 MG PO DAILY, (Reported) Amiodarone HCl 200 Mg Tablet, 200 MG PO DAILY, (Reported) Apixaban 5 Mg Tablet, 5 MG PO BID, (Reported) LAST FILLED 08-26-2019 #60/30 DAY SUPPLY Calcitriol 0.25 Mcg Capsule, 0.25 MCG PO MoWeFr, (Reported) Cholecalciferol (Vitamin D3) 25 Mcg Capsule, 25 MCG PO DAILY, (Reported) Clotrimazole/Betamethasone Dip 15 Gm Cream..g., 1 APPLIC TOP BID PRN for RASH, (Reported) Cyanocobalamin (Vitamin B-12) 1,000 Mcg Capsule, 1,000 MCG PO DAILY, (Reported) Fluticasone Propionate 16 Gm [place].susp, 1 SPRAY NS HS, (Reported) Fluticasone/Salmeterol 1 Each Blst.w.dev, 1 PUFF IH BID, (Reported) Furosemide 80 Mg Tablet, 80 MG PO BID, (Reported) Lisinopril 10 Mg Tablet, 10 MG PO BID, (Reported) Metolazone 2.5 Mg Tablet, 2.5 MG PO DAILY Prescribed by: VIRGIL CORNEJO on 10/29/19956 Metoprolol Succinate 25 Mg Tab.er.24h, 25 MG PO HS, (Reported) Multivitamin 1 Each Tablet, 1 EACH PO DAILY, (Reported) Pantoprazole Sodium 40 Mg Tablet.dr, 40 MG PO DAILY, (Reported) Potassium Chloride 20 Meq Tablet.er, 20 MEQ PO BID Prescribed by: VIRGIL CORNEJO on 10/29/19956 Tiotropium [place] 4 Gm Mist.inhal, 2 PUFF INH DAILY, (Reported) Patient Home Medication List Home Medication List Reviewed: Yes Review of Systems Review of Systems Constitutional: no symptoms reported EENTM: no symptoms reported Respiratory: cough, dyspnea on exertion, orthopnea, short of breath Cardiovascular: chest pain ("tightness") Gastrointestinal: no symptoms reported Genitourinary: no symptoms reported : No Musculoskeletal: no symptoms reported Skin: no symptoms reported All Other Systems Reviewed Negative Unless Noted: Yes Past Nhqsvmx-Kxciem-Cjzaaj Hx Patient Social History Alcohol Beverage of Choice: [place] Type Used: Cigarettes 2nd Hand Smoke Exposure: Yes (NONE FOR 20 YEARS) Recent Hopitalizations: No Immunizations Up To Date Tetanus Booster (TDap): Unknown Date of Pneumonia Vaccine: Feb 09, 2019 Date of Influenza Vaccine: May 12, 2019 Seasonal Allergies Seasonal Allergies: Yes Past Medical History Surgeries: Yes (Appy and hysterectomy '; CARDIAC CATHS-LAST ONE 04/12/19-NO INTERVENTION;) Appendectomy, Defibrillator, Hysterectomy, Oophorectomy Respiratory: Yes (HOME O2 AT 3L/NC;PULMONARY HTN;POSSIBLE SARCOIDOSIS;OBESITY/HYPOVENTILATION) Pneumonia, Sleep Apnea, COPD Currently Using CPAP: Yes (WITH O2) Currently Using BIPAP: No Cardiac: Yes (CHF;LBBB;MR/TR;AFIB/FLUTTER-WITH MULT. 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 No Pertinent Family Hx PSH: -CARDIAC CATH--04/11/19--NO INTERVENTION; EF 50%, NO SIGNIFICANT CAD PMH: -SEVERE MITRAL REGURGITATION/TRIUCUSPIC REGURG -MILD CAROTID DISEASE Physical Exam Vital Signs Vital Signs - First Documented 02/06/20 02/06/20 06:15 08:24 Temp 36.4 Pulse 70 Resp 24 B/P (MAP) 107/80 (89) Pulse Ox 98 O2 Delivery Room Air O2 Flow Rate 3.00 Capillary Refill : Height, Weight, BMI Height: 5'5.00" Weight: 243lbs. 0.2oz. 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 Norm as Tested Skin: Normal Color, Warm/Dry Progress/Results/Core Measures Results/Orders Lab Results Laboratory Tests Test 02/06/20 06:25 Range/Units White Blood Count 5.8 4.3-11.0 10^3/uL Red Blood Count 3.10 L 3.80-5.11 10^6/uL Hemoglobin 9.5 L 11.5-16.0 g/dL Hematocrit 30 L 35-52 % Mean Corpuscular Volume 96 80-99 fL Mean Corpuscular Hemoglobin 31 25-34 pg Mean Corpuscular Hemoglobin Concent 32 32-36 g/dL Red Cell Distribution Width 15.3 H 10.0-14.5 % Platelet Count 186 130-400 10^3/uL Mean Platelet Volume 10.5 9.0-12.2 fL Immature Granulocyte % (Auto) 0 % Neutrophils (%) (Auto) 78 H 42-75 % Lymphocytes (%) (Auto) 10 L 12-44 % Monocytes (%) (Auto) 9 0-12 % Eosinophils (%) (Auto) 2 0-10 % Basophils (%) (Auto) 0 0-10 % Neutrophils # (Auto) 4.6 1.8-7.8 10^3/uL Lymphocytes # (Auto) 0.6 L 1.0-4.0 10^3/uL Monocytes # (Auto) 0.5 0.0-1.0 10^3/uL Eosinophils # (Auto) 0.1 0.0-0.3 10^3/uL Basophils # (Auto) 0.0 0.0-0.1 10^3/uL Immature Granulocyte # (Auto) 0.0 0.0-0.1 10^3/uL Sodium Level 140 135-145 MMOL/L Potassium Level 3.9 3.6-5.0 MMOL/L Chloride Level 103 98-107 MMOL/L Carbon Dioxide Level 26 21-32 MMOL/L Anion Gap 11 5-14 MMOL/L Blood Urea Nitrogen 43 H 7-18 MG/DL Creatinine 1.74 H 0.60-1.30 MG/DL Estimat Glomerular Filtration Rate 35 BUN/Creatinine Ratio 25 Glucose Level 103 70-105 MG/DL Calcium Level 9.3 8.5-10.1 MG/DL Total Creatine Kinase 131 29-168 U/L Creatine Kinase MB 2.0 <6.6 NG/ML Troponin I 0.042 H <0.028 NG/ML B-Type Natriuretic Peptide 1195.9 H <100.0 PG/ML My Orders Orders - JARETT PRICE MD Cbc With Automated Diff (02/06/20 06:31) Basic Metabolic Panel (02/06/20 06:31) Troponin I (02/06/20 06:31) Creatine Kinase Mb (02/06/20 06:31) Creatine Kinase (02/06/20 06:31) Chest 1 View, Ap/Pa Only (02/06/20 06:31) Ekg Tracing (02/06/20 06:31) Ed Iv/Invasive Line Start (02/06/20 06:31) BNP (02/06/20 06:31) Furosemide Injection (Lasix Injection) (02/06/20 08:00) Medications Given in ED Current Medications Medications Dose Ordered Sig/Jennifer Route Start Time Stop Time Status Last Admin Dose Admin Furosemide 40 mg ONCE ONCE IVP 02/06/20 08:00 02/06/20 08:01 DC 02/06/20 08:24 40 MG Vital Signs/I&O 02/06/20 02/06/20 06:15 08:24 Temp 36.4 Pulse 70 68 Resp 24 18 B/P (MAP) 107/80 (89) 119/79 (89) Pulse Ox 98 98 O2 Delivery Room Air Nasal Cannula O2 Flow Rate 3.00 Progress Progress Note : Time: 18:36 Progress Note Patient seen and examined by me. 69yo with a history of heart failure, s/p pacer and defibrillator. Eval today includes physical exam, ekg, basic laboratory studies to include BNP. PAtient appears in mild to moderate distress secondary to SOB. Also complaining of chest tightness ongoing since last evening. Has had prior heart cath with no blockages discovered. Her china painter is Dr Wilson. She is scheduled to have some sort of valvular surgery on February 23. PAtient is not wheezing at this time. DOes tell me that Milad changed around her diuretics about 3 weeks ago - decreasing her lasix from 80mg twice a day to 40mg to once a day for acute kidney injury. She will be following up with Dr Huff (nephrology) for her kidneys. Vital signs are stable. satting 97% in her 3 liters. 0811 Patient has a rested comfortably in the emergency department awaiting laboratory results. These have been interpreted and are at the patient's normal baseline. Hemoglobin of 9 creatinine in the 1.7 range. Patient's BNP is also within acceptable limits for her history of cardiomyopathy/congestive failure. Patient has not taken her morning medications today yet. She will be given 40 mg of IV Lasix prior to discharge. I have advised her that she can take 1 extra dose of 40 mg by mouth at home today. She is comfortable with this plan of care. She is agreeable. She is advised to follow-up with Dr. 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 At this time the patient does not have any clinical or objective findings to warrant further studies from the emergency department. She does not have significant congestive failure, she does not have pneumonia, no signs of sepsis or other infectious process. Patient was also noted to have a mild increase in serum troponin. This is compared to previous as the patient always has a slight troponin leak. Previous cath April 2019 noted clean coronaries. Plan of care is again discussed with the patient. She verbalized understanding all questions are sought and answered and she is stable for discharge. Initial ECG Impression Date: Feb 06, 2020 Initial ECG Impression Time: 06:17 Initial ECG Rate: 73 Initial ECG Rhythm: Normal Sinus (paced - atrial) Initial ECG Impression: Normal Diagnostic Imaging Diagonstic Imaging: Xray Plain Films/CT/US/NM/MRI: chest Comments NAME: MARQUIS SHEEHAN [facility] REC#: [id number] PT STATUS: REG ER : 1950 PHYSICIAN: JARETT PRICE MD ADMIT DATE: 02/06/20/ER Draft Date of Exam:02/06/20 CHEST 1 VIEW, AP/PA ONLY Indication: Worsening dyspnea and fever. Comparison: 10/28/2019. Discussion: Single portable upright view of the chest was obtained. Marked cardiomegaly is stable. Left-sided pacemaker is stable. Worsening central venous congestion. Worsening bilateral mixed interstitial and alveolar infiltrates, likely developing failure. No pleural fluid or pneumothorax. No osseous abnormality. Impression: 1. Cardiomegaly with suspected failure. Dictated on workstation # [id number] Dict: 02/06/2041 Trans: 02/06/2043 [facility] [id number] Interpreted by: ALVINO MOORE MD Electronically signed by: Reviewed: Reviewed by Me Departure Impression Primary Impression: Acute exacerbation of CHF (congestive heart failure) Qualified Codes: I50.9 - Heart failure, unspecified Disposition: HOME, SELF-CARE Condition: Stable Departure-Patient Inst. Decision time for Depature: 08:16 Referrals: CAPRI CARCAMO MD (PCP) Primary Care Physician Patient Instructions: Heart Failure, Adult, CHF Add. Discharge Instructions: Continue to take your medications as previously prescribed. We have given you an extra dose of IV Lasix today. You can take your home dose this afternoon. Please follow-up tomorrow with your kidney doctor as well as your heart doctor. Please return to the emergency room for increasing shortness of breath especially with chest pain, fever, any other worsening symptoms. JARETT PRICE MD Feb 06, 2020 06:31
--- NOTE | 2020-02-06 06:47 | NUR ---
Late entry: Pt arrives with increase in her chronic shortness of breath; she reports that she has had more sob with exertion for the last couple of days. Denies fever, reports that she has a chronic cough that is normal for her. Pt uses 02 at 3LPM via NC at home and sleeps with CPAP.
[2020-02-06 06:48] LABS: BASOPHILS % (AUTO) 0 % (0-10); EOSINOPHILS # (AUTO) 0.1 10^3/uL (0.0-0.3); EOSINOPHILS % (AUTO) 2 % (0-10); HEMATOCRIT 30 % (35-52); HEMOGLOBIN 9.5 g/dL (11.5-16.0); LYMPHOCYTES # (AUTO) 0.6 10^3/uL (1.0-4.0); LYMPHOCYTES % (AUTO) 10 % (12-44); MEAN CORPUSCULAR HEMOGLOBIN 31 pg (25-34); MEAN CORPUSCULAR HGB CONC 32 g/dL (32-36); MEAN CORPUSCULAR VOLUME 96 fL (80-99); MEAN PLATELET VOLUME 10.5 fL (9.0-12.2); MONOCYTES # (AUTO) 0.5 10^3/uL (0.0-1.0); MONOCYTES % (AUTO) 9 % (0-12); NEUTROPHILS # (AUTO) 4.6 10^3/uL (1.8-7.8); NEUTROPHILS % (AUTO) 78 % (42-75); PLATELET COUNT 186 10^3/uL (130-400); WHITE BLOOD COUNT 5.8 10^3/uL (4.3-11.0)
[2020-02-06 06:52] LABS: POTASSIUM 3.9 MMOL/L (3.6-5.0)
[2020-02-06 06:53] LABS: CALCIUM 9.3 MG/DL (8.5-10.1)
[2020-02-06 06:58] LABS: CREATININE SERUM 1.74 MG/DL (0.60-1.30)
--- NOTE | 2020-02-06 07:01 | NUR ---
Report to HARRIET Lowery.
--- NOTE | 2020-02-06 07:44 | Diagnostic Imaging Report ---
Indication: Worsening dyspnea and fever. Comparison: 10/28/2019. Discussion: Single portable upright view of the chest was obtained. Marked cardiomegaly is stable. Left-sided pacemaker is stable. Worsening central venous congestion. Worsening bilateral mixed interstitial and alveolar infiltrates, likely developing failure. No pleural fluid or pneumothorax. No osseous abnormality. Impression: 1. Cardiomegaly with suspected failure. Dictated by: Dictated on workstation # [id number]
[2020-02-06] MEDS ORDERED: FUROSEMIDE 40 MG/4 ML INJ (LASIX) IVP ONE (08:00)
[2020-02-06 08:24] VITALS: BP 119/79
== END 2020-02-06 08:26 | disposition home or self-care (01) ==
LOC: EDUNIT# 06:08 → ER 06:11
DX: I13.0 Hypertensive heart and chronic kidney disease with heart failure and stage 1 through stage 4 chronic kidney disease, or unspecified chronic kidney disease (principal); I50.9 Heart failure, unspecified; N18.9 Chronic kidney disease, unspecified; J44.9 Chronic obstructive pulmonary disease, unspecified; E66.01 Morbid (severe) obesity due to excess calories; I48.91 Unspecified atrial fibrillation; Z99.81 Dependence on supplemental oxygen; Z95.9 Presence of cardiac and vascular implant and graft, unspecified; Z95.810 Presence of automatic (implantable) cardiac defibrillator; Z79.01 Long term (current) use of anticoagulants; Z79.51 Long term (current) use of inhaled steroids; Z68.34 Body mass index [BMI] 34.0-34.9, adult
CPT/HCPCS: 36415; 71045; 80048; 82550; 82553; 83880; 84484; 85025; 93005

== ENCOUNTER 2020-02-17 16:43 | Emergency (ER) | payer BC, MEDICARE ==
[~2020-02-17] VITALS: Ht 165 cm; Wt 97.2 kg
[2020-02-17] MEDS ORDERED: LIDOCAINE/EPI 2% 1:100,00 (XYLOCAINE) 20 ML VIAL INJ ONE (17:00)
--- NOTE | 2020-02-17 17:03 | ED EENT ---
History of Present Illness General Chief Complaint: Nasal Problems Stated Complaint: NOSE BLEED Source: patient Exam Limitations: no limitations History of Present Illness Date Seen by Provider: Feb 17, 2020 Time Seen by Provider: 17:00 Initial Comments To ER with a left-sided nosebleed for about 2 days intermittently. She is oxygen dependent at 3 L and she is on Eliquis 2.5 mg twice a day. She has no increase in baseline shortness of breath or fatigue to suggest anemia. Timing/Duration: abrupt Severity: moderate Location: nose Associated Symptoms: denies symptoms Allergies and Home Medications Allergies Coded Allergies: No Known Drug Allergies (Unverified , 11/03/11) Home Medications Albuterol Sulfate 18 Gm Hfa.aer.ad, 2 PUFF INH QID PRN for SHORTNESS OF BREATH, (Reported) Albuterol Sulfate 1.25 Mg/3 Ml Vial.neb, 3 ML NEB Q6H PRN for SHORTNESS OF BREATH, (Reported) Allopurinol 100 Mg Tablet, 100 MG PO DAILY, (Reported) Amiodarone HCl 200 Mg Tablet, 200 MG PO DAILY, (Reported) Apixaban 5 Mg Tablet, 5 MG PO BID, (Reported) LAST FILLED 08-26-2019 #60/30 DAY SUPPLY Calcitriol 0.25 Mcg Capsule, 0.25 MCG PO MoWeFr, (Reported) Cholecalciferol (Vitamin D3) 25 Mcg Capsule, 25 MCG PO DAILY, (Reported) Clotrimazole/Betamethasone Dip 15 Gm Cream..g., 1 APPLIC TOP BID PRN for RASH, (Reported) Cyanocobalamin (Vitamin B-12) 1,000 Mcg Capsule, 1,000 MCG PO DAILY, (Reported) Fluticasone Propionate 16 Gm [place].susp, 1 SPRAY NS HS, (Reported) Fluticasone/Salmeterol 1 Each Blst.w.dev, 1 PUFF IH BID, (Reported) Furosemide 80 Mg Tablet, 80 MG PO BID, (Reported) Lisinopril 10 Mg Tablet, 10 MG PO BID, (Reported) Metolazone 2.5 Mg Tablet, 2.5 MG PO DAILY Prescribed by: VIRGIL CORNEJO on 10/29/19 0957 Metoprolol Succinate 25 Mg Tab.er.24h, 25 MG PO HS, (Reported) Multivitamin 1 Each Tablet, 1 EACH PO DAILY, (Reported) Pantoprazole Sodium 40 Mg Tablet.dr, 40 MG PO DAILY, (Reported) Potassium Chloride 20 Meq Tablet.er, 20 MEQ PO BID Prescribed by: VIRGIL CORNEJO on 10/29/19 0957 Tiotropium [place] 4 Gm Mist.inhal, 2 PUFF INH DAILY, (Reported) Patient Home Medication List Home Medication List Reviewed: Yes Review of Systems Review of Systems Constitutional: see HPI Eyes: No Symptoms Reported Ears: No Symptoms Reported Nose: see HPI, epistaxis Mouth: no symptoms reported Throat: no symptoms reported Respiratory: no symptoms reported Cardiovascular: no symptoms reported Past Iqeofng-Daavwa-Bmzqbo Hx Patient Social History Alcohol Beverage of Choice: [place] Type Used: Cigarettes 2nd Hand Smoke Exposure: Yes (NONE FOR 20 YEARS) Recent Foreign Travel: No Contact w/Someone Who Travel: No Recent Hopitalizations: No Immunizations Up To Date Tetanus Booster (TDap): Unknown Date of Pneumonia Vaccine: Feb 09, 2019 Date of Influenza Vaccine: May 12, 2019 Seasonal Allergies Seasonal Allergies: Yes Past Medical History Surgeries: Yes (Appy and hysterectomy ; CARDIAC CATHS-LAST ONE 04/12/19-NO INTERVENTION;) Appendectomy, Defibrillator, Hysterectomy, Oophorectomy Respiratory: Yes (HOME O2 AT 3L/NC;PULMONARY HTN;POSSIBLE SARCOIDOSIS;OBESITY/HYPOVENTILATION) Pneumonia, Sleep Apnea, COPD Currently Using CPAP: Yes (WITH O2) Currently Using BIPAP: No Cardiac: Yes (CHF;LBBB;MR/TR;AFIB/FLUTTER-WITH MULT. 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 No Pertinent Family Hx PSH: -CARDIAC CATH--04/11/19--NO INTERVENTION; EF 50%, NO SIGNIFICANT CAD PMH: -SEVERE MITRAL REGURGITATION/TRIUCUSPIC REGURG -MILD CAROTID DISEASE Physical Exam Height, Weight, BMI Height: 5'5.00" Weight: 243lbs. 0.2oz. 97.994085fp; 35.00 BMI Method:Stated General Appearance: WD/WN, no apparent distress Eyes: bilateral eye normal inspection, bilateral eye PERRL, bilateral eye EOMI Ears: bilateral ear auricle normal, bilateral ear canal normal, bilateral ear TM normal Nose: other (minor but persistent oozing of blood to the left side of the septum. The right side of the septum has an eschar over an area that was bleeding with a nasal prong from her oxygen tubing robes but no active bleeding. Topical lidocaine with epinephrine was applied to a Merocel sponge inserted into the left nostril and held in place with a nose clamp. We will let this sit for a few minutes then cauterized with silver nitrate.) Mouth/Throat: normal mouth inspection, pharynx normal Neck: non-tender, full range of motion Respiratory: no respiratory distress, no accessory muscle use Neurologic/Psychiatric: alert, normal mood/affect, oriented x 3 Skin: normal color, warm/dry Progress/Results/Core Measures Results/Orders My Orders Orders - ANTOINETTE WANG APRN Lidocaine/Epi 2% 1:100,000 (Xylocaine/Ep (02/17/20 17:00) Medications Given in ED Current Medications Medications Dose Ordered Sig/Jennifer Route Start Time Stop Time Status Last Admin Dose Admin Lidocaine/ Epinephrine 20 ml ONCE ONCE INJ 02/17/20 17:00 02/17/20 17:01 DC 02/17/20 16:58 20 ML Departure Impression Primary Impression: Mild epistaxis Disposition: HOME, SELF-CARE Condition: Stable Departure-Patient Inst. Decision time for Depature: 17:03 Referrals: CAPRI CARCAMO MD (PCP/Family) Primary Care Physician Patient Instructions: Nosebleeds (DC) ANTOINETTE WANG APRN Feb 17, 2020 17:03
[2020-02-17 17:51] VITALS: BP 126/74
== END 2020-02-17 17:51 | disposition home or self-care (01) ==
LOC: EDUNIT# 16:43 → ER 16:45
DX: R04.0 Epistaxis (principal); J44.9 Chronic obstructive pulmonary disease, unspecified; I13.0 Hypertensive heart and chronic kidney disease with heart failure and stage 1 through stage 4 chronic kidney disease, or unspecified chronic kidney disease; I50.9 Heart failure, unspecified; N18.4 Chronic kidney disease, stage 4 (severe); I48.91 Unspecified atrial fibrillation; E66.01 Morbid (severe) obesity due to excess calories; Z99.81 Dependence on supplemental oxygen; Z79.01 Long term (current) use of anticoagulants; Z79.51 Long term (current) use of inhaled steroids; Z77.22 Contact with and (suspected) exposure to environmental tobacco smoke (acute) (chronic); Z68.35 Body mass index [BMI] 35.0-35.9, adult
CPT/HCPCS: 99282

== ENCOUNTER 2020-02-18 10:50 | Emergency (ER) | payer BC, MEDICARE ==
[~2020-02-18] VITALS: Ht 165 cm; Wt 97.0 kg
[2020-02-18] MEDS ORDERED: OXYMETAZOLINE (AFRIN) 0.05% NA 30 ML BTL ONE (11:50)
--- NOTE | 2020-02-18 12:05 | ED EENT ---
History of Present Illness General Chief Complaint: Nasal Problems Stated Complaint: BLOODY NOSE Nursing Triage Note: AMBULATED TO ROOM 06 WITH COMPLAINTS OF A ONGOING NOSE BLEED. WAS SEEN YESTERDAY. PT ARRIVED NOT WEARING HER OXYGEN DUE TO A NOSE CLAMP BEING USED. Source: patient Exam Limitations: no limitations History of Present Illness Date Seen by Provider: Feb 18, 2020 Time Seen by Provider: 12:02 Initial Comments This oxygen-dependent female on Eliquis 2.5 mg twice a day awaiting mitral clipping procedure at [facility] next week was here yesterday for a left-sided nosebleed which was cauterized with silver nitrate. She arrives this morning with bleeding from both nostrils. Timing/Duration: abrupt Severity: moderate Location: nose Prearrival Treatment: no prearrival treatment Associated Symptoms: denies symptoms Allergies and Home Medications Allergies Coded Allergies: No Known Drug Allergies (Unverified , 11/03/11) Home Medications Albuterol Sulfate 18 Gm Hfa.aer.ad, 2 PUFF INH QID PRN for SHORTNESS OF BREATH, (Reported) Albuterol Sulfate 1.25 Mg/3 Ml Vial.neb, 3 ML NEB Q6H PRN for SHORTNESS OF BREATH, (Reported) Allopurinol 100 Mg Tablet, 100 MG PO DAILY, (Reported) Amiodarone HCl 200 Mg Tablet, 200 MG PO DAILY, (Reported) Apixaban 5 Mg Tablet, 5 MG PO BID, (Reported) LAST FILLED 08-26-2019 #60/30 DAY SUPPLY Calcitriol 0.25 Mcg Capsule, 0.25 MCG PO MoWeFr, (Reported) Cholecalciferol (Vitamin D3) 25 Mcg Capsule, 25 MCG PO DAILY, (Reported) Clotrimazole/Betamethasone Dip 15 Gm Cream..g., 1 APPLIC TOP BID PRN for RASH, (Reported) Cyanocobalamin (Vitamin B-12) 1,000 Mcg Capsule, 1,000 MCG PO DAILY, (Reported) Fluticasone Propionate 16 Gm [place].susp, 1 SPRAY NS HS, (Reported) Fluticasone/Salmeterol 1 Each Blst.w.dev, 1 PUFF IH BID, (Reported) Furosemide 80 Mg Tablet, 80 MG PO BID, (Reported) Lisinopril 10 Mg Tablet, 10 MG PO BID, (Reported) Metolazone 2.5 Mg Tablet, 2.5 MG PO DAILY Prescribed by: VIRGIL CORNEJO on 10/29/19956 Metoprolol Succinate 25 Mg Tab.er.24h, 25 MG PO HS, (Reported) Multivitamin 1 Each Tablet, 1 EACH PO DAILY, (Reported) Pantoprazole Sodium 40 Mg Tablet.dr, 40 MG PO DAILY, (Reported) Potassium Chloride 20 Meq Tablet.er, 20 MEQ PO BID Prescribed by: VIRGIL CORNEJO on 10/29/19956 Tiotropium [place] 4 Gm Mist.inhal, 2 PUFF INH DAILY, (Reported) Patient Home Medication List Home Medication List Reviewed: Yes Review of Systems Review of Systems Constitutional: see HPI Eyes: No Symptoms Reported Ears: No Symptoms Reported Nose: see HPI, epistaxis Mouth: no symptoms reported Throat: no symptoms reported Respiratory: no symptoms reported Cardiovascular: no symptoms reported Musculoskeletal: no symptoms reported Skin: no symptoms reported Neurological: No Symptoms Reported Hematologic/Lymphatic: No Symptoms Reported Immunological/Allergic: no symptoms reported (metered gassiness head CT and 5 down here and is. I probably car actually) Past Ubwpsdm-Lhbkpl-Ofjvpe Hx Patient Social History Alcohol Use: Occasionally Uses Alcohol Beverage of Choice: [place] Recreational Drug Use: No Smoking Status: Never a Smoker Type Used: Cigarettes 2nd Hand Smoke Exposure: Yes (NONE FOR 20 YEARS) Recent Foreign Travel: No Contact w/Someone Who Travel: No Recent Infectious Disease Expo: No Recent Hopitalizations: No Immunizations Up To Date Tetanus Booster (TDap): Unknown Date of Pneumonia Vaccine: Feb 09, 2019 Date of Influenza Vaccine: May 12, 2019 Seasonal Allergies Seasonal Allergies: Yes Past Medical History Surgeries: Yes (Appy and hysterectomy '; CARDIAC CATHS-LAST ONE 04/12/19-NO INTERVENTION;) Appendectomy, Defibrillator, Hysterectomy, Oophorectomy Respiratory: Yes (HOME O2 AT 3L/NC;PULMONARY HTN;POSSIBLE SARCOIDOSIS;OBESITY/HYPOVENTILATION) Pneumonia, Sleep Apnea, COPD Currently Using CPAP: Yes (WITH O2) Currently Using BIPAP: No Cardiac: Yes (CHF;LBBB;MR/TR;AFIB/FLUTTER-WITH MULT. 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 No Pertinent Family Hx PSH: -CARDIAC CATH--04/11/19--NO INTERVENTION; EF 50%, NO SIGNIFICANT CAD PMH: -SEVERE MITRAL REGURGITATION/TRIUCUSPIC REGURG -MILD CAROTID DISEASE Physical Exam Vital Signs Vital Signs - First Documented 02/18/20 11:25 Temp 35.6 Pulse 77 Resp 16 B/P (MAP) 134/84 (101) Pulse Ox 89 O2 Delivery Room Air Height, Weight, BMI Height: 5'5.00" Weight: 243lbs. 0.2oz. 97.320004xv; 35.00 BMI Method:Stated General Appearance: WD/WN, no apparent distress Eyes: bilateral eye normal inspection, bilateral eye PERRL, bilateral eye EOMI Ears: bilateral ear auricle normal, bilateral ear canal normal, bilateral ear TM normal Nose: other (active oozing of blood from the left side of the anterior nasal septum. The right side of the nasal septum is ulcerated and with moist appearing clot over it. Each side of the nostril was packed with cotton pledgets which were saturated and Afrin.) Neck: non-tender, full range of motion Respiratory: no respiratory distress, no accessory muscle use Neurologic/Psychiatric: alert, normal mood/affect, oriented x 3 Skin: normal color, warm/dry Progress/Results/Core Measures Results/Orders Lab Results Laboratory Tests Test 02/18/20 12:05 Range/Units White Blood Count 4.7 4.3-11.0 10^3/uL Red Blood Count 2.97 L 3.80-5.11 10^6/uL Hemoglobin 9.0 L 11.5-16.0 g/dL Hematocrit 29 L 35-52 % Mean Corpuscular Volume 98 80-99 fL Mean Corpuscular Hemoglobin 30 25-34 pg Mean Corpuscular Hemoglobin Concent 31 L 32-36 g/dL Red Cell Distribution Width 14.8 H 10.0-14.5 % Platelet Count 172 130-400 10^3/uL Mean Platelet Volume 10.6 9.0-12.2 fL My Orders Orders - ANTOINETTE WANG 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 (02/18/20 21:00) Oxymetazoline 0.05% Nasal [place] (Afrin 0. (02/18/20 11:50) Tranexamic Acid Injection (Cyklokapron I (02/18/20 13:15) Medications Given in ED Current Medications Medications Dose Ordered Sig/Jennifer Route Start Time Stop Time Status Last Admin Dose Admin Tranexamic Acid 10 MG/KG ONCE ONCE IV 02/18/20 13:15 02/18/20 13:16 02/18/20 13:07 1,000 MG Vital Signs/I&O 02/18/20 11:25 Temp 35.6 Pulse 77 Resp 16 B/P (MAP) 134/84 (101) Pulse Ox 89 O2 Delivery Room Air Blood Pressure Mean: 101 Departure Communication (Admissions) 1233-still minimal blood present oozing of blood from the left anterior nasal septum. Silver nitrate was again used only to the left side. This further slowed the bleeding but it persisted. Cotton pledget was reinserted and saturated with Afrin. 1305-pledget removed, still minor persistent oozing of blood. A Merocel sponge was inserted into the left septum, saturated inTXA and will be discharged home with this in place to return tomorrow for removal. Impression Primary Impression: Epistaxis Disposition: HOME, SELF-CARE Condition: Improved Departure-Patient Inst. Decision time for Depature: 13:06 Referrals: MORGAN HAIR MD, RONALD D MD (PCP) Primary Care Physician Patient Instructions: Nosebleeds (DC) Add. Discharge Instructions: . Return to ER tomorrow to remove it for you may simply remove it at home by pulling on it. If you remove it at home and have persistent oozing of blood that is not stopped by direct pressure with a nasal clamp then once again return to the emergency room. All discharge instructions reviewed with patient and/or family. Voiced understanding. ANTOINETTE WANG APRN Feb 18, 2020 12:05
[2020-02-18 12:13] LABS: MEAN PLATELET VOLUME 10.6 fL (9.0-12.2); WHITE BLOOD COUNT 4.7 10^3/uL (4.3-11.0)
--- NOTE | 2020-02-18 12:59 | NUR ---
ANTOINETTE IN THE ROOM AT THIS TIME.
[2020-02-18] MEDS ORDERED: TRANEXAMIC ACID 100 MG/ML 10 ML INJECTION IV ONE (13:15)
[2020-02-18 13:20] VITALS: BP 136/108
[2020-02-18] MEDS ORDERED: OXYMETAZOLINE (AFRIN) 0.05% NA 30 ML BTL SCH (21:00)
== END 2020-02-18 13:20 | disposition home or self-care (01) ==
LOC: EDUNIT# 10:50 → ER 10:51
DX: R04.0 Epistaxis (principal); E66.01 Morbid (severe) obesity due to excess calories; I12.9 Hypertensive chronic kidney disease with stage 1 through stage 4 chronic kidney disease, or unspecified chronic kidney disease; I48.91 Unspecified atrial fibrillation; N18.4 Chronic kidney disease, stage 4 (severe); J44.9 Chronic obstructive pulmonary disease, unspecified; Z68.35 Body mass index [BMI] 35.0-35.9, adult; Z77.22 Contact with and (suspected) exposure to environmental tobacco smoke (acute) (chronic); Z95.9 Presence of cardiac and vascular implant and graft, unspecified; Z95.810 Presence of automatic (implantable) cardiac defibrillator; Z79.01 Long term (current) use of anticoagulants
CPT/HCPCS: 36415; 85027

== ENCOUNTER 2020-02-19 10:17 | Emergency (ER) | payer BC, MEDICARE ==
[~2020-02-19] VITALS: Ht 165.1 cm; Wt 97.1 kg
[2020-02-19 10:23] VITALS: BP 131/56
--- NOTE | 2020-02-19 10:27 | ED EENT ---
History of Present Illness General Chief Complaint: Nasal Problems Stated Complaint: FEEDING TUBE REMOVAL History of Present Illness Date Seen by Provider: Feb 19, 2020 Time Seen by Provider: 10:27 Initial Comments 69-year-old female here for removal of a nasal packing. Agent was seen here the last 2 days for epistaxis. yesterday had a nasal gauze with TXa placed. Patient was instructed to remove it today. She was nervous because of the bleeding the last 2 days and referred to be seen here to have it removed. Patient reports no bleeding/epistaxis since yesterday. Patient has no other complaints Allergies and Home Medications Allergies Coded Allergies: No Known Drug Allergies (Unverified , 11/03/11) Home Medications Albuterol Sulfate 18 Gm Hfa.aer.ad, 2 PUFF INH QID PRN for SHORTNESS OF BREATH, (Reported) Albuterol Sulfate 1.25 Mg/3 Ml Vial.neb, 3 ML NEB Q6H PRN for SHORTNESS OF BREATH, (Reported) Allopurinol 100 Mg Tablet, 100 MG PO DAILY, (Reported) Amiodarone HCl 200 Mg Tablet, 200 MG PO DAILY, (Reported) Apixaban 5 Mg Tablet, 5 MG PO BID, (Reported) LAST FILLED 08-26-2019 #60/30 DAY SUPPLY Calcitriol 0.25 Mcg Capsule, 0.25 MCG PO MoWeFr, (Reported) Cholecalciferol (Vitamin D3) 25 Mcg Capsule, 25 MCG PO DAILY, (Reported) Clotrimazole/Betamethasone Dip 15 Gm Cream..g., 1 APPLIC TOP BID PRN for RASH, ( Reported) Cyanocobalamin (Vitamin B-12) 1,000 Mcg Capsule, 1,000 MCG PO DAILY, (Reported) Fluticasone Propionate 16 Gm [place].susp, 1 SPRAY NS HS, (Reported) Fluticasone/Salmeterol 1 Each Blst.w.dev, 1 PUFF IH BID, (Reported) Furosemide 80 Mg Tablet, 80 MG PO BID, (Reported) Lisinopril 10 Mg Tablet, 10 MG PO BID, (Reported) Metolazone 2.5 Mg Tablet, 2.5 MG PO DAILY Prescribed by: VIRGIL CORNEJO on 10/29/19 0957 Metoprolol Succinate 25 Mg Tab.er.24h, 25 MG PO HS, (Reported) Multivitamin 1 Each Tablet, 1 EACH PO DAILY, (Reported) Pantoprazole Sodium 40 Mg Tablet.dr, 40 MG PO DAILY, (Reported) Potassium Chloride 20 Meq Tablet.er, 20 MEQ PO BID Prescribed by: VIRGIL CORNEJO on 10/29/19 0957 Tiotropium [place] 4 Gm Mist.inhal, 2 PUFF INH DAILY, (Reported) Patient Home Medication List Home Medication List Reviewed: Yes Review of Systems Review of Systems Constitutional: no symptoms reported Eyes: No Symptoms Reported Ears: No Symptoms Reported Nose: see HPI Mouth: no symptoms reported Throat: no symptoms reported Respiratory: no symptoms reported Cardiovascular: no symptoms reported Gastrointestinal: no symptoms reported Past Fedutmo-Hmvrul-Ygszce Hx Past Med/Social Hx: Reviewed Nursing Past Med/Soc Hx Patient Social History Alcohol Beverage of Choice: [place] Type Used: Cigarettes 2nd Hand Smoke Exposure: Yes (NONE FOR 20 YEARS) Recent Foreign Travel: No Contact w/Someone Who Travel: No Recent Hopitalizations: No Immunizations Up To Date Tetanus Booster (TDap): Unknown Date of Pneumonia Vaccine: Feb 09, 2019 Date of Influenza Vaccine: May 12, 2019 Seasonal Allergies Seasonal Allergies: Yes Past Medical History Surgeries: Yes (Appy and hysterectomy '; CARDIAC CATHS-LAST ONE 04/12/19-NO INTERVENTION;) Appendectomy, Defibrillator, Hysterectomy, Oophorectomy Respiratory: Yes (HOME O2 AT 3L/NC;PULMONARY HTN;POSSIBLE SARCOIDOSIS;OBESITY/HYPOVENTILATION) Pneumonia, Sleep Apnea, COPD Currently Using CPAP: Yes (WITH O2) Currently Using BIPAP: No Cardiac: Yes (CHF;LBBB;MR/TR;AFIB/FLUTTER-WITH MULT. 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 No Pertinent Family Hx PSH: -CARDIAC CATH--04/11/19--NO INTERVENTION; EF 50%, NO SIGNIFICANT CAD PMH: -SEVERE MITRAL REGURGITATION/TRIUCUSPIC REGURG -MILD CAROTID DISEASE Physical Exam Vital Signs Vital Signs - First Documented 02/19/20 10:23 Temp 36.1 Pulse 87 Resp 17 B/P (MAP) 131/56 (81) Pulse Ox 99 O2 Delivery Room Air O2 Flow Rate 3.00 Height, Weight, BMI Height: 5'5.00" Weight: 243lbs. 0.2oz. 97.952863jh; 35.00 BMI Method:Stated General Appearance: WD/WN, no apparent distress Eyes: bilateral eye normal inspection Nose: other (nasal sponge left naris, no active bleeding) Cardiovascular: regular rate, rhythm Respiratory: no respiratory distress, no accessory muscle use Gastrointestinal: non tender, soft Neurologic/Psychiatric: alert, normal mood/affect Skin: normal color, warm/dry Progress/Results/Core Measures Results/Orders Vital Signs/I&O 02/19/20 10:23 Temp 36.1 Pulse 87 Resp 17 B/P (MAP) 131/56 (81) Pulse Ox 99 O2 Delivery Room Air O2 Flow Rate 3.00 Progress Progress Note : Time: 10:34 Progress Note Nasal sponge was removed. There is no active bleeding at this time. Patient was monitored with no additional bleeding. Patient was discharged home in stable condition. She was instructed use of Vaseline around her nares due to her home oxygen. She should return to the ER as needed otherwise follow-up with her primary care provider as needed Departure Impression Primary Impression: Encounter for removal of nasal packing Disposition: 01 HOME, SELF-CARE Condition: Stable Departure-Patient Inst. Referrals: CAPRI CARCAMO MD (PCP/Family) Primary Care Physician Patient Instructions: Nosebleeds (DC) Add. Discharge Instructions: Thin-layer of Vaseline lowering her oxygen to your nares Follow-up with your primary care provider as needed All discharge instructions reviewed with patient and/or family. Voiced understanding. IZABELA OROZCO DO Feb 19, 2020 10:27
== END 2020-02-19 10:56 | disposition home or self-care (01) ==
LOC: EDUNIT# 10:17 → ER 10:19
DX: Z48.00 Encounter for change or removal of nonsurgical wound dressing (principal); J44.9 Chronic obstructive pulmonary disease, unspecified; I48.91 Unspecified atrial fibrillation; I13.0 Hypertensive heart and chronic kidney disease with heart failure and stage 1 through stage 4 chronic kidney disease, or unspecified chronic kidney disease; N18.4 Chronic kidney disease, stage 4 (severe); I50.9 Heart failure, unspecified; E66.01 Morbid (severe) obesity due to excess calories; Z79.01 Long term (current) use of anticoagulants; Z79.51 Long term (current) use of inhaled steroids; Z95.810 Presence of automatic (implantable) cardiac defibrillator; Z68.35 Body mass index [BMI] 35.0-35.9, adult
CPT/HCPCS: 99282

== ENCOUNTER → 2020-02-22 | Emergency (ER) | payer BC, MEDICARE ==
[~2020-02-22] VITALS: Ht 165.1 cm; Wt 97.2 kg
[~2020-02-22] MED LIST changes: +ASPIRIN 81 MG CHEW (CHILDREN'S ASA) PO ONE; +FUROSEMIDE 40 MG/4 ML INJ (LASIX) IVP ONE; +KCL 10 MEQ TAB (MICRO K) PO ONE
--- NOTE | 2020-02-22 15:00 | ED General ---
General Stated Complaint: CHEST PAIN/SOA Source of Information: Patient Exam Limitations: No Limitations History of Present Illness Date Seen by Provider: Feb 22, 2020 Time Seen by Provider: 14:58 Initial Comments To ER with chest pain and shortness of breath since awakening this morning. The pain began at 3 AM, she took a breathing treatment and went back to bed. Pain persisted until 7 AM and has been absent since 7 AM. She has known congestive heart failure and severe mitral regurgitation for which she is scheduled to have mitral clipping procedure at [facility] on of this week, 2 days from now. She had a preoperative Covid swab yesterday but doesn't know the results, she was having no symptoms. No fevers, just her chest pain that she typically gets when she has fluid overload. Timing/Duration: 4-6 Hours Severity: Mild Associated Systoms: Denies Symptoms Allergies and Home Medications Allergies Coded Allergies: No Known Drug Allergies (Unverified , 11/03/11) Home Medications Albuterol Sulfate 18 Gm Hfa.aer.ad, 2 PUFF INH QID PRN for SHORTNESS OF BREATH, (Reported) Albuterol Sulfate 1.25 Mg/3 Ml Vial.neb, 3 ML NEB Q6H PRN for SHORTNESS OF BREATH, (Reported) Allopurinol 100 Mg Tablet, 100 MG PO DAILY, (Reported) Amiodarone HCl 200 Mg Tablet, 200 MG PO DAILY, (Reported) Apixaban 5 Mg Tablet, 5 MG PO BID, (Reported) LAST FILLED 08-26-2019 #60/30 DAY SUPPLY Calcitriol 0.25 Mcg Capsule, 0.25 MCG PO MoWeFr, (Reported) Cholecalciferol (Vitamin D3) 25 Mcg Capsule, 25 MCG PO DAILY, (Reported) Clotrimazole/Betamethasone Dip 15 Gm Cream..g., 1 APPLIC TOP BID PRN for RASH, (Reported) Cyanocobalamin (Vitamin B-12) 1,000 Mcg Capsule, 1,000 MCG PO DAILY, (Reported) Fluticasone Propionate 16 Gm [place].susp, 1 SPRAY NS HS, (Reported) Fluticasone/Salmeterol 1 Each Blst.w.dev, 1 PUFF IH BID, (Reported) Furosemide 80 Mg Tablet, 80 MG PO BID, (Reported) Lisinopril 10 Mg Tablet, 10 MG PO BID, (Reported) Metolazone 2.5 Mg Tablet, 2.5 MG PO DAILY Prescribed by: VIRGIL CORNEJO on 10/29/19956 Metoprolol Succinate 25 Mg Tab.er.24h, 25 MG PO HS, (Reported) Multivitamin 1 Each Tablet, 1 EACH PO DAILY, (Reported) Pantoprazole Sodium 40 Mg Tablet.dr, 40 MG PO DAILY, (Reported) Potassium Chloride 20 Meq Tablet.er, 20 MEQ PO BID Prescribed by: VIRGIL CORNEJO on 10/29/19956 Tiotropium [place] 4 Gm Mist.inhal, 2 PUFF INH DAILY, (Reported) Patient Home Medication List Home Medication List Reviewed: Yes Review of Systems Review of Systems Constitutional: see HPI EENTM: see HPI Respiratory: no symptoms reported Cardiovascular: no symptoms reported Genitourinary: no symptoms reported Musculoskeletal: no symptoms reported Skin: no symptoms reported Psychiatric/Neurological: No Symptoms Reported Hematologic/Lymphatic: No Symptoms Reported Immunological/Allergic: no symptoms reported Past Ilkjimp-Xpgahx-Arspib Hx Patient Social History Alcohol Beverage of Choice: [place] Type Used: Cigarettes 2nd Hand Smoke Exposure: Yes (NONE FOR 20 YEARS) Recent Foreign Travel: No Contact w/Someone Who Travel: No Recent Hopitalizations: No Immunizations Up To Date Tetanus Booster (TDap): Unknown Date of Pneumonia Vaccine: Feb 09, 2019 Date of Influenza Vaccine: May 12, 2019 Seasonal Allergies Seasonal Allergies: Yes Past Medical History Surgeries: Yes (Appy and hysterectomy '; CARDIAC CATHS-LAST ONE 04/12/19-NO INTERVENTION;) Appendectomy, Defibrillator, Hysterectomy, Oophorectomy Respiratory: Yes (HOME O2 AT 3L/NC;PULMONARY HTN;POSSIBLE SARCOIDOSIS;OBESITY/HYPOVENTILATION) Pneumonia, Sleep Apnea, COPD Currently Using CPAP: Yes (WITH O2) Currently Using BIPAP: No Cardiac: Yes (CHF;LBBB;MR/TR;AFIB/FLUTTER-WITH MULT. 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 No Pertinent Family Hx PSH: -CARDIAC CATH--04/11/19--NO INTERVENTION; EF 50%, NO SIGNIFICANT CAD PMH: -SEVERE MITRAL REGURGITATION/TRIUCUSPIC REGURG -MILD CAROTID DISEASE Physical Exam Vital Signs Vital Signs - First Documented 02/22/20 14:58 Temp 36.6 Pulse 74 Resp 18 B/P (MAP) 144/74 (97) Pulse Ox 100 O2 Delivery Nasal Cannula O2 Flow Rate 2.00 Capillary Refill : Height, Weight, BMI Height: 5'5.00" Weight: 243lbs. 0.2oz. 97.037192jh; 35.00 BMI Method:Stated General Appearance: No Apparent Distress, WD/WN Eyes: Bilateral Eye Normal Inspection, Bilateral Eye PERRL, Bilateral Eye EOMI HEENT: PERRL/EOMI Respiratory: Normal Breath Sounds, No Accessory Muscle Use, No Respiratory Distress Cardiovascular: Regular Rate, Rhythm, Normal Peripheral Pulses Gastrointestinal: Non Tender, Soft Extremity: Normal Capillary Refill, Normal Inspection Neurologic/Psychiatric: Alert, Oriented x3 Skin: Normal Color, Warm/Dry Progress/Results/Core Measures Suspected Sepsis SIRS Temperature: Pulse: Respiratory Rate: Laboratory Tests 02/22/20 15:05: White Blood Count 6.4 Blood Pressure / Mean: Laboratory Tests 02/22/20 15:05: Creatinine 1.78H, INR Comment 1.0, Platelet Count 191, Total Bilirubin 1.0 Results/Orders Lab Results Laboratory Tests Test 02/22/20 15:05 02/22/20 17:32 Range/Units White Blood Count 6.4 4.3-11.0 10^3/uL Red Blood Count 2.75 L 3.80-5.11 10^6/uL Hemoglobin 8.4 L 11.5-16.0 g/dL Hematocrit 27 L 35-52 % Mean Corpuscular Volume 98 80-99 fL Mean Corpuscular Hemoglobin 31 25-34 pg Mean Corpuscular Hemoglobin Concent 31 L 32-36 g/dL Red Cell Distribution Width 14.9 H 10.0-14.5 % Platelet Count 191 130-400 10^3/uL Mean Platelet Volume 10.5 9.0-12.2 fL Immature Granulocyte % (Auto) 0 % Neutrophils (%) (Auto) 81 H 42-75 % Lymphocytes (%) (Auto) 9 L 12-44 % Monocytes (%) (Auto) 8 0-12 % Eosinophils (%) (Auto) 1 0-10 % Basophils (%) (Auto) 1 0-10 % Neutrophils # (Auto) 5.2 1.8-7.8 10^3/uL Lymphocytes # (Auto) 0.6 L 1.0-4.0 10^3/uL Monocytes # (Auto) 0.5 0.0-1.0 10^3/uL Eosinophils # (Auto) 0.1 0.0-0.3 10^3/uL Basophils # (Auto) 0.0 0.0-0.1 10^3/uL Immature Granulocyte # (Auto) 0.0 0.0-0.1 10^3/uL Prothrombin Time 13.5 12.2-14.7 SEC INR Comment 1.0 0.8-1.4 Activated Partial Thromboplast Time 26 24-35 SEC Sodium Level 139 135-145 MMOL/L Potassium Level 3.6 3.6-5.0 MMOL/L Chloride Level 101 98-107 MMOL/L Carbon Dioxide Level 26 21-32 MMOL/L Anion Gap 12 5-14 MMOL/L Blood Urea Nitrogen 40 H 7-18 MG/DL Creatinine 1.78 H 0.60-1.30 MG/DL Estimat Glomerular Filtration Rate 34 BUN/Creatinine Ratio 22 Glucose Level 99 70-105 MG/DL Calcium Level 8.7 8.5-10.1 MG/DL Corrected Calcium 8.6 8.5-10.1 MG/DL Magnesium Level 2.2 1.6-2.4 MG/DL Total Bilirubin 1.0 0.1-1.0 MG/DL Aspartate Amino Transf (AST/SGOT) 25 5-34 U/L Alanine Aminotransferase (ALT/SGPT) 21 0-55 U/L Alkaline Phosphatase 66 40-136 U/L Myoglobin 149.3 H 10.0-92.0 NG/ML Troponin I 0.055 H 0.059 H <0.028 NG/ML B-Type Natriuretic Peptide 1721.7 H <100.0 PG/ML Total Protein 7.4 6.4-8.2 GM/DL Albumin 4.1 3.2-4.5 GM/DL My Orders Orders - ANTOINETTE WANG APRN Cbc With Automated Diff (02/22/20 14:57) Magnesium (02/22/20 14:57) Chest 1 View, Ap/Pa Only (02/22/20 14:57) Ekg Tracing (02/22/20 14:57) Comprehensive Metabolic Panel (02/22/20 14:57) Myoglobin Serum (02/22/20 14:57) Protime With Inr (02/22/20 14:57) Partial Thromboplastin Time (02/22/20 14:57) O2 (02/22/20 14:57) Monitor-Rhythm Ecg Trace Only (02/22/20 14:57) Ed Iv/Invasive Line Start (02/22/20 14:57) BNP (02/22/20 14:57) Troponin I (02/22/20 14:57) Aspirin Chewable Tablet (Baby Aspirin Ch (02/22/20 15:00) Furosemide Injection (Lasix Injection) (02/22/20 16:00) Potassium Chloride (Tablet) (Klor Con Ta (02/22/20 16:00) Furosemide Injection (Lasix Injection) (02/22/20 16:00) Troponin I (02/22/20 17:05) Medications Given in ED Vital Signs/I&O Capillary Refill : Diagnostic Imaging Diagonstic Imaging: Xray Plain Films/CT/US/NM/MRI: chest Comments NAME: MARQUIS SHEEHAN [facility] REC#: [id number] PT STATUS: REG ER : 1950 PHYSICIAN: ANTOINETTE WANG APRN ADMIT DATE: 02/22/20/ER Draft Date of Exam:02/22/20 CHEST 1 VIEW, AP/PA ONLY INDICATION: Chest pain. COPD with difficulty breathing starting today. TECHNIQUE: Single view chest at 3:14 PM. CORRELATION STUDY: 02/06/2020. FINDINGS: The left-sided AICD remains in place. There is unchanged rather prominent cardiac enlargement. There is presence of pulmonary vascular congestion and perihilar edema appearing increased from the prior exam. Likely component of perihilar and basilar edema. Small effusions. IMPRESSION: Findings consistent with congestive heart failure, overall likely less severe from the prior exam. Dictated on workstation # [id number] Dict: 02/22/20 1516 Trans: 02/22/20 1523 [id number] Interpreted by: DONYA KOO DO Electronically signed by: Departure Communication (Admissions) 1986-she is still without chest pain. No shortness of breath when at rest. Oxygen saturation 100% on baseline supplement oxygen. Spoke with Dr. Wilson, agrees with a big dose of IV Lasix, supplemental potassium and discharged home to facilitate mitral clip procedure at [facility] days. This would also be the patient's preference. I'll do a repeat troponin at 2 hour robert. Impression Primary Impression: Acute exacerbation of CHF (congestive heart failure) Disposition: 01 HOME, SELF-CARE Condition: Improved Departure-Patient Inst. Referrals: CAPRI CARCAMO MD (PCP/Family) Primary Care Physician ANTOINETTE WANG APRN Feb 22, 2020 15:00
[2020-02-22 15:15] LABS: BASOPHILS % (AUTO) 1 % (0-10); EOSINOPHILS # (AUTO) 0.1 10^3/uL (0.0-0.3); EOSINOPHILS % (AUTO) 1 % (0-10); HEMATOCRIT 27 % (35-52); HEMOGLOBIN 8.4 g/dL (11.5-16.0); LYMPHOCYTES # (AUTO) 0.6 10^3/uL (1.0-4.0); LYMPHOCYTES % (AUTO) 9 % (12-44); MEAN CORPUSCULAR HEMOGLOBIN 31 pg (25-34); MEAN CORPUSCULAR HGB CONC 31 g/dL (32-36); MEAN CORPUSCULAR VOLUME 98 fL (80-99); MEAN PLATELET VOLUME 10.5 fL (9.0-12.2); MONOCYTES # (AUTO) 0.5 10^3/uL (0.0-1.0); MONOCYTES % (AUTO) 8 % (0-12); NEUTROPHILS # (AUTO) 5.2 10^3/uL (1.8-7.8); NEUTROPHILS % (AUTO) 81 % (42-75); PLATELET COUNT 191 10^3/uL (130-400); WHITE BLOOD COUNT 6.4 10^3/uL (4.3-11.0)
--- NOTE | 2020-02-22 15:24 | Diagnostic Imaging Report ---
INDICATION: Chest pain. COPD with difficulty breathing starting today. TECHNIQUE: Single view chest at 3:14 PM. CORRELATION STUDY: 02/06/2020. FINDINGS: The left-sided AICD remains in place. There is unchanged rather prominent cardiac enlargement. There is presence of pulmonary vascular congestion and perihilar edema appearing increased from the prior exam. Likely component of perihilar and basilar edema. Small effusions. IMPRESSION: Findings consistent with congestive heart failure, overall likely less severe from the prior exam. Dictated by: Dictated on workstation # [id number]
[2020-02-22 15:27] LABS: PROTHROMBIN TIME PATIENT 13.5 SEC (12.2-14.7)
[2020-02-22 15:28] LABS: ALBUMIN 4.1 GM/DL (3.2-4.5); POTASSIUM 3.6 MMOL/L (3.6-5.0)
[2020-02-22 15:30] LABS: CALCIUM 8.7 MG/DL (8.5-10.1)
[2020-02-22 15:31] LABS: TOTAL PROTEIN 7.4 GM/DL (6.4-8.2)
[2020-02-22 15:34] LABS: CREATININE SERUM 1.78 MG/DL (0.60-1.30)
[2020-02-22 15:37] LABS: MAGNESIUM 2.2 MG/DL (1.6-2.4)
[2020-02-22 19:00] VITALS: BP 112/71
== END ==
LOC: EDUNIT# 14:46 → ER 14:51
DX: I13.0 Hypertensive heart and chronic kidney disease with heart failure and stage 1 through stage 4 chronic kidney disease, or unspecified chronic kidney disease (principal); I50.9 Heart failure, unspecified; N18.4 Chronic kidney disease, stage 4 (severe); E66.01 Morbid (severe) obesity due to excess calories; J44.9 Chronic obstructive pulmonary disease, unspecified; I48.91 Unspecified atrial fibrillation; Z68.35 Body mass index [BMI] 35.0-35.9, adult; Z95.9 Presence of cardiac and vascular implant and graft, unspecified; Z95.810 Presence of automatic (implantable) cardiac defibrillator; Z77.22 Contact with and (suspected) exposure to environmental tobacco smoke (acute) (chronic); Z79.01 Long term (current) use of anticoagulants
CPT/HCPCS: 36415; 71045; 80053; 83735; 83874; 83880; 84484; 85025; 85610; 85730; 93005; 93041

== ENCOUNTER → 2020-04-07 | Outpatient (CLI) | payer BC, MEDICARE ==
[~2020-04-07] MED LIST changes: -AMIO200T4 PO; +AMIO200T50 PO; +AMIO200T6 PO; +APIX2.5T PO; +ASPI81TA16 PO; -ASPIRIN 81 MG CHEW (CHILDREN'S ASA) PO ONE; -FUROSEMIDE 40 MG/4 ML INJ (LASIX) IVP ONE; -KCL 10 MEQ TAB (MICRO K) PO ONE; +MELA5TAB14 PO
== END ==
LOC: LABNPT 07:05
PROVIDERS: ATTEND Internal Medicine Interventional Cardiology
DX: Z01.812 Encounter for preprocedural laboratory examination (principal); I34.0 Nonrheumatic mitral (valve) insufficiency; Z98.890 Other specified postprocedural states; Z20.828 Contact with and (suspected) exposure to other viral communicable diseases; Z95.818 Presence of other cardiac implants and grafts
CPT/HCPCS: 87635

== ENCOUNTER → 2020-04-18 | Outpatient (CLI) | payer BC, MEDICARE ==
--- NOTE | 2020-04-18 14:53 | Diagnostic Imaging Report ---
PROCEDURE: CT chest without contrast. TECHNIQUE: Multiple contiguous axial images were obtained through the chest without the use of intravenous contrast. Auto Exposure Controls were utilized during the CT exam to meet ALARA standards for radiation dose reduction. INDICATION: Shortness of breath, asthma. The previous CT chest exam of 11/30/2019 noted cardiomegaly as well as a left-sided defibrillator device in place. Those findings are again evident and no different. Coronary artery calcifications are also again visualized. There still no sign of a pericardial effusion. The prior exam also noted small (5 mm) nodular densities in both lungs. There is also evidence of scar formation in the right middle lobe and lingula. Those findings are again evident and does not seem to have changed significantly. There is no confluent pneumonia or pleural effusion identified. There is no significant mediastinal or hilar adenopathy. The thyroid gland was partially obscured by streak artifact but shows no definite abnormality. There is no obvious breast mass. The sections through the upper abdomen again show cholelithiasis but failed to show any evidence for acute cholecystitis. The bone windows are unremarkable for a fracture or for a destructive lesion. IMPRESSION: 1. There is cardiomegaly and chronic pulmonary disease but there is no sign of an acute cardiopulmonary abnormality. 2. The small nodules in both lungs seen previously are again evident and do not appear to have changed significantly. A six-month follow-up CT chest exam would be recommended for continued evaluation. 3. There is cholelithiasis but there is no sign of acute cholecystitis. Dictated by: Dictated on workstation # [id number]
== END ==
LOC: RAD 13:15
PROVIDERS: ATTEND Internal Medicine Critical Care Medicine
DX: I11.0 Hypertensive heart disease with heart failure (principal); J44.9 Chronic obstructive pulmonary disease, unspecified; K80.20 Calculus of gallbladder without cholecystitis without obstruction; I27.0 Primary pulmonary hypertension; I50.43 Acute on chronic combined systolic (congestive) and diastolic (congestive) heart failure; J30.9 Allergic rhinitis, unspecified; G47.34 Idiopathic sleep related nonobstructive alveolar hypoventilation; R91.8 Other nonspecific abnormal finding of lung field; Z20.828 Contact with and (suspected) exposure to other viral communicable diseases
CPT/HCPCS: 71250

== ENCOUNTER 2020-06-22 11:21 | Emergency (ER) | payer BC, MEDICARE ==
[~2020-06-22] VITALS: Ht 165.1 cm; Wt 94.5 kg
[~2020-06-22 11:21] MED LIST changes: -LISI-552 PO; -LISI10TA2 PO; +LISI10TA25 PO; +LISI20TA26 PO
[2020-06-22] MEDS ORDERED: OXYMETAZOLINE (AFRIN) 0.05% NA 30 ML BTL ONE (11:38)
--- NOTE | 2020-06-22 12:16 | ED EENT ---
History of Present Illness General Chief Complaint: Nasal Problems Stated Complaint: NOSEBLEED Nursing Triage Note: AMB TO ED WITH REPORTS THAT LAST STARTED WITH NOSE BLEED LAST NIGHT WORSE TODAY ON ADMIT LG AMT OF BLEEDING FROM L NARE. NOSE CLAMP PLACED CON'T TO BLEED Source: patient Exam Limitations: no limitations History of Present Illness Date Seen by Provider: Jun 22, 2020 Time Seen by Provider: 12:12 Initial Comments To ER with a left-sided nosebleed since yesterday. She is on Eliquis for atrial fibrillation. She wears oxygen via nasal cannula. She has had several nosebleeds in the past. Timing/Duration: abrupt Severity: moderate Location: nose Associated Symptoms: denies symptoms Allergies and Home Medications Allergies Coded Allergies: No Known Drug Allergies (Unverified , 11/03/11) Home Medications Albuterol Sulfate 18 Gm Hfa.aer.ad, 2 PUFF INH QID PRN for SHORTNESS OF BREATH, (Reported) Albuterol Sulfate 1.25 Mg/3 Ml Vial.neb, 3 ML NEB Q6H PRN for SHORTNESS OF BR EATH, (Reported) Allopurinol 100 Mg Tablet, 100 MG PO DAILY, (Reported) Amiodarone HCl 200 Mg Tablet, 200 MG PO DAILY, (Reported) Apixaban 2.5 Mg Tablet, 2.5 MG PO BID, (Reported) Aspirin 81 Mg Tablet.dr, 81 MG PO DAILY, (Reported) Calcitriol 0.25 Mcg Capsule, 0.25 MCG PO MoWeFr, (Reported) Cholecalciferol (Vitamin D3) 25 Mcg Capsule, 25 MCG PO DAILY, (Reported) Cyanocobalamin (Vitamin B-12) 1,000 Mcg Capsule, 1,000 MCG PO DAILY, (Reported) Fluticasone Propionate 16 Gm [place].susp, 1 SPRAY NS HS, (Reported) Fluticasone/Salmeterol 1 Each Blst.w.dev, 1 PUFF IH BID, (Reported) Furosemide 40 Mg Tablet, 40 MG PO BID, (Reported) Melatonin 5 Mg Tablet, 5 MG PO HS PRN for SLEEP, (Reported) Multivitamin 1 Each Tablet, 1 EACH PO DAILY, (Reported) Pantoprazole Sodium 40 Mg Tablet.dr, 40 MG PO BID, (Reported) Tiotropium [place] 4 Gm Mist.inhal, 2 PUFF INH DAILY, (Reported) Patient Home Medication List Home Medication List Reviewed: Yes Review of Systems Review of Systems Constitutional: see HPI Eyes: No Symptoms Reported Ears: No Symptoms Reported Nose: no symptoms reported Mouth: no symptoms reported Throat: no symptoms reported Respiratory: no symptoms reported Musculoskeletal: no symptoms reported Past Nldxcpk-[place]-Bsfwjj Hx Patient Social History Alcohol Use: Occasionally Uses Number of Drinks Today: BB Alcohol Beverage of Choice: [place] Type Used: Cigarettes 2nd Hand Smoke Exposure: Yes (NONE FOR 20 YEARS) Recent Infectious Disease Expo: No Recent Hopitalizations: No Immunizations Up To Date Tetanus Booster (TDap): Unknown Date of Pneumonia Vaccine: Feb 09, 2019 Date of Influenza Vaccine: Jan 21, 2020 Seasonal Allergies Seasonal Allergies: Yes Past Medical History Surgeries: Yes (Appy and hysterectomy ; CARDIAC CATHS-LAST ONE 04/12/19-NO INTERVENTION;) Appendectomy, Cardiac, Defibrillator, Hysterectomy, Oophorectomy Respiratory: Yes (HOME O2 AT 3L/NC;PULMONARY HTN;POSSIBLE SA RCOIDOSIS;OBESITY/HYPOVENTILATION) Pneumonia, Sleep Apnea, COPD Currently Using CPAP: Yes (WITH O2) Currently Using BIPAP: No Cardiac: Yes (CHF;LBBB;MR/TR;AFIB/FLUTTER-WITH MULT. 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 No Pertinent Family Hx PSH: -CARDIAC CATH--04/11/19--NO INTERVENTION; EF 50%, NO SIGNIFICANT CAD PMH: -SEVERE MITRAL REGURGITATION/TRIUCUSPIC REGURG -MILD CAROTID DISEASE Physical Exam Vital Signs Vital Signs - First Documented 06/22/20 11:30 Temp 35.4 Pulse 70 Resp 18 B/P (MAP) 100/67 (78) O2 Delivery Room Air Height, Weight, BMI Height: 5'5.00" Weight: 243lbs. 0.2oz. 97.366888oh; 34.00 BMI Method:Stated General Appearance: WD/WN, no apparent distress Eyes: bilateral eye normal inspection, bilateral eye PERRL, bilateral eye EOMI Ears: bilateral ear auricle normal, bilateral ear canal normal, bilateral ear TM normal Nose: active bleeding (Left side of the anterior septum has very brisk bleeding. This was suctioned with Villegas suction and cauterized with several sticks of silver nitrate which did result in hemostasis. For extra measure we then inserted a Merocel sponge.) Neck: non-tender, full range of motion Respiratory: no respiratory distress, no accessory muscle use Neurologic/Psychiatric: alert, normal mood/affect, oriented x 3 Skin: normal color, warm/dry Progress/Results/Core Measures Results/Orders Lab Results Laboratory Tests Test 06/22/20 12:17 Range/Units White Blood Count 6.2 4.3-11.0 10^3/uL Red Blood Count 2.83 L 3.80-5.11 10^6/uL Hemoglobin 7.9 L 11.5-16.0 g/dL Hematocrit 26 L 35-52 % Mean Corpuscular Volume 91 80-99 fL Mean Corpuscular Hemoglobin 28 25-34 pg Mean Corpuscular Hemoglobin Concent 31 L 32-36 g/dL Red Cell Distribution Width 18.6 H 10.0-14.5 % Platelet Count 184 130-400 10^3/uL Mean Platelet Volume 9.8 9.0-12.2 fL Immature Granulocyte % (Auto) 0 % Neutrophils (%) (Auto) 79 H 42-75 % Lymphocytes (%) (Auto) 10 L 12-44 % Monocytes (%) (Auto) 9 0-12 % Eosinophils (%) (Auto) 1 0-10 % Basophils (%) (Auto) 1 0-10 % Neutrophils # (Auto) 4.9 1.8-7.8 10^3/uL Lymphocytes # (Auto) 0.6 L 1.0-4.0 10^3/uL Monocytes # (Auto) 0.6 0.0-1.0 10^3/uL Eosinophils # (Auto) 0.1 0.0-0.3 10^3/uL Basophils # (Auto) 0.0 0.0-0.1 10^3/uL Immature Granulocyte # (Auto) 0.0 0.0-0.1 10^3/uL Sodium Level 140 135-145 MMOL/L Potassium Level 4.5 3.6-5.0 MMOL/L Chloride Level 102 98-107 MMOL/L Carbon Dioxide Level 30 21-32 MMOL/L Anion Gap 8 5-14 MMOL/L Blood Urea Nitrogen 59 H 7-18 MG/DL Creatinine 2.02 H 0.60-1.30 MG/DL Estimat Glomerular Filtration Rate 30 BUN/Creatinine Ratio 29 Glucose Level 113 H 70-105 MG/DL Calcium Level 9.1 8.5-10.1 MG/DL Corrected Calcium 9.3 8.5-10.1 MG/DL Total Bilirubin 0.6 0.1-1.0 MG/DL Aspartate Amino Transf (AST/SGOT) 24 5-34 U/L Alanine Aminotransferase (ALT/SGPT) 24 0-55 U/L Alkaline Phosphatase 58 40-136 U/L Total Protein 6.8 6.4-8.2 GM/DL Albumin 3.7 3.2-4.5 GM/DL My Orders Orders - ANTOINETTE WANG APRN Ed Iv/Invasive Line Start (06/22/20 12:47) Red Cells Leukocytes Reduced (06/22/20 12:47) Furosemide Injection (Lasix Injection) (06/22/20 13:00) Type And Screen (06/22/20 12:47) Medications Given in ED Current Medications Medications Dose Ordered Sig/Jennifer Route Start Time Stop Time Status Last Admin Dose Admin Oxymetazoline HCl 30 ml STK-MED ONCE .ROUTE 06/22/20 11:38 06/22/20 11:43 DC 06/22/20 11:47 30 ML Vital Signs/I&O 06/22/20 11:30 Temp 35.4 Pulse 70 Resp 18 B/P (MAP) 100/67 (78) O2 Delivery Room Air Blood Pressure Mean: 78 Departure Communication (Admissions) Nosebleed resolved at 1215. I am going to watch her for at least an hour. No blood in oropharynx. 1330-still no blood from the nose or the oropharynx. Hemoglobin is a little low. Given her cardiac history I will give her 1 unit or prbcs and lasix as outpatient then dc to homr. Merocel sponge remains in place and will remain in place until she returns to ER on Friday for packing removal Impression Primary Impression: Epistaxis Additional Impression: Anemia Disposition: 01 HOME, SELF-CARE Condition: Stable Departure-Patient Inst. Decision time for Depature: 12:15 Referrals: CAPRI CARCAMO MD (PCP/Family) Primary Care Physician Patient Instructions: Nosebleeds (DC) Add. Discharge Instructions: Keep the packing in place. Return to ER on Friday to have the packing re moved. Wear the oxygen mask instead of the nasal prongs in the meantime. Return to ER for any recurrent bleeding or other concerns. Antibiotics as directed. All discharge instructions reviewed with patient and/or family. Voiced understanding. Scripts Cephalexin Monohydrate (Keflex) 500 Mg Capsule 1 EACH PO TID, #15 CAP Prov: ANTOINETTE WANG APRN 06/22/20 ANTOINETTE WANG APRN Jun 22, 2020 12:15
[2020-06-22 12:27] LABS: BASOPHILS % (AUTO) 1 % (0-10); EOSINOPHILS # (AUTO) 0.1 10^3/uL (0.0-0.3); EOSINOPHILS % (AUTO) 1 % (0-10); HEMATOCRIT 26 % (35-52); HEMOGLOBIN 7.9 g/dL (11.5-16.0); LYMPHOCYTES # (AUTO) 0.6 10^3/uL (1.0-4.0); LYMPHOCYTES % (AUTO) 10 % (12-44); MEAN CORPUSCULAR HEMOGLOBIN 28 pg (25-34); MEAN CORPUSCULAR HGB CONC 31 g/dL (32-36); MEAN CORPUSCULAR VOLUME 91 fL (80-99); MEAN PLATELET VOLUME 9.8 fL (9.0-12.2); MONOCYTES # (AUTO) 0.6 10^3/uL (0.0-1.0); MONOCYTES % (AUTO) 9 % (0-12); NEUTROPHILS # (AUTO) 4.9 10^3/uL (1.8-7.8); NEUTROPHILS % (AUTO) 79 % (42-75); PLATELET COUNT 184 10^3/uL (130-400); WHITE BLOOD COUNT 6.2 10^3/uL (4.3-11.0)
[2020-06-22 12:42] LABS: ALBUMIN 3.7 GM/DL (3.2-4.5); POTASSIUM 4.5 MMOL/L (3.6-5.0)
[2020-06-22 12:44] LABS: CALCIUM 9.1 MG/DL (8.5-10.1)
[2020-06-22 12:45] LABS: TOTAL PROTEIN 6.8 GM/DL (6.4-8.2)
[2020-06-22 12:47] LABS: BILIRUBIN,TOTAL 0.6 MG/DL (0.1-1.0)
[2020-06-22 12:48] LABS: CREATININE SERUM 2.02 MG/DL (0.60-1.30)
[2020-06-22] MEDS ORDERED: FUROSEMIDE 40 MG/4 ML INJ (LASIX) IVP ONE (13:00)
[2020-06-22] MEDS ORDERED: CEPH-38 PO (13:31)
[2020-06-22 14:45] VITALS: BP 122/50
[2020-06-22 15:00] VITALS: BP 102/65
[2020-06-22] MEDS ORDERED: OXYMETAZOLINE (AFRIN) 0.05% NA 30 ML BTL SCH (21:00)
== END 2020-06-22 13:51 | disposition home or self-care (01) ==
LOC: EDUNIT# 11:21 → ER 11:23
DX: R04.0 Epistaxis (principal); D64.9 Anemia, unspecified; E66.01 Morbid (severe) obesity due to excess calories; J44.9 Chronic obstructive pulmonary disease, unspecified; I48.91 Unspecified atrial fibrillation; Z68.34 Body mass index [BMI] 34.0-34.9, adult; Z95.810 Presence of automatic (implantable) cardiac defibrillator; Z77.22 Contact with and (suspected) exposure to environmental tobacco smoke (acute) (chronic); Z95.9 Presence of cardiac and vascular implant and graft, unspecified; Z79.01 Long term (current) use of anticoagulants; Z79.82 Long term (current) use of aspirin
CPT/HCPCS: 30903; 80053; 85025; 86850; 86900; 86901; 86920; 99284; P9016; 36415

== ENCOUNTER 2020-06-22 13:45 | Outpatient (CLI) | payer BC, MEDICARE ==
[~2020-06-22] VITALS: Ht 165.1 cm; Wt 95.5 kg
[~2020-06-22 13:45] MED LIST changes: +CEPH-38 PO
[2020-06-22 13:55] VITALS: BP 122/50
[2020-06-22] MEDS ORDERED: NS IV 500 ML 500 ML ONE (14:14)
[2020-06-22] MEDS ORDERED: NS IV 500 ML 500 ML IV SCH (14:45)
[2020-06-22] MEDS ORDERED: FUROSEMIDE 40 MG/4 ML INJ (LASIX) IVP ONE (15:00)
[2020-06-22] MEDS ORDERED: FUROSEMIDE 40 MG/4 ML INJ (LASIX) ONE (17:12)
== END 2020-06-22 18:15 | disposition home or self-care (01) ==
LOC: SDC 13:45
PROVIDERS: ATTEND Nurse Practitioner Family
DX: Z01.89 Encounter for other specified special examinations (principal)
CPT/HCPCS: 36430; 96374

== ENCOUNTER 2020-06-24 12:17 | Emergency (ER) | payer BC, MEDICARE ==
[~2020-06-24] VITALS: Ht 165 cm; Wt 95.0 kg
[2020-06-24 12:25] VITALS: BP 110/57
--- NOTE | 2020-06-24 12:43 | ED EENT ---
History of Present Illness General Chief Complaint: Nasal Problems Stated Complaint: NOSE PLUG REMOVED Nursing Triage Note: PT AMB TO FT1. PT STATES HERE TO HAVE NASAL PACKING REMOVED FROM L NARES THAT WAS PLACE ON 06/22. PT DENIES FURTHER BLEEDING AT THIS X. Source: patient Exam Limitations: no limitations History of Present Illness Date Seen by Provider: Jun 24, 2020 Time Seen by Provider: 12:38 Initial Comments This is a well appearing 69 yo female who presented to the ED for removal of nasal packing. Reports no physical complaints. Allergies and Home Medications Allergies Coded Allergies: No Known Drug Allergies (Unverified , 11/03/11) Home Medications Albuterol Sulfate 18 Gm Hfa.aer.ad, 2 PUFF INH QID PRN for SHORTNESS OF BREATH, (Reported) Albuterol Sulfate 1.25 Mg/3 Ml Vial.neb, 3 ML NEB Q6H PRN for SHORTNESS OF BREATH, (Reported) Allopurinol 100 Mg Tablet, 100 MG PO DAILY, (Reported) Amiodarone HCl 200 Mg Tablet, 200 MG PO DAILY, (Reported) Apixaban 2.5 Mg Tablet, 2.5 MG PO BID, (Reported) Aspirin 81 Mg Tablet.dr, 81 MG PO DAILY, (Reported) Calcitriol 0.25 Mcg Capsule, 0.25 MCG PO MoWeFr, (Reported) Cephalexin Monohydrate 500 Mg Capsule, 1 EACH PO TID Prescribed by: ANTOINETTE WANG on 06/22/20 1331 Cholecalciferol (Vitamin D3) 25 Mcg Capsule, 25 MCG PO DAILY, (Reported) Cyanocobalamin (Vitamin B-12) 1,000 Mcg Capsule, 1,000 MCG PO DAILY, (Reported) Fluticasone Propionate 16 Gm [place].susp, 1 SPRAY NS HS, (Reported) Fluticasone/Salmeterol 1 Each Blst.w.dev, 1 PUFF IH BID, (Reported) Furosemide 40 Mg Tablet, 40 MG PO BID, (Reported) Melatonin 5 Mg Tablet, 5 MG PO HS PRN for SLEEP, (Reported) Multivitamin 1 Each Tablet, 1 EACH PO DAILY, (Reported) Pantoprazole Sodium 40 Mg Tablet.dr, 40 MG PO BID, (Reported) Tiotropium [place] 4 Gm Mist.inhal, 2 PUFF INH DAILY, (Reported) Patient Home Medication List Home Medication List Reviewed: Yes Review of Systems Review of Systems Constitutional: no symptoms reported Eyes: No Symptoms Reported Ears: No Symptoms Reported Nose: no symptoms reported Mouth: no symptoms reported Throat: no symptoms reported Respiratory: no symptoms reported Cardiovascular: no symptoms reported Gastrointestinal: no symptoms reported Musculoskeletal: no symptoms reported Skin: no symptoms reported Neurological: No Symptoms Reported Hematologic/Lymphatic: No Symptoms Reported Immunological/Allergic: no symptoms reported Past Tabparo-Oncmbw-Hjojou Hx Patient Social History Alcohol Use: Rarely Uses Number of Drinks Today: BB Alcohol Beverage of Choice: [place] Smoking Status: Former Smoker Type Used: Cigarettes 2nd Hand Smoke Exposure: Yes (NONE FOR 20 YEARS) Recent Infectious Disease Expo: No Recent Hopitalizations: No Immunizations Up To Date Tetanus Booster (TDap): Unknown Date of Pneumonia Vaccine: Feb 09, 2019 Date of Influenza Vaccine: Jan 21, 2020 Seasonal Allergies Seasonal Allergies: Yes Past Medical History Surgeries: Yes (Appy and hysterectomy ; CARDIAC CATHS-LAST ONE 04/12/19-NO INTERVENTION;) Appendectomy, Cardiac, Defibrillator, Hysterectomy, Oophorectomy Respiratory: Yes (HOME O2 AT 3L/NC;PULMONARY HTN;POSSIBLE SARCOIDOSIS;OBESITY/HYPOVENTILATION) Pneumonia, Sleep Apnea, COPD Currently Using CPAP: Yes (WITH O2) Currently Using BIPAP: No Cardiac: Yes (CHF;LBBB;MR/TR;AFIB/FLUTTER-WITH MULT. 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 No Pertinent Family Hx PSH: -CARDIAC CATH--04/11/19--NO INTERVENTION; EF 50%, NO SIGNIFICANT CAD PMH: -SEVERE MITRAL REGURGITATION/TRIUCUSPIC REGURG -MILD CAROTID DISEASE Physical Exam Vital Signs Vital Signs - First Documented 06/24/20 12:25 Temp 36.4 Pulse 71 Resp 18 B/P (MAP) 110/57 (74) Pulse Ox 95 O2 Flow Rate 3.00 Height, Weight, BMI Height: 5'5.00" Weight: 243lbs. 0.2oz. 97.603811sw; 34.00 BMI Method:Stated General Appearance: WD/WN, no apparent distress Eyes: bilateral eye normal inspection, bilateral eye EOMI Nose: No active bleeding, No discharge; dried blood Mouth/Throat: normal mouth inspection, pharynx normal Neck: full range of motion, normal inspection Neurologic/Psychiatric: alert, normal mood/affect, oriented x 3 Skin: normal color, warm/dry Progress/Results/Core Measures Results/Orders Vital Signs/I&O 06/24/20 12:25 Temp 36.4 Pulse 71 Resp 18 B/P (MAP) 110/57 (74) Pulse Ox 95 O2 Flow Rate 3.00 Blood Pressure Mean: 74 Progress Progress Note : Progress Note Nasal packing removed with no active bleeding appreciated. Observed for 15 m inutes. Provided contact information for Dr. Jolly office due to persistent nose bleeds. Departure Impression Primary Impression: Encounter for removal of nasal packing Disposition: 01 HOME, SELF-CARE Condition: Improved Departure-Patient Inst. Decision time for Depature: 12:43 Referrals: CAPRI CARCAMO MD (PCP) Primary Care Physician Patient Instructions: Nosebleeds (DC) Add. Discharge Instructions: 1. Follow up with Dr. Jolly for persistent nosebleeds. His office number is [phone]. 2. Return for any new, concerning, or worsening symptoms. All discharge instructions reviewed with patient and/or family. Voiced understanding. KEAGAN KIRBY GEOSPATIAL APPLICATIONS DEVELOPER Jun 24, 2020 12:43
== END 2020-06-24 13:05 | disposition home or self-care (01) ==
LOC: EDUNIT# 12:17 → ER 12:20
DX: Z48.817 Encounter for surgical aftercare following surgery on the skin and subcutaneous tissue (principal); E66.01 Morbid (severe) obesity due to excess calories; I48.91 Unspecified atrial fibrillation; J44.9 Chronic obstructive pulmonary disease, unspecified; Z68.34 Body mass index [BMI] 34.0-34.9, adult; Z87.891 Personal history of nicotine dependence; Z95.810 Presence of automatic (implantable) cardiac defibrillator; Z79.01 Long term (current) use of anticoagulants; Z79.82 Long term (current) use of aspirin

== ENCOUNTER 2020-08-22 09:50 | Emergency (ER) | payer BC, MEDICARE ==
[~2020-08-22] VITALS: Ht 165.1 cm; Wt 100.0 kg
[2020-08-22 10:08] LABS: BASOPHILS % (AUTO) 0 % (0-10); EOSINOPHILS # (AUTO) 0.1 10^3/uL (0.0-0.3); EOSINOPHILS % (AUTO) 2 % (0-10); HEMATOCRIT 31 % (35-52); HEMOGLOBIN 9.3 g/dL (11.5-16.0); LYMPHOCYTES # (AUTO) 0.4 10^3/uL (1.0-4.0); LYMPHOCYTES % (AUTO) 6 % (12-44); MEAN CORPUSCULAR HEMOGLOBIN 28 pg (25-34); MEAN CORPUSCULAR HGB CONC 30 g/dL (32-36); MEAN CORPUSCULAR VOLUME 94 fL (80-99); MEAN PLATELET VOLUME 10.7 fL (9.0-12.2); MONOCYTES # (AUTO) 0.5 10^3/uL (0.0-1.0); MONOCYTES % (AUTO) 8 % (0-12); NEUTROPHILS % (AUTO) 84 % (42-75); PLATELET COUNT 204 10^3/uL (130-400)
[2020-08-22 10:26] LABS: ALBUMIN 4.1 GM/DL (3.2-4.5); POTASSIUM 3.7 MMOL/L (3.6-5.0)
[2020-08-22 10:27] LABS: INR 1.4 (0.8-1.4); PROTHROMBIN TIME PATIENT 17.7 SEC (12.2-14.7)
[2020-08-22 10:28] LABS: CALCIUM 9.5 MG/DL (8.5-10.1)
[2020-08-22 10:29] LABS: TOTAL PROTEIN 7.7 GM/DL (6.4-8.2)
[2020-08-22 10:32] LABS: CREATININE SERUM 2.08 MG/DL (0.60-1.30)
[2020-08-22 10:35] LABS: MAGNESIUM 2.1 MG/DL (1.6-2.4)
[2020-08-22 10:36] LABS: ANISOCYTOSIS SLIGHT; BAND NEUTROPHILS 0 %; BASOPHILS % (MANUAL) 0 %; ELLIPT/OVALOCYTES MODERATE; EOSINOPHILS % (MANUAL) 1 %; LYMPHOCYTES % (MANUAL) 9 %; MONOCYTES % (MANUAL) 6 %; NEUTROPHILS % (MANUAL) 84 %; POIKILOCYTOSIS SLIGHT
--- NOTE | 2020-08-22 10:39 | Diagnostic Imaging Report ---
EXAMINATION: Portable erect AP chest at 10:24 AM. INDICATION: Shortness of breath. FINDINGS: The cardiomegaly and the left-sided defibrillator device seen on the prior exam of 03/21/2020 are again evident and no different. The previous study did note that the central pulmonary vascularity and the interstitial densities were somewhat prominent and suggested mild pulmonary congestion. On this exam, those findings are again evident. The lung apices are clear. The left retrocardiac region is not well penetrated and consequently difficult to assess. The mediastinum is not widened. The osseous structures are intact. IMPRESSION: There is cardiomegaly and mild pulmonary congestion. A followup study would be recommended for continued evaluation. Dictated by: Dictated on workstation # [id number]
[2020-08-22] MEDS ORDERED: cefTRIAXone 1,000 MG/2.86 ml vial (IM ONLY) IM ONE (10:45)
[2020-08-22] MEDS ORDERED: LIDOCAINE 1% INJ 20 ML 20 ML VIAL INJ ONE (10:45)
[2020-08-22] MEDS ORDERED: PRD20T PO (12:25)
--- NOTE | 2020-08-22 12:25 | ED General ---
General Chief Complaint: Cardiac/General Problems Stated Complaint: SOB,HEART ISSUES Nursing Triage Note: TO ED PER W/C FROM HOME PMH OF CHF REPORTS HAS NOTICED INCREASE SWELLING OF LEGS AND FEELING INCREASE SOA HAS BEEN HAVEING CHEST PAIN WITH ONSET 2 WEEKS AGO. Nursing Sepsis Screen: No Definite Risk Source of Information: Patient Exam Limitations: No Limitations History of Present Illness Date Seen by Provider: Aug 22, 2020 Time Seen by Provider: 10:00 Initial Comments This 70-year-old woman with longstanding history of cardiomyopathy, CHF, and COPD presents to the emergency room with complaints of increased swelling and fullness in the chest over the past few weeks. She denies any change in cough, fever, myalgia, loss of taste or smell, diarrhea, or other symptoms of acute illness. She does take Bumex daily for her swelling. She has reported intermittent episodes of brief chest discomfort. She last had cardiac catheterization in 2018. She states Dr. Wilson is aware she is having the symptoms. She does not have chest pain at this time. Allergies and Home Medications Allergies Coded Allergies: No Known Drug Allergies (Unverified , 11/03/11) Home Medications Albuterol Sulfate 18 Gm Hfa.aer.ad, 2 PUFF INH QID PRN for SHORTNESS OF BREATH, (Reported) Albuterol Sulfate 1.25 Mg/3 Ml Vial.neb, 3 ML NEB Q6H PRN for SHORTNESS OF BREATH, (Reported) Allopurinol 100 Mg Tablet, 100 MG PO DAILY, (Reported) Amiodarone HCl 200 Mg Tablet, 200 MG PO DAILY, (Reported) Apixaban 2.5 Mg Tablet, 2.5 MG PO BID, (Reported) Aspirin 81 Mg Tablet.dr, 81 MG PO DAILY, (Reported) Calcitriol 0.25 Mcg Capsule, 0.25 MCG PO MoWeFr, (Reported) Cephalexin Monohydrate 500 Mg Capsule, 1 EACH PO TID Prescribed by: ANTOINETTE WANG on 06/22/20 1331 Cholecalciferol (Vitamin D3) 25 Mcg Capsule, 25 MCG PO DAILY, (Reported) Cyanocobalamin (Vitamin B-12) 1,000 Mcg Capsule, 1,000 MCG PO DAILY, (Reported) Fluticasone Propionate 16 Gm [place].susp, 1 SPRAY NS HS, (Reported) Fluticasone/Salmeterol 1 Each Blst.w.dev, 1 PUFF IH BID, (Reported) Furosemide 40 Mg Tablet, 40 MG PO BID, (Reported) Melatonin 5 Mg Tablet, 5 MG PO HS PRN for SLEEP, (Reported) Multivitamin 1 Each Tablet, 1 EACH PO DAILY, (Reported) Pantoprazole Sodium 40 Mg Tablet.dr, 40 MG PO BID, (Reported) Prednisone 20 Mg Tab, 40 MG PO DAILY Prescribed by: JERI HERNANDEZ on 08/22/20 1225 Tiotropium [place] 4 Gm Mist.inhal, 2 PUFF INH DAILY, (Reported) Patient Home Medication List Home Medication List Reviewed: Yes Review of Systems Review of Systems Constitutional: no symptoms reported EENTM: no symptoms reported Respiratory: see HPI Cardiovascular: see HPI Gastrointestinal: no symptoms reported Genitourinary: no symptoms reported : No Musculoskeletal: no symptoms reported Skin: no symptoms reported Psychiatric/Neurological: No Symptoms Reported Hematologic/Lymphatic: No Symptoms Reported Immunological/Allergic: no symptoms reported Past Rzasynq-Jqejqe-Wwluae Hx Past Med/Social Hx: Reviewed Nursing Past Med/Soc Hx Patient Social History Alcohol Use: Denies Use Number of Drinks Today: BB Alcohol Beverage of Choice: [place] Smoking Status: Former Smoker Type Used: Cigarettes 2nd Hand Smoke Exposure: Yes (NONE FOR 20 YEARS) Recent Infectious Disease Expo: No Recent Hopitalizations: No Immunizations Up To Date Tetanus Booster (TDap): Unknown Date of Pneumonia Vaccine: Feb 09, 2019 Date of Influenza Vaccine: Jan 21, 2020 Seasonal Allergies Seasonal Allergies: Yes Past Medical History Surgeries: Yes (Appy and hysterectomy '; CARDIAC CATHS-LAST ONE 04/12/19-NO INTERVENTION;) Appendectomy, Cardiac, Defibrillator, Hysterectomy, Oophorectomy Respiratory: Yes (HOME O2 AT 3L/NC;PULMONARY HTN;POSSIBLE SARCOIDOSIS;OBESITY/HYPOVENTILATION) Pneumonia, Sleep Apnea, COPD Currently Using CPAP: Yes (WITH O2) Currently Using BIPAP: No Cardiac: Yes (CHF;LBBB;MR/TR;AFIB/FLUTTER-WITH MULT. 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 No Pertinent Family Hx PSH: -CARDIAC CATH--04/11/19--NO INTERVENTION; EF 50%, NO SIGNIFICANT CAD PMH: -SEVERE MITRAL REGURGITATION/TRIUCUSPIC REGURG -MILD CAROTID DISEASE Physical Exam Vital Signs Vital Signs - First Documented 08/22/20 09:50 Temp 36.1 Pulse 71 Resp 18 B/P (MAP) 135/89 (104) Pulse Ox 94 O2 Delivery Nasal Cannula O2 Flow Rate 3.00 Capillary Refill : Less Than 3 Seconds Height, Weight, BMI Height: 5'5.00" Weight: 243lbs. 0.2oz. 97.826076lj; 36.00 BMI Method:Stated General Appearance: No Apparent Distress, WD/WN HEENT: PERRL/EOMI, Normal ENT Inspection Neck: Normal Inspection Respiratory: No Accessory Muscle Use, No Respiratory Distress, Wheezing (On forced expiration) Cardiovascular: Regular Rate, Rhythm, No Murmur Gastrointestinal: Normal Bowel Sounds, Non Tender, Soft Extremity: Non Tender, Swelling (Mild to moderate lower extremity edema, equal bilaterally) Neurologic/Psychiatric: Alert, Oriented x3, No Motor/Sensory Deficits, Normal Mood/Affect, tar heat exchanger cleaner II-XII Norm as Tested Skin: Normal Color, Warm/Dry Progress/Results/Core Measures Suspected Sepsis Recent Fever Within 48 Hours: No Infection Criteria Present: None New/Unexplained Altered Menta: No Sepsis Screen: No Definite Risk SIRS Temperature: Pulse: 71 Respiratory Rate: 18 Laboratory Tests 08/22/20 10:00: White Blood Count 6.0 Blood Pressure 135 /89 Mean: 104 Laboratory Tests 08/22/20 10:00: Creatinine 2.08H, INR Comment 1.4, Platelet Count 204, Total Bilirubin 1.0 Results/Orders Lab Results Laboratory Tests Test 08/22/20 10:00 08/22/20 12:03 Range/Units White Blood Count 6.0 4.3-11.0 10^3/uL Red Blood Count 3.32 L 3.80-5.11 10^6/uL Hemoglobin 9.3 L 11.5-16.0 g/dL Hematocrit 31 L 35-52 % Mean Corpuscular Volume 94 80-99 fL Mean Corpuscular Hemoglobin 28 25-34 pg Mean Corpuscular Hemoglobin Concent 30 L 32-36 g/dL Red Cell Distribution Width 17.0 H 10.0-14.5 % Platelet Count 204 130-400 10^3/uL Mean Platelet Volume 10.7 9.0-12.2 fL Immature Granulocyte % (Auto) 0 % Neutrophils (%) (Auto) 84 H 42-75 % Lymphocytes (%) (Auto) 6 L 12-44 % Monocytes (%) (Auto) 8 0-12 % Eosinophils (%) (Auto) 2 0-10 % Basophils (%) (Auto) 0 0-10 % Neutrophils # (Auto) 5.0 1.8-7.8 10^3/uL Lymphocytes # (Auto) 0.4 L 1.0-4.0 10^3/uL Monocytes # (Auto) 0.5 0.0-1.0 10^3/uL Eosinophils # (Auto) 0.1 0.0-0.3 10^3/uL Basophils # (Auto) 0.0 0.0-0.1 10^3/uL Immature Granulocyte # (Auto) 0.0 0.0-0.1 10^3/uL Neutrophils % (Manual) 84 % Lymphocytes % (Manual) 9 % Monocytes % (Manual) 6 % Eosinophils % (Manual) 1 % Basophils % (Manual) 0 % Band Neutrophils 0 % Poikilocytosis SLIGHT Anisocytosis SLIGHT Elliptocytes MODERATE Prothrombin Time 17.7 H 12.2-14.7 SEC INR Comment 1.4 0.8-1.4 Activated Partial Thromboplast Time 33 24-35 SEC Sodium Level 142 135-145 MMOL/L Potassium Level 3.7 3.6-5.0 MMOL/L Chloride Level 103 98-107 MMOL/L Carbon Dioxide Level 26 21-32 MMOL/L Anion Gap 13 5-14 MMOL/L Blood Urea Nitrogen 46 H 7-18 MG/DL Creatinine 2.08 H 0.60-1.30 MG/DL Estimat Glomerular Filtration Rate 29 BUN/Creatinine Ratio 22 Glucose Level 104 70-105 MG/DL Calcium Level 9.5 8.5-10.1 MG/DL Corrected Calcium 9.4 8.5-10.1 MG/DL Magnesium Level 2.1 1.6-2.4 MG/DL Total Bilirubin 1.0 0.1-1.0 MG/DL Aspartate Amino Transf (AST/SGOT) 42 H 5-34 U/L Alanine Aminotransferase (ALT/SGPT) 44 0-55 U/L Alkaline Phosphatase 130 40-136 U/L Myoglobin 146.4 H 10.0-92.0 NG/ML Troponin I 0.057 H 0.056 H <0.028 NG/ML C-Reactive Protein High Sensitivity 1.30 H 0.00-0.50 MG/DL B-Type Natriuretic Peptide 2493.2 H <100.0 PG/ML Total Protein 7.7 6.4-8.2 GM/DL Albumin 4.1 3.2-4.5 GM/DL My Orders Orders - JERI GUTIERRES MD Cbc With Automated Diff (08/22/20 10:00) Magnesium (08/22/20 10:00) Chest 1 View, Ap/Pa Only (08/22/20 10:00) Ekg Tracing (08/22/20 10:00) Comprehensive Metabolic Panel (08/22/20 10:00) Myoglobin Serum (08/22/20 10:00) Protime With Inr (08/22/20 10:00) Partial Thromboplastin Time (08/22/20 10:00) O2 (08/22/20 10:00) Monitor-Rhythm Ecg Trace Only (08/22/20 10:00) Ed Iv/Invasive Line Start (08/22/20 10:00) Troponin I (08/22/20 10:00) Manual Differential (08/22/20 10:00) BNP (08/22/20 10:13) Hs C Reactive Protein (08/22/20 10:13) Ceftriaxone For Im Use (Rocephin For Im (08/22/20 10:45) Troponin I (08/22/20 12:00) Vital Signs/I&O 08/22/20 08/22/20 08/22/20 09:50 09:50 13:06 Temp 36.1 Pulse 71 68 Resp 18 18 B/P (MAP) 135/89 (104) 128/68 Pulse Ox 94 94 O2 Delivery Nasal Cannula Room Air Nasal Cannula O2 Flow Rate 3.00 3.00 Capillary Refill : Less Than 3 Seconds Blood Pressure Mean: 104 Progress Note : Progress Note Work-up revealed a BNP that is on the higher end of her usual values. She also had congestion on her chest x-ray. She is stable at this time on her usual 2 L of oxygen. She was advised to take an extra Bumex today and possibly again tomorrow. She did take some Lasix in addition to her Bumex last night and she thought that was helpful. Troponin was elevated. She has a history of chronic troponin elevation. It was repeated at 2 hours as a precaution and did not change. Her shortness of breath is likely multifactorial. She had tight wheezing on forced expiration indicating her COPD is not ideally controlled. She was placed on a short burst of prednisone. She was advised to follow-up with Dr. Gonzalez and Dr. Wilson as soon as possible. ECG Initial ECG Impression Date: Aug 22, 2020 Initial ECG Impression Time: 09:55 Initial ECG Rate: 70 Comment Atrial paced rhythm with no ST elevation or depression. LVH. Diagnostic Imaging Diagonstic Imaging: Xray Plain Films/CT/US/NM/MRI: chest Comments Chest x-ray viewed by me and report reviewed. See report below: NAME: MARQUIS SHEEHAN MED REC#: [id number] PT STATUS: REG ER : 1950 PHYSICIAN: JERI GUTIERRES MD ADMIT DATE: 08/22/20/ER Signed Date of Exam:08/22/20 CHEST 1 VIEW, AP/PA ONLY EXAMINATION: Portable erect AP chest at 10:24 AM. INDICATION: Shortness of breath. FINDINGS: The cardiomegaly and the left-sided defibrillator device seen on the prior exam of 03/21/2020 are again evident and no different. The previous study did note that the central pulmonary vascularity and the interstitial densities were somewhat prominent and suggested mild pulmonary congestion. On this exam, those findings are again evident. The lung apices are clear. The left retrocardiac region is not well penetrated and consequently difficult to assess. The mediastinum is not widened. The osseous structures are intact. IMPRESSION: There is cardiomegaly and mild pulmonary congestion. A followup study would be recommended for continued evaluation. Dictated by: Dictated on workstation # [id number] Dict: 08/22/20 1036 Trans: 08/22/20 1042 [id number] Interpreted by: RITA PEACOCK MD Electronically signed by: RITA PEACOCK MD 08/22/20 1042 Departure Impression Primary Impression: COPD exacerbation Additional Impression: Acute exacerbation of CHF (congestive heart failure) Qualified Codes: I50.43 - Acute on chronic combined systolic (congestive) and diastolic (congestive) heart failure Disposition: HOME, SELF-CARE Condition: Improved Departure-Patient Inst. Decision time for Depature: 12:45 Referrals: CAPRI CARCAMO MD (PCP/Family) Primary Care Physician Patient Instructions: CHF, Chronic Obstructive Pulmonary Disease (COPD) (DC) Add. Discharge Instructions: Continue your usual medications as prescribed. Take your medications when you return home. Add an additional Bumex later this afternoon. You may add an additional Bumex in the afternoon tomorrow as well if you are still having trouble with swelling and shortness of breath. Please see Dr. Huff or obtain further instructions from his office by phone as soon as possible. Please also follow-up with Dr. Wilson as soon as possible. Call with questions or concerns. Return to the emergency room for worsening symptoms. All discharge instructions reviewed with patient and/or family. Voiced understanding. Scripts Prednisone (Prednisone) 20 Mg Tab 40 MG PO DAILY, #8 TAB 0 Refills Prov: JERI GUTIERRES MD 08/22/20 Copy Copies To 1: HENRY WILSON MD [facility] CCDS Copies To 2: PHILLIP MADRIGAL JOSHUA T MD Aug 22, 2020 12:24
[2020-08-22 13:06] VITALS: BP 128/68
== END 2020-08-22 13:08 | disposition home or self-care (01) ==
LOC: EDUNIT# 09:50 → ER 09:52
DX: I13.0 Hypertensive heart and chronic kidney disease with heart failure and stage 1 through stage 4 chronic kidney disease, or unspecified chronic kidney disease (principal); I50.43 Acute on chronic combined systolic (congestive) and diastolic (congestive) heart failure; N18.4 Chronic kidney disease, stage 4 (severe); J44.1 Chronic obstructive pulmonary disease with (acute) exacerbation; I27.20 Pulmonary hypertension, unspecified; I48.91 Unspecified atrial fibrillation; G47.30 Sleep apnea, unspecified; E66.01 Morbid (severe) obesity due to excess calories; Z95.810 Presence of automatic (implantable) cardiac defibrillator; Z99.81 Dependence on supplemental oxygen; Z87.891 Personal history of nicotine dependence; Z79.82 Long term (current) use of aspirin; Z79.01 Long term (current) use of anticoagulants; Z79.51 Long term (current) use of inhaled steroids; Z79.52 Long term (current) use of systemic steroids
CPT/HCPCS: 36415; 71045; 80053; 83735; 83874; 83880; 84484; 85007; 85027; 85610; 85730; 86141; 93005; 93041

== ENCOUNTER 2020-09-14 18:37 | Emergency (ER) | payer BC, MEDICARE ==
[~2020-09-14] VITALS: Ht 165.1 cm; Wt 100.0 kg
--- NOTE | 2020-09-14 19:23 | ED General ---
General Stated Complaint: SHORTNESS OF BREATH/ COUGH Source of Information: Patient Exam Limitations: No Limitations History of Present Illness Date Seen by Provider: September 14, 2020 Time Seen by Provider: 19:21 Initial Comments To ER with reports of shortness of breath and cough for 3 days. No fevers or chills. She has CHF. She is on Bumex. She has had swelling bilateral lower extremities. She was at [facility] on Friday of last week and had normal labs and was discharged home. She was seen there for shortness of breath as well. Timing/Duration: 2-3 Days Severity: Moderate Associated Systoms: Cough Allergies and Home Medications Allergies Coded Allergies: No Known Drug Allergies (Unverified , 11/03/11) Home Medications Albuterol Sulfate 18 Gm Hfa.aer.ad, 2 PUFF INH QID PRN for SHORTNESS OF BREATH, (Reported) Albuterol Sulfate 1.25 Mg/3 Ml Vial.neb, 3 ML NEB Q6H PRN for SHORTNESS OF BREATH, (Reported) Allopurinol 100 Mg Tablet, 100 MG PO DAILY, (Reported) Amiodarone HCl 200 Mg Tablet, 200 MG PO DAILY, (Reported) Apixaban 2.5 Mg Tablet, 2.5 MG PO BID, (Reported) Aspirin 81 Mg Tablet.dr, 81 MG PO DAILY, (Reported) Calcitriol 0.25 Mcg Capsule, 0.25 MCG PO MoWeFr, (Reported) Cephalexin Monohydrate 500 Mg Capsule, 1 EACH PO TID Prescribed by: ANTOINETTE WANG on 06/22/20 1331 Cholecalciferol (Vitamin D3) 25 Mcg Capsule, 25 MCG PO DAILY, (Reported) Cyanocobalamin (Vitamin B-12) 1,000 Mcg Capsule, 1,000 MCG PO DAILY, (Reported) Fluticasone Propionate 16 Gm [place].susp, 1 SPRAY NS HS, (Reported) Fluticasone/Salmeterol 1 Each Blst.w.dev, 1 PUFF IH BID, (Reported) Furosemide 40 Mg Tablet, 40 MG PO BID, (Reported) Melatonin 5 Mg Tablet, 5 MG PO HS PRN for SLEEP, (Reported) Multivitamin 1 Each Tablet, 1 EACH PO DAILY, (Reported) Pantoprazole Sodium 40 Mg Tablet.dr, 40 MG PO BID, (Reported) Prednisone 20 Mg Tab, 40 MG PO DAILY Prescribed by: JERI HERNANDEZ on 08/22/20 1225 Tiotropium [place] 4 Gm Mist.inhal, 2 PUFF INH DAILY, (Reported) Patient Home Medication List Home Medication List Reviewed: Yes Review of Systems Review of Systems Constitutional: see HPI; No chills, No fever EENTM: see HPI Respiratory: see HPI, short of breath Cardiovascular: no symptoms reported Genitourinary: no symptoms reported Musculoskeletal: no symptoms reported Skin: no symptoms reported Hematologic/Lymphatic: No Symptoms Reported Past Tloesns-Sbntxb-Kpkioq Hx Patient Social History Alcohol Beverage of Choice: [place] Type Used: Cigarettes 2nd Hand Smoke Exposure: Yes (NONE FOR 20 YEARS) Recent Hopitalizations: No Immunizations Up To Date Tetanus Booster (TDap): Unknown Date of Pneumonia Vaccine: Feb 09, 2019 Date of Influenza Vaccine: Jan 21, 2020 Seasonal Allergies Seasonal Allergies: Yes Past Medical History Surgeries: Yes (Appy and hysterectomy ; CARDIAC CATHS-LAST ONE 04/12/19-NO INTERVENTION;) Appendectomy, Cardiac, Defibrillator, Hysterectomy, Oophorectomy Respiratory: Yes (HOME O2 AT 3L/NC;PULMONARY HTN;POSSIBLE SARCOIDOSIS;OBESITY/HYPOVENTILATION) Pneumonia, Sleep Apnea, COPD Currently Using CPAP: Yes (WITH O2) Currently Using BIPAP: No Cardiac: Yes (CHF;LBBB;MR/TR;AFIB/FLUTTER-WITH MULT. 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 No Pertinent Family Hx PSH: -CARDIAC CATH--04/11/19--NO INTERVENTION; EF 50%, NO SIGNIFICANT CAD PMH: -SEVERE MITRAL REGURGITATION/TRIUCUSPIC REGURG -MILD CAROTID DISEASE Physical Exam Vital Signs Vital Signs - First Documented 09/14/20 19:10 Temp 37.0 Pulse 70 Resp 20 B/P (MAP) 126/83 (97) Pulse Ox 93 O2 Delivery Nasal Cannula O2 Flow Rate 3.00 Capillary Refill : Height, Weight, BMI Height: 5'5.00" Weight: 243lbs. 0.2oz. 97.375405tu; 36.00 BMI Method:Stated General Appearance: No Apparent Distress, WD/WN, Other Eyes: Bilateral Eye Normal Inspection, Bilateral Eye PERRL, Bilateral Eye EOMI Neck: Full Range of Motion, Normal Inspection Respiratory: No Accessory Muscle Use, No Respiratory Distress Cardiovascular: Regular Rate, Rhythm, Normal Peripheral Pulses Gastrointestinal: Normal Bowel Sounds, Non Tender, Soft Extremity: Normal Capillary Refill, Normal Inspection Neurologic/Psychiatric: Alert, Oriented x3 Skin: Normal Color, Warm/Dry Progress/Results/Core Measures Suspected Sepsis SIRS Temperature: Pulse: Respiratory Rate: Laboratory Tests 09/14/20 19:20: White Blood Count 5.4 Blood Pressure / Mean: Laboratory Tests 09/14/20 19:20: Creatinine 2.04H, Platelet Count 193, Total Bilirubin 1.1H Results/Orders Lab Results Laboratory Tests Test 09/14/20 19:20 09/14/20 19:21 Range/Units White Blood Count 5.4 4.3-11.0 10^3/uL Red Blood Count 3.36 L 3.80-5.11 10^6/uL Hemoglobin 9.8 L 11.5-16.0 g/dL Hematocrit 32 L 35-52 % Mean Corpuscular Volume 96 80-99 fL Mean Corpuscular Hemoglobin 29 25-34 pg Mean Corpuscular Hemoglobin Concent 30 L 32-36 g/dL Red Cell Distribution Width 21.1 H 10.0-14.5 % Platelet Count 193 130-400 10^3/uL Mean Platelet Volume 11.4 9.0-12.2 fL Immature Granulocyte % (Auto) 0 % Neutrophils (%) (Auto) 85 H 42-75 % Lymphocytes (%) (Auto) 6 L 12-44 % Monocytes (%) (Auto) 7 0-12 % Eosinophils (%) (Auto) 1 0-10 % Basophils (%) (Auto) 0 0-10 % Neutrophils # (Auto) 4.6 1.8-7.8 10^3/uL Lymphocytes # (Auto) 0.3 L 1.0-4.0 10^3/uL Monocytes # (Auto) 0.4 0.0-1.0 10^3/uL Eosinophils # (Auto) 0.0 0.0-0.3 10^3/uL Basophils # (Auto) 0.0 0.0-0.1 10^3/uL Immature Granulocyte # (Auto) 0.0 0.0-0.1 10^3/uL Neutrophils % (Manual) 90 % Lymphocytes % (Manual) 5 % Monocytes % (Manual) 5 % Eosinophils % (Manual) 0 % Basophils % (Manual) 0 % Band Neutrophils 0 % Polychromasia SLIGHT Hypochromasia MODERATE Poikilocytosis MODERATE Anisocytosis MODERATE Microcytosis SLIGHT Macrocytosis MODERATE Elliptocytes MODERATE Rouleau SLIGHT Schistocytes SLIGHT Sodium Level 141 135-145 MMOL/L Potassium Level 3.8 3.6-5.0 MMOL/L Chloride Level 102 98-107 MMOL/L Carbon Dioxide Level 28 21-32 MMOL/L Anion Gap 11 5-14 MMOL/L Blood Urea Nitrogen 40 H 7-18 MG/DL Creatinine 2.04 H 0.60-1.30 MG/DL Estimat Glomerular Filtration Rate 29 BUN/Creatinine Ratio 20 Glucose Level 96 70-105 MG/DL Calcium Level 8.9 8.5-10.1 MG/DL Corrected Calcium 8.9 8.5-10.1 MG/DL Magnesium Level 2.4 1.6-2.4 MG/DL Total Bilirubin 1.1 H 0.1-1.0 MG/DL Aspartate Amino Transf (AST/SGOT) 37 H 5-34 U/L Alanine Aminotransferase (ALT/SGPT) 44 0-55 U/L Alkaline Phosphatase 167 H 40-136 U/L B-Type Natriuretic Peptide 2705.7 H <100.0 PG/ML Total Protein 7.2 6.4-8.2 GM/DL Albumin 4.0 3.2-4.5 GM/DL SARS-CoV-2 RNA (RT-PCR) Not Detected Not Detecte My Orders Orders - ANTOINETTE WANG [employer] APPRENTICE Cbc With Automated Diff (09/14/20 18:48) Comprehensive Metabolic Panel (09/14/20 18:48) BNP (09/14/20 18:48) Chest 1 View, Ap/Pa Only (09/14/20 18:48) Ekg Tracing (09/14/20 18:48) Ed Iv/Invasive Line Start (09/14/20 18:48) Magnesium (09/14/20 18:48) Covid 19 Inhouse Test (09/14/20 19:18) Promethazine/ Codeine Syrup (Phenergan W (09/14/20 19:30) Manual Differential (09/14/20 19:20) Bumetanide Tablet (Bumex Tablet) (09/14/20 20:45) Medications Given in ED Current Medications Medications Dose Ordered Sig/Jennifer Route Start Time Stop Time Status Last Admin Dose Admin Promethazine HCl/ Codeine 5 ml ONCE ONCE PO 09/14/20 19:30 09/14/20 19:31 DC 09/14/20 19:27 5 ML Vital Signs/I&O 09/14/20 19:10 Temp 37.0 Pulse 70 Resp 20 B/P (MAP) 126/83 (97) Pulse Ox 93 O2 Delivery Nasal Cannula O2 Flow Rate 3.00 Capillary Refill : Diagnostic Imaging Diagonstic Imaging: Xray Plain Films/CT/US/NM/MRI: chest Comments NAME: MARQUIS SHEEHAN MED REC#: [id number] PT STATUS: REG ER : 1950 PHYSICIAN: ANTOINETTE WANG APRN ADMIT DATE: 09/14/20/ER Draft Date of Exam:09/14/20 CHEST 1 VIEW, AP/PA ONLY INDICATION: Weakness. EXAMINATION: Frontal chest was obtained at 848 p.m. COMPARISON: 08/22/2020. FINDINGS: There is cardiomegaly with unchanged pacemaker device. There is central vascular congestion which is similar to the prior study. There is no new infiltrate, pneumothorax or pleural fluid. IMPRESSION: Cardiomegaly and central vascular congestion, similar to the prior study. Unchanged pacemaker device. No acute consolidation, pleural fluid or pneumothorax. Dictated on workstation # [id number] Dict: 09/14/202056 Trans: 09/14/202101 [id number] Interpreted by: FERNANDO ELIAS MD Electronically signed by: Departure Communication (Admissions) 2118-Discussed with pt the fluid retention. States she does eat out quite a lot. Usuallly a sandwich or burger. Likely contributing to her worsening after discharge from [facility] last week. She is on Bumex 1mg po BID. Ill increase this to 2mg po BID x3 days. Impression Primary Impression: Acute exacerbation of CHF (congestive heart failure) Disposition: 01 HOME, SELF-CARE Condition: Stable Departure-Patient Inst. Decision time for Depature: 21:22 Referrals: CAPRI CARCAMO MD (PCP/Family) Primary Care Physician Patient Instructions: CHF Add. Discharge Instructions: 1. Increase your Bumex to 2 mg twice a day (2 tablets twice a day) for 3 days. Reduce the sodium in your diet. Remember that many cooked foods from restaurants or fast foods are very high in sodium which will contribute to the swelling and subsequently the shortness of breath that you have. Your compression stockings on during the day and take them off at night. This will help quite a lot with the swelling in your legs. Copy Copies To 1: HENRY SMITH MD FACP FAC CCDS ANTOINETTE WANG APRN September 14, 2020 19:23
[2020-09-14] MEDS ORDERED: PROMETHAZINE/ CODEINE SYRUP 5 ML UDC PO ONE (19:30)
[2020-09-14 19:35] LABS: BASOPHILS % (AUTO) 0 % (0-10); EOSINOPHILS % (AUTO) 1 % (0-10); HEMATOCRIT 32 % (35-52); HEMOGLOBIN 9.8 g/dL (11.5-16.0); LYMPHOCYTES # (AUTO) 0.3 10^3/uL (1.0-4.0); LYMPHOCYTES % (AUTO) 6 % (12-44); MEAN CORPUSCULAR HEMOGLOBIN 29 pg (25-34); MEAN CORPUSCULAR HGB CONC 30 g/dL (32-36); MEAN CORPUSCULAR VOLUME 96 fL (80-99); MEAN PLATELET VOLUME 11.4 fL (9.0-12.2); MONOCYTES # (AUTO) 0.4 10^3/uL (0.0-1.0); MONOCYTES % (AUTO) 7 % (0-12); NEUTROPHILS # (AUTO) 4.6 10^3/uL (1.8-7.8); NEUTROPHILS % (AUTO) 85 % (42-75); PLATELET COUNT 193 10^3/uL (130-400); WHITE BLOOD COUNT 5.4 10^3/uL (4.3-11.0)
[2020-09-14 19:56] LABS: ANISOCYTOSIS MODERATE; BAND NEUTROPHILS 0 %; BASOPHILS % (MANUAL) 0 %; EOSINOPHILS % (MANUAL) 0 %; HYPOCHROMASIA MODERATE; LYMPHOCYTES % (MANUAL) 5 %; MICROCYTOSIS SLIGHT; MONOCYTES % (MANUAL) 5 %; NEUTROPHILS % (MANUAL) 90 %; POIKILOCYTOSIS MODERATE; POLYCHROMASIA SLIGHT
[2020-09-14 19:57] LABS: BILIRUBIN,TOTAL 1.1 MG/DL (0.1-1.0); CALCIUM 8.9 MG/DL (8.5-10.1); CREATININE SERUM 2.04 MG/DL (0.60-1.30); ELLIPT/OVALOCYTES MODERATE; MAGNESIUM 2.4 MG/DL (1.6-2.4); POTASSIUM 3.8 MMOL/L (3.6-5.0); ROULEAUX SLIGHT; SCHISTOCYTES SLIGHT; TOTAL PROTEIN 7.2 GM/DL (6.4-8.2)
[2020-09-14] MEDS ORDERED: BUMETANIDE 1 MG (BUMEX) TAB PO ONE (20:45)
--- NOTE | 2020-09-14 21:02 | Diagnostic Imaging Report ---
INDICATION: Weakness. EXAMINATION: Frontal chest was obtained at 848 p.m. COMPARISON: 08/22/2020. FINDINGS: There is cardiomegaly with unchanged pacemaker device. There is central vascular congestion which is similar to the prior study. There is no new infiltrate, pneumothorax or pleural fluid. IMPRESSION: Cardiomegaly and central vascular congestion, similar to the prior study. Unchanged pacemaker device. No acute consolidation, pleural fluid or pneumothorax. Dictated by: Dictated on workstation # [id number]
[2020-09-14 21:35] VITALS: BP 95/61
== END 2020-09-14 21:41 | disposition home or self-care (01) ==
LOC: EDUNIT# 18:37 → ER 18:41
DX: I11.0 Hypertensive heart disease with heart failure (principal); I50.9 Heart failure, unspecified; J44.9 Chronic obstructive pulmonary disease, unspecified; I48.91 Unspecified atrial fibrillation; E66.01 Morbid (severe) obesity due to excess calories; Z68.36 Body mass index [BMI] 36.0-36.9, adult; Z77.22 Contact with and (suspected) exposure to environmental tobacco smoke (acute) (chronic); Z20.822 Contact with and (suspected) exposure to COVID-19; Z79.82 Long term (current) use of aspirin; Z79.01 Long term (current) use of anticoagulants; Z79.52 Long term (current) use of systemic steroids; Z79.899 Other long term (current) drug therapy
CPT/HCPCS: 71045; 80053; 83735; 83880; 85007; 85027; 93005; 99284; U0002; 36415; 87635

== ENCOUNTER 2020-09-20 15:36 | Emergency (ER) | payer BC, MEDICARE ==
[~2020-09-20] VITALS: Ht 165.1 cm; Wt 104.5 kg
--- NOTE | 2020-09-20 15:57 | ED EENT ---
History of Present Illness General Chief Complaint: Nasal Problems Stated Complaint: NOSE BLEED Source: patient Exam Limitations: no limitations (JARETT PRICE MD) History of Present Illness Date Seen by Provider: September 20, 2020 Time Seen by Provider: 15:45 Initial Comments Patient is a 70-year-old female who presents to the emergency department today with a chief complaint of nosebleed. Patient states her nose started bleeding at about 1130 this morning. She is on blood thinners with a history of atrial fibrillation. Patient states she has done everything she can think of at home to stop her nosebleed. Patient denies any shortness of breath and is chronically on oxygen therapy. She denies any recent illnesses. All other review of systems reviewed and negative except as stated. Timing/Duration: abrupt Severity: severe Location: nose Prearrival Treatment: squeezing nostrils Associated Symptoms: denies symptoms (JARETT PRICE MD) Allergies and Home Medications Allergies Coded Allergies: No Known Drug Allergies (Unverified , 11/03/11) Home Medications Albuterol Sulfate 18 Gm Hfa.aer.ad, 2 PUFF INH QID PRN for SHORTNESS OF BREATH, (Reported) Albuterol Sulfate 1.25 Mg/3 Ml Vial.neb, 3 ML NEB Q6H PRN for SHORTNESS OF BREATH, (Reported) Allopurinol 100 Mg Tablet, 100 MG PO DAILY, (Reported) Amiodarone HCl 200 Mg Tablet, 200 MG PO DAILY, (Reported) Apixaban 2.5 Mg Tablet, 2.5 MG PO BID, (Reported) Aspirin 81 Mg Tablet.dr, 81 MG PO DAILY, (Reported) Calcitriol 0.25 Mcg Capsule, 0.25 MCG PO MoWeFr, (Reported) Cephalexin 500 Mg Tablet, 500 MG PO TID Prescribed by: JARETT PRICE on 09/20/20 1710 Cephalexin Monohydrate 500 Mg Capsule, 1 EACH PO TID Prescribed by: ANTOINETTE WANG on 06/22/20 1331 Cholecalciferol (Vitamin D3) 25 Mcg Capsule, 25 MCG PO DAILY, (Reported) Cyanocobalamin (Vitamin B-12) 1,000 Mcg Capsule, 1,000 MCG PO DAILY, (Reported) Fluticasone Propionate 16 Gm [place].susp, 1 SPRAY NS HS, (Reported) Fluticasone/Salmeterol 1 Each Blst.w.dev, 1 PUFF IH BID, (Reported) Furosemide 40 Mg Tablet, 40 MG PO BID, (Reported) Melatonin 5 Mg Tablet, 5 MG PO HS PRN for SLEEP, (Reported) Multivitamin 1 Each Tablet, 1 EACH PO DAILY, (Reported) Pantoprazole Sodium 40 Mg Tablet.dr, 40 MG PO BID, (Reported) Prednisone 20 Mg Tab, 40 MG PO DAILY Prescribed by: JERI HERNANDEZ on 08/22/20 1225 Tiotropium [place] 4 Gm Mist.inhal, 2 PUFF INH DAILY, (Reported) Patient Home Medication List Home Medication List Reviewed: Yes (JARETT PRICE MD) Review of Systems Review of Systems Constitutional: see HPI Eyes: No Symptoms Reported Ears: No Symptoms Reported Nose: epistaxis Mouth: no symptoms reported Throat: no symptoms reported Respiratory: no symptoms reported Cardiovascular: no symptoms reported (JARETT PRICE MD) All Other Systems Reviewed Negative Unless Noted: Yes (JARETT PRICE MD) Past Smvmzwh-Mejnfm-Asoedc Hx Patient Social History Alcohol Beverage of Choice: [place] Type Used: Cigarettes 2nd Hand Smoke Exposure: Yes (NONE FOR 20 YEARS) Recent Hopitalizations: No (JARETT PRICE MD) Immunizations Up To Date Tetanus Booster (TDap): Unknown Date of Pneumonia Vaccine: Feb 09, 2019 Date of Influenza Vaccine: Jan 21, 2020 (JARETT PRICE MD) Seasonal Allergies Seasonal Allergies: Yes (JARETT PRICE MD) Past Medical History Surgeries: Yes (Appy and hysterectomy '; CARDIAC CATHS-LAST ONE 04/12/19-NO INTERVENTION;) Appendectomy, Cardiac, Defibrillator, Hysterectomy, Oophorectomy Respiratory: Yes (HOME O2 AT 3L/NC;PULMONARY HTN;POSSIBLE SARCOIDOSIS;OBESITY/HYPOVENTILATION) Pneumonia, Sleep Apnea, COPD Currently Using CPAP: Yes (WITH O2) Currently Using BIPAP: No Cardiac: Yes (CHF;LBBB;MR/TR;AFIB/FLUTTER-WITH MULT. 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 No Pertinent Family Hx PSH: -CARDIAC CATH--04/11/19--NO INTERVENTION; EF 50%, NO SIGNIFICANT CAD PMH: -SEVERE MITRAL REGURGITATION/TRIUCUSPIC REGURG -MILD CAROTID DISEASE (JARETT PRICE MD) Physical Exam Vital Signs Vital Signs - First Documented 09/20/20 15:41 Temp 36.8 Pulse 70 Resp 18 Pulse Ox 94 O2 Delivery Nasal Cannula O2 Flow Rate 3.00 (KEAGAN KIRBY APRN) Height, Weight, BMI Height: 5'5.00" Weight: 243lbs. 0.2oz. 97.188457zp; 36.00 BMI Method:Stated General Appearance: WD/WN, no apparent distress Eyes: bilateral eye normal inspection, bilateral eye PERRL, bilateral eye EOMI Nose: active bleeding Mouth/Throat: other (Patient has posterior pharynx with obvious blood) Cardiovascular: regular rate, rhythm Respiratory: lungs clear, normal breath sounds, no respiratory distress, no accessory muscle use Neurologic/Psychiatric: alert, normal mood/affect, oriented x 3 Skin: normal color, warm/dry (JARETT PRICE MD) Progress/Results/Core Measures Results/Orders Lab Results Laboratory Tests Test 09/20/20 16:07 Range/Units White Blood Count 5.6 4.3-11.0 10^3/uL Red Blood Count 3.35 L 3.80-5.11 10^6/uL Hemoglobin 9.9 L 11.5-16.0 g/dL Hematocrit 32 L 35-52 % Mean Corpuscular Volume 96 80-99 fL Mean Corpuscular Hemoglobin 30 25-34 pg Mean Corpuscular Hemoglobin Concent 31 L 32-36 g/dL Red Cell Distribution Width 20.7 H 10.0-14.5 % Platelet Count 186 130-400 10^3/uL Mean Platelet Volume 11.2 9.0-12.2 fL Immature Granulocyte % (Auto) 0 % Neutrophils (%) (Auto) 83 H 42-75 % Lymphocytes (%) (Auto) 5 L 12-44 % Monocytes (%) (Auto) 11 0-12 % Eosinophils (%) (Auto) 0 0-10 % Basophils (%) (Auto) 0 0-10 % Neutrophils # (Auto) 4.7 1.8-7.8 10^3/uL Lymphocytes # (Auto) 0.3 L 1.0-4.0 10^3/uL Monocytes # (Auto) 0.6 0.0-1.0 10^3/uL Eosinophils # (Auto) 0.0 0.0-0.3 10^3/uL Basophils # (Auto) 0.0 0.0-0.1 10^3/uL Immature Granulocyte # (Auto) 0.0 0.0-0.1 10^3/uL Neutrophils % (Manual) 86 % Lymphocytes % (Manual) 7 % Monocytes % (Manual) 5 % Eosinophils % (Manual) 1 % Reactive Lymphocytes 1 % Hypochromasia SLIGHT Poikilocytosis SLIGHT Anisocytosis SLIGHT Elliptocytes SLIGHT Acanthocytes SLIGHT (KEAGAN KIRBY APRN) My Orders Orders - KEAGAN KIRBY APRN Tranexamic Acid Injection (Cyklokapron I (09/20/20 18:00) Lidocaine/Epi 1% 1:100,000 (Lidocaine 1% (09/20/20 18:00) (KEAGAN KIRBY APRN) Medications Given in ED Current Medications Medications Dose Ordered Sig/Jennifer Route Start Time Stop Time Status Last Admin Dose Admin Oxymetazoline HCl 30 ml STK-MED ONCE .ROUTE 09/20/20 16:16 09/20/20 16:25 DC 09/20/20 16:30 30 ML Tranexamic Acid ONCE ONCE NA 09/20/20 18:00 09/20/20 18:01 DC 09/20/20 17:51 100 MG (KEAGAN KIRBY APRN) Vital Signs/I&O 09/20/20 15:41 Temp 36.8 Pulse 70 Resp 18 B/P (MAP) Pulse Ox 94 O2 Delivery Nasal Cannula O2 Flow Rate 3.00 (KEAGAN KIRBY APRN) Progress Progress Note : Time: 15:57 Progress Note Patient has nasal clamp in place for about 15 minutes. Then will reassess for bleeding. 1705 After clamp was in place the patient was comfortable for about 30 to 35 minutes. I placed some Afrin in her right nare. She continued to have cessation of bleeding. She had obvious clots in the left nare and some fresh blood anteriorly in the right. She started oozing and bleeding again just as I was about to walk out of the room. I did talk to Dr. Jolly and he recommended nasal packing with Afrin. Keflex antibiotics and he will follow up to remove the pack on Friday. Patient tolerated the nasal packing. More Afrin was placed. She is comfortable. Vital signs are stable. We discussed her calling Dr. Jolly's office in the morning for a follow-up appointment on Friday. He states if she has any problems she should call the office and they can see her tomorrow afternoon if necessary. Patient's hemoglobin is 9.9. This is stable for her as she tells me that yesterday when she had her blood work checked she had a 9.8 hemoglobin. All questions are sought and answered. We will monitor the patient another 30 minutes. Anticipate discharge to home. (JARETT PRICE MD) Progress Note : Progress Note 1800: Care assumed at this time. Mix 2 parts Afrin with 1 part TXA and applied to Merocel in left nare. Will monitor for 30 to 45 minutes and removed to see if bleeding has subsided. 0: After removing packing patient with approximate 25 minutes to assess if bleeding would resume. When she attempted to get up out of the bed her nose started bleeding again in the left nare. Attempted to cauterize nose with silver nitrate stick however this was unsuccessful. Placed another Merocel packing with TXA. Will monitor for 45 minutes to an hour-1.5 hours and remove and reassess. 2049: Packing removed, noted to have slight oozing from the left nare. After waiting 10 to 15 minutes the bleeding stopped and a clot had formed. No bleeding noted in the posterior pharynx. Observed in the ER for another 30 minutes without packing. Then assisted her with ambulating around the ER. No bleeding appreciated. Reviewed discharge plan of care and she is agreeable with plan. (KEAGAN KIRBY APRN) Departure Impression Primary Impression: Mild epistaxis Disposition: HOME, SELF-CARE Condition: Stable Departure-Patient Inst. Decision time for Depature: 17:08 (JARETT PRICE MD) Referrals: CAPRI CARCAMO MD (PCP/Family) Primary Care Physician Patient Instructions: Nosebleeds (DC) Add. Discharge Instructions: Take the Keflex antibiotic 3 times daily until you follow-up with Dr. Jolly next Friday the . Keep the nasal packing in place until you follow-up with him. Please come back to the emergency department if you have any return of or worsening bleeding. You can call Dr. Quezada office tomorrow to schedule your appointment for Friday. He also stated to call the office if you experience rebleeding through the packing. Scripts Cephalexin (Cephalexin) 500 Mg Tablet 500 MG PO TID for 7 Days, #21 TAB Prov: JARETT PRICE MD 09/20/20 JARETT PRICE MD September 20, 2020 15:57 KEAGAN KIRBY APRN September 20, 2020 18:12
[2020-09-20] MEDS ORDERED: OXYMETAZOLINE (AFRIN) 0.05% NA 30 ML BTL ONE (16:16)
[2020-09-20 16:23] LABS: BASOPHILS % (AUTO) 0 % (0-10); EOSINOPHILS % (AUTO) 0 % (0-10); HEMATOCRIT 32 % (35-52); HEMOGLOBIN 9.9 g/dL (11.5-16.0); LYMPHOCYTES # (AUTO) 0.3 10^3/uL (1.0-4.0); LYMPHOCYTES % (AUTO) 5 % (12-44); MEAN CORPUSCULAR HEMOGLOBIN 30 pg (25-34); MEAN CORPUSCULAR HGB CONC 31 g/dL (32-36); MEAN CORPUSCULAR VOLUME 96 fL (80-99); MEAN PLATELET VOLUME 11.2 fL (9.0-12.2); MONOCYTES # (AUTO) 0.6 10^3/uL (0.0-1.0); MONOCYTES % (AUTO) 11 % (0-12); NEUTROPHILS # (AUTO) 4.7 10^3/uL (1.8-7.8); NEUTROPHILS % (AUTO) 83 % (42-75); PLATELET COUNT 186 10^3/uL (130-400); WHITE BLOOD COUNT 5.6 10^3/uL (4.3-11.0)
[2020-09-20 16:40] LABS: NEUTROPHILS % (MANUAL) 86 %
[2020-09-20 16:41] LABS: ACANTHOCYTES SLIGHT; ANISOCYTOSIS SLIGHT; ELLIPT/OVALOCYTES SLIGHT; EOSINOPHILS % (MANUAL) 1 %; HYPOCHROMASIA SLIGHT; LYMPHOCYTES % (MANUAL) 7 %; MONOCYTES % (MANUAL) 5 %; POIKILOCYTOSIS SLIGHT; REACTIVE LYMPHOCYTES 1 %
[2020-09-20] MEDS ORDERED: CEPH500T PO (17:10)
[2020-09-20] MEDS ORDERED: TRANEXAMIC ACID 100 MG/ML 10 ML INJECTION ONE ×2 (17:41→18:00)
[2020-09-20] MEDS ORDERED: LIDOCAINE/EPI 1%-1:100,000 (XYLOCAINE) 50 ML INJ ONE (18:00)
[2020-09-20 21:30] VITALS: BP 123/62
== END 2020-09-20 21:42 | disposition home or self-care (01) ==
LOC: EDUNIT# 15:36 → ER 15:39
DX: R04.0 Epistaxis (principal); I13.0 Hypertensive heart and chronic kidney disease with heart failure and stage 1 through stage 4 chronic kidney disease, or unspecified chronic kidney disease; N18.4 Chronic kidney disease, stage 4 (severe); I50.9 Heart failure, unspecified; D63.1 Anemia in chronic kidney disease; I48.91 Unspecified atrial fibrillation; J44.9 Chronic obstructive pulmonary disease, unspecified; E66.01 Morbid (severe) obesity due to excess calories; Z99.81 Dependence on supplemental oxygen; Z99.89 Dependence on other enabling machines and devices; Z68.36 Body mass index [BMI] 36.0-36.9, adult; Z95.810 Presence of automatic (implantable) cardiac defibrillator; Z77.22 Contact with and (suspected) exposure to environmental tobacco smoke (acute) (chronic); Z79.01 Long term (current) use of anticoagulants; Z79.82 Long term (current) use of aspirin; Z79.52 Long term (current) use of systemic steroids; Z79.51 Long term (current) use of inhaled steroids; Z79.899 Other long term (current) drug therapy
CPT/HCPCS: 30901; 36415; 85007; 85027

== ENCOUNTER 2020-09-21 10:37 | Emergency (ER) | payer BC, MEDICARE ==
[~2020-09-21] VITALS: Ht 165 cm; Wt 104.0 kg
[~2020-09-21 10:37] MED LIST changes: +CEPH500T PO
[2020-09-21] MEDS ORDERED: OXYMETAZOLINE (AFRIN) 0.05% NA 30 ML BTL ONE (10:45)
[2020-09-21 11:27] LABS: BASOPHILS % (AUTO) 0 % (0-10); EOSINOPHILS % (AUTO) 1 % (0-10); HEMATOCRIT 32 % (35-52); HEMOGLOBIN 9.5 g/dL (11.5-16.0); LYMPHOCYTES # (AUTO) 0.3 10^3/uL (1.0-4.0); LYMPHOCYTES % (AUTO) 6 % (12-44); MEAN CORPUSCULAR HEMOGLOBIN 29 pg (25-34); MEAN CORPUSCULAR HGB CONC 30 g/dL (32-36); MEAN CORPUSCULAR VOLUME 98 fL (80-99); MEAN PLATELET VOLUME 11.5 fL (9.0-12.2); MONOCYTES # (AUTO) 0.7 10^3/uL (0.0-1.0); MONOCYTES % (AUTO) 12 % (0-12); NEUTROPHILS # (AUTO) 4.8 10^3/uL (1.8-7.8); NEUTROPHILS % (AUTO) 81 % (42-75); PLATELET COUNT 182 10^3/uL (130-400)
--- NOTE | 2020-09-21 11:55 | ED EENT ---
History of Present Illness General Chief Complaint: Nasal Problems Stated Complaint: NOSEBLEED Nursing Triage Note: PT TO ROOM 8 PER W/C PT CO OF NOSE BLEED, PT HAS RHINO ROCKET PACKING IN R NOSTRIL FROM NOSEBLEED LAST NITE. PT STATES BLEEDING COMING FROM L NOSTRIL AND SWALLOWING SOME BLOOD Source: patient Exam Limitations: no limitations History of Present Illness Date Seen by Provider: September 21, 2020 Time Seen by Provider: 11:49 Initial Comments To ER with a left-sided nosebleed. She was here last night with a right-sided nosebleed and had a Merocel sponge placed in the right nostril. She was to follow-up with Dr. Jolly from ear nose and throat on Friday. (Today is ). Today she had some left-sided nosebleeding.\\She is on Eliquis. Timing/Duration: abrupt Severity: moderate Location: nose Associated Symptoms: denies symptoms Allergies and Home Medications Allergies Coded Allergies: No Known Drug Allergies (Unverified , 11/03/11) Home Medications Albuterol Sulfate 18 Gm Hfa.aer.ad, 2 PUFF INH QID PRN for SHORTNESS OF BREATH, (Reported) Albuterol Sulfate 1.25 Mg/3 Ml Vial.neb, 3 ML NEB Q6H PRN for SHORTNESS OF BREATH, (Reported) Allopurinol 100 Mg Tablet, 100 MG PO DAILY, (Reported) Amiodarone HCl 200 Mg Tablet, 200 MG PO DAILY, (Reported) Apixaban 2.5 Mg Tablet, 2.5 MG PO BID, (Reported) Aspirin 81 Mg Tablet.dr, 81 MG PO DAILY, (Reported) Calcitriol 0.25 Mcg Capsule, 0.25 MCG PO MoWeFr, (Reported) Cephalexin 500 Mg Tablet, 500 MG PO TID Prescribed by: JARETT PRICE on 09/20/20 1710 Cephalexin Monohydrate 500 Mg Capsule, 1 EACH PO TID Prescribed by: ANTOINETTE WANG on 06/22/20 1331 Cholecalciferol (Vitamin D3) 25 Mcg Capsule, 25 MCG PO DAILY, (Reported) Cyanocobalamin (Vitamin B-12) 1,000 Mcg Capsule, 1,000 MCG PO DAILY, (Reported) Fluticasone Propionate 16 Gm [place].susp, 1 SPRAY NS HS, (Reported) Fluticasone/Salmeterol 1 Each Blst.w.dev, 1 PUFF IH BID, (Reported) Furosemide 40 Mg Tablet, 40 MG PO BID, (Reported) Melatonin 5 Mg Tablet, 5 MG PO HS PRN for SLEEP, (Reported) Multivitamin 1 Each Tablet, 1 EACH PO DAILY, (Reported) Pantoprazole Sodium 40 Mg Tablet.dr, 40 MG PO BID, (Reported) Prednisone 20 Mg Tab, 40 MG PO DAILY Prescribed by: JERI HERNANDEZ on 08/22/20 1225 Tiotropium [place] 4 Gm Mist.inhal, 2 PUFF INH DAILY, (Reported) Patient Home Medication List Home Medication List Reviewed: Yes Review of Systems Review of Systems Constitutional: see HPI Eyes: No Symptoms Reported Ears: No Symptoms Reported Nose: no symptoms reported Mouth: no symptoms reported Throat: no symptoms reported Respiratory: no symptoms reported Cardiovascular: no symptoms reported Musculoskeletal: no symptoms reported Skin: no symptoms reported Neurological: No Symptoms Reported Past Lutlsns-Jsqswg-Mbfaps Hx Patient Social History Alcohol Use: Denies Use Number of Drinks Today: BB Alcohol Beverage of Choice: [place] Type Used: Cigarettes 2nd Hand Smoke Exposure: Yes (NONE FOR 20 YEARS) Recent Infectious Disease Expo: No Recent Hopitalizations: No Immunizations Up To Date Tetanus Booster (TDap): Unknown Date of Pneumonia Vaccine: Feb 09, 2019 Date of Influenza Vaccine: Jan 21, 2020 Seasonal Allergies Seasonal Allergies: Yes Past Medical History Surgeries: Yes (Appy and hysterectomy '; CARDIAC CATHS-LAST ONE 04/12/19-NO INTERVENTION;) Appendectomy, Cardiac, Defibrillator, Hysterectomy, Oophorectomy Respiratory: Yes (HOME O2 AT 3L/NC;PULMONARY HTN;POSSIBLE SARCOIDOSIS;OBESITY/HYPOVENTILATION) Pneumonia, Sleep Apnea, COPD Currently Using CPAP: Yes (WITH O2) Currently Using BIPAP: No Cardiac: Yes (CHF;LBBB;MR/TR;AFIB/FLUTTER-WITH MULT. 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 No Pertinent Family Hx PSH: -CARDIAC CATH--04/11/19--NO INTERVENTION; EF 50%, NO SIGNIFICANT CAD PMH: -SEVERE MITRAL REGURGITATION/TRIUCUSPIC REGURG -MILD CAROTID DISEASE Physical Exam Vital Signs Vital Signs - First Documented 09/21/20 10:53 Temp 36.1 Pulse 77 Resp 24 B/P (MAP) 117/57 (77) Pulse Ox 90 Height, Weight, BMI Height: 5'5.00" Weight: 243lbs. 0.2oz. 97.060331tx; 38.00 BMI Method:Stated General Appearance: WD/WN, no apparent distress Eyes: bilateral eye normal inspection, bilateral eye PERRL, bilateral eye EOMI Ears: bilateral ear auricle normal, bilateral ear canal normal, bilateral ear TM normal Nose: normal inspection, active bleeding, other (The packing was removed from the right nostril that was placed last night. There is ecchymosis/hematoma to the same location on both sides of the nasal septum at the same location. The right side does not have any active bleeding. The left side has some granulation type tissue with some slow active bleeding. Given her Eliquis and aspirin use I do not want to open these hematomas. I will have concern for developing septal perforation given her recurrent nosebleeds and oxygen use.) Mouth/Throat: normal mouth inspection, pharynx normal Neck: non-tender, full range of motion Cardiovascular: regular rate, rhythm, no murmur Respiratory: no respiratory distress, no accessory muscle use Neurologic/Psychiatric: alert, normal mood/affect, oriented x 3 Skin: normal color, warm/dry Progress/Results/Core Measures Results/Orders Lab Results Laboratory Tests Test 09/21/20 11:20 Range/Units White Blood Count 6.0 4.3-11.0 10^3/uL Red Blood Count 3.23 L 3.80-5.11 10^6/uL Hemoglobin 9.5 L 11.5-16.0 g/dL Hematocrit 32 L 35-52 % Mean Corpuscular Volume 98 80-99 fL Mean Corpuscular Hemoglobin 29 25-34 pg Mean Corpuscular Hemoglobin Concent 30 L 32-36 g/dL Red Cell Distribution Width 20.9 H 10.0-14.5 % Platelet Count 182 130-400 10^3/uL Mean Platelet Volume 11.5 9.0-12.2 fL Immature Granulocyte % (Auto) 1 % Neutrophils (%) (Auto) 81 H 42-75 % Lymphocytes (%) (Auto) 6 L 12-44 % Monocytes (%) (Auto) 12 0-12 % Eosinophils (%) (Auto) 1 0-10 % Basophils (%) (Auto) 0 0-10 % Neutrophils # (Auto) 4.8 1.8-7.8 10^3/uL Lymphocytes # (Auto) 0.3 L 1.0-4.0 10^3/uL Monocytes # (Auto) 0.7 0.0-1.0 10^3/uL Eosinophils # (Auto) 0.0 0.0-0.3 10^3/uL Basophils # (Auto) 0.0 0.0-0.1 10^3/uL Immature Granulocyte # (Auto) 0.0 0.0-0.1 10^3/uL Vital Signs/I&O 09/21/20 10:53 Temp 36.1 Pulse 77 Resp 24 B/P (MAP) 117/57 (77) Pulse Ox 90 Blood Pressure Mean: 77 Departure Communication (Admissions) right side of the nose is no longer bleeding. She looks like she is got a septal hematoma but I am hesitant to aspirate this given her anticoagulant use. The left-sided bleeding has stopped with a Merocel sponge placement and silver nitrate and aspirin. She has an appointment with Dr. Jolly on Friday. I suspect she may be working on a septal perforation. Dr. Jolly I spoke with and he agrees with not aspirating mass given the anticoagulant use and her recurrent nosebleeds. He does recommend that if she has recurrent bleed that some thrombin spray applied to the nose would be helpful. Impression Primary Impression: Epistaxis Disposition: HOME, SELF-CARE Condition: Stable Departure-Patient Inst. Decision time for Depature: 12:06 Referrals: MORGAN JOLLY MD, RONALD D MD (PCP) Primary Care Physician Patient Instructions: Nosebleeds Add. Discharge Instructions: Keep the packing in until you see Dr. Jolly on Friday. Return to ER for any concerns. All discharge instructions reviewed with patient and/or family. Voiced understanding. ANTOINETTE WANG ADVENTURE GUIDE September 21, 2020 11:54
[2020-09-21 12:15] VITALS: BP 120/62
[2020-09-21] MEDS ORDERED: OXYMETAZOLINE (AFRIN) 0.05% NA 30 ML BTL SCH (21:00)
== END 2020-09-21 12:15 | disposition home or self-care (01) ==
LOC: EDUNIT# 10:37 → ER 10:39
DX: R04.0 Epistaxis (principal); J44.9 Chronic obstructive pulmonary disease, unspecified; E66.01 Morbid (severe) obesity due to excess calories; I11.0 Hypertensive heart disease with heart failure; I50.9 Heart failure, unspecified; I48.91 Unspecified atrial fibrillation; Z68.38 Body mass index [BMI] 38.0-38.9, adult; Z77.22 Contact with and (suspected) exposure to environmental tobacco smoke (acute) (chronic); Z79.01 Long term (current) use of anticoagulants; Z79.82 Long term (current) use of aspirin; Z79.52 Long term (current) use of systemic steroids; Z79.899 Other long term (current) drug therapy
CPT/HCPCS: 36415; 85025; 99282

== ENCOUNTER 2020-09-23 18:48 | Emergency (ER) | payer BC, MEDICARE ==
[~2020-09-23] VITALS: Ht 165 cm; Wt 107.0 kg
[2020-09-23] MEDS ORDERED: TRANEXAMIC ACID 100 MG/ML 10 ML INJECTION ONE (19:30)
[2020-09-23 19:46] LABS: HEMATOCRIT 29 % (35-52); HEMOGLOBIN 9.1 g/dL (11.5-16.0); MEAN CORPUSCULAR HEMOGLOBIN 30 pg (25-34); MEAN CORPUSCULAR HGB CONC 31 g/dL (32-36); MEAN CORPUSCULAR VOLUME 96 fL (80-99); MEAN PLATELET VOLUME 11.1 fL (9.0-12.2); PLATELET COUNT 180 10^3/uL (130-400); WHITE BLOOD COUNT 6.5 10^3/uL (4.3-11.0)
[2020-09-23 19:58] LABS: INR 1.7 (0.8-1.4); PROTHROMBIN TIME PATIENT 19.9 SEC (12.2-14.7)
--- NOTE | 2020-09-23 20:09 | ED EENT ---
History of Present Illness General Chief Complaint: Nasal Problems Stated Complaint: NOSE BLEED Nursing Triage Note: Pt to ED c/o left sided nose bleed. Pt currently has packing in right nostril, pt has been seen in ED and at Dr Jolly's office this week. Allergies and Home Medications Allergies Coded Allergies: No Known Drug Allergies (Unverified , 11/03/11) Home Medications Albuterol Sulfate 18 Gm Hfa.aer.ad, 2 PUFF INH QID PRN for SHORTNESS OF BREATH, (Reported) Albuterol Sulfate 1.25 Mg/3 Ml Vial.neb, 3 ML NEB Q6H PRN for SHORTNESS OF BREATH, (Reported) Allopurinol 100 Mg Tablet, 100 MG PO DAILY, (Reported) Amiodarone HCl 200 Mg Tablet, 200 MG PO DAILY, (Reported) Apixaban 2.5 Mg Tablet, 2.5 MG PO BID, (Reported) Aspirin 81 Mg Tablet.dr, 81 MG PO DAILY, (Reported) Calcitriol 0.25 Mcg Capsule, 0.25 MCG PO MoWeFr, (Reported) Cephalexin 500 Mg Tablet, 500 MG PO TID Prescribed by: JARETT PRICE on 09/20/20 1710 Cephalexin Monohydrate 500 Mg Capsule, 1 EACH PO TID Prescribed by: ANTOINETTE WANG on 06/22/20 1331 Cholecalciferol (Vitamin D3) 25 Mcg Capsule, 25 MCG PO DAILY, (Reported) Cyanocobalamin (Vitamin B-12) 1,000 Mcg Capsule, 1,000 MCG PO DAILY, (Reported) Fluticasone Propionate 16 Gm [place].susp, 1 SPRAY NS HS, (Reported) Fluticasone/Salmeterol 1 Each Blst.w.dev, 1 PUFF IH BID, (Reported) Furosemide 40 Mg Tablet, 40 MG PO BID, (Reported) Melatonin 5 Mg Tablet, 5 MG PO HS PRN for SLEEP, (Reported) Multivitamin 1 Each Tablet, 1 EACH PO DAILY, (Reported) Pantoprazole Sodium 40 Mg Tablet.dr, 40 MG PO BID, (Reported) Prednisone 20 Mg Tab, 40 MG PO DAILY Prescribed by: JERI HERNANDEZ on 08/22/20 1225 Tiotropium [place] 4 Gm Mist.inhal, 2 PUFF INH DAILY, (Reported) Past Bthfbdw-Eldphm-Zjfoaj Hx Patient Social History Alcohol Use: Denies Use Number of Drinks Today: BB Alcohol Beverage of Choice: [place] Smoking Status: Never a Smoker Type Used: Cigarettes 2nd Hand Smoke Exposure: Yes (NONE FOR 20 YEARS) Recent Infectious Disease Expo: No Recent Hopitalizations: No Immunizations Up To Date Tetanus Booster (TDap): Unknown Date of Pneumonia Vaccine: Feb 09, 2019 Date of Influenza Vaccine: Jan 21, 2020 Seasonal Allergies Seasonal Allergies: Yes Past Medical History Surgeries: Yes (Appy and hysterectomy ; CARDIAC CATHS-LAST ONE 04/12/19-NO INTERVENTION;) Appendectomy, Cardiac, Defibrillator, Hysterectomy, Oophorectomy Respiratory: Yes (HOME O2 AT 3L/NC;PULMONARY HTN;POSSIBLE SARCOIDOSIS;OBESITY/HYPOVENTILATION) Pneumonia, Sleep Apnea, COPD Currently Using CPAP: Yes (WITH O2) Currently Using BIPAP: No Cardiac: Yes (CHF;LBBB;MR/TR;AFIB/FLUTTER-WITH MULT. 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 No Pertinent Family Hx PSH: -CARDIAC CATH--04/11/19--NO INTERVENTION; EF 50%, NO SIGNIFICANT CAD PMH: -SEVERE MITRAL REGURGITATION/TRIUCUSPIC REGURG -MILD CAROTID DISEASE Physical Exam Vital Signs Vital Signs - First Documented 09/23/20 19:25 Temp 36.7 Pulse 71 Resp 19 B/P (MAP) 133/96 (108) Pulse Ox 96 O2 Delivery Nasal Cannula O2 Flow Rate 4.00 Height, Weight, BMI Height: 5'5.00" Weight: 243lbs. 0.2oz. 97.475228qx; 39.00 BMI Method:Stated Procedures/Interventions Nasal : Nasal Location: Left Nasal Drops Instilled: Afrin Inspection with: Otoscope Nasal Procedures: Rapid Rhino Progress LARGE CLOT REMOVED FROM LEFT NARE AFRIN AND TXA INSTILLED INTO LEFT NARE RAPID RHINO 5.5 CM SATURATED WITH TXA PLACED IN LEFT NARE. BLOOD CLEARED FROM POSTERIOR PHARYNX WITH PT GARGLING Progress/Results/Core Measures Results/Orders Lab Results Laboratory Tests Test 09/23/20 19:38 Range/Units White Blood Count 6.5 4.3-11.0 10^3/uL Red Blood Count 3.03 L 3.80-5.11 10^6/uL Hemoglobin 9.1 L 11.5-16.0 g/dL Hematocrit 29 L 35-52 % Mean Corpuscular Volume 96 80-99 fL Mean Corpuscular Hemoglobin 30 25-34 pg Mean Corpuscular Hemoglobin Concent 31 L 32-36 g/dL Red Cell Distribution Width 20.9 H 10.0-14.5 % Platelet Count 180 130-400 10^3/uL Mean Platelet Volume 11.1 9.0-12.2 fL Prothrombin Time 19.9 H 12.2-14.7 SEC INR Comment 1.7 H 0.8-1.4 Activated Partial Thromboplast Time 33 24-35 SEC My Orders Orders - TANA SHAW DO Cbc No Diff (09/23/20 19:28) Protime With Inr (09/23/20 19:28) Partial Thromboplastin Time (09/23/20 19:28) Oxymetazoline 0.05% Nasal [place] (Afrin 0. (09/23/20 21:00) Tranexamic Acid Injection (Cyklokapron I (09/23/20 19:30) Medications Given in ED Current Medications Medications Dose Ordered Sig/Jennifer Route Start Time Stop Time Status Last Admin Dose Admin Tranexamic Acid ONCE ONCE NA 09/23/20 19:30 09/23/20 19:31 DC 09/23/20 19:45 100 MG Vital Signs/I&O 09/23/20 19:25 Temp 36.7 Pulse 71 Resp 19 B/P (MAP) 133/96 (108) Pulse Ox 96 O2 Delivery Nasal Cannula O2 Flow Rate 4.00 Blood Pressure Mean: 108 Progress Progress Note : Progress Note PT OBSERVED IN ER FOR AN HOUR AFTER PACKING WAS PLACED NO FURTHER BLEEDING NOTED. Departure Impression Primary Impression: PERSISTENT EPISTAXIS Additional Impressions: ELIQUIS THERAPY Chronic anemia CHRONIC ANEMI Disposition: 01 HOME, SELF-CARE Condition: Stable Departure-Patient Inst. Referrals: MORGAN JOLLY MD, RONALD D MD (PCP) Primary Care Physician Patient Instructions: Nosebleeds (DC) Add. Discharge Instructions: LEAVE PACKING IN PLACE DO NOT RUB OR BLOWN NOSE CONTINUE YOUR MEDICATIONS PRESCRIBED USE YOUR OXYGEN BY MOUTH, INSTEAD OF YOUR NOSE KEEP YOUR APPOINTMENT WITH DR. JOLLY ON FRIDAY, RETURN TO ER IF YOU RE-BLEED All discharge instructions reviewed with patient and/or family. Voiced understanding. TANA SHAW DO September 23, 2020 20:09
[2020-09-23] MEDS ORDERED: OXYMETAZOLINE (AFRIN) 0.05% NA 30 ML BTL SCH (21:00)
[2020-09-23 21:03] VITALS: BP 135/92
== END 2020-09-23 21:03 | disposition home or self-care (01) ==
LOC: EDUNIT# 18:48 → ER 18:50
DX: R04.0 Epistaxis (principal); D63.1 Anemia in chronic kidney disease; I13.0 Hypertensive heart and chronic kidney disease with heart failure and stage 1 through stage 4 chronic kidney disease, or unspecified chronic kidney disease; N18.4 Chronic kidney disease, stage 4 (severe); I50.9 Heart failure, unspecified; I44.7 Left bundle-branch block, unspecified; J44.9 Chronic obstructive pulmonary disease, unspecified; I48.91 Unspecified atrial fibrillation; G47.30 Sleep apnea, unspecified; E66.01 Morbid (severe) obesity due to excess calories; Z79.01 Long term (current) use of anticoagulants; Z99.89 Dependence on other enabling machines and devices; Z68.39 Body mass index [BMI] 39.0-39.9, adult; Z77.22 Contact with and (suspected) exposure to environmental tobacco smoke (acute) (chronic); Z95.810 Presence of automatic (implantable) cardiac defibrillator; Z79.82 Long term (current) use of aspirin; Z79.51 Long term (current) use of inhaled steroids; Z79.52 Long term (current) use of systemic steroids; Z79.899 Other long term (current) drug therapy
CPT/HCPCS: 36415; 85027; 85610; 85730; 99281

== ENCOUNTER → 2020-09-26 | Outpatient (CLI) | payer BC, MEDICARE ==
[~2020-09-26] MED LIST changes: +AMIO400T5 PO; +ATOR40TA70 PO; +BUME1TAB8 PO; +HYDR-3923 PO; +IRON150C3 PO; +ISOS10TA66 PO
--- NOTE | 2020-09-26 14:50 | Diagnostic Imaging Report ---
PROCEDURE: CT chest without contrast. TECHNIQUE: Multiple contiguous axial images were obtained through the chest without the use of intravenous contrast. Auto Exposure Controls were utilized during the CT exam to meet ALARA standards for radiation dose reduction. INDICATION: Abnormal findings of the lung [place], pulmonary nodules. COMPARISON: 04/18/2020, 11/30/2019 and 12/01/2017 FINDINGS: Pacer device is again identified with battery pack overlying left chest. Multiple calcified mediastinal and hilar lymph nodes are again identified. No pathologically enlarged lymph nodes within the chest, though evaluation slightly limited secondary to lack of intravenous contrast. Mild scattered vascular calcifications, including within the coronary arteries. No aneurysmal dilatation of the thoracic aorta. The heart is significantly enlarged, similar to the prior examination. No significant pericardial effusion. No pleural effusion. No pneumothorax. The trachea is patent. Calcified granuloma are present in the lungs bilaterally. Sub-0.6 cm subpleural left lower lobe pulmonary nodules are again identified and unchanged since 2018, therefore, benign. No new pulmonary nodule or opacity. Scarring and atelectasis within the right middle lobe again identified. Tiny hiatal hernia. Cholelithiasis. The partially visualized upper abdomen is otherwise unremarkable. Scattered osseous degenerative changes without acute osseous abnormality. IMPRESSION: Stable significant cardiomegaly without pericardial effusion or pleural effusion. Mild background senescent changes of the lungs with stable tiny bilateral pulmonary nodules which have not significantly changed since 2018. No new pulmonary nodules. Evidence of chronic granulomatous disease. Cholelithiasis. Additional findings as above. Dictated by: Dictated on workstation # [id number]
== END ==
LOC: RAD 09-21 10:17
PROVIDERS: ATTEND Internal Medicine Critical Care Medicine
DX: R91.8 Other nonspecific abnormal finding of lung field (principal); J90 Pleural effusion, not elsewhere classified; I51.7 Cardiomegaly; D71 Functional disorders of polymorphonuclear neutrophils
CPT/HCPCS: 71250

== ENCOUNTER 2020-09-28 13:44 | Outpatient (CLI) | payer BC, MEDICARE ==
[~2020-09-28] VITALS: Ht 165.1 cm; Wt 109.1 kg
[~2020-09-28 13:44] MED LIST changes: -AMIO400T5 PO; -ATOR40TA70 PO; -BUME1TAB8 PO; -HYDR-3923 PO; -IRON150C3 PO; -ISOS10TA66 PO
[2020-09-28] MEDS ORDERED: MTP25TSR PO (15:57)
[2020-09-28] MEDS ORDERED: ISOS10TA66 PO (15:57)
[2020-09-28] MEDS ORDERED: IRON150C3 PO (15:57)
[2020-09-28] MEDS ORDERED: HYDR-3923 PO (15:57)
[2020-09-28] MEDS ORDERED: AMIO400T5 PO (15:57)
[2020-09-28] MEDS ORDERED: ATOR40TA70 PO (15:57)
[2020-09-28] MEDS ORDERED: BUME1TAB8 PO (15:57)
== END 2020-09-28 15:59 | disposition home or self-care (01) ==
LOC: PREOP 13:44
PROVIDERS: ATTEND Otolaryngology Otolaryngology/Facial Plastic Surgery
DX: Z01.818 Encounter for other preprocedural examination (principal)

== ENCOUNTER 2020-10-05 07:18 | Day surgery (SDC) | payer BC, MEDICARE ==
[~2020-10-05] VITALS: Ht 165.1 cm; Wt 109.1 kg
[2020-10-05] VITALS (10 sets, daily range): BP systolic 117–130; BP diastolic 61–77
[~2020-10-05 07:18] MED LIST changes: +AMIO400T5 PO; +ATOR40TA70 PO; +BUME1TAB8 PO; +HYDR-3923 PO; +IRON150C3 PO; +ISOS10TA66 PO
[2020-10-05] MEDS ORDERED: LACTATED RINGERS 1,000 ML IV PRN (07:45)
[2020-10-05] MEDS ORDERED: proPOfol 200 MG/20 ML (DIPRIVAN) VIAL IV ONE (08:09)
[2020-10-05] MEDS ORDERED: fentaNYL INJ 100 MCG/2 ML AMP ONE (08:09)
[2020-10-05] MEDS ORDERED: LIDOCAINE PF 2% 5 ML (XYLOCAINE) VIAL ONE (08:09)
[2020-10-05] MEDS ORDERED: COCAINE HCL 4% 2 ML SYR ONE (08:09)
[2020-10-05] MEDS ORDERED: SEVOFLURANE (ULTANE) 15 ML INHAL SOLN ONE (08:09)
[2020-10-05] MEDS ORDERED: ONDANSETRON 4 MG/2 ML (SDV) Z0FRAN ONE (08:09)
[2020-10-05] MEDS ORDERED: PHENYLEPHRINE 0.5% NASAL SPR (NEO-SYNEPHRINE) REG ONE (08:10)
[2020-10-05] MEDS ORDERED: BSS 15 ML ONE (08:10)
[2020-10-05] MEDS ORDERED: MIDAZOLAM 2 MG/2 ML (VERSED) VIAL ONE (08:10)
[2020-10-05] MEDS ORDERED: LIDOCAINE/EPI 1%-1:100,000 (XYLOCAINE) 20ML ONE (08:10)
[2020-10-05] MEDS ORDERED: NS IV 1000 ML 1,000 ML IV SCH ×2 (08:15→09:30)
--- NOTE | 2020-10-05 09:11 | Progress Note-Pre Operative ---
Pre-Operative Progress Note H&P Reviewed The H&P was reviewed, patient examined and no changes noted. Date Seen by Provider: October 05, 2020 Time Seen by Provider: 09:00 Date H&P Reviewed: October 05, 2020 Time H&P Reviewed: 09:00 Pre-Operative Diagnosis: Nasal Septal Perforation with Recurrent Bleeding MORGAN HAIR MD October 05, 2020 09:11
--- NOTE | 2020-10-05 09:22 | Progress Note-Post Operative ---
Post-Operative Progess Note Surgeon (s)/[employer]lo[employer] Weaver (s) Surgeon MORGAN HAIR MD [employer] Weaver n/a Pre-Operative Diagnosis Nasal Septal Perforation with Recurrent Bleeding Post-Operative Diagnosis same Post-Op Procedure Note Date of Procedure: October 05, 2020 Name of Procedure Performed: Insertion of Nasoseptal Button Description & Findings Description and Findings: n/a Anesthesia Type gen Estimated Blood Loss minimal Packing none. Specimen(s) collected/removed none MORGAN HAIR MD October 05, 2020 09:22
[2020-10-05] MEDS ORDERED: APAP 325 MG/10.15 ML LIQ (TYLENOL) UDC PO PRN (09:30)
[2020-10-05] MEDS ORDERED: PHENYLEPHRINE 100 MCG/ML 10 ML (ANESTHESIA) SYR ONE (09:33)
--- NOTE | 2020-10-05 09:55 | Anesthesia-General Post-Op ---
General Patient Condition Mental Status/LOC: Same as Preop Cardiovascular: Satisfactory Nausea/Vomiting: Absent Respiratory: Satisfactory Pain: Controlled Complications: Absent Post Op Complications Complications None Follow Up Care/Instructions Patient Instructions None needed. Anesthesia/Patient Condition Patient Condition Patient is doing well, no complaints, stable vital signs, no apparent adverse anesthesia problems. No complications reported per nursing. MARTY FINE CRNA October 05, 2020 09:55
== END 2020-10-05 12:40 | disposition home or self-care (01) ==
LOC: SDC 07:18
PROVIDERS: ATTEND Otolaryngology Otolaryngology/Facial Plastic Surgery
DX: J34.89 Other specified disorders of nose and nasal sinuses (principal); R04.0 Epistaxis; I25.10 Atherosclerotic heart disease of native coronary artery without angina pectoris; I73.9 Peripheral vascular disease, unspecified; I44.7 Left bundle-branch block, unspecified; G47.33 Obstructive sleep apnea (adult) (pediatric); J44.9 Chronic obstructive pulmonary disease, unspecified; I13.0 Hypertensive heart and chronic kidney disease with heart failure and stage 1 through stage 4 chronic kidney disease, or unspecified chronic kidney disease; N18.4 Chronic kidney disease, stage 4 (severe); I50.42 Chronic combined systolic (congestive) and diastolic (congestive) heart failure; I27.20 Pulmonary hypertension, unspecified; D86.0 Sarcoidosis of lung; J98.4 Other disorders of lung; I48.91 Unspecified atrial fibrillation; Z79.01 Long term (current) use of anticoagulants; Z79.82 Long term (current) use of aspirin; Z79.899 Other long term (current) drug therapy; Z95.810 Presence of automatic (implantable) cardiac defibrillator; Z99.81 Dependence on supplemental oxygen; Z79.51 Long term (current) use of inhaled steroids; Z98.890 Other specified postprocedural states
CPT/HCPCS: 87081; 87635